=== PATIENT | male | born 1975 | race Caucasian/White ===

== ENCOUNTER 2019-06-29 12:17 | Inpatient (IN) | payer SELFPAY ==
[2019-06-29] VITALS (15 sets, daily range): BP systolic 142–180; BP diastolic 77–107; PULSE 77–95; RESP 18; TEMP 37.4–38; O2SAT 96–99
--- NOTE | 2019-06-29 12:37 | ED.GENADUL_ITS ---
Discharge Plan Disposition Patient Disposition: [facility] INPATIENT Condition: Stable Discharge Details Chief Complaint: Abd Prob Clinical Impression: Acute diverticulitis Admit Date/Time: 06/29/19 15:53 Admit Provider: Janice Petit Attending Provider: Janice Petit Primary Care Provider: None,None ED Provider: Neelima Morrell Discharge Data Discharge Date/Time-TO BE ENTERED AT DEPARTURE: 06/29/19 17:32 Medical Decision Making 1225 -- 44-year-old male with no history of abdominal surgery presents with 1 week of abdominal pain, worse since yesterday now with nausea presenting here with fever. Patient appears uncomfortable. Temp 100.4. Hypertensive. Abdomen soft. He has guarding and significant tenderness palpation around umbilicus and across lower abdomen. Positive rebound. Positive psoas sign. Surgeon Dr. Petit was in the emergency department and offered to evaluate patient while she was here. Patient had complained of a lump around his umbilicus but it appears that this is likely normal anatomic tissue or fascia and does not appear consistent with a hernia. Differential diagnosis includes appendicitis, diverticulitis, small bowel obstruction, incarcerated hernia. Will place an IV, bolus IV fluids, screening labs, lactate, blood cultures, CT abdomen and pelvis and give a dose of Zofran and morphine. 1520 --labs and imaging reviewed. White blood cell count 12. Normal electrolytes. Lactate 1.4. Lipase normal. CT notes findings consistent with diverticulitis, no abscess or free air. Patient states his pain is returning. Patient appears mildly uncomfortable. Patient would feel more comfortable being admitted overnight and surgeon is in agreement with this plan. Discussed with Dr. Oquendo who accepts patient for admission. Will start IV antibiotics and continue IV pain medication. Medical Records Medical records reviewed: Yes I reviewed the patient's medical records. Imaging Data Radiologic Study: Radiologist's impression: CT ABDOMEN AND PELVIS W CLINICAL HISTORY: lower abd pain, r/o appendicitis/diverticulitis/small bowel obstruction/incarcerated hernia. TECHNIQUE: CT of the abdomen and pelvis was carried out according to the usual protocol with an intravenous injection 100 cc of Omnipaque 350. COMPARISON: No exams were available for comparison FINDINGS: Regions of dependent atelectasis are noted involving the lung bases. The liver is unremarkable. The bladder is dilated. There is no evidence of wall thickening or pericholecystic fluid. There is no evidence of cholelithiasis. There is no evidence of ductal dilatation. The pancreas is unremarkable. The spleen, kidneys and adrenals are unremarkable. There is no evidence of bowel obstruction. The appendix is normal. Descending and sigmoid diverticula are identified. There is considerable wall thickening and adjacent inflammatory gertrude nges involving the proximal sigmoid colon, findings consistent with diverticulitis. There is no apparent abscess. There is no evidence of perforation. The bladder appears intact. Reproductive organs as visualized are unremarkable. There are small bilateral fat-containing inguinal hernias. There is a small fat-containing umbilical hernia. There is no evidence of an aortic aneurysm. No acute bony abnormality is evident. IMPRESSION: Sigmoid diverticulitis. No evidence of abscess or perforation. Lab Data Lab results reviewed: Yes I reviewed the patient's lab results. Labs: 06/29/19 13:50 Blood Blood Culture - Pending 06/29/19 13:15 Blood Blood Culture - Pending Laboratory Tests Range/Units 06/29/19 06/29/19 06/29/19 13:15 13:15 13:15 WBC (4.4-10.8) k/cumm 12.77 H RBC (4.50-6.00) m/cumm 4.71 Hgb (13.5-17.5) g/dL 14.8 Hct (40.0-50.0) % 43.3 MCV (80-95) fL 91.9 MCH (27.0-33.0) pg 31.4 MCHC (32.0-36.0) g/dL 34.2 RDW (11.8-14.1) % 13.0 Plt Count (130-400) x1000/uL 278 MPV (8.0-11.0) fL 9.1 Immature Gran % 0.3 Neutrophils % 76.3 Lymphocytes % 11.4 Monocytes % 11.2 Eosinophils % 0.6 Basophils % 0.2 Absolute Neutrophils (1.2-6.7) k/cumm 9.74 H Absolute Lymphocytes (1.2-3.4) k/cumm 1.46 Absolute Monocytes (0.11-0.7) k/cumm 1.43 H Absolute Eosinophils (0.0-0.7) k/cumm 0.08 Absolute Basophils (0.0-0.2) k/cumm 0.03 Sodium (136-145) mmol/L 141 Potassium (3.5-5.1) mmol/L 4.0 Chloride (98-107) mmol/L 105 Carbon Dioxide (21.0-32.0) mmol/L 23.7 Anion Gap (3-11) mmol/L 12.3 H BUN (7-18) mg/dL 9 Creatinine (0.70-1.30) mg/dL 0.98 Estimated GFR/1.73 m2 (mL/min/1.73m2) >= 60.00 Glucose (70-100) mg/dL 101 H Lactate (0.6-1.4) mmol/L 1.4 Calcium (8.5-10.1) mg/dL 8.3 L Total Bilirubin (0.2-1.0) mg/dL 0.9 AST (15-37) U/L 21 ALT (16-63) U/L 31 Alkaline Phosphatase (46-116) U/L 63 Total Protein (6.4-8.2) g/dL 7.6 Albumin (3.4-5.0) g/dL 3.7 Lipase (73-393) U/L 128 HPI General Mode of arrival: ambulatory . Date/Time Provider Initiated Documentation: 06/29/19 12:27 . Limitations to Documentation: no limitations . Information obtained by: patient . HPI Narrative: Patient is a 43-year-old male with no significant past medical history presents with abdominal pain for the past week, worse since yesterday. He describes the pain is constant, dull and aching with intermittent sharp stabbing pain. He denies any aggravating or alleviating factors. He admits to nausea starting today but denies any vomiting or diarrhea. Last bowel movement this morning and normal. He denies any known fever, urinary symptoms, recent travel, recent antibiotics. Related Data Home Medications Medication Instructions Recorded Confirmed ibuprofen 800 mg PO Q4H PRN PRN 12/10/15 06/29/19 amoxicillin-pot clavulanate 1 tab PO BID #14 tab 07/01/19 hydrocodone-acetaminophen 1 tab PO Q4H PRN #20 tab 07/01/19 Previous Rx's Medication Instructions Recorded amoxicillin-pot clavulanate 1 tab PO BID #14 tab 07/01/19 hydrocodone-acetaminophen 1 tab PO Q4H PRN #20 tab 07/01/19 Allergies Allergy/AdvReac Type Severity Reaction Status Date / Time Sulfa (Sulfonamide Allergy Severe fatal Unverified 06/29/19 12:24 Antibiotics) sulfamethoxazole Allergy Severe fatal Unverified 06/29/19 12:24 [From Bactrim] trimethoprim [From Bactrim] Allergy Severe fatal Unverified 06/29/19 12:24 General Stated Complaint: Abd Prob [place]: 3 Review of Systems Review of Systems ROS Unobtainable: All systems reviewed & are unremarkable except as noted in HPI and below Constitutional Constitutional: Reports as per HPI, Denies chills and Denies fever(s) Eyes Eyes: Denies blurry vision ENT Ears, Nose, Mouth, and Throat: Denies dizziness, Denies sore throat and Denies throat swelling Cardiovascular Cardiovascular: Denies chest pain and Denies dyspnea Respiratory Respiratory: Denies cough and Denies dyspnea Gastrointestinal Gastrointestinal: Denies abdominal pain, Denies diarrhea and Denies vomiting Genitourinary Genitourinary: Denies hematuria and Denies dysuria Musculoskeletal Musculoskeletal: Denies back pain and Denies numbness Integumentary/Breasts Skin/Breast: Denies lesions and Denies rash Neurologic Neurologic: Denies dizziness, Denies focal weakness and Denies numbness Allergic/Immunologic Allergic/Immunologic: Denies throat swelling [facility] Medical History No significant past medical history (Acute) Surgical History History of knee surgery (Acute) Social History Smoking/Tobacco Use Status: Current every day Alcohol Intake: never Drug use: Occasionally Substance use type: marijuana Do you feel safe at home: Yes Do you feel safe in your relationship?: Yes Exam Const General: cooperative, healthy appearing and no acute distress HENNV Head: normal to inspection Face and sinus: normal facial exam Eyes General: appearance normal, both eyes and all related structures EOM: EOM intact bilaterally Neck Neck: normal visual inspection and No submandibular swelling Lymphatic: no lymphadenopathy noted Chest Chest: normal inspection of the chest and no tenderness Resp Effort & Inspection: normal respiratory effort and able to speak in complete sentences Auscultation: clear to auscultation bilaterally Cardio Rate: regular rate Rhythm: regular rhythm GI Inspection: normal to inspection Palpation: soft, not firm, not rigid and tender (periumbilical/lower) Auscultation: hypoactive bowel sounds Skin General skin exam: no rashes or lesions noted Neuro General: alert, awake and oriented x3 Cognition: normal cognition Speech: speech normal Motor: muscle tone normal throughout Sensory Exam: no sensory deficits noted Extrem General: normal to inspection, full ROM, normal capillary refill, no calf tenderness bilaterally and no edema Psych Appearance: grossly normal Mental Status: mental status grossly normal Speech and Movement: speech and movement normal Affect: normal affect Course Vital Signs Vital signs: Vital Signs Temperature 100.4 F H 06/29/19 12:19 Pulse 95 H 06/29/19 12:19 Respiratory Rate 18 06/29/19 12:19 Blood Pressure 180/107 H 06/29/19 12:19 Pulse Oximetry 98 06/29/19 12:19 Temperature 100.4 F H 06/29/19 12:19 Temperature Source Skin 06/29/19 12:19 Pulse 95 H 06/29/19 12:19 Respiratory Rate 18 06/29/19 12:19 Blood Pressure 180/107 H 06/29/19 12:19 Pulse Oximetry 98 06/29/19 12:19 Oxygen Delivery Method Room Air 06/29/19 12:19 Oxygen Flow Rate 0 06/29/19 12:19 Pain Level 7 06/29/19 12:19 Comment denies changes in bowel or bladder 06/29/19 12:19
--- NOTE | 2019-06-29 13:05 | DI.CT_ITS ---
EXAM: CT ABDOMEN AND PELVIS W CLINICAL HISTORY: lower abd pain, r/o appendicitis/diverticulitis/small bowel obstruction/incarcerat ed hernia. TECHNIQUE: CT of the abdomen and pelvis was carried out according to the usual protocol with an intr avenous injection 100 cc of Omnipaque 350. COMPARISON: No exams were available for comparison FINDINGS: Regions of dependent atelectasis are noted involving the lung bases. The liver is unremarkable. The bladder is dilated. There is no evidence of wall thickening or pericholecystic fluid. There is no audi dence of cholelithiasis. There is no evidence of ductal dilatation. The pancreas is unremarkable. Th e spleen, kidneys and adrenals are unremarkable. There is no evidence of bowel obstruction. The josse endix is normal. Descending and sigmoid diverticula are identified. There is considerable wall thic kening and adjacent inflammatory changes involving the proximal sigmoid colon, findings consistent wi th diverticulitis. There is no apparent abscess. There is no evidence of perforation. The bladder a ppears intact. Reproductive organs as visualized are unremarkable. There are small bilateral fat-co ntaining inguinal hernias. There is a small fat-containing umbilical hernia. There is no evidence o f an aortic aneurysm. No acute bony abnormality is evident. IMPRESSION: Sigmoid diverticulitis. No evidence of abscess or perforation.
[2019-06-29 13:29] LABS: Lactate 1.4 mmol/L (0.6-1.4)
[2019-06-29 13:34] LABS: Abs Immature Grans 0.04 k/cumm (0.0-0.09); Absolute Eosinophil Count 0.08 k/cumm (0.0-0.7); Absolute Monocyte Count 1.43 k/cumm (0.11-0.7); Basophils % 0.2; Eosinophils % 0.6; HCT 43.3 % (40.0-50.0); HGB 14.8 g/dL (13.5-17.5); Immature Grans % 0.3; Lymphocytes % 11.4; Mean Corp. HGB Concentration 34.2 g/dL (32.0-36.0); Mean Corpuscular Hemoglobin 31.4 pg (27.0-33.0); Mean Corpuscular Volume 91.9 fL (80-95); Mean Platelet Volume 9.1 fL (8.0-11.0); Monocytes % 11.2; Neutrophils % 76.3; Platelet Count 278 x1000/uL (130-400); RBC 4.71 m/cumm (4.50-6.00); White Blood Cell Count 12.77 k/cumm (4.4-10.8)
[2019-06-29 13:35] LABS: Absolute Basophil Count 0.03 k/cumm (0.0-0.2); Absolute Lymphocyte Count 1.46 k/cumm (1.2-3.4); Absolute Neutrophil Count 9.74 k/cumm (1.2-6.7)
[2019-06-29] MEDS: Normal Saline 1,000 ML 1000 ML IV (13:38)
[2019-06-29] MEDS: Ondansetron 4 MG/2 ML VIAL IVP (13:38)
[2019-06-29] MEDS: ACETAMINOPHEN 1,000 MG/100 ML BTL 400 MG IVPB (13:38)
[2019-06-29 13:51] LABS: ALT 31 U/L (16-63); AST 21 U/L (15-37); Albumin 3.7 g/dL (3.4-5.0); Alkaline Phosphatase 63 U/L (46-116); Anion Gap 12.3 mmol/L (3-11); BUN 9 mg/dL (7-18); Bilirubin, Total 0.9 mg/dL (0.2-1.0); CO2 23.7 mmol/L (21.0-32.0); CREATININE 0.98 mg/dL (0.70-1.30); Calcium 8.3 mg/dL (8.5-10.1); Chloride 105 mmol/L (98-107); Glucose 101 mg/dL (70-100); Lipase 128 U/L (73-393); Sodium 141 mmol/L (136-145); Total Protein 7.6 g/dL (6.4-8.2)
[2019-06-29] MEDS: Omnipaque 350 MG/ML 100 ML BTL IJ (14:46)
[2019-06-29 15:50] LABS: Bilirubin Negative (Negative); Blood Negative (Negative); Clarity Clear (Clear); Glucose Negative (Negative); Ketones Negative (Negative); Leukocyte Esterase Negative (Negative); Nitrite Negative (Negative); Specific Gravity 1.015 (1.005-1.025); Urobilinogen 0.2 EU/dL (Up TO 0.2)
--- NOTE | 2019-06-29 16:00 | HPE_ITS ---
Date of service: 06/29/19 Time of Service: 12:39 Assessment and Plan Assessment and plan (1) Diverticulitis large intestine: Status: Acute Assessment and plan: The patient will be admitted for IV antibiotics, fluids, pain management. CBC ordered for the am Clear liquid diet Qualifiers: Diverticulitis bleeding: without bleeding Diverticulitis complication: without perforation or abscess Qualified Code(s): K57.32 - Diverticulitis of large intestine without perforation or abscess without bleeding History of Present Illness Narrative: This patient presented to the emergency department today with complaints of lower abdominal pain and a small lump at his umbilicus. He noted the lump yesterday but was having abdominal complaints for 2 or 3 days prior. He also noticed some chills and nausea but no vomiting. No change in bowel habits. He notes some urinary frequency. His appetite is good. He last ate last evening and only had some water today. CT scan of the abdomen pelvis is reviewed by me and shows evidence of sigmoid diverticulitis. The inflammation is adjacent to his bladder which accounts for his urinary symptoms. Review of Systems Constitutional Constitutional: Denies fatigue and Denies headache(s) Eyes Eyes: Denies change in vision ENT Ears, Nose, Mouth, and Throat: Denies headache(s) and Denies neck mass Cardiovascular Cardiovascular: Denies chest pain, Denies edema, Denies palpitations and Denies dyspnea Respiratory Respiratory: Denies cough, Denies dyspnea and Denies wheezing Gastrointestinal Gastrointestinal: Denies hematochezia and Denies change in bowel habits Musculoskeletal Musculoskeletal: Denies joint swelling Integumentary/Breasts Skin/Breast: Denies new lesions and Denies rash Neurologic Neurologic: Denies confusion, Denies headache(s) and Denies focal weakness Psychiatric Psychiatric: Reports system reviewed and no additional complaints, except as docu and Denies confusion Endocrine Endocrine: Denies fatigue and Denies palpitations Hematologic/Lymphatic Hematologic/Lymphatic: Denies easy bleeding and Denies lymphadenopathy Allergic/Immunologic Allergic/Immunologic: Denies wheezing [facility] Medical History No significant past medical history (Acute) Surgical History History of knee surgery (Acute) Social History (Reviewed 06/29/19 @ 13:22 by JOHNATHAN Reynolds Smoking/Tobacco Use Status: Current every day Alcohol Intake: never Drug use: Occasionally Substance use type: marijuana Do you feel safe at home: Yes Do you feel safe in your relationship?: Yes Meds Home Medications and Allergies Home Medications Medication Instructions Recorded Confirmed Type ibuprofen 800 mg PO Q4H PRN PRN 12/10/15 06/29/19 History Allergies Allergy/AdvReac Type Severity Reaction Status Date / Time Sulfa (Sulfonamide Allergy Severe fatal Unverified 06/29/19 12:24 Antibiotics) sulfamethoxazole Allergy Severe fatal Unverified 06/29/19 12:24 [From Bactrim] trimethoprim [From Bactrim] Allergy Severe fatal Unverified 06/29/19 12:24 Exam Const Nutritional Appearance: well nourished Orientation: oriented x3 Other: Appears uncomfortable HENMT Head: normal to inspection Eyes Sclera: sclerae normal Pupils: PERRL Neck Neck: no lymphadenopathy Thyroid: thyroid normal Resp Effort & Inspection: normal respiratory effort Auscultation: clear to auscultation bilaterally and no wheezes Cardio Rate: regular rate Rhythm: regular rhythm GI Inspection: non-distended Palpation: soft and no hepatosplenomegaly Other: Small soft umbilical hernia present. Does not seem to be source of symptoms. Bilateral lower abdominal tenderness present, no peritonitis Skin General skin exam: no rashes or lesions noted Neuro General: alert Cognition: normal cognition Extrem General: normal to inspection Psych Affect: normal affect Attitude: cooperative Results Labs Result diagrams: 06/29/19 13:15 06/29/19 13:15 Labs: Laboratory Results - last 24 hr 06/29/19 06/29/19 06/29/19 13:15 13:15 13:15 WBC 12.77 H RBC 4.71 Hgb 14.8 Hct 43.3 MCV 91.9 MCH 31.4 MCHC 34.2 RDW 13.0 Plt Count 278 MPV 9.1 Immature Gran % 0.3 Neutrophils % 76.3 Lymphocytes % 11.4 Monocytes % 11.2 Eosinophils % 0.6 Basophils % 0.2 Absolute Neutrophils 9.74 H Absolute Lymphocytes 1.46 Absolute Monocytes 1.43 H Absolute Eosinophils 0.08 Absolute Basophils 0.03 Sodium 141 Potassium 4.0 Chloride 105 Carbon Dioxide 23.7 Anion Gap 12.3 H BUN 9 Creatinine 0.98 Estimated GFR/1.73 m2 >= 60.00 Glucose 101 H Lactate 1.4 Calcium 8.3 L Total Bilirubin 0.9 AST 21 ALT 31 Alkaline Phosphatase 63 Total Protein 7.6 Albumin 3.7 Lipase 128 Urine Color Urine Clarity Urine pH Ur Specific [place] Urine Protein Urine Ketones Urine Blood Urine Nitrite Urine Bilirubin Urine Urobilinogen Ur Leukocyte Esterase Urine Glucose 06/29/19 15:44 WBC RBC Hgb Hct MCV MCH MCHC RDW Plt Count MPV Immature Gran % Neutrophils % Lymphocytes % Monocytes % Eosinophils % Basophils % Absolute Neutrophils Absolute Lymphocytes Absolute Monocytes Absolute Eosinophils Absolute Basophils Sodium Potassium Chloride Carbon Dioxide Anion Gap BUN Creatinine Estimated GFR/1.73 m2 Glucose Lactate Calcium Total Bilirubin AST ALT Alkaline Phosphatase Total Protein Albumin Lipase Urine Color Yellow Urine Clarity Clear Urine pH 6.0 Ur Specific [place] 1.015 Urine Protein Negative Urine Ketones Negative Urine Blood Negative Urine Nitrite Negative Urine Bilirubin Negative Urine Urobilinogen 0.2 Ur Leukocyte Esterase Negative Urine Glucose Negative Last Vital Signs Temp 100.4 F H 06/29/19 12:19 Pulse 77 06/29/19 14:16 Resp 18 06/29/19 12:19 BP 163/93 H 06/29/19 14:16 Pulse Ox 96 06/29/19 14:30
[2019-06-29] MEDS: Normal Saline Flush 10 ML SYR IVP ×2 (18:14→20:57)
[2019-06-29] MEDS: Lactated Ringers 1,000 ML 75 ML IV (18:25)
--- NOTE | 2019-06-29 18:35 | NUR.NOTE ---
Nursing Note: Pt to [facility] floor at 1737 from ER via stretcher. Ambulated independently from stretcher to bed. A&Ox3, VSS. BSx4. Pain 8/10; morphine administered with good relief. Pt oriented to MS floor, call ordaz, TV, etc. Call ordaz within reach. RN will continue to monitor.
[2019-06-29] MEDS: CIPROFLOXACIN 400 MG/200 ML BAG 200 MG IVPB (20:05)
[2019-06-29] MEDS: Acetaminophen 325 MG TAB 650 MG PO (20:30)
[2019-06-29] MEDS: metroNIDAZOLE 500 MG/100 ML BAG 100 MG IVPB (22:01)
[2019-06-30] VITALS (8 sets, daily range): BP systolic 134–157; BP diastolic 79–98; PULSE 67–76; RESP 17–18; TEMP 36.5–37.9; O2SAT 96–98
[2019-06-30] MEDS: metroNIDAZOLE 500 MG/100 ML BAG 100 MG IVPB ×3 (04:27→19:47)
[2019-06-30] MEDS: Normal Saline Flush 10 ML SYR IVP ×7 (04:27→17:56)
[2019-06-30] MEDS: CIPROFLOXACIN 400 MG/200 ML BAG 200 MG IVPB ×2 (06:16→17:52)
[2019-06-30 07:12] LABS: Abs Immature Grans 0.03 k/cumm (0.0-0.09); Absolute Basophil Count 0.01 k/cumm (0.0-0.2); Absolute Eosinophil Count 0.11 k/cumm (0.0-0.7); Absolute Lymphocyte Count 1.36 k/cumm (1.2-3.4); Absolute Monocyte Count 0.97 k/cumm (0.11-0.7); Basophils % 0.1; Eosinophils % 1.2; HCT 38.7 % (40.0-50.0); HGB 13.3 g/dL (13.5-17.5); Immature Grans % 0.3; Lymphocytes % 15.2; Mean Corp. HGB Concentration 34.4 g/dL (32.0-36.0); Mean Corpuscular Hemoglobin 32.2 pg (27.0-33.0); Mean Corpuscular Volume 93.7 fL (80-95); Mean Platelet Volume 9.1 fL (8.0-11.0); Monocytes % 10.9; Neutrophils % 72.3; Platelet Count 244 x1000/uL (130-400); RBC 4.13 m/cumm (4.50-6.00); RBC Distribution Width 12.9 % (11.8-14.1); White Blood Cell Count 8.93 k/cumm (4.4-10.8)
[2019-06-30 07:14] LABS: Absolute Neutrophil Count 6.46 k/cumm (1.2-6.7)
--- NOTE | 2019-06-30 12:19 | PHARADMIT ---
Admission Pharmacy Clinical Review Diverticulitis Code Status Full Code Current Weight Wgt-97.5 kg Renally Cleared and Narrow Therapeutic Index Meds CrCl~ 104 mL/min Meds-OK QTc Value / Action Taken NA BP Control, Fever BP- 145/97 Tmax-37.4C Electrolytes reviewed Na-141 K+4.0 DVT Prophylaxis No ? surgery Opiate Usage / Scheduled Bowel Regimen Ordered Yes No (NPO) Plt/SCr for Heparin / Enoxaparin Plts-244 SCr- 0.98 INR for Warfarin na H/H stable, WBC/Bands H&H- 13.3/38.7 WBC- 8.93 Antibiotic appropriateness IV Cipro-Flagyl Cultures and Sensitivities B;lood-pending Surgical ABX d/c within 24 hr na DM control / Insulin Dosing BG-101 Heart Failure (Check EF%) (NEETA's, B-Block, Diuretics) none IV to PO Switch No Home Meds Reviewed Yes Home Meds Not Ordered Ibuprofen, amoxil, Medrol Comments
[2019-06-30] MEDS: Ketorolac 30 MG/ML VIAL IVP (12:45)
[2019-06-30] MEDS: Lactated Ringers 1,000 ML 75 ML IV (12:50)
--- NOTE | 2019-06-30 18:42 | PDOC.CMIN ---
- If Service Date Differs Date of service: 06/30/19 Time of Service: 18:43 Care Management Initial Assess REASON FOR HOSPITALIZATION:: Diverticulitis large intestine PAST MEDICAL HISTORY/PAST SURGICAL HISTORY:: Medical History : No significant past medical history (Acute). Surgical History: History of knee surgery (Acute) PREVIOUS FUNCTIONAL STATUS/SOCIAL/FAMILY SUPPORTS:: Taras lives in a single family house in [place] with his girlfriend and a male friend. 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 Taras says he doesn't hospital well. He has a good sense of humor which he displayed often during the conversation, even while experiencing pain. Taras is independent at baseline and is very active. CURRENT FUNCTIONAL STATUS:: Taras was laying in bed when CM met with him. He was pleasant and cooperative and readily engaged in conversation. He stated that he has been sick for most of the past week but kept thinking it would go away. He said he is starting to feel better and that the pain is responding to the medication he is receiving. ADVANCE DIRECTIVES:: provided with a copy of the [facility] AD forms at his request. Has patient been provided with information about the portal?: Yes Did the patient sign up for the portal?: No CODE STATUS:: Full Code INSURANCE COVERAGE / FINANCIAL ISSUES:: self pay CURRENT HOME/COMMUNITY SERVICES/EQUIPMENT:: none currently PRIMARY CARE PHYSICIAN:: None currently POTENTIAL DISCHARGE NEEDS:: Insurance, a primary care physician, follow up care PATIENT/FAMILY EDUCATION NEEDS:: Discharge plan. limitations, follow up plan, Ask Me Three. ANTICIPATED BARRIERS TO DISCHARGE:: none identified TRANSPORTATION:: via private vehicle with friends PLAN:: Taras is being treated for diverticulitis. He will likely be discharged home with no services. He will transport via private vehicle with friends. CM will continue to support patient, family and discharge planning process.
[2019-06-30] MEDS: Acetaminophen 325 MG TAB 650 MG PO (19:46)
--- NOTE | 2019-06-30 23:03 | W.PM.PROGNOT ---
Date of Service Date of service: 06/30/19 Time of Service: 17:40 Assessment and Plan Assessment and plan (1) Diverticulitis large intestine: Status: Acute Assessment and plan: His WBC has improved and exam is slightly better Continues to have fever and require IV narcotic pain meds Will need to stay on IV antibiotics until those issues resolve Qualifiers: Diverticulitis bleeding: without bleeding Diverticulitis complication: without perforation or abscess Qualified Code(s): K57.32 - Diverticulitis of large intestine without perforation or abscess without bleeding Subjective Subjective Interval history since last seen: Still having lower abdominal pain that is being treated with morphine. Umbilicus is no longer tender Tolerating small amount of food but appetite is poor. No N/V Had BM yesterday Exam Narrative Exam Narrative: Appears uncomfortable but not toxic Abdomen soft, tender bilateral lower quadrants but no peritonitis. Stable/slightly improved from yesterday Objective Objective Clinical Data: Abnormal lab results 06/30/19 Range/Units 06:55 RBC 4.13 L (4.50-6.00) m/cumm Hgb 13.3 L (13.5-17.5) g/dL Hct 38.7 L (40.0-50.0) % Absolute Monocytes 0.97 H (0.11-0.7) k/cumm Vital Signs Temperature 100.2 F H 06/30/19 19:46 Temperature Source Tympanic 06/30/19 19:18 Pulse 76 06/30/19 19:18 Pulse Rhythm Regular 06/30/19 08:19 Respiratory Rate 17 06/30/19 19:18 Respiratory Effort Non-Labored 06/30/19 08:19 Respiratory Depth Normal 06/30/19 08:19 Respiratory Pattern Normal 06/30/19 08:19 Blood Pressure 157/91 H 06/30/19 19:18 Blood Pressure Mean 110 06/29/19 14:16 Pulse Oximetry 97 06/30/19 19:18 Oxygen Delivery Method Room Air 06/30/19 19:18 Oxygen Flow Rate 0 06/30/19 19:18 Pain Level 0 06/30/19 19:18 Comment 06/30/19 10:00 Intake & Output 06/29/19 06/30/19 06/30/19 23:59 11:59 23:59 Intake Total 2140 / 2140 1800 / 3461.25 1661.25 / 3461.25 Balance 2140 / 2140 1800 / 3461.25 1661.25 / 346.25 Weight 214 lb 15.987 oz Intake: IV 1420 / 1420 1320 / 2020.25 701.25 / 2020. Oral 720 / 720 480 / 1440 960 / 1440 Other: Urine Color Yellow Urine Appearance Clear Clear Urine Odor Normal Comment pt voiding independently. Pt voiding ad rosa in toilet; removed hat, no measurement. Voiding Methods Toilet Toilet Laboratory Results WBC 8.93 k/cumm (4.4-10.8) D 06/30/19 06:55 RBC 4.13 m/cumm (4.50-6.00) L 06/30/19 06:55 Hgb 13.3 g/dL (13.5-17.5) L 06/30/19 06:55 Hct 38.7 % (40.0-50.0) L 06/30/19 06:55 MCV 93.7 fL (80-95) 06/30/19 06:55 MCH 32.2 pg (27.0-33.0) 06/30/19 06:55 MCHC 34.4 g/dL (32.0-36.0) 06/30/19 06:55 RDW 12.9 % (11.8-14.1) 06/30/19 06:55 Plt Count 244 x1000/uL (130-400) 06/30/19 06:55 MPV 9.1 fL (8.0-11.0) 06/30/19 06:55 Immature Gran % 0.3 06/30/19 06:55 Neutrophils % 72.3 06/30/19 06:55 Lymphocytes % 15.2 06/30/19 06:55 Monocytes % 10.9 06/30/19 06:55 Eosinophils % 1.2 06/30/19 06:55 Basophils % 0.1 06/30/19 06:55 Absolute Neutrophils 6.46 k/cumm (1.2-6.7) 06/30/19 06:55 Absolute Lymphocytes 1.36 k/cumm (1.2-3.4) 06/30/19 06:55 Absolute Monocytes 0.97 k/cumm (0.11-0.7) H 06/30/19 06:55 Absolute Eosinophils 0.11 k/cumm (0.0-0.7) 06/30/19 06:55 Absolute Basophils 0.01 k/cumm (0.0-0.2) 06/30/19 06:55 Sodium 141 mmol/L (136-145) 06/29/19 13:15 Potassium 4.0 mmol/L (3.5-5.1) 06/29/19 13:15 Chloride 105 mmol/L (98-107) 06/29/19 13:15 Carbon Dioxide 23.7 mmol/L (21.0-32.0) 06/29/19 13:15 Anion Gap 12.3 mmol/L (3-11) H 06/29/19 13:15 BUN 9 mg/dL (7-18) 06/29/19 13:15 Creatinine 0.98 mg/dL (0.70-1.30) 06/29/19 13:15 Estimated GFR/1.73 m2 >= 60.00 (mL/min/1.73m2) 06/29/19 13:15 Glucose 101 mg/dL (70-100) H 06/29/19 13:15 Lactate 1.4 mmol/L (0.6-1.4) 06/29/19 13:15 Calcium 8.3 mg/dL (8.5-10.1) L 06/29/19 13:15 Total Bilirubin 0.9 mg/dL (0.2-1.0) 06/29/19 13:15 AST 21 U/L (15-37) 06/29/19 13:15 ALT 31 U/L (16-63) 06/29/19 13:15 Alkaline Phosphatase 63 U/L (46-116) 06/29/19 13:15 Total Protein 7.6 g/dL (6.4-8.2) 06/29/19 13:15 Albumin 3.7 g/dL (3.4-5.0) 06/29/19 13:15 Lipase 128 U/L (73-393) 06/29/19 13:15 Urine Color Yellow (Yellow) 06/29/19 15:44 Urine Clarity Clear (Clear) 06/29/19 15:44 Urine pH 6.0 (5-8) 06/29/19 15:44 Ur Specific [place] 1.015 (1.005-1.025) 06/29/19 15:44 Urine Protein Negative mg/dL (Negative) 06/29/19 15:44 Urine Ketones Negative mg/dL (Negative) 06/29/19 15:44 Urine Blood Negative (Negative) 06/29/19 15:44 Urine Nitrite Negative (Negative) 06/29/19 15:44 Urine Bilirubin Negative (Negative) 06/29/19 15:44 Urine Urobilinogen 0.2 EU/dL (Up TO 0.2) 06/29/19 15:44 Ur Leukocyte Esterase Negative (Negative) 06/29/19 15:44 Urine Glucose Negative mg/dL (Negative) 06/29/19 15:44
[2019-07-01 03:26] VITALS: BP 160/85; PULSE 65; RESP 18; TEMP 37.2; O2SAT 99
[2019-07-01] MEDS: Lactated Ringers 1,000 ML 75 ML IV (03:59)
[2019-07-01] MEDS: metroNIDAZOLE 500 MG/100 ML BAG 100 MG IVPB (04:00)
[2019-07-01] MEDS: CIPROFLOXACIN 400 MG/200 ML BAG 200 MG IVPB (06:45)
[2019-07-01 07:26] VITALS: BP 131/81; PULSE 85; RESP 17; TEMP 36.8; O2SAT 98
[2019-07-01] MEDS: Normal Saline Flush 10 ML SYR IVP ×2 (07:57→11:11)
--- NOTE | 2019-07-01 10:24 | W.PM.DS.N ---
Date of service: 07/01/19 Time of Service: 10:24 DS: Diagnosis Discharge Diagnosis (1) Diverticulitis large intestine: Status: Acute Discharge Plan Disposition Patient Disposition: HOME Condition: Stable Discharge Details Chief Complaint: Abd Prob Clinical Impression: Acute diverticulitis Reason For Visit: DIVERTICULITIS Admit Date/Time: 06/29/19 15:53 Admit Provider: Janice Petit Attending Provider: Janice Petit Primary Care Provider: None,None ED Provider: Neelima Morrell Hospital Course Hospital Course: The patient was admitted with lower abdominal pain, fever and an elevated white blood cell count. CT scan of the abdomen pelvis was consistent with sigmoid diverticulitis without perforation. He was placed on ciprofloxacin and Flagyl. The day after admission his white blood cell count had normalized but he continued to have fever. He also was continuing to require morphine for pain control. The patient was kept for another day of IV antibiotics and on the day of discharge had improved significantly. His temperature had normalized, he was tolerating a diet and was requiring less pain medication. On examination his abdomen revealed decreased distention. He did still have some bilateral lower abdominal tenderness but this was definitely improved from admission. He was discharged home. An off work note was given to him for the following week if needed. He was sent home with oral narcotics and Augmentin. He will follow-up with me in 2 months to discuss a colonoscopy or sooner as needed. Home Meds and New Rx's Prescriptions: New amoxicillin-pot clavulanate 875-125 mg tablet 1 tab PO BID Qty: 14 RF: 0 hydrocodone-acetaminophen 5-325 mg tablet 1 tab PO Q4H PRN (Reason: pain) Qty: 20 RF: 0 Continued ibuprofen 200 MG capsule 800 mg PO Q4H PRN PRNRF: 0 Discharge Instructions Additional Instructions: Call for any concerns including fever, increased pain, vomiting. Do not drive if on narcotic pain meds or if limited by pain. May use Tylenol alternating with ibuprofen for pain control. Ice is also an option. The maximum dose for Tylenol is 4000 mg/day. May use ibuprofen 800 mg every 8 hours as needed. If concerned about constipation, you may use a stool softener or milk of magnesia. Referrals: Janice Petit MD [ [facility] STAFF PHYSICIAN] - (Return in two months to discuss colonoscopy or sooner if symptoms persist) Activity:: Activity as Tolerated Equipment/Supplies:: No Equipment Needed Diet:: As Tolerated Discharge Orders Discharge Orders: Discharge Order (Routine); Ordered 07/01/19 Ordered By: Janice Petit DS: Summary Status at Discharge Functional status at discharge: independent ambulation Overall status at discharge: patient is progressing back to baseline Mental Status: mental status grossly normal Speech and Movement: speech and movement normal Mood: congruent mood Affect: normal affect Exam Psych Mental Status: mental status grossly normal Speech and Movement: speech and movement normal Mood: congruent mood Affect: normal affect DS: Data Vitals/I&O Vitals and I&O: Vital Signs Temperature 98.2 F 07/01/19 07:26 Temperature Source Tympanic 07/01/19 07:26 Pulse 85 07/01/19 07:26 Pulse Rhythm Regular 07/01/19 07:55 Respiratory Rate 17 07/01/19 07:26 Respiratory Effort Non-Labored 07/01/19 07:55 Respiratory Depth Normal 07/01/19 07:55 Respiratory Pattern Normal 07/01/19 07:55 Blood Pressure 131/81 07/01/19 07:26 Blood Pressure Mean 110 06/29/19 14:16 Pulse Oximetry 98 07/01/19 07:26 Oxygen Delivery Method Room Air 07/01/19 07:26 Oxygen Flow Rate 0 07/01/19 07:26 Pain Level 5 07/01/19 07:57 Comment 06/30/19 10:00 Intake & Output 06/30/19 06/30/19 07/01/19 11:59 23:59 11:59 Intake Total 1800 / 3761.25 196. / 3761.25 2079. / 2079.00 Balance 1800 / 3761.25 1960. / 1.25 2079. / 2079.00 Intake: IV 1320 / 2321.25 1001.25 / 2321.25 800.00 / 800.00 Oral 480 / 1440 960 / 1440 1280 / 1280 Other: Urine Color Yellow Yellow Urine Appearance Clear Clear Clear Urine Odor Normal Normal Comment Pt voiding ad rosa in toilet; removed hat, no measurement. Pt voiding ad rosa in toilet. Removed hat. Pt denies sx. Voiding Methods Toilet Toilet Toilet Data Completed and Pending Labs on day of discharge: Preliminary micro results at discharge 06/29/19 13:50 Blood Culture - Preliminary Blood NO GROWTH 24 HOURS 06/29/19 13:15 Blood Culture - Preliminary Blood NO GROWTH 24 HOURS [facility]LY [facility], [facility] Medical History No significant past medical history (Acute) Surgical History History of knee surgery (Acute) Social History Smoking/Tobacco Use Status: Current every day Alcohol Intake: never Drug use: Occasionally Substance use type: marijuana Do you feel safe at home: Yes Do you feel safe in your relationship?: Yes
[2019-07-01 11:55] VITALS: BP 124/105; PULSE 86; RESP 17; TEMP 36.9; O2SAT 97
--- NOTE | 2019-07-01 13:56 | CMDISCH_ITS ---
- If Service Date Differs Date of service: 07/01/19 Time of Service: 13:56 LACE Index Scoring Tool - Questions: Length of Stay (in days): 2 Acuity (Admit via E.D.?): Yes E.D. Visits: 1 - Answers: Total Score: 6 Risk of Readmission: Low Risk Care Management Discharge Reason for Hospitalization: Diverticulitis large intestine Discharge Plan: Will will be discharged home this afternoon with no new services. He will follow up with his surgeon as recommended. Will has no insuran ce and expressed concerns about his hospital bills. CM provided him with information about [employer] (pamphlet) and also provided him with the [facility] Patient Assistance application. He will transport via private vehicle with friends. Patient/Family Education Needs: Discharge plan, limitations, follow up plan, Ask Me Three.
--- NOTE | 2019-07-05 11:41 | PDOC.CMPRO ---
- If Service Date Differs Date of service: 07/05/19 Time of Service: 11:41 Care Management Progress Note S/O:AUGUSTO contacted Will as a follow up call r/t recent admission and concerns r/t blood in stool. Will states he has been having frequent bowel movements that are pudding consistency and he feels that they look bloody. He is not symptomatic of bleeding per his report no dizziness, he states he has been having infrequent sharp pain above his left hip bone in his lower abdomen. He does not have follow up scheduled with he is requesting that an appointment be made to address his concerns. Will does report he took 1600 mg of ibuprofen this morning. AUGUSTO reviewed recommended dose of Ibuprofen at 800mg as ordered and educated the risk of taking more than recommended dose including bleeding, and kidney injury. AUGUSTO will contact 's office and request follow up with provider and direct contact to the patient to address his concerns. P: CM contacted 's office they will contact patient directly to schedule appointment. Demetrio has this writers contact information if needed and agrees to the plan.
== END 2019-07-01 11:42 | disposition home or self-care (01) | DRG 392 ==
LOC: ER 17:02 → MS 17:35
PROVIDERS: Admitting Provider Surgery; Emergency Provider Physician Assistant; Visit Provider Surgery
DX: K57.32 Diverticulitis of large intestine without perforation or abscess without bleeding (principal)
CPT/HCPCS: 36415; 80053; 83690; 87040; 96361; 96365; 96366; 96375; 99222; 99231; 99238; 99285; 74177; 81003; 83605; 85025; 99284; J0131; J0744; J1885; J2405; J3490

== ENCOUNTER 2020-04-26 16:05 | Emergency (ER) | payer OTHER, SELFPAY ==
[2020-04-26 16:09] VITALS: BP 133/90; PULSE 81; RESP 20; TEMP 36.1; O2SAT 98
--- NOTE | 2020-04-26 16:15 | DI.RAD_ITS ---
EXAM: XR FOOT RT COMPLETE CLINICAL HISTORY: pain. TECHNIQUE: 2D digital imaging was performed. COMPARISON: No exams were available for comparison FINDINGS: BONES: No acute fracture is present. No bony destructive lesion is seen. JOINTS: No dislocation present. SOFT TISSUE: Normal. IMPRESSION: Unremarkable radiographs of the right foot. DATA REPOSITORY: RADIATION DOSE DELIVERED:
--- NOTE | 2020-04-26 16:22 | ED.GENADUL_ITS ---
Discharge Plan Disposition Patient Disposition: HOME Condition: Stable Discharge Details Chief Complaint: Vascular Clinical Impression: Gout attack Primary Care Provider: Elin Mckeon ED Provider: Moriah Escobar Home Meds and New Rx's Prescriptions: New indomethacin 25 mg capsule 25 mg PO TID 7 Days Qty: 21 RF: 0 No Action amoxicillin-pot clavulanate 875-125 mg tablet 1 tab PO BID Qty: 14 RF: 0 polyethylene glycol 3350 17 gram/dose powder 238 g PO ONCE Qty: 238 RF: 0 bisacodyl 5 mg tablet,delayed release (DR/EC) 5 mg PO ONCE Qty: 4 RF: 0 amlodipine 5 mg tablet 5 mg PO DAILY Qty: 30 RF: 0 ibuprofen 200 MG capsule 800 mg PO Q4H PRN PRNRF: 0 Discharge Instructions Instructions: Gout (ED) Additional Instructions: Follow up with primary care provider in 3-5 days. Return to ED sooner if any worsening or concerns. Increase oral fluids. Try to decrease your alcohol intake. Stay away from red meats and high purine foods as noted in discharge instructions. Take medications as prescribed. Return to the ED for any fever, worsening pain, redness or swelling or any concerns. Referrals: Elin Mckeon, WASH WORKER [Primary Care Provider] - Medical Decision Making 44-year-old male presents to the ER with chief complaint of right foot and ankle pain which began suddenly approximately 1-2 hours prior to arrival. Patient states that he was sitting around drinking some beers (reports 5 or 6) and began with cramping type pain to foot radiates up into his leg. Denies any known injury. He did take amlodipine 5 mg for the first time today at 915 he is also on Augmentin for diverticulitis and bisacodyl tablet. He is a smoker he denies any drugs. Extremity is intact dorsal pedal pulses non-erythemic non-warm no significant swelling noticed. 1627: At this time work-up ordered including x-ray of right foot, labs including CBC, magnesium, CMP normal saline 1 L, and Toradol and Zofran. At this time differential diagnosis includes foot injury, gout, DVT, muscle cramp, electrolyte abnormality. Imaging protocol: XR Right foot. Views: 3 or more views. COMPARISON: No relevant prior studies available. FINDINGS: Bones/joints: Normal. Soft tissues: Normal. IMPRESSION: No acute bony findings. If clinical symptoms persist recommend followup film in 7-10 days. Thank you for allowing us to participate in the care of your patient. Dictated and Authenticated by: Karolina Choi MD White blood cell count is 14.80, anion gap is 13.0, uric acid is 11.1 which is elevated. At this time findings are consistent with possible gout versus pseudogout patient does endorse having red meat today. Upon review of patient's medical records in 2012 he did have a similar episode which was relate d to possible gout. Patient was given prescription of indomethacin 25 mg 3 times a day x7 days and was given indomethacin here in department prior to discharge. Discussed labs and x-ray with patient, verbalized understanding. This text was generated using [employer] dictation system, please disregard any oddities of phrase or misspellings. HPI General Mode of arrival: wheelchair . Date/Time Provider Initiated Documentation: 04/26/20 16:06 . Limitations to Documentation: no limitations . Information obtained by: patient . HPI Narrative: 44-year-old male presents to the ER with chief complaint of right foot and ankle pain which began suddenly approximately 1-2 hours prior to arrival. Patient states that he was sitting around drinking some beers (reports 5 or 6) and began with cramping type pain to foot radiates up into his leg. Denies any known injury. He did take amlodipine 5 mg for the first time today at 915 he is also on Augmentin for diverticulitis and bisacodyl tablet. He is a smoker he denies any drugs. Extremity is intact dorsal pedal pulses non-erythemic non-warm no significant swelling noticed. Related Data Home Medications Medication Instructions Recorded Confirmed ibuprofen 800 mg PO Q4H PRN PRN 12/10/15 04/26/20 amoxicillin 875 mg-potassium 1 tab PO BID #14 tab 04/24/20 04/26/20 clavulanate 125 mg tablet bisacodyl 5 mg tablet,delayed 5 mg PO ONCE #4 tab 04/24/20 04/26/20 release polyethylene glycol 3350 17 238 g PO ONCE #238 gm 04/24/20 04/26/20 gram/dose oral powder amlodipine 5 mg tablet 5 mg PO DAILY #30 tab 04/25/20 04/26/20 indomethacin 25 mg PO TID 7 Days #21 cap 04/26/20 Previous Rx's Medication Instructions Recorded amoxicillin 875 mg-potassium 1 tab PO BID #14 tab 04/24/20 clavulanate 125 mg tablet bisacodyl 5 mg tablet,delayed 5 mg PO ONCE #4 tab 04/24/20 release polyethylene glycol 3350 17 238 g PO ONCE #238 gm 04/24/20 gram/dose oral powder amlodipine 5 mg tablet 5 mg PO DAILY #30 tab 04/25/20 indomethacin 25 mg PO TID 7 Days #21 cap 04/26/20 Allergies Allergy/AdvReac Type Severity Reaction Status Date / Time Sulfa (Sulfonamide Allergy Severe fatal Unverified 04/25/20 12:05 Antibiotics) sulfamethoxazole Allergy Severe fatal Unverified 04/25/20 12:05 [From Bactrim] trimethoprim [From Bactrim] Allergy Severe fatal Unverified 04/25/20 12:05 General Stated Complaint: Vascular [place]: 3 Review of Systems Narrative: Constitutional: Negative for weight loss, alert and oriented, well groomed, normal body habitus, appears uncomfortable. HEENT: Denies trauma, headaches, blurry vision, nasal discharge, sore throat, trouble swallowing. Chest: Denies chest pain, palpitations, irregular rhythm, hypertension. Respiratory: Denies Shortness of breath, cough, hemoptysis. GI: Denies abdominal pain, vomiting, constipation. Positive nausea which he attributes to the pain, some diarrhea which she has been treated for diverticulitis. : Denies dysuria, hematuria, flank pain, rectal bleeding. Extremities: Right foot and ankle pain radiating up into lower extremity Neuro: Denies dizziness, blurry vision, weakness, syncope, headache or facial numbness. Hematologic: Denies easy bruising, intolerance to heat or cold, hair loss. [facility] Medical History No significant past medical history (Acute) Surgical History History of knee surgery (Acute) Social History Smoking/Tobacco Use Status: Current every day Alcohol Intake: current Alcohol Intake frequency: a few times a week Alcohol type: beer and hard liquor Drug use: Occasionally Substance use type: marijuana Do you feel safe at home: Yes Do you feel safe in your relationship?: Yes Exam Narrative Exam Narrative: Constitutional: Alert and oriented x3. Appears stated age. Obese body habitus. Head: Normocephalic, no trauma. Eyes: Pupils PERRLA, Red reflex noted, EOM's intact. Eyelids symmetrical without lesions, discharge, or swelling. ENT: Bilateral TM's WNL, External ear normal to inspection, no mastoid TTP, swelling, or erythema, Nasal turbinates WNL, no nasal discharge. Normal dentition, Posterior pharynx WNL, no exudate. Chest: RRR, Normal S1, S2, distal pulses intact. Resp: Lungs clear to auscultation bilaterally, no wheezes, rales, or rhonchi. Musculoskeletal: Normal gait, 5/5 strength to all four extremities. Tenderness noted to Achilles tendon, calcaneal tenderness with palpation, but increased muscle cramping noted. No obvious deformity, erythema, warmth or swelling noted. Skin: No suspicious rashes or lesions. Capillary refill less than 2 sec. Neurologic: Cranial nerves II-XII intact. Alert and oriented x 3. DTR's intact. Hematologic/Lymphatic: No ecchymosis, no lymphadenopathy. Course Vital Signs Vital signs: Vital Signs Temperature 36.1 C L 04/26/20 16:09 Pulse 81 04/26/20 16:09 Respiratory Rate 04/26/20 16:09 Blood Pressure 133/90 04/26/20 16:09 Pulse Oximetry 98 04/26/20 16:09 Temperature 36.1 C L 04/26/20 16:09 Temperature Source Temporal Artery Scan 04/26/20 16:09 Pulse 81 04/26/20 16:09 Respiratory Rate 20 04/26/20 16:09 Respiratory Effort Non-Labored 04/26/20 16:14 Blood Pressure 133/90 04/26/20 16:09 Blood Pressure Position Supine 04/26/20 16:09 Pulse Oximetry 98 04/26/20 16:09 Oxygen Delivery Method Room Air 04/26/20 16:09 Oxygen Flow Rate 0 04/26/20 16:09 Pain Level 10 04/26/20 16:09
[2020-04-26] MEDS: Ketorolac 15 MG/ML VIAL IVP (16:53)
[2020-04-26] MEDS: Normal Saline 1,000 ML 1000 ML IV (16:53)
[2020-04-26] MEDS: Ondansetron 4 MG/2 ML VIAL IVP (16:53)
[2020-04-26 16:59] LABS: Abs Immature Grans 0.06 10^3/uL (0.0-0.06); Absolute Basophil Count 0.04 10^3/uL (0.0-0.2); Absolute Eosinophil Count 0.07 10^3/uL (0.0-0.7); Absolute Lymphocyte Count 1.85 10^3/uL (1.2-3.4); Absolute Monocyte Count 0.98 10^3/uL (0.1-0.8); Absolute Neutrophil Count 11.87 10^3/uL (1.2-6.7); Basophils % 0.3; Eosinophils % 0.5; HCT 45.9 % (40.0-50.0); Immature Grans % 0.4; Lymphocytes % 12.4; MCHC 34.9 % (32.0-36.0); MCV 91.8 fL (80-95); MPV 9.5 fL (8.0-11.0); Monocytes % 6.6; Neutrophils % 79.8; Nucleated RBC 0 %; Platelet Count 333 10^3/uL (130-400); RDW 12.8 % (11.8-14.1); RDW-SD 42.7 fL; WBC 14.88 10^3/uL (4.4-10.8)
--- NOTE | 2020-04-26 17:07 | DI.VRAD_ITS ---
PROCEDURE INFORMATION: Exam: XR Right Foot Complete Exam date and time: 04/26/2020 4:57 PM Age: 44 years old Clinical indication: Other: Pain TECHNIQUE: Imaging protocol: XR Right foot. Views: 3 or more views. COMPARISON: No relevant prior studies available. FINDINGS: Bones/joints: Normal. Soft tissues: Normal. IMPRESSION: No acute bony findings. If clinical symptoms persist recommend followup film in 7-10 days. Dictated and Authenticated by: Karolina Choi MD. Ordering:ELDA Major MD
[2020-04-26 17:20] VITALS: RESP 16
[2020-04-26 17:20] LABS: ALT 57 U/L (16-63); AST 31 U/L (15-37); Albumin 3.7 g/dL (3.4-5.0); Alkaline Phosphatase 66 U/L (46-116); BUN 15 mg/dL (7-18); Calcium 8.8 mg/dL (8.5-10.1); Chloride 101 mmol/L (98-107); Estimated GFR 51.08 (mL/min/1.73m2); Glucose 146 mg/dL (74-106); Magnesium 1.8 mg/dL (1.8-2.4); Potassium 3.6 mmol/L (3.5-5.1); Sodium 137 mmol/L (136-145); Total Protein 7.5 g/dL (6.4-8.2)
[2020-04-26 17:21] LABS: Uric Acid 11.1 mg/dL (3.5-7.2)
[2020-04-26] MEDS: Indomethacin 25 MG CAP 50 MG PO (18:20)
[2020-04-26 18:22] VITALS: BP 125/78; PULSE 94; TEMP 36.2; O2SAT 95
== END 2020-04-26 18:35 | disposition home or self-care (01) ==
PROVIDERS: Emergency Provider Registered Nurse Emergency; PCP Nurse Practitioner
DX: M10.9 Gout, unspecified (principal)
CPT/HCPCS: 36415; 80053; 96361; 96374; 96375; 99284; 73630; 83735; 84550; 85025; J1885; J2405

== ENCOUNTER 2020-05-06 07:37 | Day surgery (SDC) | payer OTHER, SELFPAY ==
[2020-05-06 07:39] VITALS: BP 134/88; PULSE 101; RESP 16; TEMP 36.1; O2SAT 98
[2020-05-06] MEDS: Lactated Ringers 1,000 ML 80 ML IV (07:55)
--- NOTE | 2020-05-06 08:05 | W.PM.DSUDISC ---
Discharge Plan Disposition Patient Disposition: HOME Condition: Good Discharge Details Reason For Visit: Colonoscopy Attending Provider: Janice Petit Primary Care Provider: Elin Mckeon Home Meds and New Rx's Prescriptions: Continued lisinopril 20 mg tablet 20 mg PO DAILY Qty: 90 RF: 3 amlodipine 10 mg tablet 10 mg PO DAILY Qty: 90 RF: 3 Discharge Instructions Additional Instructions: Findings: One small polyp was removed. My office will contact you with biopsy results. Diverticulosis with some mild inflammation was noted in the sigmoid colon. Make sure to take in 30 grams of fiber daily. Follow up: A colonoscopy may be needed in 5 years if the polyp is adenomatous. Please call if you develop: fevers >101.5 Nausea or Vomiting Abdominal pain that is not transient DAY SURGERY UNIT POST COLONOSCOPY INSTRUCTIONS 1. Because there will be medication in your system for the next 24 hours, you may feel a little sleepy. Your coordination will be affected. Therefore: a. Do not drive or operate dangerous equipment for 24 hours. b. Do not drink alcohol beverages for 24 hours (not even beer). c. Plan to go home and rest for the day. 2. Generally there are no restrictions on your activity after a day or so has gone by, but you may feel a bit fatigued for a few days. 3 After you arrive home you may have a light meal and return to a normal diet as you can tolerate it without feeling sick to your stomach. 4. After surgery, you may feel pain or discomfort. This should be only transient, but if it persists please contact your doctor. 5. If there are any questions regarding the findings of your procedure, please feel free to contact your doctor. 6. If you are unable to contact your doctor with a problem, contact the hospital at [phone]. 7. Continue all your regular medications unless directed otherwise. I understand the above instructions and have no questions. Signature of Patient or Responsible Adult Escort Date/Time Name of Responsible Adult Escort Signature of Nurse Date/Time Activity:: Activity as Tolerated Diet:: As Tolerated Discharge Orders Discharge Orders: Discharge Order (Routine); Ordered 05/06/20 Ordered By: Janice Petti DS: Diagnosis Discharge Diagnosis (1) Diverticulitis large intestine: Status: Acute (2) Colon polyp: Status: Acute
--- NOTE | 2020-05-06 08:10 | COLE_ITS ---
Date of service: 05/06/20 Time of Service: 09:05 Colonoscopy Report Date of procedure: 05/06/20 Pre-op diagnosis general: Diverticulitis, FH colon cancer Post-op diagnosis procedure note: same (Ascending and transverse colon polyp) Procedure: Colonoscopy with snare polypectomy and cautery of polyp Surgeon: Janice Petit Anesthesia proc note operative: MAC Indications: This 44 year old man presented last fall with presumed diverticulitis. He presents for follow up colonoscopy. His mother had colon cancer in her 60s Procedure Description: The patient was placed in the left Schroeder position. Propofol was titrated to sedation. Digital rectal examination revealed no ab normalities. The scope was advanced to the cecum without difficulty. The ileocecal valve and appendiceal orifice were clearly identified. The prep was good. The scope was slowly withdrawn over the course of greater than 6 minutes. In the ascending colon a less than 1cm polyp was removed with the snare and retrieved for pathology. A diminuitive polyp was cauterized in the transverse colon. The sigmoid region showed moderate diverticular change with a few areas of inflammation. There was no difficulty navigating this area/no obvious stricture. The rectum was normal including on retroflexed view. The patient tolerated the procedure well and was stable to recovery. If the polyp is adenomatous he will need a colonoscopy in 5 years.
--- NOTE | 2020-05-06 08:38 | BOWEL_PTH ---
PATIENT: Demetrio Rivers LOC: AKI U#:[id number] AGE/SX: 44/M ROOM: RE05/06/[address]: Janice Petit MD : 1975 BED: DIS: 05/06/2020 SPEC #: [id number] RECD: 05/06/20 12:17 STATUS: MARCELA REQ #: [id number] LESLY: 05/06/20 08:[address]: Janice Petit DEPT: Surgical Specimen RECD BY: Mable Hilario ENTERED: 05/06/20 12:18 SP TYPE: Bowel OTHR DR: Elin Mckeon, PhD ELEVATED GUARD Tissues: 1 - BIOPSY BOWEL Procedures: GROSS AND MICRO LEVEL 4 Comments: [id number]
[2020-05-06 09:29] VITALS: BP 132/85; PULSE 71; RESP 17; TEMP 36; O2SAT 98
== END 2020-05-06 09:54 | disposition home or self-care (01) ==
PROVIDERS: PCP Nurse Practitioner; Visit Provider Surgery
PROC: 0DJD8ZZ Inspection of Lower Intestinal Tract, Via Natural or Artificial Opening Endoscopic (ICD-10-PCS; CPT 45378; principal; 2020-05-06 08:45)
DX: R10.9 Unspecified abdominal pain (principal); Z80.0 Family history of malignant neoplasm of digestive organs; Z87.19 Personal history of other diseases of the digestive system; D12.2 Benign neoplasm of ascending colon
CPT/HCPCS: 45388; 45385; 88305; J2704

== ENCOUNTER 2020-05-30 17:33 | Outpatient (REF) | payer OTHER, SELFPAY ==
[2020-05-30 21:08] LABS: Hemoglobin A1C 5.3 % (<5.7)
[2020-05-30 21:10] LABS: Calculated LDL 90 mg/dL (<100); Cholesterol 155 mg/dL (<200); HDL Cholesterol 41 mg/dL (40-60); Triglyceride 120 mg/dL (<150)
== END 2020-05-30 17:53 ==
LOC: LBN 17:33
PROVIDERS: PCP Nurse Practitioner; Visit Provider Nurse Practitioner
DX: Z13.1 Encounter for screening for diabetes mellitus (principal); Z13.6 Encounter for screening for cardiovascular disorders
CPT/HCPCS: 80061; 83036

== ENCOUNTER 2020-08-11 12:47 | Outpatient (CLI) | payer OTHER, SELFPAY ==
[2020-08-13 20:54] LABS: Patient Race White; SARS-CoV-2 RNA Undetected (Undetected); SARS-CoV-2 Specimen Source Nasal
== END 2020-08-11 13:07 ==
PROVIDERS: PCP Nurse Practitioner; Visit Provider Nurse Practitioner
DX: R05 Cough (principal)
CPT/HCPCS: U0003

== ENCOUNTER 2021-08-02 23:31 | Emergency (ER) | payer OTHER, SELFPAY ==
--- NOTE | 2021-08-02 23:30 | DI.CT_ITS ---
Exam(s) CT HEAD CERVICAL SPINE WO EXAM: CT HEAD CERVICAL SPINE WO CLINICAL HISTORY: fall, drunk, syncope. TECHNIQUE: Imaging Protocol: Axial computed tomography images with coronal and sagittal reformatted images were created and reviewed COMPARISON: No exams were available for comparison FINDINGS: BRAIN: There are no skull fractures nor fluid in the visualized paranasal sinuses. Density in both external auditory canals consistent with cerumen. There is no evidence of intracranial hemorrhage, mass effect, or shift of midline structures. There are no extra-axial fluid collections. The ventricles are not enlarged or shifted and there is no blo od within the ventricular system nor within the basal cisterns. CERVICAL SPINE: No evidence of acute fracture. Some disc space narrowing is noted at C5-6 and C6-7 levels. There is mild anterolisthesis of C4 upon C5 which is not associated with fracture or facet malalignme nt. This is on degenerative basis. There is no significant facet joint malalignment. No significant osseous lesions evident. IMPRESSION: No acute intracranial findings on this noninfused CT scan of the brain. RADIATION DOSE DELIVERED: 1,500.83mGy.cm Total DLP DATA REPOSITORY: All CT scans at this facility are submitted to the National Radiology Data Registry (NRDR) Dose Index Registry (DIR) with the [employer] (ACR). RADIATION OPTIMIZATION: All CT scans at this facility use at least one of these dose optimization te chniques: automated exposure control; mA and/or kV adjustment per patient size (includes targeted exa ms where dose is matched to clinical indication); or iterative reconstruction.
--- NOTE | 2021-08-02 23:30 | RT.EKG_ITS ---
APPROVED REPORT Exam: Resting ECG Reason for Exam: chest pain Patient Location: E HR:71 bpm ECG Measurements Heart Rate 71 AXIS IL 157 P 47 QRSd 100 QRS 11 QT 366 T 39 QTc 398 Conclusion Sinus rhythm...normal P axis, V-rate 60- 99 ST elev, probable normal early repol pattern...ST elevation, age<55 Physician: Sinus rhythm, rate 70, minimal less than a millimeter of elevation in V2, however it is no ntombstone with no reciprocal depressions. Likely normal early repolarization. No STEMI. No Q wave s.
--- NOTE | 2021-08-02 23:30 | DI.CT_ITS ---
Exam(s) CT CHEST PE CTA EXAM: CT CHEST PE CTA CLINICAL HISTORY: sob, fall, syncope x3. TECHNIQUE: Imaging Protocol: CT angiography of the chest was performed using pulmonary embolus cherelle col. Multi planar reconstructions were performed. CONTRAST MATERIAL: Intravenous: Omnipaque 350 Contrast volume: 100 cc COMPARISON: CT CT ABDOMEN PELVIS W from 06/29/2019 FINDINGS: CHEST: PULMONARY ARTERIES: There are no intraluminal filling defects to suggest acute pulmonary emboli. LUNGS: There are increased markings in both lungs which are probably exaggerated by respiratory motio n artifact here. There are no confluent infiltrates nor evidence of pulmonary infarction.. There are no pleural effusions.. No focal findings evident in the trachea and mainstem bronchi. MEDIASTINUM: There is slightly enlarged lymph nodes in the right hilum and subcarinal region.. There is no axillary adenopathy. Visualized thyroid unremarkable.Small moderate size hiatal hernia. CARDIAC: Heart size is upper normal. There is no pericardial effusion.Caliber of the thoracic aorta is within normal limits. There is no significant shift of the interventricular septum. PARTIALLY VISUALIZED UPPERMOST ABDOMEN: No obvious findings OSSEOUS: No significant osseous lesions.. IMPRESSION: 1. No evidence of acute pulmonary emboli. No evidence of pulmonary infarction.No pleural effusions. 2. Mild increased pulmonary markings which are probably exaggerated by motion artifact. No confluent infiltrates 3. There are slightly enlarged lymph nodes in the right hilum and subcarinal region. RADIATION DOSE DELIVERED: 592.28mGy.cm Total DLP DATA REPOSITORY: All CT scans at this facility are submitted to the National Radiology Data Registry (NRDR) Dose Index Registry (DIR) with the [employer] (ACR). RADIATION OPTIMIZATION: All CT scans at this facility use at least one of these dose optimization te chniques: automated exposure control; mA and/or kV adjustment per patient size (includes targeted exa ms where dose is matched to clinical indication); or iterative reconstruction.
[2021-08-02 23:35] VITALS: BP 170/120; PULSE 74; RESP 23; TEMP 36.8; O2SAT 95
--- NOTE | 2021-08-02 23:46 | W.ED.GENAD ---
Discharge Plan Disposition Patient Disposition: HOME Condition: Good Discharge Details Clinical Impression: Alcohol intoxication, Syncope Primary Care Provider: Elin Mckeon ED Provider: Jacobo Lipscomb Discharge Instructions Instructions: Syncope (ED), Alcohol Intoxication (ED) Additional Instructions: It would be best to decrease the amount of regular alcohol consumption. If you do drink alcohol please make sure that you get up slowly, and stay well-hydrated with other fluids. If you notice any worsening of your symptoms, or any new symptoms such as vomiting, diarrhea, fever, chills, shortness of breath, chest pain, numbness, weakness, or fainting , please return immediately to the emergency department for reevaluation. Please follow up with your primary care provider as soon as possible for reassessment and reevaluation. As always, it was a pleasure participating in your medical care today. Referrals: Elin Mckeon, EQUIPMENT MAINTENANCE ENGINEER [Primary Care Provider] - Discharge Data Discharge Date/Time-TO BE ENTERED AT DEPARTURE: 08/03/21 04:02 Medical Decision Making 45-year-old male with a past medical history of hypertension, gout, presents today for evaluation of syncope. Patient had a fair amount of alcohol this evening. He states that 3 times this evening he then subsequently syncopized. EMS brought the patient in for evaluation. Patient is unsure if he hit his head when he syncopized. He has no history of seizures, and per EMS there is no report of tonic-clonic movements. He does have family history of seizures though. Currently he admits to shortness of breath with mild difficulty breathing but no chest pain. He denies any nausea or vomiting. He denies any numbness tingling or weakness. He denies any visual changes. He denies any history of pulmonary embolism or cardiac disease. He does admit to marijuana use this evening but he specifically denies any meth or cocaine use. He denies any other modifying factors. Physical exam demonstrates a well-appearing but slightly intoxicated male. No focal neurologic deficits. Vital signs stable aside from mild hypertension. Differential is highest for dehydration with conjunction of alcohol consumption, however there are other concerning etiologies including PE or intercranial abnormality that may have brought about his symptoms. Symptoms appear inconsistent with seizures at this time, he has no tongue biting, no micturition or defecation. Patient does feel short of breath and does have some mild pleuritic restriction. PE is on the differential but less likely. We will evaluate for concerning etiologies, rehydrate, monitor closely and reassess. 1:40 AM Per virtual radiology CT scans have returned notably unremarkable, CT of the chest CTA demonstrate no abnormality, CT of the head shows no concerning acute intracranial findings, and CT of the neck demonstrates minimal 1 to 2 mm anterior subluxation of C3 on C4, the patient has no signs of central cord syndrome, midline neck pain, neurologic deficit. Patient does appear still mildly intoxicated. He certainly does seem more sober than before, however do not think that he is appropriate to go home alone or unaccompanied. We will continue to rehydrate, monitor closely. Symptoms no syncope at this time is likely secondary to dehydration and alcohol intoxication. Symptoms inconsistent with seizure. Cardiac monitoring here as well as cardiac work-up has shown no abnormality of concern. Laboratory work-up normal. Once the patient is clinically sober I do feel he will be stable for discharge with close outpatient follow-up. Additionally the patient also does note at this time that he is now able to recall the events. He remembers falling down in the syncope episode. He recalls all of the 3 syncopal events, thus I would suspect that it is more related to intoxication and less related to actual syncope. Symptoms appearing consistent with concerning cardiac etiology at this time clinically. 4 AM On reassessment the patient is doing very well. He appears notably sober. The patient is able to speak clearly. There is no demonstration of any slurring of speech. There is evidence of clear decision making capacity. Patient is able to ambulate well without any difficulty. There are no signs of ataxia or stumbling motions. Patient feels well and would like to go home. Work-up remains unremarkable and stable. I do recommend close follow-up with the patient's primary care provider out of an abundance of precaution for reassessment and continued monitoring on an outpatient basis. This was discussed the patient. He will be going home with a family member. I have extensively reviewed the treatment plan and discharge instructions with the patient. I have addressed all patient concerns at this time. The patient was made aware of what symptoms to monitor for that would warrant a return to the emergency department. Discussed the plan with the patient, they demonstrate verbal understanding and agreement with our assessment and plan at this time. The documentation in this chart was dictated using [employer] dictation software. Please excuse any dictation errors. EKG 23: 40 Sinus rhythm, rate 70, minimal less than a millimeter of elevation in V2, however it is nontombstone with no reciprocal depressions. Likely normal early repolarization. No STEMI. No Q waves. FINDINGS: Brain: Normal. No hemorrhage. Unremarkable white matter. No mass effect. Cerebral ventricles: No ventriculomegaly. Paranasal sinuses: Visualized sinuses are unremarkable. No fluid levels. Mastoid air cells: Visualized mastoid air cells are well aerated. Bones/joints: Unremarkable. No acute fracture. Soft tissues: Soft tissue swelling in high posterior parietal scalp. IMPRESSION: 1. No acute intracerebral findings. 2. Scalp soft tissue swelling. FINDINGS: Bones/joints: No acute fracture. 1-2 mm anterior subluxation of C3 on C4 Minimal, multi level hypertrophic endplate degenerative changes. Straightening of lordosis. Discs/Spinal canal/Neural foramina: No significant disc protrusion. No severe spinal canal stenosis. No significant neural foraminal narrowing. Lungs: Lung apices are normal. Soft tissues: Unremarkable. IMPRESSION: 1. No acute fracture. 2. Minimal anterior subluxation of C3 on C4. 3. Degenerative changes. 4. Straightening of lordosis. Thank you for allowing us to participate in the care of your patient. Dictated and Authenticated by: Travon Escobar DO 08/03/2021 1:45 AM Eastern Time ([place] & [place]) FINDINGS: Pulmonary arteries: Normal. No pulmonary emboli. Aorta: Unremarkable. No aortic aneurysm. No aortic dissection. Lungs: Unremarkable. No consolidation. No masses. Pleural spaces: Unremarkable. No pneumothorax. No pleural effusion. Heart: Unremarkable. No cardiomegaly. No pericardial effusion. Lymph nodes: Unremarkable. No enlarged lymph nodes. Diaphragm: Small hiatal hernia. Bones/joints: Unremarkable. No acute fracture. Soft tissues: Unremarkable. IMPRESSION: No acute findings. Thank you for allowing us to participate in the care of your patient. Dictated and Authenticated by: Niles Altman MD 08/03/2021 1:39 AM Eastern Time ([place] & [place]) HPI General Date/Time Provider Initiated Documentation: 08/02/21 23:46. HPI Narrative: 45-year-old male with a past medical history of hypertension, gout, presents today for evaluation of syncope. Patient had a fair amount of alcohol this evening. He states that 3 times this evening he then subsequently syncopized. EMS brought the patient in for evaluation. Patient is unsure if he hit his head when he syncopized. He has no history of seizures, and per EMS there is no report of tonic-clonic movements. He does have family history of seizures though. Currently he admits to shortness of breath with mild difficulty breathing but no chest pain. He denies any nausea or vomiting. He denies any numbness tingling or weakness. He denies any visual changes. He denies any history of pulmonary embolism or cardiac disease. He does admit to marijuana use this evening but he specifically denies any meth or cocaine use. He denies any other modifying factors. Related Data Allergies Allergy/AdvReac Type Severity Reaction Status Date / Time Sulfa (Sulfonamide Allergy Severe fatal Verified 08/02/21 23:43 Antibiotics) sulfamethoxazole Allergy Severe fatal Verified 08/02/21 23:43 [From Bactrim] trimethoprim [From Bactrim] Allergy Severe fatal Verified 08/02/21 23:43 General Stated Complaint: Dizzy/Sync [place]: 2 Review of Systems All systems reviewed & are unremarkable except as noted in HPI and below PFSH Medical History Gout HTN (hypertension) No significant past medical history Surgical History History of knee surgery R knee Family History Mother High cholesterol Father , 70 Alcohol abuse Diabetes Sister No problems noted. Sister No problems noted. Brother Cancer Brother No problems noted. Brother No problems noted. Brother No problems noted. Social History Smoking/Tobacco Use Status: Current every day Tobacco Type: cigarettes Quit status: has quit before Smoking risk assessment performed?: Yes Alcohol Intake: current Alcohol Intake frequency: 0-2 drinks per day Alcohol type: beer Drug use: Socially Substance use type: marijuana Caregiver/Support person: No Household members: other Details: roomate Housing: house Communication Needs: None Pets and animals: Yes Pets and animals: dog(s) Sexually active: Yes Do you think of yourself as: straight/heterosexual Current gender identity: male How often do you talk on the phone with friends or family?: decline to answer How often do you get together with friends or relatives?: decline to answer Do you belong to any clubs or organized social groups?: no Panel score (0-1 are the most socially isolated patients): 0 Seatbelt use: sometimes Helmet use: Yes Helmet use: always Drive intox or ride w/intox warehouse associate driver: No Do you feel safe at home: Yes Do you feel safe in your relationship?: Yes Exam Narrative Exam Narrative: 1.Const: Well-nourished, Well-developed, appearing stated age 2.Eyes: PERRL, no conjunctival injection, and symmetrical lids. 3.ENT: Atraumatic external nose and ears. Moist MM. Neck: Symmetric, trachea midline, No thyromegaly. There is no evidence of raccoon eyes, arellano sign, CSF rhinorrhea, mastoid tenderness, cranial crepitus, hemotympanum, exophthalmos, or hyphema. Patient demonstrates intact dentition with no signs of tooth avulsion or fracture, no signs of jaw deformity, no evidence of a LeFort's fracture, with an intact palate, nose and orbital region. There is no evidence of a nasal septal hematoma. No proptosis. Jaw closes symmetrically. Airway is clear. 4.CVS: +S1/S2, No murmurs or gallops. Peripheral pulses 2+ and equal in all extremities. Brisk capillary refill in all extremities. 5.RESP: Unlabored respiratory effort. Clear to auscultation bilaterally. No wheezes rales or rhonchi 6.GI: Soft, Nontender/Nondistended, No hepatosplenomegaly. No guarding or rebound. 7.MSK: Normocephalic/Atraumatic, Extremities w/o deformity or ttp No cyanosis or clubbing, Normal movement of all extremities, no midline cervical thoracic or lumbar spine tenderness. 8.Skin: Warm, Dry. No rashes or lesions. 9.Neuro: sludge control attendant II-XII grossly intact. Sensation grossly intact, no focal neurologic deficits. All 6 cardinal planes of vision are fully intact. No evidence of rotatory or vertical nystagmus. The patient demonstrated a normal qlrsvc-mogu-avgmgu, good dexterity. There was no evidence of dysdiadochokinesia. Patient was able to ambulate without difficulty. There was no wide-based gait. Romberg testing was normal. Estb-cu-wkdf testing was normal. Sensation was intact bilaterally as well as muscle strength bilaterally for all extremities. Patient was able to verbalize butter cup with no slurring, or miss pronunciation. However in spite of all of this he does appear very mildly intoxicated. 10.Psych: (AAO) x3. Appropriate mood and affect Course Vital Signs Vital signs: Vital Signs Temperature 36.8 C 08/02/21 23:35 Pulse 74 08/02/21 23:35 Respiratory Rate 23 08/02/21 23:35 Blood Pressure 170/120 H 08/02/21 23:35 Pulse Oximetry 95 08/02/21 23:35 Temperature 36.8 C 08/02/21 23:35 Temperature Source Temporal Artery Scan 08/02/21 23:35 Pulse 74 08/02/21 23:35 Respiratory Rate 23 08/02/21 23:35 Blood Pressure 170/120 H 08/02/21 23:35 Blood Pressure Position Supine 08/02/21 23:35 Pulse Oximetry 95 08/02/21 23:35 Oxygen Delivery Method Room Air 08/02/21 23:35 Oxygen Flow Rate 0 08/02/21 23:35 Pain Level 0 08/02/21 23:35 Comment 08/02/21 23:35
[2021-08-02] MEDS: Normal Saline 1,000 ML 1000 ML IV (23:55)
[2021-08-02 23:57] LABS: Abs Immature Grans 0.04 10^3/uL (0.0-0.06); Absolute Basophil Count 0.04 10^3/uL (0.0-0.2); Absolute Eosinophil Count 0.24 10^3/uL (0.0-0.7); Absolute Lymphocyte Count 4.25 10^3/uL (1.2-3.4); Absolute Monocyte Count 0.45 10^3/uL (0.1-0.8); Absolute Neutrophil Count 3.23 10^3/uL (1.2-6.7); Basophils % 0.5; Eosinophils % 2.9; HCT 47.1 % (40.0-50.0); HGB 16.1 g/dL (13.5-17.5); Immature Grans % 0.5; Lymphocytes % 51.5; MCH 31.1 pg (27.0-33.0); MCHC 34.2 % (32.0-36.0); MCV 90.9 fL (80-95); MPV 9.2 fL (8.0-11.0); Monocytes % 5.5; Neutrophils % 39.1; Nucleated RBC 0 %; Platelet Count 356 10^3/uL (130-400); RBC 5.18 10^6/uL (4.36-5.78); RDW 13.1 % (11.8-14.1); RDW-SD 44.2 fL; WBC 8.25 10^3/uL (4.4-10.8)
[2021-08-03] VITALS (15 sets, daily range): BP systolic 85–129; BP diastolic 44–72; PULSE 72–84; RESP 24–33; O2SAT 86–95
[2021-08-03 00:21] LABS: Albumin 4.1 g/dL (3.4-5.0); Alkaline Phosphatase 62 U/L (46-116); Anion Gap 13.4 mmol/L (3-11); BUN 12 mg/dL (7-18); Bilirubin, Total 0.6 mg/dL (0.2-1.0); CO2 23.6 mmol/L (21.0-32.0); Calcium 8.6 mg/dL (8.5-10.1); Chloride 107 mmol/L (98-107); Glucose 101 mg/dL (74-106); Sodium 144 mmol/L (136-145); Total Protein 8.4 g/dL (6.4-8.2)
[2021-08-03 00:22] LABS: ALT 35 U/L (16-63); AST 22 U/L (15-37); Troponin I < 0.05 ng/mL (<0.06)
[2021-08-03 00:23] LABS: ETHANOL BLOOD 358.6 mg/dL (<10); Magnesium 2.3 mg/dL (1.8-2.4); PHOSPHORUS 3.6 mg/dL (2.6-4.7)
[2021-08-03] MEDS: Omnipaque 350 MG/ML 100 ML BTL IJ (00:42)
[2021-08-03] MEDS: Normal Saline - Diluent 50 ML VIAL IV (00:42)
[2021-08-03] MEDS: Normal Saline Flush 10 ML SYR IVP (00:43)
--- NOTE | 2021-08-03 01:39 | DI.VRAD_ITS ---
PROCEDURE INFORMATION: Exam: CTA Chest With Contrast Exam date and time: 08/02/2021 11:47 PM Age: 45 years old Clinical indication: Injury or trauma; Shortness of breath; Blunt trauma (contusions or hematomas); Injury date: 08/02/21; Injury details: SOB, fall, syncope x3 TECHNIQUE: Imaging protocol: Computed tomographic angiography of the chest with contrast. 3D rendering (Not supervised by radiologist): MIP and/or 3D reconstructed images were created by the technologist. Radiation optimization: All CT scans at this facility use at least one of these dose optimization techniques: automated exposure control; mA and/or kV adjustment per patient size (includes targeted exams where dose is matched to clinical indication); or iterative reconstruction. Contrast material: OMNIPAQUE 350; Contrast volume: 100 ml; Contrast route: INTRAVENOUS (IV); COMPARISON: CT HEAD CERVICAL SPINE WO 08/03/2021 12:45 AM FINDINGS: Pulmonary arteries: Normal. No pulmonary emboli. Aorta: Unremarkable. No aortic aneurysm. No aortic dissection. Lungs: Unremarkable. No consolidation. No masses. Pleural spaces: Unremarkable. No pneumothorax. No pleural effusion. Heart: Unremarkable. No cardiomegaly. No pericardial effusion. Lymph nodes: Unremarkable. No enlarged lymph nodes. Diaphragm: Small hiatal hernia. Bones/joints: Unremarkable. No acute fracture. Soft tissues: Unremarkable. IMPRESSION: No acute findings. Dictated and Authenticated by: Niles Altman MD. Ordering:BRIDGETTE Centeno MD
--- NOTE | 2021-08-03 01:45 | DI.VRAD_ITS ---
PROCEDURE INFORMATION: Exam: CT Head Without Contrast Exam date and time: 08/02/2021 11:47 PM Age: 45 years old Clinical indication: Injury or trauma; Blunt trauma (contusions or hematomas); With loss of consciousness; Not specified; Injury date: 08/02/21; Injury details: Fall, drunk, syncope TECHNIQUE: Imaging protocol: Computed tomography of the head without contrast. Radiation optimization: All CT scans at this facility use at least one of these dose optimization techniques: automated exposure control; mA and/or kV adjustment per patient size (includes targeted exams where dose is matched to clinical indication); or iterative reconstruction. COMPARISON: No relevant prior studies available. FINDINGS: Brain: Normal. No hemorrhage. Unremarkable white matter. No mass effect. Cerebral ventricles: No ventriculomegaly. Paranasal sinuses: Visualized sinuses are unremarkable. No fluid levels. Mastoid air cells: Visualized mastoid air cells are well aerated. Bones/joints: Unremarkable. No acute fracture. Soft tissues: Soft tissue swelling in high posterior parietal scalp. IMPRESSION: 1. No acute intracerebral findings. 2. Scalp soft tissue swelling. PROCEDURE INFORMATION: Exam: CT Cervical Spine Without Contrast Exam date and time: 08/02/2021 11:47 PM Age: 45 years old Clinical indication: Injury or trauma; Blunt trauma (contusions or hematomas); With loss of consciousness; Not specified; Injury date: 08/02/21; Injury details: Fall, drunk, syncope TECHNIQUE: Imaging protocol: Computed tomography images of the cervical spine without contrast. Radiation optimization: All CT scans at this facility use at least one of these dose optimization techniques: automated exposure control; mA and/or kV adjustment per patient size (includes targeted exams where dose is matched to clinical indication); or iterative reconstruction. COMPARISON: No relevant prior studies available. FINDINGS: Bones/joints: No acute fracture. 1-2 mm anterior subluxation of C3 on C4 Minimal, multi level hypertrophic endplate degenerative changes. Straightening of lordosis. Discs/Spinal canal/Neural foramina: No significant disc protrusion. No severe spinal canal stenosis. No significant neural foraminal narrowing. Lungs: Lung apices are normal. Soft tissues: Unremarkable. IMPRESSION: 1. No acute fracture. 2. Minimal anterior subluxation of C3 on C4. 3. Degenerative changes. 4. Straightening of lordosis. Dictated and Authenticated by: Travon Escobar MD. Ordering:BRIDGETTE Centeno MD
[2021-08-03 02:32] LABS: *AMPHETAMINES SCREEN URINE Negative (Negative); *BARBITURATES SCREEN URINE Negative (Negative); *BENZODIAZEPINES SCREEN URINE Negative (Negative); Cannabinoids THC Positive (Negative); Cocaine Screen,Urine Negative (Negative); METHADONE URINE SCREEN Negative (Negative); OPIATES URINE SCREEN Negative (Negative); Tricyclic Antidepressants Negative (Negative)
--- NOTE | 2021-08-03 03:06 | SUR.PHASEI ---
PT O2 SAT DCRESASED TO 87% PT PLACED ON 2L BNC
== END 2021-08-03 04:02 | disposition home or self-care (01) ==
LOC: ER 08-03 04:03
PROVIDERS: Emergency Provider Student in an Organized Health Care Education/Training Program; PCP Nurse Practitioner
DX: R55 Syncope and collapse (principal); F10.129 Alcohol abuse with intoxication, unspecified; R06.02 Shortness of breath; Y90.8 Blood alcohol level of 240 mg/100 ml or more; R07.9 Chest pain, unspecified
CPT/HCPCS: 36415; 36416; 71275; 80053; 80307; 82962; 93005; 96360; 99285; 70450; 72125; 80320; 83735; 84100; 84484; 85025; 93010; 99284; J3490

== ENCOUNTER 2021-11-18 09:07 | Emergency (ER) | payer BC, SELFPAY ==
--- NOTE | 2021-11-18 09:15 | DI.RAD_ITS ---
Exam(s) XR KNEE RT 3V AP,LAT,LUCIO EXAM: XR KNEE RT 3V AP,LAT,LUCIO CLINICAL HISTORY: pain TECHNIQUE: COMPARISON: CR RIGHT KNEE 3 VIEWS from 03/20/2009 FINDINGS: Four views were obtained. There is a large knee joint effusion or hemarthrosis. There are moderate degenerative changes of the knee. No gross fracture identified on the films obtained. IMPRESSION: RADIATION DOSE DELIVERED: Total DLP
[2021-11-18 09:18] VITALS: BP 167/125; PULSE 90; RESP 18; TEMP 37.1; O2SAT 98
--- NOTE | 2021-11-18 09:26 | W.ED.GENAD ---
Discharge Plan Disposition Patient Disposition: HOME Condition: Stable Discharge Details Clinical Impression: Arthritis of right knee, Elevated blood pressure reading Primary Care Provider: Elin Mckeon ED Provider: Efrain Hsieh Home Meds and New Rx's Prescriptions: No Action meloxicam 15 mg tablet 15 mg PO DAILY Qty: 30 3RF lisinopril 20 mg tablet 20 mg PO DAILY Qty: 30 0RF Discharge Instructions Instructions: Oxycodone, Rapid Release (By mouth), Osteoarthritis (ED), Hypertension (ED) Additional Instructions: Please take meloxicam as prescribed. Do not take other NSAIDs like Advil or ibuprofen while you are taking meloxicam. It is safe you to combine meloxicam and Tylenol. Please take acetaminophen (tylenol) - 650mg every 6 hours by mouth as needed for pain. If you have unbearable pain that is refractory to Tylenol and meloxicam, take oxycodone according to label. Please use hinged knee brace and crutches. You may weight-bear as tolerated. Please follow-up with orthopedics. Call to schedule an appointment. Your blood pressure was elevated today and noted to be 167/125. Be sure to discuss this with your doctor. Take your medications as prescribed and monitor your blood pressure daily. If blood pressure remains elevated, blood pressure medication dosing will need to be adjusted by your primary care physician. Please contact your primary care physician to arrange follow-up. Return to the ER immediately for any worsening or new concerning symptoms. Stand Alone Forms: Work Release Referrals: [facility] [Provider Group] Elin Mckeon NP [Primary Care Provider] - Discharge Data Discharge Date/Time-TO BE ENTERED AT DEPARTURE: 11/18/21 11:29 Medical Decision Making 45-year-old male with history of remote meniscal surgery right knee, chronic intermittent pain in the right knee, here with exacerbation of right knee pain. No recent injury. Patient has mild swelling on exam. Effusion is not significant. No concerning warmth or erythema. Patient does have limited range of motion of the knee and note some crepitus with ambulation. I suspect patient has degenerative changes and arthritis of his knee. Patient has not had diagnostic imaging here at [facility] and would like to seek orthopedic evaluation. I will obtain x-ray of the knee to assess for bony abnormality. X-ray of the knee was reviewed and interpreted by radiologist: No fracture, effusion present, degenerative changes present. Toradol 30 mg IM was administered for pain and inflammation. Results were discussed with the patient. Patient is aware of effusion. We discussed arthrocentesis which he has had in the past and he provided informed refusal at this time noting swelling has been much worse in the past and the would prefer to trial anti-inflammatories and rest. Plan will be to continue meloxicam as patient notes this is helped in the past with exacerbations. He will continue to use hinged knee brace and crutches. He was instructed to call orthopedics to arrange follow-up. Patient verbalized understanding of the importance of timely follow-up with orthopedic and that he should return immediately should any worsening or new concerning symptoms. HPI General Mode of arrival: ambulatory. Date/Time Provider Initiated Documentation: 11/18/21 09:25. Limitations to Documentation: no limitations. Information obtained by: patient. HPI Narrative: 45-year-old male presents with chief complaint of right knee pain. Patient notes chronic intermittent exacerbations of right knee pain after meniscal surgery remotely approximately 10 years ago in [place]. Patient states that remotely he had significant knee effusions and had to have arthrocentesis performed. He states swelling has not so severe today. Patient notes pain has been persistent over the past 2 weeks. He does not recall any specific recent injury. He attributes exacerbation to cold weather. He states he has been using ibuprofen, last dose was taken yesterday, and using hinged knee brace which typically helps with exacerbations. Today he states pain was severe and he is looking for referral to orthopedic. Patient denies associated rash or fever. No other joint pain. Related Data Home Medications Medication Instructions Recorded Confirmed meloxicam 15 mg tablet 15 mg PO DAILY #30 tab 11/25/21 12/03/21 lisinopril 20 mg tablet 20 mg PO DAILY #30 tab 12/03/21 12/03/21 Previous Rx's Medication Instructions Recorded meloxicam 15 mg tablet 15 mg PO DAILY #30 tab 11/25/21 lisinopril 20 mg tablet 20 mg PO DAILY #30 tab 12/03/21 Allergies Allergy/AdvReac Type Severity Reaction Status Date / Time Sulfa (Sulfonamide Allergy Severe fatal Verified 12/03/21 14:53 Antibiotics) sulfamethoxazole Allergy Severe fatal Verified 12/03/21 14:53 [From Bactrim] trimethoprim [From Bactrim] Allergy Severe fatal Verified 12/03/21 14:53 General Stated Complaint: Orthopedic [place]: 4 Review of Systems Musculoskeletal Musculoskeletal: Reports as per HPI and Denies numbness Integumentary/Breasts Skin/Breast: Denies rash Neurologic Neurologic: Denies numbness PFSH All Active Problems (Updated 12/03/21 @ 14:55 by Elin Mckeon NP) Arthritis of right knee (Acute) Lipoma (Acute) Obesity (Chronic) Osteoarthritis (Chronic) HTN (hypertension) (Acute) Medical History (Updated 12/03/21 @ 14:55 by Elin Mckeon NP) Alcohol intoxication Gout No significant past medical history Syncope Tubular adenoma of colon (~04/2020) Surgical History History of knee surgery R knee Family History Mother High cholesterol Father , 70 Alcohol abuse Diabetes Sister No problems noted. Sister No problems noted. Brother Cancer Brother No problems noted. Brother No problems noted. Brother No problems noted. Social History Smoking/Tobacco Use Status: Current every day Tobacco Type: cigarettes Quit status: has quit before Smoking risk assessment performed?: Yes Alcohol Intake: current Alcohol Intake frequency: 0-2 drinks per day Alcohol type: beer Drug use: Socially Substance use type: marijuana Caregiver/Support person: No Household members: other Details: roomate Housing: house Communication Needs: None Pets and animals: Yes Pets and animals: dog(s) Sexually active: Yes Do you think of yourself as: straight/heterosexual Current gender identity: male How often do you talk on the phone with friends or family?: decline to answer How often do you get together with friends or relatives?: decline to answer Do you belong to any clubs or organized social groups?: no Panel score (0-1 are the most socially isolated patients): 0 Seatbelt use: sometimes Helmet use: Yes Helmet use: always Drive intox or ride w/intox waste collection driver: No Do you feel safe at home: Yes Do you feel safe in your relationship?: Yes Exam Const General: cooperative and healthy appearing Nutritional Appearance: average body habitus Orientation: alert and awake Cardio Rate: regular rate Rhythm: regular rhythm Neuro Other: Distal right lower extremity sensation and motor intact Extrem Right lower extremity: knee Details: swelling, abnormal ROM Details: pain with active ROM during Details: in flexion and other (No erythema); Negative for no ecchymosis and no unusual warmth and lower leg Details: Negative for no erythema and no tenderness Course Vital Signs Vital signs: Vital Signs Temperature 37.1 C 11/18/21 09:18 Pulse 90 11/18/21 09:18 Respiratory Rate 18 11/18/21 09:18 Blood Pressure 167/125 H 11/18/21 09:18 Pulse Oximetry 98 11/18/21 09:18 Temperature 37.1 C 11/18/21 09:18 Temperature Source Temporal Artery Scan 11/18/21 09:18 Pulse 90 11/18/21 09:18 Respiratory Rate 18 11/18/21 09:18 Blood Pressure 167/125 H 11/18/21 09:18 Blood Pressure Position Supine 11/18/21 09:18 Pulse Oximetry 98 11/18/21 09:18 Oxygen Delivery Method Room Air 11/18/21 09:18 Oxygen Flow Rate 0 11/18/21 09:18 Pain Level 10 11/18/21 09:18
[2021-11-18 09:33] VITALS: BP 160/105; PULSE 86; O2SAT 98
[2021-11-18] MEDS: Ketorolac 30 MG/ML VIAL IM (09:34)
[2021-11-18 09:45] VITALS: BP 162/97; PULSE 88; O2SAT 97
[2021-11-18 10:00] VITALS: BP 165/99; PULSE 87; O2SAT 96
== END 2021-11-18 11:29 | disposition home or self-care (01) ==
LOC: ER 09:37
PROVIDERS: Emergency Provider Student in an Organized Health Care Education/Training Program; PCP Nurse Practitioner
DX: M17.11 Unilateral primary osteoarthritis, right knee (principal); R03.0 Elevated blood-pressure reading, without diagnosis of hypertension
CPT/HCPCS: 73562; 96372; 99284; 99283; J1885

== ENCOUNTER 2021-11-25 14:16 | Outpatient (CLI) | payer SELFPAY ==
--- NOTE | 2021-11-25 13:30 | DI.RAD_ITS ---
Exam(s) XR KNEE RT 3V AP,LAT,LUCIO EXAM: XR KNEE RT 3V AP,LAT,LUCIO CLINICAL HISTORY: pain TECHNIQUE: COMPARISON: CR XR KNEE RT 3V AP,LAT,LUCIO from 11/18/2021 FINDINGS: Three views were obtained. There is moderate narrowing of the cartilaginous joint spaces of all 3 sol ints of the knee. There are moderate marginal osteophytes at multiple sites, most marked involving t he medial tibiofemoral joint. There appears to be slight medial subluxation of the femur on the tibi a. Superior patellar enthesophyte is noted. There is a probable small joint effusion. IMPRESSION: Degenerative changes as described above. RADIATION DOSE DELIVERED: Total DLP
== END 2021-11-25 14:17 | disposition home or self-care (01) ==
LOC: DIORS 14:17
PROVIDERS: PCP Nurse Practitioner; Visit Provider Physician Assistant Surgical
DX: M25.561 Pain in right knee (principal); M25.461 Effusion, right knee; M17.11 Unilateral primary osteoarthritis, right knee
CPT/HCPCS: 73562

== ENCOUNTER 2021-12-30 03:09 | Outpatient (CLI) | payer BC, SELFPAY | END 2021-12-30 03:10 | disposition home or self-care (01) | LOC: LBO 03:09 | PROVIDERS: PCP Nurse Practitioner; Visit Provider Family Medicine ==

== ENCOUNTER 2022-04-15 13:55 | Outpatient (REF) | payer BC, SELFPAY | END 2022-04-15 13:56 | disposition home or self-care (01) | LOC: LBN 13:55 | PROVIDERS: PCP Nurse Practitioner; Visit Provider Nurse Practitioner Family ==

== ENCOUNTER 2022-04-15 13:56 | Outpatient (REF) | payer BC, SELFPAY | END 2022-04-15 13:57 | disposition home or self-care (01) | LOC: LBN 13:56 | PROVIDERS: PCP Nurse Practitioner; Visit Provider Nurse Practitioner Family ==

== ENCOUNTER 2022-04-15 13:58 | Outpatient (REF) | payer BC, SELFPAY | END 2022-04-15 13:59 | disposition home or self-care (01) | LOC: LBN 13:58 | PROVIDERS: PCP Nurse Practitioner; Visit Provider Nurse Practitioner Family ==

== ENCOUNTER 2022-04-15 13:59 | Outpatient (REF) | payer BC, SELFPAY | END 2022-04-15 14:00 | disposition home or self-care (01) | LOC: LBN 13:59 | PROVIDERS: PCP Nurse Practitioner; Visit Provider Nurse Practitioner Family ==

== ENCOUNTER 2022-04-15 14:00 | Outpatient (REF) | payer BC, SELFPAY ==
[2022-04-15 20:46] LABS: Bilirubin Negative (Negative); Blood Negative (Negative); Clarity Clear (Clear); Glucose Negative (Negative); Ketones Negative (Negative); Leukocyte Esterase Negative (Negative); Nitrite Negative (Negative); Urobilinogen 0.2 EU/dL (Up TO 0.2)
[2022-04-15 21:08] LABS: ALT 64 U/L (16-63); AST 27 U/L (15-37); Albumin 4.4 g/dL (3.4-5.0); Alkaline Phosphatase 76 U/L (46-116); Amylase 50 U/L (25-115); Anion Gap 10.5 mmol/L (3-11); BUN 12 mg/dL (7-18); Bilirubin, Total 1.5 mg/dL (0.2-1.0); CO2 24.5 mmol/L (21.0-32.0); CREATININE 1.2 mg/dL (0.70-1.30); Calcium 9.7 mg/dL (8.5-10.1); Chloride 100 mmol/L (98-107); Glucose 91 mg/dL (74-106); Lipase 77 U/L (73-393); Potassium 4.5 mmol/L (3.5-5.1); Sodium 135 mmol/L (136-145); Total Protein 8.5 g/dL (6.4-8.2)
== END 2022-04-15 14:01 | disposition home or self-care (01) ==
LOC: LBN 14:00
PROVIDERS: Family Medicine; PCP Nurse Practitioner; Visit Provider Nurse Practitioner Family
DX: R10.9 Unspecified abdominal pain (principal); R11.2 Nausea with vomiting, unspecified; K57.92 Diverticulitis of intestine, part unspecified, without perforation or abscess without bleeding; R19.8 Other specified symptoms and signs involving the digestive system and abdomen; N39.0 Urinary tract infection, site not specified
CPT/HCPCS: 80053; 83690; 81003; 82150; 85025

== ENCOUNTER 2023-11-25 18:12 | Emergency (ER) | payer OTHER, SELFPAY ==
[2023-11-25] VITALS (21 sets, daily range): BP systolic 199–229; BP diastolic 113–134; PULSE 73–114; RESP 13–28; TEMP 36.8; O2SAT 93–99
--- NOTE | 2023-11-25 18:15 | RT.EKG_ITS ---
APPROVED REPORT Exam: Resting ECG Reason for Exam: Dyspnea Patient Location: E HR:100 bpm ECG Measurements Heart Rate 100 AXIS MI 174 P 30 QRSd 97 QRS 13 QT 332 T 40 QTc 430 Conclusion Sinus tachycardia...rate> 99 Physician: no stemi
--- NOTE | 2023-11-25 18:30 | DI.CT_ITS ---
Exam(s) CT CHEST PE ABD PELVIS W EXAM: CT CHEST PE ABD PELVIS W CLINICAL HISTORY: Chest pain, nausea. TECHNIQUE: Imaging Protocol: Axial CT angiography was performed with multi-slice acquisition and mu lti-planar and/or 3D reconstructions. CONTRAST MATERIAL: Intravenous: Omnipaque 350contrast volume:100 mL COMPARISON: CT CT CHEST PE CTA from 08/03/2021 FINDINGS: CHEST: Tracheobronchial tree: Patent where visualized. Pulmonary parenchyma: There are dependent atelectatic changes seen in the lung bases. No focal conso lidating infiltrates are seen. No architectural distortion. Pulmonary Arteries: No evidence of filling defect to suggest pulmonary emboli. Mediastinum and Katie: No dominant adenopathy or fluid collection. The esophagus is unremarkable. Ther e is a small hiatal hernia. Visualized thyroid gland: Unremarkable. Pleura: No effusion or pneumothorax. Heart: The heart is not dilated. No coronary artery calcifications are seen. No pericardial effusion. Aorta: Thoracic aorta non-dilated. No evidence of dissection. Bones: Within normal limits for the patient's age. Soft tissues: Unremarkable. ABDOMEN: Liver: Normal density. No measurable mass. Portal, Superior Mesenteric, and Splenic Veins: Unremarkable. Gallbladder and Biliary Tract: No radiodense calculus or dilation. Pancreas: Normal density, no abnormal calcifications or inflammatory process. Spleen: Normal. Adrenals: No masses seen. Kidneys: Normal size, contour and axis. No radiodense stones or obstructive uropathy. No masses seen. Note is made of a retroaortic left renal vein. Abdominal Aorta: Abdominal portion non-dilated. There is mild atherosclerotic calcification present. Bowel: There is diverticulosis of the colon no evidence of acute diverticulitis. No evidence of obst ruction. There is mild bowel wall thickening in proximal small bowel loops in the left upper quadran t. This may represent an infectious or inflammatory enteritis. Appendix is unremarkable. Peritoneal Cavity: No ascites, collection or mesenteric inflammatory response. No free air. Lymph Nodes: Within normal limits. Bones: Within normal limits for the patient's age. Soft Tissues: There is a small fat containing umbilical hernia. There are bilateral fat containing i nguinal hernias. PELVIS: Bladder: Symmetric distention, no gross wall thickening. Reproductive Organs: Unremarkable as visualized. Lymph Nodes: Within normal limits. Bones: Within normal limits. IMPRESSION: 1. No evidence pulmonary embolism, thoracic aortic dissection or aneurysm. 2. Mild atelectasis in the lung bases. 3. Mild wall thickening in loops of small bowel in the left upper quadrant of the abdomen which may r epresent a nonspecific infectious or inflammatory enteritis. RADIATION DOSE DELIVERED: Total DLP DATA REPOSITORY: All CT scans at this facility are submitted to the National Radiology Data Registry (NRDR) Dose Index Registry (DIR) with the [employer] (ACR). RADIATION OPTIMIZATION: All CT scans at this facility use at least one of these dose optimization te chniques: automated exposure control; mA and/or kV adjustment per patient size (includes targeted exa ms where dose is matched to clinical indication); or iterative reconstruction.
[2023-11-25 18:35] LABS: Abs Immature Grans 0.03 10^3/uL (0.0-0.06); Absolute Basophil Count 0.05 10^3/uL (0.0-0.2); Absolute Eosinophil Count 0.07 10^3/uL (0.0-0.7); Absolute Lymphocyte Count 2.38 10^3/uL (1.2-3.4); Absolute Monocyte Count 0.74 10^3/uL (0.1-0.8); Absolute Neutrophil Count 6.93 10^3/uL (1.2-6.7); Basophils % 0.5; Eosinophils % 0.7; HCT 43.3 % (40.0-50.0); Immature Grans % 0.3; Lymphocytes % 23.3; MCH 30.9 pg (27.0-33.0); MCHC 34.6 % (32.0-36.0); MCV 89 fL (80-95); MPV 9.3 fL (8.0-11.0); Monocytes % 7.3; Neutrophils % 67.9; Platelet Count 284 10^3/uL (130-400); RBC 4.86 10^6/uL (4.36-5.78); RDW 12.9 % (11.8-14.1); RDW-SD 41.5 fL
--- NOTE | 2023-11-25 18:35 | W.ED.GENAD ---
Discharge Plan Disposition Patient Disposition: Home Condition: Improving Discharge Details Clinical Impression: Myalgia, Hypertension Primary Care Provider: Rebeca,Local ED Provider: Moriah Escobar Home Meds and New Rx's Prescriptions: No Action ondansetron 4 mg tablet,disintegrating 4 mg PO Q8H PRN (Reason: nausea and vomiting) Qty: 7 0RF Rx Instructions: Take 1 tab every 8 hours as needed for nausea meloxicam 15 mg tablet 15 mg PO DAILY Qty: 90 3RF lisinopril 40 mg tablet 40 mg PO DAILY Qty: 90 4RF Discharge Instructions Instructions: Musculoskeletal Pain (ED), Hypertension (ED) Additional Instructions: No evidence of acute abnormality on the chest or abdominal CT. Labs are largely within normal limits. Your blood pressure today is quite high, please take your blood pressure medication as directed and follow-up closely with your primary care provider to discuss adjustment in your medications if needed. Follow up with primary care provider in 3-5 days. Return to ED sooner if any worsening or concerns. Increase oral fluids. Please take Tylenol or Ibuprofen with food every 4-6 hours as needed for pain and swelling. Referrals: [facility] [Provider Group] [facility] [Provider Group] [facility] [Provider Group] [facility] General Mode of arrival: ambulatory. Date/Time Provider Initiated Documentation: 11/25/23 18:20. Limitations to Documentation: no limitations. Information obtained by: patient, RN notes reviewed and old records reviewed. HPI Narrative: 47 year old male presents to the ED with cc of myalgias, left arm pain, neck pain and nausea which began suddenly this afternoon. Denies vomiting or diarrhea, he presents hypertensive, and tachycardic. Denies drugs or alcohol, endorses marijuana. No alcohol in last two days. Denies any recent injuries. Related Data Home Medications Medication Instructions Recorded Confirmed lisinopril 40 mg tablet 40 mg PO DAILY #90 tabs 01/07/22 04/22/22 meloxicam 15 mg tablet 15 mg PO DAILY #90 tabs 04/15/22 04/22/22 ondansetron 4 mg disintegrating 4 mg PO Q8H PRN nausea and 04/15/22 04/22/22 tablet vomiting #7 tabs Previous Rx's Medication Instructions Recorded lisinopril 40 mg tablet 40 mg PO DAILY #90 tabs 04/21/22 meloxicam 15 mg tablet 15 mg PO DAILY #90 tabs 04/15/22 ondansetron 4 mg disintegrating 4 mg PO Q8H PRN nausea and 04/15/22 tablet vomiting #7 tabs Allergies Allergy/AdvReac Type Severity Reaction Status Date / Time Sulfa (Sulfonamide Allergy Severe fatal Verified 04/22/22 08:51 Antibiotics) sulfamethoxazole Allergy Severe fatal Verified 04/22/22 08:51 [From Bactrim] trimethoprim [From Bactrim] Allergy Severe fatal Verified 04/22/22 08:51 General Stated Complaint: [facility] [place]: 3 Review of Systems All systems reviewed & are unremarkable except as noted in HPI and below Cardiovascular Cardiovascular: Reports rapid heart rate and Reports dyspnea Respiratory Respiratory: Reports dyspnea Gastrointestinal Gastrointestinal: Reports nausea Musculoskeletal Musculoskeletal: Reports as per HPI and Reports myalgias Exam Narrative Exam Narrative: Constitutional: Alert and oriented x3. Appears stated age. Normal body habitus. Head: Normocephalic, no trauma. Eyes: Pupils PERRL, Red reflex noted, EOM's intact. Eyelids symmetrical without lesions, discharge, or swelling. ENT: Bilateral TM's WNL, External ear normal to inspection, no mastoid TTP, swelling, or erythema, Nasal turbinates WNL, no nasal discharge. Normal dentition, Posterior pharynx WNL, no exudate. Chest: RRR, Normal S1, S2, distal pulses intact. Resp: Lungs clear to auscultation bilaterally, no wheezes, rales, or rhonchi. Abdomen: Soft, non-distended, Normoactive bowel sounds all 4 quads. Musculoskeletal: Normal gait, 5/5 strength to all four extremities. Skin: No suspicious rashes or lesions. Capillary refill less than 2 sec. Neurologic: Cranial nerves II-XII intact. Alert and oriented x 3. Motor: No deficits noted. Sensory: Intact bilaterally all 4 extremities. Reflexes: DTR's intact bilaterally.. Hematologic/Lymphatic: No ecchymosis, no lymphadenopathy. Course Vital Signs Vital signs: Vital Signs Temperature 36.8 C 11/25/23 18:15 Pulse 114 H 11/25/23 18:15 Respiratory Rate 16 11/25/23 18:15 Blood Pressure 202/131 H 11/25/23 18:15 Pulse Oximetry 97 11/25/23 18:15 Temperature 36.8 C 11/25/23 18:15 Temperature Source Temporal Artery Scan 11/25/23 18:15 Pulse 114 H 11/25/23 18:15 Respiratory Rate 16 11/25/23 18:15 Respiratory Effort Short of Breath 11/25/23 18:20 Blood Pressure 202/131 H 11/25/23 18:15 Blood Pressure Position Sitting 11/25/23 18:15 Pulse Oximetry 97 11/25/23 18:15 Oxygen Delivery Method Room Air 11/25/23 18:15 Oxygen Flow Rate 0 11/25/23 18:15 Pain Level 10 11/25/23 18:15 Medical Decision Making 47 year old male presents to the ED with cc of myalgias, left arm pain, neck pain and nausea which began suddenly this afternoon. Denies vomiting or diarrhea, he presents hypertensive, and tachycardic. Denies drugs or alcohol, endorses marijuana. No alcohol in last two days. Denies any recent injuries. Workup ordered including CBC CMP, serial troponins, magnesium, chest CT and abdomen pelvis. Differential diagnosis includes not limited to aortic aneurysm, CAD, gastroenteritis, fibromyalgia, viral illness. Labs are largely unremarkable, D-dimer slightly elevated, CT chest abdomen pelvis shows no evidence for PE, no obstruction no aortic aneurysm, no gallstones or cholecystitis. Unsure of etiology for patients symptoms, Differential includes myalgia, viral illness, Dehydration Patient given 5 mg of metoprolol IV for blood pressure over 200 systolic. After metoprolol given heart rate is 83 blood pressure is decreased from 199/113 which is improved. Will plan to discharge patient home with close follow up with PCP. Repeat Trop Negative, This text was generated using [employer] dictation system, please disregard any oddities of phrase or misspellings. Imaging Data Radiologic Study: Imaging: CT Scan Radiologist's impression: CT CHEST PE CTA 08/03/2021 1:12 AM FINDINGS: VASCULATURE: Pulmonary arteries: Pulmonary artery opacification is of good technical quality. There is no pulmonary arterial embolism evident. Aorta: Thoracic aorta is normal in course, caliber, and contrast enhancement. No aneurysm. No dissection. Abdominal aorta is normal in course, caliber, and enhancement. Abdominal aorta is evaluated to the level of the renal arteries. Celiac trunk and mesenteric arteries: Celiac artery is widely patent. Superior mesenteric artery is widely patent. Renal arteries: Bilateral renal arteries are widely patent. Lungs: Minor posterior left lung base atelectatic features. No acute lung infiltrates. No edema. No suspicious focal lung change. Pleural spaces: Unremarkable. No pneumothorax. No pleural effusion. Heart: Normal heart size. No pericardial effusion. No coronary artery atherosclerotic calcium is visible. ABDOMEN AND PELVIS: Liver: Diffuse [id number] fatty liver infiltration. Gallbladder and bile ducts: The gallbladder is normal in size and shape. No stones or inflammatory changes. Pancreas: Unremarkable. No mass. No ductal dilation. Spleen: The spleen is normal in size, contour and attenuation. Adrenal glands: The adrenal glands are normal in size and contour bilaterally. Kidneys and ureters: Unremarkable. No solid mass. No hydronephrosis. Limited evaluation to the midpole level. Stomach and bowel: Small sliding hiatal hernia. No acute features. Gastric morphology is unremarkable. Small bowel loops which are visible in the upper abdomen are unremarkable. Large bowel visible in the upper abdomen is unremarkable. Appendix: A non inflamed appendix is partially visible on series 4: Images 65 through 67. Intraperitoneal space: Unremarkable. No free air. No significant fluid collection. Lymph nodes: No hilar or mediastinal lymph node enlargement. Subcentimeter lymph nodes are present. Bones/joints: No acute skeletal changes. Lumbar spine is unremarkable. Minor degenerative features. Soft tissues: Thoracic wall and upper abdominal wall soft tissues are unremarkable. IMPRESSION: 1. Thoracoabdominal aorta unremarkable as visualized. No aneurysm. No dissection. 2. No pulmonary arterial embolism. 3. Mesenteric vessels are unremarkable as visualized. 4. Fatty liver. 5. Small sliding hiatal hernia without acute change. 6. Normal heart size. No coronary artery atherosclerosis or pericardial effusion. 7. Mild degenerative thoracic spine features. No acute skeletal change. 8. Thoracic and upper abdominal wall soft tissues are unremarkable. Thank you for allowing us to participate in the care of your patient. Dictated and Authenticated by: Trell Carrington MD Lab Data Lab results reviewed: Yes I reviewed the patient's lab results. Labs: Laboratory Tests Range/Units 11/25/23 18:30 WBC (4.4-10.8) 10^3/uL 10.20 RBC (4.36-5.78) 10^6/uL 4.86 Hgb (13.5-17.5) g/dL 15.0 Hct (40.0-50.0) % 43.3 MCV (80-95) fL 89 MCH (27.0-33.0) pg 30.9 MCHC (32.0-36.0) % 34.6 RDW (11.8-14.1) % 12.9 Plt Count (130-400) 10^3/uL 284 MPV (8.0-11.0) fL 9.3 Immature Gran % 0.3 Neutrophils % 67.9 Lymphocytes % 23.3 Monocytes % 7.3 Eosinophils % 0.7 Basophils % 0.5 Nucleated RBC % (0.0-0.3) % 0.0 Absolute Neutrophils (1.2-6.7) 10^3/uL 6.93 H Absolute Lymphocytes (1.2-3.4) 10^3/uL 2.38 Absolute Monocytes (0.1-0.8) 10^3/uL 0.74 Absolute Eosinophils (0.0-0.7) 10^3/uL 0.07 Absolute Basophils (0.0-0.2) 10^3/uL 0.05 D-Dimer (<500) ng/mlFEU 603 H Sodium (136-145) mmol/L 139 Potassium (3.5-5.1) mmol/L 3.8 Chloride (98-107) mmol/L 102 Carbon Dioxide (21.0-32.0) mmol/L 22.4 Anion Gap (3-11) mmol/L 14.6 H BUN (7-18) mg/dL 13 Creatinine (0.70-1.30) mg/dL 1.3 Est GFR (CKD-EPI 2020) (mL/min/1.73m2) 68.61 Glucose (74-106) mg/dL 117 H Calcium (8.5-10.1) mg/dL 9.5 Magnesium (1.8-2.4) mg/dL 2.0 Total Bilirubin (0.2-1.0) mg/dL 1.3 H AST (15-37) U/L 28 ALT (16-63) U/L 55 Alkaline Phosphatase (46-116) U/L 91 Troponin I (< or =60) ng/L < 50 NT-Pro-B Natriuret Pep (<300) pg/mL 31 Total Protein (6.4-8.2) g/dL 8.2 Albumin (3.4-5.0) g/dL 4.1 COVID-19 Source Nasopharynx SARS-CoV-2 (PCR) (Negative) Negative Influenza Type A (PCR) (Negative) Negative Influenza Type B (PCR) (Negative) Negative RSV (PCR) (Negative) Negative Quality:SDOH Health Related Social Needs: No Data to Display PFSH All Active Problems (Updated 11/25/23 @ 21:21 by Moriah Escobar NP) Hypertension (Chronic) Myalgia (Acute) Tubular adenoma (Acute) 2019, due 2022 Obesity (Chronic) Osteoarthritis (Chronic) right knee HTN (hypertension) (Acute) Medical History Acute diverticulitis 2018, confirmed by CT at [facility] 12/2021-current episode diagnosed clinically Syncope Alcohol intoxication Lipoma removed 2020 Gout Surgical History History of knee surgery R knee Family History Mother High cholesterol Father , 70 Alcohol abuse Diabetes Sister No problems noted. Sister No problems noted. Brother Cancer Brother No problems noted. Brother No problems noted. Brother No problems noted. Social History Smoking/Tobacco Use Status: Current-Occasional Tobacco Type: cigarettes Tobacco: How many years used: 20 Quit status: has quit before Smoking risk assessment performed?: Yes Alcohol Intake: current Alcohol Intake frequency: a few times a week Alcohol type: beer Drug use: Occasionally Substance use type: marijuana Caregiver/Support person: No Household members: other Details: roomate Housing: house Communication Needs: None Pets and animals: Yes Pets and animals: dog(s) Sexually active: Yes Do you think of yourself as: straight/heterosexual Current gender identity: male How often do you talk on the phone with friends or family?: decline to answer How often do you get together with friends or relatives?: decline to answer Do you belong to any clubs or organized social groups?: no Panel score (0-1 are the most socially isolated patients): 0 Seatbelt use: sometimes Helmet use: Yes Helmet use: always Drive intox or ride w/intox auto crane driver: No Do you feel safe at home: Yes Do you feel safe in your relationship?: Yes
[2023-11-25] MEDS: MORPHine 10 MG/ML VIAL 2 MG IVP (18:41)
[2023-11-25] MEDS: Normal Saline 1,000 ML 1000 ML IV (18:42)
[2023-11-25 18:56] LABS: ALT 55 U/L (16-63); AST 28 U/L (15-37); Albumin 4.1 g/dL (3.4-5.0); Alkaline Phosphatase 91 U/L (46-116); Anion Gap 14.6 mmol/L (3-11); BUN 13 mg/dL (7-18); Bilirubin, Total 1.3 mg/dL (0.2-1.0); CO2 22.4 mmol/L (21.0-32.0); CREATININE 1.3 mg/dL (0.70-1.30); Calcium 9.5 mg/dL (8.5-10.1); Chloride 102 mmol/L (98-107); Estimated GFR 68.61 (mL/min/1.73m2); Glucose 117 mg/dL (74-106); NT-proBNP 31 pg/mL (<300); Potassium 3.8 mmol/L (3.5-5.1); Sodium 139 mmol/L (136-145); Total Protein 8.2 g/dL (6.4-8.2); Troponin I < 50 ng/L (< or =60)
[2023-11-25] MEDS: Omnipaque 350 MG/ML 100 ML BTL IJ (18:58)
[2023-11-25] MEDS: Normal Saline - Diluent 50 ML VIAL IJ (18:59)
[2023-11-25 19:05] LABS: D-Dimer 603 ng/mlFEU (<500)
[2023-11-25 19:31] LABS: COVID-19 PCR Negative (Negative); Influenza A PCR Negative (Negative); Influenza B PCR Negative (Negative); RSV PCR Negative (Negative)
[2023-11-25 19:32] LABS: Source Nasopharynx
--- NOTE | 2023-11-25 20:08 | DI.VRAD_ITS ---
PROCEDURE INFORMATION: Exam: CTA Chest With Contrast CTA Abdomen With Contrast Exam date and time: 11/25/2023 7:19 PM Age: 47 years old Clinical indication: Other: Chest pain, nausea TECHNIQUE: Imaging protocol: Computed tomographic angiography of the chest with contrast. Exam focused on the arteries. Computed tomographic angiography of the abdomen with contrast. Exam focused on the arteries. 3D rendering (Not supervised by radiologist): MIP and/or 3D reconstructed images were created by the technologist. Contrast material: OMNI 350; Contrast volume: 100 ml; Contrast route: INTRAVENOUS (IV); COMPARISON: CT CHEST PE CTA 08/03/2021 1:12 AM FINDINGS: VASCULATURE: Pulmonary arteries: Pulmonary artery opacification is of good technical quality. There is no pulmonary arterial embolism evident. Aorta: Thoracic aorta is normal in course, caliber, and contrast enhancement. No aneurysm. No dissection. Abdominal aorta is normal in course, caliber, and enhancement. Abdominal aorta is evaluated to the level of the renal arteries. Celiac trunk and mesenteric arteries: Celiac artery is widely patent. Superior mesenteric artery is widely patent. Renal arteries: Bilateral renal arteries are widely patent. CHEST: Lungs: Minor posterior left lung base atelectatic features. No acute lung infiltrates. No edema. No suspicious focal lung change. Pleural spaces: Unremarkable. No pneumothorax. No pleural effusion. Heart: Normal heart size. No pericardial effusion. No coronary artery atherosclerotic calcium is visible. ABDOMEN AND PELVIS: Liver: Diffuse [id number] fatty liver infiltration. Gallbladder and bile ducts: The gallbladder is normal in size and shape. No stones or inflammatory changes. Pancreas: Unremarkable. No mass. No ductal dilation. Spleen: The spleen is normal in size, contour and attenuation. Adrenal glands: The adrenal glands are normal in size and contour bilaterally. Kidneys and ureters: Unremarkable. No solid mass. No hydronephrosis. Limited evaluation to the midpole level. Stomach and bowel: Small sliding hiatal hernia. No acute features. Gastric morphology is unremarkable. Small bowel loops which are visible in the upper abdomen are unremarkable. Large bowel visible in the upper abdomen is unremarkable. Appendix: A non inflamed appendix is partially visible on series 4: Images 65 through 67. Intraperitoneal space: Unremarkable. No free air. No significant fluid collection. Lymph nodes: No hilar or mediastinal lymph node enlargement. Subcentimeter lymph nodes are present. Bones/joints: No acute skeletal changes. Lumbar spine is unremarkable. Minor degenerative features. Soft tissues: Thoracic wall and upper abdominal wall soft tissues are unremarkable. IMPRESSION: 1. Thoracoabdominal aorta unremarkable as visualized. No aneurysm. No dissection. 2. No pulmonary arterial embolism. 3. Mesenteric vessels are unremarkable as visualized. 4. Fatty liver. 5. Small sliding hiatal hernia without acute change. 6. Normal heart size. No coronary artery atherosclerosis or pericardial effusion. 7. Mild degenerative thoracic spine features. No acute skeletal change. 8. Thoracic and upper abdominal wall soft tissues are unremarkable. Dictated and Authenticated by: Trell Carrington MD. Ordering:ELDA Major MD
[2023-11-25] MEDS: Ketorolac 15 MG/ML VIAL IVP (20:13)
[2023-11-25] MEDS: Metoprolol 5 MG/5 ML VIAL IVP (20:43)
[2023-11-25 21:18] LABS: Troponin I < 50 ng/L (< or =60)
== END 2023-11-25 21:34 | disposition home or self-care (01) ==
PROVIDERS: Emergency Provider Registered Nurse Emergency
DX: M79.10 Myalgia, unspecified site (principal); I10 Essential (primary) hypertension; Z87.891 Personal history of nicotine dependence
CPT/HCPCS: 36415; 71275; 74177; 80053; 87637; 93005; 96361; 96374; 96375; 99285; 83735; 83880; 84484; 85025; 85379; 93010; 99284; J1885; J2270; J3490

== ENCOUNTER → 2024-03-19 03:13 | Outpatient (CLI) | payer SELFPAY ==
--- NOTE | 2024-03-19 | DI.RAD_ITS ---
Exam(s) XR KNEE RT 3V AP,LAT,LUCIO EXAM: XR KNEE RT 3V AP,LAT,LUCIO CLINICAL HISTORY: evaluate pathology PAIN RT KNEE M25.561 PAIN LEFT KNEE M25.562. TECHNIQUE: 2D digital imaging was performed. COMPARISON: CR XR KNEE RT 3V AP,LAT,LUCIO from 11/25/2021 FINDINGS: 3 views No evidence of acute fracture. Joint effusion again noted. Degenerative changes are again noted in all 3 compartments, again more prominent in the medial compartment. No obvious loose intra-articular bodies. No osteochondral defects. IMPRESSION: Degenerative changes, similar to 11/25/2021. Joint effusion again noted. DATA REPOSITORY: RADIATION DOSE DELIVERED:
--- NOTE | 2024-03-19 | DI.RAD_ITS ---
Exam(s) XR KNEE LT 3V AP,LAT,LUCIO EXAM: XR KNEE LT 3V AP,LAT,LUCIO CLINICAL HISTORY: evalutae pathology M25.562 PAIN LEFT KNEE M25.561 PAIN RT KNEE. TECHNIQUE: 2D digital imaging was performed. COMPARISON: CR RIGHT KNEE 3 VIEWS from 03/20/2009 CR XR KNEE RT 3V AP,LAT,LUCIO from 11/18/2021 CR XR KNEE RT 3V AP,LAT,LUCIO from 11/25/2021 CR XR KNEE RT 3V AP,LAT,LUCIO from 03/19/2024 FINDINGS: No evidence of acute fracture. Joint effusion noted. Moderate-advanced degenerative changes noted, most evident in the medial compartment. Bone density normal. No osseous lesions. No osteochondral defects. No calcified loose bodies in the joint space. IMPRESSION: Degenerative changes. Joint effusion. DATA REPOSITORY: RADIATION DOSE DELIVERED:
== END ==
PROVIDERS: PCP Nurse Practitioner Family; Visit Provider Nurse Practitioner Family
DX: M25.561 Pain in right knee (principal); M25.562 Pain in left knee
CPT/HCPCS: 73562

== ENCOUNTER 2024-06-15 12:17 | Day surgery (SDC) | payer SELFPAY ==
[2024-06-15 12:38] VITALS: BP 144/100; PULSE 130; RESP 18; TEMP 36.2; O2SAT 97
[2024-06-15] MEDS: Lactated Ringers 1,000 ML 80 ML IV (12:57)
--- NOTE | 2024-06-15 13:49 | ANES.PREOP_ITS ---
General Info Date of Service Date Performed: 06/15/24 Height: 5 ft 11 in Weight: 110.949 kg Body Mass Index (BMI): 34.1 Surgical Procedure: Operation Date: 06/15/24 13:50 Proposed Procedure Side Surgeon p Colonoscopy Lin MARTINEZ MD Actual Procedure Side Surgeon p Colonoscopy Not Applicable Lin MARTINEZ MD Meds Allergies and Home Medications Allergies Allergy/AdvReac Type Severity Reaction Status Date / Time Sulfa (Sulfonamide Allergy Severe fatal Verified 06/13/24 14:00 Antibiotics) sulfamethoxazole (From Allergy Severe fatal Verified 06/15/24 12:32 Bactrim) trimethoprim (From Bactrim) Allergy Severe fatal Verified 06/15/24 12:32 Home Medication ?Medication ?Instructions ?Recorded lisinopril 40 mg tablet 40 mg PO DAILY #90 tabs 01/07/22 bisacodyl 5 mg tablet,delayed 5 mg PO ONCE Colonoscopy Bowel 06/08/24 release Prep #4 tabs polyethylene glycol 3350 17 238 g PO ONCE #238 grams 06/08/24 gram/dose oral powder meloxicam 15 mg tablet 15 mg PO DAILY PRN 06/13/24 Current Visit Medications: Current Medications Generic Name Dose Route Start Last Admin Trade Name Freq PRN Reason Stop Dose Admin Ringer's Solution 1,000 mls @ 80 mls/hr 06/15/24 06:00 06/15/24 12:57 IV 06/15/24 23:59 80 mls/hr INFUSION CHAVO Administration IV Miscellaneous Supplies 1 each 06/15/24 06:00 Iv Access IV 06/15/24 23:59 DIRECTED CHAVO Sodium Chloride 0 ml 06/15/24 06:00 Normal Saline Flush 10 Ml Syr IV 06/15/24 23:59 PRN PRN Sodium Chloride 0 ml 06/15/24 06:00 Normal Saline 10 Ml Vial IJ 06/15/24 23:59 DIRECTED PRN Sterile Water 0 ml 06/15/24 06:00 Water,Injection,Sterile 10 Ml Vial IJ 06/15/24 23:59 DIRECTED PRN PFSH Active Problems Active Problems: Problem Status Onset Code Tubular adenoma Acute D36.9 Obesity Chronic E66.9 Osteoarthritis Chronic M19.90 HTN (hypertension) Acute I10 Medical History Medical History Acute diverticulitis 2018, confirmed by CT at [facility] 12/2021-current episode diagnosed clinically Syncope Alcohol intoxication Lipoma removed 2020 Gout Surgical History Surgical History History of knee surgery R knee Tobacco Smoking/Tobacco Use Status: Current-Occasional Tobacco Type: cigarettes Passive smoking exposure: Yes Second hand exposure: Yes Alcohol Alcohol Intake: current Alcohol intake frequency: a few times a week Alcohol type: beer Substance Use Substance use: Occasionally Substance use type: marijuana Vital Signs and Lab Results Vital Signs Most Recent Vital Signs in EMR: Most Recent Vital Signs Temp Pulse Resp BP Pulse Ox 36.2 C L 130 H 18 144/100 H 97 06/15/24 12:38 06/15/24 12:38 06/15/24 12:38 06/15/24 12:38 06/15/24 12:38 Lab Results Blood Type / Crossmatch: No Data to Display Complete Blood Count: No Data to Display Complete Metabolic Panel: 2 No Data to Display Liver Function Panel: No Data to Display Coagulation Panel: No Data to Display Cardiac Panel: No Data to Display Arterial Blood Gas: No Data to Display Venous Blood Gas: No Data to Display Pancreas Panel: No Data to Display Thyroid Panel: No Data to Display Infectious Disease: No Data to Display Blood Cultures: No Data to Display Toxicology Panel: No Data to Display Anesthesia Assessment and Plan Anesthesia History Personal History: No History of Anesthesia Complications Family History: No Family History of Anesthesia Complications Exercise Tolerance Exercise Tolerance: Metabolic Equivalents>4 Pertinent Negatives Pertinent Negatives: No Symptoms of GERD Cardiac & Pulmonary Exam Cardiac Exam: Normal S1/S2 Heart Sounds Pulmonary Exam: Clear Bilateral Breath Sounds Implantable Cardiac Device Does patient have a Pacemaker or an ICD?: No Airway Exam Known Difficult Airway: No Mallampati Class: 2 Mouth Opening: Normal (> 3cm) Thyromental Distance: Greater than 3 cm Facial Hair: Full Junior Neck Range of Motion: Full ROM Neck Circumference: Thick Teeth Condition: Normal Dentition ASA Classification ASA Score: ASA 2 Emergency Case?: No NPO Status NPO Status: NPO Clears >2 hours, Solids >8 hours Anesthesia Plan Resuscitation Status: Full Code Anesthesia Technique: General Anesthesia Airway Planned: Natural Airway Monitors Used: Standard Monitors
[2024-06-15 13:50] VITALS: BMI 34.1
--- NOTE | 2024-06-15 14:25 | ROE_ITS ---
Date of service: 06/15/24 Time of Service: 14:26 Operative Note Operative Note PRE-OP DIAGNOSIS: Colon cancer screening, history of tubulovillous adenoma POST-OP DIAGNOSIS: same Normal colonoscopy 8 PROCEDURE: Colonoscopy SURGEON: Lin MARTINEZ ANESTHESIA TYPE: MAC Refer to Anesthesia Record PATHOLOGY: none sent COMPLICATIONS: None Patient was transported to: PACU Patient's condition: stable Findings: Normal appearing mucosa, diverticular disease in the sigmoid colon Procedure Description: After obtaining informed consent, patient was brought back to the operating room. He was turned to his left side and connected to the monitor. Timeout was performed. Propofol was administered by the nurse knife setter assembler. I began by performing a digital rectal exam. This was unremarkable. I inserted the colonoscope and advanced the length of the colon. I attained the cecum as identified by the appendiceal orifice and the ileocecal valve. I did not intubate the terminal ileum. The cecum had a normal appearance. The prep was good. I withdrew along the ascending colon, transverse colon, descending colon, and sigmoid colon. No mucosal abnormalities were noted. He did have moderate diverticular disease in the sigmoid colon. I withdrew into the rectum. I did retroflex. This was unremarkable. I decompressed the sigmoid and the rectum and withdrew the scope entirely. Patient tolerated well. He went to recovery in stable condition. Disposition: Patient will be discharged home later today. He should plan to have a repeat colonoscopy in 5 years given personal history of adenomas and family history of colon cancer.
[2024-06-15 14:26] VITALS: BP 142/105; PULSE 95; RESP 22; TEMP 36.4; O2SAT 94
--- NOTE | 2024-06-15 14:33 | W.ANESPOSTOP ---
Postoperative Evaluation Date, Time and Location Date Performed: 06/15/24 Time Performed: 14:33 Patient Location: Day Surgery Unit Vital Signs Most Recent Imported Vital Signs: Most Recent Vital Signs Temp Pulse Resp BP Pulse Ox 36.2 C L 130 H 18 144/100 H 97 06/15/24 12:38 06/15/24 12:38 06/15/24 12:38 06/15/24 12:38 06/15/24 12:38 Pain Score Most Recent Pain Score: Most Recent Pain Score Pain Level 0 06/15/24 12:38 Assessment Mental Status: Awake (Alert & Oriented to Patient Baseline) Airway and Respiratory Function: Patent airway with normal (patient baseline) respiratory exam Cardiovascular Function: Hemodynamically Stable Hydration Status: Adequately Hydrated Nausea & Vomiting: No Nausea or Vomiting Pain: Pt. Denies Any Pain Peripheral Nerve Block: Patient did not receive a nerve block
[2024-06-15 14:56] VITALS: BP 149/106; PULSE 95; RESP 20; TEMP 36.7; O2SAT 96
== END 2024-06-15 15:20 | disposition home or self-care (01) ==
PROVIDERS: PCP Nurse Practitioner Family; Visit Provider Surgery
PROC: 0DJD8ZZ Inspection of Lower Intestinal Tract, Via Natural or Artificial Opening Endoscopic (ICD-10-PCS; CPT 45378; principal; 2024-06-15 13:45)
DX: Z12.11 Encounter for screening for malignant neoplasm of colon (principal); K57.30 Diverticulosis of large intestine without perforation or abscess without bleeding
CPT/HCPCS: 45378; 00123; J2704

== ENCOUNTER 2024-08-07 09:34 | Observation (INO) | payer SELFPAY ==
[2024-08-07] VITALS (43 sets, daily range): BP systolic 137–191; BP diastolic 10–163; PULSE 72–105; RESP 12–34; TEMP 37–37.6; O2SAT 93–99
--- NOTE | 2024-08-07 10:00 | DI.CT_ITS ---
Exam(s) CT ABDOMEN PELVIS W EXAM: CT ABDOMEN PELVIS W CLINICAL HISTORY: Bilateral lower quadrant pain. TECHNIQUE: Imaging Protocol: Axial computed tomography images with coronal and sagittal reformatted images were created and reviewed CONTRAST MATERIAL: Intravenous: Omnipaque-350 100cc Oral: None COMPARISON: CT CT CHEST PE ABD PELVIS W from 11/25/2023 FINDINGS: VISUALIZED LUNG BASES: Mild increased markings in the lingular segment of the left lung again noted. No pleural effusions.. ABDOMEN: LIVER: There are no focal hepatic lesions evident. No dilated intrahepatic ducts. GALLBLADDER/BILIARY: No obvious gallbladder pathology. CBD is not dilated. PANCREAS: No evidence of pancreatic mass nor dilatation of the pancreatic duct. SPLEEN: Spleen is not enlarged. No obvious intrasplenic lesions. Splenic and portal veins are paten t. ADRENALS: There are no significant adrenal masses. KIDNEYS:No cysts evident. No solid renal masses. No calculi nor hydronephrosis.. Retro aortic left renal vein noted. This is patent no evidence thrombosis. ABDOMINAL AORTA: Abdominal aorta is not enlarged. LYMPH NODES:There is no retroperitoneal nor paraaortic adenopathy. ABDOMINAL WALL: Again noted is an anterior abdominal wall fat containing umbilical hernia. GI: There is sigmoid diverticulosis and there is evidence of severe acute diverticulitis in the upper -mid sigmoid with perisigmoid streaking and some fluid. There does not, however, appear to be a form ed abscess at this time. There is slight thickening of the adjacent left side of the urinary bladder wall. There is no gas within the urinary bladder evident to suggest fistulous communication. PELVIS: GI: No evidence of appendicitis. LYMPH NODES: There is no intrapelvic nor inguinal adenopathy. REPRODUCTIVE: Prostate mildly enlarged. Seminal vesicles unremarkable. URINARY BLADDER: As above. OSSEOUS: Benign bone island again noted in the right iliac bone of the pelvis. No lytic osseous lesi ons evident. No fractures. IMPRESSION: 1. Findings are consistent with acute sigmoid diverticulitis. There is abundant perisigmoid streakin g and a small amount of fluid but no formed abscess evident at this time. 2. The adjacent left side of the urinary bladder wall is slightly thickened most probably reactive to the adjacent sigmoid inflammatory process. There is presently no evidence of gas within the bladder lumen to suggest fistulous communication. 3. There is no gas in the biliary tree. No evidence of liver abscess. 4. Appendix unremarkable. Called by myself to ER 08/07/2024 at 12:18 p.m. RADIATION DOSE DELIVERED: 919.82mGy.cm Total DLP DATA REPOSITORY: All CT scans at this facility are submitted to the National Radiology Data Registry (NRDR) Dose Index Registry (DIR) with the [employer] (ACR). RADIATION OPTIMIZATION: All CT scans at this facility use at least one of these dose optimization te chniques: automated exposure control; mA and/or kV adjustment per patient size (includes targeted exa ms where dose is matched to clinical indication); or iterative reconstruction.
[2024-08-07 10:19] LABS: Abs Immature Grans 0.06 10^3/uL (0.0-0.06); Absolute Basophil Count 0.04 10^3/uL (0.0-0.2); Absolute Eosinophil Count 0.06 10^3/uL (0.0-0.7); Absolute Lymphocyte Count 1.77 10^3/uL (1.2-3.4); Absolute Monocyte Count 0.77 10^3/uL (0.1-0.8); Basophils % 0.3 %; Eosinophils % 0.5 %; HCT 47.2 % (40.0-50.0); HGB 16.4 g/dL (13.5-17.5); Immature Grans % 0.5 %; MCHC 34.7 % (32.0-36.0); MCV 92 fL (80-95); MPV 9.2 fL (8.0-11.0); Monocytes % 6.5 %; Neutrophils % 77.2 %; Platelet Count 259 10^3/uL (130-400); RBC 5.12 10^6/uL (4.36-5.78); RDW 12.6 % (11.8-14.1); RDW-SD 43.1 fL; WBC 11.82 10^3/uL (4.4-10.8)
[2024-08-07 10:20] LABS: Absolute Neutrophil Count 9.13 10^3/uL (1.2-6.7)
[2024-08-07] MEDS: fentaNYL 100 MCG/2 ML VIAL 50 MCG IVP (10:25)
--- NOTE | 2024-08-07 10:27 | ED.GENADUL_ITS ---
Discharge Plan Disposition Patient Disposition: Admit to [facility] Discharge Details Clinical Impression: Acute diverticulitis Admit Date/Time: 08/07/24 13:25 Admit Provider: Billy Terry Attending Provider: Billy Terry Primary Care Provider: Marily Luu ED Provider: Lupillo Cui Discharge Data Discharge Date/Time-TO BE ENTERED AT DEPARTURE: 08/07/24 14:42 HPI General Date/Time Provider Initiated Documentation: 08/07/24 10:11 . HPI Narrative: MDM This is an overall well-appearing afebrile but mildly tachycardic 48-year-old male with diffuse lower abdominal pain history of diverticulitis concerning for the possibility of recurrent diverticulitis. No pain out of proportion to suggest necrotizing soft tissue infection. No chest pain to suggest ACS so I did not obtain ECG. No testicular pain to suggest torsion so I did not obtain an ultrasound. No dysuria no frequency so doubt UTI. No flank pain nor history of ureterolithiasis so my suspicion was low for ureterolithiasis. No epigastric tenderness so my suspicion is low for pancreatitis. Appendicitis is certainly possible given abdominal tenderness. Will keep patient NPO. I considered sep sis as patient is mildly tachycardic but he was not febrile or hypotensive so I did not treat empirically with antibiotics nor draw blood cultures nor check a lactate. No trauma to suggest increased risk for retroperitoneal hemorrhage. No shortness of breath to suggest PE. Patient has not been vomiting so my suspicion is low for SBO. No specific right upper quadrant tenderness to suggest acute cholecystitis. No rash to suggest zoster. 12:25 PM Patient has signs of acute sigmoid diverticulitis with abundant perisigmoid streaking and small amount of fluid. No signs of perforation or abscess. Will touch base with general surgery concerning his scan. Comprehensive metabolic panel showing hyperglycemia but no anion gap normal bicarbonate?-not consistent with DKA. No JAYME. Hypoalbuminemia. CBC shows no leukocytosis. No anemia. No thrombocytopenia. 1:21 PM I was in touch with Dr. Terry who agreed graciously to accept the patient for hospitalization. I offered to order antibiotics but he reported that he would place a dose to ensure timing of subsequent doses. Chronic conditions affecting the care of the patient: Elevated BMI History obtained from an outside historian: N/A External record review: N/A Medications: Fentanyl Social determinants of health affecting disposition: N/A Management discussed with: General Surgery Treatment/interventions considered: N/A Response to therapies provided: Mildly improved symptoms in the ED HPI This is a 48-year-old male with a history of elevated BMI right emergency department via private vehicle in the setting of intense abdominal pain which began 4 days ago. Patient describes a cramping abdominal pain is bilateral lower quadrants. He has prior history of diverticulitis but notes that his pain feels worse today. He has no history of nephrolithiasis. He is nauseous but has not been vomiting. No fevers. His last p.o. intake was last night. He denies dysuria frequency and testicular pain. He rarely drinks ethanol and rarely smokes tobacco. He denies IV drug use. He is not having any shortness of breath or chest pain. No rashes to abdomen. No recent falls. Exam General: Well-appearing in no acute distress speaking in complete sentences. Head: Normocephalic, atraumatic. Eye: Extraocular eye movements intact. No conjunctival injection. No scleral icterus. Ear, nose, mouth, throat: Grossly normal inspection. Normal voice, handling secretions normally. Neck: Trachea midline. Cardiovascular: Well-perfused distal extremities. Respiratory: Nonlabored respiration. Clear lungs bilaterally Gastrointestinal: Nondistended abdomen. Soft. Bilateral lower quadrant tenderness. No rebound. No guarding. Musculoskeletal: No edema. Moving all 4 extremities spontaneously. Skin: Normal for age and race, grossly normal temperature and turgor. No acute rash. Neurologic: Alert and appropriate, no apparent acute deficits. Psychiatric: Mood and manner are appropriate. Grooming and personal hygiene are appropriate. Related Data Home Medications ?Medication ?Instructions ?Recorded ?Confirmed lisinopril 40 mg tablet 40 mg PO DAILY #90 tabs 01/07/22 08/07/24 meloxicam 15 mg tablet 15 mg PO DAILY PRN 06/13/24 08/07/24 Previous Rx's ?Medication ?Instructions ?Recorded lisinopril 40 mg tablet 40 mg PO DAILY #90 tabs 01/07/22 Allergies Allergy/AdvReac Type Severity Reaction Status Date / Time Sulfa (Sulfonamide Allergy Severe fatal Verified 08/07/24 09:49 Antibiotics) sulfamethoxazole (From Allergy Severe fatal Verified 08/07/24 09:49 Bactrim) trimethoprim (From Bactrim) Allergy Severe fatal Verified 08/07/24 09:49 General Stated Complaint: Abd Prob [place]: 3 Course Vital Signs Vital signs: Vital Signs Temperature 37.3 C 08/07/24 09:43 Pulse 105 H 08/07/24 09:43 Respiratory Rate 17 08/07/24 09:43 Blood Pressure 167/131 H 08/07/24 09:43 Pulse Oximetry 99 08/07/24 09:43 Temperature 37.3 C 08/07/24 09:43 Temperature Source Oral 08/07/24 09:43 Pulse 105 H 08/07/24 09:49 Respiratory Rate 17 08/07/24 09:49 Respiratory Effort Normal 08/07/24 09:48 Blood Pressure 167/131 H 08/07/24 09:43 Blood Pressure Position Sitting 08/07/24 09:49 Pulse Oximetry 99 08/07/24 09:49 Oxygen Delivery Method Room Air 08/07/24 09:49 Oxygen Flow Rate 0 08/07/24 09:49 Pain Level 7 08/07/24 10:25 Lab/Test Results Lab/Test Results: Laboratory Tests Range/Units 08/07/24 10:15 WBC (4.4-10.8) 10^3/uL 11.82 H RBC (4.36-5.78) 10^6/uL 5.12 Hgb (13.5-17.5) g/dL 16.4 Hct (40.0-50.0) % 47.2 MCV (80-95) fL 92 MCH (27.0-33.0) pg 32.0 MCHC (32.0-36.0) % 34.7 RDW (11.8-14.1) % 12.6 Plt Count (130-400) 10^3/uL 259 MPV (8.0-11.0) fL 9.2 Immature Gran % % 0.5 Neutrophils % % 77.2 Lymphocytes % % 15.0 Monocytes % % 6.5 Eosinophils % % 0.5 Basophils % % 0.3 Nucleated RBC % (0.0-0.3) % 0.0 Absolute Neutrophils (1.2-6.7) 10^3/uL 9.13 H Absolute Lymphocytes (1.2-3.4) 10^3/uL 1.77 Absolute Monocytes (0.1-0.8) 10^3/uL 0.77 Absolute Eosinophils (0.0-0.7) 10^3/uL 0.06 Absolute Basophils (0.0-0.2) 10^3/uL 0.04 Medical Decision Making Quality:SDOH Health Related Social Needs: No Data to Display PFSH All Active Problems (Updated 08/07/24 @ 13:22 by Lupillo Cui MD) Acute diverticulitis (Acute) Tubular adenoma (Acute) 2019, due 2022 Obesity (Chronic) Osteoarthritis (Chronic) right knee HTN (hypertension) (Acute) Medical History (Updated 08/07/24 @ 13:22 by Lupillo Cui MD) Acute diverticulitis 2018, confirmed by CT at [facility] 12/2021-current episode diagnosed clinically Syncope Alcohol intoxication Lipoma removed 2020 Gout Surgical History (Updated 06/18/24 @ 12:17 by Cary Randall) History of colonoscopy (~05/2024) History of knee surgery R knee Family History Mother High cholesterol Father , 70 Alcohol abuse Diabetes Sister No problems noted. Sister No problems noted. Brother Cancer Brother No problems noted. Brother No problems noted. Brother No problems noted. Social History (Updated 04/06/24 @ 15:05 by Whitney Franks) Smoking/Tobacco Use Status: Current-Occasional Tobacco Type: cigarettes Tobacco: How many years used: 20 Quit status: has quit before Second Hand Exposure: Yes Smoking risk assessment performed?: Yes Alcohol Intake: current Alcohol Intake frequency: a few times a week Alcohol type: beer Drug use: Occasionally Substance use type: marijuana Caregiver/Support person: No Household members: other Details: roomate Housing: house Communication Needs: None Pets and animals: Yes Pets and animals: dog(s) Sexually active: Yes Do you think of yourself as: straight/heterosexual Current gender identity: male How often do you talk on the phone with friends or family?: decline to answer How often do you get together with friends or relatives?: decline to answer Do you belong to any clubs or organized social groups?: no Panel score (0-1 are the most socially isolated patients): 0 Seatbelt use: sometimes Helmet use: Yes Helmet use: always 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 Do you feel safe at home: Yes Additional Social history: lives alone PAWSS Have you Been Recently Intoxicated or Drunk Within the Last 30 days?: No Have you Ever Experienced Previous Episodes of Alcohol Withdrawal?: No Have you ever Experienced Withdrawal Seizures?: No Have you ever Experienced Delirium Tremens(DT)s?: No Have you ever undergone Alcohol Rehabilitation Treatment (i.e, inpt ot outpatient treatment programs)?: No Have you ever Experienced Blackouts?: No Have you ever Combined Alcohol with other Downers within the last 90 days?: No Have you ever Combined Alcohol with any other Substance of Abuse during the last 90 days?: No Result: 0
--- OUTSIDE RECORDS SUMMARY | 2024-08-07 10:35 | XMS_ITS | Encounter Summary ---
Author Organization [facility] [place] [address] Care Team Providers Care Insights Strategist Name Role Phone Emerita Falcon MD Primary Care Provider [phone] Encounter Details Date Type Department Care Team (Late st Contact Info) Description 09/29/2023 Telephone Pain Management at [facility] [place] [address] Brianna Elizabeth RN Social History Tobacco Use Types Packs/Day Years Used Date Smoking Tobacco: Former Cigarettes - 2021 Passive Smoke Exposure: Current Smokeless Tobacco: Never Comments:Doesn't smoke durin g the week. 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 no 12/06/2022 Feels Threatened by Someone no 11/18 Feels Unsafe at Home or Work/School no 12/06/2022 Physical Signs of Abuse Present no 12/06/2022 Sex and Gender Information Value Date Recorded Sex Assigned at Not on file Gender Identity Not on file Sexual Orientation Not on file documented as of this encounter Plan of Treatment Not on file documented as of this encounter Visit Diagnoses Not on filedocumented in this encounter Care Teams Insights Strategist Relationship Specialty Start Date End Date Emerita Falcon MD [address] [place] [address] PCP - General Family Medicine 08/12/23 documented as of this encounter
--- OUTSIDE RECORDS SUMMARY | 2024-08-07 10:35 | XMS_ITS | Encounter Summary ---
Author Organization [facility] Address [facility] [place] [address] Care Team Providers Care Product Assurance Engineer Name Role Phone Belkys Houston MD Primary Care Provider [phone] Encounter Details Date Type Department Care Team (Late st Contact Info) Description 07/18/2023 Telephone Primary Care at [address] [address] Belkys Houston MD [address] [place] [address] Social History Tobacco Use Types Packs/Day Years Used Date Smoking Tobacco: Former Cigarettes 2021 Smokeless Tobacco: Never Comments:Doesn't smoke durin g the week. Alcohol Use Standard Drinks/Week Comments Yes 14 [...] on file documented as of this encounter Miscellaneous Notes * Telephone Encounter - Cam Hager RN - 07/21/2023 3:28 PM EDT Findings and impressions of MRI received. Will leave with provider, patient seen by Renu Hector on 07/12, who also ordered MRI. Advised would leave with him for review. Patient states he was given the tentative date for him to rerun to work on the , but states that did not happen. Reports he still experiences pain and would like instructions moving forward as he is considering disability for ongoing symptoms * Telephone Encounter - Cam Hager RN - 07/21/2023 3:21 PM EDT Patient called office on this. Per chart review, cannot find in imaging, care everywhere, or media. Planned with patient that this race and sports book writer will request fax from [facility]. Will notify patient by tomorrow morning if records were received or not received. Called [facility] and requested MRI faxed to [phone]. * Telephone Encounter - Cammy Murcia LPN - 07/18/2023 2:59 PM EDT Pt asking for MRI results that were done at an outside facility on Tuesday documented in this encounter Plan of Treatment Not on file documented as of this encounter Visit Diagnoses Not on filedocumented in this encounter Care Teams Product Assurance Engineer Relationship Specialty Start Date End Date Belkys Houston MD [address] [place] [id number] PCP - General Family Medicine 06/21/22 08/11/23 documented as of this encounter
--- OUTSIDE RECORDS SUMMARY | 2024-08-07 10:35 | XMS_ITS | Encounter Summary ---
Author Organization [facility] Address [facility] [place] [address] Care Team Providers Care Trench Pipe Layer Helper Name Role Phone Emerita Falcon MD Primary Care Provider [phone]- [phone] Encounter Details Date Type Department Care Team (Latest Contact Info) Description 08/19/2023 11:50 AM EST Laboratory Appointment Lab at [address] [address] Low back pain, non-specific; Lumbar radiculopathy, right Social History Tobacco Use Types Packs/Day Years [...] on file documented as of this encounter Procedures Procedure Name Priority Date/Time Associated Diagnosis Comments OPIOIDS CONFIRMATION PANEL, URINE (CRANDON) Routine 08/19/2023 11:50 AM EST Lumbar radiculopathy, right RAPID DRUG SCREEN, COMPLIANCE MONITORING Routine 08/19/2023 11:50 AM EST Lumbar radiculopathy, right [facility] OPIOID SCREEN, URINE Routine 08/19/2023 11:50 AM EST Lumbar radiculopathy, right THC (MARIJUANA), URINE, CONFIRMATION Routine 08/19/2023 11:50 AM EST CRP, ACUTE INFLAMMATION Routine 08/19/2023 11:33 AM EST Low back pain, non-specific HEMOGRAM Routine 08/19/2023 11:33 AM EST Low back pain, non-specific DIFFERENTIAL, AUTOMATED Routine 08/19/2023 11:33 AM EST Low back pain, non-specific CBC (WITH DIFF) Routine 08/19/2023 11:33 AM EST Low back pain, non-specific COMPREHENSIVE METABOLIC PANEL Routine 08/19/2023 11:33 AM EST Low back pain, non-specific documented in this encounter Results * THC (Marijuana), Urine Confirmation (08/19/2023 11:50 AM EST) U THC Conf Test ?Result ? Flag ??Unit ?? RefValue --- Carboxy-THC Confirmation, U ??Delta-8 Carboxy-Tetrahydroc annabinol by ?? Not Detected ? ng/mL ??Cutoff: 5 ?LC-MS/MS ??Delta-9 Carboxy-Tetrahydroc annabinol by ?? 15 ? ng/mL ??Cutoff: 5 ?LC-MS/MS ??Carboxy-THC Interpretation ?Positive. ? --ADDITIONAL INFORMATION-------- ?This report is intended for use in clinical monitoring and ?management of patients. ??It is not intended for use in ?employment-relate d testing. ?This test was developed and its performance characteristics ?determined by [facility] in a manner consistent with CLIA ?requirements. This test has not been cleared or approved by ?the U.S. Food and Drug Administration. ?Test Performed by: ?[facility] ?[address] [id number] ?[employer] Mixer: Demetrio Harris M.D. Ph.D.; CLIA# [id number] [facility] Urine 08/19/2023 11:5 0 AM EST 08/22/2023 1:57 PM EST Narrative Resulting Agency Comment Spec In Lab Emerita Falcon MD LAB SEND OUT ORDER TONY [facility] [place] [address] * Opioids Confirmation Panel, Urine (08/19/2023 11:50 AM EST) Targeted Opioid Panel, Urine (MAY) Test ?Result ? Flag ??Unit ?? RefValue ------- Targeted Opioid Screen, U ??List prescribed opioids ? See medication list ? ---ADDITIONAL INFORMATION------- ?Accuracy and completeness of declared medications on ?reports solely dependent on information submitted by ?client. ??Codeine ? Not Detected ? ng/mL ??Cutoff: 25 ?Tylenol 3 ??Xkirkgt-6-kkhj-g lucuronide ?Not Detected ? ng/mL ??Cutoff: 100 ?Metabolite of codeine ??Morphine ?Not Detected ? ng/mL ??Cutoff: 25 ?Kristen Andrea, MS Contin; Also a minor metabolite (10%) of ?codeine and can be seen in low concentrations (<2,000 ?ng/mL) with poppy seed ingestion. ??Ahzdaoml-8-bfvz- glucuronide ? Not Detected ? ng/mL ??Cutoff: 100 ?Metabolite of morphine ??6-monoacetylmorp angelito ?Not Detected ? ng/mL ??Cutoff: 25 ?Metabolite of heroin ??Hydrocodone ? Not Detected ? ng/mL ??Cutoff: 25 ?Lortab, [place], Vicodin; Also a very minor metabolite of ?codeine and impurity (<1%) of oxycodone. ??Norhydrocodone ?Not Detected ? ng/mL ??Cutoff: 25 ?Metabolite of hydrocodone ??Dihydrocodeine ?Not Detected ? ng/mL ??Cutoff: 25 ?Metabolite of hydrocodone ??Hydromorphone ? Not Detected ? ng/mL ??Cutoff: 25 ?Dilaudid, Exalgo; Also a metabolite of hydrocodone and a ?minor (<5%) metabolite of morphine. ??Hydromorphone-3- beta-glucuronide ?Not Detected ? ng/mL ??Cutoff: 100 ?Metabolite of hydromorphone ??Oxycodone ? Not Detected ? ng/mL ??Cutoff: 25 ?Endocet, Percocet, Oxycontin ??Noroxycodone ?Not Detected ? ng/mL ??Cutoff: 25 ?Metabolite of oxycodone ??Oxymorphone ? Not Detected ? ng/mL ??Cutoff: 25 ?Numorphan, Opana; Also a metabolite of oxycodone. ??Duxkcdmnqpq-5-ot ta-glucuronide ?Not Detected ? ng/mL ??Cutoff: 100 ?Metabolite of oxymorphone and/or naloxone (nornaloxone) ??Noroxymorphone ?Not Detected ? ng/mL ??Cutoff: 25 ?Metabolite of oxymorphone and/or naloxone (nornaloxone) ??Fentanyl ?Not Detected ? ng/mL ??Cutoff: 2 ?Actiq, Duragesic, Fentora ??Norfentanyl ? Not Detected ? ng/mL ??Cutoff: 2 ?Metabolite of fentanyl ??Meperidine ?Not Detected ? ng/mL ??Cutoff: 25 ?Demerol ??Normeperidine ? Not Detected ? ng/mL ??Cutoff: 25 ?Metabolite of meperidine ??Naloxone ?Not Detected ? ng/mL ??Cutoff: 25 ?Narcan ??Envdypds-6-ihyc- glucuronide ? Not Detected ? ng/mL ??Cutoff: 100 ?Metabolite of naloxone ??Methadone ? Not Detected ? ng/mL ??Cutoff: 25 ?Dolophine ??EDDP ?Not Detected ? ng/mL ??Cutoff: 25 ?Metabolite of methadone ??Propoxyphene ?Not Detected ? ng/mL ??Cutoff: 25 ?Darvon, Darvocet ??Norpropoxyphene ? Not Detected ? ng/mL ??Cutoff: 25 ?Metabolite of propoxyphene ??Tramadol ?Not Detected ? ng/mL ??Cutoff: 25 ?Tradol, Ultram, Ultracet ??O-desmethyltrama dol ? Not Detected ? ng/mL ??Cutoff: 25 ?Metabolite of tramadol ??Tapentadol ?Not Detected ? ng/mL ??Cutoff: 25 ?Nucynta ??N-desmethyltapen tadol ? Not Detected ? ng/mL ??Cutoff: 50 ?Metabolite of tapentadol ??Tapentadol-beta- glucuronide ? Not Detected ? ng/mL ??Cutoff: 100 ?Metabolite of tapentadol ??Buprenorphine ? Not Detected ? ng/mL ??Cutoff: 5 ?Buprenex, Suboxone ??Norbuprenorphine ?Not Detected ? ng/mL ??Cutoff: 5 ?Metabolite of buprenorphine ??Norbuprenorphine glucuronide ?Not Detected ? ng/mL ??Cutoff: 20 ?Metabolite of buprenorphine ??Opioid Interpretation ? SEE COMMENTS ?No opioids were detected. The absence of expected drug(s) ?and/or drug metabolite(s) may indicate non-compliance, ?altered pharmacokinetics, inappropriate timing of specimen ?collection relative to drug administration, ?diluted/adultera jessica urine, or limitations of testing. ? ---ADDITIONAL INFORMATION------- ?This test was developed and its performance characteristics ?determined by [facility] in a manner consistent with CLIA ?requirements. This test has not been cleared or approved by ?the U.S. Food and Drug Administration. ?Test Performed by: ?[facility] ?[address] [place] [address] ?[employer] Mixer: Demetrio Harris M.D. Ph.D.; CLIA# [id number] [facility] Urine 08/19/2023 11:5 0 AM EST 08/19/2023 5:40 PM EST Emerita Falcon MD LAB SEND OUT ORDER TONY [facility] [address] [place] [address] * (ABNORMAL) Rapid Drug Screen, Compliance Monitoring (08/19/2023 11:50 AM EST) Barbiturates Screen, Urine None Detected None Detected [facility] Comment: The barbiturate screen detects barbiturates at concentrations >200 ng/mL. Note: Not all barbiturates cross-react equally with antibody used in this screen. A ? Presumptive Positive? result indicates that the screening result was positive but has not yet been confirmed by a highly-specific method. As with any screen, occasional false positive results from cross-reacting substances may occur. Not for Medico-Legal Purposes. Benzodiazepines Screen, Urine None Detected None Detected [facility] Comment: The benzodiazepines screen detects benzodiazepines at concentrations >100 ng/mL. Not all benzodiazepines cross-react equally with antibody used in this screen. Due to the low dosage of clonazepam, false negatives may be obtained due to low concentration of clonazepam metabolites. A ? Presumptive Positive? result indicates that the screening result was positive but has not yet been confirmed by a highly-specific method. As with any screen, occasional false positive results from cross-reacting substances may occur. Not for Medico-Legal Purposes. Cocaine Screen, Urine None Detected None Detected [facility] Comment: The cocaine metabolites screen detects benzoylecgonine (Cocaine Metabolite) at concentrations >150 ng/mL. A ? Presumptive Positive? result indicates that the screening result was positive but has not yet been confirmed by a highly-specific method. As with any screen, occasional false positive results from cross-reacting substances may occur. Not for Medico-Legal Purposes. Cannabinoid Screen, Urine Presumptive Pos(A) None Detected [facility] Comment: The marijuana metabolites screen detects the THC metabolite (90-qiy-1-carboxy-delta 9-THC) at concentrations >20 ng/mL. A ? Presumptive Positive? result indicates that the screening result was positive but has not yet been confirmed by a highly-specific method. As with any screen, occasional false positive results from cross-reacting substances may occur. Not for Medico-Legal Purposes. Tricyclics Screen, Urine None Detected None Detected [facility] Comment: The tricyclics screen detects tricyclic antidepressants at concentrations >=150 ng/mL. Not all tricyclics cross-react equally with the antibody used in this screen. A ? Presumptive Positive? result indicates that the screening result was positive but has not yet been confirmed by a highly-specific method. As with any screen, occasional false positive results from cross-reacting substances may occur. Not for Medico-Legal Purposes. This test has not been cleared by the [place] FDA. Performance characteristics of this test were determined by [facility] in accordance with CLIA requirements. This laboratory is qualified under CLIA to perform high-complexity testing. Ethanol Screen, Urine Positive(A) None Detected [facility] Comment:This urine ethanol a ssay detects ethanol at concentrations >/= 100 mg/L. Amphetamines Screen, Urine None Detected None Detected [facility] Comment: The amphetamine screen detects d-amphetamine and d-methamphetamine at concentrations >300 ng/mL. A ? Presumptive Positive? result indicates that the screening result was positive but has not yet been confirmed by a highly-specific method. As with any screen, occasional false positive results from cross-reacting substances may occur. Not for Medico-Legal Purposes. Chromate Specimen Validity Test, Urine <2.0 <=49.9 mg/L [facility] Creatinine Specimen Validity Test, Urine 67 >=20 mg/dL [facility] Nitrite Specimen Validity Test, Urine <50 <=499 mg/L [facility] Oxidant Specimen Validity Test, Urine 11 <=199 mg/L [facility] pH Specimen Validity Test, Urine 5.9 3.0 - 10.9 [facility] Adulterants Screen, Urine None Detected None Detected [facility] Comment:No adulteration of t his urine sample was detected. Urine 08/19/2023 11:5 0 AM EST 08/19/2023 7:48 PM EST Narrative Resulting Agency Comment Spec In Lab Emerita Falcon MD URINE ORDERABLES Performing Organization Address City/State/[facility] Co de Phone Number [facility] [place] [address] * Differential, Automated (08/19/2023 11:33 AM EST) Neutrophil % 48.7 % [facility] Neutrophil Absolute 3.25 1.70 - 6.10 x10(3)/[facility] Lymph % 39.6 % [facility] Lymphocytes Abs 2.6 0.9 - 3.2 x10(3)/[facility] Monocyte % 7.1 % [facility] Monocyte Abs 0.5 0.3 - 0.9 x10(3)/[facility] Eos % 3.2 % [facility] Eosinophils Abs 0.2 0.0 - 0.4 x10(3)/[facility] Basophil % 0.8 % [facility] Baso Absolute 0.0 0.0 - 0.1 x10(3)/[facility] Immature Gran % 0.60 % [facility] Comment: Immature granulocytes(IG's)percentage and absolute count will include metamyelocytes, myelocytes, and promyelocytes. Blood smears from CBCs yielding IG's will be scanned manually for concordance. If this scan disagrees with the automated IG or if promyelocytes are noted, a manual differential will be performed. Immature Gran Absolute 0.04 0.00 - 0.04 x10(3)/[facility] Blood 08/19/2023 11:3 3 AM EST 08/19/2023 11:33 AM EST Narrative Resulting Agency Comment Spec In Lab Emerita Falcon MD HEMATOLOGY ORDERAB LES Performing Organization Address City/State/[facility] Co de Phone Number [facility] [address] [place] [address] * Hemogram (08/19/2023 11:33 AM EST) White Blood Cell 6.7 4.0 - 9.5 x10(3)/[facility] Red Blood Cell 5.09 4.58 - 5.54 x10(6)/[facility] Hemoglobin 15.8 13.7 - 16.5 g/dL [facility] Hematocrit 45.4 40.5 - 48.5 % [facility] Mean Cell Volume 89.2 82.9 - 93.1 fL [facility] Mean Cell Hemoglobin 31.0 27.5 - 32.1 pg [facility] Mean Cell Hemoglobin Concentration 34.8 32.0 - 35.7 g/dL [facility] Platelet 319 145 - 357 x10(3)/[facility] RDW Standard Deviation 44.2 36.0 - 45.0 fL [facility] RDW coefficient of variation 13.5 11.4 - 13.8 % [facility] Mean Platelet Volume 8.9 7.6 - 12.9 fL [facility] NRBC% auto 0.0 % [facility] NRBC Absolute 0.000 0.000 - 0.000 x10(3)/[facility] Blood 08/19/2023 11:3 3 AM EST 08/19/2023 11:33 AM EST Narrative Resulting Agency Comment Spec In Lab Emerita Falcon MD HEMATOLOGY ORDERAB LES [facility] [address] [place] [address] * (ABNORMAL) Comprehensive metabolic panel (non-fasting) (08/19/2023 11:33 AM EST) Glucose 98 65 - 199 mg/dL [facility] Comment:Diabetes: >=200 mg/d L plus symptoms Blood Urea Nitrogen 16 10 - 20 mg/dL [facility] Creatinine 1.30 0.80 - 1.50 mg/dL [facility] Sodium 138 135 - 145 mmol/L [facility] Potassium 4.6 3.5 - 5.0 mmol/L [facility] Comment: Please note: ??Patients with WBC >100,000 may have falsely elevated Potassium levels. ??For accurate Potassium quantification in these patients send serum separator tube (gold top) for subsequent determinations. ??Contact the Clinical Chemistry Laboratory if there are any questions. Chloride 104 98 - 107 mmol/L [facility] Carbon Dioxide 23 22 - 31 mmol/L [facility] Anion Gap 11 5 - 15 mmol/L [facility] Calcium 9.9 8.5 - 10.5 mg/dL [facility] Protein, Total 7.4 6.1 - 8.0 g/dL [facility] Albumin 4.5 3.2 - 5.2 g/dL [facility] Aspartate Aminotransferase 37 0 - 39 unit/L [facility] Alanine Aminotransferase 56(H) 0 - 55 unit/L [facility] Alkaline Phosphatase 79 40 - 130 unit/L [facility] Bilirubin, Total 0.7 0.2 - 1.3 mg/dL [facility] Est Glomerular Filtration Rate 69 >=60 mL/min/1. 73 m?? [facility] Comment: This patient's estimated GFR was calculated using the 2020 CKD-EPI equation. The estimated GFR can vary from the measured GFR by up to 30% in the absence of rapidly changing kidney function. Assessment of the estimated GFR is not appropriate when creatinine concentrations are rapidly changing. For clinical situations in which a more precise estimate of GFR is necessary, consider alternative methods of GFR estimation such as a 24-hour urine creatinine clearance. Assignment of CKD stage 1-5 for patients with an eGFR near the transition point between stages may be based on clinical assessment of muscle mass and symptoms in addition to eGFR. Blood 08/19/2023 11:3 3 AM EST 08/19/2023 11:33 AM EST Narrative Resulting Agency Comment Spec In Lab Emerita Falcon MD CHEMISTRY ORDERABL ES Performing Organization Address [facility] Co de Phone Number [facility] [address] [place] [address] * CRP, acute inflammation (08/19/2023 11:33 AM EST) C-Reactive Protein <3.0 <=4.9 mg/L [facility] Blood 08/19/2023 11:3 3 AM EST 08/19/2023 11:33 AM EST Narrative Resulting Agency Comment Spec In Lab Emerita Falcon MD CHEMISTRY ORDERABL ES Performing Organization Address [facility] Co de Phone Number [facility] [address] [place] [address] documented in this encounter Visit Diagnoses Diagnosis Low back pain, non-specific Lumbar radiculopathy, right documented in this encounter Care Teams Trench Pipe Layer Helper Relationship Specialty Start Date End Date Emerita Falcon MD [address] [place] [address] PCP - General Family Medicine 08/12/23 documented as of this encounter
--- OUTSIDE RECORDS SUMMARY | 2024-08-07 10:35 | XMS_ITS | Encounter Summary ---
Author Organization [facility] Address [facility] [place] [address] Care Team Providers Care Handbag Operator Name Role Phone Emerita Falcon MD Primary Care Provider [phone]- [phone] Reason for Visit * Physical Therapy (Routine) - Closed Specialty Diagnoses / Procedures Referred By Contac t Referred To Contact Physical Therapy Diagnoses Lumbar back pain Amber Eastman, [address] [facility] [address] [place] [id number] [facility] [address] [place] [address] Referral ID Status Reason Start Date Expiration Date V isits Requested Visits Authorized [id number] Closed Evaluate and Treat 07/07/2023 07/06/2024 20 20 Encounter Details Date Type Department Care Team (Late st Contact Info) Description 09/02/2023 3:00 PM EST Office Visit Physical Therapy at [address] [address] Melia Baez, TELEGRAPH MESSENGER Low back pain, non-specific Social History Tobacco Use Types Packs/Day Years Used Date Smoking Tobacco: Former Cigarettes - 2021 Passive Smoke Exposure: Current Smokeless Tobacco: Never Comments:Doesn't smoke durin g the week. 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 male to address 1. Low back pain, non-specific S: I don't have as much pain in my leg ,but I feel lit in my back O: Reviewed HEP Instructed with LTR Side lying hip abd. Side lying clamshells A: pt fatigued quickly with LE therex. Consider standing therex next visit P: continue per plan Total Timed Code Treatment: 30 minutes Total Treatment Time: 30 minutes Melia Baez PTA documented in this encounter Plan of Treatment Not on file documented as of this encounter Visit Diagnoses Diagnosis Low back pain, non-specific documented in this encounter Care Teams Handbag Operator Relationship Specialty Start Date End Date Emerita Falcon MD [address] [place] [address] PCP - General Family Medicine 08/12/23 documented as of this encounter
--- OUTSIDE RECORDS SUMMARY | 2024-08-07 10:35 | XMS_ITS | Encounter Summary ---
Author Organization [facility] Address [facility] [place] [address] Care Team Providers Care Sawmill Moulder Operator Name Role Phone Belkys Houston MD Primary Care Provider [phone] Encounter Details Date Type Department Care Team (Latest Contact Info) Description 07/28/2023 Travel Social History Tobacco Use Types Packs/Day Years [...] on filedocumented in this encounter Care Teams Sawmill Moulder Operator Relationship Specialty Start Date End Date Belkys Houston MD [address] [place] [id number] PCP - General Family Medicine 06/21/22 08/11/23 documented as of this encounter
--- OUTSIDE RECORDS SUMMARY | 2024-08-07 10:35 | XMS_ITS | Encounter Summary ---
Author Organization [facility] Address [facility] [place] [address] Care Team Providers Care Supervisor Coating Name Role Phone Emerita Falcon MD Primary Care Provider [phone]- [phone] Reason for Visit * Physical Therapy (Routine) - Closed Specialty Diagnoses / Procedures Referred By Contac t Referred To Contact Physical Therapy Diagnoses Lumbar back pain Amber Eastman, ROOM SERVICE CLERK [address] [place] [address] [facility] [address] [place] [address] Referral ID Status Reason Start Date Expiration Date V isits Requested Visits Authorized [id number] Closed Evaluate and Treat 07/07/2023 07/06/2024 20 20 Encounter Details Date Type Department Care Team ([facility] st Contact Info) Description 08/24/2023 3:00 PM EST Office Visit Physical Therapy at [address] [address] Carson Mittal, PT Low back pain, non-specific Social History Tobacco Use Types Packs/Day Years Used Date Smoking Tobacco: Former Cigarettes - 2021 Smokeless Tobacco: Never Comments:Doesn't smoke durin [...] as of this encounter Miscellaneous Notes * Initial Evaluation - Carson Mittal, PT - 08/24/2023 3:00 PM EST PHYSICAL THERAPY INITIAL EXAMINATION Date of Exam/First Treatment: 08/24/2023 Date of onset: Several weeks ago Referring Provider: Amber Eastman Primary Insurance: Payor: Instagram / Plan: Instagram OPEN ACCESS PLUS / Product Type: *No Product type* / Diagnosis and Pertinent Co-morbidities affecting Plan of Care: 1. Low back pain, non-specific CURRENT HISTORY: Demetrio Rivers is a 47 y.o. male referred to physical therapy for treatment of back pain and R LE pain. The patient reports that his pain was initially worst/more affected in his R LE but this hasrecently gotten better and now he is having significant back pain. He has been managing his symptoms with activity modifications such as using a gerald chair with lumbar support, as well as with medication with some effect. 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 Current Exercises/Hobbies: Enjoys cooking Pain: Current: 4/10; Worst 8/10; within the last 2 weeks with radiation aching, dull, sharp, and spasms complains of numbness and tingling Relieving factors: Sitting, rest - depends on how irritated his symptoms are Home self treatment includes: Tramadol, meloxicam, muscle relaxers RED FLAGS: denies: Bowel/bladder, recurrent fever/chills, saddle paresthesias, unexplained weight loss, cough/sneeze, abnormal gait Prior level of Function: Fully functioning Current Level of Function / Functional Limitations / Aggravating factors: Standing, walking, reaching, lifting. Pertinent Past Medical History: 2013 meniscus repair Imaging: see chart review for specifics under Imaging tab. No Current Imaging Studies (X): See chart review for full description of MRI from outside source X-Ray Findings: MRI Findings: CT-Scan Findings: CLINICAL FINDINGS: EXAMINATION Neuro Screen: Slump: RIght-positive Left-not tested SLR: Right-not tested Left-not tested Myotomes - See below Reflexes: Right Left Patella Normal Normal Achilles Hyporeflexic Normal Gait: Significant antalgia noted Posture: Often rotated to the L, tripod position at times, flexed throughout preferred position Repeated Movements: Attempted to lie supine but he was in too much pain to stay in this position for any longer than 10-15 seconds LUMBAR ROM: Amount of Movement Pain Flexion 75% Hamstring and LBP Extension 25% Sharp LBP Side Bending R 50% Pain in R Side Bending L 50% Pulling in R Rotation R Rotation L NT = Not Tested Manual Muscle Testing- Affected side Right Right Left L2L3 Quadriceps 5/5 5/5 Iliopsoas 5/5 5/5 L4 Quadriceps 5/5 5/5 Anterior tibialis 4/5 5/5 L5 EHL 4/5 5/5 Gluteus medius NT NT S1 Hamstrings 5/5 5/5 Gluteus max NT NT Gastrocnemius NT NT Fibularis 4/5 5/5 * = Performed with Increased pain NT = Not Tested Functional Assessment Tool: Modified Oswestry: Higher score = Increased Disability 08/24/2023 2:47 PM Modified SILVER 1. Pain Intensity... Pain medication provides me with moderate relief from pain 2. Personal Care (Washing, Dressing, etc.)... I can take care of myself normally but it increases my pain 3. Lifting... I can lift heavy weights but it causes increased pain 4. Walking... Pain prevents me from walking more than ?? mile 5. Sitting... I can only sit in my favorite chair as long as I like 6. Standing... I can stand as long as I want but increases my pain 7. Sleeping... Even when I take pain medication, I sleep less than 6 hours 8. Social Life... Pain prevents me from participating in more energetic activities (ex. sports, dancing etc.) 9. Traveling... I can travel anywhere but it increases my pain 10. Employment/Homemaking... My normal homemaking/job activities increase my pain, but I can still perform all that is required of me Modified SILVER Score (Range 0-50) 15 Modified SILVER % Disability 30 (Moderate disability) CLINICAL EVALUATION AND DIAGNOSIS: 47 year-old male patient presents to PT clinic with continued acute low back pain with resolving radicular symptoms with noted impairments in some myotomal weakness, pain down his leg and glute, and an apparent preference for flexion as expected given his diagnosis. The patient is doing okay; his pain remains reactive with difficulty lying supine but with reassuring x-ray and MRI to rule out fracture or infection; PT plans on a progressive program initially focused on movement and then progressing towards more resistance training to allow him to handle his job duties. The patient will benefitfrom skilled physical therapy care to address their underlying impairments to allow them to improvetheir overall level of functioning. Demetrio Rivers was given the modified Oswestry questionnaire and presents with 30% functional limitation. Demetrio Rivers has 2 personal factors and/or comorbidities contributing to their condition. The examination of body systems addressed 2 elements. Their clinical presentation is Stable. This evaluation required clinical decision making of low complexity using standardized patient questionnaires, functional outcome measures and/or subjective and objective data gathered during the visit. With skilled physical therapy Demetrio Rivers has a good prognosis to achieve their therapy goals. GOALS: Therapy Short Term Goals (6 weeks) Patient will: 1. be indep with basic home exercise program and self management strategies for pain symptoms. Therapy Elevator Troubleshooter Goals (12 weeks) Patient will: 1. 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 2. demonstrate an improved Modified Oswestry score by reduction of 9 points for statistically significant improvement in functional ability. 3. demonstrate improved lumbar spine mobility to 100% of AROM for increased flexibility. 4. report ability to travel for any distance without pain sx's in his lower back as reported on theMod. Oswestry. 5. report ability to sit for any length of time needed without pain sx's in his lower back as reported on the Mod. Oswestry. 6. Report ability to stand at any length of time needed without more than 3 pain sx in his lower back 7. Report ability to walk for any length of time needed without more than 3 pain sx in his lower back INITIAL TREATMENT INCLUDED: Examination and instruction in a home exercise program (refer to chart copy or to scan doc in chart review for details), patient education regarding physical therapy plan of care, anatomy and diagnosis. Ther ex -Seated fwd flexion multiple times a day PLAN: Frequency and duration:1 x's per week End date: 11/16/23 Treatments may include: Manual Techniques, Soft Tissue Mobilization, Stretching, Joint Mobilization, Therapeutic Exercise, Modalities (PRN to control pain and inflammation) hot/cold pack, e-stim with dry needling, Patient/Family Education, Body Mechanics, Posture, Home Exercise Program, Balance and Gait Training, Dry-Needling, and Pain Science Education Total Treatment Time: 45 min Total Timed Coded Treatment: 15 min The plan has been discussed with the patient and Demetrio Hawkinsdows has agreed with the planned treatment. Carson Mittal PT, DPT, OCS Physician Signature: Date: In signing this document, the physician certifies these services are medically necessary. documented in this encounter Plan of Treatment Scheduled Referrals Name Type Priority Associated Diagnoses Orde r Schedule Referral to Physical Therapy Outpatient Referral Routine Lumbar back pain Ordered: 07/07/2023 documented as of this encounter Visit Diagnoses Diagnosis Low back pain, non-specific documented in this encounter Care Teams Supervisor Coating Relationship Specialty Start Date End Date Emerita Falcon MD [address] [place] [address] PCP - General Family Medicine 08/12/23 documented as of this encounter
--- OUTSIDE RECORDS SUMMARY | 2024-08-07 10:35 | XMS_ITS | Encounter Summary ---
Author Organization [facility] Address [facility] [place] [address] Care Team Providers Care Pre Kindergarten Teacher Name Role Phone Belkys Houston MD Primary Care Provider [phone] Reason for Visit * Reason Onset Date Comments Triage 07/12/2023 Back Pain 07/12/2023 Encounter Details Date Type Department Care Team (Late st Contact Info) Description 07/12/2023 Nurse Triage Primary Care at [address] [address] Guilherme Akhtar, jawbone puller; Back Pain Social History Tobacco Use Types Packs/Day Years [...] encounter Miscellaneous Notes * Telephone Encounter - Guilherme Akhtar RN - 07/12/2023 8:37 AM EDT Reason for Call: Triage and Back Pain Brief Health History (Onset, Location, Duration, Characteristics, Aggravating Factors, Relieving Factors/Radiation,Timing, and Severity): Zaida calls for patient. Patient provides verbal permission to speak to patient. They answer triage questions together on speakerphone. Patient has been evaluated for back pain multiple times over the last month+. His last visit was on 07/07/2023. He reports that he is having worsening pain when standing / walking (rated 8-9/10). Pain is 4/10 at rest. He endorses tingling in his toes along with weakness of his right leg. He denies any groin numbness, tingling, or pain. Denies any bowel or bladder incontinence. Patient has been using tylenol, meloxicam, c yclobenzaprine, and lidocaine. He uses heat and ice. He has not yet scheduled visits with PT. He reports that the tingling and weakness in right leg are new and worsening. Worsening Symptoms: Emphasized symptoms that require emergent/urgent care according to EPIC protocol utilized or other documented decision support tool. Patient able to teach back worsening symptoms and action to take. Patient/Caregiver demonstrates understanding via teach back: Yes Disposition: Go to ED Now (or to Office with PCP Approval) Patient scheduled for office visit this afternoon. Reason for Disposition Weakness of a leg or foot (e.g., unable to bear weight, dragging foot) Protocols used: Back Pain-A-[place] documented in this encounter Plan of Treatment Not on file documented as of this encounter Visit Diagnoses Not on filedocumented in this encounter Care Teams Pre Kindergarten Teacher Relationship Specialty Start Date End Date Belkys Houston MD [address] [place] [id number] PCP - General Family Medicine 06/21/22 08/11/23 documented as of this encounter
--- OUTSIDE RECORDS SUMMARY | 2024-08-07 10:35 | XMS_ITS | Encounter Summary ---
Author Organization [facility] Address [facility] [place] [address] Care Team Providers Care Sociology Faculty Member Name Role Phone Emerita Falcon MD Primary Care Provider [phone]- [phone] Encounter Details Date Type Department Care Team (Late st Contact Info) Description 10/05/2023 Telephone Primary Care at [address] [address] Debby Rasmussen Social History Tobacco Use Types Packs/Day Years Used Date Smoking Tobacco: Former Cigarettes - 2021 Passive Smoke Exposure: Current Smokeless Tobacco: Never Comments:Doesn't smoke durin g the week. 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
--- OUTSIDE RECORDS SUMMARY | 2024-08-07 10:35 | XMS_ITS | Encounter Summary ---
Author Organization [facility] Address [facility] [place] [address] Care Team Providers Care Internal Control Manager Name Role Phone Emerita Falcon MD Primary Care Provider [phone]- [phone] Reason for Visit * Reason Comments Follow-up 6 week follow up. Encounter Details Date Type Department Care Team (Late st Contact Info) Description 10/04/2023 4:30 PM EST Office Visit Primary Care at [facility] [address] [place] [phone] Emerita Falcon MD [address] [facility] [place] [address] Low back pain, non-specific; Witnessed apneic spells; Class 2 obesity due to excess calories without serious comorbidity with body mass index (BMI) of 36.0 to 36.9 in adult Social History Tobacco Use Types Packs/Day Years Used Date Smoking Tobacco: Former Cigarettes 2021 Passive Smoke Exposure: Current Smokeless Tobacco: Never Comments:Doesn't smoke durin g the week. 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 male Assessment/Plan: Problem List Items Addressed This Visit Low back pain, non-specific Acute on chronic low back pain about 12 weeks so far. 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 Pain significantly improved - no longer requiring tramadol or muscle relaxers Working with PT. OK to cancel apt with spine surgery Physical exam today with significant improvement in symptoms OK to return to work after PT eval on 10/07 - plan to return to work 10/10 without restrictions unless otherwise noted by PT Reviewed red flags and return precautions Class 2 obesity due to excess calories with body mass index (BMI) of 36.0 to 36.9 in adult Pt committed to significantly changing diet and exercise routine - has already started daily gym exercises and short running exercises Will follow up on lifestyle changes at upcoming physical Other Visit Diagnoses Witnessed apneic spells Waiting to hear about home sleep study. Encouraged pt to call company to get scheduled FU for physical when convenient Patient is aware of signs and symptoms that require follow-up care or emergency care. Patient is in agreement with today's plan. Leaves in stable condition. Will follow-up as discussed or sooner if needed. HPI: # back pain FU of acute flare of low back pain with radiculopathy Initial severe pain with numbness in right foot. 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 Pain was severe anytime he tried to bend or lift MRI showing no evidence of compression but does show edema in L4 and L5 pedicles. Was referred to physical therapy and spine surgery Now in the last few weeks, has seen improvement in pain and radicular symptoms. Can now bend and lift without severe pain. Physical therapy has been helping Numbness and weakness in right leg has resolved Pt feels like he is ready to go back to work after one more PT apt (10/07/23) - work to start on 10/10/23 # sleep apnea Still waiting to hear about scheduling of home sleep study Lab Results Component Value Date HA1C 5.7 (H) 06/08/2023 Lab Results Component Value Date NA 138 08/19/2023 K 4.6 08/19/2023 CL 104 08/19/2023 CO2 23 08/19/2023 BUN 16 08/19/2023 CREATININE 1.30 08/19/2023 GLUCOSE 98 08/19/2023 GLUCFASTING 91 04/15/2022 CALCIUM 9.9 08/19/2023 ESTGFR 69 08/19/2023 Lab Results Component Value Date ALT 56 (H) 08/19/2023 AST 37 08/19/2023 ALKPHOS 79 08/19/2023 BILITOT 0.7 08/19/2023 BILIDIR 0.2 11/05/2016 ALBUMIN 4.5 08/19/2023 PROT 7.4 08/19/2023 No results found for: MICROALBUR, [id number] Lipid Panel Lab Results Component Value Date CHLPL 155 05/30/2020 HDL 41 05/30/2020 TRIG 120 05/30/2020 LDLCHOL 90 05/30/2020 Patient Active Problem List Diagnosis Code Primary hypertension I10 Osteoarthritis of right knee M17.11 Tubular adenoma of colon D12.6 Diverticulitis of both small and large intestine without perforation or abscess with bleeding K57.53 Low back pain, non-specific M54.50 Tachycardia R00.0 Class 2 obesity due to excess calories with body mass index (BMI) of 36.0 to 36.9 in adult E66.09, Z68.36 Current Medication: meloxicam (Mobic) 15 mg tablet lidocaine (Lidoderm) 5% Adhesive Patch, Medicated allopurinoL (Zyloprim) 100 mg tablet diclofenac (Voltaren) 1 % Gel lisinopriL (Zestril) 40 mg Tablet Allergies Allergen Reactions Bactrim [Sulfamethoxazole-Trimethoprim] Hives and Other (See Comments) Fever, sweating, shortness of breath Physical Exam: BP 136/84 Pulse (!) 112 Temp 36.7 ??C (98.1 ??F) (Temporal) Wt 120.3 kg (265 lb 3.2 oz) SpO2 96% BMI 36.99 kg/m?? GEN: well appearing, no acute distress PULM: breathing comfortably on room air. No respiratory distress ABD: non-distended NEURO: alert and oriented, no facial droop. 5/5 strength in lower ext, sensation intact throughout,symmetric patellar reflexes. Gait intact Back: no TTP along spine or spinous processes. ROM intact at lumbar spine PSYCH: calm, cooperative 30 minutes were spent on date of visit, including non-face to face time. documented in this encounter Miscellaneous Notes * Assessment & Plan Note - Emerita Falcon MD - 10/05/2023 10:08 AM EST Associated Problem(s): Class 2 obesity due to excess calories with body mass index (BMI) of 36.0 to36.9 in adult Pt committed to significantly changing diet and exercise routine - has already started daily gym exercises and short running exercises Will follow up on lifestyle changes at upcoming physical * Assessment & Plan Note - Emerita Falcon MD - 10/05/2023 10:06 AM EST Associated Problem(s): Low back pain, non-specific Acute on chronic low back pain about 12 weeks so far. 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 Pain significantly improved - no longer requiring tramadol or muscle relaxers Working with PT. OK to cancel apt with spine surgery Physical exam today with significant improvement in symptoms OK to return to work after PT eval on 10/07 - plan to return to work 10/10 without restrictions unless otherwise noted by PT Reviewed red flags and return precautions documented in this encounter Plan of Treatment Not on file documented as of this encounter Visit Diagnoses Diagnosis Low back pain, non-specific Witnessed apneic spells Apnea Class 2 obesity due to excess calories without serious comorbidity with body mass index (BMI) of 36.0 to 36.9 in adult documented in this encounter Care Teams Internal Control Manager Relationship Specialty Start Date End Date Emerita Falcon MD [address] [place] [address] PCP - General Family Medicine 08/12/23 documented as of this encounter
--- OUTSIDE RECORDS SUMMARY | 2024-08-07 10:35 | XMS_ITS | Encounter Summary ---
Author Organization [facility] Address [facility] [place] [address] Care Team Providers Care Medical Library Assistant Name Role Phone Emerita Falcon MD Primary Care Provider [phone]- [phone] Encounter Details Date Type Department Care Team (Latest Contact Info) Description 09/02/2023 Travel Social History Tobacco Use Types Packs/Day Years Used Date Smoking Tobacco: Former Cigarettes 2021 Passive Smoke Exposure: Current Smokeless Tobacco: Never Comments:Doesn't smoke durin g the week. 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
--- OUTSIDE RECORDS SUMMARY | 2024-08-07 10:35 | XMS_ITS | Encounter Summary ---
Author Organization [facility] Address [facility] [place] [address] Care Team Providers Care Assistant Professor In Family Studies Name Role Phone Emerita Falcon MD Primary Care Provider +1- [phone] Reason for Visit * Physical Therapy (Routine) - Closed Specialty Diagnoses / Procedures Referred By Contac t Referred To Contact Physical Therapy Diagnoses Lumbar back pain Amber Eastman, PSYCHOLOGIST DEVELOPMENTAL [address] [place] [address] [facility] [address] [place] [address] Referral ID Status Reason Start Date Expiration Date V isits Requested Visits Authorized [id number] Closed Evaluate and Treat 07/07/2023 07/06/2024 20 20 Encounter Details Date Type Department Care Team (Late st Contact Info) Description 09/30/2023 3:30 PM EST Office Visit Physical Therapy at [address] [address] Carson Mittal, PT Low back pain, non-specific Social History Tobacco Use Types Packs/Day Years Used Date Smoking Tobacco: Former Cigarettes - 2021 Passive Smoke Exposure: Current Smokeless Tobacco: Never Comments:Doesn't smoke durin g the week. 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 male to address 1. Low back pain, non-specific S:The patient reports that he is doing well; he continues to go to the gym and is hoping to return to work shortly. O: Treatment consisting of: Ther ex- Nu-step x5min. Fwd and lateral rolling with ball in sitting Pallof press 7# strap Sit to stand 2x10 4 KG LTR on ball -Bridging Bird dogs on ball A: The patient is making excellent progress and will continue to work on this current loading program of his posterior chain P: continue per plan Total Timed Code Treatment: 30 minutes Total Treatment Time: 30 minutes Carson Mittal PT documented in this encounter Plan of Treatment Not on file documented as of this encounter Visit Diagnoses Diagnosis Low back pain, non-specific documented in this encounter Care Teams Assistant Professor In Family Studies Relationship Specialty Start Date End Date Emerita Falcon MD [address] [facility] [address] PCP - General Family Medicine 08/12/23 documented as of this encounter
--- OUTSIDE RECORDS SUMMARY | 2024-08-07 10:35 | XMS_ITS | Encounter Summary ---
Author Organization [facility]1983 Address [facility] [place] [address] Care Team Providers Care Dental Insurance Biller Name Role Phone Emerita Falcon MD Primary Care Provider +1- [phone] Encounter Details Date Type Department Care Team (Late st Contact Info) Description 08/19/2023 Orders Only Primary Care at [address] [address] Emerita Falcon MD [address] [facility] [place] [address] Tachycardia Social History Tobacco Use Types Packs/Day Years [...] on file documented as of this encounter Results * Holter Monitor 48hr (09/07/2023 10:12 AM EST) Anatomical Region Laterality Modality Other Narrative 09/09/2023 6:41 PM EST Normal sinus rhythm is seen predominately throughout to days of study with an average heart rate of 80 bpm No significant sustained atrial or ventricular arrhythmias No significant pauses 5 triggered events reported correlated with normal sinus rhythm Conclusion: No significant arrhythmias Emerita Falcon MD C[employer]I[facility] [employer] R[employer]LES documented in this encounter Visit Diagnoses Diagnosis Tachycardia Tachycardia, unspecified Tachycardia Tachycardia, unspecified documented in this encounter Care Teams Dental Insurance Biller Relationship Specialty Start Date End Date Emerita Falcon MD [address] [place] [address] PCP - General Family Medicine 08/12/23 documented as of this encounter
--- OUTSIDE RECORDS SUMMARY | 2024-08-07 10:35 | XMS_ITS | Encounter Summary ---
Author Organization [facility] Address One [facility] [place] [address] Care Team Providers Care Assembly Line Machine Operator Name Role Phone Emerita Falcon MD Primary Care Provider +1- [phone] Reason for Visit * Reason Comments Follow-up One week follow up b ack pain. Encounter Details Date Type Department Care Team (Late st Contact Info) Description 08/25/2023 1:10 PM EST Office Visit Primary Care at [facility] [address] [place] [phone] Emerita aFlcon MD [address] [place] [address] Witnessed apneic spells; Tachycardia; Low back pain, non-specific Social History Tobacco [...] Sign Reading Time Taken Comments Blood Pressure 142/100 08/25/2023 1:08 PM EST Pulse 91 08/25/2023 1:08 PM EST Temperature 36.7 ??C (98 ??F) 08/25/2023 1:08 PM EST Respiratory Rate - - Oxygen Saturation 97% 08/25/2023 1:08 PM EST Inhaled Oxygen Concentration - - Weight 116.6 kg (257 lb) 08/25/2023 1:08 PM EST Height - - Body Mass Index 35.86 08/18/2023 4:37 PM EST documented in this encounter Progress Notes * Emerita Falcon MD - 08/25/2023 1:10 PM EST ID: Demetrio Rivers is a 47 y.o. male Assessment/Plan: Problem List Items Addressed This Visit Low back pain, non-specific Acute on chronic low back pain about 7 weeks so far Numbness in R big toe and weakness R leg now starting to improve MRI showing no evidence of compression but does show edema in L4 and L5 pedicles CBC CMP CRP without evidence infection Already started PT - going well Continue supportive cares and pain meds. Referral to spine clinic already ordered by previous provider Tachycardia Periodic episodes of tachycardia caught by home smart watch. cannot interpret ecg through josse. ECG after last apt did not catch episodes. holter monitor ordered and pending Reviewed red flags and ED return precautions. Encouraged to go if having any symptoms during episodes of tachycardia so we can diagnose rhythm and initiate treatment Other Visit Diagnoses Witnessed apneic spells Profound daytime fatigue, witnessed snoring and episodes of apnea at night, HTN, very thick neck. STOP BANG score of 6 - referral for home sleep study Relevant Orders Home Sleep Study Fu in 4-6 weeks once holter, sleep study, and a few weeks of PT have been completed Patient is aware of signs and symptoms that require follow-up care or emergency care. Patient is in agreement with today's plan. Leaves in stable condition. Will follow-up as discussed or sooner if needed. HPI: # fatigue Witnessed apnea and snoring at night Does not feel well rested Wakes himself up snoring or partner wakes him up when he stops breathing # tachycardia Had one more episode the other day Episodic episodes of elevated heart rate caught on heart monitor Heart monitor ordered and pending # low back pain See apt last week Now starting PT - going well Sciatica is getting better Now mostly all in the back Last utox pos for cannabis and etoh - endorses drinking 1-2 drinks per night Using tramadol once daily in the morning Lab Results Component Value Date HA1C 5.7 [...] 7.4 08/19/2023 No results found for: MICROALBUR, [id number] Lipid Panel Lab Results Component Value Date CHLPL 155 05/30/2020 HDL 41 05/30/2020 TRIG 120 05/30/2020 LDLCHOL 90 05/30/2020 Patient Active Problem List Diagnosis Code Primary hypertension I10 Osteoarthritis of right knee M17.11 Tubular adenoma of colon D12.6 Diverticulitis of both small and large intestine without perforation or abscess with bleeding K57.53 Low back pain, non-specific M54.50 Tachycardia R00.0 Current Medication: baclofen (Lioresal) 20 mg tablet lidocaine (Lidoderm) 5% Adhesive Patch, Medicated allopurinoL (Zyloprim) 100 mg tablet diclofenac (Voltaren) 1 % Gel lisinopriL (Zestril) 40 mg Tablet Allergies Allergen Reactions Bactrim [Sulfamethoxazole-Trimethoprim] Hives and Other (See Comments) Fever, sweating, shortness of breath Physical Exam: BP (!) 142/100 Pulse 91 Temp 36.7 ??C (98 ??F) (Temporal) Wt 116.6 kg (257 lb) SpO2 97% BMI 35.86 kg/m?? GEN: tired appearing, no acute distress HEENT: thick neck on exam PULM: breathing comfortably on room air. No respiratory distress ABD: non-distended NEURO: alert and oriented, no facial droop PSYCH: calm, cooperative documented in this encounter Miscellaneous Notes * Assessment & Plan Note - Emerita Falcon MD - 08/25/2023 1:36 PM EST Associated Problem(s): Tachycardia Periodic episodes of tachycardia caught by home smart watch. cannot interpret ecg through josse. ECG after last apt did not catch episodes. holter monitor ordered and pending Reviewed red flags and ED return precautions. Encouraged to go if having any symptoms during episodes of tachycardia so we can diagnose rhythm and initiate treatment * Assessment & Plan Note - Emerita Falcon MD - 08/25/2023 1:34 PM EST Associated Problem(s): Low back pain, non-specific Acute on chronic low back pain about 7 weeks so far Numbness in R big toe and weakness R leg now starting to improve MRI showing no evidence of compression but does show edema in L4 and L5 pedicles CBC CMP CRP without evidence infection Already started PT - going well Continue supportive cares and pain meds. Referral to spine clinic already ordered by previous provider documented in this encounter Plan of Treatment Not on file documented as of this encounter Visit Diagnoses Diagnosis Witnessed apneic spells Apnea Tachycardia Tachycardia, unspecified Low back pain, non-specific documented in this encounter Care Teams Assembly Line Machine Operator Relationship Specialty Start Date End Date Emerita Falcon MD [address] [place] [address] PCP - General Family Medicine 08/12/23 documented as of this encounter
--- OUTSIDE RECORDS SUMMARY | 2024-08-07 10:35 | XMS_ITS | Encounter Summary ---
Author Organization [facility] Address [facility] [place] [address] Care Team Providers Care Petroleum Analyst Name Role Phone Emerita Falcon MD Primary Care Provider +1- [phone] Reason for Referral * Diagnostic Test (Routine) - Authorized Specialty Diagnoses / Procedures Referred By Contac t Referred To Contact Sleep Center Diagnoses Witnessed apneic spells Procedures Home Sleep Study Emerita Falcon MD [address] [place] [address] Sleep Medicine, [facility] [address] [facility] [address] [place] [address] Referral ID Status Reason Start Date Expiration Date Visits Requested Visits Authorized [id number] Authorized Specialty Service Requested 3 09/06/2024 1 1 Encounter Details Date Type Department Care Team ([facility] st Contact Info) Description 09/06/2023 Orders Only Primary Care at [facility] [address] [place] [address] Emerita Falcon MD [address] [place], [place] [id number] Witnessed apneic spells Social History Tobacco Use Types Packs/Day Years Used Date Smoking Tobacco: Former Cigarettes - 2021 Passive Smoke Exposure: Current Smokeless Tobacco: Never Comments:Doesn't smoke durin g the week. 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
--- OUTSIDE RECORDS SUMMARY | 2024-08-07 10:35 | XMS_ITS | Encounter Summary ---
Author Organization [facility] Address One [facility] [place] [address] Care Team Providers Care Shift Leader Name Role Phone Emerita Falcon MD Primary Care Provider +1- [phone] Reason for Visit * Reason Onset Date Comments Medication Refill 09/01/2023 Encounter Details Date Type Department Care Team (Late st Contact Info) Description 09/01/2023 Refill Primary Care at [address] [phone] Rosalie Earl Social History Tobacco Use Types Packs/Day Years Used Date Smoking Tobacco: Former Cigarettes - 2021 Passive Smoke Exposure: Current Smokeless Tobacco: Never Comments:Doesn't smoke durin g the week. 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 Alcohol [...] encounter Miscellaneous Notes * Telephone Encounter - Zaida Reynoso RN - 09/01/2023 1:53 PM EST Med listed as historical UTD on CBC and CMP Last visit - 11/9/23 * Telephone Encounter - Rosalie Earl - 09/01/2023 1:46 PM EST Please refill meloxicam (Mobic) 15 mg tablet [id number] - [place], [place] - [address] [place] [address] Thank you Urgent out of meds documented in this encounter Plan of Treatment Not on file documented as of this encounter Visit Diagnoses Not on filedocumented in this encounter Care Teams Shift Leader Relationship Specialty Start Date End Date Emerita Falcon MD [address] [place] [address] PCP - General Family Medicine 08/12/23 documented as of this encounter
--- OUTSIDE RECORDS SUMMARY | 2024-08-07 10:35 | XMS_ITS | Encounter Summary ---
Author Organization [facility] Address [facility] [address] Care Team Providers Care Head Bookkeeper Name Role Phone Emerita Falcon MD Primary Care Provider +1- [phone] Reason for Visit * Reason Comments Medication Refill Encounter Details Date Type Department Care Team ([facility] st Contact Info) Description 08/29/2023 Refill Primary Care at [address] [address] Enma Ngo, BUSINESS SUPPORT ASSOCIATE [address] [place] [address] Primary osteoarthritis of right knee Social History Tobacco Use Types Packs/Day Years [...] as of this encounter Visit Diagnoses Diagnosis Primary osteoarthritis of right knee Primary localized osteoarthrosis, lower leg documented in this encounter Care Teams Head Bookkeeper Relationship Specialty Start Date End Date Emerita Falcon MD [address] [place] [address] PCP - General Family Medicine 08/12/23 documented as of this encounter
--- OUTSIDE RECORDS SUMMARY | 2024-08-07 10:35 | XMS_ITS | Encounter Summary ---
Author Organization [facility] Address [facility] [place] [address] Care Team Providers Care Foreign Language Professor Name Role Phone Emerita Falcon MD Primary Care Provider [phone]- [phone] Reason for Visit * Reason Comments Back Pain Follow up back pain- STD Encounter Details Date Type Department Care Team (Late st Contact Info) Description 08/18/2023 4:30 PM EST Office Visit Primary Care at [facility] [address] [place] [address] Emerita Falcon MD [address] [facility] [place] [address] Low back pain, non-specific; Tachycardia Social History Tobacco Use Types Packs/Day [...] Sign Reading Time Taken Comments Blood Pressure 118/90 08/18/2023 5:15 PM EST Pulse 110 08/18/2023 5:15 PM EST Temperature 36.8 ??C (98.3 ??F) 08/18/2023 4:37 PM ES T Respiratory Rate - - Oxygen Saturation 98% 08/18/2023 4:37 PM EST Inhaled Oxygen Concentration - - Weight 116.6 kg (257 lb) 08/18/2023 4:37 PM EST Height 180.3 cm (5' 10.98) 08/18/2023 4:[address] Body Mass Index 35.86 08/18/2023 4:37 PM EST documented in this encounter Progress Notes * Emerita Falcon MD - 08/18/2023 4:30 PM EST ID: Demetrio Rivers is a 47 y.o. male Assessment/Plan: Problem List Items Addressed This Visit Low back pain, non-specific Acute on chronic low back pain about 6 weeks so far Progression of numbness in R big toe as well as worsening weakness in R leg MRI showing no evidence of compression but does show edema in L4 and L5 pedicles Vitals concerning for tachycardia and BP initially soft though normal on repeat. No fevers, no IVDU. However I do have concern for possible developing infection? Vs other cause inflammation Discussed options for care at length. Discussed going to the ED vs trying to do an urgent outpatient work up. Shared decision making, he prefers outpatient w/u Will get CBC CMP CRP. Pending results, consider urgent repeat imaging - CT vs MRI Continue supportive cares and pain meds. PT already ordered. Referral to spine clinic already ordered Relevant Orders CBC (with Diff) Comprehensive metabolic panel (non-fasting) EKG 12 Lead CRP, acute inflammation Tachycardia Initially 121 with BP 90 systolic in room. Initial discussion of going to ED however on repeat BP normal and HR 110 RRR on my exam. Smart watch showing possible episodes of afib though rhythm strip appears to have ps Will order ecg to have done as soon as possible Discussed red flags and ED return precautions at length - very low threshold to go if any symptoms or if HR sustained over 120 at home Labs ordered as above Further eval pending ECG Relevant Orders EKG 12 Lead FU next week for close monitoring Patient is aware of signs and symptoms that require follow-up care or emergency care. Patient is in agreement with today's plan. Leaves in stable condition. Will follow-up as discussed or sooner if needed. HPI: # low back pain Chronic low back pain Mid June had a flare of back pain Since then has been getting worse and worse 1st big tow is now completely numb R leg is feeling weak - feels like foot is catching on things when he walks MRI was ordered which showed bulging discs as well as pedicle edema at L4/L5 - did not show stenosis, formen narrowing, or any s/s nerve compression He denies bowel/bladder symptoms Is still doing tylenol, voltaren, baclofen and tramadol - better than nothing but still in significant pain Denies fevers or chills but just doesn't feel good Denies IVDU Episodes of lightheadedness at times + see tachycardia below # tachycardia Smart watch has been notifying him of episodes of tachycardia Upon review, monitor says afib though rhythm strip shown to me does appear to have p waves - thoughnot good quality Has had episodes of lightheadedness - even one episode of LOC 6-8 weeks ago Denies palpations SOB CP Denies any known hx arrhythmias Lab Results Component Value Date HA1C 5.7 (H) 06/08/2023 Lab Results Component Value Date NA 139 06/08/2023 K 3.9 06/08/2023 CL 102 06/08/2023 CO2 23 06/08/2023 BUN 11 06/08/2023 CREATININE 1.14 06/08/2023 GLUCOSE 103 06/08/2023 GLUCFASTING 91 04/15/2022 CALCIUM 9.6 06/08/2023 ESTGFR 80 06/08/2023 Lab Results Component Value Date ALT 40 06/08/2023 AST 34 06/08/2023 ALKPHOS 80 06/08/2023 BILITOT 0.5 06/08/2023 BILIDIR 0.2 11/05/2016 ALBUMIN 4.1 06/08/2023 PROT 7.3 06/08/2023 No results found for: MICROALBUR, [id number] Lipid Panel Lab Results Component Value Date CHLPL 155 05/30/2020 HDL 41 05/30/2020 TRIG 120 05/30/2020 LDLCHOL 90 05/30/2020 Patient Active Problem List Diagnosis Code Primary hypertension I10 Osteoarthritis of right knee M17.11 Tubular adenoma of colon D12.6 Diverticulitis of both small and large intestine without perforation or abscess with bleeding K57.53 Low back pain, non-specific M54.50 Tachycardia R00.0 Current Medication: traMADoL (Ultram) 50 mg tablet baclofen (Lioresal) 20 mg tablet lidocaine (Lidoderm) 5% Adhesive Patch, Medicated allopurinoL (Zyloprim) 100 mg tablet diclofenac (Voltaren) 1 % Gel lisinopriL (Zestril) 40 mg Tablet Allergies Allergen Reactions Bactrim [Sulfamethoxazole-Trimethoprim] Hives and Other (See Comments) Fever, sweating, shortness of breath Physical Exam: BP 118/90 Pulse (!) 110 Temp 36.8 ??C (98.3 ??F) (Temporal) Ht 180.3 cm (5' 10.98) Wt 116.6 kg (257 lb) SpO2 98% BMI 35.86 kg/m?? GEN: awake, alert,non toxic but appears to be in pain HEENT: PERRLA CHEST: clear to auscultation bilaterally, no wheezes, no rales, no rhonchi, no accessory muscle use HEART: tachycardic but regular. No murmurs noted through difficult to appreciate ABD/PEL: protuberant. no distension EXT: no clubbing or cyanosis, no erythema Back: no TTP over spinous processes,mild TTP over bilateral diffuse lowe back. No SI TTP PSYCH/NEURO: appropriate affect and cognition, OX3 Gait abnormal - favors R leg. R leg weak with flexion of hip and knee extension (4/5). L leg 5/5 throughout. Sensation to light touch intact except diminished on R big toe 50 minutes were spent on date of visit, including non-face to face time. documented in this encounter Miscellaneous Notes * Assessment & Plan Note - Emerita Falcon MD - 08/18/2023 5:48 PM EST Associated Problem(s): Tachycardia Initially 121 with BP 90 systolic in room. Initial discussion of going to ED however on repeat BP normal and HR 110 RRR on my exam. Smart watch showing possible episodes of afib though rhythm strip appears to have ps Will order ecg to have done as soon as possible Discussed red flags and ED return precautions at length - very low threshold to go if any symptoms or if HR sustained over 120 at home Labs ordered as above Further eval pending ECG * Assessment & Plan Note - Emerita Falcon MD - 08/18/2023 5:45 PM EST Associated Problem(s): Low back pain, non-specific Acute on chronic low back pain about 6 weeks so far Progression of numbness in R big toe as well as worsening weakness in R leg MRI showing no evidence of compression but does show edema in L4 and L5 pedicles Vitals concerning for tachycardia and BP initially soft though normal on repeat. No fevers, no IVDU. However I do have concern for possible developing infection? Vs other cause inflammation Discussed options for care at length. Discussed going to the ED vs trying to do an urgent outpatient work up. Shared decision making, he prefers outpatient w/u Will get CBC CMP CRP. Pending results, consider urgent repeat imaging - CT vs MRI Continue supportive cares and pain meds. PT already ordered. Referral to spine clinic already ordered documented in this encounter Plan of Treatment Scheduled Orders Name Type Priority Associated Diagnoses Orde r Schedule EKG 12 Lead ECG Routine Low back pain, non-specific Tachycardia Expected: 08/18/2023, Expires: 02/17/2024 documented as of this encounter Results * CRP, acute inflammation (08/19/2023 11:33 AM EST) C-Reactive Protein <3.0 <=4.9 mg/L [facility] Blood 08/19/2023 11:3 3 AM EST 08/19/2023 11:33 AM EST Narrative Resulting Agency Comment Spec In Lab Emerita Falcon MD CHEMISTRY ORDERABL ES [facility] [address] [place] [address] * (ABNORMAL) Comprehensive metabolic panel (non-fasting) (08/19/2023 11:33 AM EST) Glucose 98 65 - 199 mg/dL [facility] Comment:Diabetes: >=200 mg/d L plus symptoms Blood Urea Nitrogen 16 10 - 20 mg/dL [facility] Creatinine 1.30 0.80 - 1.50 mg/dL [facility] Sodium 138 135 - 145 mmol/L [facility] Potassium 4.6 3.5 - 5.0 mmol/L [facility] Comment: Please note: ??Patients with WBC >100,000 may have falsely elevated Potassium levels. ??For accurate Potassium quantification in these patients send serum separator tube (gold top) for subsequent determinations. ??Contact the Clinical Chemistry Laboratory if there are any questions. Chloride 104 98 - 107 mmol/L [facility] Carbon Dioxide 23 22 - 31 mmol/L [facility] Anion Gap 11 5 - 15 mmol/L [facility] Calcium 9.9 8.5 - 10.5 mg/dL [facility] Protein, Total 7.4 6.1 - 8.0 g/dL [facility] Albumin 4.5 3.2 - 5.2 g/dL [facility] Aspartate Aminotransferase 37 0 - 39 unit/L [facility] Alanine Aminotransferase 56(H) 0 - 55 unit/L [facility] Alkaline Phosphatase 79 40 - 130 unit/L [facility] Bilirubin, Total 0.7 0.2 - 1.3 mg/dL [facility] Est Glomerular Filtration Rate 69 >=60 mL/min/1. 73 m?? [facility] Comment: This patient's estimated GFR was [...] Lab Emerita Falcon MD CHEMISTRY ORDERABL ES [facility] [address] [address] documented in this encounter Visit Diagnoses Diagnosis Low back pain, non-specific Tachycardia Tachycardia, unspecified documented in this encounter Care Teams Foreign Language Professor Relationship Specialty Start Date End Date Emerita Falcon MD [address] [facility] [address] PCP - General Family Medicine 08/12/23 documented as of this encounter
--- OUTSIDE RECORDS SUMMARY | 2024-08-07 10:35 | XMS_ITS | Encounter Summary ---
Author Organization [facility] Address [facility] [place] [address] Care Team Providers Care Turret Lathe Operator Name Role Phone Emerita Falcon MD Primary Care Provider [phone]- [phone] Encounter Details Date Type Department Care Team (Latest Contact Info) Description 08/18/2023 Travel Social History Tobacco Use Types Packs/Day [...] on filedocumented in this encounter Care Teams Turret Lathe Operator Relationship Specialty Start Date End Date Emerita Falcon MD [address] [place] [address] PCP - General Family Medicine 08/12/23 documented as of this encounter
--- OUTSIDE RECORDS SUMMARY | 2024-08-07 10:35 | XMS_ITS | Encounter Summary ---
Author Organization [facility] Address One [facility] [place] [address] Care Team Providers Care Small Stock Facer Name Role Phone Belkys Houston MD Primary Care Provider [phone] Encounter Details Date Type Department Care Team (Latest Contact Info) Description 07/12/2023 Travel Social History Tobacco Use Types Packs/Day [...] on filedocumented in this encounter Care Teams Small Stock Facer Relationship Specialty Start Date End Date Belkys Houston MD [address] [place] [id number] PCP - General Family Medicine 06/21/22 08/11/23 documented as of this encounter
--- OUTSIDE RECORDS SUMMARY | 2024-08-07 10:35 | XMS_ITS | Encounter Summary ---
Author Organization [facility] [address] Care Team Providers Care Gas Plant Dispatcher Name Role Phone Belkys Houston MD Primary Care Provider Reason for Referral * Consultation (Routine) - Closed Specialty Diagnoses / Procedures Referred By Contac t Referred To Contact [facility] Diagnoses Bulging lumbar disc Amber Eastman APRN [address] [place] [id number] [facility] [place] [address] Referral ID Status Reason Start Date Expiration Date V isits Requested Visits Authorized [id number] Closed Consult, Test & Treat 07/28/2023 07/27/2024 1 1 Reason for Visit * Reason Comments Follow-up Encounter Details Date Type Department Care Team ([facility] Contact Info) Description 07/28/2023 3:55 PM EST Office Visit Primary Care at [address] [address] Amber Eastman APRN [address] [place] [address] Lumbar radiculopathy, right; Bulging lumbar disc; Hypertension, unspecified type Social History Tobacco Use Types Packs/Day Years [...] Sign Reading Time Taken Comments Blood Pressure 138/84 07/28/2023 3:53 PM EST Pulse 117 07/28/2023 3:53 PM EST Temperature 36.4 ??C (97.5 ??F) 07/28/2023 3:53 PM ES T Respiratory Rate - - Oxygen Saturation 98% 07/28/2023 3:53 PM EST Inhaled Oxygen Concentration - - Weight 116.6 kg (257 lb) 07/28/2023 3:53 PM EST Height 180.3 cm (5' 10.98) 07/28/2023 3:[address] Body Mass Index 35.86 07/28/2023 3:53 PM EST documented in this encounter Progress Notes * Amber Eastman, HAIRSPRING FABRICATION SUPERVISOR - 07/28/2023 3:55 PM EST ID: Demetrio Rivers is a 47 y.o. male Assessment/Plan: 1. Lumbar radiculopathy, right Patient continues to have lumbar radiculopathy to right. He reports that his pain has slightly improved with the use of as needed tramadol as well as baclofen. He does report his pain currently is a 3-4 out of 10 and at its worst continues to be a 10 out of 10. He does report that it is difficult for him to get into a comfortable position at times. He reports that he has found that heat aggravates his back so he has been using ice. He does report that the pain continues to be sharp and stabbingand will radiate all the way down to his foot. He reports that he is able to walk a short distance on flat ground but if there is any change in the terrain or if he needs to walk up or down stairs ora hill he has increased pain. Patient noted to be ambulating with a cane this visit. He does reportthat it is difficult for him to find a comfortable position at times at bending and twisting exacerbate his pain. He has been unable to return to work as he needs to be able to lift and at this time he cannot safely do this without excruciating. At this time will provide patient with a work note. Rakan clay is to follow-up with PCP or [facility] in 3 weeks or sooner if lifting restriction can be lifted. MRI results also reviewed with patient this visit as they have not been reviewed. MRI revealed that the patient did have multiple bulging disks. Educated bided that bulging disc usually also with conservative management, rest as well as physical therapy. Patient verbalized understanding. At this time due to patient's significant pain will make referral to pain and spine center. During our last visita referral was placed physical therapy and the patient did not do with this. I educated the patienton the importance of calling either today or tomorrow to get a physical therapy appointment. Patient verbalized understanding. Patient is to follow-up with PCP or [facility] in 3 weeks or sooner for back pain 2. Bulging lumbar disc See above. - Referral to Pain and Spine Center (Internal only) 3. Hypertension, unspecified type Blood pressure noted to be in good control at time of office visit today. Blood pressure noted to be 138/84. Patient reports that he is taking his medication as prescribed. HPI the patient is a very pleasant 47-year-old male seen in office today to follow-up on lumbar radiculopathy. Past medical history noted for hypertension, osteoarthritis, diverticulitis. he reports that his pain is slowly improving he is still unable to ambulate for long distances. He reports thathe has been unable to return to work as he will need to be able to lift and bend and is unable to do this without significant pain. This note was partially generated using [employer] voice recognition system, and there may be some incorrect words, spellings, and punctuation that were not noted in checking the note before saving. ROS: Review of Systems Constitutional: Negative for chills, fever, malaise/fatigue and weight loss. Respiratory: Negative for cough, shortness of breath and wheezing. Cardiovascular: Negative for chest pain and palpitations. Gastrointestinal: Negative for abdominal pain, blood in stool, constipation, diarrhea, heartburn, nausea and vomiting. Genitourinary: Negative for dysuria, frequency, hematuria and urgency. Musculoskeletal: Positive for back pain and joint pain. Negative for falls. Neurological: Positive for tingling. Negative for dizziness, loss of consciousness, weakness and headaches. Psychiatric/Behavioral: Negative for depression and suicidal ideas. The patient is not nervous/anxious. Patient Active Problem List Diagnosis Code Primary hypertension I10 Osteoarthritis of right knee M17.11 Tubular adenoma of colon D12.6 Diverticulitis of both small and large intestine without perforation or abscess with bleeding K57.53 MEDICATIONS: Current Outpatient Medications on File Prior to Visit Medication Sig Dispense Refill traMADoL (Ultram) 50 mg tablet Take 1 tablet by mouth every 8 hours as needed for Pain. 21 tablet 0 baclofen (Lioresal) 20 mg tablet Take 1 tablet by mouth 3 times daily as needed. 60 tablet 0 lidocaine (Lidoderm) 5% Adhesive Patch, Medicated Place 1 patch onto affected area for 12 hours then remove for 12 hours 15 patch 3 allopurinoL (Zyloprim) 100 mg tablet Take 1 tablet by mouth daily. 90 tablet 3 diclofenac (Voltaren) 1 % Gel Apply topically 4 times daily as needed. To bilateral knees 450 g 5 omeprazole (PriLOSEC) 40 mg Capsule, Delayed Release(E.C.) Take 1 capsule by mouth daily. Take at least 30 min prior to eating/drinking. (Patient not taking: Reported on 12/17/2022) 90 capsule 1 lisinopriL (Zestril) 40 mg Tablet Take 1 tablet by mouth daily. 90 tablet 3 No current facility-administered medications on file prior to visit. ALLERGIES: Allergies Allergen Reactions Bactrim [Sulfamethoxazole-Trimethoprim] Hives and Other (See Comments) Fever, sweating, shortness of breath VITALS: Vitals: 07/28/23 1553 BP: 138/84 BP Location (NBP): Left arm Patient Position: Sitting BP Cuff Sizes: Large Adult (32-43 cm) Pulse: (!) 117 Temp: 36.4 ??C (97.5 ??F) TempSrc: Temporal SpO2: 98% Weight: 116.6 kg (257 lb) Height: 180.3 cm (5' 10.98) Physical Exam Vitals reviewed. Constitutional: General: He is not in acute distress. Appearance: Normal appearance. He is not ill-appearing, toxic-appearing or diaphoretic. HENT: Head: Normocephalic and atraumatic. Eyes: Conjunctiva/sclera: Conjunctivae normal. Cardiovascular: Rate and Rhythm: Normal rate and regular rhythm. Pulses: Normal pulses. Heart sounds: Normal heart sounds. No murmur heard. No friction rub. No gallop. Pulmonary: Effort: Pulmonary effort is normal. No respiratory distress. Breath sounds: Normal breath sounds. No stridor. No wheezing, rhonchi or rales. Chest: Chest wall: No tenderness. Musculoskeletal: Lumbar back: Spasms and tenderness present. No swelling, edema, deformity, signs of trauma, lacerations or bony tenderness. Decreased range of motion. No scoliosis. Skin: General: Skin is warm and dry. Capillary Refill: Capillary refill takes less than 2 seconds. Neurological: General: No focal deficit present. Mental Status: He is alert and oriented to person, place, and time. Psychiatric: Attention and Perception: Attention and perception normal. Mood and Affect: Mood and affect normal. Speech: Speech normal. Behavior: Behavior normal. Behavior is cooperative. Thought Content: Thought content normal. Cognition and Memory: Cognition normal. Judgment: Judgment normal. RESULTS: No results found for this or any previous visit (from the past 168 hour(s)). documented in this encounter Plan of Treatment Scheduled Referrals Name Type Priority Associated Diagnoses Orde r Schedule Referral to [facility] and Spine Center (Internal only) Outpatient Referral Routine Bulging lumbar disc Ordered: 07/28/2023 documented as of this encounter Visit Diagnoses Diagnosis Lumbar radiculopathy, right Bulging lumbar disc Displacement of lumbar intervertebral disc without myelopathy Hypertension, unspecified type documented in this encounter Care Teams Gas Plant Dispatcher Relationship Specialty Start Date End Date Belkys Houston MD [address] [place] [address] [place] [address] PCP - General Family Medicine 06/21/22 08/11/23 documented as of this encounter
--- OUTSIDE RECORDS SUMMARY | 2024-08-07 10:35 | XMS_ITS | Encounter Summary ---
Author Organization [facility] Address [facility] [place] [address] Care Team Providers Care Director Quality Assurance Name Role Phone Emerita Falcon MD Primary Care Provider [phone] Reason for Visit * Physical Therapy (Routine) - Closed Specialty Diagnoses / Procedures Referred By Contac t Referred To Contact Physical Therapy Diagnoses Lumbar back pain Amber Eastman, UMBRELLA TIPPER MACHINE [address] [place] [id number] [facility] [address] [place] [phone] Referral ID Status Reason Start Date Expiration Date V isits Requested Visits Authorized [id number] Closed Evaluate and Treat 07/07/2023 07/06/2024 20 20 Encounter Details Date Type Department Care Team (Late st Contact Info) Description 09/16/2023 2:00 PM EST Office Visit Physical Therapy at [address] [address] Melia Baez, ASSEMBLING MACHINE OPERATOR Low back pain, non-specific Social History Tobacco Use Types Packs/Day Years Used Date Smoking Tobacco: Former Cigarettes - 2021 Passive Smoke Exposure: Current Smokeless Tobacco: Never Comments:Doesn't smoke durin g the week. 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 male to address 1. Low back pain, non-specific S: I feel pretty good. I feel like I am loosening up. I did the inversion table for 3min. @ 35deg. I am going to start going to the gym . I had covid last week. O: nu-step x5min. Elliptical x5min. Gait with marching Side stepping with BTB at ankles (HEP Monster walks forward and backward (HEP) A: pt spoke today re: going to [employer] to start and exercise program. He reported today thathe has been feeling better and has had improved mobility P: continue per plan Total Timed Code Treatment: 30 minutes Total Treatment Time: 30 minutes Melia Baez PTA documented in this encounter Plan of Treatment Not on file documented as of this encounter Visit Diagnoses Diagnosis Low back pain, non-specific documented in this encounter Care Teams Director Quality Assurance Relationship Specialty Start Date End Date Emerita Falcon MD [address] [facility] [place] [address] PCP - General Family Medicine 08/12/23 documented as of this encounter
--- OUTSIDE RECORDS SUMMARY | 2024-08-07 10:35 | XMS_ITS | Encounter Summary ---
Author Organization [facility] Address One [facility] [place] [address] Care Team Providers Care Road Driver Name Role Phone Emerita Falcon MD Primary Care Provider +1- [phone] Reason for Visit * Physical Therapy (Routine) - Closed Specialty Diagnoses / Procedures Referred By Contac t Referred To Contact Physical Therapy Diagnoses Lumbar back pain Amber Eastman, FACILITY ENVIRONMENTAL TECHNICIAN [address] [place] [address] [facility] [address] [place] [address] Referral ID Status Reason Start Date Expiration Date V isits Requested Visits Authorized [id number] Closed Evaluate and Treat 07/07/2023 07/06/2024 20 20 Encounter Details Date Type Department Care Team (Late st Contact Info) Description 09/23/2023 2:00 PM EST Office Visit Physical Therapy at [address] [address] Carson Mittal, PT Low back pain, non-specific Social History Tobacco Use Types Packs/Day Years Used Date Smoking Tobacco: Former Cigarettes - 2021 Passive Smoke Exposure: Current Smokeless Tobacco: Never Comments:Doesn't smoke durin g the week. 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 male to address 1. Low back pain, non-specific S:The patient reports that he is doing well; he is no longer having an LE pain and he has been going to the gym a few days a week. O: Treatment consisting of: Ther ex- Nu-step x5min. Fwd and lateral rolling with ball in sitting Pallof press 7# strap Sit to stand 2x10 4 KG LTR on ball A: The patient has been compliant with his gym program and is generally doing well with only LBP asa residual symptom. PT will continue to work on loading his posterior trunk as he does have limitedtolerance to these activities. P: continue per plan Total Timed Code Treatment: 30 minutes Total Treatment Time: 30 minutes Carson Mittal PT documented in this encounter Plan of Treatment Not on file documented as of this encounter Visit Diagnoses Diagnosis Low back pain, non-specific documented in this encounter Care Teams Road Driver Relationship Specialty Start Date End Date Emerita Falcon MD [address] [place] [address] PCP - General Family Medicine 08/12/23 documented as of this encounter
--- OUTSIDE RECORDS SUMMARY | 2024-08-07 10:35 | XMS_ITS | Encounter Summary ---
Author Organization Count Includes [facility] Address [facility] [place] [address] Care Team Providers Care Glass Fitter Name Role Phone Emerita Falcon MD Primary Care Provider +1- [phone] Encounter Details Date Type Department Care Team (Late st Contact Info) Description 08/19/2023 Telephone Primary Care at [address] [address] Debby Rasmussen Social History Tobacco [...] * Telephone Encounter - Debby Rasmussen - 08/19/2023 9:04 AM EST Faxed Short-term D claim to [facility] [phone]; receipt acknowledged; sent to [facility] documented in this encounter Plan of Treatment Not on file documented as of this encounter Visit Diagnoses Not on filedocumented in this encounter Care Teams Glass Fitter Relationship Specialty Start Date End Date Emerita Falcon MD [address] [place] [address] PCP - General Family Medicine 08/12/23 documented as of this encounter
--- OUTSIDE RECORDS SUMMARY | 2024-08-07 10:35 | XMS_ITS | Encounter Summary ---
Author Organization Counts Include [facility] Address One [facility] [place] [address] Care Team Providers Care Motor Room Controller Name Role Phone Belkys Houston MD Primary Care Provider [phone] Encounter Details Date Type Department Care Team (Latest Contact Info) Description 07/07/2023 Travel Social History Tobacco Use Types Packs/Day [...] on filedocumented in this encounter Care Teams Motor Room Controller Relationship Specialty Start Date End Date Belkys [place] MD [address] [place] [address] PCP - General Family Medicine 06/21/22 08/11/23 documented as of this encounter
--- OUTSIDE RECORDS SUMMARY | 2024-08-07 10:35 | XMS_ITS | Encounter Summary ---
Author Organization [facility] Address One [facility] [place] [address] Care Team Providers Care Board Member Name Role Phone Emerita Falcon MD Primary Care Provider +1- [phone] Reason for Visit * Physical Therapy (Routine) - Closed Specialty Diagnoses / Procedures Referred By Contac t Referred To Contact Physical Therapy Diagnoses Lumbar back pain Amber Eastman, SPOUTING INSTALLER [address] [place] [address] [facility] [address] [place] [address] Referral ID Status Reason Start Date Expiration Date V isits Requested Visits Authorized [id number] Closed Evaluate and Treat 07/07/2023 07/06/2024 20 20 Encounter Details Date Type Department Care Team (Late st Contact Info) Description 10/21/2023 3:30 PM EST Office Visit Physical Therapy at [address] [address] Carson Mittal, PT Low back pain, non-specific Social History Tobacco Use Types Packs/Day Years Used Date Smoking Tobacco: Former Cigarettes - 2021 Passive Smoke Exposure: Current Smokeless Tobacco: Never Comments:Doesn't smoke durin g the week. 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 male to address 1. 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 be indep with care home home exercise and/or gym program to sustain [...] 3 pain sx in his lower back S: The patient is doing well but he reports soreness after he has returned to work; he has not worked in over 3 months and he has returned to over 50 hours a week. O: Treatment consisting of: Ther ex- Nu-step x5min. DKC on ball LTR on ball Open book stretch bilaterally Hip flexor stretch Seated flexion on ball A: The patient is doing well and plan on re-starting a few more regular appointments to continue working on core stability and tolerance to forward bending tasks. P: Continue per plan Total Timed Code Treatment: 30 minutes Total Treatment Time: 30 minutes Carson Mittal PT documented in this encounter Plan of Treatment Not on file documented as of this encounter Visit Diagnoses Diagnosis Low back pain, non-specific documented in this encounter Care Teams Board Member Relationship Specialty Start Date End Date Emerita Falcon MD [address] [place] [address] PCP - General Family Medicine 08/12/23 documented as of this encounter
--- OUTSIDE RECORDS SUMMARY | 2024-08-07 10:35 | XMS_ITS | Encounter Summary ---
Author Organization [facility] Address One [facility] [place] [address] Care Team Providers Care Technical Delivery Manager Name Role Phone Emerita Falcon MD Primary Care Provider +1- [phone] Encounter Details Date Type Department Care Team (Latest Contact Info) Description 10/04/2023 Travel Social History Tobacco Use Types Packs/Day Years Used Date Smoking Tobacco: Former Cigarettes 2021 Passive Smoke Exposure: Current Smokeless Tobacco: Never Comments:Doesn't smoke durin g the week. 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
--- OUTSIDE RECORDS SUMMARY | 2024-08-07 10:35 | XMS_ITS | Clinical Summary ---
Author Organization [facility] Address [facility] [place] [address] Care Team Providers Care Clock And Watch Hands Mounter Name Role Phone Emerita Falcon MD Primary Care Provider +1- [phone] Allergies Active Allergy Reactions Criticality Noted Date Comments Sulfamethoxazole-Tri methoprim Hives,Other (See Comments) 09/07/2016 Fever, sweating, shortness of breath Medications Medication Sig Dispensed Refills Start Date End Date Status diclofenac (Voltaren) 1 % GelIndications:Chroni c pain of left knee,Chronic pain of right knee Apply topically 4 times daily as needed. To bilateral knees 450 g 5 12/17/2022 Active allopurinoL (Zyloprim) 100 mg tabletIndications:Gou t of right ankle, unspecified cause, unspecified chronicity Take 1 tablet by mouth daily. 90 tablet 3 06/16/2023 Active lidocaine (Lidoderm) 5% Adhesive Patch, MedicatedIndications: Lumbar back pain Place 1 patch onto affected area for 12 hours then remove for 12 hours 15 patch 3 07/07/2023 Active lisinopriL (Zestril) 40 mg tabletIndications:Annie rush hypertension TAKE 1 TABLET BY MOUTH EVERY DAY 90 tablet 3 12/03/2023 Active meloxicam (Mobic) 15 mg tablet TAKE 1 TABLET BY MOUTH EVERY DAY NEEDED FOR PAIN 30 tablet 2 12/08/2023 Active Active Problems Problem Noted Date Diagnosed Date Class 2 obesity due to exces s calories with body mass index (BMI) of 36.0 to 36.9 in adult 10/05/2023 Assessment & Plan (10/05/2023 10:08 AM EST): Pt committed to significantly changing diet and exercise routine - has already started daily gym exercises and short running exercises Will follow up on lifestyle changes at upcoming physical Low back pain, non-specific 08/18/2023 Assessment & Plan (10/05/2023 10:06 AM EST): Acute on chronic low back pain about 12 weeks so far. 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 Referral to spine clinic already ordered Tachycardia 08/18/2023 Assessment & Plan (08/25/2023 1:38 PM EST): Periodic episodes of tachycardia caught by home smart watch. cannot interpret ecg through josse. ECG after last apt did not catch episodes. holter monitor ordered and pending Reviewed red flags and ED return precautions. Encouraged to go if having any symptoms during episodes of tachycardia so we can diagnose rhythm and initiate treatment Assessment & Plan (08/18/2023 5:48 PM EST): Initially 121 with BP 90 systolic in [...] ordered as above Further eval pending ECG Primary hypertension 09/17/2022 Osteoarthritis of right knee 09/17/2022 Tubular adenoma of colon 09/17/2022 Diverticulitis of both small and large intestine without perforation or abscess with bleeding 09/17/2022 Family History Medical History Relation Comments Cancer Brother Alcohol Use Disorder Father Diabetes Father Hyperlipidemia Mother No Known Problems Sister Relation Status Comments Brother Alive Father Mother Alive Sister Alive Social History Tobacco Use Types Packs/Day Years Used Date Smoking Tobacco: Former Cigarettes 2021 Passive Smoke Exposure: Current Smokeless Tobacco: Never Tobacco Cessation:Counseling Given: Not Answered Comments:Doesn't smoke during the week. 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 Alcohol Use [...] on file Sexual Orientation Not on file Last Filed Vital Signs Vital Sign Reading Time Taken Comments Blood Pressure 136/84 10/04/2023 4:18 PM EST Pulse 112 10/04/2023 4:18 PM EST Temperature 36.7 ??C (98.1 ??F) 10/04/2023 4:18 PM ES T Respiratory Rate 18 12/07/2022 1:40 AM EDT Oxygen Saturation 96% 10/04/2023 4:18 PM EST Inhaled Oxygen Concentration - - Weight 120.3 kg (265 lb 3.2 oz) 10/04/2023 4:18 PM EST Height 180.3 cm (5' 11) 08/31/2023 1:33 PM EST Body Mass Index 36.99 08/31/2023 1:33 PM EST Plan of Treatment Health Maintenance Due Date Last Done Comments CT Colonography 1976 FIT DNA 1976 FIT 1975 Sigmoidoscopy 1975 Pneumococcal Vaccine: At-Ris k 5-64yrs (1 of 2 - PCV) 1982 HIV screen 1994 Hepatitis B vaccine (0-59 yrs) (1) 12/14/1995 Tetanus/Diphtheria/Pertussis Vaccines (1 - Tdap) 12/14/1995 Covid-19 Vaccine ( - 2023-2 5 season) 2024 Influenza (Flu) vaccine (1 o f 1 - Influenza standard series) 05/20/2024 Lipid Screening 05/30/2025 05/30/2020 Colonoscopy 10/25/2025 10/25/2022, 02/2023, 05/06/2020 Colorectal Cancer Screening 10/25/2025 Diabetes Screening (HgbA1C o r Glucose) 08/19/2026 08/19/2023, 06/08/2023, 06/08/2023, Additional history exists Sigmoidoscopy (10 year) with FIT yearly 10/25/2032 10/25/2022, 10/25/2022 Hepatitis C Screening Completed 11/05/2016 Procedures Procedure Name Priority Date/Time Associated Diagnosis Comments COMPREHENSIVE METABOLIC PANEL Routine 08/19/2023 11:33 AM EST Low back pain, non-specific COLONOSCOPY Routine 10/25/2022 12:33 PM EST EXTERNAL LIPID LAB RESULTS PANEL Routine 05/30/2020 HEPATITIS C ANTIBODY Routine 11/05/2016 11:16 AM EST Elevated LFTs from Last 3 Months or Most Recently Relevant to Health Maintenance Results * (ABNORMAL) Comprehensive metabolic panel (non-fasting) (08/19/2023 11:33 AM EST) Glucose 98 65 - 199 mg/dL [facility] Comment:Diabetes: >=200 mg/d L plus symptoms Blood Urea Nitrogen 16 10 - 20 mg/dL [facility] Creatinine 1.30 0.80 - 1.50 mg/dL [facility] Sodium 138 135 - 145 mmol/L [facility] Potassium 4.6 3.5 - 5.0 mmol/L [facility] Comment: Please note: ??Patients with WBC >100,000 may have falsely elevated Potassium levels. ??For accurate Potassium quantification in these patients send serum separator tube (gold top) for subsequent determinations. ??Contact the Clinical Chemistry Laboratory if there are any questions. Chloride 104 98 - 107 mmol/L [facility] Carbon Dioxide 23 22 - 31 mmol/L [facility] Anion Gap 11 5 - 15 mmol/L [facility] Calcium 9.9 8.5 - 10.5 mg/dL [facility] Protein, Total 7.4 6.1 - 8.0 g/dL [facility] Albumin 4.5 3.2 - 5.2 g/dL [facility] Aspartate Aminotransferase 37 0 - 39 unit/L [facility] Alanine Aminotransferase 56(H) 0 - 55 unit/L [facility] Alkaline Phosphatase 79 40 - 130 unit/L [facility] Bilirubin, Total 0.7 0.2 - 1.3 mg/dL [facility] Est Glomerular Filtration Rate 69 >=60 mL/min/1. 73 m?? [facility] Comment: This patient's estimated GFR [...] Lab Emerita Falcon MD CHEMISTRY ORDERABL ES [facility] [address] [place] [address] * COLONOSCOPY (10/25/2022 12:33 PM EST) COLONOSCOPY ___ Patient Name: Demetrio Rivers Procedure Date: 10/25/2022 12:33 PM ?Attending MD: Maite Barraza MD Date of : 1975 ? Order #: [id number] Age: 46 ?Instrument Name: [id number] ___ Procedure: ? Colonoscopy Indications: ? Screening for colorectal malignant ? neoplasm, Screening in patient at ? increased risk: Colorectal cancer ? in mother before age 60 Providers: ? Maite Barraza MD, Shakila ? TETE Murillo, Laurie Mendes Referring MD: ?Belkys Rosemarie Medicines: ? Monitored Anesthesia Care Complications: ? No immediate complications. ? Estimated blood loss: Minimal. ___ Procedure: ? Pre-Anesthesia Assessment: ? - Prior to the procedure, a History ? and Physical was performed, and ? patient medications and allergies ? were reviewed. The patient's ? tolerance of previous anesthesia ? was also reviewed. The risks and ? benefits of the procedure and the ? sedation options and risks were ? discussed with the patient. All ? questions were answered, and ? informed consent was obtained. ? Prior Anticoagulants: The patient ? has taken no anticoagulant or ? antiplatelet agents. ASA Grade ? Assessment: III - A patient with ? severe systemic disease. After ? reviewing the risks and benefits, ? the patient was deemed in ? satisfactory condition to undergo ? the procedure. ? - The risks and benefits of the ? procedure and the sedation options ? and risks were discussed with the ? patient. All questions were ? answered and informed consent was ? obtained. ? - Patient identification and ? proposed procedure were verified ? prior to the procedure by the ? physician, the nurse, the ? anesthesiologist and the ? csr technician. The procedure was ? verified in the endoscopy suite. ? The procedure, indications, ? benefits, risks and alternatives ? were explained to the patient. ? Specifically discussed were ? potential complications including, ? but not limited to, bleeding, ? perforation, infection, missing a ? cancer, and adverse medication ? reactions. The patient was placed ? in the left lateral decubitus ? position, and a digital rectal exam ? was performed. The Colonoscope was ? inserted in the anus and under ? direct visualization, advanced to ? the terminal ileum. Careful ? inspection was made as the ? colonoscope was withdrawn with ? double examination of the ascending ? colon. The colonoscopy was ? performed without difficulty. The ? patient tolerated the procedure ? well. The quality of the bowel ? preparation was good. ? Scope Withdrawal Time: 0 hours 23 minutes 48 seconds Findings: ? The perianal and digital rectal examinations were ? normal. ? The terminal ileum appeared normal. ? A 10 mm polyp was found in the cecum. The polyp was ? flat. The polyp was removed with a cold snare. ? Resection and retrieval were complete. ? A 4 mm polyp was found in the descending colon. The ? polyp was flat. The polyp was removed with a cold ? snare. Resection and retrieval were complete. ? Five flat, pedunculated and sessile polyps were found ? in the sigmoid colon. The polyps were 5 to 8 mm in ? size. These polyps were removed with a cold snare. ? Resection and retrieval were complete. ? Many small and large-mouthed diverticula were found ? in the sigmoid colon. ? Internal hemorrhoids were found during retroflexion. ? The hemorrhoids were medium-sized. ? Impression: ?- The examined portion of the ileum ? was normal. ? - One 10 mm polyp in the cecum, ? removed with a cold snare. Resected ? and retrieved. ? - One 4 mm polyp in the descending ? colon, removed with a cold snare. ? Resected and retrieved. ? - Five 5 to 8 mm polyps in the ? sigmoid colon, removed with a cold ? snare. Resected and retrieved. ? - Diverticulosis in the sigmoid ? colon. ? - Internal hemorrhoids. Recommendation: ?- Discharge patient to home (with ? escort). ? - High fiber diet. ? - Continue present medications. ? - Await pathology results. ? - Repeat colonoscopy date to be ? determined after pending pathology ? results are reviewed for ? surveillance based on pathology ? results. ? - Use daily fiber, for example ? Citrucel, Fibercon, Konsyl or ? Metamucil. ? Procedure Code(s): ? --- Professional --- ? 84353, Colonoscopy, flexible; with ? removal of tumor(s), polyp(s), or ? other lesion(s) by snare technique Diagnosis Code(s): ? --- Professional --- ? Z12.11, Encounter for screening for ? malignant neoplasm of colon ? Z80.0, Family history of malignant ? neoplasm of digestive organs ? K64.8, Other hemorrhoids ? D12.0, Benign neoplasm of cecum ? D12.4, Benign neoplasm of ? descending colon ? D12.5, Benign neoplasm of sigmoid ? colon ? K57.30, Diverticulosis of large ? intestine without perforation or ? abscess without bleeding ? --- Technical --- ? Z12.11, Encounter for screening for ? malignant neoplasm of colon ? Z80.0, Family history of malignant ? neoplasm of digestive organs ? K64.8, Other hemorrhoids ? D12.0, Benign neoplasm of cecum ? D12.4, Benign neoplasm of ? descending colon ? D12.5, Benign neoplasm of sigmoid ? colon ? K57.30, Diverticulosis of large ? intestine without perforation or ? abscess without bleeding CPT copyright 2020 [employer]. All rights reserved. The codes documented in this report are preliminary and upon medical coder review may be revised to meet current compliance requirements. Maite Barraza MD Maite Barraza MD 10/25/2022 2:02:02 PM This report has been signed electronically. Number of Addenda: 0 PROVATION 10/25/2022 12:3 3 PM EST Maite Barraza MD GENERAL SURGICAL ORD ERABLES PROVATION * Lipid External Results (05/30/2020) Cholesterol, Total 155 Comment:PLEASE SEE SCANNED I N REPORT HDL Cholesterol 41 LDL Cholesterol 90 Triglyceride 120 05/30/2020 Historical Provider POINT OF CARE SILKE T ORDERABLES * Hepatitis C Antibody (11/05/2016 11:16 AM EST) Hepatitis C Antibody Negative Negative [facility] Blood specimen (specimen) 11/05/2016 11:16 AM EST 11/05/2016 11:31 AM EST Narrative Resulting Agency Comment Spec In Lab Shola Ramirez MD CHEMISTRY ORDERABLES [facility] [place] [address] from Last 3 Months or Most Recently Relevant to Health Maintenance Care Teams Clock And Watch Hands Mounter Relationship Specialty Start Date End Date Emerita Falcon MD [address] [facility] [place] [address] PCP - General Family Medicine 08/12/23
--- OUTSIDE RECORDS SUMMARY | 2024-08-07 10:35 | XMS_ITS | Encounter Summary ---
Author Organization [facility] Address One [facility] [place] [address] Care Team Providers Care Vocational Services Specialist Name Role Phone Emerita Falcon MD Primary Care Provider +1- [phone] Encounter Details Date Type Department Care Team (Latest Contact Info) Description 08/26/2023 2:13 PM EST - 08/26/2023 11:59 PM EST Hospital Encounter Non-Invasive Cardiology at [address] [address] Emerita Falcon MD [address] [place] [address] [id number] Tachycardia Discharge Disposition: Home Social History Tobacco Use Types Packs/Day Years [...] on file documented as of this encounter Medications at Time of Discharge Medication Sig Dispensed Refills Start Date End Date lidocaine (Lidoderm) 5% Adhesive Patch, MedicatedIndications:Viri mbar back pain Place 1 patch onto affected area for 12 hours then remove for 12 hours 15 patch 3 07/07/2023 allopurinoL (Zyloprim) 100 mg tabletIndications:Gout of right ankle, unspecified cause, unspecified chronicity Take 1 tablet by mouth daily. 90 tablet 3 06/16/2023 diclofenac (Voltaren) 1 % GelIndications:Chronic pain of left knee,Chronic pain of right knee Apply topically 4 times daily as needed. To bilateral knees 450 g 5 12/17/2022 baclofen (Lioresal) 20 mg tabletIndications:Lumba r radiculopathy, right Take 1 tablet by mouth 3 times daily as needed. 60 tablet 07/12/2023 08/31/2023 lisinopriL (Zestril) 40 mg TabletIndications:Prima ry hypertension Take 1 tablet by mouth daily. 90 tablet 3 09/17/2022 12/03/2023 documented as of this encounter Plan of Treatment Not on file documented as of this encounter Procedures Procedure Name Priority Date/Time Associated Diagnosis Comments HOLTER MONITOR 48 HOUR Routine 09/07/2023 10:12 AM EST Tachycardia documented in this encounter Results * Holter Monitor 48hr [...] encounter Visit Diagnoses Diagnosis Tachycardia Tachycardia, unspecified documented in this encounter Care Teams Vocational Services Specialist Relationship Specialty Start Date End Date Emerita Falcon MD [address] [place] [address] PCP - General Family Medicine 08/12/23 documented as of this encounter
--- OUTSIDE RECORDS SUMMARY | 2024-08-07 10:35 | XMS_ITS | Encounter Summary ---
Author Organization [facility] Address One [facility] [place] [address] Care Team Providers Care Apron Trimmer Name Role Phone Emerita Falcon MD Primary Care Provider +1- [phone] Encounter Details Date Type Department Care Team (Latest Contact Info) Description 08/24/2023 Travel Social History Tobacco Use Types Packs/Day [...] on filedocumented in this encounter Care Teams Apron Trimmer Relationship Specialty Start Date End Date Emerita Falcon MD [address] [place] [address] PCP - General Family Medicine 08/12/23 documented as of this encounter
--- OUTSIDE RECORDS SUMMARY | 2024-08-07 10:35 | XMS_ITS | Encounter Summary ---
Author Organization [facility] Address [facility] [place] [address] Care Team Providers Care Mechanical Manufacturing Technician Name Role Phone Emerita Falcon MD Primary Care Provider [phone]- [phone] Reason for Visit * Reason Comments Establish Care Right sided low back pain and knee pain * Consultation (Routine) - Closed Specialty Diagnoses / Procedures Referred By Contac t Referred To Contact [facility] Diagnoses Bulging lumbar disc Amber Eastman, INTERMEDIATE ACCOUNTANT [address] [facility] [place] [address] [facility] [address] [place] [address] Referral ID Status Reason Start Date Expiration Date V isits Requested Visits Authorized [id number] Closed Consult, Test & Treat 07/28/2023 07/27/2024 1 1 Encounter Details Date Type Department Care Team (Late st Contact Info) Description 08/31/2023 1:30 PM EST Office Visit Pain Management at [facility] [address] [place] [address] Manoj Douglas MD [address] [facility] [place] [address] Lumbar strain, initial encounter; Chronic pain syndrome; Radiculopathy of lumbar region Social History Tobacco Use Types Packs/Day Years Used Date Smoking Tobacco: Former Cigarettes - 2021 Passive Smoke Exposure: Current Smokeless Tobacco: Never Tobacco Cessation:Counseling Given: Not Answered Comments:Doesn't smoke during the week. 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 Alcohol Use [...] Sign Reading Time Taken Comments Blood Pressure 133/85 08/31/2023 1:33 PM EST Pulse 105 08/31/2023 1:33 PM EST Temperature - - Respiratory Rate - - Oxygen Saturation 95% 08/31/2023 1:33 PM EST Inhaled Oxygen Concentration - - Weight 120.4 kg (265 lb 6.4 oz) 08/31/2023 1:33 PM EST Height 180.3 cm (5' 11) 08/31/2023 1:33 PM EST Body Mass Index 37.02 08/31/2023 1:33 PM EST documented in this encounter Progress Notes * Manoj Douglas MD - 08/31/2023 1:30 PM EST Chief Complaint Patient presents with Establish Care Right sided low back pain and knee pain Demetrio Rivers is a 47 y.o. year old male presents to the pain clinic for initial consultation at the request of Amber Eastman for evaluation of Right- sided low back pain w/radiating symptoms down right leg . HPI: The pain is located right and left side of low back and began July 07, 2023 as the result of unknown. The pain does radiate to the the right leg to the toes . Pain quality is described as sharp, shooting, and aching and is 6/10 in intensity. He reports the pain occurs constant and is moderate. Since this pain began it has in some ways it has gotten worse and in some ways it has gotten better. Activities of normal daily living and sitting, walking, lifting, bending aggravate the pain and is relieved by doing nothing with good support. He reports he needs to get better to get better to get back to work. Currently wearing a holter monitor. A recent MRI of his lumbar spine shows multilevel mild neuroforaminal narrowing and degenerative changes but no yessenia disc herniation and no clear evidence of radiculopathy. He complains of significant back pain. He is just started physical therapy. He has no loss of bowel or bladder control. He has not had EMG testing. He is taking baclofen which has not helped a great deal. He has never tried tizanidine. Contract Status: He does not have a documented opioid contract. Information Reviewed: I have reviewed the referring provider records and any associated images and tests available. Referring Provider Notes 08/25/2023 Low back pain, non-specific Acute on chronic [...] spine clinic already ordered by previous provider 07/28/2023- Assessment/Plan: 1. Lumbar radiculopathy, right Patient continues [...] to Pain and Spine Center (Internal only) Review of Systems: Constitutional Denies fevers, chills, night sweats HEENT Denies new hearing or vision problems or headaches. Cardiovascular Denies chest pain, palpitations. Respiratory Denies cough, SOB. GI Denies constipation, denies diarrhea, denies N/V, black stools. Denies dysuria, denies urine retention. Musculoskeletal Denies other joint pains, except as otherwise noted see HPI for further details Neurologic Denies other loss of sensation, see HPI. Sleep within normal limit. Psychiatric Describes mood as Normal. Denies suicidal ideation. Hematologic Denies anticoagulant use, easy bruising. Physical Exam: Patient Vitals for the past 24 hrs: Pulse BP SpO2 08/31/23 1333 (!) 105 133/85 95 % CONSTITUTION: Well nourished , well developed, in mild distress, well-tended appearance, appears about reported age, overweight body habitus, no obvious deformities present HEAD: Cranium: Inspection: Atraumatic, normocephalic Face: Inspection: No facial lesions EYES: Conjunctiva: Conjunctiva normal Sclera: Sclera white Eyelids/Occular Adnexa: Eyelid appearance normal, no exudates present, eye moisture level normal EARS, NOSE, MOUTH, EARS: External Ears: Auricle appearance normal bilaterally, external auditory canal appearance within normal limits Hearing: intact to conversational voice both ears Nose: External nose: Appearance normal Oral Cavity: Lips: Lip appearance normal Tongue: Tongue appearance normal NECK: Neck: Normal appearance, no masses or tenderness, trachea midline Range of Motion: Range of motion within normal limits with normal function limits RESPIRATORY: Respiratory effort: Breathing unlabored Auscultation of Lungs: Clear with normal breathing sounds throughout, negative rales, wheezes or rhonchi CARDIOVASCULAR: Heart: Ausculation of Heart: Regular rate and rhythm, S1, S2, no murmurs, rubs or gallops GASTROENTEROLOGY: Abdominal Examination: Abdomen non tender to palpation, tone normal without rigidity or guarding, no masses present, abdominal contour scaphoid Lymphatic: Neck: No lymphadenopathy present MUSCULOSKELETAL: Lumbosacral Spine: Range of Motion: Decreased in all planes with increased pain with spinal extension Palpation: Muscle guarding present with malalignment of the PSIS Gait and Station: Normal gait and station SKIN AND SUBCUTANEOUS: General Inspection: Without rash or lesion NEUROLOGIC: Cranial Nerves: Cranial nerves 2-12 unremarkable Mental Status Examination: unremarkable Motor Examination: 5/5 strength in all four extremities in all muscle groups Reflexes: 2+ deep tendon reflexes symmetric, biceps, triceps, brachioradialis, knees and ankles bilaterally, down going toes bilaterally, Gauthier sign negative bilaterally Sensation: Normal sensation in all cervical and lumbosacral dermatomes, exam normal all four extremities PSYCHIATRIC: Mood and Affect: Mood normal. affect appropriate Assessment/Plan: Demetrio was seen today for establish care. Diagnoses and all orders for this visit: Lumbar strain, initial encounter Chronic pain syndrome Radiculopathy of lumbar region Other orders - tiZANidine (Zanaflex) 2 mg tablet; One tablet po qhs for 4 nights, then one tablet po q8 hours prn pain/spasm I would like to increase physical therapy done at [facility] to twice a week from oncea week, switch him to tizanidine as above and see him for my next available appointment for bilateral lower extremity EMG testing. I have explained the process of EMG testing to the patient. He is inagreement with this plan. At the current time, given the findings on the MRI, I see no indication fo r an epidural steroid injection without further information. I have reviewed the referring provider records and any associated images and tests available. He is in agreement with the above plan. All of the patient's questions were answered and he was appreciative of today's visit. Amber N Raiza thank you for allowing me to participate in the care of your patient. For further details, please see the above note. documented in this encounter Plan of Treatment Not on file documented as of this encounter Visit Diagnoses Diagnosis Lumbar strain, initial encounter Chronic pain syndrome Radiculopathy of lumbar region Thoracic or lumbosacral neuritis or radiculitis, unspecified documented in this encounter Care Teams Mechanical Manufacturing Technician Relationship Specialty Start Date End Date Emerita Falcon MD [address] [place] [address] PCP - General Family Medicine 08/12/23 documented as of this encounter
--- OUTSIDE RECORDS SUMMARY | 2024-08-07 10:35 | XMS_ITS | Encounter Summary ---
Author Organization [facility] Address [facility] [place] [address] Care Team Providers Care Business Manager [employer] Name Role Phone Emerita Falcon MD Primary Care Provider +1- [phone] Encounter Details Date Type Department Care Team (Late st Contact Info) Description 09/29/2023 Telephone Primary Care at [address] [address] Rosalie Earl Social History Tobacco Use Types Packs/Day Years Used Date Smoking Tobacco: Former Cigarettes 2021 Passive Smoke Exposure: Current Smokeless Tobacco: Never Comments:Doesn't smoke durin g the week. 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 * Telephone Encounter - Iris Jolley RN - 09/30/2023 1:58 PM EST Need and restrictions/limitations, return to work date/released to work. * Telephone Encounter - Rosalie Earl - 09/29/2023 3:05 PM EST Tressa from Insurance company called would like a call back regarding this patient, Notes from 08/25/2023 doesn't say.. work restrictions or delay of work.. Please advise [phone] EX [phone] Thank you documented in this encounter Plan of Treatment Not on file documented as of this encounter Visit Diagnoses Not on filedocumented in this encounter Care Teams Business Manager [employer] Relationship Specialty Start Date End Date Emerita Falcon MD [address] [facility] [place] [address] PCP - General Family Medicine 08/12/23 documented as of this encounter
--- OUTSIDE RECORDS SUMMARY | 2024-08-07 10:35 | XMS_ITS | Encounter Summary ---
Author Organization [facility] Address [facility] [place] [address] Care Team Providers Care Mushroom Laborer Name Role Phone Emerita Falcon MD Primary Care Provider +1- [phone] Encounter Details Date Type Department Care Team ([facility] st Contact Info) Description 09/09/2023 Telephone Physical Therapy at [address] [address] Carson Mittal, PT Social History Tobacco Use Types Packs/Day Years Used Date Smoking Tobacco: Former Cigarettes 2021 Passive Smoke Exposure: Current Smokeless Tobacco: Never Comments:Doesn't smoke durin g the week. 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
--- OUTSIDE RECORDS SUMMARY | 2024-08-07 10:35 | XMS_ITS | Encounter Summary ---
Author Organization [facility] Address One [facility] [place] [address] Care Team Providers Care Lip Of Shank Cutter Name Role Phone Emerita Falcon MD Primary Care Provider +1- [phone] Encounter Details Date Type Department Care Team (Latest Contact Info) Description 08/31/2023 Travel Social History Tobacco Use Types Packs/Day Years Used Date Smoking Tobacco: Former Cigarettes 2021 Passive Smoke Exposure: Current Smokeless Tobacco: Never Comments:Doesn't smoke durin g the week. 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
--- OUTSIDE RECORDS SUMMARY | 2024-08-07 10:35 | XMS_ITS | Encounter Summary ---
Author Organization [facility] Address [facility] [place] [address] Care Team Providers Care Line Service Supervisor Name Role Phone Belkys Houston MD Primary Care Provider [phone] Reason for Referral * Physical Therapy (Routine) - Closed Specialty Diagnoses / Procedures Referred By Contmaryjo t Referred To Contact Physical Therapy Diagnoses Lumbar back pain Amber Eastman APRN [address] [place] [address] [facility] [address] [place] [address] Referral ID Status Reason Start Date Expiration Date V isits Requested Visits Authorized [id number] Closed Evaluate and Treat 07/07/2023 07/06/2024 20 20 Reason for Visit * Reason Comments Follow-up 3 week follow up Hip Pain Encounter Details Date Type Department Care Team ([facility] st Contact Info) Description 07/07/2023 2:15 PM EDT Office Visit Primary Care at [address] [address] Amber Eastman APRN [address] [place] [address] Lumbar back pain; Hypertension, unspecified type; Right calf pain; Pain and swelling of right lower leg; Gout of right ankle, unspecified cause, unspecified chronicity Social History Tobacco Use Types Packs/Day Years [...] Sign Reading Time Taken Comments Blood Pressure 150/100 07/07/2023 2:40 PM EDT Pulse 122 07/07/2023 2:20 PM EDT Temperature 36.8 ??C (98.2 ??F) 07/07/2023 2:20 PM ED T Respiratory Rate - - Oxygen Saturation 100% 07/07/2023 2:20 PM EDT Inhaled Oxygen Concentration - - Weight 116.1 kg (256 lb) 07/07/2023 2:20 PM EDT Height - - Body Mass Index 35.7 10/25/2022 11:43 AM EST documented in this encounter Patient Instructions * Patient Instructions* Amber Eastman APRN - 07/07/2023 2:15 PM EDT Patient educated that most MSK pain is usually self limiting but can recur episodically. Encouragedand advised to take medications as prescribed, take PRN Tylenol alternated with NSAID and PRN muscle rub/topicals for pain relief; use heat or ice as preferred; gentle stretching exercises and keep active; no strenous activity, [rest and apply bracing if indicated]. -Continue current conservative management with heat/ice, topicals. * Attachments The following attachments cannot be sent through Care Everywhere. * Piriformis Syndrome: Exercises (Setswana) documented in this encounter Progress Notes * Amber Eastman APRN - 07/07/2023 2:15 PM EDT Images from the original note were not included. ID: Demetrio Rivers is a 47 y.o. male Assessment/Plan: 1. Lumbar back pain Patient reports that he hurt his back at work approximately 2 to 3 days ago. 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 At this time he is not taking his meloxicam as he ran out of this and has only tried a hot shower. He reports that he did not sleep well last night due to the pain. Patient educated on conservative management to include as needed Tylenol alternating with NSAIDs as long as he is not takinghis meloxicam, ice, heat, Lidoderm patch and I will provide him with a short regiment of Flexeril. We will also provide patient with home stretches and refer patient to physical therapy. Patient is in agreement with this plan. Patient is to follow-up with PCP or [facility]AL in 3 weeks or sooner if needed. - cyclobenzaprine (Flexeril) 10 mg tablet; Take 1 tablet by mouth nightly as needed for Muscle spasms. Dispense: 30 tablet; Refill: 1 - Referral to Physical Therapy - lidocaine (Lidoderm) 5% Adhesive Patch, Medicated; Place 1 patch onto affected area for 12 hours then remove for 12 hours Dispense: 15 patch; Refill: 3 2. Hypertension, unspecified type Blood pressure noted to not be in control this visit. Original blood pressure noted to be 178/110 with a recheck of 150/100. Patient reports that he did not take his lisinopril 40 mg this morning as he did not sleep well last night due to his pain. He does report that he has been monitoring his blood pressure at home and it has been within range. Patient educated and encouraged to bring home blood pressure cuff at next visit and the importance of taking his medication daily. I believe that his blood pressure is elevated today due to his pain, not sleeping yesterday and not taking his medication. Patient reports that he will take his medication daily and will follow-up with PCP or [facility]AL in 3 weeks time. If no change in blood pressure patient educated that we will be starting additional bloodpressure medications for control. 3. Right calf pain Resolved 4. Pain and swelling of right lower leg Resolved 5. Gout of right ankle, unspecified cause, unspecified chronicity Resolved- with allopurinol. Patient denies any foot or ankle pain. HPI patient is a pleasant 47-year-old male seen in office today following up on newly diagnosis of gout as well as pain and swelling of his right lower leg. Past medical history noted for hypertension, osteoarthritis of right knee, and diverticulitis. Patient reports that his pain from his gout andswelling in his right lower extremity has completely resolved but he has a new issue as he has now hurt his back. He reports that he hurt his back a few days ago and reports a sharp shooting pain that shoots down to his right foot from his right lower back. He reports his pain is an 8 out of 10 at its worse and at its best a 7 out of 10. He reports that he is only tried a hot shower for pain management. This note was partially generated using [employer] voice recognition system, and there may be some incorrect words, spellings, and punctuation that were not noted in checking the note before saving. ROS: Review of Systems Constitutional: Negative for chills, fever and malaise/fatigue. Respiratory: Negative for cough, shortness of breath and wheezing. Cardiovascular: Negative for chest pain, palpitations and leg swelling. Gastrointestinal: Negative for abdominal pain, blood in stool, constipation, diarrhea, heartburn, nausea and vomiting. Genitourinary: Negative for dysuria, frequency, hematuria and urgency. Musculoskeletal: Positive for back pain. Negative for falls, joint pain and neck pain. Neurological: Negative for dizziness, loss of consciousness, weakness [...] Prior to Visit Medication Sig Dispense Refill allopurinoL (Zyloprim) 100 mg tablet Take 1 tablet by mouth daily. 90 tablet 3 diclofenac (Voltaren) 1 % Gel Apply topically 4 times daily as needed. To bilateral knees 450 g 5 omeprazole (PriLOSEC) 40 mg Capsule, Delayed Release(E.C.) Take 1 capsule by mouth daily. Take at least 30 min prior to eating/drinking. (Patient not taking: Reported on 12/17/2022) 90 capsule 1 meloxicam (MOBIC) 15 mg Tablet Take 1 tablet by mouth daily. 30 tablet 5 lisinopriL (Zestril) 40 mg Tablet Take 1 tablet by mouth daily. 90 tablet 3 [DISCONTINUED] lidocaine (Lidoderm) 5% Adhesive Patch, Medicated Place 1 patch onto affected area for 12 hours then remove for 12 hours 30 patch 0 No current facility-administered medications on file prior to visit. ALLERGIES: Allergies Allergen Reactions Bactrim [Sulfamethoxazole-Trimethoprim] Hives and Other (See Comments) Fever, sweating, shortness of breath VITALS: Vitals: 07/07/23 1420 07/07/23 1440 BP: (!) 178/110 (!) 150/100 BP Location (NBP): Left arm Left arm Patient Position: Sitting Sitting BP Cuff Sizes: Large Adult (32-43 cm) Pulse: (!) 122 Temp: 36.8 ??C (98.2 ??F) TempSrc: Temporal SpO2: 100% Weight: 116.1 kg (256 lb) Physical Exam Vitals reviewed. Constitutional: General: He [...] or rales. Chest: Chest wall: No tenderness. Abdominal: General: Abdomen is flat. Bowel sounds are normal. There is no distension. Palpations: Abdomen is soft. Tenderness: There is no abdominal tenderness. Musculoskeletal: Lumbar back: Spasms and tenderness present. No swelling, edema, deformity, signs of trauma, lacerations or bony tenderness. Normal range of motion. No scoliosis. Back: Right lower leg: No edema. Left lower leg: No edema. Skin: General: Skin is warm and dry. Capillary Refill: Capillary refill takes less than 2 seconds. Neurological: Mental Status: He is alert and oriented [...] of this encounter Visit Diagnoses Diagnosis Lumbar back pain Lumbago Hypertension, unspecified type Right calf pain Pain and swelling of right lower leg Gout of right ankle, unspecified cause, unspecified chronicity documented in this encounter Care Teams Line Service Supervisor Relationship Specialty Start Date End Date Belkys Houston MD [address] [place] [address] PCP - General Family Medicine 06/21/22 08/11/23 documented as of this encounter
--- OUTSIDE RECORDS SUMMARY | 2024-08-07 10:35 | XMS_ITS | Encounter Summary ---
Author Organization [facility] Address [facility] [place] [address] Care Team Providers Care Electric Organ Inspector And Repairer Name Role Phone Emerita Flacon MD Primary Care Provider +1- [phone] Reason for Visit * Reason Comments Medication Refill Encounter Details Date Type Department Care Team (Late st Contact Info) Description 12/06/2023 Refill Primary Care at [facility] [address] [place] [id number] Emerita Falcon MD [address] [facility] [place] [address] Social History Tobacco Use Types Packs/Day Years Used Date Smoking Tobacco: Former Cigarettes 2021 Passive Smoke Exposure: Current Smokeless Tobacco: Never Comments:Doesn't smoke durin g the week. 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 [...] encounter Miscellaneous Notes * Telephone Encounter - Renee Hernandez CMA - 12/08/2023 12:06 PM EDT Med(s) requested to refill: Requested Prescriptions Pending Prescriptions Disp Refills meloxicam (Mobic) 15 mg tablet [Pharmacy Med Name: MELOXICAM 15 MG TABLET] 30 tablet 2 Sig: TAKE 1 TABLET BY MOUTH EVERY DAY NEEDED FOR PAIN Last RX: 09/01/2023 #30/2 Last Office check for medication management: 10/04/2023 Date required labs completed : CMP, CBC 08/19/2023 Comments: Please sign if appropriate documented in this encounter Plan of Treatment Not on file documented as of this encounter Visit Diagnoses Not on filedocumented in this encounter Care Teams Electric Organ Inspector And Repairer Relationship Specialty Start Date End Date Emerita Falcon MD [address] [place] [address] PCP - General Family Medicine 08/12/23 documented as of this encounter
--- OUTSIDE RECORDS SUMMARY | 2024-08-07 10:35 | XMS_ITS | Encounter Summary ---
Author Organization [facility] Address [facility] [place] [address] Care Team Providers Care Instrument Repairer Name Role Phone Belkys Houston MD Primary Care Provider [phone] Reason for Visit * Reason Comments Medication Refill Encounter Details Date Type Department Care Team ([facility] st Contact Info) Description 08/05/2023 Refill Primary Care at [address] [phone] Enma Ngo, LOCKER ATTENDANT [address] [place] [address] Primary osteoarthritis of right knee Social History [...] leg documented in this encounter Care Teams Instrument Repairer Relationship Specialty Start Date End Date Belkys Houston MD [address] [place] [address] [place] [address] PCP - General Family Medicine 06/21/22 08/11/23 documented as of this encounter
--- OUTSIDE RECORDS SUMMARY | 2024-08-07 10:35 | XMS_ITS | Encounter Summary ---
Author Organization [facility] Address [facility] [place] [address] Care Team Providers Care Returned Goods Sorter Name Role Phone Belkys Houston MD Primary Care Provider [phone] Reason for Visit * Reason Comments Follow-up Pain Encounter Details Date Type Department Care Team ([facility] Contact Info) Description 07/12/2023 2:50 PM EDT Office Visit Primary Care at [address] [phone] Jose L Hector, MANAGER CANCER [address] [place] [address] Lumbar radiculopathy, right Social History Tobacco Use [...] Sign Reading Time Taken Comments Blood Pressure 100/70 07/12/2023 2:46 PM EDT Pulse 95 07/12/2023 2:46 PM EDT Temperature 36.9 ??C (98.5 ??F) 07/12/2023 2:46 PM ED T Respiratory Rate - - Oxygen Saturation 96% 07/12/2023 2:46 PM EDT Inhaled Oxygen Concentration - - Weight - - Height 180.3 cm (5' 11) 07/12/2023 2:46 PM EDT Body Mass Index - - documented in this encounter Progress Notes * Christ Shah CCMA - 07/12/2023 2:50 PM EDT Images from the original note were not included. 07/12/2023 Behavioral Health Responses (QBHI) PHQ-2 Score 0 (Brief PHQ2 screen negative) AURELIANO-2 Score 0 (Brief screen negative) Audit Screener Yes Audit Final Scores 3 (Low Risk) Drug Screener No 07/12/2023 PHQ-9 Patient Reported Responses Little interest or pleasure Not at all Down, depressed, hopeless Not at all 07/12/2023 AURELIANO-7 Responses Nervous, anxious (Pt Questionnaire) Not at all Nervous, anxious Not at all Unable to stop worrying (Pt Questionnaire) Not at all Unable to stop worrying Not at all AURELIANO-7 Score 0 07/12/2023 AUDIT/GEORGE Patient Reported Responses Drinking frequency 2 to 4 times a month Drinks per day 1 to 2 drinks 5+ drinks on one occasion Less than monthly Unable to stop, past year Never Failed to meet expectations, past year Never Drink in morning after heavy drinking Never Guilt or remorse, past year Never Unable to remember, past year Never Injury due to drinking No Concern from close people No Audit Scores 3 (Low Risk) Drug use past year No Contains possible sensitive information. Consider removing from the progress note or bradly the note as sensitive. No data to display 09/07/2016 Adult Screener: Last Ave Fatigue and [address] fatigue in last 7 days Severe Social History Tobacco Use Smoking Status Former Years: 10 Types: Cigarettes Quit date: 2021 Years since quittin.8 Smokeless Tobacco Never Tobacco Comments Doesn't smoke during the week. * Jose L Hector APRN - 07/12/2023 2:50 PM EDT ID: Demetrio Rivers is a 47 y.o. male, patient of Belkys Houston MD, who I here to discuss ongoing back pain. HPI Per nurse triage: Zaida calls for patient. Patient provides verbal [...] incontinence. Patient has been using tylenol, meloxicam, cyclobenzaprine, and lidocaine. He uses heat and ice. He has not yet scheduled visits with PT. He reports that the tingling and weaknessin right leg are new and worsening. Evaluation with Amber Eastman APRN, 07/07/23 Patient reports that he hurt his back at work approximately 2 to 3 days ago. 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 Patient is in agreement with this plan.. His 1st evaluation for this issue was a month ago he was seen at the . Prior evaluations include lumbar, pelvic, ankle and foot x-ray Lumbar showed x-ray: IMPRESSION Mild degenerative lumbar spondylosis. No acute findings. All other results were unremarkable. Lab results included Lyme, uric acid, CBC, CMP, CRP, TSH; at the exception of the uric acid level that was mildly elevated, all other results were unremarkable. Per patient: He states the pain is on the right side of his back going down to his leg to his foot, his big toe has been numb for 3 weeks. He states he has been taking the flexeril, ibuprofen and the allopurinol, lidocaine patch and cream; he is getting minimal relief and that he needs something stronger. He was given prednisone 10 daysago, it helped a bit but, did not do much. The is one one spot at the right side side of his lower back, but, worsens as it goes down to his leg. The numbness is worse as he taking the cyclobenzaprine. He has a history of knee that has problem. 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 He does does no saddle back numbness, the numbness in his toe is quite bothersome. He feels that the leg is weak from the hip down, t his may be related to pain as lifting his leg causing the pain to increase. ROS: Review of Systems Constitutional: Negative for chills and fever. Respiratory: Negative. Cardiovascular: Negative. Negative for chest pain, claudication and leg swelling. Gastrointestinal: Negative. Negative for constipation. Genitourinary: Negative. Negative for dysuria. Musculoskeletal: Positive for back pain and joint pain. Skin: Negative. Neurological: Positive for tingling, sensory change and focal weakness. Negative for tremors, seizures and loss of consciousness. Psychiatric/Behavioral: Negative. VITALS: Vitals: 07/12/23 1446 BP: 100/70 BP Location (NBP): Left arm Patient Position: Sitting Pulse: 95 Temp: 36.9 ??C (98.5 ??F) TempSrc: Temporal SpO2: 96% Height: 180.3 cm (5' 11) Physical Exam Vitals and nursing note reviewed. Constitutional: Appearance: He is not toxic-appearing or diaphoretic. Comments: Patient came in wheelchair, limited motion of the right lower extremity Cardiovascular: Rate and Rhythm: Normal rate and regular rhythm. Heart sounds: Normal heart sounds. Pulmonary: Effort: Pulmonary effort is normal. Breath sounds: Normal breath sounds. Abdominal: General: Bowel sounds are normal. Tenderness: There is no abdominal tenderness. Musculoskeletal: Cervical back: Neck supple. No tenderness. Right lower leg: No lacerations or tenderness. No edema. Left lower leg: No edema. Comments: Due to pain ROM of right lower extremity was not evaluated Skin: General: Skin is warm and dry. Psychiatric: Mood and Affect: Mood normal. Thought Content: Thought content normal. Patient Active Problem List Diagnosis Code Primary hypertension I10 Osteoarthritis of right knee M17.11 Tubular adenoma of colon D12.6 Diverticulitis of both small and large intestine without perforation or abscess with bleeding K57.53 MEDICATIONS: Current Outpatient Medications on File Prior to Visit Medication Sig Dispense Refill lidocaine (Lidoderm) 5% Adhesive Patch, Medicated Place [...] by mouth daily. 90 tablet 3 [DISCONTINUED] meloxicam (MOBIC) 15 mg Tablet Take 1 tablet by mouth daily. 30 tablet 5 No current facility-administered medications on file prior to visit. ALLERGIES: Allergies Allergen Reactions Bactrim [Sulfamethoxazole-Trimethoprim] Hives and Other (See Comments) Fever, sweating, shortness of breath Assessment/Plan: ICD-10-CM 1. Lumbar radiculopathy, right M54.16 traMADoL (Ultram) 50 mg tablet MRI Lumbar Spine wo Contrast (Generic) baclofen (Lioresal) 20 mg tablet We discuss pain management, tramadol was added for pain > 7/10, we subtitue cyclobenzaprine to baclofen due to increase numbness; he will continue prn as prior. Continue: Due to symptoms of radiculopathy associated with back pain and x-ray result showed mild degeneration and lumbar spondylosis, we discuss and agree to order an MRI for further assessment. Follow up result for further recommendation. RESULTS: No results found for this or any previous visit (from the past 168 hour(s)). documented in this encounter Plan of Treatment Not on file documented as of this encounter Visit Diagnoses Diagnosis Lumbar radiculopathy, right documented in this encounter Care Teams Returned Goods Sorter Relationship Specialty Start Date End Date Belkys Houston MD [address] [place] [address] PCP - General Family Medicine 06/21/22 08/11/23 documented as of this encounter
--- OUTSIDE RECORDS SUMMARY | 2024-08-07 10:35 | XMS_ITS | Encounter Summary ---
Author Organization [facility] [place] [address] Care Team Providers Care Disability Hearing Officer Name Role Phone Emerita Falcon MD Primary Care Provider [phone] Reason for Visit * Reason Onset Date Comments Medication Refill 08/14/2023 Encounter Details Date Type Department Care Team ([facility] st Contact Info) Description 08/14/2023 Refill Primary Care at [address] [phone] Jose L Hector, QUAIL FARMER [address] [place] [address] Lumbar radiculopathy, right Social History Tobacco [...] encounter Miscellaneous Notes * Telephone Encounter - Emerita Falcon MD - 08/16/2023 5:21 PM EST Looks like next apt is with primary care on [address]. I think it will need to be changed to here. Iwill send in 1 week of meds to get him through until a fu apt * Telephone Encounter - Lindy Sr RN - 08/16/2023 2:39 PM EST Patient Controlled Drug Refill Request Date of last controlled substance refill: 07/12/23 Controlled Substance Agreement on file yes. CS Agreement Type: Opioid Date: 07/18/23 Is medication due: yes Last Urine Drug Screen: order placed Urine Consistent: n/a PDMP Consistent: not checked Office visit within 6 months: 07/28/23 Last visit with authorizing provider: Office Visit: Next visits with authorizing provider: 08/18/23 documented in this encounter Plan of Treatment Not on file documented as of this encounter Visit Diagnoses Diagnosis Lumbar radiculopathy, right documented in this encounter Care Teams Disability Hearing Officer Relationship Specialty Start Date End Date Emerita Falcon MD [address] [place] [address] PCP - General Family Medicine 08/12/23 documented as of this encounter
--- OUTSIDE RECORDS SUMMARY | 2024-08-07 10:35 | XMS_ITS | Encounter Summary ---
Author Organization [facility] Address [facility] [place] [address] Care Team Providers Care Director Of Content And Programming Name Role Phone Emerita Falcon MD Primary Care Provider [phone] Reason for Visit * Physical Therapy (Routine) - Closed Specialty Diagnoses / Procedures Referred By Contac t Referred To Contact Physical Therapy Diagnoses Lumbar back pain Amber Eastman, SALES AND MARKETING DIRECTOR [address] [place] [address] [facility] [address] [place] [address] Referral ID Status Reason Start Date Expiration Date V isits Requested Visits Authorized [id number] Closed Evaluate and Treat 07/07/2023 07/06/2024 20 20 Encounter Details Date Type Department Care Team (Late st Contact Info) Description 10/07/2023 5:00 PM EST Office Visit Physical Therapy at [address] [phone] Melia Baez, BOTTLING ROOM WORKER Low back pain, non-specific Social History Tobacco Use Types Packs/Day Years Used Date Smoking Tobacco: Former Cigarettes - 2021 Passive Smoke Exposure: Current Smokeless Tobacco: Never Comments:Doesn't smoke durin g the week. 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 male to address 1. Low back pain, non-specific S: My right knee is cracking and popping. I am going back to work on Tuesday . O: Treatment consisting of: Ther ex- Nu-step x5min. Pallof press 10# strap Sit to stand to OHP 2x10 4 KG [place] carry with november 10 kg KB Suitcase carry with november 10kg KB A: progressing very well. Pt is returning to work on Tuesday. P: Continue per plan Total Timed Code Treatment: 30 minutes Total Treatment Time: 30 minutes Melia Baez PTA documented in this encounter Plan of Treatment Not on file documented as of this encounter Visit Diagnoses Diagnosis Low back pain, non-specific documented in this encounter Care Teams Director Of Content And Programming Relationship Specialty Start Date End Date Emerita Falcon MD [address] [place] [address] PCP - General Family Medicine 08/12/23 documented as of this encounter
--- OUTSIDE RECORDS SUMMARY | 2024-08-07 10:35 | XMS_ITS | Encounter Summary ---
Author Organization [facility] Address [facility] [place] [address] Care Team Providers Care Environmental Compliance Officer Name Role Phone Emerita Falcon MD Primary Care Provider [phone]- [phone] Reason for Visit * Reason Comments Medication Refill Encounter Details Date Type Department Care Team ([facility] st Contact Info) Description 12/03/2023 Refill Primary Care at [address] [phone] Enma Ngo, CENTRAL OFFICE EQUIPMENT INSTALLER [address] [place] [address] Primary hypertension Social History Tobacco Use Types Packs/Day Years Used Date Smoking Tobacco: Former Cigarettes 2021 Passive Smoke Exposure: Current Smokeless Tobacco: Never Comments:Doesn't smoke durin g the week. 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
--- OUTSIDE RECORDS SUMMARY | 2024-08-07 10:35 | XMS_ITS | Encounter Summary ---
Author Organization [facility] Address [place] [address] Care Team Providers Care Canning Machine Operator Name Role Phone Belkys Houston MD Primary Care Provider [phone] Encounter Details Date Type Department Care Team (Late st Contact Info) Description 07/14/2023 Telephone Primary Care at [address] [phone] Olya Urena Social History Tobacco Use Types Packs/Day Years [...] encounter Miscellaneous Notes * Telephone Encounter - Olya Urena - 07/14/2023 1:26 PM EDT Abdirashid PERRIN calls to ask for MRI order. Pt has MRI scheduled for 07/15/23. Faxed MRI order to Abdirashid PERRIN. . Receipt received. documented in this encounter Plan of Treatment Not on file documented as of this encounter Visit Diagnoses Not on filedocumented in this encounter Care Teams Canning Machine Operator Relationship Specialty Start Date End Date Belkys Houston MD [address] [place] [address] PCP - General Family Medicine 06/21/22 08/11/23 documented as of this encounter
[2024-08-07 10:36] LABS: ALT 39 U/L (16-63); AST 20 U/L (15-37); Albumin 3.3 g/dL (3.4-5.0); Alkaline Phosphatase 83 U/L (46-116); BUN 13 mg/dL (7-18); Bilirubin, Total 0.89 mg/dL (0.2-1.0); CREATININE 1.3 mg/dL (0.70-1.30); Chloride 105 mmol/L (98-107); Estimated GFR 68.19 (mL/min/1.73m2); Glucose 113 mg/dL (74-106); Sodium 138 mmol/L (136-145); Total Protein 7.5 g/dL (6.4-8.2)
--- OUTSIDE RECORDS SUMMARY | 2024-08-07 10:36 | XMS_ITS | Encounter Summary ---
Author Organization [facility] Address [facility] [place] [address] Care Team Providers Care Email Engineer Name Role Phone Belkys Houston MD Primary Care Provider [phone] Reason for Visit * Reason Comments Knee Pain Bilat Encounter Details Date Type Department Care Team (Latest Contact Info) Description 03/26/2023 1:10 PM EDT Office Visit Primary Care at [address] [phone] Miya Gomez PA [address] [place] [address] Primary osteoarthritis of knees, bilateral Social History Tobacco Use Types Packs/Day Years [...] Sign Reading Time Taken Comments Blood Pressure 140/100 03/26/2023 1:13 PM EDT Pulse 114 03/26/2023 1:13 PM EDT Temperature 36.1 ??C (97 ??F) 03/26/2023 1:13 PM EDT Respiratory Rate - - Oxygen Saturation 99% 03/26/2023 1:13 PM EDT Inhaled Oxygen Concentration - - Weight 106.1 kg (234 lb) 03/26/2023 1:13 PM EDT Height - - Body Mass Index 32.64 10/25/2022 11:43 AM EST documented in this encounter Progress Notes * Miya Gomez PA - 03/26/2023 1:10 PM EDT S: Demetrio presents to the clinic requesting a note for work as 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 Patient has a history of osteoarthritis affecting both knees, right greater than left. He is followed by orthopedics. Last plan was to try viscosupplementation, but insurance would not improve Synvisc 1. He continues to take meloxicam. His knee pain waxes and wanes and was feeling good enough over the weekend that he did not take his meloxicam. Pain acutely worsened on Tuesday. It has improved to the point that he was able to get here today, but he is still limping. He denies any signs of infection such as redness, warmth, fevers or chills. He has no other complaints. O: Deferred-patient appears well, A&O x3. Ambulates independently with a significantly antalgicgait favoring both knees. A: Osteoarthritis of both knees P: Encouraged patient to proceed with different form of viscosupplementation that insurance will cover. Also encouraged conversation with PCP regarding pain management so that he may delay bilateral TKAs for as long as possible (which is his goal so he does not outlive his TKA's and need revisions)and improve quality of life at this time. Note for provided. This will be a no charge visit. documented in this encounter Plan of Treatment Not on file documented as of this encounter Visit Diagnoses Diagnosis Primary osteoarthritis of knees, bilateral documented in this encounter Care Teams Email Engineer Relationship Specialty Start Date End Date Belkys Houston MD [address] [place] [address] PCP - General Family Medicine 06/21/22 08/11/23 documented as of this encounter
--- OUTSIDE RECORDS SUMMARY | 2024-08-07 10:36 | XMS_ITS | Encounter Summary ---
Author Organization [facility] Address [facility] [place] [address] Care Team Providers Care Golf Club Weighter Name Role Phone Belkys Houston MD Primary Care Provider [phone] Encounter Details Date Type Department Care Team (Latest Contact Info) Description 11/30/2022 10:05 AM EDT - 11/30/2022 11:59 PM EDT Hospital Encounter CAT Scan at [address] [phone] Discharge Disposition: Home Social History Tobacco Use Types Packs/Day Years Used Date Smoking Tobacco: Former Cigarettes 2 2021 Smokeless Tobacco: Never Comments:Doesn't smoke durin g the week. Alcohol Use Standard Drinks/Week Comments Yes 14 (1 standard drink = 0.6 oz pu re alcohol) maybe a beer after work Sex and Gender Information Value Date Recorded Sex Assigned at Not on file Gender Identity Not on file Sexual Orientation Not on file documented as of this encounter Medications at Time of Discharge Medication Sig Dispensed Refills Start Date End Date amoxicillin-clavulanate (Augmentin) 875-125 mg Tablet Take 1 tablet by mouth 2 times daily for 7 days. 14 tablet 11/30/2022 12/07/2022 omeprazole (PriLOSEC) 40 mg Capsule, Delayed Release(E.C.) Take 1 capsule by mouth daily. Take at least 30 min prior to eating/drinking. 90 capsule 1 10/25/2022 08/18/2023 meloxicam (MOBIC) 15 mg TabletIndications:Primar y osteoarthritis of right knee Take 1 tablet by mouth daily. 30 tablet 5 09/17/2022 07/14/2023 lisinopriL (Zestril) 40 mg TabletIndications:Primar y hypertension Take 1 tablet by mouth daily. 90 tablet 3 09/17/2022 12/03/2023 lidocaine (Lidoderm) 5% Adhesive Patch, MedicatedIndications:Annie beverly osteoarthritis of right knee Place 1 patch onto affected area for 12 hours then remove for 12 hours 30 patch 09/17/2022 07/07/2023 documented as of this encounter Plan of Treatment Not on file documented as of this encounter Procedures Procedure Name Priority Date/Time Associated Diagnosis Comments CT ABDOMEN AND PELVIS W CONTRAST STAT 11/30/2022 11:30 AM EDT documented in this encounter Visit Diagnoses Not on filedocumented in this encounter Administered Medications Inactive Administered Medications - up to 3 most recent administrations Medication Order MAR Action Action Date Dose Rate Site iohexoL (Omnipaque) (350 mg/mL) solution 0-200 mL 0-200 mL, Intravenous, ONCE PRN, 1 dose, Starting on Tue11/30/22 at 1130, Until Tue11/30/22 at 1130, Per Protocol, Warning Vesicant/Irritant Medication , Radiology Contrast, Routine Given 11/30/2022 11:30 AM EDT 120 mLs documented in this encounter Care Teams Golf Club Weighter Relationship Specialty Start Date End Date Belkys Houston MD [address] [place] [address] PCP - General Family Medicine 06/21/22 08/11/23 documented as of this encounter
--- OUTSIDE RECORDS SUMMARY | 2024-08-07 10:36 | XMS_ITS | Encounter Summary ---
Author Organization [facility] Address [facility] [place] [address] Care Team Providers Care Reed Man Name Role Phone Belkys Houston MD Primary Care Provider [phone] Encounter Details Date Type Department Care Team (Latest Contact Info) Description 11/30/2022 Travel Social History Tobacco Use Types Packs/Day [...] on filedocumented in this encounter Care Teams Reed Man Relationship Specialty Start Date End Date Belkys Houston MD [address] [place] [address] PCP - General Family Medicine 06/21/22 08/11/23 documented as of this encounter
--- OUTSIDE RECORDS SUMMARY | 2024-08-07 10:36 | XMS_ITS | Encounter Summary ---
Author Organization [facility] Address [facility] [place] [address] Care Team Providers Care Supervisor Asbestos Removal Name Role Phone Belkys Houston MD Primary Care Provider [phone] Encounter Details Date Type Department Care Team (Latest Contact Info) Description 01/07/2023 Travel Social History Tobacco Use Types Packs/Day [...] on filedocumented in this encounter Care Teams Supervisor Asbestos Removal Relationship Specialty Start Date End Date Belkys Houston MD [address] [place] [address] PCP - General Family Medicine 06/21/22 08/11/23 documented as of this encounter
--- OUTSIDE RECORDS SUMMARY | 2024-08-07 10:36 | XMS_ITS | Encounter Summary ---
Author Organization Formerly [facility] Address [facility] [place] [address] Care Team Providers Care Painter Name Role Phone Belkys Houston MD Primary Care Provider [phone] Encounter Details Date Type Department Care Team (Latest Contact Info) Description 06/16/2023 12:45 PM EDT - 06/16/2023 11:59 PM EDT Hospital Encounter XRay at [address] [phone] Amber Eastman N, CUSTODY OFFICER [address] [place] [address] [phone] Pain and swelling of right lower leg Discharge Disposition: Home Social History Tobacco Use [...] Sig Dispensed Refills Start Date End Date allopurinoL (Zyloprim) 100 mg tabletIndications:Gout of right ankle, unspecified cause, unspecified chronicity Take 1 tablet by mouth daily. 90 tablet 3 06/16/2023 diclofenac (Voltaren) 1 % GelIndications:Chronic pain of left knee,Chronic pain of right knee Apply topically 4 times daily as needed. To bilateral knees 450 g 5 12/17/2022 predniSONE (Deltasone) 20 mg tabletIndications:Gout of right ankle, unspecified cause, unspecified chronicity Take 2 tablets by mouth daily for 3 days, THEN 1.5 tablets daily for 3 days, THEN 1 tablet daily for 3 days, THEN 0.5 tablets daily for 3 days. 15 tablet 06/16/2023 06/28/2023 omeprazole (PriLOSEC) 40 mg Capsule, Delayed Release(E.C.) [...] 12/03/2023 lidocaine (Lidoderm) 5% Adhesive Patch, MedicatedIndications:Annie rush osteoarthritis of right knee Place 1 patch onto affected area for 12 hours then remove for 12 hours 30 patch 09/17/2022 07/07/2023 documented as of this encounter Plan of Treatment Not on file documented as of this encounter Procedures Procedure Name Priority Date/Time Associated Diagnosis Comments XR ANKLE MIN 3 VIEWS RIGHT Routine 06/16/2023 12:57 PM EDT Pain and swelling of right lower leg documented in this encounter Results * XR Ankle Min 3 views Right (Generic) (06/16/2023 12:57 PM EDT) Anatomical Region Laterality Modality Ankle Right Computed Radiogr aphy Impressions 06/16/2023 2:09 PM EDT There is no fracture. There is no dislocation. Mild soft tissue edema. ?? Thank you for letting us participate in the care of this patient. ??If you are a health care provider and have any questions regarding this report, please contact the number below. ??For patients who have questions please contact the health rn progressive care unit that requested your imaging first. ? Electronically signed by: PRUDENCIO GREEN MD, [facility] ([phone]), at 06/16/2023 2:09 PM Narrative 06/16/2023 2:09 PM EDT EXAMINATION: XR ANKLE MIN 3 VIEWS RIGHT (GENERIC) CLINICAL INDICATION: increased swelling and pain TECHNIQUE: 3 views right ankle COMPARISON: None. FINDINGS: There is no fracture. There is no dislocation. Mild soft tissue edema. Procedure Note Prudencio Green MD - 06/16/2023 EXAMINATION: XR ANKLE MIN 3 VIEWS RIGHT (GENERIC) CLINICAL INDICATION: increased swelling and pain TECHNIQUE: 3 views right ankle COMPARISON: None. FINDINGS: There is no fracture. There is no dislocation. Mild soft tissue edema. IMPRESSION There is no fracture. There is no dislocation. Mild soft tissue edema. Thank you for letting us participate in the care of this patient. If youare a health care provider and have any questions regarding this report,please contact the number below. For patients who have questions please contactthe health rn progressive care unit that requested your imaging first. Electronically signed by: PRUDENCIO GREEN MD, [facility] ([phone]), at 06/16/2023 2:09 PM Amber Eastman APRN IMG DX ORDERABLES documented in this encounter Visit Diagnoses Diagnosis Pain and swelling of right lower leg documented in this encounter Care Teams Painter Relationship Specialty Start Date End Date Belkys Houston MD [address] [place] [id number] PCP - General Family Medicine 06/21/22 08/11/23 documented as of this encounter
--- OUTSIDE RECORDS SUMMARY | 2024-08-07 10:36 | XMS_ITS | Encounter Summary ---
Author Organization [facility] Address [facility] [place] [address] Care Team Providers Care Trench Pipe Layer Name Role Phone Belkys Houston MD Primary Care Provider [phone] Encounter Details Date Type Department Care Team (Latest Contact Info) Description 12/17/2022 2:26 PM EDT - 12/17/2022 11:59 PM EDT Hospital Encounter XRay at [address] [phone] Amber Eastman N, ROUTE RELIEF DRIVER [address] [place] [address] [phone] Chronic pain of left knee; Chronic pain of right knee Discharge Disposition: Home Social History Tobacco Use [...] Sig Dispensed Refills Start Date End Date diclofenac (Voltaren) 1 % GelIndications:Chronic pain of left knee,Chronic pain of right knee Apply topically 4 times daily as needed. To bilateral knees 450 g 5 12/17/2022 omeprazole (PriLOSEC) 40 mg Capsule, Delayed Release(E.C.) [...] Name Priority Date/Time Associated Diagnosis Comments XR KNEE AP LAT AXIAL PATELLA BILAT Routine 12/17/2022 2:40 PM EDT Chronic pain of left knee Chronic pain of right knee documented in this encounter Results * XR Knee 3 Views Bilat (12/17/2022 2:40 PM EDT) Anatomical Region Laterality Modality Knee Bilateral Computed Radiogr aphy Impressions 12/17/2022 2:42 PM EDT Mild to moderate medial joint space narrowing, cortical remodeling and periarticular osteophytic spurring consistent with moderate osteoarthritis. There is no acute fracture or dislocation. There are mild bilateral suprapatellar joint effusions. Thank you for letting us participate in the care of this patient. ??If you are a health care provider and have any questions regarding this report, please contact the number below. ??For patients who have questions please contact the health critical care unit nurse that requested your imaging first. ? Electronically signed by: PRUDENCIO GREEN MD, [facility] ([phone]), at 12/17/2022 2:42 PM Narrative 12/17/2022 2:42 PM EDT EXAMINATION: XR KNEE 3 VIEWS BILAT CLINICAL INDICATION: patient has increased bilatreal knee pain, R>L, now making it difficult to ambulate. TECHNIQUE: 3 views bilateral knees COMPARISON: 09/07/2016 FINDINGS: Mild to moderate medial joint space narrowing, cortical remodeling and periarticular osteophytic spurring consistent with moderate osteoarthritis. There is no acute fracture or dislocation. There are mild bilateral suprapatellar joint effusions. Procedure Note Prudencio Green MD - 12/17/2022 EXAMINATION: XR KNEE 3 VIEWS BILAT CLINICAL INDICATION: patient has increased bilatreal knee pain, R>L, nowmaking it difficult to ambulate. TECHNIQUE: 3 views bilateral knees COMPARISON: 09/07/2016 FINDINGS: Mild to moderate medial joint space narrowing, cortical remodeling and periarticular osteophytic spurring consistent with moderateosteoarthritis. There is no acute fracture or dislocation. There are mild bilateral suprapatellar joint effusions. IMPRESSION Mild to moderate medial joint space narrowing, cortical remodeling and periarticular osteophytic spurring consistent with moderateosteoarthritis. There is no acute fracture or dislocation. There are mild bilateral suprapatellar joint effusions. Thank you for letting us participate in the care of this patient. If youare a health care provider and have any questions regarding this report,please contact the number below. For patients who have questions please contactthe health critical care unit nurse that requested your imaging first. Electronically signed by: PRUDENCIO GREEN MD, [facility] ([phone]), at 12/17/2022 2:42 PM Amber Eastman ROUTE RELIEF DRIVER IMG DX ORDERABLES documented in this encounter Visit Diagnoses Diagnosis Chronic pain of left knee Pain in joint, lower leg Chronic pain of right knee documented in this encounter Care Teams Trench Pipe Layer Relationship Specialty Start Date End Date Belkys Houston MD [address] [place] [id number] PCP - General Family Medicine 06/21/22 08/11/23 documented as of this encounter
--- OUTSIDE RECORDS SUMMARY | 2024-08-07 10:36 | XMS_ITS | Encounter Summary ---
Author Organization [facility] Address [facility] [place] [address] Care Team Providers Care Returns Processor Name Role Phone Belkys Houston MD Primary Care Provider Reason for Visit * Reason Comments Flank Pain Encounter Details Date Type Department Care Team (Late st Contact Info) Description 12/06/2022 8:58 PM EDT - 12/07/2022 1:45 AM EDT Emergency Emergency Department at [address] [id number] Mirna Whitfield MD [facility] [place] [place] [address] Flank pain Discharge Disposition: Home Social History Tobacco Use [...] Sign Reading Time Taken Comments Blood Pressure 171/107 12/07/2022 1:40 AM EDT Pulse 70 12/07/2022 1:40 AM EDT Temperature 37.3 ??C (99.2 ??F) 12/06/2022 1 1:48 PM EDT Respiratory Rate 18 12/07/2022 1:40 AM EDT Oxygen Saturation 99% 12/07/2022 1:40 AM EDT Inhaled Oxygen Concentration - - Weight 114.9 kg (253 lb 3.2 oz) 12/06/2022 9:02 PM EDT Height - - Body Mass Index 35.31 10/25/2022 11:43 AM EST documented in this encounter Discharge Instructions * Discharge Instructions* Mirna Whitfield MD - 12/07/2022 1:22 AM EDT You were seen in the emergency department with concern for right-sided flank pain. Your evaluation here did not show any obvious explanation for your pain symptoms. Specifically, there was no evidence for kidney stones, kidney infection, obstruction, worsening diverticulitis or other signs of systemic infection. Plan for brief trial of outpatient management including rest, Tylenol/ibuprofen, topical ktye-[id number] lidocaine patches and heat/ice. Recommend close follow-up with your PCP for reevaluation and to ensure improvement in symptoms. An electronic note was sent to their office to help coordinate this follow-up. If you have worsening pain, fevers, nausea, vomiting, or any other concerning symptoms please return to the emergency department immediately for reevaluation. documented in this encounter Medications at Time of Discharge [...] 09/17/2022 07/07/2023 documented as of this encounter ED Notes * Mirna Whitfield MD - 12/06/2022 11:28 PM EDT Chief Complaint Patient presents with ??? Flank Pain History obtained from: [x] patient [] patient and family [] family [] EMS [] [facility]DC paperwork [] External records in [facility] reviewed, when available. Additional records obtained from [] also reviewed. HPI this is a 46-year-old male with a history of hypertension and diverticulitis presenting to the emergency department with concern for right flank pain. Patient was seen in this emergency department approximately 1 week ago with left lower quadrant pain consistent with his history of diverticulitis. Patient was started on Augmentin which was scheduled to finish today. He reports feeling significantly better from his lower abdominal pain. Yesterday he developed sharp right flank pain. Today henotes pain is significantly worse and inability to find any position of comfort. Patient is 10/10 and stabbing. It does not radiate. Has never had similar pain previously. No prior trauma. Has been as sociated with nausea and 1 episode of nonbloody nonbilious vomiting today. He denies any other or recurrent lower abdominal pain. Pain is worsened by deep inspiration but no other significant shortness of breath or chest pain. No noted dysuria or hematuria. He notes decreased bowel movements over the last 2 days correlated with inability to tolerate oral intake. Allergies Allergen Reactions ??? Bactrim [Sulfamethoxazole-Trimethoprim] Hives and Other (See Comments) Fever, sweating, shortness of breath Pertinent Past Medical and Surgical Histories, Social History, Medications, Allergies were reviewedin the chart. Review of Systems as per HPI. Physical Exam Constitutional: General: He is not in acute distress. Appearance: He is well-developed. He is not diaphoretic. Cardiovascular: Rate and Rhythm: Normal rate and regular rhythm. Heart sounds: Normal heart sounds. Pulmonary: Effort: Pulmonary effort is normal. No respiratory distress. Breath sounds: Normal breath sounds. No wheezing or rales. Abdominal: General: Bowel sounds are normal. There is no distension. Palpations: Abdomen is soft. There is no mass. Tenderness: There is no abdominal tenderness. There is right CVA tenderness. There is no left CVA tenderness, guarding or rebound. Musculoskeletal: General: Normal range of motion. Cervical back: Normal range of motion. Skin: General: Skin is warm and dry. Neurological: Mental Status: He is alert and oriented to person, place, and time. Procedures MDM this is a 46-year-old male presenting to the emergency department with right-sided flank pain in the setting of recently diagnosed diverticulitis. Primary considerations include nephrolithiasis, pyelonephritis, complication of worsening diverticulitis, obstruction, pancreatitis, gallbladder pathology or other intra-abdominal infection. Considered aortic dissection however this is less likely based on history, physical exam and lack of other risk factors. Patient initially treated with pain control with morphine, Zofran and IV fluids with significant improvement in pain. Lab work-up notable for slightly increasing leukocytosis to 12.5 up from 11.7 at his recent visit. Otherwise reassuring CBC. BMP with mild hyponatremia but otherwise no significant electrolyte abnormalities and specifically noted normal creatinine making renal injury or infarct significantly less likely.. LFTs and lipase within normal limit. UA without evidence of hematuria or other infection. Patient was evaluated with CT abdomen and pelvis which was notable for improving diverticulitis butno other explanation for his symptoms. Specifically no renal pathology noted. Patient was hypertensive but otherwise hemodynamically stable throughout my time with him in the emergency department. Discussed work-up to this point with the patient. Unclear exactly what is causing his symptoms although given the description of pain started as muscle cramp, feels may represent soft tissue sprain/strain. We will plan for trial of outpatient management including rest, topical lidocaine patches, and Tylenol/ibuprofen. We will plan for close follow-up with PCP. Close return precautions discussed with the patient included in discharge instructions. [] Labs Reviewed COMPREHENSIVE METABOLIC PANEL (NON-FASTING) - Abnormal; Notable for the following components: Result Value Sodium 133 (*) Chloride 97 (*) All other components within normal limits HEMOGRAM - Abnormal; Notable for the following components: WBC 12.5 (*) RBC 4.56 (*) All other components within normal limits DIFFERENTIAL, AUTOMATED - Abnormal; Notable for the following components: Neutr Abs (ANC) 9.51 (*) Monocyte Abs 1.0 (*) All other components within normal limits CBC (WITH DIFF) GOLD TUBE HOLD BLUE TUBE HOLD URINALYSIS WITH REFLEX CULTURE LIPASE CT Abdomen & Pelvis w Contrast Final Result Improving colonic diverticulitis, with persistent residual inflammation. Preliminary report signed by: Daniel Calloway at 12/06/2022 11:49 PM I have personally reviewed the image(s) and the resident's interpretation and agree with the findings, Yaw Seay MD at 12/07/2022 12:24 AM Thank you for letting us participate in the care of this patient. If you are a health care provider and have any questions regarding this report, please contact the number below. For patients who have questions please contact the health client care coordinator that requested your imaging first. Did this case involve critical care? No 1. Flank pain Mirna Whitfield MD 12/07/22 0120 documented in this encounter Plan of Treatment Not on file documented as of this encounter Procedures Procedure Name Priority Date/Time Associated Diagnosis Comments CT ABDOMEN AND PELVIS W CONTRAST STAT 12/06/2022 11:30 PM EDT URINALYSIS WITH REFLEX CULTURE STAT 12/06/2022 11:26 PM EDT HEMOGRAM STAT 12/06/2022 9:17 PM EDT DIFFERENTIAL, AUTOMATED STAT 12/06/2022 9:17 PM EDT GOLD TUBE HOLD Routine 12/06/2022 9:17 PM EDT BLUE TUBE HOLD Routine 12/06/2022 9:17 PM EDT HC VENIPUNCTURE STAT 12/06/2022 9:17 PM EDT HC LIPASE STAT 12/06/2022 9:17 PM EDT COMPREHENSIVE METABOLIC PANEL STAT 12/06/2022 9:17 PM EDT documented in this encounter Results * CT Abdomen & Pelvis w Contrast (12/06/2022 11:30 PM EDT) Anatomical Region Laterality Modality Abdomen, Pelvis Computed Tomogra phy Impressions 12/07/2022 12:24 AM EDT Improving colonic diverticulitis, with persistent residual inflammation. Preliminary report signed by: Daniel Calloway at 12/06/2022 11:49 PM I have personally reviewed the image(s) and the resident's interpretation and agree with the findings, Yaw Seay MD at 12/07/2022 12:24 AM Thank you for letting us participate in the care of this patient. ??If you are a health care provider and have any questions regarding this report, please contact the number below. ??For patients who have questions please contact the health client care coordinator that requested your imaging first. ? Narrative 12/07/2022 12:24 AM EDT EXAMINATION: ??CT ABDOMEN AND PELVIS W CONTRAST CLINICAL HISTORY: ??Abdominal abscess/infection suspected; abdominal, flank pain s/p recent dx of diverticulitis TECHNIQUE: Helical CT of the abdomen and pelvis was performed following the intravenous administration of contrast. 110 cc of Omnipaque 350 was given. Absence of enteric contrast renders suboptimal assessment of bowel wall/lumen and surrounding soft tissue structures/viscera. COMPARISON: ??CT abdomen and pelvis with contrast 11/30/2022 FINDINGS: Included Lower Chest: Small hiatal hernia. Liver: Unremarkable. Gallbladder: Unremarkable. Spleen: Unremarkable. Pancreas: Unremarkable. Adrenal Glands: Unremarkable. RIGHT Kidney: Unremarkable. LEFT Kidney: Unremarkable. Urinary Bladder: Predominantly collapsed (precluding assessment). GI: The region of descending colonic bowel wall thickening and pericolonic stranding and fascial thickening is improved from prior exam, although with mild residual changes/inflammation. Nondilated bowel. Appendix appears unremarkable.. Mesentery/Peritoneum: No free air, loculated collection, or ascites identified. Vasculature: Incidental retroaortic left renal vein, a common variant. External Soft Tissues: Small fat-containing umbilical hernia. Osseous Structures: No acute abnormality identified. Procedure Note Yaw Seay MD - 12/07/2022 EXAMINATION: CT ABDOMEN AND PELVIS W CONTRAST CLINICAL HISTORY: Abdominal abscess/infection suspected; abdominal, flankpain s/p recent dx of diverticulitis TECHNIQUE: Helical CT of the abdomen and pelvis was performed followingthe intravenous administration of contrast. 110 cc of Omnipaque 350 wasgiven. Absence of enteric contrast renders suboptimal assessment of bowelwall/lumen and surrounding soft tissue structures/viscera. COMPARISON: CT abdomen and pelvis with contrast 11/30/2022 FINDINGS: Included Lower Chest: Small hiatal hernia. Liver: Unremarkable. Gallbladder: Unremarkable. Spleen: Unremarkable. Pancreas: Unremarkable. Adrenal Glands: Unremarkable. RIGHT Kidney: Unremarkable. LEFT Kidney: Unremarkable. Urinary Bladder: Predominantly collapsed (precluding assessment). GI: The region of descending colonic bowel wall thickening andpericolonic stranding and fascial thickening is improved from prior exam, althoughwith mild residual changes/inflammation. Nondilated bowel. Appendix appearsunremarkable.. Mesentery/Peritoneum: No free air, loculated collection, or ascitesidentified. Vasculature: Incidental retroaortic left renal vein, a common variant. External Soft Tissues: Small fat-containing umbilical hernia. Osseous Structures: No acute abnormality identified. IMPRESSION Improving colonic diverticulitis, with persistent residual inflammation. Preliminary report signed by: Daniel Calloway at 12/06/2022 11:49 PM I have personally reviewed the image(s) and the resident's interpretationand agree with the findings, Yaw Seay MD at 12/07/2022 12:24 AM Thank you for letting us participate in the care of this patient. If youare a health care provider and have any questions regarding this report,please contact the number below. For patients who have questions please contactthe health client care coordinator that requested your imaging first. Mirna Whitfield MD IMG CT ORDERABLES * Urinalysis with reflex Culture (12/06/2022 11:26 PM EDT) Glucose, Urine Dipstick Negative Negative mg/dL [facility] Protein, Urine Dipstick Negative Negative mg/dL [facility] Bilirubin, Urine Dipstick Negative Negative mg/dL [facility] Comment: Clinical correlation required for positive Urine Bilirubin results as false positive may occur with some drugs and drug related products. If a false positive is suspected a serum total bilirubin should be considered if clinically indicated. Urobilinogen, Urine Dipstick Normal Normal mg/dL [facility] pH, Urn (dipstick) 6.5 5.0 - 8.0 [facility] Blood, Urine Dipstick Negative Negative mg/dL [facility] Ketone, Urine Dipstick Negative Negative mg/dL [facility] Nitrite, Urine Dipstick Negative Negative [facility] Leukocytes, Urine Dipstick Negative Negative mcL [facility] Appearance, Urine Dipstick Clear Clear [facility] Specific [place] Urine Automated 1.021 1.005 - 1.030 [facility] Color, Urine Dipstick Yellow Yellow [facility] Reflex to Culture No [facility] Clean Catch Urine 12/06/2022 11:26 PM EDT 12/06/2022 11:40 PM EDT Narrative Resulting Agency Comment Spec In Lab Mirna Whitfield MD URINE ORDERABLES [facility] [address] [place] [id number] * Lipase (12/06/2022 9:17 PM EDT) Lipase 33 0 - 60 unit/L [facility] Blood 12/06/2022 9:17 PM EDT 12/06/2022 9:24 PM EDT Narrative Resulting Agency Comment Spec In Lab Mirna Whitfield MD CHEMISTRY ORDERABLE S Performing Organization Address [facility]/ZIP Co de Phone Number [facility] [address] [place] [address] * Blue Tube HOLD (12/06/2022 9:17 PM EDT) Blue Hold Sample in lab. [facility] Blood No Charge / Unknown 12/06/2022 9:17 PM EDT 12/06/2022 9:[address] Lilly HEMATOLOGY ORDERABLE S Performing Organization Address City/[facility]/ZIP Co de Phone Number [facility] [address] [place] [address] * Gold Tube HOLD (12/06/2022 9:17 PM EDT) Gold Hold Sample in lab. [facility] Blood No Charge / Unknown 12/06/2022 9:17 PM EDT 12/06/2022 9:20 PM EDT Lab CHEMISTRY ORDERABLES Performing Organization Address [facility] Co de Phone Number [facility] [address] [place] [phone] * (ABNORMAL) Differential, Automated (12/06/2022 9:17 PM EDT) Neutrophil % 75.9 % [facility] Neutrophil Absolute 9.51(H) 1.70 - 6.10 x10(3)/mc L [facility] Lymph % 14.9 % [facility] Lymphocytes Abs 1.9 0.9 - 3.2 x10(3)/mc L [facility] Monocyte % 8.1 % [facility] Monocyte Abs 1.0(H) 0.3 - 0.9 x10(3)/mc L [facility] Eos % 0.5 % [facility] Eosinophils Abs 0.1 0.0 - 0.4 x10(3)/mc L [facility] Basophil % 0.3 % [facility] Baso Absolute 0.0 0.0 - 0.1 x10(3)/mc L [facility] Immature Gran % 0.30 % [facility] Comment: Immature granulocytes(IG's)percentage and absolute count will include metamyelocytes, myelocytes, and promyelocytes. Blood smears from CBCs yielding IG's will be scanned manually for concordance. If this scan disagrees with the automated IG or if promyelocytes are noted, a manual differential will be performed. Immature Gran Absolute 0.04 0.00 - 0.04 x10(3)/mc L [facility] Blood 12/06/2022 9:17 PM EDT 12/06/2022 9:24 PM EDT Narrative Resulting Agency Comment Spec In Lab Mirna Whitfield MD HEMATOLOGY ORDERABL ES Performing Organization Address City/State/[facility] Co de Phone Number [facility] [address] [place], [place] [id number] * (ABNORMAL) Hemogram (12/06/2022 9:17 PM EDT) White Blood Cell 12.5(H) 4.0 - 9.5 x10(3)/mc L [facility] Red Blood Cell 4.56(L) 4.58 - 5.54 x10(6)/mc L [facility] Hemoglobin 14.6 13.7 - 16.5 g/dL [facility] Hematocrit 41.4 40.5 - 48.5 % [facility] Mean Cell Volume 90.8 82.9 - 93.1 fL [facility] Mean Cell Hemoglobin 32.0 27.5 - 32.1 pg [facility] Mean Cell Hemoglobin Concentration 35.3 32.0 - 35.7 g/dL [facility] Platelet 355 145 - 357 x10(3)/mc L [facility] RDW Standard Deviation 41.6 36.0 - 45.0 fL [facility] RDW coefficient of variation 12.5 11.4 - 13.8 % [facility] Mean Platelet Volume 8.6 7.6 - 12.9 fL [facility] NRBC% auto 0.0 % [facility] NRBC Absolute 0.000 0.000 - 0.000 x10(3)/mc L [facility] Blood 12/06/2022 9:17 PM EDT 12/06/2022 9:24 PM EDT Narrative Resulting Agency Comment Spec In Lab Mirna Whitfield MD HEMATOLOGY ORDERABL ES [facility] [address] [place] [address] * (ABNORMAL) Comprehensive metabolic panel (non-fasting) (12/06/2022 9:17 PM EDT) Glucose 106 65 - 199 mg/dL [facility] Comment:Diabetes: >=200 mg/d L plus symptoms Blood Urea Nitrogen 14 10 - 20 mg/dL [facility] Creatinine 1.05 0.80 - 1.50 mg/dL [facility] Sodium 133(L) 135 - 145 mmol/L [facility] Potassium 4.5 3.5 - 5.0 mmol/L [facility] Comment: Please note: ??Patients with WBC >100,000 may have falsely elevated Potassium levels. ??For accurate Potassium quantification in these patients send serum separator tube (gold top) for subsequent determinations. ??Contact the Clinical Chemistry Laboratory if there are any questions. Chloride 97(L) 98 - 107 mmol/L [facility] Carbon Dioxide 23 22 - 31 mmol/L [facility] Anion Gap 13 5 - 15 mmol/L [facility] Calcium 10.3 8.5 - 10.5 mg/dL [facility] Protein, Total 8.0 6.1 - 8.0 g/dL [facility] Albumin 4.5 3.2 - 5.2 g/dL [facility] Aspartate Aminotransferase 33 0 - 39 unit/L [facility] Alanine Aminotransferase 45 0 - 55 unit/L [facility] Alkaline Phosphatase 72 40 - 130 unit/L [facility] Bilirubin, Total 0.9 0.2 - 1.3 mg/dL [facility] Est Glomerular Filtration Rate 89 >=60 mL/min/1. 73 m?? [facility] Comment: This patient's estimated GFR was [...] and symptoms in addition to eGFR. Blood 12/06/2022 9:17 PM EDT 12/06/2022 9:24 PM EDT Narrative Resulting Agency Comment Spec In Lab Mirna Whitfield MD CHEMISTRY ORDERABLE S [facility] [address] [place] [address] documented in this encounter Visit Diagnoses Diagnosis Flank pain Abdominal pain, unspecified site documented in this encounter Administered Medications Inactive Administered Medications - up to 3 most recent administrations Medication Order MAR Action Action Date Dose Rate Site morphine (4 mg/mL) injection 4 mg 4 mg, Intravenous, ONCE, 1 dose, On Tue12/06/22 at 2330, STAT Given 12/06/2022 11:43 PM EDT 4 mg ondansetron (pf) (Zofran) (2 mg/mL) injection 4 mg 4 mg, Intravenous, ONCE, 1 dose, On Tue12/06/22 at 2330, STAT Given 12/06/2022 11:43 PM EDT 4 mg sodium chloride 0.9% infusion 1,000 mL, at 4,000 mL/hr, Intravenous, ONCE, 1 dose, On Tue12/06/22 at 2111 New Bag 12/06/2022 11:25 PM EDT 1,000 mLs 4000 mL/hr documented in this encounter Active and Recently Administered Medications Times are shown in EDT. Scheduled Medication Order 12/05/2022 12/06/2022 12/07/2022 morphine (4 mg/mL) injection 4 mg (COMPLETED) 4 mg, Intravenous, ONCE, 1 dose, On Tue12/06/22 at 2330, STAT 2343 (Given - Provider: Dominick Rahman, RN) ondansetron (pf) (Zofran) (2 mg/mL) injection 4 mg (COMPLETED) 4 mg, Intravenous, ONCE, 1 dose, On Tue12/06/22 at 2330, STAT 2343 (Given - Provider: Dominick Rahman, TETE) sodium chloride 0.9% infusion (COMPLETED) 1,000 mL, at 4,000 mL/hr, Intravenous, ONCE, 1 dose, On Tue12/06/22 at [id number] (New Bag - Provider: Jacob Rahman, TETE) documented in this encounter Care Teams Returns Processor Relationship Specialty Start Date End Date Belkys Houston MD [address] [place] [id number] PCP - General Family Medicine 06/21/22 08/11/23 documented as of this encounter
--- OUTSIDE RECORDS SUMMARY | 2024-08-07 10:36 | XMS_ITS | Encounter Summary ---
Author Organization [facility] Address [facility] [place] [address] Care Team Providers Care Commissary Assistant Name Role Phone Belkys Houston MD Primary Care Provider [phone] Encounter Details Date Type Department Care Team (Latest Contact Info) Description 06/08/2023 6:39 PM EDT Hospital Encounter XRay at [address] [phone] Destinee Escamilla, PROP MAKING SUPERVISOR [address] [place] [phone] Pain in right hip Discharge Disposition: Home Social History Tobacco Use [...] Name Priority Date/Time Associated Diagnosis Comments XR LUMBAR SPINE 2 OR 3 VIEWS STAT 06/08/2023 6:48 PM EDT Pain in right hip documented in this encounter Results * XR Lumbar Spine 2 Or 3 Views (Generic) (06/08/2023 6:48 PM EDT) Anatomical Region Laterality Modality L-spine N/A Computed Radiogr aphy Impressions 06/09/2023 7:37 AM EDT Mild degenerative lumbar spondylosis. No acute findings. Thank you for letting us participate in the care of this patient. ??If you are a health care provider and have any questions regarding this report, please contact the number below. ??For patients who have questions please contact the health post acute care registered nurse that requested your imaging first. ? Electronically signed by: DANIELE JOSEPH MD, [facility] ([phone]), at 06/09/2023 7:37 AM Narrative 06/09/2023 7:37 AM EDT EXAMINATION: XR LUMBAR SPINE 2 OR 3 VIEWS (GENERIC) CLINICAL HISTORY: right hip pain with numbness and tingling x 1 week TECHNIQUE: 2 views of the lumbar spine COMPARISON: None FINDINGS: Normal lumbar spine alignment. There are minor degenerative disc changes through all levels of lumbar spine characterized by subtle vertebral body spurring. The disc spaces and vertebral body height are well-maintained. There are mild to moderate degenerative facet changes at L4-5 and L5-S1. No trauma nor focal vertebral subluxation. The gas pattern is normal. Procedure Note Daniele Joseph MD - 06/09/2023 EXAMINATION: XR LUMBAR SPINE 2 OR 3 VIEWS (GENERIC) CLINICAL HISTORY: right hip pain with numbness and tingling x 1 week TECHNIQUE: 2 views of the lumbar spine COMPARISON: None FINDINGS: Normal lumbar spine alignment. There are minor degenerative disc changesthrough all levels of lumbar spine characterized by subtle vertebral bodyspurring. The disc spaces and vertebral body height are well-maintained. There are mildto moderate degenerative facet changes at L4-5 and L5-S1. No trauma nor focal vertebral subluxation. The gas pattern is normal. IMPRESSION Mild degenerative lumbar spondylosis. No acute findings. Thank you for letting us participate in the care of this patient. If youare a health care provider and have any questions regarding this report,please contact the number below. For patients who have questions please contactthe health post acute care registered nurse that requested your imaging first. Electronically signed by: DANIELE JOSEPH MD, [facility]([phone]), at 06/09/2023 7:37 AM Destinee Escamilla APRN IMG DX ORDERABLES documented in this encounter Visit Diagnoses Diagnosis Pain in right hip Pain in joint, pelvic region and thigh documented in this encounter Care Teams Commissary Assistant Relationship Specialty Start Date End Date Belkys Houston MD [address] [place] [id number] PCP - General Family Medicine 06/21/22 08/11/23 documented as of this encounter
--- OUTSIDE RECORDS SUMMARY | 2024-08-07 10:36 | XMS_ITS | Encounter Summary ---
Author Organization [facility] Address [facility] [place] [address] Care Team Providers Care Computer Systems Auditor Name Role Phone Belkys Houston MD Primary Care Provider [phone] Encounter Details Date Type Department Care Team (Latest Contact Info) Description 03/26/2023 Travel Social History Tobacco Use Types Packs/Day [...] on filedocumented in this encounter Care Teams Computer Systems Auditor Relationship Specialty Start Date End Date Belkys Houston MD [address] [place] [id number] PCP - General Family Medicine 06/21/22 08/11/23 documented as of this encounter
--- OUTSIDE RECORDS SUMMARY | 2024-08-07 10:36 | XMS_ITS | Encounter Summary ---
Author Organization [facility] Address [facility] [place] [address] Care Team Providers Care Chip Mixer Name Role Phone Belkys Houston MD Primary Care Provider [phone] Encounter Details Date Type Department Care Team (Latest Contact Info) Description 12/06/2022 11:10 PM EDT - 12/06/2022 11:59 PM EDT Hospital Encounter CAT Scan at [address] [phone] Discharge Disposition: Home Social History [...] W CONTRAST STAT 12/06/2022 11:30 PM EDT documented in this encounter Visit Diagnoses Not on filedocumented in this encounter Administered Medications Inactive Administered Medications - up to 3 most recent administrations Medication Order MAR Action Action Date Dose Rate Site iohexoL (Omnipaque) (350 mg/mL) solution 100 mL 100 mL, Intravenous, ONCE PRN, 1 dose, Starting on Tue12/06/22 at 2330, Until Tue12/06/22 at 2337, Per Protocol, Warning Vesicant/Irritant Medication , Routine Given 12/06/2022 11:37 PM EDT 100 mLs documented in this encounter Care Teams Chip Mixer Relationship Specialty Start Date End Date Belkys Houston MD [address] [place] [id number] PCP - General Family Medicine 06/21/22 08/11/23 documented as of this encounter
--- OUTSIDE RECORDS SUMMARY | 2024-08-07 10:36 | XMS_ITS | Encounter Summary ---
Author Organization [facility] Address [facility] [place] [address] Care Team Providers Care Broker Agricultural Produce Name Role Phone Belkys Houston MD Primary Care Provider [phone] Encounter Details Date Type Department Care Team (Late st Contact Info) Description 10/25/2022 Telephone Gastroenterology and Hepatology at [address] [phone] Nely Salcido RN Social History Tobacco Use Types Packs/Day [...] encounter Miscellaneous Notes * Telephone Encounter - Nely Salcido RN - 10/25/2022 9:51 AM EST Pt LVM stating that no colo prep was available at pharmacy. Per notes pt was to prep for procedure with OTC Miralax and Dulcolax. Spoke to pt who confirmed that he found paper work, was able to obtain products and preform prep asdirected for procedure today, 10/25. documented in this encounter Plan of Treatment Not on file documented as of this encounter Visit Diagnoses Not on filedocumented in this encounter Care Teams Broker Agricultural Produce Relationship Specialty Start Date End Date Belkys Houston MD [address] [place] [address] [place] [address] PCP - General Family Medicine 06/21/22 08/11/23 documented as of this encounter
--- OUTSIDE RECORDS SUMMARY | 2024-08-07 10:36 | XMS_ITS | Encounter Summary ---
Author Organization [facility] Address [facility] [place] [address] Care Team Providers Care Presales Engineer Name Role Phone Belkys Houston MD Primary Care Provider [phone] Encounter Details Date Type Department Care Team (Latest Contact Info) Description 12/06/2022 Travel Social History Tobacco Use Types Packs/Day [...] on filedocumented in this encounter Care Teams Presales Engineer Relationship Specialty Start Date End Date Belkys Houston MD [address] [place] [id number] PCP - General Family Medicine 06/21/22 08/11/23 documented as of this encounter
--- OUTSIDE RECORDS SUMMARY | 2024-08-07 10:36 | XMS_ITS | Encounter Summary ---
Author Organization [facility] Address [facility] [place] [address] Care Team Providers Care Haircutter Name Role Phone Belkys Houston MD Primary Care Provider [phone] Encounter Details Date Type Department Care Team (Latest Contact Info) Description 06/16/2023 12:30 PM EDT - 06/16/2023 12:44 PM EDT Hospital Encounter XRay at [address] [id number] Amber Eastman N, TIP PUNCHER [address] [place] [phone] Pain and swelling of right lower leg [...] Name Priority Date/Time Associated Diagnosis Comments XR FOOT MIN 3 VIEWS RIGHT Routine 06/16/2023 12:58 PM EDT Pain and swelling of right lower leg documented in this encounter Results * XR Foot Min 3 views Right (Generic) (06/16/2023 12:58 PM EDT) Anatomical Region Laterality Modality Foot Right Computed Radiogr aphy Impressions 06/16/2023 2:08 PM EDT There is no fracture or dislocation. Joint spaces are maintained. 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 ?? Thank you for letting us participate in the care of this patient. ??If you are a health care provider and have any questions regarding this report, please contact the number below. ??For patients who have questions please contact the health health care coordinator that requested your imaging first. ? Electronically signed by: PRUDENCIO GREEN MD, [facility] ([phone]), at 06/16/2023 2:08 PM Narrative 06/16/2023 2:08 PM EDT EXAMINATION: XR FOOT MIN 3 VIEWS RIGHT (GENERIC) CLINICAL INDICATION: increased foot swelling and pain TECHNIQUE: 3 views right foot COMPARISON: None. FINDINGS: There is no fracture or dislocation. Joint spaces are maintained. 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 Procedure Note Prudencio Green MD - 06/16/2023 EXAMINATION: XR FOOT MIN 3 VIEWS RIGHT (GENERIC) CLINICAL INDICATION: increased foot swelling and pain TECHNIQUE: 3 views right foot COMPARISON: None. FINDINGS: There is no fracture or dislocation. Joint spaces are maintained. Mildto moderate tibiotalar joint arthritis. IMPRESSION There is no fracture or dislocation. Joint spaces are maintained. Mildto moderate tibiotalar joint arthritis. Thank you for letting us participate in the care of this patient. If youare a health care provider and have any questions regarding this report,please contact the number below. For patients who have questions please contactthe health health care coordinator that requested your imaging first. Electronically signed by: PRUDENCIO GREEN MD, [facility] ([phone]), at 06/16/2023 2:08 PM Amber Eastman DIAMOND IMG DX ORDERABLES documented in this encounter Visit Diagnoses Diagnosis Pain and swelling of right lower leg documented in this encounter Care Teams Haircutter Relationship Specialty Start Date End Date Belkys Houston MD [address] [place] [address] [place] [id number] PCP - General Family Medicine 06/21/22 08/11/23 documented as of this encounter
--- OUTSIDE RECORDS SUMMARY | 2024-08-07 10:36 | XMS_ITS | Encounter Summary ---
Author Organization Formerly [facility] Address [facility] [place] [address] Care Team Providers Care Oil Well Gun Perforator Operator Name Role Phone Belkys [place] MD Primary Care Provider [phone] Reason for Visit * Auth/Cert (Routine) Specialty Diagnoses / Procedures Referred By Contmaryjo t Referred To Contact Diagnoses Black tarry stools black tarry stools Procedures PRO COLONOSCOPY, DIAGNOSTIC PRO UPPER GI ENDOSCOPY, DIAGNOSTIC PRO COLONOSCOPY, BIOPSY PRO COLONOSCOPY, REMV LESN, SNARE PRO UPPER GI ENDOSCOPY, BIOPSY PRO UP GI ENDOSCOPY, REMV TUMOR, SNARE PRO ANESTH, LWR INTESTINE, NOS PRO ANESTH, UGI ENDOSCOPY NOS COLONOSCOPY, DIAGNOSTIC EGD, UPPER GI ENDOSCOPY Maite Barraza MD [address] [place] [id number] [facility] Referral ID Status Reason Start Date Expiration Date Visits Re quested Visits Authorized [id number] 1 1 Encounter Details Date Type Department Care Team ([facility] st Contact Info) Description 10/25/2022 12:30 PM EST - 10/25/2022 1:15 PM EST Surgery Endoscopy at [address] [id number] Maite Barraza MD [address] [place] [id number] COLONOSCOPY, DIAGNOSTIC (WRVU 3.26) Social History Tobacco Use Types Packs/Day Years Used Date Smoking Tobacco: Former Cigarettes 2021 Smokeless Tobacco: Never Tobacco Cessation:Counseling Given: Not Answered Comments:Doesn't smoke during the week. Alcohol Use Standard Drinks/Week Comments Yes 14 (1 standard drink = 0.6 oz pu re alcohol) maybe a beer after work Sex and Gender Information Value Date Recorded Sex Assigned at Not on file Gender Identity Not on file Sexual Orientation Not on file documented as of this encounter Last Filed Vital Signs Vital Sign Reading Time Taken Comments Blood Pressure 149/95 10/25/2022 11:43 AM EST Pulse 78 10/25/2022 11:43 AM EST Temperature 36.8 ??C (98.3 ??F) 10/25/2022 11:[address] Respiratory Rate 24 10/25/2022 11:43 AM EST Oxygen Saturation 96% 10/25/2022 11:43 AM EST Inhaled Oxygen Concentration - - Weight 108.9 kg (240 lb) 10/25/2022 11:43 AM EST Height 180.3 cm (5' 11) 10/25/2022 11:43 AM EST Body Mass Index 33.47 10/25/2022 11:43 AM EST documented in this encounter Medications at Time of Discharge Medication Sig Dispensed Refills Start Date End Date omeprazole (PriLOSEC) 40 mg Capsule, Delayed Release(E.C.) [...] 09/17/2022 07/07/2023 documented as of this encounter Progress Notes * Carrie Mckeon, TETE - 10/25/2022 2:17 PM EST 1400 Patient transported via stretcher from gi to pacu Side rails up x 2 Simple mask and Nasal trumpet in place 1412 Mask to room air and trumpet d/c'd 1445 Patient awake, assisted to high fowlers Tolerates fluids, denies abdominal/chest discomfort. Monitor and iv d/c'd Dressed self D/C instructions, procedure results an sleep apnea precautions reviewed with patient. 1509 Ambulated with patient to pacu exit for d/c documented in this encounter H&P Notes * Maite Barraza MD - 10/25/2022 1:12 PM EST Patient Name: Demetrio Rivers Patient Age: 46 y.o. Birthdate: 1975 Admit date: 10/25/2022 Attending Physician: Maite Barraza MD Gastroenterology and Hepatology Pre-Procedure History and Physical Exam Procedure: EGD: Colonoscopy: Indication: CRC screening, melena Hx of colonoscopy for follow up diverticulitis 2020 at [facility] with 1 polyp and diverticulosis. Had abd pain with question of recurrent diverticulitis and black stool in April, self resolved and now feeling well. Also has been taking significant amounts of NSAIDs for knee pain. Not on PPI. FHx of CRCin his mother in her late 50s. Patient Active Problem List Diagnosis Code ??? Primary hypertension I10 ??? Osteoarthritis of right knee M17.11 ??? Tubular adenoma of colon D12.6 ??? Diverticulitis of both small and large intestine without perforation or abscess with bleeding K57.53 EXAM: HEENT: Airway examined, oropharynx clear Mallampati Score: see anesthesia note LUNGS: Clear to auscultation HEART: Regular rate and rhythm, normal S1, S2 ABDOMEN: Normal bowel sounds, soft, non tender, non distended, A/P Proceed with the planned endoscopic procedure. ASA 3 - Patient with moderate systemic disease with functional limitations Sedation Plan: anesthesia Risks and benefits of the procedure explained to the patient. Consent signed. Maite Barraza MD Gastroenterology 10/25/2022 1:12 PM Pager #[phone] documented in this encounter Plan of Treatment Not on file documented as of this encounter Procedures Procedure Name Priority Date/Time Associated Diagnosis Comments SPECIMEN TO PATHOLOGY Routine 10/25/2022 1:56 PM EST SPECIMEN TO PATHOLOGY Routine 10/25/2022 1:56 PM EST SPECIMEN TO PATHOLOGY Routine 10/25/2022 1:56 PM EST SURGICAL PATHOLOGY REPORT Routine 10/25/2022 1:24 PM EST SPECIMEN TO PATHOLOGY Routine 10/25/2022 1:24 PM EST Upper GI Endoscopy, Diagnostic ([id number]) 10/25/2022 1:10 PM EST black tarry stools Colonoscopy, Diagnostic (45517) 10/25/2022 1:10 PM EST black tarry stools GI PROVATION PATIENT INSTRUCTIONS Routine 10/25/2022 12:34 PM EST UPPER GI ENDOSCOPY Routine 10/25/2022 12 :34 PM EST GI PROVATION PATIENT INSTRUCTIONS Routine 10/25/2022 12:33 PM EST COLONOSCOPY Routine 10/25/2022 12:33 PM EST documented in this encounter Results * Specimen to Pathology (10/25/2022 1:56 PM EST) AP Specimen 10/25/2022 1:56 PM EST 10/25/2022 1:56 PM EST Narrative [facility] - 10/25/2022 1:56 PM EST Specimen requisition ordered. ??Separate Pathology report to follow Maite Barraza MD PATHOLOGY/CYTOLOGY O KLEBER [facility] [place] [address] * Specimen to Pathology (10/25/2022 1:56 PM EST) AP Specimen 10/25/2022 1:56 PM EST 10/25/2022 1:56 PM EST Narrative [facility] - 10/25/2022 1:56 PM EST Specimen requisition ordered. ??Separate Pathology report to follow Maite Barraza MD PATHOLOGY/CYTOLOGY O KLEBER Performing Organization Address [facility] [place] [address] * Specimen to Pathology (10/25/2022 1:56 PM EST) AP Specimen 10/25/2022 1:56 PM EST 10/25/2022 1:56 PM EST Narrative [facility] - 10/25/2022 1:56 PM EST Specimen requisition ordered. ??Separate Pathology report to follow Maite Barraza MD PATHOLOGY/CYTOLOGY O KLEBER Performing Organization Address [facility] [place] [address] * Surgical Pathology Report (10/25/2022 1:24 PM EST) Final Diagnosis [id number] ? Location: [facility]; [facility]; A The signing pathologist has (i) examined the relevant preparation(s) for the specimen(s) and (ii) rendered or confirmed the diagnosis(es). . ?Surgical Pathology DIAGNOSIS A - ??DISTAL ESOPHAGUS, BIOPSY: 1. SQUAMOUS MUCOSA WITH ULCERATION, MODERATE ACUTE AND CHRONIC INFLAMMATION AND GRANULATION TISSUE. 2. ??NEGATIVE FOR INCREASED INTRAEPITHELIAL EOSINOPHILS. B - ??COLON, CECUM, BIOPSY: SERRATED POLYP. C - ??COLON, DESCENDING, BIOPSY: SERRATED POLYP AND TUBULAR ADENOMA. D - ??COLON, SIGMOID, BIOPSY: SERRATED POLYP. CR-PX Electronically signed by: ?Sherine Garza MD Verified: ??10/26/2022 13:00 ??Pathologist Performed at: ??[facility] Dept of Pathology, [address] [place] [address] Jawbone Puller: Florina Gordillo MD, ??CLIA Certificate: [id number] SPECIMEN(S) SUBMITTED A - Distal esophagus bx, biopsy (Multiple) B - Cecal polyp, excision (1) C - Descending colon polyp, excision (1) D - Sigmoid colon polyps, excision (3) CLINICAL INFORMATION EGD/[place] - Black, tarry stools A - Esophagitis B-C Polyp x1 D - Polyp x3 SPECIMEN PROCESSING A - ??Received in formalin labeled with the patient's name and distal esophagus are multiple knight soft tissues, 0.2-0.3 cm. Submitted in toto in a single cassette. B -received in formalin labeled cecal polyp is a 0.9 x 0.6 cm knight soft tissue. The specimen is bisected and entirely submitted in a single cassette. C - ??Received in formalin labeled with the patient's name and descending ??are multiple knight soft tissues, 0.2-0.4 cm. Submitted in toto in a single cassette. D - received in formalin labeled sigmoid are multiple knight soft tissues ranging from 0.2-0.6 cm. Submitted in toto in a single cassette. ??clc 10/26/2022 1:00 PM EST [facility] GI Biopsy 10/25/2022 1:24 PM EST 10/25/2022 1:24 PM EST GI Biopsy 10/25/2022 1:24 PM EST 10/25/2022 1:24 PM EST GI Biopsy 10/25/2022 1:24 PM EST 10/25/2022 1:24 PM EST GI Biopsy 10/25/2022 1:24 PM EST 10/25/2022 1:24 PM EST Maite Barraza MD PATHOLOGY/CYTOLOGY O RDERABLES [facility] [place] [address] [facility] [address] [place] [id number] * Specimen to Pathology (10/25/2022 1:24 PM EST) AP Specimen 10/25/2022 1:24 PM EST 10/25/2022 1:24 PM EST Narrative [facility] - 10/25/2022 1:24 PM EST Specimen requisition ordered. ??Separate Pathology report to follow Maite Barraza MD PATHOLOGY/CYTOLOGY O KLEBER [facility] [place] [address] * Patient Instructions (10/25/2022 12:34 PM EST) GI Provation Patient Instruction ENDOSCOPY UNIT Discharge Instructions Patient Name: ?Demetrio Rivers Date of : ?1975 Attending Physician:Lynnette Barraza MD Date of Procedure: ?? Tuesday, October 25, 2022 Today's Procedure: Upper GI endoscopy Indication: Melena Your Doctor's Findings: The Z-line was irregular and was found 38 cm from the incisors. LA Grade B (one or more mucosal breaks greater than 5 mm, not extending between the tops of two mucosal folds) esophagitis with no bleeding was found. ??Biopsies were taken with a cold forceps for histology. A 5 cm hiatal hernia was present. The stomach was normal. The cardia and gastric fundus were normal on retroflexion. Localized mildly erythematous mucosa without active bleeding and with no stigmata of bleeding was found in the duodenal bulb. Your Doctor's Recommendations: We are waiting for your pathology results. Take Prilosec (omeprazole) 40 mg by mouth once a day. Your physician has recommended a colonoscopy today. Upper Endoscopy Procedures 1. It is necessary that someone drive you home because even if you do not feel tired or sleepy, your judgement and reflexes will not be normal. It is recommended that you do not drive, drink alcoholic beverages or sign legal documents for 24 hours. Also, operating electrical devices or machinery should not be attempted until the effects of the medication wear off. (24 hours is suggested) 2.Localized irritation of the vein may occur at the site of medication injection. A warm moist face cloth wrapped around the area with a saran wrap covering to hold the heat in, four times a day for 20 minutes will help. 3.Notify your physician if you experience excessive cramping or abdominal pain, chest pain, fever, regurgitation or vomiting of blood, or excessive rectal bleeding (1/2 cup or more). It is not unusual to have a small amount of bleeding from the biopsy or polyp removal site. 4.The Doctor's office will notify you of biopsy results by phone or letter in about two weeks. 5.You may experience some abdominal bloating or gas for a couple hours after the procedure, this is normal. Air was introduced during the examination. 6. Medicine may have been given for the procedure to numb your gag reflex. Do not eat, drink or smoke until your gag reflex returns (Usually 30 minutes to 1 hour after the procedure) 7. Your throat may be a little sore after the procedure - this is not unusual. 8. If you have any problems or questions regarding your procedure please call Maite Barraza MD at [phone] After 5pm Tuesday-Tuesday and on weekends or holidays please call [phone] and the hospital cardiograph operator can page the pigeon fancier ?gastroenterolo gist to return your call. Maite Barraza MD ___ Maite Barraza MD 10/25/2022 1:27:30 PM This report has been signed electronically. PROVATION 10/25/2022 12:3 4 PM EST Maite Barraza MD INFORMATIONAL ONL Y Performing Organization Address City/State/[facility] Co de Phone Number PROVATION * UPPER GI ENDOSCOPY (10/25/2022 12:34 PM EST) UPPER GI ENDOSCOPY ___ Patient Name: Demetrio Rivers Procedure Date: 10/25/2022 12:34 PM ?Attending MD: Maite Barraza MD Date of : 1975 ? Order #: [id number] Age: 46 ?Instrument Name: [id number] ___ Procedure: ? Upper GI endoscopy Indications: ? Melena Providers: ? Maite Barraza MD, Shakila ? Chidi, TETE, Laurie Farmer MD: ?Belkys [place] Medicines: ? Monitored Anesthesia Care Complications: ? [...] nurse, the ? anesthesiologist and the ? bmw service technician. The procedure was ? verified in the endoscopy suite. ? The procedure, indications, ? benefits, risks and alternatives ? were explained to the patient. ? Specifically discussed were ? potential complications including, ? but not limited to, bleeding, ? perforation, infection, missing a ? cancer, and adverse medication ? reactions. The Endoscope was ? introduced through the mouth, and ? advanced to the third part of ? duodenum The upper GI endoscopy was ? accomplished without difficulty. ? The patient tolerated the procedure ? well. ? Findings: ? The Z-line was irregular and was found 38 cm from the ? incisors. ? LA Grade B (one or more mucosal breaks greater than 5 ? mm, not extending between the tops of two mucosal ? folds) esophagitis with no bleeding was found. ? Biopsies were taken with a cold forceps for histology. ? A 5 cm hiatal hernia was present. ? The stomach was normal. ? The cardia and gastric fundus were normal on ? retroflexion. ? Localized mildly erythematous mucosa without active ? bleeding and with no stigmata of bleeding was found ? in the duodenal bulb. ? Impression: ?- Z-line irregular, 38 cm from the ? incisors. ? - LA Grade B reflux esophagitis ? with no bleeding. Biopsied. ? - 5 cm hiatal hernia. ? - Normal stomach. ? - Erythematous duodenopathy. Recommendation: ?- Await pathology results. ? - Use Prilosec (omeprazole) 40 mg ? PO daily. ? - Perform a colonoscopy today. ? Procedure Code(s): ? --- Professional --- ? 93324, Esophagogastroduode noscopy, ? flexible, transoral; with biopsy, ? single or multiple Diagnosis Code(s): ? --- Professional --- ? K22.89, Other specified disease of ? esophagus ? K21.00, Gastro-esophageal reflux ? disease with esophagitis, without ? bleeding ? K44.9, Diaphragmatic hernia without ? obstruction or gangrene ? K92.1, Melena (includes ? Hematochezia) ? --- Technical --- ? K22.89, Other specified disease of ? esophagus ? K21.00, Gastro-esophageal reflux ? disease with esophagitis, without ? bleeding ? K44.9, Diaphragmatic hernia without ? obstruction or gangrene ? K92.1, Melena (includes ? Hematochezia) CPT copyright 2021 [employer]. All rights reserved. The codes documented in this report are preliminary and upon textile machine operator review may be revised to meet current compliance requirements. Maite Barraza MD Maite Barraza MD 10/25/2022 1:27:30 PM This report has been signed electronically. Number of Addenda: 0 PROVATION 10/25/2022 12:3 4 PM EST Maite Barraza MD GENERAL SURGICAL ORD ERABLES PROVATION * Patient Instructions (10/25/2022 12:33 PM EST) GI Provation Patient Instruction ENDOSCOPY UNIT Discharge Instructions Patient Name: ?Demetrio Rivers Date of : ?1975 Attending Physician:Lynnette Barraza MD Date of Procedure: ?? Tuesday, October 25, 2022 Today's Procedure: Colonoscopy Indication: Screening for colorectal malignant neoplasm, Screening in patient at increased risk: Colorectal cancer in mother before age 60 Your Doctor's Findings: The perianal and digital rectal examinations were normal. The terminal ileum appeared normal. A 10 mm polyp was found in the cecum. ??The polyp was flat. ??The polyp was removed with a cold snare. ??Resection and retrieval were complete. A 4 mm polyp was found in the descending colon. ??The polyp was flat. ??The polyp was removed with a cold snare. ??Resection and retrieval were complete. Five flat, pedunculated and sessile polyps were found in the sigmoid colon. ??The polyps were 5 to 8 mm in size. ??These polyps were removed with a cold snare. ??Resection and retrieval were complete. Many small and large-mouthed diverticula were found in the sigmoid colon. Internal hemorrhoids were found during retroflexion. ??The hemorrhoids were medium-sized. Your Doctor's Recommendations: You are being discharged to home. Eat a high fiber diet. Continue your present medications. We are waiting for your pathology results. Your physician has recommended a repeat colonoscopy (date to be determined after pending pathology results are reviewed) for surveillance based on pathology results. Take a fiber supplement, for example Citrucel, Fibercon, Konsyl or Metamucil, daily to prevent worsening diverticulosis. Lower Endoscopy Procedures 1. It is necessary that someone drive you home because even if you do not feel tired or sleepy, your judgement and reflexes will not be normal. It is recommended that you do not drive, drink alcoholic beverages or sign legal documents for 24 hours. Also, operating electrical devices or machinery should not be attempted until the effects of the medication wear off. (24 hours is suggested) 2.Localized irritation of the vein may occur at the site of medication injection. A warm moist face cloth wrapped around the area with a saran wrap covering to hold the heat in, four times a day for 20 minutes will help. 3.Notify your physician if you experience excessive cramping or abdominal pain, chest pain, fever, regurgitation or vomiting of blood, or excessive rectal bleeding (1/2 cup or more). It is not unusual to have a small amount of bleeding from the biopsy or polyp removal site. 4.The Doctor's office will notify you of biopsy results by phone or letter in about two weeks. 5.You may experience some abdominal bloating or gas for a couple hours after the procedure, this is normal. Air was introduced during the examination. 6. If you have any problems or questions regarding your procedure please call Maite Barraza MD at #[phone] After 5pm Tuesday-Tuesday and on weekends or holidays please call [phone] and the hospital cardiograph operator can page the pigeon fancier ?gastroenterolo gist to return your call. Maite Barraza MD ___ Maite Barraza MD 10/25/2022 2:02:02 PM This report has been signed electronically. PROVATION 10/25/2022 12:3 3 PM EST Maite Barraza MD INFORMATIONAL ONL Y [employer]OVATION * COLONOSCOPY (10/25/2022 12:33 PM EST) COLONOSCOPY ___ Patient Name: Demetrio Rivers Procedure Date: 10/25/2022 12:33 PM ?Attending MD: Maite Barraza MD Date of : 1975 ? Order #: [id number] Age: 46 ?Instrument Name: [id number] ___ Procedure: ? Colonoscopy Indications: ? Screening for colorectal malignant ? neoplasm, Screening in patient at ? increased risk: Colorectal cancer ? in mother before age 60 Providers: ? Maite Barraza MD, Shakila ? Chidi, TETE, Laurie Mendes Referring : ?Belkys [place] Medicines: ? Monitored Anesthesia Care Complications: ? [...] nurse, the ? anesthesiologist and the ? bmw service technician. The procedure was ? verified in [...] Procedure Code(s): ? --- Professional --- ? 64877, Colonoscopy, flexible; with ? removal of tumor(s), [...] ? abscess without bleeding CPT copyright 2020 [employer]. All rights reserved. The codes documented in this report are preliminary and upon textile machine operator review may be revised to meet current compliance requirements. Maite Barraza MD Maite Barraza MD 10/25/2022 2:02:02 PM This report has been signed electronically. Number of Addenda: 0 PROVATION 10/25/2022 12:3 3 PM EST Maite Barraza MD GENERAL SURGICAL ORD ERABLES PROVATION documented in this encounter Visit Diagnoses Not on filedocumented in this encounter Administered Medications Inactive Administered Medications - up to 3 most recent administrations Medication Order MAR Action Action Date Dose Rate Site lactated ringers infusion 500 mL, at 50 mL/hr, Intravenous, CONTINUOUS, Starting on Tue10/25/22 at 1145, Until Tue10/25/22 at 1521, Day of Surgery (Day of Procedure) New Bag 10/25/2022 1:55 PM EST New Bag 10/25/2022 11:45 AM EST 500 mLs 50 mL/hr documented in this encounter Active and Recently Administered Medications Times are shown in EST. Continuous Medication Order 10/23/2022 10/24/2022 10/25/2022 lactated ringers infusion (CANCELED) 500 mL, at 50 mL/hr, Intravenous, CONTINUOUS, Starting on Tue10/25/22 at 1145, Until Tue10/25/22 at 1521, Day of Surgery (Day of Procedure) 1145 (New Bag - Prov ider: Amber Francis RN)1354 (Paused - Provider: Rachel Villarreal MD - Comment: Switch to gravity)1355 (New Bag - Provider: Rachel Villarreal MD)1402 (Anesthesia Volume Adjustment - Provider: Rachel Villarreal MD)1521 (Due: Stopped) No Frequency Medication Order 10/23/2022 10/24/2022 10/25/2022 benzocaine (Hurricane One) 20 % spray Starting on Tue10/25/22 at 1309, 1 dose, Until Tue10/25/22 at 1722, Shakila Murillo: cabinet override 1315 (Due) simethicone (Mylicon) 40 mg/0.6 mL oral liquid 1 dose, Starting on Tue10/25/22 at 1332, Until Tue10/25/22 at 1722, Shakila Murillo: cabinet override 1345 (Due) documented in this encounter Care Teams Oil Well Gun Perforator Operator Relationship Specialty Start Date End Date Belkys [place] MD [address] [place] [id number] PCP - General Family Medicine 06/21/22 08/11/23 documented as of this encounter
--- OUTSIDE RECORDS SUMMARY | 2024-08-07 10:36 | XMS_ITS | Encounter Summary ---
Author Organization Formerly [facility], 1927–[address] [facility] [place] [address] Care Team Providers Care Shank Threader Name Role Phone Belkys Houston MD Primary Care Provider [phone] Reason for Visit * Reason Onset Date Comments Triage 06/15/2023 Foot Swelling 06/15/2023 Encounter Details Date Type Department Care Team (Late st Contact Info) Description 06/15/2023 Nurse Triage Primary Care at [place] [address] [place] [address] Belkys Houston MD [address] [place], [place] [id number] Triage; Foot Swelling Social History Tobacco Use Types Packs/Day Years [...] encounter Miscellaneous Notes * Telephone Encounter - Cammy Murcia LPN - 06/15/2023 9:19 AM EDT Reason for Disposition Patient wants to be seen Answer Assessment - Initial Assessment Questions 1. ONSET: When did the pain start? Week ago 2. LOCATION: Where is the pain located? R foot 3. PAIN: How bad is the pain? (Scale 1-10; or mild, moderate, severe) - MILD (1-3): doesn't interfere with normal activities. - MODERATE (4-7): interferes with normal activities (e.g., work or school) or awakens from sleep, limping. - SEVERE (8-10): excruciating pain, unable to do any normal activities, unable to walk. Mild but getting worse 4. WORK OR EXERCISE: Has there been any recent work or exercise that involved this part of the body? no 5. CAUSE: What do you think is causing the foot pain? unknown 6. OTHER SYMPTOMS: Do you have any other symptoms? (e.g., leg pain, rash, fever, numbness) No other symptoms- denies SOB 7. : Is there any chance you are ? When was your last menstrual period? N/A Protocols used: Foot Pain-A-OH Reason for Call: Triage and Foot Swelling Brief Health History (Onset, Location, Duration, Characteristics, Aggravating Factors, Relieving Factors/Radiation,Timing, and Severity): female caller reports that pt has been having swelling in hisR foot x 1 week and it is more painful to walk now Denies SOB or redness in the foot and not up past the foot Requesting to be seen since it seems to be getting more painful Worsening Symptoms: Emphasized symptoms that require emergent/urgent care according to EPIC protocol utilized or other documented decision support tool. Patient able to teach back worsening symptoms and action to take. Patient/Caregiver demonstrates understanding via teach back: Yes Disposition: See Within 3 Days in Office appt tomorrow but may go to the urgent visits today documented in this encounter Plan of Treatment Not on file documented as of this encounter Visit Diagnoses Not on filedocumented in this encounter Care Teams Shank Threader Relationship Specialty Start Date End Date Belkys Houston MD [address] [place] [id number] PCP - General Family Medicine 06/21/22 08/11/23 documented as of this encounter
--- OUTSIDE RECORDS SUMMARY | 2024-08-07 10:36 | XMS_ITS | Encounter Summary ---
Author Organization [facility] Address [facility] [place] [address] Care Team Providers Care Salesperson [employer] Name Role Phone Belkys Houston MD Primary Care Provider [phone] Encounter Details Date Type Department Care Team (Latest Contact Info) Description 06/16/2023 12:00 PM EDT Laboratory Appointment Lab at [address] [address] Pain and swelling of right lower leg Social History Tobacco Use Types Packs/Day Years [...] Procedure Name Priority Date/Time Associated Diagnosis Comments HEMOGRAM Routine 06/16/2023 11:37 AM EDT Pain and swelling of right lower leg DIFFERENTIAL, AUTOMATED Routine 06/16/2023 11:37 AM EDT Pain and swelling of right lower leg CBC (WITH DIFF) Routine 06/16/2023 11:37 AM EDT Pain and swelling of right lower leg URIC ACID Routine 06/16/2023 11:37 AM EDT Pain and swelling of right lower leg documented in this encounter Results * (ABNORMAL) Differential, Automated (06/16/2023 11:37 AM EDT) Neutrophil % 64.4 % [facility] Neutrophil Absolute 6.15(H) 1.70 - 6.10 x10(3)/mc L [facility] Lymph % 25.7 % [facility] Lymphocytes Abs 2.4 0.9 - 3.2 x10(3)/mc L [facility] Monocyte % 6.0 % [facility] Monocyte Abs 0.6 0.3 - 0.9 x10(3)/mc L [facility] Eos % 2.7 % [facility] Eosinophils Abs 0.3 0.0 - 0.4 x10(3)/mc L [facility] Basophil % 0.6 % [facility] Baso Absolute 0.1 0.0 - 0.1 x10(3)/mc L [facility] Immature Gran % 0.60 % [facility] Comment: Immature granulocytes(IG's)percentage and absolute count will include metamyelocytes, myelocytes, and promyelocytes. Blood smears from CBCs yielding IG's will be scanned manually for concordance. If this scan disagrees with the automated IG or if promyelocytes are noted, a manual differential will be performed. Immature Gran Absolute 0.06(H) 0.00 - 0.04 x10(3)/mc L [facility] Blood 06/16/2023 11:3 7 AM EDT 06/16/2023 11:37 AM EDT Narrative Resulting Agency Comment Spec In Lab Amber Eastman APRN HEMATOLOGY ORDERABL ES [facility] [address] [place] [address] * (ABNORMAL) Hemogram (06/16/2023 11:37 AM EDT) White Blood Cell 9.6(H) 4.0 - 9.5 x10(3)/mc L [facility] Red Blood Cell 5.12 4.58 - 5.54 x10(6)/mc L [facility] Hemoglobin 16.0 13.7 - 16.5 g/dL [facility] Hematocrit 46.5 40.5 - 48.5 % [facility] Mean Cell Volume 90.8 82.9 - 93.1 fL [facility] Mean Cell Hemoglobin 31.3 27.5 - 32.1 pg [facility] Mean Cell Hemoglobin Concentration 34.4 32.0 - 35.7 g/dL [facility] Platelet 324 145 - 357 x10(3)/mc L [facility] RDW Standard Deviation 43.6 36.0 - 45.0 fL [facility] RDW coefficient of variation 13.0 11.4 - 13.8 % [facility] Mean Platelet Volume 8.9 7.6 - 12.9 fL [facility] NRBC% auto 0.0 % [facility] NRBC Absolute 0.000 0.000 - 0.000 x10(3)/mc L [facility] Blood 06/16/2023 11:3 7 AM EDT 06/16/2023 11:37 AM EDT Narrative Resulting Agency Comment Spec In Lab Amber Eastman DROP COUNT ASSOCIATE HEMATOLOGY ORDERABL ES Performing Organization Address [facility] Co de Phone Number [facility] [address] [place] [address] * (ABNORMAL) Uric acid (06/16/2023 11:37 AM EDT) Uric Acid 9.8(H) 3.5 - 8.5 mg/dL [facility] Blood 06/16/2023 11:3 7 AM EDT 06/16/2023 11:37 AM EDT Narrative Resulting Agency Comment Spec In Lab Amber Eastman APRN CHEMISTRY ORDERABLE S Performing Organization Address [facility] Co de Phone Number [facility] [address] [place] [address] documented in this encounter Visit Diagnoses Diagnosis Pain and swelling of right lower leg documented in this encounter Care Teams Salesperson [employer] Relationship Specialty Start Date End Date Blekys Houston MD [address] [place] [id number] PCP - General Family Medicine 06/21/22 08/11/23 documented as of this encounter
--- OUTSIDE RECORDS SUMMARY | 2024-08-07 10:36 | XMS_ITS | Encounter Summary ---
Author Organization [facility] Address [facility] [place] [address] Care Team Providers Care Communications Manager Name Role Phone Belkys Houston MD Primary Care Provider [phone] Encounter Details Date Type Department Care Team ([facility] st Contact Info) Description 06/16/2023 8:25 AM EDT Office Visit Primary Care at [address] [address] Amber Eastman, DIAMOND [address] [place] [phone] No-show for appointment Social History Tobacco Use Types Packs/Day Years [...] on file documented as of this encounter Progress Notes * Amber Eastman APRN - 06/16/2023 8:25 AM EDT Patient was late to appointment and rebooked for 10:30. documented in this encounter Plan of Treatment Not on file documented as of this encounter Visit Diagnoses Diagnosis No-show for appointment documented in this encounter Care Teams Communications Manager Relationship Specialty Start Date End Date Belkys Houston MD [address] [place] [id number] PCP - General Family Medicine 06/21/22 08/11/23 documented as of this encounter
--- OUTSIDE RECORDS SUMMARY | 2024-08-07 10:36 | XMS_ITS | Encounter Summary ---
Author Organization [facility] Address [facility] [place] [address] Care Team Providers Care Drink Mixer Name Role Phone Belkys Houston MD Primary Care Provider [phone] Encounter Details Date Type Department Care Team (Latest Contact Info) Description 06/08/2023 6:40 PM EDT - 06/08/2023 11:59 PM EDT Hospital Encounter XRay at [address] [address] Destinee Escamilla, TELLER COORDINATOR [address] [place] [address] Pain in right hip Discharge Disposition: [...] To bilateral knees 450 g 5 12/17/2022 ciprofloxacin-dexAMETHas one (Ciprodex) 0.3-0.1 % Drops, SuspensionIndications:Ac chloé otitis externa of both ears, unspecified type Place 4 drops into both ears 2 times daily for 7 days. 7.5 mL 06/08/2023 06/15/2023 predniSONE (Deltasone) 20 mg tabletIndications:Pain in right hip,Numbness and tingling,Back pain, unspecified back location, unspecified back pain laterality, unspecified chronicity Take 2 tablets by mouth daily. 10 tablet 06/08/2023 06/16/2023 omeprazole (PriLOSEC) 40 mg Capsule, Delayed Release(E.C.) [...] Name Priority Date/Time Associated Diagnosis Comments XR PELVIS AND HIP 2 VIEWS RIGHT STAT 06/08/2023 6:48 PM EDT Pain in right hip documented in this encounter Results * XR Pelvis and Hip 2 Views Right (06/08/2023 6:48 PM EDT) Anatomical Region Laterality Modality Pelvis, Hip Right Computed Radiogr aphy Impressions 06/09/2023 7:58 AM EDT Negative study. Thank you for letting us participate in the care of this patient. ??If you are a health care provider and have any questions regarding this report, please contact the number below. ??For patients who have questions please contact the health healthcare translator that requested your imaging first. ? Electronically signed by: DANIELE JOSEPH MD, [facility] ([phone]), at 06/09/2023 7:58 AM Narrative 06/09/2023 7:58 AM EDT EXAMINATION: XR PELVIS AND HIP 2 VIEWS RIGHT CLINICAL HISTORY: right hip pain with radiating numbness and tingling dislocation vs other TECHNIQUE: 3 views of the pelvis and hips COMPARISON: None FINDINGS: Frontal view the pelvis with 2 additional views of the right hip demonstrate normal osseous alignment. No trauma, bone lesions, nor significant arthropathy. Procedure Note Daniele Joseph MD - 06/09/2023 EXAMINATION: XR PELVIS AND HIP 2 VIEWS RIGHT CLINICAL HISTORY: right hip pain with radiating numbness and tingling dislocation vs other TECHNIQUE: 3 views of the pelvis and hips COMPARISON: None FINDINGS: Frontal view the pelvis with 2 additional views of the right hipdemonstrate normal osseous alignment. No trauma, bone lesions, nor significantarthropathy. IMPRESSION Negative study. Thank you for letting us participate in the care of this patient. If youare a health care provider and have any questions regarding this report,please contact the number below. For patients who have questions please contactthe health healthcare translator that requested your imaging first. Electronically signed by: DANIELE JOSEPH MD, [facility]([phone]), at 06/09/2023 7:58 AM Destinee Escamilla APRN IMG DX ORDERABLES documented in this encounter Visit Diagnoses Diagnosis Pain in right hip Pain in joint, pelvic region and thigh documented in this encounter Care Teams Drink Mixer Relationship Specialty Start Date End Date Belkys Houston MD [address] [place] [address] [place] [address] PCP - General Family Medicine 06/21/22 08/11/23 documented as of this encounter
--- OUTSIDE RECORDS SUMMARY | 2024-08-07 10:36 | XMS_ITS | Encounter Summary ---
Author Organization [facility] Address [facility] [place] [address] Care Team Providers Care Outside Barrel Lathe Operator Name Role Phone Belkys Houston MD Primary Care Provider [phone] Encounter Details Date Type Department Care Team (Latest Contact Info) Description 06/08/2023 Travel Social History Tobacco Use Types Packs/Day [...] on filedocumented in this encounter Care Teams Outside Barrel Lathe Operator Relationship Specialty Start Date End Date Belkys Houston MD [address] [place] [id number] PCP - General Family Medicine 06/21/22 08/11/23 documented as of this encounter
--- OUTSIDE RECORDS SUMMARY | 2024-08-07 10:36 | XMS_ITS | Encounter Summary ---
Author Organization [facility] Address [facility] [place] [address] Care Team Providers Care Ccnp Name Role Phone Belkys Houston MD Primary Care Provider Reason for Visit * Reason Comments Abdominal Pain Encounter Details Date Type Department Care Team ([facility] st Contact Info) Description 11/30/2022 9:47 AM EDT - 11/30/2022 12:46 PM EDT Emergency Emergency Department at [address] [phone] Sergey Aly MD [address] [place] [id number] Diverticulitis of intestine without perforation or abscess with bleeding, unspecified part of intestinal tract Discharge Disposition: Home Social History Tobacco Use [...] Sign Reading Time Taken Comments Blood Pressure 158/114 11/30/2022 12:40 PM EDT Pulse 80 11/30/2022 12:40 PM EDT Temperature 36.6 ??C (97.8 ??F) 11/30/2022 9:58 AM ED T Respiratory Rate 18 11/30/2022 12:40 PM EDT Oxygen Saturation 96% 11/30/2022 12:40 PM EDT Inhaled Oxygen Concentration - - Weight - - Height - - Body Mass Index - - documented in this encounter Discharge Instructions * Discharge Instructions* Sergey Aly MD - 11/30/2022 12:16 PM EDT You were seen in the emergency department with abdominal pain. CT scan showed diverticulitis. You were started on an antibiotic. Take this as prescribed. Follow-up with your primary care doctor next week. If you develop new, concerning, or worsening symptoms, come back to the emergency department. P rescription for antibiotic was sent to the [facility] on . * Attachments The following attachments cannot be sent through Care Everywhere. * Diverticulitis (Angolan) documented in this encounter Medications at Time [...] as of this encounter ED Notes * Sergey Aly MD - 11/30/2022 9:54 AM EDT Demetrio Rivers is an 46 y.o. male who presents to the ED with: Chief Complaint Patient presents with ??? Abdominal Pain I saw this patient 11/30/2022 at ~ 12:21 PM HPI Demetrio Rivers is a 46 y.o. male with a PMH significant for hypertension, osteoarthritis, diverticulitis, who presents to the Emergency Department with abdominal pain. Patient reports that he has had abdominal pain and bloating for the last 2 days. He reports he woke up with this yesterday. He endorses nausea, no vomiting. He reports that his last bowel movement was yesterday morning, and was small. He denies any history of surgery on his abdomen. He endorses a history of diverticulitis and reports that this feels the same. He denies any fevers, but does endorse chills last night. Patient has had polyps removed during colonoscopies. Patient thinks that he has been passing gas. Review of Systems: A 10 point review of systems was performed and was negative except as noted in HPI Patient Vitals for the past 8 hrs: BP Temp Temp src Pulse Resp SpO2 11/30/22 0958 (!) 164/94 36.6 ??C (97.8 ??F) Oral (!) 112 20 95 % I have reviewed the vital signs, which demonstrates HTN, tachycardia, otherwise normal vitals Physical Exam: Physical Exam Vitals and nursing note reviewed. Constitutional: General: He is in acute distress. Appearance: Normal appearance. HENT: Head: Normocephalic and atraumatic. Right Ear: External ear normal. Left Ear: External ear normal. Nose: Nose normal. Eyes: Conjunctiva/sclera: Conjunctivae normal. Cardiovascular: Rate and Rhythm: Regular rhythm. Tachycardia present. Pulmonary: Effort: Pulmonary effort is normal. Abdominal: General: There is distension. Tenderness: There is abdominal tenderness. There is no guarding or rebound. Hernia: A hernia is present. Musculoskeletal: General: Normal range of motion. Cervical back: Normal range of motion. Skin: General: Skin is warm. Neurological: Mental Status: He is alert and oriented to person, place, and time. Psychiatric: Mood and Affect: Mood normal. Behavior: Behavior normal. ED Course: - Medications, allergies, past medical history, surgical history, family history, and social history were reviewed ED Course: - Medications and fluid administered: see MAR - I have reviewed lab results, which are significant for: Labs Reviewed COMPREHENSIVE METABOLIC PANEL (NON-FASTING) - Abnormal; Notable for the following components: Result Value Total Bilirubin 1.6 (*) All other components within normal limits HEMOGRAM - Abnormal; Notable for the following components: WBC 11.7 (*) MCV 93.2 (*) All other components within normal limits DIFFERENTIAL, AUTOMATED - Abnormal; Notable for the following components: Neutr Abs (ANC) 8.79 (*) All other components within normal limits CBC (WITH DIFF) BLUE TUBE HOLD GOLD TUBE HOLD URINALYSIS WITH REFLEX CULTURE - I have reviewed imaging, which is significant for: CT Abdomen & Pelvis w Contrast Final Result Consistent with moderate acute diverticulitis of the distal descending colon. Recommend follow-up colonoscopy following treatment and when clinically feasible to exclude underlying neoplasm. Thank you for letting us participate in the care of this patient. If you are a health care provider and have any questions regarding this report, please contact the number below. For patients who have questions please contact the health child care associate teacher that requested your imaging first. Electronically signed by: PRUDENCIO GREEN MD, [facility] ([phone]), at 11/30/2022 12:03 PM -I considered pertinent social determinants of health which are impacting this patient's care in the ED today.Relevant steps were taken to address each factor as described: No issues were identified Assessment and Plan: MDM: 46 y.o. male who presents for abdominal pain. Initial exam was significant for mildly distressed 46-year-old man with tachycardia, otherwise normal vitals, and abdominal distention and tenderness, predominantly on the left, lower quadrant. Diagnostic considerations include but are not limited to diverticulitis, nephrolithiasis, pyelonephritis,bowel obstruction. Work-up in the emergency department included CBC, CMP, notable for elevated white count at 11.7. CT abdomen pelvis was done with findings as detailed above. Diverticulitis, moderate, no evidence of complications. This is consistent with clinical presentation. Patient was reevaluated after receiving pain medications, Zofran, and IV fluid. He reported that he was feeling much better. We will give him a dose of Augmentin here and have him continue with Augmentin for the next 7 days. Prescription was sent to his pharmacy. I recommended that he follow-up with primary care next week. We discussed that if he has new, concerning, or worsening symptoms, to come back to the emergency department. Patient expressed understanding and was in agreement with plan. Plan: - Discharge home - Follow up with PCP - Return precautions were discussed with the pt Sergey Aly MD 11/30/22 1222 documented in this encounter Plan of Treatment Not on file documented as of this encounter Procedures Procedure Name Priority Date/Time Associated Diagnosis Comments CT ABDOMEN AND PELVIS W CONTRAST STAT 11/30/2022 11:30 AM EDT HEMOGRAM STAT 11/30/2022 10:25 AM EDT DIFFERENTIAL, AUTOMATED STAT 11/30/2022 10:25 AM EDT GOLD TUBE HOLD STAT 11/30/2022 10:25 AM EDT BLUE TUBE HOLD STAT 11/30/2022 10:25 AM EDT HC CBC,PLT & AUTO DIFF STAT 10:25 AM EDT COMPREHENSIVE METABOLIC PANEL STAT 11/30/2022 10:25 AM EDT documented in this encounter Results * CT Abdomen & Pelvis w Contrast (11/30/2022 11:30 AM EDT) Anatomical Region Laterality Modality Abdomen, Pelvis Computed Tomogra phy Impressions 11/30/2022 12:03 PM EDT Consistent with moderate acute diverticulitis of the distal descending colon. Recommend follow-up colonoscopy following treatment and when clinically feasible to exclude underlying neoplasm. Thank you for letting us participate in the care of this patient. ??If you are a health care provider and have any questions regarding this report, please contact the number below. ??For patients who have questions please contact the health child care associate teacher that requested your imaging first. ? Electronically signed by: PRUDENCIO GREEN MD, [facility] ([phone]), at 11/30/2022 12:03 PM Narrative 11/30/2022 12:03 PM EDT EXAMINATION: CT ABDOMEN AND PELVIS W CONTRAST CLINICAL HISTORY: LLQ abdominal pain TECHNIQUE: Helical CT of the abdomen and pelvis was performed following the intravenous administration of contrast. Administered 120.0 ml of OMNIPAQUE 350.00 mg/ml. Oral contrast was administered. COMPARISON: CT dated 07/19/2022 FINDINGS: Lower chest: Bilateral dependent changes at the lung bases, likely due to atelectasis. Liver: Normal size and attenuation without lesions. Bile ducts: Nondilated. Gallbladder: No calcified gallstones. Normal caliber wall. Pancreas: Normal attenuation without ductal dilatation. Spleen: Normal. Adrenals: Normal. Kidneys: Normal. Urinary Bladder: Normal. Vasculature: No aneurysm. There is a retroaortic left renal vein. Lymph Nodes: No enlarged lymph nodes. Bowel: There is marked focal thickening and inflammation and fat stranding as well as small amount of free fluid adjacent to the distal descending colon likely consistent with diverticulitis. Peritoneum and mesentery: Small amount of free fluid in the left lower quadrant. Abdominal wall: There is small amount of fluid identified within the right periumbilical fat-containing hernia. Reproductive organs: No acute findings. Osseous structures: No suspicious lesions. Procedure Note Prudencio Green MD - 11/30/2022 EXAMINATION: CT ABDOMEN AND PELVIS W CONTRAST CLINICAL HISTORY: LLQ abdominal pain TECHNIQUE: Helical CT of the abdomen and pelvis was performed followingthe intravenous administration of contrast. Administered 120.0 ml ofOMNIPAQUE 350.00 mg/ml. Oral contrast was administered. COMPARISON: CT dated 07/19/2022 FINDINGS: Lower chest: Bilateral dependent changes at the lung bases, likely dueto atelectasis. Liver: Normal size and attenuation without lesions. Bile ducts: Nondilated. Gallbladder: No calcified gallstones. Normal caliber wall. Pancreas: Normal attenuation without ductal dilatation. Spleen: Normal. Adrenals: Normal. Kidneys: Normal. Urinary Bladder: Normal. Vasculature: No aneurysm. There is a retroaortic left renal vein. Lymph Nodes: No enlarged lymph nodes. Bowel: There is marked focal thickening and inflammation and fat strandingas well as small amount of free fluid adjacent to the distal descendingcolon likely consistent with diverticulitis. Peritoneum and mesentery: Small amount of free fluid in the left lowerquadrant. Abdominal wall: There is small amount of fluid identified within theright periumbilical fat-containing hernia. Reproductive organs: No acute findings. Osseous structures: No suspicious lesions. IMPRESSION Consistent with moderate acute diverticulitis of the distal descendingcolon. Recommend follow-up colonoscopy following treatment and when clinicallyfeasible to exclude underlying neoplasm. Thank you for letting us participate in the care of this patient. If youare a health care provider and have any questions regarding this report,please contact the number below. For patients who have questions please contactthe health child care associate teacher that requested your imaging first. Electronically signed by: PRUDENCIO GREEN MD, [facility] ([phone]), at 11/30/2022 12:03 PM Sergey Aly MD IMG CT ORDERABLES * Gold Tube HOLD (11/30/2022 10:25 AM EDT) Gold Hold Sample in lab. [facility] Blood Venous Draw / Unknown 11/30/2022 10:25 AM EDT 11/30/2022 10:45 AM EDT Sergey Aly MD CHEMISTRY ORDERABLES Performing Organization Address [facility] de Phone Number [facility] [address] [place] [address] * Blue Tube HOLD (11/30/2022 10:25 AM EDT) Blue Hold Sample in lab. [facility] Blood Venous Draw / Unknown 11/30/2022 10:25 AM EDT 11/30/2022 10:44 AM EDT Sergey Aly MD HEMATOLOGY ORDERABLE S Performing Organization Address [facility] Co de Phone Number [facility] [address] [place] [address] * (ABNORMAL) Differential, Automated (11/30/2022 10:25 AM EDT) Neutrophil % 75.2 % [facility] Neutrophil Absolute 8.79(H) 1.70 - 6.10 x10(3)/mc L [facility] Lymph % 15.6 % [facility] Lymphocytes Abs 1.8 0.9 - 3.2 x10(3)/ L [facility] Monocyte % 7.5 % [facility] Monocyte Abs 0.9 0.3 - 0.9 x10(3)/mc L [facility] Eos % 1.1 % [facility] Eosinophils Abs 0.1 0.0 - 0.4 x10(3)/[facility] Basophil % 0.3 % [facility] Baso Absolute 0.0 0.0 - 0.1 x10(3)/ L [facility] Immature Gran % 0.30 % [facility] Comment: Immature granulocytes(IG's)percentage and absolute count will include metamyelocytes, myelocytes, and promyelocytes. Blood smears from CBCs yielding IG's will be scanned manually for concordance. If this scan disagrees with the automated IG or if promyelocytes are noted, a manual differential will be performed. Immature Gran Absolute 0.03 0.00 - 0.04 x10(3)/ L [facility] Blood 11/30/2022 10:2 5 AM EDT 11/30/2022 10:41 AM EDT Narrative Resulting Agency Comment Spec In Lab Sergey Aly MD HEMATOLOGY ORDERABLE S [facility] [address] [place] [address] * (ABNORMAL) Hemogram (11/30/2022 10:25 AM EDT) White Blood Cell 11.7(H) 4.0 - 9.5 x10(3)/mc L [facility] Red Blood Cell 4.84 4.58 - 5.54 x10(6)/ L [facility] Hemoglobin 15.2 13.7 - 16.5 g/dL [facility] Hematocrit 45.1 40.5 - 48.5 % [facility] Mean Cell Volume 93.2(H) 82.9 - 93.1 fL [facility] Mean Cell Hemoglobin 31.4 27.5 - 32.1 pg [facility] Mean Cell Hemoglobin Concentration 33.7 32.0 - 35.7 g/dL [facility] Platelet 288 145 - 357 x10(3)/mc L [facility] RDW Standard Deviation 43.7 36.0 - 45.0 fL [facility] RDW coefficient of variation 12.7 11.4 - 13.8 % [facility] Mean Platelet Volume 9.4 7.6 - 12.9 fL [facility] NRBC% auto 0.0 % [facility] NRBC Absolute 0.000 0.000 - 0.000 x10(3)/mc L [facility] Blood 11/30/2022 10:2 5 AM EDT 11/30/2022 10:41 AM EDT Narrative Resulting Agency Comment Spec In Lab Sergey Aly MD HEMATOLOGY ORDERABLE S [facility] [address] [place] [address] * (ABNORMAL) Comprehensive metabolic panel (non-fasting) (11/30/2022 10:25 AM EDT) Glucose 113 65 - 199 mg/dL [facility] Comment:Diabetes: >=200 mg/d L plus symptoms Blood Urea Nitrogen 18 10 - 20 mg/dL [facility] Creatinine 1.23 0.80 - 1.50 mg/dL [facility] Sodium 137 135 - 145 mmol/L [facility] Potassium 4.2 3.5 - 5.0 mmol/L [facility] Comment: Please note: ??Patients with WBC >100,000 may have falsely elevated Potassium levels. ??For accurate Potassium quantification in these patients send serum separator tube (gold top) for subsequent determinations. ??Contact the Clinical Chemistry Laboratory if there are any questions. Chloride 101 98 - 107 mmol/L [facility] Carbon Dioxide 23 22 - 31 mmol/L [facility] Anion Gap 13 5 - 15 mmol/L [facility] Calcium 9.7 8.5 - 10.5 mg/dL [facility] Protein, Total 7.6 6.1 - 8.0 g/dL [facility] Albumin 4.4 3.2 - 5.2 g/dL [facility] Aspartate Aminotransferase 30 0 - 39 unit/L [facility] Alanine Aminotransferase 44 0 - 55 unit/L [facility] Alkaline Phosphatase 73 40 - 130 unit/L [facility] Bilirubin, Total 1.6(H) 0.2 - 1.3 mg/dL [facility] Est Glomerular Filtration Rate 74 >=60 mL/min/1. 73 m?? [facility] Comment: This patient's estimated GFR was [...] and symptoms in addition to eGFR. Blood 11/30/2022 10:2 5 AM EDT 11/30/2022 10:41 AM EDT Narrative Resulting Agency Comment Spec In Lab Sergey Aly MD CHEMISTRY ORDERABLES [facility] [address] [place] [address] documented in this encounter Visit Diagnoses Diagnosis Diverticulitis of intestine without perforation or abscess with bleeding, unspecified part of intestinal tract documented in this encounter Administered Medications Inactive Administered Medications - up to 3 most recent administrations Medication Order MAR Action Action Date Dose Rate Site amoxicillin-clavulanate (Augmentin) 875-125 mg per tablet 1 tablet 1 tablet, Oral, ONCE, 1 dose, On Tue11/30/22 at 1216, STAT, Indication for (Active or Suspected): GI/Intra-abdominal Given 11/30/2022 12:41 PM EDT 1 tablet HYDROmorphone (Dilaudid) (0.5 mg/0.5 mL) injection syringe 0.5 mg 0.5 mg, Intravenous, ONCE, 1 dose, On Tue11/30/22 at 1044, STAT Given 11/30/2022 10:51 AM EDT 0.5 mg lactated ringers infusion 1,000 mL, at 4,000 mL/hr, Intravenous, ONCE, 1 dose, On Tue11/30/22 at 1044 New Bag 11/30/2022 10:50 AM EDT 1,000 mLs 4000 mL/hr ondansetron (pf) (Zofran) (2 mg/mL) injection 4 mg 4 mg, Intravenous, ONCE, 1 dose, On Tue11/30/22 at 1044, STAT Given 11/30/2022 10:50 AM EDT 4 mg documented in this encounter Active and Recently Administered Medications Due to Daylight Saving Time, this section may contain times in both EST and EDT. Scheduled Medication Order 11/28/2022 11/29/2022 11/30/2022 amoxicillin-clavulanate (Augmentin) 875-125 mg per tablet 1 tablet (COMPLETED) 1 tablet, Oral, ONCE, 1 dose, On Tue11/30/22 at 1216, STAT, Indication for (Active or Suspected): GI/Intra-abdominal 1241 (Given - Provid er: Madison Holly RN) HYDROmorphone (Dilaudid) (0.5 mg/0.5 mL) injection syringe 0.5 mg (COMPLETED) 0.5 mg, Intravenous, ONCE, 1 dose, On Tue11/30/22 at 1044, STAT 1051 (Given - Provid er: Madison Holly RN) lactated ringers infusion (COMPLETED) 1,000 mL, at 4,000 mL/hr, Intravenous, ONCE, 1 dose, On Tue11/30/22 at 1044 1050 (New Bag - Prov ider: Madison Holly RN)1235 (Stopped - Provider: Madison Holly RN) ondansetron (pf) (Zofran) (2 mg/mL) injection 4 mg (COMPLETED) 4 mg, Intravenous, ONCE, 1 dose, On Tue11/30/22 at 1044, STAT 1050 (Given - Provid er: Madison Holly RN) documented in this encounter Care Teams Ccnp Relationship Specialty Start Date End Date Belkys Houston MD [address] [place] [id number] PCP - General Family Medicine 06/21/22 08/11/23 documented as of this encounter
--- OUTSIDE RECORDS SUMMARY | 2024-08-07 10:36 | XMS_ITS | Encounter Summary ---
Author Organization [facility] Address [facility] [place] [address] Care Team Providers Care Roller Coaster Operator Name Role Phone Belkys Houston MD Primary Care Provider Reason for Referral * High Dollar Medication (Routine) - Closed Specialty Diagnoses / Procedures Referred By Contac t Referred To Contact Orthopaedics Diagnoses Primary osteoarthritis of both knees Procedures Synvisc One Authorization Request (IN CLINIC) TC EUFLEXXA, PER DOSE, INTRA-ARTICULAR INJECTION *SWITCHED TO PREFERRED DRUG, EUFLEXXA PER [facility]* Rhett Rodríguez PA [address] [place] [address] Rhett Rodríguez PA [address] [place] [id number] Referral ID Status Reason Start Date Expiration Date V isits Requested Visits Authorized [id number] Closed Consult, Test & Treat 01/07/2023 01/07/2024 3 3 Reason for Visit * Reason Comments Bilateral Knee Pain R>L * Consultation (Routine) - Closed Specialty Diagnoses / Procedures Referred By Contac t Referred To Contact Orthopaedics Diagnoses Chronic pain of left knee Chronic pain of right knee Amber Eastman, DIAMOND [address] [place] [address] [facility] [address] [place] [phone] Referral ID Status Reason Start Date Expiration Date V isits Requested Visits Authorized [id number] Closed Consult, Test & Treat 12/17/2022 12/17/2023 1 1 Encounter Details Date Type Department Care Team (Latest Contact Info) Description 01/07/2023 4:00 PM EDT Office Visit Orthopaedics at [address] [phone] Rhett Rodríguez PA [address] [place] [address] [place] [address] Primary osteoarthritis of both knees Social History Tobacco Use Types Packs/Day Years [...] Sign Reading Time Taken Comments Blood Pressure 126/82 01/07/2023 4:06 PM EDT Pulse 102 01/07/2023 4:06 PM EDT Temperature - - Respiratory Rate - - Oxygen Saturation 98% 01/07/2023 4:06 PM EDT Inhaled Oxygen Concentration - - Weight - - Height - - Body Mass Index - - documented in this encounter Progress Notes * Rhett Rodríguez PA - 01/07/2023 4:00 PM EDT OUTPATIENT ORTHOPAEDIC CLINIC INITIAL OFFICE NOTE Name: Demetrio Rivers : 1975 PCP: Belkys Houston MD Referring Provider: Amber Eastman APRN Surgeon on Record: Prashant Cardona MD Date of Evaluation: 01/07/2023 Chief Complaint: Bilateral knee pain SUBJECTIVE History of Present Illness: Demetrio Rivers is a 47-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 The right knee tends to be worse than the left. He did have a right knee arthroscopy roughly 10 years ago for a meniscal repair. He states over the past few years she has been having increased discomfort somewhat diffusely about the knees but primarily over the anterior medial aspect. Pain is typically exacerbated weightbearing activities however he also experiences painwhile at rest and has difficulty sleeping due to the discomfort. He gets swelling about the knees pa rticular at the end of the day. He has noticed decreased range of motion due to the pain. He has not had any catching or locking or any yessenia giving out of the knee although they do sometimes feel unstable. Stairs have become increasingly difficult. Is affecting his overall quality of life as he nolonger is able to participate in activities such as hunting or fishing due to the discomfort. He has had cortisone injections in the past which provide him with short-term relief. He is currently taking meloxicam which has been helpful but unfortunate does not resolve all his discomfort. Past Medical History: Medications 12/17/22 5539 Medication Sig Taking? diclofenac (Voltaren) 1 % Gel Apply topically 4 times daily as needed. To bilateral knees omeprazole (PriLOSEC) 40 mg Capsule, Delayed Release(E.C.) Take 1 capsule by mouth daily. Take at least 30 min prior to eating/drinking. Patient not taking: Reported on 12/17/2022 meloxicam (MOBIC) 15 mg Tablet Take 1 tablet by mouth daily. Patient not taking: Reported on 12/17/2022 lisinopriL (Zestril) 40 mg Tablet Take 1 tablet by mouth daily. lidocaine (Lidoderm) 5% Adhesive Patch, Medicated Place 1 patch onto affected area for 12 hours then remove for 12 hours Patient Active Problem List Diagnosis ??? Primary hypertension ??? Osteoarthritis of right knee ??? Tubular adenoma of colon ??? Diverticulitis of both small and large intestine without perforation or abscess with bleeding Past Surgical History: Procedure Laterality Date ??? KNEE SURGERY Right ??? PRO COLONOSCOPY, DIAGNOSTIC N/A 10/25/2022 COLONOSCOPY, DIAGNOSTIC performed by Maite Barraza MD at [facility] ??? PRO UPPER GI ENDOSCOPY, DIAGNOSTIC N/A 10/25/2022 EGD, UPPER GI ENDOSCOPY performed by Maite Barraza MD at [facility] Allergies Allergen Reactions ??? Bactrim [Sulfamethoxazole-Trimethoprim] Hives and Other (See Comments) Fever, sweating, shortness of breath Family History Problem Relation Age of Onset ??? Hyperlipidemia Mother ??? Diabetes Father ??? Alcohol Use Disorder Father ??? No Known Problems Sister ??? Cancer Brother Social History Tobacco Use ??? Smoking status: Former Years: Types: Cigarettes Quit date: 2021 Years since quittin.3 ??? Smokeless tobacco: Never ??? Tobacco comments: Doesn't smoke during the week. Vaping Use ??? Vaping Use: Never used Substance Use Topics ??? Alcohol use: Yes Alcohol/week: 14.0 standard drinks Types: 14 Cans of beer per week Comment: maybe a beer after work ??? Drug use: Yes Frequency: 7.0 times per week Types: Marijuana Review of Systems: Positive Review of systems are noted in the HPI above. OBJECTIVE: Vitals: BP 126/82 (BP Location (NBP): Left arm, Patient Position: Sitting, BP Cuff Sizes: Large Adult (32-43 cm)) Pulse (!) 102 SpO2 98% General: Patient is sitting upright in chair upon entering the exam room. He is alert and in no apparent distress, he is pleasant and cooperative. Bilateral knees: Patient walks with an antalgic gait pattern without the use of assistive device. Skin is in good condition. There is 1+ intra-articular effusion within the right knee and trace intra-articular effusion in the left knee. Tenderness to palpation is appreciated over the medial joint lines. Range of motion of the knees are from 0 to 120 degrees of flexion. Knees are stable to varus and valgus stress as well as anterior posterior drawer test. Hamstring and extensor mechanisms are intact. Sensation to light touch is grossly intact. Capillary refill is brisk distally. RADIOLOGY/DIAGNOSTIC TESTIN view x-rays of the bilateral knees ordered by another provider obtained on 12/17/2022 demonstrate moderate to advanced degenerative changes in the form of medial and lateral joint space narrowing with marginal osteophytes appreciated. There is advanced patellofemoral osteoarthritis as well in the form of joint space narrowing and osteophyte formation. Enthesophytes are noted in the superior poles of the patellas. There are no acute findings. These images were interpreted by myself and reviewed with the patient in the room today. ASSESSMENT: 1. Moderate to advanced osteoarthritis of the bilateral knees PLAN: 1. My findings were discussed with the patient today. Relevant anatomy and pathology were reviewed.Patient symptomatology and physical exam findings are consistent with osteoarthritis of the bilateral knees. Treatment options were discussed at length and the concept of the osteoarthritis treatmentladder was reviewed which consists of starting with least invasive measures and gradually increasing in invasiveness based on patient response. Summary of options includes trialing NSAIDs/Tylenol, home exercise program, activity modification, icing, compression, bracing, referral to physical therapy, intra-articular cortisone injections, intra-articular Visco supplementation, genicular nerve block/iovera, and finally total knee arthroplasty for definitive management. After consideration of all options patient would like to proceed with aspirations followed by Synvisc 1 injections in the bilateral knees. Authorization has been sent today. I will plan to have him follow-up in 2 weeks pending authorization. Should these fail to provide him with good relief you then like to consider total knee arthroplasty for definitive management. He does not wish to pursue repeat cortisone injection as these have not provided him with longstanding relief in the past. He willcontinue with meloxicam in the meantime. He agrees to contact us in the meantime with any questionsor concerns. Patient demonstrates understanding and agreement to the above plan. All questions were answered to the patient's stated satisfaction. FOLLOW-UP: 2 weeks for bilateral knee arthrocentesis followed by Synvisc 1 injections pending authorization Thank you for allowing me to participate in the care of your patient. If you have any questions or concerns, please do not hesitate to contact me. LUZ Bruce 01/07/2023 documented in this encounter Plan of Treatment Not on file documented as of this encounter Visit Diagnoses Diagnosis Primary osteoarthritis of both knees Primary localized osteoarthrosis, lower leg documented in this encounter Care Teams Roller Coaster Operator Relationship Specialty Start Date End Date Belkys Houston MD [address] [place] [address] [place] [address] PCP - General Family Medicine 06/21/22 08/11/23 documented as of this encounter
--- OUTSIDE RECORDS SUMMARY | 2024-08-07 10:36 | XMS_ITS | Encounter Summary ---
Author Organization [facility] Address [facility] [place] [address] Care Team Providers Care Departmental Shipping Clerk Name Role Phone Belkys Houston MD Primary Care Provider [phone] Encounter Details Date Type Department Care Team (Latest Contact Info) Description 06/16/2023 Travel Social History Tobacco Use Types Packs/Day [...] on filedocumented in this encounter Care Teams Departmental Shipping Clerk Relationship Specialty Start Date End Date Belkys Houston MD [address] [place] [id number] PCP - General Family Medicine 06/21/22 08/11/23 documented as of this encounter
--- OUTSIDE RECORDS SUMMARY | 2024-08-07 10:36 | XMS_ITS | Encounter Summary ---
Author Organization [facility] Address [facility] [place] [address] Care Team Providers Care Roll On Worker Name Role Phone Belkys Houston MD Primary Care Provider [phone] Reason for Referral * Diagnostic Test (STAT) - Closed Specialty Diagnoses / Procedures Referred By Greg t Referred To Contact Diagnoses Right calf pain Procedures Vascular Imaging Venous Lower Extremity Unilateral Amber Eastman APRN [address] [place] [address] [facility] [address] [place] [address] Referral ID Status Reason Start Date Expiration Date V isits Requested Visits Authorized [id number] Closed Specialty Service Requested 06/16/2023 12/14/2024 1 1 Reason for Visit * Reason Comments Leg And Foot Pain Encounter Details Date Type Department Care Team ([facility] Contact Info) Description 06/16/2023 10:30 AM EDT Office Visit Primary Care at [address] [id number] Amber Eastman APRN [address] [place] [address] Right calf pain; Pain and swelling of right lower leg; Gout of right ankle, unspecified cause, unspecified chronicity; Hypertension, unspecified type Social History Tobacco Use [...] Sign Reading Time Taken Comments Blood Pressure 164/104 06/16/2023 10:20 AM EDT Pulse 108 06/16/2023 10:20 AM EDT Temperature 36.4 ??C (97.5 ??F) 06/16/2023 10:20 AM E DT Respiratory Rate - - Oxygen Saturation 98% 06/16/2023 10:20 AM EDT Inhaled Oxygen Concentration - - Weight - - Height - - Body Mass Index - - documented in this encounter Progress Notes * Amber Eastman, SHEET METAL MECHANIC - 06/16/2023 10:30 AM EDT ID: Demetrio Rivers is a 47 y.o. male Assessment/Plan: 1. Right calf pain Patient reports extreme pain in his right calf, right ankle and foot. Reports that this has been going on for approximately 1 week and continues to increase in pain and now he is unable to bear weight. Patient denies any fevers, chills, injury or trauma. Skin to right lower extremity noted to be intact without injury. Right calf measurement noted to be 43 cm and left calf noted to be 39 cm. Wells' Criteria for DVT from [email or web address] on 06/16/2023 RESULT SUMMARY: 3 points High risk group for DVT. ???Likely?? according to [facility]??? DVT studies. INPUTS: Active cancer --> 0 = No Bedridden recently >3 days or major surgery within 12 weeks --> 0 = No Calf swelling >3 cm compared to the other leg --> 1 = Yes Collateral (nonvaricose) superficial veins present --> 0 = No Entire leg swollen --> 1 = Yes Localized tenderness along the deep venous system --> 1 = Yes Pitting edema, confined to symptomatic leg --> 0 = No Paralysis, paresis, or recent plaster immobilization of the lower extremity --> 0 = No Previously documented DVT --> 0 = No Alternative diagnosis to DVT as likely or more likely --> 0 = No At this time due to significant swelling, warmth, tenderness and severe right calf pain patient will have stat ultrasound of right lower extremity to rule out blood clot. Patient reports significant numbness and tingling in right foot. - Vascular Imaging Venous Lower Extremity Unilateral; Future 2. Pain and swelling of right lower leg Obtain updated lab work to include CBC to assess white count, uric acid as patient has past medicalhistory of gout and not currently on any medication. We will also obtain x-ray of foot and ankle radha sure no bony involvement is causing increased swelling and pain. - CBC (with Diff); Future - Uric acid; Future - XR Ankle Min 3 views Right (Generic); Future - XR Foot Min 3 views Right (Generic); Future 3. Gout of right ankle, unspecified cause, unspecified chronicity Patient returned after completion of ultrasound and lab work and it was found that patient had an increased uric acid level. At this time I believe patient's pain, swelling, redness and inability to bear weight is due to a gout flare. Patient reports that he currently is not taking any medications and believes he has had issues with this in the past but he cannot remember. At this time will prescribe patient prednisone and will start him on daily allopurinol. Patient verbalized understanding. Patient provided note to 2 to return to work on Tuesday as he is unable to bear weight at this time. Patient was educated and encouraged that he could not take his meloxicam while on the prednisone. - predniSONE (Deltasone) 20 mg tablet; Take 2 tablets by mouth daily for 3 days, THEN 1.5 tablets daily for 3 days, THEN 1 tablet daily for 3 days, THEN 0.5 tablets daily for 3 days. Dispense: 15 tablet; Refill: 0 - allopurinoL (Zyloprim) 100 mg tablet; Take 1 tablet by mouth daily. Dispense: 90 tablet; Refill: 3 4. Hypertension, unspecified type Patient's blood pressure noted to be extremely high at office visit today. This partly could be dueto increased pain but patient also reports he is no longer taking his lisinopril. Patient educated and encouraged on the importance of blood pressure control and that he needed to restart his lisinopril. Patient in agreement with this. Patient is to follow-up in 3 weeks or sooner if needed for blood pressure check and follow-up with gout. HPI the patient is a very pleasant 47-year-old male seen in office today for concerns of 1 week of ongoing right foot and leg pain. Past medical history noted for hypertension, osteoarthritis, tubular adenoma and diverticulitis. Reports that he is just recovering from an ear thing and was seen in urgent visits and was started on prednisone. He reports that he was feeling much improved and then approximately 1 week ago after stopping his prednisone he developed right foot and ankle pain and now his right foot and ankle are swollen, red, warm and extremely painful. Patient reports that he has not extreme pain in his right thigh that feels that it is cramping. It makes it very difficult for him to bear weight and to sleep. This note was partially generated using [employer] voice recognition system, and there may be some incorrect words, spellings, and punctuation that were not noted in checking the note before saving. ROS: Review of Systems Constitutional: Positive for malaise/fatigue. Negative for chills, fever and weight loss. Respiratory: Negative for cough, shortness of breath and wheezing. Cardiovascular: Positive for leg swelling. Negative for chest pain and palpitations. Gastrointestinal: Negative for abdominal pain, constipation, diarrhea, heartburn, nausea and vomiting. Genitourinary: Negative for dysuria, frequency, hematuria and urgency. Musculoskeletal: Positive for joint pain. Negative for back pain and falls. Neurological: Negative for dizziness, weakness and headaches. Psychiatric/Behavioral: Negative for depression, substance abuse and suicidal ideas. The patient isnot nervous/anxious. Patient Active Problem List Diagnosis Code Primary hypertension I10 Osteoarthritis of right knee M17.11 Tubular adenoma of colon D12.6 Diverticulitis of both small and large intestine without perforation or abscess with bleeding K57.53 MEDICATIONS: Current Outpatient Medications on File Prior to Visit Medication Sig Dispense Refill diclofenac (Voltaren) 1 % Gel Apply topically [...] tablet by mouth daily. 90 tablet 3 lidocaine (Lidoderm) 5% Adhesive Patch, Medicated Place 1 patch onto affected area for 12 hours then remove for 12 hours 30 patch 0 No current facility-administered medications on file prior to visit. ALLERGIES: Allergies Allergen Reactions Bactrim [Sulfamethoxazole-Trimethoprim] Hives and Other (See Comments) Fever, sweating, shortness of breath VITALS: Vitals: 06/16/23 1020 BP: (!) 164/104 BP Location (NBP): Left arm Patient Position: Sitting Pulse: (!) 108 Temp: 36.4 ??C (97.5 ??F) TempSrc: Temporal SpO2: 98% Physical Exam Vitals reviewed. Constitutional: General: He [...] Tenderness: There is no abdominal tenderness. Musculoskeletal: Right lower leg: Tenderness present. No bony tenderness. 2+ Edema present. Left lower leg: No edema. Right ankle: Swelling present. No ecchymosis or lacerations. Tenderness present. Decreased range ofmotion. Right foot: Decreased range of motion. Tenderness present. No swelling. Normal pulse. Feet: Right Foot: Skin Integrity: Positive for erythema and warmth. Negative for ulcer, blister, skin breakdown, callus, dry skin or toenail abnormality. Left Foot: Skin Integrity: Negative for ulcer, blister, skin breakdown, erythema, warmth, callus, dry skin or toenail abnormality. Skin: General: Skin is warm and dry. [...] Memory: Cognition normal. Judgment: Judgment normal. RESULTS: Recent Results (from the past 168 hour(s)) Uric acid Collection Time: 06/16/23 11:37 AM Result Value Ref Range Uric Acid 9.8 (H) 3.5 - 8.5 mg/dL Hemogram Collection Time: 06/16/23 11:37 AM Result Value Ref Range WBC 9.6 (H) 4.0 - 9.5 x10(3)/mcL RBC 5.12 4.58 - 5.54 x10(6)/mcL Hemoglobin 16.0 13.7 - 16.5 g/dL Hematocrit 46.5 40.5 - 48.5 % MCV 90.8 82.9 - 93.1 fL MCH 31.3 27.5 - 32.1 pg MCHC 34.4 32.0 - 35.7 g/dL Platelets 324 145 - 357 x10(3)/mcL RDWSD 43.6 36.0 - 45.0 fL RDWCV 13.0 11.4 - 13.8 % MPV 8.9 7.6 - 12.9 fL nRBC % Auto 0.0 % nRBC Abs Auto 0.000 0.000 - 0.000 x10(3)/mcL Differential, Automated Collection Time: 06/16/23 11:37 AM Result Value Ref Range Neutrophils % 64.4 % Neutr Abs (ANC) 6.15 (H) 1.70 - 6.10 x10(3)/mcL Lymphocytes % 25.7 % Lymphocytes Abs 2.4 0.9 - 3.2 x10(3)/mcL Monocytes % 6.0 % Monocyte Abs 0.6 0.3 - 0.9 x10(3)/mcL Eosinophils % 2.7 % Eosinophils Abs 0.3 0.0 - 0.4 x10(3)/mcL Basophils % 0.6 % Basophils Abs 0.1 0.0 - 0.1 x10(3)/mcL Immature Gran % 0.60 % Ysabel Gran Abs 0.06 (H) 0.00 - 0.04 x10(3)/mcL Time spent with the patient, reviewing chart, ordering test and reviewing results: Greater than 40 minutes -Patient returned after completion of ultrasound and lab work and all results reviewed with patient. Patient was provided a work note as well as sent for additional x-rays. documented in this encounter Plan of Treatment Not on file documented as of this encounter Results * XR Foot Min [...] who have questions please contact the health housekeeper child care that requested your imaging first. ? Electronically signed by: PRUDENCIO GREEN MD, [facility] ([phone]), at 06/16/2023 2:08 PM Narrative 06/16/2023 2:08 [...] patients who have questions please contactthe health housekeeper child care that requested your imaging first. Electronically signed by: PRUDENCIO GREEN MD, [facility] ([phone]), at 06/16/2023 2:08 PM Amber Jamessonu DANGN IMG DX ORDERABLES * XR Ankle Min 3 views Right [...] who have questions please contact the health housekeeper child care that requested your imaging first. ? Electronically signed by: PRUDENCIO GREEN MD, [facility] ([phone]), at 06/16/2023 2:09 PM Narrative 06/16/2023 2:09 [...] patients who have questions please contactthe health housekeeper child care that requested your imaging first. Electronically signed by: PRUDENCIO GREEN MD, [facility] ([phone]), at 06/16/2023 2:09 PM Amber Eastman APRN IMG DX ORDERABLES * (ABNORMAL) Uric acid (06/16/2023 11:37 AM EDT) Uric Acid 9.8(H) 3.5 - 8.5 mg/dL [facility] Blood 06/16/2023 11:3 7 AM EDT 06/16/2023 11:37 AM EDT Narrative Resulting Agency Comment Spec In Lab Amber Eastman APRN CHEMISTRY ORDERABLE S [facility] [address] [place] [address] * Vascular Imaging Venous Lower Extremity Unilateral (06/16/2023 11:32 AM EDT) Anatomical Region Laterality Modality VASC Impressions 06/16/2023 11:39 AM EDT 1. No evidence for right lower extremity deep vein thrombosis. 2. Mild, nonspecific right inguinal lymphadenopathy. These lymph nodes may be reactive. Clinically correlate for significance. Thank you for letting us participate in the care of this patient. ??If you are a health care provider and have any questions regarding this report, please contact the number below. ??For patients who have questions please contact the health housekeeper child care that requested your imaging first. ? Electronically signed by: DANIELE JOSEPH MD, [facility] ([phone]), at 06/16/2023 11:39 AM Narrative 06/16/2023 11:39 AM EDT EXAMINATION: VASCULAR IMAGING VENOUS LOWER EXTREMITY UNILATERAL CLINICAL HISTORY: increased pain, swelling and redness x 1 week. TECHNIQUE: A duplex doppler study was performed through the right lower extremity. FINDINGS: The deep veins throughout the right lower extremity are clear and compressible. Flow is spontaneous, phasic, and augmentable. I see no evidence for deep vein thrombosis. The right greater saphenous and left common femoral veins are clear. Procedure Note Daniele Joseph MD - 06/16/2023 EXAMINATION: VASCULAR IMAGING VENOUS LOWER EXTREMITY UNILATERAL CLINICAL HISTORY: increased pain, swelling and redness x 1 week. TECHNIQUE: A duplex doppler study was performed through the right lower extremity. FINDINGS: The deep veins throughout the right lower extremity are clear andcompressible. Flow is spontaneous, phasic, and augmentable. I see no evidence for deepvein thrombosis. The right greater saphenous and left common femoral veins areclear. IMPRESSION 1. No evidence for right lower extremity deep vein thrombosis. 2. Mild, nonspecific right inguinal lymphadenopathy. These lymph nodes maybe reactive. Clinically correlate for significance. Thank you for letting us participate in the care of this patient. If youare a health care provider and have any questions regarding this report,please contact the number below. For patients who have questions please contactthe health housekeeper child care that requested your imaging first. Electronically signed by: DANIELE JOSEPH MD, [facility]([phone]), at 06/16/2023 11:39 AM Amber Abdi Raiza [facility] VASCULAR ORDERABLES documented in this encounter Visit Diagnoses Diagnosis Right calf pain Pain and swelling of right lower leg Gout of right ankle, unspecified cause, unspecified chronicity Hypertension, unspecified type Right calf pain Pain and swelling of right lower leg Pain and swelling of right lower leg documented in this encounter Care Teams Roll On Worker Relationship Specialty Start Date End Date Belkys Houston MD [address] [place] [id number] PCP - General Family Medicine 06/21/22 08/11/23 documented as of this encounter
--- OUTSIDE RECORDS SUMMARY | 2024-08-07 10:36 | XMS_ITS | Encounter Summary ---
Author Organization [facility] Address [facility] [place] [address] Care Team Providers Care Criminal Records Technician Name Role Phone Belkys Houston MD Primary Care Provider [phone] Encounter Details Date Type Department Care Team (Late st Contact Info) Description 06/22/2023 Telephone Primary Care at [address] [address] Nicolette Salgado Social History Tobacco Use Types Packs/Day Years [...] encounter Miscellaneous Notes * Telephone Encounter - Nicolette Salgado - 06/22/2023 6:36 PM EDT [facility] paperwork dropped off at Urgent Visits. Sent to Forms. documented in this encounter Plan of Treatment Not on file documented as of this encounter Visit Diagnoses Not on filedocumented in this encounter Care Teams Criminal Records Technician Relationship Specialty Start Date End Date Belkys Houston MD [address] [place] [id number] PCP - General Family Medicine 06/21/22 08/11/23 documented as of this encounter
--- OUTSIDE RECORDS SUMMARY | 2024-08-07 10:36 | XMS_ITS | Encounter Summary ---
Author Organization [facility] Address [facility] [place] [address] Care Team Providers Care Reel Slitter Name Role Phone Belkys Houston MD Primary Care Provider [phone] Reason for Visit * Auth/Cert (Routine) Specialty [...] EGD, UPPER GI ENDOSCOPY Maite Barraza MD [address] [place] [address] [place] [address] [facility] Referral ID Status Reason Start Date Expiration Date Visits Re quested Visits Authorized [id number] 1 1 Encounter Details Date Type Department Care Team ([facility] st Contact Info) Description 10/25/2022 1:11 PM EST Anesthesia Event Endoscopy at [address] [phone] Rachel Villarreal MD [address] [place] [address] [place] [address] Anesthesia Record Procedure Summary Procedure Name Responsible Anesthesiologist Anesthesia Start Time Anesthesia Stop Time COLONOSCOPY, DIAGNOSTIC (WRVU 3.26) (Trunk) Rachel Villarreal MD 10/25/22 1311 10/25/22 1402 Events Date Time Event Comment 10/25/2022 1301 AN Verify 1308 1311 Start 1311 An Start Data 1319 Anesthesia Ready 1325 an bradly now Bite block out #36 nasal trumpet in R 1400 an stop data 1402 Recovery or ICU Handoff Kathy ent care was transferred to the destination unit staff after review of the patient's medical history, current anesthetic/surgical status and plan, according to the Provider Handoff Checklist. 1402 Stop Meds Name Total Midazolam 2 mg fentaNYL 100 mcg IV Lidocaine 100 mg Propofol 120 mg Propofol INF 664.29 mg Glycopyrrolate 0.2 mg Benzocaine 20% [place] 1 spray lactated ringers infusion 600 mL * Agents Name O2 Auxiliary Flowmeter 1 * Blood No blood administrations on file. Lines, Drains, and Airways Type Details Placement Removal (RETIRED) Peripheral IV Line - Single Lumen 07/19/22; 1346; median cubital vein (antecubital fossa), left; [id number] catheter system; 20 gauge; Sherine Szymanski; LDA not present upon assessment; 11/30/22; 1017 07/19/22 1346 by Sherine Keene 11/30/22 1017 by Madison Holly, TETE (RETIRED) Peripheral IV Line - Single Lumen 10/25/22; 1141; metacarpal vein (top of hand), right; [id number] catheter system; Anatomical Landmarks; 20 gauge; Deandra Bentlye RN; 10/25/22; 1520 10/25/22 1141 by Amber Francis RN 10/25/22 1520 by Carrie Mckeon, TETE documented in this encounter Social History Tobacco Use Types Packs/Day Years [...] Sign Reading Time Taken Comments Blood Pressure - - Pulse - - Temperature - - Respiratory Rate 10/25/2022 1:59 PM EST Oxygen Saturation - - Inhaled Oxygen Concentration - - Weight - - Height - - Body Mass Index - - documented in this encounter OR Notes * Anesthesia Postprocedure Evaluation - Rachel Villarreal MD - 10/25/2022 2:34 PM EST Department of Anesthesiology Post-procedure Note Patient: Demetrio Rivers Procedure Summary Date: 10/25/22 Room / Location: [facility] ENDO 1 / [facility] ENDOSCOPY Anesthesia Start: 1311 Anesthesia Stop: 1402 Procedures: COLONOSCOPY, DIAGNOSTIC (Trunk) EGD, UPPER GI ENDOSCOPY Diagnosis: (black tarry stools) Surgeons: Maite Barraza MD Responsible Provider: Rachel Villarreal MD Anesthesia Type: MAC ASA Status: 3 All Anesthesia Providers: Anesthesiologist: Rachel Villarreal MD Vitals Value Taken Time BP 144/105 10/25/22 1415 Temp 36.5 ??C (97.7 ??F) 10/25/22 1400 Pulse 73 10/25/22 1406 Resp 22 10/25/22 1406 SpO2 97 % 10/25/22 1406 Pain Level 0 10/25/22 1400 Patient Location: PACU/Preoperative Unit Level of Consciousness: Awake and Alert Pain Management: Satisfactory Analgesia PONV: None Cardiovascular Status: At Baseline Respiratory Status: At Baseline Postoperative Fluid Status: Intravascular EUvolemia Possible Anesthetic Complications: NONE apparent at time of evaluation Final Primary Anesthesia Type: MAC (The anesthetic type performed was the same as planned.) Comments: Hypertensive at baseline * Anesthesia Preprocedure Evaluation - Rachel Villarreal MD - 10/25/2022 1:06 PM EST Pre-Anesthesia Evaluation for: Demetrio Rivers a 46 y.o. male. Procedure(s): COLONOSCOPY, DIAGNOSTIC EGD, UPPER GI ENDOSCOPY Patient Active Problem List Diagnosis Date Noted ??? Primary hypertension 09/17/2022 ??? Osteoarthritis of right knee 09/17/2022 ??? Tubular adenoma of colon 09/17/2022 ??? Diverticulitis of both small and large intestine without perforation or abscess with bleeding 09/17/2022 Past Medical History: Diagnosis Date ??? Chronic pain ??? High blood pressure ??? Obstructive sleep apnea Past Surgical History: Procedure Laterality Date ??? KNEE SURGERY Right Social History Tobacco Use ??? Smoking status: Former Years: 10.00 Types: Cigarettes Quit date: 2021 Years since quittin.0 ??? Smokeless tobacco: Never ??? Tobacco comments: Doesn't smoke during the week. Substance Use Topics ??? Alcohol use: Yes Alcohol/week: 14.0 standard drinks Types: 14 Cans of beer per week Comment: maybe a beer after work Social History Substance and Sexual Activity Drug Use Yes ??? Frequency: 7.0 times per week ??? Types: Marijuana Allergies Allergen Reactions ??? Bactrim [Sulfamethoxazole-Trimethoprim] Hives and Other (See Comments) Fever, sweating, shortness of breath Medications: MAR and/or home medications have been reviewed. Physical Exam: Preprocedure Vitals Current as of 10/25/22 1306 BP: 149/95 Pulse: 78 Resp: 19 SpO2: 96 Temp: 36.8 ??C (98.3 ??F) Height: 180.3 cm (5' 11) (10/25/22) Weight: 108.9 kg (240 lb) (10/25/22) BMI: 33.47 IBW: 75.3 kg (165 lb 14.8 oz) Last edited 10/25/22 1305 by DE Currently displaying vitals information from multiple entries within 180 minutes of most recent vitals. Airway Assessment: Mallampati: II TM distance: >3 FB Cardiovascular Assessment: Rhythm: regular Pulmonary Assessment: unlabored breathing Dental Assessment: - normal exam Misc Assessment: IV access: Peripheral line Last Filed Perioperative Cognitive Screening None Anesthesia Plan: ASA 3 MAC, with a(n) intravenous induction 46 yo for EGD/colonoscopy NACs in past Morbid obesity. Never tested for AMANDA but highly suspected HTN Plans and risks of MAC discussed Informed Consent: Anesthetic plan and risks discussed with patient. Anesthesia Screening documented in this encounter Plan of Treatment Not on file documented as of this encounter Visit Diagnoses Not on filedocumented in this encounter Administered Medications Inactive Administered Medications - up to 3 most recent administrations Medication Order MAR Action Action Date Dose Rate Site benzocaine (Hurricane One) 20% spray (restricted to guanakito-procedural use) Oral, PRN, Starting on Tue10/25/22 at 1313, Until Tue10/25/22 at 1403, Anesthesia Intra-op Given 10/25/2022 1:13 PM EST 1 spray fentaNYL (PF) (50 mcg/mL) injection Intravenous, PRN, Starting on Tue10/25/22 at 1326, Until Tue10/25/22 at 1403, Anesthesia Intra-op, Routine Given 10/25/2022 1:30 PM EST 50 mcg Given 10/25/2022 1:26 PM EST 50 mcg glycopyrrolate (Robinul) (0.2 mg/mL) injection Intravenous, PRN, Starting on Tue10/25/22 at 1315, Until Tue10/25/22 at 1403, Anesthesia Intra-op, Routine Given 10/25/2022 1:15 PM EST 0.2 mg lactated ringers infusion 500 mL, at 50 mL/hr, Intravenous, CONTINUOUS, Starting on Tue10/25/22 at 1145, Until Tue10/25/22 at 1521, Day of Surgery (Day of Procedure) New Bag 10/25/2022 1:55 PM EST New Bag 10/25/2022 11:45 AM EST 500 mLs 50 mL/hr lidocaine (pf) (Xylocaine) (20 mg/mL) 2% injection syringe Intravenous, PRN, Starting on Tue10/25/22 at 1318, Until Tue10/25/22 at 1403, Anesthesia Intra-op, Routine Given 10/25/2022 1:18 PM EST 100 mg midazolam (pf) (Versed) (1 mg/mL) injection Intravenous, PRN, Starting on Tue10/25/22 at 1315, Until Tue10/25/22 at 1403, Anesthesia Intra-op, Routine Given 10/25/2022 1:15 PM EST 2 mg propofoL (Diprivan) (10 mg/mL) infusion Intravenous, CONTINUOUS PRN, Starting on Tue10/25/22 at 1318, Until Tue10/25/22 at 1403, Anesthesia Intra-op, Routine Rate/Dose Change 10/25/2022 1:38 PM EST 150 mcg/kg/min 98.01 mL/hr New Bag 10/25/2022 1:18 PM EST 170 mcg/kg/min 111.078 m L/hr propofoL (Diprivan) 10 mg/mL bolus injection (Anesthesia) Intravenous, PRN, Starting on Tue10/25/22 at 1318, Until Tue10/25/22 at 1403, Anesthesia Intra-op Given 10/25/2022 1:51 PM EST 20 mg Given 10/25/2022 1:18 PM EST 100 mg documented in this encounter Care Teams Reel Slitter Relationship Specialty Start Date End Date Belkys Houston MD [address] [place] [id number] PCP - General Family Medicine 06/21/22 08/11/23 documented as of this encounter
--- OUTSIDE RECORDS SUMMARY | 2024-08-07 10:36 | XMS_ITS | Encounter Summary ---
Author Organization [facility] Address [facility] [place] [address] Care Team Providers Care Cancer Center Director Name Role Phone Belkys Houston MD Primary Care Provider [phone] Encounter Details Date Type Department Care Team (Late st Contact Info) Description 12/12/2022 Telephone Primary Care at [address] [phone] Poonam Simmons APRN [facility] [place] [address] Social History Tobacco Use Types Packs/Day Years [...] encounter Miscellaneous Notes * Telephone Encounter - Poonam Simmons APRN - 12/12/2022 8:54 PM EDT Late entry Pt called on 12/06/22 pts called and pt was in background answering questions - he had concerns as was being treatedfor diverticulitis was on abx x 1 week was having worsening pain and difficulty with amublation d/tpain. Pt advised that given that he had been on abx for treatment and was having severe discomfort, vomiting, chills and sweats he should be seen in the ER for immediate eval Pt stated he did not want to go to ER d/t concerns of cost - reviewed with pt and that this may represent sepsis and ER eval was needed They agreed to seek ER care documented in this encounter Plan of Treatment Not on file documented as of this encounter Visit Diagnoses Not on filedocumented in this encounter Care Teams Cancer Center Director Relationship Specialty Start Date End Date Belkys Houston MD [address] [place] [address] [place] [address] PCP - General Family Medicine 06/21/22 08/11/23 documented as of this encounter
--- OUTSIDE RECORDS SUMMARY | 2024-08-07 10:36 | XMS_ITS | Encounter Summary ---
Author Organization [facility] Address [facility] [place] [address] Care Team Providers Care Nutrition Assistant Name Role Phone Belkys Houston MD Primary Care Provider [phone] Reason for Referral * Diagnostic Test (STAT) - Closed Specialty Diagnoses / Procedures Referred By Contac t Referred To Contact Diagnoses Right calf pain Procedures Vascular Imaging Venous Lower Extremity Unilateral Amber Eastman APRN [address] [place] [address] [facility] [address] [place] [address] Referral ID Status Reason Start Date Expiration Date V isits Requested Visits Authorized [id number] Closed Specialty Service Requested 06/16/2023 12/14/2024 1 1 Reason for Visit * Diagnostic Test (STAT) - Closed Specialty Diagnoses / Procedures Referred By Contac t Referred To Contact Diagnoses Right calf pain Procedures Vascular Imaging Venous Lower Extremity Unilateral Amber Eastman, BARRELHEAD INSPECTOR [address] [place] [address] [facility] [address] [place] [address] Referral ID Status Reason Start Date Expiration Date V isits Requested Visits Authorized [id number] Closed Specialty Service Requested 06/16/2023 12/14/2024 1 1 Encounter Details Date Type Department Care Team (Latest Contact Info) Description 06/16/2023 10:55 AM EDT - 06/16/2023 12:29 PM EDT Hospital Encounter Ultrasound at [place] [address] [facility] [place] [phone] Amber Eastman, BARRELHEAD INSPECTOR [address] [facility] [place] [address] Right calf pain Discharge Disposition: Home Social History Tobacco [...] Procedure Name Priority Date/Time Associated Diagnosis Comments VASCULAR IMAGING VENOUS LOWER EXTREMITY UNILATERAL STAT 06/16/2023 11:32 AM EDT Right calf pain VASCULAR STUDY SCAN 06/16/2023 1 2:00 AM EDT documented in this encounter Results * Vascular Imaging Venous Lower Extremity Unilateral [...] who have questions please contact the health home care consultant that requested your imaging first. ? Electronically signed by: DANIELE JOSEPH MD, [facility] ([phone]), at 06/16/2023 11:39 AM Narrative 06/16/2023 11:39 [...] patients who have questions please contactthe health home care consultant that requested your imaging first. Electronically signed by: DANIELE JOSEPH MD, [facility]([phone]), at 06/16/2023 11:39 AM Amber Eastman APRN IMG AFFIL VASCULAR ORDERABLES * SCAN DOC: VASCULAR STUDY (06/16/2023 12:00 AM EDT) Anatomical Region Laterality Modality VASC Narrative 06/16/2023 12:00 AM EDT Ordered by an unspecified provider. Scanning Provider MEDIA MGR SCAN EXT O RDR/RSLT documented in this encounter Visit Diagnoses Diagnosis Right calf pain documented in this encounter Care Teams Nutrition Assistant Relationship Specialty Start Date End Date Belkys Houston MD [address] [place] [id number] PCP - General Family Medicine 06/21/22 08/11/23 documented as of this encounter
--- OUTSIDE RECORDS SUMMARY | 2024-08-07 10:36 | XMS_ITS | Encounter Summary ---
Author Organization [facility] Address [facility] [place] [address] Care Team Providers Care Elevator Operator Name Role Phone Belkys Houston MD Primary Care Provider Reason for Referral * Physical Therapy (Routine) - Closed Specialty Diagnoses / Procedures Referred By Contac t Referred To Contact Physical Therapy Diagnoses Chronic pain of left knee Chronic pain of right knee Amber Eastman APRN [address] [place] [address] [facility] [address] [place] [address] Referral ID Status Reason Start Date Expiration Date V isits Requested Visits Authorized [id number] Closed Evaluate and Treat 12/17/2022 12/17/2023 12 12 * Consultation (Routine) - Closed Specialty Diagnoses / Procedures Referred By Contac t Referred To Contact Orthopaedics Diagnoses Chronic pain of left knee Chronic pain of right knee Amber Eastman APRN [address] [place] [address] [facility] [address] [place] [phone] Referral ID Status Reason Start Date Expiration Date V isits Requested Visits Authorized [id number] Closed Consult, Test & Treat 12/17/2022 12/17/2023 1 1 Encounter Details Date Type Department Care Team ([facility] st Contact Info) Description 12/17/2022 1:25 PM EDT Office Visit Primary Care at [address] [phone] Amber Eastman APRN [address] [place] [address] [place] [address] Right flank pain; Chronic pain of left knee; Chronic pain of right knee; Diverticulitis of both small and large intestine without perforation or abscess with bleeding; Primary hypertension Social History Tobacco Use Types [...] Sign Reading Time Taken Comments Blood Pressure 128/86 12/17/2022 2:13 PM EDT Pulse 96 12/17/2022 1:40 PM EDT Temperature 36.4 ??C (97.6 ??F) 12/17/2022 1:40 PM ED T Respiratory Rate - - Oxygen Saturation 97% 12/17/2022 1:40 PM EDT Inhaled Oxygen Concentration - - Weight 112 kg (247 lb) 12/17/2022 1:40 PM EDT Height - - Body Mass Index 34.45 10/25/2022 11:43 AM EST documented in this encounter Patient Instructions * Patient Instructions* Amber Eastman APRN - 12/17/2022 1:25 PM EDT Apply heat or ice as needed to bilateral knees as needed. documented in this encounter Progress Notes * Amber Eastman APRN - 12/17/2022 1:25 PM EDT Assessment/Plan: 1. Right flank pain Patient reports decrease in his pain and it continues to improve every day. He has used Lidoderm patches with good effect. Denies any issues with urination and denies any hematuria. ER lab work reviewed no additional lab work needed at time of visit. 2. Chronic pain of left knee Patient reports chronic pain to his left leg that continues to increase. No swelling, redness, rashes or bruising noted to knee. Patient reports that he has increased with certain types of movement, negative anterior and posterior drawer test. No swelling noted to lower extremity. Patient denies any recent falls or trauma to her knee. Will obtain x-ray and refer patient to physical therapy as well as orthopedics. We will also prescribe patient diclofenac gel to apply as needed for comfort. Patient in agreement with plan. - XR Knee 3 Views Bilat; Future - Referral to Orthopaedics - Referral to Physical Therapy - diclofenac (Voltaren) 1 % Gel; Apply topically 4 times daily as needed. To bilateral knees Dispense: 450 g; Refill: 5 3. Chronic pain of right knee Patient reports he has significant pain to his right knee that continues to become worse. At this point in time the pain to his right knee is affecting his activities of daily living. He reports thatnow he is having a difficult time with ambulation and weightbearing activities. He reports it is especially hard to walk up and down stairs which causes extreme pain. He reports that his pain is constant and is sharp in nature. He reports that standing for more than 5 minutes will aggravate his pain. Today the patient rates his pain a 4/10 at rest and a 10/10 with activity. We will plan to have patient get x-ray of right knee today and will refer patient to orthopedics for further management. We will also place referral to physical therapy. Patient will also utilize diclofenac as needed for pain management. Patient is interested in possibly getting a cortisone shot to right knee. - XR Knee 3 Views Bilat; Future - Referral to Orthopaedics - Referral to Physical Therapy - diclofenac (Voltaren) 1 % Gel; Apply topically 4 times daily as needed. To bilateral knees Dispense: 450 g; Refill: 5 4. Diverticulitis of both small and large intestine without perforation or abscess with bleeding Patient reports that he has completed his antibiotic regiment. She denies any issues or concerns atthis time. Denies any GI issues. 5. Primary hypertension Patient's blood pressure noted to be 132/90 during the beginning of the visit. Blood pressure rechecked and noted to be 128/86 prior to ending this. The patient is currently taking lisinopril 40 mg p.o. daily without any difficulties. Patient is due for annual physical exam in September 2023 patient e ducated to follow-up sooner with PCP if needed. ID: Demetrio Rivers is a 47 y.o. male HPI patient seen in office today for follow-up of recent ER visit on 12/06 for complaints of acute sudden right flank pain. He reports that his pain has improved since being home and improved with theLidoderm patch. He believes that since it is improving it most likely was a musculoskeletal sprain or strain. He was also seen in the emergency department on 11/30 for a diverticulitis flare. He denies any issues or concerns with this at this time. His main concern today is his chronic bilateral knee pain. He reports that his pain continues to get worse and is now affecting his activities of dailyliving and it is making him hard to complete his job. He denies any recent fevers, chills, falls ortrauma. ROS: Review of Systems Constitutional: Negative for chills, fever, malaise/fatigue and weight loss. Respiratory: Negative for shortness of breath and wheezing. Cardiovascular: Negative for chest pain and palpitations. Gastrointestinal: Negative for abdominal pain, constipation, diarrhea, heartburn, nausea and vomiting. Genitourinary: Negative for dysuria, frequency, hematuria and urgency. Musculoskeletal: Positive for joint pain. Negative for falls. Skin: Negative for rash. Neurological: Negative for dizziness and headaches. Patient Active Problem List Diagnosis Code ??? Primary hypertension I10 ??? Osteoarthritis of right knee M17.11 ??? Tubular adenoma of colon D12.6 ??? Diverticulitis of both small and large intestine without perforation or abscess with bleeding K57.53 MEDICATIONS: Current Outpatient Medications on File Prior to Visit Medication Sig Dispense Refill ??? omeprazole (PriLOSEC) 40 mg Capsule, Delayed Release(E.C.) Take 1 capsule by mouth daily. Take at least 30 min prior to eating/drinking. 90 capsule 1 ??? meloxicam (MOBIC) 15 mg Tablet Take 1 tablet by mouth daily. 30 tablet 5 ??? lisinopriL (Zestril) 40 mg Tablet Take 1 tablet by mouth daily. 90 tablet 3 ??? lidocaine (Lidoderm) 5% Adhesive Patch, Medicated Place 1 patch onto affected area for 12 hoursthen remove for 12 hours 30 patch 0 No current facility-administered medications on file prior to visit. ALLERGIES: Allergies Allergen Reactions ??? Bactrim [Sulfamethoxazole-Trimethoprim] Hives and Other (See Comments) Fever, sweating, shortness of breath VITALS: Vitals: 12/17/22 1340 12/17/22 1413 BP: 132/90 128/86 BP Location (NBP): Left arm Patient Position: Sitting Pulse: 96 Temp: 36.4 ??C (97.6 ??F) TempSrc: Temporal SpO2: 97% Weight: 112 kg (247 lb) Physical Exam HENT: Head: Normocephalic and atraumatic. Eyes: Conjunctiva/sclera: Conjunctivae normal. Cardiovascular: Rate and Rhythm: Normal rate and regular rhythm. Heart sounds: No murmur heard. Pulmonary: Effort: Pulmonary effort is normal. Breath sounds: Normal breath sounds. Abdominal: General: Abdomen is flat. Bowel sounds are normal. There is no distension. Palpations: Abdomen is soft. Tenderness: There is no abdominal tenderness. Musculoskeletal: Right knee: Swelling present. No deformity, effusion, erythema, ecchymosis, lacerations, bony tenderness or crepitus. Decreased range of motion. Tenderness present. Normal pulse. Right lower le+ Edema present. Skin: General: Skin is warm and dry. Capillary Refill: Capillary refill takes less than 2 seconds. Neurological: Mental Status: He is alert and oriented to person, place, and time. Psychiatric: Mood and Affect: Mood normal. Behavior: Behavior normal. Thought Content: Thought content normal. Judgment: Judgment normal. RESULTS: No results found for this or any previous visit (from the past 168 hour(s)). documented in this encounter Plan of Treatment Scheduled Referrals Name Type Priority Associated Diagnoses Order Schedule Referral to Orthopaedics Outpatient Referral Routine Chronic pain of left knee Chronic pain of right knee Ordered: 12/17/2022 Referral to Physical Therapy Outpatient Referral Routine Chronic pain of left knee Chronic pain of right knee Ordered: 12/17/2022 documented as of this encounter Results * XR Knee 3 [...] who have questions please contact the health career technology teacher that requested your imaging first. ? Electronically signed by: PRUDENCIO GREEN MD, [facility] ([phone]), at 12/17/2022 2:42 PM Narrative 12/17/2022 2:42 [...] patients who have questions please contactthe health career technology teacher that requested your imaging first. Electronically signed by: PRUDENCIO GREEN MD, [facility] ([phone]), at 12/17/2022 2:42 PM Amber Eastman APRN IMG DX ORDERABLES documented in this encounter Visit Diagnoses Diagnosis Right flank pain Abdominal pain, unspecified site Chronic pain of left knee Pain in joint, lower leg Chronic pain of right knee Diverticulitis of both small and large intestine without perforation or abscess with bleeding Divertulitis of small intestine with hemorrhage Primary hypertension Unspecified essential hypertension Chronic pain of left knee Pain in joint, lower leg Chronic pain of right knee documented in this encounter Care Teams Elevator Operator Relationship Specialty Start Date End Date Belkys Houston MD [address] [place] [address] PCP - General Family Medicine 06/21/22 08/11/23 documented as of this encounter
--- OUTSIDE RECORDS SUMMARY | 2024-08-07 10:36 | XMS_ITS | Encounter Summary ---
Author Organization [facility] Address [facility] [place] [address] Care Team Providers Care Pricer Bagger Name Role Phone Belkys Houston MD Primary Care Provider [phone] Encounter Details Date Type Department Care Team ([facility] st Contact Info) Description 06/08/2023 4:40 PM EDT Office Visit Primary Care at [address] [phone] Destinee Escamilla, WORK ADJUSTMENT INSTRUCTOR [address] [place] [address] Fatigue, unspecified type; Pain in right hip; Numbness and tingling; Acute otitis externa of both ears, unspecified type; Back pain, unspecified back location, unspecified back pain laterality, unspecified chronicity Social History Tobacco Use Types [...] Sign Reading Time Taken Comments Blood Pressure 154/96 06/08/2023 5:31 PM EDT Pulse 104 06/08/2023 5:31 PM EDT Temperature 36.3 ??C (97.4 ??F) 06/08/2023 5:31 PM ED T Respiratory Rate - - Oxygen Saturation 97% 06/08/2023 5:31 PM EDT Inhaled Oxygen Concentration - - Weight - - Height - - Body Mass Index - - documented in this encounter Progress Notes * Destinee Escamilla, WORK ADJUSTMENT INSTRUCTOR - 06/08/2023 4:40 PM EDT Subjective: Patient ID: Demetrio Rivers is a 47 y.o. male with PMH as noted below Patient Active Problem List Diagnosis Code Primary hypertension I10 Osteoarthritis of right knee M17.11 Tubular adenoma of colon D12.6 Diverticulitis of both small and large intestine without perforation or abscess with bleeding K57.53 Allergies Allergen Reactions Bactrim [Sulfamethoxazole-Trimethoprim] Hives and Other (See Comments) Fever, sweating, shortness of breath He reports that he quit smoking about 20 months ago. His smoking use included cigarettes. He has never used smokeless tobacco. HPI Here today for evaluation of increased fatigue, hip and back pain. He denies any acute fevers that he is aware of, no nausea or vomiting but does report progressive fatigue. He has no known tick bites that he can recall in the recent past. He has not tested for COVID-19 at this juncture. Reports that he has slept a significant amount over the last several days. Denies any diarrhea, denies any abdominal pain, denies any shortness of breath. No known viral exposures. He reports In terms of back pain, he reports that he is having numbness and tingling that goes down to his toes. Denies any distal cooling. Denies any pain with ambulation, no muscle aching, pain does not improve with elevation. He does report that he is having difficulty finding a comfortable position Denies: loss of bowel or bladder control, numbness of saddle area, known infection, no IV drug use,fever or weight loss, unrelenting pain that causing sleep awakening or difficulty finding a comfortable position. POCT urinalysis showed yellow color, clear appearance, no glucose, no bilirubin, no ketones, specific gravity of 1.05, RBCs, pH of 5.6, 0.2 of your bili, no nitrates no leukocytes. No evidence of infection. Demetrio additionally reports that he is having increased ear itchiness, uses ear buds frequently. Is not sure if he has had otorrhea on the right side. Denies any acute pain. Recent Results (from the past 24 hour(s)) TSH [place] Result Value Ref Range TSH 0.94 0.27 - 4.20 mcIU/mL CRP, acute inflammation Result Value Ref Range CRP 3.9 <=4.9 mg/L Comprehensive metabolic panel (non-fasting) Result Value Ref Range Glucose Lvl 103 65 - 199 mg/dL BUN 11 10 - 20 mg/dL Creatinine 1.14 0.80 - 1.50 mg/dL Sodium 139 135 - 145 mmol/L Potassium 3.9 3.5 - 5.0 mmol/L Chloride 102 98 - 107 mmol/L CO2 23 22 - 31 mmol/L Anion Gap 14 5 - 15 mmol/L Calcium 9.6 8.5 - 10.5 mg/dL Total Protein 7.3 6.1 - 8.0 g/dL Albumin 4.1 3.2 - 5.2 g/dL AST 34 0 - 39 unit/L ALT 40 0 - 55 unit/L Alk Phos 80 40 - 130 unit/L Total Bilirubin 0.5 0.2 - 1.3 mg/dL Estimated GFR 80 >=60 mL/min/1.73 m?? Hemogram Result Value Ref Range WBC 8.4 4.0 - 9.5 x10(3)/mcL RBC 5.11 4.58 - 5.54 x10(6)/mcL Hemoglobin 16.0 13.7 - 16.5 g/dL Hematocrit 46.3 40.5 - 48.5 % MCV 90.6 82.9 - 93.1 fL MCH 31.3 27.5 - 32.1 pg MCHC 34.6 32.0 - 35.7 g/dL Platelets 346 145 - 357 x10(3)/mcL RDWSD 43.0 36.0 - 45.0 fL RDWCV 13.0 11.4 - 13.8 % MPV 8.8 7.6 - 12.9 fL nRBC % Auto 0.0 % nRBC Abs Auto 0.000 0.000 - 0.000 x10(3)/mcL Differential, Automated Result Value Ref Range Neutrophils % 65.1 % Neutr Abs (ANC) 5.50 1.70 - 6.10 x10(3)/mcL Lymphocytes % 25.9 % Lymphocytes Abs 2.2 0.9 - 3.2 x10(3)/mcL Monocytes % 6.2 % Monocyte Abs 0.5 0.3 - 0.9 x10(3)/mcL Eosinophils % 1.9 % Eosinophils Abs 0.2 0.0 - 0.4 x10(3)/mcL Basophils % 0.5 % Basophils Abs 0.0 0.0 - 0.1 x10(3)/mcL Immature Gran % 0.40 % [place] Gran Abs 0.03 0.00 - 0.04 x10(3)/mcL Hemoglobin A1c Result Value Ref Range Hemoglobin A1C 5.7 (H) 4.3 - 5.6 % Est Avg Gluc 117 mg/dL COVID-19 PCR Saliva ([place]) Specimen: Saliva Symptoms->Fever / Respiratory Symptoms Result Value Ref Range SARS-CoV-2 PCR, Saliva Not Detected Not Detected Review Of Systems: As noted in HPI; all other review of systems are negative. Objective: Vitals: 06/08/23 1731 BP: (!) 154/96 BP Location (NBP): Left arm Patient Position: Sitting BP Cuff Sizes: Large Adult (32-43 cm) Pulse: (!) 104 Temp: 36.3 ??C (97.4 ??F) SpO2: 97% Current Outpatient Medications: diclofenac (Voltaren) 1 % Gel, Apply topically 4 times daily as needed. To bilateral knees, Disp: 450 g, Rfl: 5 omeprazole (PriLOSEC) 40 mg Capsule, Delayed Release(E.C.), Take 1 capsule by mouth daily. Take at least 30 min prior to eating/drinking. (Patient not taking: Reported on 12/17/2022), Disp: 90 capsule, Rfl: 1 meloxicam (MOBIC) 15 mg Tablet, Take 1 tablet by mouth daily., Disp: 30 tablet, Rfl: 5 lisinopriL (Zestril) 40 mg Tablet, Take 1 tablet by mouth daily., Disp: 90 tablet, Rfl: 3 lidocaine (Lidoderm) 5% Adhesive Patch, Medicated, Place 1 patch onto affected area for 12 hours then remove for 12 hours, Disp: 30 patch, Rfl: 0 Physical Exam Vitals reviewed. Constitutional: Appearance: Normal appearance. He is ill-appearing. He is not diaphoretic. HENT: Head: Normocephalic. Nose: Nose normal. Eyes: Pupils: Pupils are equal, round, and reactive to light. Cardiovascular: Rate and Rhythm: Normal rate and regular rhythm. Pulses: Normal pulses. Dorsalis pedis pulses are present on the right side and present on the left side. Posterior tibial pulses are present on the right side and present on the left side. Heart sounds: Normal heart sounds. Pulmonary: Effort: Pulmonary effort is normal. Breath sounds: Normal breath sounds. Musculoskeletal: Right hip: Tenderness and bony tenderness present. Decreased range of motion. Right lower leg: No edema. Left lower leg: No edema. Comments: Decreased range of motion with internal and external rotation of hip, decreased range of motion with flexion extension of lumbar spine as well as rotation. Patient symptoms not relieved with rest, gait normal. Feet: Right Foot: Monofilament testing: Intact sensation Skin Integrity: Positive for toenail abnormality. Skin: General: Skin is warm and dry. Neurological: General: No focal deficit present. Mental Status: He is alert and oriented to person, place, and time. Psychiatric: Mood and Affect: Mood normal. Behavior: Behavior normal. Thought Content: Thought content normal. Judgment: Judgment normal. Assessment and Plan: Diagnoses and all orders for this visit: Fatigue, unspecified type - CBC (with Diff) - TSH [place] - CRP, acute inflammation - Comprehensive metabolic panel (non-fasting) - Cancel: Hemoglobin A1c; Future - Hemoglobin A1c - Lyme IgG & IgM Antibody - COVID-19 Flu A/B and RSV PCR ([facility]) - POC Urine dipstick (Automated)_URGENT VISITS ONLY; Future - COVID-19 PCR Saliva ([facility]) Pain in right hip - CBC (with Diff) - CRP, acute inflammation - Comprehensive metabolic panel (non-fasting) - XR Lumbar Spine 2 Or 3 Views (Generic); Future - XR Pelvis and Hip 2 Views Right; Future Numbness and tingling - Cancel: Hemoglobin A1c; Future - Hemoglobin A1c Slight elevation in A1c at 5.7, this would not account for pain on the right leg. Thyroid function within normal limits, does not account for acute fatigue. ERP within normal limits, liver and kidneyfunction within normal limits, no evidence of leukocytosis to suggest systemic infection. Awaiting Lyme testing. X-rays obtained did not show any acute fracture of either hips or Lumbar spine. No acute osseous abnormalities. Per my read. We will alert patient of radiology read differs from my own. I am suspicious that he has an acute muscle strain, likely exacerbated by previous knee injury. I will treat with the use of prednisone for acute inflammation. In terms of ear itchiness, I have sent in a prescription for Ciprodex, as his symptoms are most consistent with an otitis externa. I would recommend that patient follow-up with PCP if symptoms are not improved with the methods as noted above. Supportive measures reviewed. Medication as prescribed. Follow up if worsening or failing to gradually improve as anticipated. Voices understanding and agrees. Will call with concerns. documented in this encounter Plan of Treatment Not on file documented as of this encounter Procedures Procedure Name Priority Date/Time Associated Diagnosis Comments COVID-19 PCR SALIVA ([place]) STAT 06/08/2023 6:35 PM EDT Fatigue, unspecified type TSH [place] STAT 06/08/2023 6:22 PM EDT Fatigue, unspecified type CRP, ACUTE INFLAMMATION STAT 06/08/2023 6:22 PM EDT Fatigue, unspecified type Pain in right hip LYME IGG & IGM ANTIBODY STAT 06/08/2023 6:22 PM EDT Fatigue, unspecified type HEMOGRAM STAT 06/08/2023 6:22 PM EDT Fatigue, unspecified type Pain in right hip DIFFERENTIAL, AUTOMATED STAT 06/08/2023 6:22 PM EDT Fatigue, unspecified type Pain in right hip CBC (WITH DIFF) STAT 06/08/2023 6:22 PM EDT Fatigue, unspecified type Pain in right hip HEMOGLOBIN A1C STAT 06/08/2023 6:22 PM EDT Fatigue, unspecified type Numbness and tingling COMPREHENSIVE METABOLIC PANEL STAT 06/08/2023 6:22 PM EDT Fatigue, unspecified type Pain in right hip POCT URINE DIPSTICK Routine 06/08/2023 Fatigue, unspecified type documented in this encounter Results * XR [...] questions please contact the health client care consultant that requested your imaging first. ? Electronically signed by: DANIELE JOSEPH MD, [facility] ([phone]), at 06/09/2023 7:37 AM Narrative 06/09/2023 7:37 [...] have questions please contactthe health client care consultant that requested your imaging first. Electronically signed by: DANIELE JOSEPH MD, [facility]([phone]), at 06/09/2023 7:37 AM Destinee Escamilla WORK ADJUSTMENT INSTRUCTOR IMG DX ORDERABLES * XR Pelvis and Hip 2 Views [...] questions please contact the health client care consultant that requested your imaging first. ? Electronically signed by: DANIELE JOSEPH MD, [facility] ([phone]), at 06/09/2023 7:58 AM Narrative 06/09/2023 7:58 [...] have questions please contactthe health client care consultant that requested your imaging first. Electronically signed by: DANIELE JOSEPH MD, [facility]([phone]), at 06/09/2023 7:58 AM Destinee Escamilla WORK ADJUSTMENT INSTRUCTOR IMG DX ORDERABLES * COVID-19 PCR Saliva ([facility]) (06/08/2023 6:35 PM EDT) SARS-CoV-2 PCR, Saliva Not Detected Not Detected [facility] Comment: This result should be interpreted in combination with the clinical observations, patient history and epidemiological information. Testing for SARS-CoV-2 (Severe acute respiratory syndrome coronavirus 2, formerly known as 2019 novel coronavirus or 2019-nCoV) to aid in the diagnosis of COVID-19 is performed using a Real Time Reverse Transcriptase (RT-PCR) method with the BIO-RAD [id number]. ??This method was established and validated by the [employer], Department of Epidemiology of Microbial Diseases, that includes the Clinical Molecular Diagnostics Laboratory, Department of Pathology, [facility], located at [address] [place] [address], that are also certified under the Clinical Laboratory Improvement Amendments of 1988 (CLIA '88), 42 U.S.C. section 263a and meet the requirements to perform high complexity tests. ??RT-PCR CoV-2 EUA assay is intended for In-vitro Diagnostic (IVD) use with saliva specimens collected from individuals meeting the CDC criteria for testing. The RT-PCR assay is performed based on the instructions for use provided by [facility]. Testing is performed in the Microbiology Laboratory at [facility], certified under the Clinical Laboratory Improvement Amendments of 1988 (CLIA), 42 U.S.C. section 263a, to perform high complexity tests. Assay performance has been verified according to clinical laboratory regulatory requirements. Test results are provided above. A result of Not Detected indicates that the viral RNA target is not present but does not preclude SARS-CoV-2 infection. False negative results may occur if a specimen is improperly collected, transported or handled; if amplification inhibitors are present; or if inadequate numbers of viral particles are present in the specimen. A result of Detected suggests a current or recent infection and the patient is presumed to be infected. As required or requested by public health authorities, positive specimens may be sent for additional testing. Positive and negative predictive values for this test are highly dependent on disease prevalence. A result of Invalid indicates that neither the viral RNA targets nor the internal control target was detected. An invalid result suggests the presence of inhibitors or inadequate collection. Recollection is recommended in the case of an invalid result. CDC COVID-19 criteria for testing on human specimens and clinical management guidance information are available at the CDC Coronavirus Disease 2019 (COVID-19) webpage under Information for Healthcare Professionals (https://www.cdc.gov/coronavirus/2019-ncov/hcp/index.html) Additional information about this and other EUA tests can be found in provider and patient fact sheets at the following FDA website: https://www.fda.gov/medical-devices/mdnvfwicrre-omeamlj-8574-yyvnj-20-ywcaxbrkr- use-a puergigfufhps-otkqhyo-frlnukz/ufkwn-lunecfhavoi-fcqp Saliva 06/08/2023 6:35 PM EDT 06/08/2023 6:52 PM EDT Comment:Symptoms->Fever / Re spiratory Symptoms Narrative Resulting Agency Comment Spec In Lab Destinee K Patek WORK ADJUSTMENT INSTRUCTOR MICROBIOLOGY - GEN ERAL ORDERABLES Performing Organization Address [facility] Co de Phone Number [facility] [address] [place] [address] * Lyme IgG & IgM Antibody (06/08/2023 6:22 PM EDT) Pathologist [facility] Lyme Antibody Negative Negative [facility] Lyme Ab Comment Negative result does not exclude possibility of infection. [facility] Comment: Please note that as of 01/25/2023 that this testing is performed by the Special Chemistry Laboratory at [facility]. This change in testing location is associated with a change in testing methodology. Blood 06/08/2023 6:22 PM EDT 06/10/2023 7:20 AM EDT Narrative Resulting Agency Comment Spec In Lab Destinee Escamilla WORK ADJUSTMENT INSTRUCTOR IMMUNOLOGY ORDERAB LES Performing Organization Address [facility] Co de Phone Number [facility] [place] [address] * (ABNORMAL) Hemoglobin A1c (06/08/2023 6:22 PM EDT) Pathologist [facility] Hemoglobin A1c 5.7(H) 4.3 - 5.6 % [facility] Estimated Average Glucose 117 mg/dL [facility] Blood 06/08/2023 6:22 PM EDT 06/08/2023 6:51 PM EDT Narrative Resulting Agency Comment Spec In Lab Destinee Escamilla WORK ADJUSTMENT INSTRUCTOR CHEMISTRY ORDERABL ES Performing Organization Address [facility] Co de Phone Number [facility] [address] [place] [address] * Differential, Automated (06/08/2023 6:22 PM EDT) Pathologist [facility] Neutrophil % 65.1 % [facility] Neutrophil Absolute 5.50 1.70 - 6.10 x10(3)/[facility] Lymph % 25.9 % [facility] Lymphocytes Abs 2.2 0.9 - 3.2 x10(3)/[facility] Monocyte % 6.2 % [facility] Monocyte Abs 0.5 0.3 - 0.9 x10(3)/[facility] Eos % 1.9 % [facility] Eosinophils Abs 0.2 0.0 - 0.4 x10(3)/[facility] Basophil % 0.5 % [facility] Baso Absolute 0.0 0.0 - 0.1 x10(3)/[facility] Immature Gran % 0.40 % [facility] Comment: Immature granulocytes(IG's)percentage and absolute count will include metamyelocytes, myelocytes, and promyelocytes. Blood smears from CBCs yielding IG's will be scanned manually for concordance. If this scan disagrees with the automated IG or if promyelocytes are noted, a manual differential will be performed. Immature Gran Absolute 0.03 0.00 - 0.04 x10(3)/[facility] Blood 06/08/2023 6:22 PM EDT 06/08/2023 6:51 PM EDT Narrative Resulting Agency Comment Spec In Lab Destinee Escamilla WORK ADJUSTMENT INSTRUCTOR HEMATOLOGY ORDERAB LES Performing Organization Address City/State/[facility] Co de Phone Number [facility] [address] [place] [phone] * Hemogram (06/08/2023 6:22 PM EDT) White Blood Cell 8.4 4.0 - 9.5 x10(3)/[facility] Red Blood Cell 5.11 4.58 - 5.54 x10(6)/[facility] Hemoglobin 16.0 13.7 - 16.5 g/dL [facility] Hematocrit 46.3 40.5 - 48.5 % [facility] Mean Cell Volume 90.6 82.9 - 93.1 fL [facility] Mean Cell Hemoglobin 31.3 27.5 - 32.1 pg [facility] Mean Cell Hemoglobin Concentration 34.6 32.0 - 35.7 g/dL [facility] Platelet 346 145 - 357 x10(3)/[facility] RDW Standard Deviation 43.0 36.0 - 45.0 fL [facility] RDW coefficient of variation 13.0 11.4 - 13.8 % [facility] Mean Platelet Volume 8.8 7.6 - 12.9 fL [facility] NRBC% auto 0.0 % [facility] NRBC Absolute 0.000 0.000 - 0.000 x10(3)/mcL [facility] Blood 06/08/2023 6:22 PM EDT 06/08/2023 6:51 PM EDT Narrative Resulting Agency Comment Spec In Lab Destinee Escamilla WORK ADJUSTMENT INSTRUCTOR HEMATOLOGY ORDERAB LES [facility] [address] [place] [address] * Comprehensive metabolic panel (non-fasting) (06/08/2023 6:22 PM EDT) Glucose 103 65 - 199 mg/dL [facility] Comment:Diabetes: >=200 mg/d L plus symptoms Blood Urea Nitrogen 11 10 - 20 mg/dL [facility] Creatinine 1.14 0.80 - 1.50 mg/dL [facility] Sodium 139 135 - 145 mmol/L [facility] Potassium 3.9 3.5 - 5.0 mmol/L [facility] Comment: Please note: ??Patients with WBC >100,000 may have falsely elevated Potassium levels. ??For accurate Potassium quantification in these patients send serum separator tube (gold top) for subsequent determinations. ??Contact the Clinical Chemistry Laboratory if there are any questions. Chloride 102 98 - 107 mmol/L [facility] Carbon Dioxide 23 22 - 31 mmol/L [facility] Anion Gap 14 5 - 15 mmol/L [facility] Calcium 9.6 8.5 - 10.5 mg/dL [facility] Protein, Total 7.3 6.1 - 8.0 g/dL [facility] Albumin 4.1 3.2 - 5.2 g/dL [facility] Aspartate Aminotransferase 34 0 - 39 unit/L [facility] Alanine Aminotransferase 40 0 - 55 unit/L [facility] Alkaline Phosphatase 80 40 - 130 unit/L [facility] Bilirubin, Total 0.5 0.2 - 1.3 mg/dL [facility] Est Glomerular Filtration Rate 80 >=60 mL/min/1. 73 m?? [facility] Comment: This patient's estimated GFR was [...] and symptoms in addition to eGFR. Blood 06/08/2023 6:22 PM EDT 06/08/2023 6:51 PM EDT Narrative Resulting Agency Comment Spec In Lab Destinee Tanner Francine DANGN CHEMISTRY ORDERABL ES Performing Organization Address [facility] Co de Phone Number [facility] [address] [place] [address] * CRP, acute inflammation (06/08/2023 6:22 PM EDT) C-Reactive Protein 3.9 <=4.9 mg/L [facility] Blood 06/08/2023 6:22 PM EDT 06/08/2023 6:51 PM EDT Narrative Resulting Agency Comment Spec In Lab Destinee Tanner Francine DANGN CHEMISTRY ORDERABL ES Performing Organization Address [facility] de Phone Number [facility] [address] [place] [address] * TSH [place] (06/08/2023 6:22 PM EDT) Thyroid Stimulating Hormone 0.94 0.27 - 4.20 mcIU/mL [facility] Comment: Reference Interval (mcIU/mL): Females: ??First Trimester: 0.23-3.88 ??Second Trimester: 0.22-3.90 ??Third Trimester: 0.44-4.66 Blood 06/08/2023 6:22 PM EDT 06/08/2023 6:51 PM EDT Narrative Resulting Agency Comment Spec In Lab Destinee Tanner Francine DANGN CHEMISTRY ORDERABL ES Performing Organization Address [facility] Co de Phone Number [facility] [address] [place] [address] * POCT urine dipstick (06/08/2023) POC Sp [place] 1.005 1.002 - 1.030 POC pH, UA 5.0 5.0 - 8.5 POC Leuk, UA negative Negative - Negative POC Nitrite, UA negative Negative - Negative POC Protein, UA negative Negative - Negative mg/dL POC Glucose, UA negative Normal - Normal mg/dL POC Ketone, UA negative Negative - Negative POC Urobil, UA 0.2 0.2 - 1.0 mg/dL POC Bili, UA negative Negative - Negative POC Blood, UA negative Negative - Negative les/uL Destinee Escamilla APRN POINT OF CARE TEST ORDERABLES documented in this encounter Visit Diagnoses Diagnosis Fatigue, unspecified type Pain in right hip Pain in joint, pelvic region and thigh Numbness and tingling Disturbance of skin sensation Acute otitis externa of both ears, unspecified type Back pain, unspecified back location, unspecified back pain laterality, unspecified chronicity Pain in right hip Pain in joint, pelvic region and thigh Pain in right hip Pain in joint, pelvic region and thigh documented in this encounter Care Teams Pricer Bagger Relationship Specialty Start Date End Date Belkys Houston MD [address] [place] [id number] PCP - General Family Medicine 06/21/22 08/11/23 documented as of this encounter
--- OUTSIDE RECORDS SUMMARY | 2024-08-07 10:36 | XMS_ITS | Encounter Summary ---
Author Organization [facility] Address [facility] [place] [address] Care Team Providers Care Top Inventory Control Executive Name Role Phone Belkys Houston MD Primary Care Provider [phone] Encounter Details Date Type Department Care Team (Latest Contact Info) Description 12/17/2022 Travel Social History Tobacco Use Types Packs/Day [...] on filedocumented in this encounter Care Teams Top Inventory Control Executive Relationship Specialty Start Date End Date Belkys Houston MD [address] [place] [id number] PCP - General Family Medicine 06/21/22 08/11/23 documented as of this encounter
--- OUTSIDE RECORDS SUMMARY | 2024-08-07 10:37 | XMS_ITS | Encounter Summary ---
Author Organization [facility] Address [facility] [place] [address] Care Team Providers Care Senior Lead Java Developer Name Role Phone Belkys Houston MD Primary Care Provider [phone] Encounter Details Date Type Department Care Team (Late st Contact Info) Description 09/08/2022 Notes Only Gastroenterology and Hepatology at [address] [address] Nichole Deal Social History Tobacco Use Types Packs/Day Years Used Date Smoking Tobacco: Some Days Cigarettes Smokeless Tobacco: Never Comments:Doesn't smoke durin g the week. Alcohol Use Standard Drinks/Week Comments Yes 0 (1 standard drink = 0.6 oz pur e alcohol) maybe a beer after work Sex and Gender Information Value Date Recorded Sex Assigned at Not on file Gender Identity Not on file Sexual Orientation Not on file documented as of this encounter Progress Notes * Nichole Deal - 09/08/2022 2:47 PM EST GI BAKER OPERATOR AUTOMATIC'S NOTE Nichole Deal 09/08/22 Patient's name: Demetrio Rivers Procedure: COLO Reason: BLACK TARRY STOOLS Provider: BRENDON Date: 10/25/22 Arrival: 11:30AM Time of procedure: 12:30PM Sedation Method: MAC Prep: Instructions for DULCOLAX AND MIRALAX SPLIT-DOSED PREP delivered via MAIL 09/08/22 (prep returned, spoke with pt this is a good address-emailed to [email or web address]) advised to check junkmail 09/28/22 Nurse: Message sent to nurse re: Message to MD: Depot order: In Basket order: Verbal order: Complete recall: Assign Referral: 09/08/22 Pacemaker form to CUSTOMER FACILITIES SUPERVISOR: Abran folder: Copied to [facility] chart: 09/08/22 Comments:SLEEP APNEA documented in this encounter Plan of Treatment Not on file documented as of this encounter Visit Diagnoses Not on filedocumented in this encounter Care Teams Senior Lead Java Developer Relationship Specialty Start Date End Date Belkys Houston MD [address] [place] [id number] PCP - General Family Medicine 06/21/22 08/11/23 documented as of this encounter
--- OUTSIDE RECORDS SUMMARY | 2024-08-07 10:37 | XMS_ITS | Encounter Summary ---
Author Organization [facility] [place] [address] Care Team Providers Care Customs Director Name Role Phone None Primary Care Provider Unavailabl e Reason for Visit * Reason Onset Date Comments Other 09/15/2016 Follow Up Encounter Details Date Type Department Care Team (Late st Contact Info) Description 09/15/2016 Telephone Rheumatology at [facility] [place] [id number] Cassandra Moe RN Other (Follow Up) Social History Tobacco Use Types Packs/Day Years Used Date Smoking Tobacco: Some Days Cigarettes Smokeless Tobacco: Never Comments:.5 pack per week Alcohol Use Standard Drinks/Week Comments Yes 0 (1 standard drink = 0.6 oz pur e alcohol) maybe a beer after work Sex and Gender Information Value Date Recorded Sex Assigned at Not on file Gender Identity Not on file Sexual Orientation Not on file documented as of this encounter Miscellaneous Notes * Telephone Encounter - Cassandra Moe RN - 09/17/2016 4:17 PM EST I spoke with Demetrio today and he states he did not get message about prescriptions. 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 * Telephone Encounter - Cassandra Moe RN - 09/15/2016 11:27 AM EST ----- Message from Dana Rod MD sent at 09/15/2016 10:03 AM EST ----- Hi Mo, Can you please let him know I have called Allopurinol 100 mg daily in and Colchicine 0.6 mg daily at [facility]. He should start both simultaneously and I will see him back in f/u. Secretarieswill call him with appointment. documented in this encounter Plan of Treatment Not on file documented as of this encounter Visit Diagnoses Not on filedocumented in this encounter Care Teams Customs Director Relationship Specialty Start Date End Date None None PCP - General 08/11/10 06/20/22 documented as of this encounter
--- OUTSIDE RECORDS SUMMARY | 2024-08-07 10:37 | XMS_ITS | Encounter Summary ---
Author Organization [facility] Address [facility] [place] [address] Care Team Providers Care Bonderizer Name Role Phone Belkys Houston MD Primary Care Provider Reason for Referral * Diagnostic Test (Routine) - Closed Specialty Diagnoses / Procedures Referred By Contac t Referred To Contact Gastroenterology Diagnoses Black tarry stools Procedures PRO COLONOSCOPY, DIAGNOSTIC Jacobo Rodriguez APRN [address] [place] [address] [facility] [address] [place] [address] Referral ID Status Reason Start Date Expiration Date V isits Requested Visits Authorized [id number] Closed Test Only 07/19/2022 07/19/2023 1 1 * Diagnostic Test (STAT) - Closed Specialty Diagnoses / Procedures Referred By Contac t Referred To Contact Radiology Diagnoses Lower abdominal pain Procedures CT Abdomen & Pelvis w Contrast Jacobo Rodriguez ROUNDING AND BACKING MACHINE OPERATOR [address] [place] [address] [facility] Cat Scan [address] [place] [address] Referral ID Status Reason Start Date Expiration Date V isits Requested Visits Authorized [id number] Closed Specialty Service Requested 07/19/2022 01/17/2024 1 1 Reason for Visit * Reason Comments Abdominal Pain Bilateral lower Encounter Details Date Type Department Care Team ([facility] st Contact Info) Description 07/19/2022 11:20 AM EDT Office Visit Primary Care at [place] [address] [place] [address] Jacobo Rodriguez, ROUNDING AND BACKING MACHINE OPERATOR [address] [facility] [address] Fatigue, unspecified type; Black tarry stools; Lower abdominal pain; Bladder wall thickening Social History Tobacco Use Types Packs/Day Years [...] Sign Reading Time Taken Comments Blood Pressure 114/80 07/19/2022 11:27 AM EDT Pulse 85 07/19/2022 11:27 AM EDT Temperature - - Respiratory Rate - - Oxygen Saturation 98% 07/19/2022 11:27 AM EDT Inhaled Oxygen Concentration - - Weight 114.3 kg (252 lb) 07/19/2022 11:27 AM EDT Height - - Body Mass Index 35.15 11/05/2016 10:03 AM EST documented in this encounter Patient Instructions * Attachments The following attachments cannot be sent through Care Everywhere. * GI Bleeding: Lower (Sammarinese) * Fatigue (Sammarinese) * Abdominal Pain (Sammarinese) documented in this encounter Progress Notes * Danuta Peter - 07/19/2022 11:20 AM EDT ID: Demetrio Rivers is a 46 y.o. male Assessment/Plan: ICD-10-CM 1. Fatigue, unspecified type R53.83 CBC (with Diff) Iron and TIBC 2. Black tarry stools K92.1 CBC (with Diff) REFERRAL TO COLONOSCOPY PROCEDURE 3. Lower abdominal pain R10.30 CT Abdomen & Pelvis w Contrast Creatinine 1. Fatigue -CBC and iron to be drawn 2.Black tarry stools -Colonoscopy to be completed 3.Lower abdominal pain -CT with contrast - indicated bladder wall thickening -Stat creatinine to be drawn -bland diet for 3 days -UA to be collected Patient is aware of signs and symptoms that require follow-up care or emergency care. Patient is in agreement with today's plan. Leaves in stable condition. Will follow-up as discussed or sooner if needed. HPI: Patient presents to clinic today for abdominal pain that he reports he has had for one week. He reports that he has had this feeling of bloating and a band of lower abdominal pain with intermittent nausea from pain. Upon palpation abdomen is soft and the left lower side is more tender than the right. Patient reports that he has had decrease intake since this started and his bowel movements have become less than normal. He states his stools are soft at at times black. The pain is affecting hisday to day and he is unable to work/sleep well from the pain. He has not taken anything for the pain and reports it to be a 7/10. Upon review of CT scan it showed bladder wall thickening with possible cystitis. UA to be completed and patient will continue with a liquid diet until results. BP 114/80 Pulse 85 Wt 114.3 kg (252 lb) SpO2 98% BMI 35.15 kg/m?? ROS: Review of Systems Constitutional: Negative for chills, fever and malaise/fatigue. Respiratory: Negative for cough and shortness of breath. Cardiovascular: Negative for chest pain and palpitations. Gastrointestinal: Positive for abdominal pain, constipation and nausea. Negative for diarrhea. Genitourinary: Negative for dysuria, frequency and urgency. Neurological: Negative for speech change and loss of consciousness. Psychiatric/Behavioral: Negative for depression, memory loss and suicidal ideas. There is no problem list on file for this patient. Current Medication: ??? lisinopriL (Zestril) 20 mg Tablet ??? meloxicam (MOBIC) 15 mg Tablet ??? albuteroL 90 mcg/actuation HFA Aerosol Inhaler ??? guaiFENesin ER (Mucinex) 600 mg Tablet Extended Release 12hr ??? allopurinol (ZYLOPRIM) 100 mg Tablet ??? ibuprofen (ADVIL;MOTRIN) 800 mg Tablet Allergies Allergen Reactions ??? Bactrim [Sulfamethoxazole-Trimethoprim] Hives and Other (See Comments) Fever, sweating, shortness of breath Physical Exam: Physical Exam Vitals and nursing note reviewed. Constitutional: Appearance: He is obese. HENT: Head: Normocephalic. Mouth/Throat: Mouth: Mucous membranes are moist. Eyes: Pupils: Pupils are equal, round, and reactive to light. Cardiovascular: Rate and Rhythm: Normal rate and regular rhythm. Pulses: Normal pulses. Heart sounds: Normal heart sounds. Pulmonary: Effort: Pulmonary effort is normal. Abdominal: General: Bowel sounds are normal. There is distension. Palpations: Abdomen is soft. Tenderness: There is abdominal tenderness in the left lower quadrant. There is guarding. Hernia: A hernia is present. Hernia is present in the umbilical area. Musculoskeletal: General: Normal range of motion. Cervical back: Normal range of motion. Skin: General: Skin is warm. Capillary Refill: Capillary refill takes less than 2 seconds. Neurological: Mental Status: He is alert and oriented to person, place, and time. Psychiatric: Mood and Affect: Mood normal. Behavior: Behavior normal. * Jacobo Rodriguez APRN - 07/19/2022 11:20 AM EDT ID: Demetrio Rivers is a 46 y.o. male Assessment/Plan: ICD-10-CM 1. Fatigue, unspecified type R53.83 CBC (with Diff) Iron and TIBC 2. Black tarry stools K92.1 CBC (with Diff) REFERRAL TO COLONOSCOPY PROCEDURE 3. Lower abdominal pain R10.30 CT Abdomen & Pelvis w Contrast Creatinine Urinalysis with reflex Culture 4. Bladder wall thickening N32.89 Urinalysis with reflex Culture Bladder wall thickening-urinalysis ordered for evaluation Lower abdominal pain-CT completed and reviewed in office with patient today. - Discussed a clear liquid diet for couple days and a slow progression to solid foods. - Labs reviewed without any concerns noted. Black tarry stools- CBC was normal - Referral placed to colonoscopy for evaluation Detailed plan as noted in student note, and reiterated by preceptor.Patient is in agreement with today's plan. Signs and symptoms for the patient to seek emergency care were reviewed. I have independently performed the oquendo portions of the history and physical exam. I have personallyreviewed vital signs, and diagnostic studies including labs, imaging studies and EKG if applicable.I have discussed the details of the case with the student and agree with the assessment and plan asdescribed in the student note, unless stated otherwise in this separate note. HPI: Demetrio Rivers was seen in conjunction with our Nurse Practitioner Student. The following topics were discussed with the patient at today's visit. 46-year-old male patient reports the office today for complaints of abdominal pain. He states that has been ongoing for the past week. He states that he had to be out of work since . He reports he is having left lower quadrant abdominal discomfort. There is painful upon palpation. He deniesany fever at home. He states that he feels he has gained a couple pounds in the past week. Stat CT was completed of his abdomen pelvis that revealed bladder wall thickening but no other abnormalities. He also reports having black stools. Hemoglobin was completed and was normal. There is no elevation in white blood cell count. During this visit his vital signs are stable. Additional comments as noted in student documentation. There is no problem list on file for this patient. Current Medication: ??? lisinopriL (Zestril) 20 mg Tablet ??? meloxicam (MOBIC) 15 mg Tablet ??? albuteroL 90 mcg/actuation HFA Aerosol Inhaler ??? guaiFENesin ER (Mucinex) 600 mg Tablet Extended Release 12hr ??? allopurinol (ZYLOPRIM) 100 mg Tablet ??? ibuprofen (ADVIL;MOTRIN) 800 mg Tablet No current facility-administered medications for this visit. Physical Exam: Otherwise as noted in student note Physical Exam ROS: As noted in HPI and student documentation. BP 114/80 Pulse 85 Wt 114.3 kg (252 lb) SpO2 98% BMI 35.15 kg/m?? documented in this encounter Plan of Treatment Scheduled Referrals Name Type Priority Associated Diagnoses Order Schedule REFERRAL TO COLONOSCOPY PROCEDURE Outpatient Referral Routine Black tarry stools Ordered: 07/19/2022 documented as of this encounter Results * (ABNORMAL) Urinalysis with reflex Culture (07/19/2022 4:17 PM EDT) Glucose, Urine Dipstick Negative Negative mg/dL [facility] Protein, Urine Dipstick Negative Negative mg/dL [facility] Bilirubin, Urine Dipstick Negative Negative mg/dL [facility] Comment: Clinical correlation required for positive Urine Bilirubin results as false positive may occur with some drugs and drug related products. If a false positive is suspected a serum total bilirubin should be considered if clinically indicated. Urobilinogen, Urine Dipstick Normal Normal mg/dL [facility] pH, Urn (dipstick) 5.0 5.0 - 8.0 [facility] Blood, Urine Dipstick Negative Negative mg/dL [facility] Ketone, Urine Dipstick Negative Negative mg/dL [facility] Nitrite, Urine Dipstick Negative Negative [facility] Leukocytes, Urine Dipstick Negative Negative mcL [facility] Appearance, Urine Dipstick Clear Clear [facility] Specific [place] Urine Automated >=1.030(A) 1.005 - 1.030 [facility] Color, Urine Dipstick Yellow Yellow [facility] Reflex to Culture No [facility] Clean Catch Urine 07/19/2022 4:17 PM EDT 07/19/2022 4:17 PM EDT Narrative Resulting Agency Comment Spec In Lab Jacobo Rodriguez APRN URINE ORDERABLES [facility] [address] [place] [address] * CT Abdomen & Pelvis w Contrast (07/19/2022 2:00 PM EDT) Anatomical Region Laterality Modality Abdomen, Pelvis Computed Tomogra phy Impressions 07/19/2022 2:13 PM EDT No acute inflammatory process in the abdomen or pelvis. No free air. No bowel obstruction. No acute process Thank you for letting us participate in the care of this patient. ??If you are a health care provider and have any questions regarding this report, please contact the number below. ??For patients who have questions please contact the health child care attendant that requested your imaging first. ? Electronically signed by: NILES BARAHONA MD, [facility] ([phone]), at 07/19/2022 2:13 PM Narrative 07/19/2022 2:13 PM EDT EXAMINATION: CT ABDOMEN AND PELVIS W CONTRAST CLINICAL HISTORY: Abdominal pain, acute, nonlocalized TECHNIQUE: Helical CT of the abdomen and pelvis was performed following the intravenous administration of contrast. Administered 120.0 ml of OMNIPAQUE 350.00 mg/ml. Oral contrast was administered. COMPARISON: None FINDINGS: Lower chest: Minimal atelectasis/infiltrate in the lingula Liver: Normal size and attenuation without lesions. Bile ducts: Nondilated. Gallbladder: No calcified gallstones. Normal caliber wall. Pancreas: Normal attenuation without ductal dilatation. Spleen: Normal. Adrenals: Normal. Kidneys: Normal. Urinary Bladder: Mild bladder wall thickening clinically correlate for cystitis or outlet obstruction Vasculature: No aneurysm. Lymph Nodes: No enlarged lymph nodes. Bowel: Nondilated, no wall thickening. ?? Peritoneum and mesentery: No ascites, free air, or loculated fluid collection. No mesenteric inflammation. Abdominal wall: Fat-containing umbilical hernia Reproductive organs: Normal. Osseous structures: Sclerotic area right iliac bone likely bone island Procedure Note Niles Barahona MD - 07/19/2022 EXAMINATION: CT ABDOMEN AND PELVIS W CONTRAST CLINICAL HISTORY: Abdominal pain, acute, nonlocalized TECHNIQUE: Helical CT of the abdomen and pelvis was performed followingthe intravenous administration of contrast. Administered 120.0 ml ofOMNIPAQUE 350.00 mg/ml. Oral contrast was administered. COMPARISON: None FINDINGS: Lower chest: Minimal atelectasis/infiltrate in the lingula Liver: Normal size and attenuation without lesions. Bile ducts: Nondilated. Gallbladder: No calcified gallstones. Normal caliber wall. Pancreas: Normal attenuation without ductal dilatation. Spleen: Normal. Adrenals: Normal. Kidneys: Normal. Urinary Bladder: Mild bladder wall thickening clinically correlate forcystitis or outlet obstruction Vasculature: No aneurysm. Lymph Nodes: No enlarged lymph nodes. Bowel: Nondilated, no wall thickening. Peritoneum and mesentery: No ascites, free air, or loculated fluidcollection. No mesenteric inflammation. Abdominal wall: Fat-containing umbilical hernia Reproductive organs: Normal. Osseous structures: Sclerotic area right iliac bone likely bone island IMPRESSION No acute inflammatory process in the abdomen or pelvis. No free air. Nobowel obstruction. No acute process Thank you for letting us participate in the care of this patient. If youare a health care provider and have any questions regarding this report,please contact the number below. For patients who have questions please contactthe health child care attendant that requested your imaging first. Electronically signed by: NILES BARAHONA MD, [facility] ([phone]), at 07/19/2022 2:13 PM Jacobo Jah Jennifer ROUNDING AND BACKING MACHINE OPERATOR IMG CT ORDERABLES * Creatinine (07/19/2022 12:20 PM EDT) Creatinine 1.06 0.80 - 1.50 mg/dL [facility] Est Glomerular Filtration Rate 88 >=60 mL/min/1. 73 m?? [facility] Comment: This patient's estimated GFR [...] and symptoms in addition to eGFR. Blood 07/19/2022 12:2 0 PM EDT 07/19/2022 12:20 PM EDT Narrative Resulting Agency Comment Spec In Lab Jacobo Rodriguez ROUNDING AND BACKING MACHINE OPERATOR CHEMISTRY ORDERABLES Performing Organization Address [facility] Co de Phone Number [facility] [address] [place] [address] * Iron and TIBC (07/19/2022 12:20 PM EDT) Iron 135 45 - 160 mcg/dL [facility] TIBC 319 250 - 450 mcg/dL [facility] Iron Saturation 42 20 - 50 % [facility] Blood 07/19/2022 12:2 0 PM EDT 07/19/2022 12:20 PM EDT Narrative Resulting Agency Comment Spec In Lab Jacobo Rodriguez ROUNDING AND BACKING MACHINE OPERATOR CHEMISTRY ORDERABLES Performing Organization Address [facility] de Phone Number [facility] [address] [place] [address] documented in this encounter Visit Diagnoses Diagnosis Fatigue, unspecified type Black tarry stools Blood in stool Lower abdominal pain Abdominal pain, other specified site Bladder wall thickening Other specified disorders of bladder Lower abdominal pain Abdominal pain, other specified site documented in this encounter Care Teams Bonderizer Relationship Specialty Start Date End Date Belkys Houston MD [address] [place] [address] PCP - General Family Medicine 06/21/22 08/11/23 documented as of this encounter
--- OUTSIDE RECORDS SUMMARY | 2024-08-07 10:37 | XMS_ITS | Encounter Summary ---
Author Organization [facility] Address [facility] [place] [address] Care Team Providers Care Debubblizer Name Role Phone Belkys Houston MD Primary Care Provider [phone] Encounter Details Date Type Department Care Team (Latest Contact Info) Description 09/17/2022 Travel Social History Tobacco Use Types Packs/Day [...] on filedocumented in this encounter Care Teams Debubblizer Relationship Specialty Start Date End Date Belkys Houston MD [address] [place] [id number] PCP - General Family Medicine 06/21/22 08/11/23 documented as of this encounter
--- OUTSIDE RECORDS SUMMARY | 2024-08-07 10:37 | XMS_ITS | Encounter Summary ---
Author Organization [facility] Address [facility] [place] [address] Care Team Providers Care Gas Or Petroleum Operator Name Role Phone Belkys Houston MD Primary Care Provider [phone] Encounter Details Date Type Department Care Team (Late st Contact Info) Description 07/07/2022 Abstract Primary Care at [address] [address] Belkys Houston MD [address] [facility] [place] [address] Social History Tobacco Use Types Packs/Day Years [...] Procedure Name Priority Date/Time Associated Diagnosis Comments GLUCOSE, FASTING Routine 04/15/2022 EXTERNAL LIPID LAB RESULTS PANEL Routine 05/30/2020 EXTERNAL COLONOSCOPY RESULT Routine 05/06/2020 documented in this encounter Results * Glucose, fasting (04/15/2022) Glucose Fasting 91 Comment:PLEASE SEE SCANNED I N REPORT Blood 04/15/2022 Historical Provider CHEMISTRY ORDERAB LES * Lipid External Results (05/30/2020) Cholesterol, Total 155 Comment:PLEASE SEE SCANNED I N REPORT HDL Cholesterol 41 LDL Cholesterol 90 Triglyceride 120 05/30/2020 Historical Provider POINT OF CARE SILKE T ORDERABLES * External Colonoscopy (05/06/2020) External Colonoscopy LESS THAN 1CM POLYP IN THE ASCENDING COLON WAS REMOVED,A DIMINUITIVE POLYP IN TRANSVERSE COLON Comment:REPEAT 3 YEARS- PLEA SE SEE PATH REPORT IN CARE EVERYWHERE AND COLO REPORT IN SCANNED REPORTS Historical Provider EXTERNAL GI PROCE DURE RESULT documented in this encounter Visit Diagnoses Not on filedocumented in this encounter Care Teams Gas Or Petroleum Operator Relationship Specialty Start Date End Date Belkys Houston MD [address] [place] [id number] PCP - General Family Medicine 06/21/22 08/11/23 documented as of this encounter
--- OUTSIDE RECORDS SUMMARY | 2024-08-07 10:37 | XMS_ITS | Encounter Summary ---
Author Organization [facility] [place] [address] Care Team Providers Care Video Tape Duplicator Name Role Phone None Primary Care Provider Unavailabl e Encounter Details Date Type Department Care Team (Late st Contact Info) Description 10/22/2016 [place] [address] Cassandra Moe, RN Social History Tobacco Use Types Packs/Day [...] Telephone Encounter - Cassandra Moe RN - 10/25/2016 8:31 AM EST Phone not accepting calls. documented in this encounter Plan of Treatment Not on file documented as of this encounter Visit Diagnoses Not on filedocumented in this encounter Care Teams Video Tape Duplicator Relationship Specialty Start Date End Date None None PCP - General 08/11/10 06/20/22 documented as of this encounter
--- OUTSIDE RECORDS SUMMARY | 2024-08-07 10:37 | XMS_ITS | Encounter Summary ---
Author Organization [facility] [place] [address] Care Team Providers Care Gypsum Roofer Name Role Phone None Primary Care Provider Unavailabl e Reason for Visit * Reason Onset Date Comments Appointment 09/08/2016 Encounter Details Date Type Department Care Team (Late st Contact Info) Description 09/08/2016 [place] [phone] Tony Lees MD [facility] [place] [address] Appointment Social History Tobacco Use Types Packs/Day Years [...] encounter Miscellaneous Notes * Telephone Encounter - Hannah Kelly - 09/21/2016 2:20 PM EST No response from patient, letter sent. * Telephone Encounter - Hannah Kelly - 09/15/2016 8:43 AM EST LM #3 to call to schedule appointment outlined below * Telephone Encounter - Liane Webb - 09/10/2016 10:29 AM EST LM#2 To schedule follow up appointment in 3 months, around 12/06/16 ?? NXR BILATERAL KNEE PAIN * Telephone Encounter - Chelo Leonard - 09/08/2016 8:44 AM EST LM#1 To schedule follow up appointment in 3 months, around 12/06/16 NXR BILATERAL KNEE PAIN documented in this encounter Plan of Treatment Not on file documented as of this encounter Visit Diagnoses Not on filedocumented in this encounter Care Teams Gypsum Roofer Relationship Specialty Start Date End Date None None PCP - General 08/11/10 06/20/22 documented as of this encounter
--- OUTSIDE RECORDS SUMMARY | 2024-08-07 10:37 | XMS_ITS | Encounter Summary ---
Author Organization [facility] Address [facility] [place] [address] Care Team Providers Care Code And Test Clerk Name Role Phone Belkys Houston MD Primary Care Provider [phone] Reason for Visit * Reason Comments Cough Chest Congestion x 6 days. Nasal Congestion Encounter Details Date Type Department Care Team ([facility] Contact Info) Description 06/21/2022 1:10 PM EDT Office Visit Primary Care at [address] [phone] Destinee Escamilla, FUR DESIGNER [address] [place] [address] [phone] Chest congestion; Hypertension, unspecified type Social History Tobacco Use [...] Sign Reading Time Taken Comments Blood Pressure 160/110 06/21/2022 2:42 PM EDT Pulse 84 06/21/2022 2:42 PM EDT Temperature 36.5 ??C (97.7 ??F) 06/21/2022 2:42 PM ED T Respiratory Rate - - Oxygen Saturation 99% 06/21/2022 2:42 PM EDT Inhaled Oxygen Concentration - - Weight 111.1 kg (245 lb) 06/21/2022 2:42 PM EDT Height - - Body Mass Index 34.17 11/05/2016 10:03 AM EST documented in this encounter Progress Notes * Destinee Escamilla, FUR DESIGNER - 06/21/2022 1:10 PM EDT Subjective: Patient ID: Demetrio Rivers is a 46 y.o. male with PMH as noted below There is no problem list on file for this patient. Allergies Allergen Reactions ??? Bactrim [Sulfamethoxazole-Trimethoprim] Hives and Other (See Comments) Fever, sweating, shortness of breath He reports that he has been smoking cigarettes. He has been smoking about 0.13 packs per day. He has never used smokeless tobacco. HPI Here today for evaluation of chronic cough/chest congestion x7 days. He does report that his shortness of breath and productive cough have improved over the last 7 days. He reports that symptoms are worse in the morning but improves throughout the day. He denies any dyspnea, denies dizziness, denies chest pain or tachycardia. He is a social smoker, has not been smoking over the last few days. H ereports that he has not used any medications for the treatment of this. He has not used humidification. He reports that he primarily used rest as his treatment methodology. He has been out of work for this he has had a past COVID- 19 infection 1 month ago. He has not trialed any OTC analgesics or mucolytic's. He does not currently have insurance, he is waiting to secure this through his employmentwithin the next 1 month. Denies: cp, SOB, fever or chills, ear or throat pain, n/v/d, urinary or bowel issues, GOMEZ or dizziness, muscle or joint pain. Review Of Systems: As noted in HPI; all other review of systems are negative. Objective: Vitals: 06/21/22 1442 BP: (!) 160/110 BP Location (NBP): Left arm Patient Position: Sitting BP Cuff Sizes: Large Adult (32-43 cm) Pulse: 84 Temp: 36.5 ??C (97.7 ??F) TempSrc: Temporal SpO2: 99% Weight: 111.1 kg (245 lb) Current Outpatient Medications: ??? lisinopriL (Zestril) 20 mg Tablet, Take 20 mg by mouth daily. Indications: high blood pressure,Disp: , Rfl: ??? meloxicam (MOBIC) 15 mg Tablet, Take 15 mg by mouth daily., Disp: , Rfl: ??? allopurinol (ZYLOPRIM) 100 mg Tablet, Take 3 tablets by mouth daily. (Patient not taking: Reported on 06/21/2022), Disp: 90 tablet, Rfl: 1 ??? ibuprofen (ADVIL;MOTRIN) 800 mg Tablet, Take 1 tablet by mouth every 8 hours as needed for Pain. (Patient not taking: Reported on 06/21/2022), Disp: 30 tablet, Rfl: 12 Physical Exam Vitals reviewed. Constitutional: Appearance: Normal appearance. HENT: Head: Normocephalic. Nose: Nose normal. Eyes: Pupils: Pupils are equal, round, and reactive to light. Cardiovascular: Rate and Rhythm: Normal rate and regular rhythm. Pulses: Normal pulses. Heart sounds: Normal heart sounds. Pulmonary: Effort: Pulmonary effort is normal. Breath sounds: Wheezing present. Comments: Slight wheezing noted left lower lobe. Musculoskeletal: General: Normal range of motion. Skin: General: Skin is warm and dry. Neurological: General: No focal deficit present. Mental Status: He is alert and oriented to person, place, and time. Psychiatric: Mood and Affect: Mood normal. Behavior: Behavior normal. Thought Content: Thought content normal. Judgment: Judgment normal. Assessment and Plan: Demetrio was seen today for cough and nasal congestion. Diagnoses and all orders for this visit: Chest congestion - albuteroL 90 mcg/actuation HFA Aerosol Inhaler; Inhale 2 puffs into the lungs every 4 hours as needed for Wheezing. Use with spacer - guaiFENesin ER (Mucinex) 600 mg Tablet Extended Release 12hr; Take 2 tablets by mouth 2 times daily. Hypertension, unspecified type In terms of chest congestion, symptoms are significantly improving, no rhonchi, no hypoxia, no tachycardia there is elevation in blood pressure though patient had forgotten to take his antihypertensive today. He is currently asymptomatic regarding hypertension. There was wheezing noted on exam, we will trial albuterol inhaler, recommend use of Mucinex, regular hydration, OTC analgesics as needed for discomfort. Recommend humidification of environment. At this time we will defer chest x-ray, as patient illness is likely viral given improvement in symptoms. Patient will alert PCP if symptoms persist or worsen. ER precautions discussed. Work note completed. Supportive measures reviewed. Medication as prescribed. Follow up if worsening or failing to gradually improve as anticipated. Voices understanding and agrees. Will call with concerns. documented in this encounter Plan of Treatment Not on file documented as of this encounter Visit Diagnoses Diagnosis Chest congestion Other symptoms involving respiratory system and chest Hypertension, unspecified type documented in this encounter Care Teams Code And Test Clerk Relationship Specialty Start Date End Date Belkys Houston MD [address] [place] [id number] PCP - General Family Medicine 06/21/22 08/11/23 documented as of this encounter
--- OUTSIDE RECORDS SUMMARY | 2024-08-07 10:37 | XMS_ITS | Encounter Summary ---
Author Organization [facility] Address [facility] [place] [address] Care Team Providers Care Collections Director Name Role Phone Belkys Houston MD Primary Care Provider [phone] Encounter Details Date Type Department Care Team (Latest Contact Info) Description 07/19/2022 12:40 PM EDT Laboratory Appointment Lab at [address] [phone] Lower abdominal pain; Fatigue, unspecified type; Black tarry stools Social History Tobacco Use Types Packs/Day Years [...] Priority Date/Time Associated Diagnosis Comments HEMOGRAM Routine 07/19/2022 12:20 PM EDT Fatigue, unspecified type Black tarry stools DIFFERENTIAL, AUTOMATED Routine 07/19/2022 12:20 PM EDT Fatigue, unspecified type Black tarry stools HC CREATININE STAT 07/19/2022 12:20 PM EDT Lower abdominal pain HC IRON BINDING CAPACITY Routine 07/19/2022 12:20 PM EDT Fatigue, unspecified type HC CBC,PLT & AUTO DIFF Routine 07/19/2022 12:20 PM EDT Fatigue, unspecified type Black tarry stools documented in this encounter Results * Differential, Automated (07/19/2022 12:20 PM EDT) Neutrophil % 63.5 % [facility] Neutrophil Absolute 4.86 1.70 - 6.10 x10(3)/[facility] Lymph % 27.3 % [facility] Lymphocytes Abs 2.1 0.9 - 3.2 x10(3)/[facility] Monocyte % 6.0 % [facility] Monocyte Abs 0.5 0.3 - 0.9 x10(3)/[facility] Eos % 2.4 % [facility] Eosinophils Abs 0.2 0.0 - 0.4 x10(3)/[facility] Basophil % 0.4 % [facility] Baso Absolute 0.0 0.0 - 0.1 x10(3)/[facility] Immature Gran % 0.40 % [facility] Comment: Immature granulocytes(IG's)percentage and absolute count will include metamyelocytes, myelocytes, and promyelocytes. Blood smears from CBCs yielding IG's will be scanned manually for concordance. If this scan disagrees with the automated IG or if promyelocytes are noted, a manual differential will be performed. Immature Gran Absolute 0.03 0.00 - 0.04 x10(3)/[facility] Blood 07/19/2022 12:2 0 PM EDT 07/19/2022 12:20 PM EDT Narrative Resulting Agency Comment Spec In Lab Jacobo Rodriguez AIRLINE RESERVATIONIST HEMATOLOGY ORDERABLE S [facility] [address] [place] [address] * Hemogram (07/19/2022 12:20 PM EDT) White Blood Cell 7.6 4.0 - 9.5 x10(3)/[facility] Red Blood Cell 4.65 4.58 - 5.54 x10(6)/[facility] Hemoglobin 14.6 13.7 - 16.5 g/dL [facility] Hematocrit 42.4 40.5 - 48.5 % [facility] Mean Cell Volume 91.2 82.9 - 93.1 fL [facility] Mean Cell Hemoglobin 31.4 27.5 - 32.1 pg [facility] Mean Cell Hemoglobin Concentration 34.4 32.0 - 35.7 g/dL [facility] Platelet 298 145 - 357 x10(3)/[facility] RDW Standard Deviation 40.4 36.0 - 45.0 fL [facility] RDW coefficient of variation 12.2 11.4 - 13.8 % [facility] Mean Platelet Volume 9.3 7.6 - 12.9 fL [facility] NRBC% auto 0.0 % [facility] NRBC Absolute 0.000 0.000 - 0.000 x10(3)/[facility] Blood 07/19/2022 12:2 0 PM EDT 07/19/2022 12:20 PM EDT Narrative Resulting Agency Comment Spec In Lab Jacobo Jah Jennifer AIRLINE RESERVATIONIST HEMATOLOGY ORDERABLE S Performing Organization Address [facility] Co de Phone Number [facility] [address] [place] [address] * Iron and TIBC (07/19/2022 12:20 PM EDT) Iron 135 45 - 160 mcg/dL [facility] TIBC 319 250 - 450 mcg/dL [facility] Iron Saturation 42 20 - 50 % [facility] Blood 07/19/2022 12:2 0 PM EDT 07/19/2022 12:20 PM EDT Narrative Resulting Agency Comment Spec In Lab Jacobo Rodriguez AIRLINE RESERVATIONIST CHEMISTRY ORDERABLES Performing Organization Address City/[facility]/ZIP Co de Phone Number [facility] [address] [place] [address] * Creatinine (07/19/2022 12:20 PM EDT) Creatinine 1.06 0.80 - 1.50 mg/dL [facility] Est Glomerular Filtration Rate 88 >=60 mL/min/1. 73 m?? [facility] Comment: This patient's estimated GFR [...] Agency Comment Spec In Lab Jacobo Rodriguez AIRLINE RESERVATIONIST CHEMISTRY ORDERABLES [facility] [address] [place] [address] documented in this encounter Visit Diagnoses Diagnosis Lower abdominal pain Abdominal pain, other specified site Fatigue, unspecified type Black tarry stools Blood in stool documented in this encounter Care Teams Collections Director Relationship Specialty Start Date End Date Belkys Houston MD [address] [place] [address] PCP - General Family Medicine 06/21/22 08/11/23 documented as of this encounter
--- OUTSIDE RECORDS SUMMARY | 2024-08-07 10:37 | XMS_ITS | Encounter Summary ---
Author Organization [facility] [place] [address] Care Team Providers Care Ornamental Brick Installer Name Role Phone None Primary Care Provider Unavailabl e Reason for Referral * Consultation (Routine) - Closed Specialty Diagnoses / Procedures Referred By Contac t Referred To Contact Rheumatology Diagnoses Bilateral chronic knee pain Tnoy Lees MD [facility] [place] [address] [facility] [address] [place] [phone] Referral ID Status Reason Start Date Expiration Date V isits Requested Visits Authorized [id number] Closed Consult, Test & Treat 09/07/2016 09/07/2017 1 1 * Physical Therapy (Routine) - Closed Specialty Diagnoses / Procedures Referred By Contac t Referred To Contact Physical Therapy Diagnoses Bilateral chronic knee pain Tony Lees MD [facility] [place] [address] [facility] [address] [place] [address] Referral ID Status Reason Start Date Expiration Date V isits Requested Visits Authorized [id number] Closed Evaluate and Treat 09/07/2016 09/07/2017 1 1 Reason for Visit * Reason Comments Knee Pain bilateral knee pain, R>L * Consultation (Urgent) - Specialty Diagnoses / Procedures Referred By Contac t Referred To Contact Orthopaedics Diagnoses CHRONIC WORSENING R KNEE PAIN; EVAL FOR POSSIBLE KNEE REPLACEMENT Procedures Jermain Zurita MD [address] [place] [id number] [facility] [address] [place] [address] Referral ID Status Reason Start Date Expiration Date V isits Requested Visits Authorized [id number] Consult, Test & Treat 08/31/2016 08/31/2017 1 1 Encounter Details Date Type Department Care Team (Late st Contact Info) Description 09/07/2016 8:30 AM EST Office [place] [address] Tony Lees MD [facility] DR ORTHOPAEDIC SURGERY [place] [phone] Bilateral chronic knee pain; Chronic pain of both knees Social History Tobacco Use [...] Reading Time Taken Comments Blood Pressure 149/95 09/07/2016 8:32 AM EST Pulse 86 09/07/2016 8:32 AM EST Temperature - - Respiratory Rate - - Oxygen Saturation - - Inhaled Oxygen Concentration - - Weight 105.2 kg (232 lb) 09/07/2016 8:32 AM EST fully clothed Height 179.1 cm (5' 10.5) 09/07/2016 8:32 AM ES T in shoes Body Mass Index 32.82 09/07/2016 8:32 AM EST documented in this encounter Progress Notes * Tony Lees MD - 09/07/2016 8:30 AM EST Images from the original note were not included. Department of Orthopaedics Division of Adult Joint Reconstructive Surgery CHIEF COMPLAINT: Chief Complaint Patient presents with ??? Knee Pain bilateral knee pain, R>L ARTHROPLASTY HISTORY/PREVIOUS KNEE SURGERY: 1. Right knee arthroscopic meniscectomy 2 years ago in [place] Demetrio was referred from Jermain Chua MD [address] [place] [address] for evaluation of knee pain. I.D.: 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 year old male being seen today to discuss his bilateral knee pain. he notes the right knee is more symptomatic. His history and physical exam were reviewed in detail. He states the knee has been symptomatic for months. He initially did well following his arthroscopic procedure but over the last several months his right knee has become progressively worse as well as his left knee. The pain is predominantly medial, lateral, anterior. There was not inciting trauma/injury. He does not describe hip pain. He feels that his knee pain is keeping him from getting sleepat night and is making it difficult to get through his workday. He has had to stop exercising due to pain Aggravating factors include stair climbing, kneeling, deep knee bending, getting up from a chair, sleeping, running. Alleviating factors include rest. Demetrio has pain at night when trying to sleep. He can weight bear on both legs and does not use assistive devices. He has not tried physical therapy. Previous treatments tried: - Injections into the joint: No - NSAIDs/Pain meds: Ibuprofen, Toradol used and beneficial, but the oral ketorolac was upsetting tohis stomach. - Brace treatment: No Mr. Rivers denies fevers/chills/headache/chest pain/shortness of breath/abdominal pain/nausea or vomiting/weight changes. His 14 point review of systems is otherwise negative. He does not endorse a history of DVT/PE or clotting disorder. QUESTIONNAIRE RESPONSES: General Health, Prior Treatments, PreExisting Condition, Health Habits, About You 09/07/2016 PROMIS-10 General Health Very Good PROMIS-10 Quality of Life Fair PROMIS-10 Physical Health Good PROMIS-10 Mental Health Excellent PROMIS-10 Social Activity Excellent PROMIS-10 Everyday Activities Moderately PROMIS-10 Pain 7 PROMIS-10 Fatigue Severe PROMIS-10 Social Roles Good PROMIS-10 Anxious or Depressed Sometimes PROMIS PHYSICAL SCORE (range 16-68) 34.9 PROMIS MENTAL SCORE (range 21-68) 50.8 Treatments Tried Regular exercise, Heat and ice therapy, Brace, Walking aids (e.g.cane, walker), Acetaminophen (e.g. Tylenol), Over the counter anti- inflammatory drugs (e.g Advil, Aspirin, Aleve), Prescribed anti-inflammatory drugs, Prior surgery for this problem Prior Surgery january 2014 KOOS JR Scores 39.63 TKA Grade 3 Alzheimers or dementia No Cirrohosis or liver disease No HIV/AIDS No Pain in more than one joint in legs Yes Back or neck pain No Heart attack No Heart failure No Unclog/bypass leg arteries No Stroke, blood clot, TIA No Asthma No Emphysema, chronic bronchities, or COPD No Stomach ulcers/peptic ulcer disease No Diabetes No Poor kidney function No Rheumatic condtions No Cancer No Weight (lbs) 225 Height (feet) 5 feet Height (Inches) 11 BMI 31.37 (Obese) Ever used tobacco products Yes Tobacco frequency Weekly WHO - Tobacco Advice 4 (You are at risk of health and other problems from your current pattern of tobacco use.) Ever used alcoholic beverages Yes Alcohol frequency Once or twice WHO - Alcohol Advice 2 (You are at low risk of health and other problems from your current pattern of use.) Live Alone No Marital situation Living with significant other Schooling Some college or 2 - year degree Combined Household Income $50,000 to less than $75,000 # People Supported 1 Albanian, , No, not Albanian// Race White Health Literacy Extremely Currently working Yes Current job situation Full-time [facility] Response 09/07/2016 KOOS JR Scores 39.63 Spine [facility] Response 09/07/2016 KOOS JR Scores 39.63 ALLERGIES Allergies Allergen Reactions ??? Bactrim [Sulfamethoxazole-Trimethoprim] Hives and Other (See Comments) Fever, sweating, shortness of breath Allergies to metals: He does have skin sensitivity to nickel. SOCIAL HISTORY: reports that he has been smoking. He has been smoking about 0.50 packs per day. He has never used smokeless tobacco. He reports that he drinks alcohol. He reports that he does not useillicit drugs. 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 SIGNIFICANT MEDICAL COMORBIDITIES: There is no problem list on file for this patient. His family history is negative for rheumatoid arthritis or gout. VITALS: BP Readings from Last 1 Encounters: 09/07/16 (!) 149/95 Pulse Readings from Last 1 Encounters: 09/07/16 86 Height: 179.1 cm (5' 10.5) (in shoes) Weight - Scale: (!) 105.2 kg (232 lb) (fully clothed) Body mass index is 32.82 kg/(m^2). PHYSICAL EXAM: Constitution: Demetrio Rivers sits in the clinic today alert, appears stated age and cooperative.He is alert and oriented. I have made the following determinations: Knee Exam: Right Prior surgery on this joint: Yes Knee ROM: Extension:0 Flexion: 95 Alignment: 0-4 degrees Neutral Stability: A/P Translation <5mm. Varus (lateral stability) <5mm Valgus (medial stability) <5mm Extension La degrees or less Radiographic evidence of joint damage: [0= normal; 1=minimal ; 2= some osteophytes , some narrowing ; 3= moderate osteophytes, significantnarrowing, mild deformity; 4= large osteophytes, marked narrowing, obvious deformity]: 0= normal Patella Tracking: Normal Skin Integrity: Normal Pulses Palpable: Right PT: Yes Right DP:Yes Motor/Sensory: Distal Motor: Normal Distal Sensory: Normal Quadriceps Strength: 5 Knee Effusion: 1+, the knee is somewhat boggy and synovitic Ecchymosis: none Patella: Patellar apprehension test: positive Patellar compression test: positive Tenderness: diffuse and nonfocal. He has joint line tenderness but it is difficult to differentiatethis from the tenderness that is present throughout the knee. I have made the following determinations: Knee Exam: Left Prior surgery on this joint: No Knee ROM: Extension:0 Flexion: 95 Alignment: 0-4 degrees Neutral Stability: A/P Translation <5mm Varus (lateral stability) <5mm Valgus (medial stability) <5mm Extension La degrees or less Radiographic evidence of joint damage: [0= normal; 1=minimal ; 2= some osteophytes , some narrowing ; 3= moderate osteophytes, significantnarrowing, mild deformity; 4= large osteophytes, marked narrowing, obvious deformity]: 0= normal Patella Tracking: Normal Skin Integrity: Normal Pulses Palpable: Left PT:Yes Left DP:Yes Motor/Sensory: Distal Motor:Normal Distal Sensory: Normal Quadriceps Strength:5 Knee Effusion: 0-1+, the knee is boggy and synovitic Ecchymosis: none Patella: Patellar apprehension test: positive Patellar compression test: positive Tenderness: diffuse and nonfocal IMAGING: X-rays of the bilateral knees demonstrate well-preserved joint spaces in all 3 compartments. He hassmall osteophytes present on the patella in the right knee but no subchondral sclerosis or other signs of degenerative changes.. ASSESSMENT AND PLAN: Mr. Rivers is a 40 y.o. year old male with several months of right greater than left knee pain with x-rays negative for degenerative changes. Both knees are synovitic today and he has a history of arthroscopic procedure done on the right. I have low suspicion for infection based on his lack of risk factors as well as his otherwise good health. However his poly-joint arthritis with minimal changes noted on x-ray as well as a synovitis present in both of his knees is concerning for possible inflammatory process. He has not tried physical therapy and has not had a dedicated regimen of anti- inflammatories until he does report that the Toradol injection he had an urgent care was reviewed. I reviewed him a prescription for Mobic that he can fill it is local pharmacy. I have also given him a prescription for physical therapy that can include modalities such as tendons Z stem and iontophoresis. I would also refer him to rheumatology clinic for their opinion on whether or not he should have further workup forpotential inflammatory arthritides. I've also discussed with him that his cigarette smoking is not beneficial to his knee pain and that he should consider quitting smoking. I will see him back in 3 months after he is completed his physical therapy and seen rheumatology. Tony Lees MD documented in this encounter Plan of Treatment Scheduled Referrals Name Type Priority Associated Diagnoses Order Schedule Referral to Physical Therapy Outpatient Referral Routine Bilateral chronic knee pain Ordered: 09/07/2016 Referral to Rheumatology Outpatient Referral Routine Bilateral chronic knee pain Ordered: 09/07/2016 documented as of this encounter Visit Diagnoses Diagnosis Bilateral chronic knee pain Pain in joint, lower leg Chronic pain of both knees documented in this encounter Care Teams Ornamental Brick Installer Relationship Specialty Start Date End Date None None PCP - General 08/11/10 06/20/22 documented as of this encounter
--- OUTSIDE RECORDS SUMMARY | 2024-08-07 10:37 | XMS_ITS | Encounter Summary ---
Author Organization [facility] Address [facility] [place] [address] Care Team Providers Care Entry Level Buyer Name Role Phone Belkys Houston MD Primary Care Provider [phone] Encounter Details Date Type Department Care Team (Latest Contact Info) Description 07/19/2022 Travel Social History Tobacco Use Types Packs/Day [...] on filedocumented in this encounter Care Teams Entry Level Buyer Relationship Specialty Start Date End Date Belkys Houston MD [address] [place] [phone] PCP - General Family Medicine 06/21/22 08/11/23 documented as of this encounter
--- OUTSIDE RECORDS SUMMARY | 2024-08-07 10:37 | XMS_ITS | Encounter Summary ---
Author Organization [facility] [place] [address] Care Team Providers Care Cultural Centre Manager Name Role Phone None Primary Care Provider Unavailabl e Encounter Details Date Type Department Care Team (Late st Contact Info) Description 11/03/2016 [place] [address] Cassandra Moe, RN Social History Tobacco Use [...] Telephone Encounter - Cassandra Moe RN - 11/03/2016 1:32 PM EST Demetrio calls for appointment for Cortisone injection. RTC and he was just called for an appointment on this Tuesday. documented in this encounter Plan of Treatment Not on file documented as of this encounter Visit Diagnoses Not on filedocumented in this encounter Care Teams Cultural Centre Manager Relationship Specialty Start Date End Date None None PCP - General 08/11/10 06/20/22 documented as of this encounter
--- OUTSIDE RECORDS SUMMARY | 2024-08-07 10:37 | XMS_ITS | Encounter Summary ---
Author Organization [facility] Address [facility] [place] [address] Care Team Providers Care Residential Door Installer Name Role Phone Belkys Houston MD Primary Care Provider Reason for Visit * Reason Onset Date Comments Triage 07/15/2022 Abdominal Pain 07/15/2022 Encounter Details Date Type Department Care Team ([facility] st Contact Info) Description 07/15/2022 Telephone Primary Care at [address] [phone] Daysi Noriega, MEDIA SPECIALIST [address] [place] [address] [phone] Triage; Abdominal Pain Social History Tobacco Use Types Packs/Day [...] encounter Miscellaneous Notes * Telephone Encounter - Daysi Thomas, RN - 07/15/2022 11:50 AM EDT calls in with in the background. Demetrio is having pain right around his navel area. They believe he could have a hernia as he has a little protrusion right about his belly button. He reports he has had diverticulitis and questions if this could be the cause. He denies pain in lower abdomen and is mid abdomen around his navel. He endorses nausea no vomiting. No difficulty breathing or chest pain. he is constipated reporting that he was straining this morning but reports diarrhea a few days ago. reports his belly is firm to the touch. No discolorartion that she is aware of. No fever or chills. He is in quite a bit of pain moaning while on the phone. Explained if he is having severe pain he should go to the ER and if he has any SOB or chest pain he should also go to the ERor if he has any vomiting. Encouraged UV if not having these symptoms. That he should be seen today. No appointments available in family medicine right now. We did schedule an appointment for next week per request but reiterated recommendation is that he is seen today. documented in this encounter Plan of Treatment Not on file documented as of this encounter Visit Diagnoses Not on filedocumented in this encounter Care Teams Residential Door Installer Relationship Specialty Start Date End Date Belkys Houston MD [address] [place] [address] [place] [address] PCP - General Family Medicine 06/21/22 08/11/23 documented as of this encounter
--- OUTSIDE RECORDS SUMMARY | 2024-08-07 10:37 | XMS_ITS | Encounter Summary ---
Author Organization [facility] Address [facility] [place] [address] Care Team Providers Care Sand Car Worker Name Role Phone None Primary Care Provider Unavailabl e Encounter Details Date Type Department Care Team (Latest Contact Info) Description 09/14/2016 11:00 AM EST Office Visit Rheumatology at [facility] [place] [address] Dana Rod MD [facility] [place] [address] Chronic pain of both knees; Primary osteoarthritis involving multiple joints; Gout of multiple sites, unspecified cause, unspecified chronicity Social History Tobacco [...] Sign Reading Time Taken Comments Blood Pressure 121/77 09/14/2016 10:57 AM EST Pulse 73 09/14/2016 10:57 AM EST Temperature 36.6 ??C (97.8 ??F) 09/14/2016 10:[address] Respiratory Rate 18 09/14/2016 10:57 AM EST Oxygen Saturation 96% 09/14/2016 10:57 AM EST Inhaled Oxygen Concentration - - Weight 103.4 kg (228 lb) 09/14/2016 10:57 AM EST Height 179.1 cm (5' 10.5) 09/14/2016 10:[address] Body Mass Index 32.25 09/14/2016 10:57 AM EST documented in this encounter Progress Notes * Dana Rod - 09/14/2016 11:00 AM EST Procedure visit Seen by Dr. Ferrer as new patient last week 09/09/16. Arthrocentesis planned for today PROCEDURE NOTE: 1) RIGHT knee aspiration and injection 2) LEFT knee injection After verbal consent, and following appropriate confirmation of the correct site, the skin was cleansed using povidone-iodine swabs x3. Using a 22-gauge needle knee was entered 60 cc of clear straw color fluid aspirated from RT knee and sent for cell count, crystal exam and culture. 40mg of depomedrol and 1 ml of marcaine was injected in BILATERAL KNEES without complication. Pt had immediate improvement of his pain and tolerated the procedure well. Post injection instructions were discussed. Under polarized microscopy negatively birefringent crystals some intracellular were suggestive of uricacid observed. Plan for urate lowering treatment will be discussed after labs are reviewed today +++addendum+++ Results for DEMETRIO RIVERS ( ) as of 09/14/2016 22:31 09/14/2016 11:40 09/14/2016 11:58 Creatinine 1.22 Estimated GFR >60 Uric Acid 9.7 (H) Total Protein 7.7 Spec Type BF Synovial fluid Nucl Cell BF Ct 1134 Crystal BF moderate intracellular and extracellular crystals seen, consistent with uric acid. Called patient Will start Allopurinol 100 mg daily and colchicine 0.6 mg daily Discussed diagnosis with patient F/u in 4 weeks will be scheduled Dana Rod MD Rheumatology Fellow documented in this encounter Plan of Treatment Not on file documented as of this encounter Procedures Procedure Name Priority Date/Time Associated Diagnosis Comments CRYSTAL EXAM BODY FLUID Routine 09/14/2016 11:40 AM EST Chronic pain of both knees Primary osteoarthritis involving multiple joints BODY FLUID CULTURE, AEROBIC Routine 09/14/2016 11:40 AM EST Chronic pain of both knees Primary osteoarthritis involving multiple joints CELL COUNT BODY FLUID Routine 09/14/2016 11:40 AM EST Chronic pain of both knees Primary osteoarthritis involving multiple joints documented in this encounter Results * Body fluid culture Synovial Fluid (09/14/2016 11:40 AM EST) Body Fluid Culture No growth [facility] Gram Stain Cytocentrifuge Gram Stain performed White Blood Cells seen No microorganisms seen. [facility] Synovial fluid specimen (specimen) 09/14/2016 11:40 AM EST 09/14/2016 12:17 PM EST Comment:RT KNEE Narrative Resulting Agency Comment Spec In Lab Antonina Foreman DO MICROBIOLOGY - GEN ERAL ORDERABLES Performing Organization Address City/[facility]/ZIP Co de Phone Number [facility] [place] [address] * Crystal Exam Body Fluid (09/14/2016 11:40 AM EST) Crystal BF Type Synovial fl MA [facility] Crystal Exam, Fld See Comment [facility] Comment: _ moderate intracellular and extracellular crystals seen, consistent with uric acid. Synovial fluid specimen (specimen) 09/14/2016 11:40 AM EST 09/14/2016 1:01 PM EST Narrative Resulting Agency Comment Spec In Lab Antonina Foreman DO BODY FLUIDS AND ST OOLS ORDERABLES Performing Organization Address City/[facility]/ZIP Co de Phone Number [facility] [place] [address] * Cell Count Body Fluid (09/14/2016 11:40 AM EST) Body Fluid Source Synovial fluid [facility] Color, Fld Yellow [facility] Appearance, Fld Slightly Hazy [facility] Nucl Cell BF Ct 1,134 /mcl [facility] Comment: Guidelines listed below apply to all Body Fluids EXCEPT Bronchial Lavage Specimens (BAL specimens). Differentials on BAL specimens are performed by the Cytology laboratory section. Differential Guidelines: If Nucleated Cell Count equals zero, No Scan or Differential is performed. If Nucleated Cell Count equals 1-5, Smear is scanned but no results are reported unless abnormalities are seen. If Nucleated Cell Count equals 6 or greater, Differential is reported. Nucleated Cell Count Results are correlated with body fluid type and clinical condition. Neut Absolute BF 374 /mcl [facility] Neutrophil BF 33 % [facility] Lymphocyte BF 8 % [facility] Macrophage BF 41 % [facility] Synovial BF 18 % [facility] Comment:mitotic cells presen t Synovial fluid specimen (specimen) 09/14/2016 11:40 AM EST 09/14/2016 1:01 PM EST Narrative Resulting Agency Comment Spec In Lab Antonina Foreman DO BODY FLUIDS AND ST OOLS ORDERABLES [facility] [place] [address] documented in this encounter Visit Diagnoses Diagnosis Chronic pain of both knees Primary osteoarthritis involving multiple joints Gout of multiple sites, unspecified cause, unspecified chronicity documented in this encounter Care Teams Sand Car Worker Relationship Specialty Start Date End Date None None PCP - General 08/11/10 06/20/22 documented as of this encounter
--- OUTSIDE RECORDS SUMMARY | 2024-08-07 10:37 | XMS_ITS | Encounter Summary ---
Author Organization [facility] [place] [address] Care Team Providers Care Back Tender Fourdrinier Name Role Phone None Primary Care Provider Unavailabl e Encounter Details Date Type Department Care Team (Latest Contact Info) Description 09/14/2016 11:55 AM EST Laboratory Appointment Lab 3L [facility] [place] [id number] Chronic pain of both knees Social History [...] Priority Date/Time Associated Diagnosis Comments HEMOGRAM Routine 09/14/2016 11:58 AM EST Chronic pain of both knees DIFFERENTIAL, AUTOMATED Routine 09/14/2016 11:58 AM EST Chronic pain of both knees CBC (WITH DIFF) Routine 09/14/2016 11:58 AM EST Chronic pain of both knees CRP, CARDIAC RISK (HS CRP) Routine 09/14/2016 11:58 AM EST Chronic pain of both knees URIC ACID Routine 09/14/2016 11:58 AM EST Chronic pain of both knees COMPREHENSIVE METABOLIC PANEL Routine 09/14/2016 11:58 AM EST Chronic pain of both knees documented in this encounter Results * Differential, Automated (09/14/2016 11:58 AM EST) Neutrophil % 58.1 % [facility] Neutrophil Absolute 4.67 1.70 - 6.10 x10(3)/[facility] Lymph % 31.1 % [facility] Lymphocytes Abs 2.5 0.9 - 3.2 x10(3)/[facility] Monocyte % 5.7 % [facility] Monocyte Abs 0.5 0.3 - 0.9 x10(3)/[facility] Eos % 4.2 % [facility] Eosinophils Abs 0.3 0.0 - 0.4 x10(3)/[facility] Basophil % 0.5 % [facility] Baso Absolute 0.0 0.0 - 0.1 x10(3[place] [place] Immature Gran % 0.40 % [facility] Comment: Immature granulocytes(IG's)percentage and absolute count will include metamyelocytes, myelocytes, and promyelocytes. Blood smears from CBCs yielding IG's will be scanned manually for concordance. If this scan disagrees with the automated IG or if promyelocytes are noted, a manual differential will be performed. Immature Gran Absolute 0.03 0.00 - 0.04 x10(3[place] [place] Blood specimen (specimen) 09/14/2016 11:58 AM EST 09/14/2016 12:08 PM EST Narrative Resulting Agency Comment Spec In Lab Demetrio Ferrer MD HEMATOLOGY ORDERABLE S [facility] [place] [address] * Hemogram (09/14/2016 11:58 AM EST) White Blood Cell 8.0 4.0 - 9.5 x10(3)/[facility] Red Blood Cell 5.24 4.58 - 5.54 x10(6)/[facility] Hemoglobin 16.1 13.7 - 16.5 gm/dL [facility] Hematocrit 45.4 40.5 - 48.5 % [facility] Mean Cell Volume 86.6 82.9 - 93.1 fL [facility] Mean Cell Hemoglobin 30.7 27.5 - 32.1 pg [facility] Mean Cell Hemoglobin Concentration 35.5 32.0 - 35.7 gm/dL [facility] Platelet 349 145 - 357 x10(3)/[facility] RDW Standard Deviation 38.7 36.0 - 45.0 fL [facility] RDW coefficient of variation 12.1 11.4 - 13.8 % [facility] Mean Platelet Volume 9.5 7.6 - 12.9 [facility] NRBC% auto 0.0 % [facility] NRBC Absolute 0.000 0.000 - 0.000 x10(3)/[facility] Blood specimen (specimen) 09/14/2016 11:58 AM EST 09/14/2016 12:08 PM EST Narrative Resulting Agency Comment Spec In Lab Demetrio Ferrer MD HEMATOLOGY ORDERABLE S Performing Organization Address City/[facility]/ZIP Co de Phone Number [facility] [place] [address] * (ABNORMAL) Uric acid (09/14/2016 11:58 AM EST) Uric Acid 9.7(H) 3.5 - 8.5 mg/dL [facility] Blood specimen (specimen) 09/14/2016 11:58 AM EST 09/14/2016 12:08 PM EST Narrative Resulting Agency Comment Spec In Lab Demetrio Ferrer MD CHEMISTRY ORDERABLES [facility] [place] [address] * Comprehensive metabolic panel (non-fasting) (09/14/2016 11:58 AM EST) Glucose 113 65 - 199 mg/dL [facility] Comment:Diabetes: >=200 mg/d L plus symptoms Blood Urea Nitrogen 17 10 - 20 mg/dL [facility] Creatinine 1.22 0.80 - 1.50 mg/dL [facility] Comment: Please note that the pediatric reference intervals supplied above were not validated at [facility]. Results from pediatric patients should be interpreted in conjunction to the patient's age, height and muscle mass. Sodium 140 135 - 145 mmol/L [facility] Potassium 4.7 3.5 - 5.0 mmol/L [facility] Comment: Please note: ??Patients with WBC >100,000 may have falsely elevated Potassium levels. ??For accurate Potassium quantification in these patients send serum separator tube (gold top) for subsequent determinations. ??Contact the Clinical Chemistry Laboratory if there are any questions. Chloride 103 98 - 107 mmol/L [facility] Carbon Dioxide 24 22 - 31 mmol/L [facility] Anion Gap 13 5 - 15 mmol/L [facility] Calcium 9.6 8.5 - 10.5 mg/dL [facility] Protein, Total 7.7 6.1 - 8.0 gm/dL [facility] Albumin 4.4 3.2 - 5.2 gm/dL [facility] Aspartate Aminotransferase 29 0 - 39 unit/L [facility] Alanine Aminotransferase 36 0 - 55 unit/L [facility] Alkaline Phosphatase 59 40 - 120 unit/L [facility] Bilirubin, Total 0.4 0.2 - 1.3 mg/dL [facility] Bilirubin, Direct 0.1 0.0 - 0.3 mg/dL [facility] Est Glomerular Filtration Rate >60 >=60 [facility] Comment: This estimated GFR (eGFR) value was calculated using the MDRD equation which has been validated on patients between the ages of 18 and 70. The MDRD should not be used to assess kidney function in patients < 18 years of age or in patients with extremes of body mass, or in patients with acute kidney failure. This value should be multiplied by 1.2 for patients. For further information please copy and paste the following links into your internet browser. [email or web address] Blood specimen (specimen) 09/14/2016 11:58 AM EST 09/14/2016 12:08 PM EST Narrative Resulting Agency Comment Spec In Lab Demertio Ferrer MD CHEMISTRY ORDERABLES [facility] [place] [address] * CRP, cardiac risk (HS CRP) (09/14/2016 11:58 AM EST) C-Reactive Protein High Sensitivity 0.8 mg/L [facility] Comment: For cardiac risk assessment, two values (fasting or nonfasting sample acceptable) taken at least 2 weeks apart, should be averaged to provide a more reliable estimate of marker level. This laboratory will be using the recommendations from the AHA/CDC Scientific Statement for interpretations of future risks of cardiovascular events: ?<1.0 mg/L: low risk ?1.0 to 3.0 mg/L: moderate risk ?>3.0 mg/L: high risk ?>10.0 mg/L: Acute Inflammation Note: CRP values >10 mg/L indicate an acute inflammatory condition or infection. The >10 mg/L value should not be used for cardiac risk assessment and a repeat specimen should be collected at least two weeks after resolution of the acute inflammatory condition. References: 1. Fox KNOX et. al. ??AHA/CDC Scientific Statement: Markers of Inflammation and Cardiovascular Disease. ??Circulation 2003; 107:499-511 2. Ridker PM. ??Clinical applications of C-reactive protein for cardiovascular disease detection and prevention. ??Circulation 2003; 107:363-369 CRP Cardiac Risk Low Risk [facility] Blood specimen (specimen) 09/14/2016 11:58 AM EST 09/14/2016 12:08 PM EST Narrative Resulting Agency Comment Spec In Lab Demetrio Ferrer MD CHEMISTRY ORDERABLES Performing Organization Address City/State/[facility] Co de Phone Number [facility] [place] [address] documented in this encounter Visit Diagnoses Diagnosis Chronic pain of both knees documented in this encounter Care Teams Back Tender Fourdrinier Relationship Specialty Start Date End Date None None PCP - General 08/11/10 06/20/22 documented as of this encounter
--- OUTSIDE RECORDS SUMMARY | 2024-08-07 10:37 | XMS_ITS | Encounter Summary ---
Author Organization [facility] Address [facility] [place] [address] Care Team Providers Care Surgical Garment Inspector Name Role Phone None Primary Care Provider Unavailabl e Encounter Details Date Type Department Care Team (Late st Contact Info) Description 10/20/2016 11:00 AM EST Office Visit Rheumatology at [facility] [place] [address] Dana Rod MD [facility] [place] [address] Gout of multiple sites, unspecified cause, unspecified [...] Sign Reading Time Taken Comments Blood Pressure 140/87 10/20/2016 10:52 AM EST Pulse 102 10/20/2016 10:52 AM EST white coat syndrome Temperature 36.8 ??C (98.3 ??F) 10/20/2016 1 0:52 AM EST Respiratory Rate 18 10/20/2016 10:5 2 AM EST Oxygen Saturation 99% 10/20/2016 10: 52 AM EST Inhaled Oxygen Concentration - - Weight 99.8 kg (220 lb) 10/20/2016 10:5 2 AM EST Height 179.1 cm (5' 10.5) 10/20/2016 1 0:52 AM EST Body Mass Index 31.12 10/20/2016 10:52 AM EST documented in this encounter Patient Instructions * Patient Instructions* Dana Rod - 10/20/2016 11:00 AM EST 1. Increase Allopurinol to 200 mg daily x 1 week Then, Allopurinol 300 mg daily till follow up. 2. Resume colchicine 0.6 mg 3. Discontinue meloxicam 4. Start Ibuprofen 800 mg three times a day 5. Use Tylenol 100 mg three times a day as needed. 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 He started allopurinol but pain and swelling came back 1 weeks after cortisone injection when hestarted working. R knee is swollen and painful today and has been going on for 2 weeks. He also hasURI x 5 days. Non- productive cough, no fever or chills. He cannot miss work this week. Medications Current Outpatient Prescriptions Medication Sig Dispense Refill ??? allopurinol (ZYLOPRIM) 300 mg Tablet Take 1 tablet by mouth daily. 30 tablet 3 ??? Ibuprofen 200 mg Capsule Take by mouth as needed. Reported on 09/14/2016 No current facility-administered medications for this visit. Allergies Allergies Allergen Reactions ??? Bactrim [Sulfamethoxazole-Trimethoprim] Hives and Other (See Comments) Fever, sweating, shortness of breath PMH/ PSH/ Family Hx/Social Hx: reviewed Physical Exam: BP 140/87 Pulse 102 Comment: white coat syndrome Temp 36.8 ??C (98.3 ??F) Resp 18 Ht 179.1 cm (5' 10.5) Wt 99.8 kg (220 lb) SpO2 99% BMI 31.12 kg/m2 General: AAOx3, NAD, pleasant Skin: (-)ulcers, (-)rash Extremities Elbows:FROM, (-)pain, (-)nodules Wrists: FROM, no swelling, non-tender Hands: No synovitis, no MCP compression tenderness, full claw and fist Knees: R knee (+)effusions, warm and tender ROM Ankles: FROM, non-tender, no swelling Feet: no MTP compression tenderness Labs: 09/14/2016 11:40 09/14/2016 11:58 Creatinine ?? 1.22 Estimated GFR ?? >60 Uric Acid ?? 9.7 (H) Total Protein ?? 7.7 Spec Type BF Synovial fluid ?? Nucl Cell BF Ct 1134 ?? Crystal BF moderate intracellular and extracellular crystals seen, consistent with uric acid. ?? Studies: 09/07/16 B/L knee x-rays: IMPRESSION Bilateral osteoarthritis. Bilateral moderate joint effusions. Assessment: 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 male here for f/u of crystal proven gout. I discussed the option of injecting R knee today due to flare but declines as he cannot take even a day off work today. Offered this option if he can take a day off towards the end of the week. Plan: - labs today - Increase Allopurinol to 200 mg daily x 1 week Then, Allopurinol 300 mg daily till follow up. - Resume colchicine 0.6 mg daily - Discontinue meloxicam and start Ibuprofen 800 mg three times a day as needed - can use Tylenol 1000 mg three times a day as needed as breakthrough - letter provided to miss work today Health Care Maintenance Date Next Due Influenza vaccine Pneumonia vaccine TB Screen (PPD/QGA) DXA HCQ Eye Exam Viral Hepatitis Screen +++addendum+++ AST and indirect bilirubin elevated and normal 1 month ago. Hemolysis unlikely, ?tylenol intake or Gilbert syndrome was in a flare at the time of visit. Will have patient HOLD TYLENOL and repeat LFTsand Hep serology next visit. Unable to speak with patient. Phone not accepting calls. Dana Rod MD Rheumatology Fellow CC: None documented in this encounter Plan of Treatment Not on file documented as of this encounter Procedures Procedure Name Priority Date/Time Associated Diagnosis Comments HEMOGRAM Routine 10/20/2016 12:17 PM EST Gout of multiple sites, unspecified cause, unspecified chronicity DIFFERENTIAL, AUTOMATED Routine 10/20/2016 12:17 PM EST Gout of multiple sites, unspecified cause, unspecified chronicity CBC (WITH DIFF) Routine 10/20/2016 12:17 PM EST Gout of multiple sites, unspecified cause, unspecified chronicity URIC ACID Routine 10/20/2016 12:17 PM EST Gout of multiple sites, unspecified cause, unspecified chronicity COMPREHENSIVE METABOLIC PANEL Routine 10/20/2016 12:17 PM EST Gout of multiple sites, unspecified cause, unspecified chronicity documented in this encounter Results * Differential, Automated (10/20/2016 12:17 PM EST) Neutrophil % 59.8 % [facility] Neutrophil Absolute 4.80 1.70 - 6.10 x10(3)/[facility] Lymph % 30.0 % [facility] Lymphocytes Abs 2.4 0.9 - 3.2 x10(3)/[facility] Monocyte % 7.3 % [facility] Monocyte Abs 0.6 0.3 - 0.9 x10(3)/[facility] Eos % 2.3 % [facility] Eosinophils Abs 0.2 0.0 - 0.4 x10(3)/[facility] Basophil % 0.3 % [facility] Baso Absolute 0.0 0.0 - 0.1 x10(3)/[facility] Immature Gran % 0.30 % [facility] Comment: Immature granulocytes(IG's)percentage and absolute count will include metamyelocytes, myelocytes, and promyelocytes. Blood smears from CBCs yielding IG's will be scanned manually for concordance. If this scan disagrees with the automated IG or if promyelocytes are noted, a manual differential will be performed. Immature Gran Absolute 0.02 0.00 - 0.04 x10(3)/[facility] Blood specimen (specimen) 10/20/2016 12:17 PM EST 10/20/2016 12:35 PM EST Narrative Resulting Agency Comment Spec In Lab Carson Breen MD HEMATOLOGY ORDERABLE S [facility] [place] [address] * (ABNORMAL) Hemogram (10/20/2016 12:17 PM EST) White Blood Cell 8.0 4.0 - 9.5 x10(3)/[facility] LAB[facility] Red Blood Cell 5.09 4.58 - 5.54 x10(6)/[facility] Hemoglobin 15.6 13.7 - 16.5 gm/dL [facility] Hematocrit 43.5 40.5 - 48.5 % [facility] Mean Cell Volume 85.5 82.9 - 93.1 [facility] Mean Cell Hemoglobin 30.6 27.5 - 32.1 pg [facility] Mean Cell Hemoglobin Concentration 35.9(H) 32.0 - 35.7 gm/dL [facility] Platelet 308 145 - 357 x10(3)/[facility] RDW Standard Deviation 37.7 36.0 - 45.0 [facility] RDW coefficient of variation 12.0 11.4 - 13.8 % [facility] Mean Platelet Volume 9.7 7.6 - 12.9 [facility] NRBC% auto 0.0 % [facility] NRBC Absolute 0.000 0.000 - 0.000 x10(3)/ L [facility] Blood specimen (specimen) 10/20/2016 12:17 PM EST 10/20/2016 12:35 PM EST Narrative Resulting Agency Comment Spec In Lab Carson Breen MD HEMATOLOGY ORDERABLE S [facility] [place] [address] * (ABNORMAL) Comprehensive metabolic panel (non-fasting) (10/20/2016 12:17 PM EST) Glucose 94 65 - 199 mg/dL [facility] Comment:Diabetes: >=200 mg/d L plus symptoms Blood Urea Nitrogen 15 10 - 20 mg/dL [facility] Creatinine 1.10 0.80 - 1.50 mg/dL [facility] Comment: Please note that the pediatric reference intervals supplied above were not validated at [facility]. Results from pediatric patients should be interpreted in conjunction to the patient's age, height and muscle mass. Sodium 139 135 - 145 mmol/L [facility] Potassium 4.0 3.5 - 5.0 mmol/L [facility] Comment: Please note: ??Patients with WBC >100,000 may have falsely elevated Potassium levels. ??For accurate Potassium quantification in these patients send serum separator tube (gold top) for subsequent determinations. ??Contact the Clinical Chemistry Laboratory if there are any questions. Chloride 102 98 - 107 mmol/L [facility] Carbon Dioxide 22 22 - 31 mmol/L [facility] Anion Gap 15 5 - 15 mmol/L [facility] Calcium 9.5 8.5 - 10.5 mg/dL [facility] Protein, Total 7.9 6.1 - 8.0 gm/dL [facility] Albumin 4.9 3.2 - 5.2 gm/dL [facility] Aspartate Aminotransferase 41(H) 0 - 39 unit/L [facility] Alanine Aminotransferase 54 0 - 55 unit/L [facility] Alkaline Phosphatase 58 40 - 120 unit/L [facility] Bilirubin, Total 1.7(H) 0.2 - 1.3 mg/dL [facility] Bilirubin, Direct 0.3 0.0 - 0.3 mg/dL [facility] Est Glomerular Filtration Rate >60 >=60 [facility] Comment: This estimated GFR (eGFR) [...] the following links into your internet browser. [email or web address] Blood specimen (specimen) 10/20/2016 12:17 PM EST 10/20/2016 12:35 PM EST Narrative Resulting Agency Comment Spec In Lab Carson Breen MD CHEMISTRY ORDERABLES Performing Organization Address City/[facility]/ZIP Co de Phone Number [facility] [place] [address] * (ABNORMAL) Uric acid (10/20/2016 12:17 PM EST) Uric Acid 9.7(H) 3.5 - 8.5 mg/dL [facility] Blood specimen (specimen) 10/20/2016 12:17 PM EST 10/20/2016 12:35 PM EST Narrative Resulting Agency Comment Spec In Lab Carson Breen MD CHEMISTRY ORDERABLES [facility] [place] [address] documented in this encounter Visit Diagnoses Diagnosis Gout of multiple sites, unspecified cause, unspecified chronicity documented in this encounter Care Teams Surgical Garment Inspector Relationship Specialty Start Date End Date None None PCP - General 08/11/10 06/20/22 documented as of this encounter
--- OUTSIDE RECORDS SUMMARY | 2024-08-07 10:37 | XMS_ITS | Encounter Summary ---
Author Organization [facility] Address [facility] [place] [address] Care Team Providers Care X Ray Developing Machine Operator Name Role Phone Belkys Houston MD Primary Care Provider + [phone] Reason for Visit * Auth/Cert (Routine) Specialty [...] EGD, UPPER GI ENDOSCOPY Maite Barraza MD [address] [place] [id number] [facility] Referral ID Status Reason Start Date Expiration Date Visits Re quested Visits Authorized [id number] 1 1 Encounter Details Date Type Department Care Team (Latest Contact Info) Description 10/25/2022 11:21 AM EST - 10/25/2022 3:09 PM [facility] Hospital Encounter PACU at [address] [address] Maite Barraza MD [address] [place] [id number] Discharge Disposition: Home Social History Tobacco Use [...] Sign Reading Time Taken Comments Blood Pressure 150/98 10/25/2022 3:00 PM EST Pulse 90 10/25/2022 3:00 PM EST Temperature 36.5 ??C (97.7 ??F) 10/25/2022 2:00 PM ES T Respiratory Rate 24 10/25/2022 3:00 PM EST Oxygen Saturation 96% 10/25/2022 3:00 PM EST Inhaled Oxygen Concentration - - [...] colonoscopy for follow up diverticulitis 2020 at [facility] with 1 polyp and diverticulosis. Had abd [...] Barraza MD Gastroenterology 10/25/2022 1:12 PM Pager #[phone] documented in this encounter Plan of Treatment [...] 1:24 PM EST Upper GI Endoscopy, Diagnostic (37981) 10/25/2022 1:10 PM EST black tarry stools Colonoscopy, Diagnostic ([id number]) 10/25/2022 1:10 PM EST black tarry stools [...] PM EST 10/25/2022 1:56 PM EST Narrative [facility] - 10/25/2022 1:56 PM EST Specimen requisition ordered. ??Separate Pathology report to follow Maite Barraza MD PATHOLOGY/CYTOLOGY O RDERABLES [facility] [place] [place] [address] * Specimen to Pathology (10/25/2022 1:56 PM EST) AP Specimen 10/25/2022 1:56 PM EST 10/25/2022 1:56 PM EST Narrative [facility] - 10/25/2022 1:56 PM EST Specimen requisition ordered. ??Separate Pathology report to follow Maite Barraza MD PATHOLOGY/CYTOLOGY O KLEBER Performing Organization Address [facility] Co [place] [address] * Specimen to Pathology (10/25/2022 1:56 PM EST) AP Specimen 10/25/2022 1:56 PM EST 10/25/2022 1:56 PM EST Narrative [facility] - 10/25/2022 1:56 PM EST Specimen requisition ordered. ??Separate Pathology report to follow Maite Barraza MD PATHOLOGY/CYTOLOGY O KLEBER Performing Organization Address [facility] [place] [address] * Surgical Pathology Report (10/25/2022 1:24 PM EST) Final Diagnosis [id number] ? Location: [facility]; [facility]; A The signing pathologist has (i) examined [...] MD Verified: ??10/26/2022 13:00 ??Pathologist Performed at: ??[facility] Dept of Pathology, [address] [place] [address] Coil Assembler: Florina Gordillo MD, ??CLIA Certificate: [id number] SPECIMEN(S) SUBMITTED A - Distal esophagus bx, biopsy (Multiple) B - Cecal polyp, excision (1) C - Descending colon polyp, excision (1) D - Sigmoid colon polyps, excision (3) CLINICAL INFORMATION EGD/[place] - Black, tarry stools A - Esophagitis [...] single cassette. ??clc 10/26/2022 1:00 PM EST [facility] GI Biopsy 10/25/2022 1:24 PM EST 10/25/2022 1:24 PM EST GI Biopsy 10/25/2022 1:24 PM EST 10/25/2022 1:24 PM EST GI Biopsy 10/25/2022 1:24 PM EST 10/25/2022 1:24 PM EST GI Biopsy 10/25/2022 1:24 PM EST 10/25/2022 1:24 PM EST Maite Barraza MD PATHOLOGY/CYTOLOGY O TROYERAHENRRY [facility] [place] [address] [facility] [address] [place] [address] * Specimen to Pathology (10/25/2022 1:24 PM EST) AP Specimen 10/25/2022 1:24 PM EST 10/25/2022 1:24 PM EST Narrative [facility] - 10/25/2022 1:24 PM EST Specimen requisition ordered. ??Separate Pathology report to follow Maite Barraza MD PATHOLOGY/CYTOLOGY O KLEBER [facility] [place] [address] * Patient Instructions (10/25/2022 12:34 PM EST) [...] procedure please call Maite Barraza MD at #[phone] After 5pm Tuesday-Tuesday and on weekends or holidays please call [phone] and the hospital conveyor system operator can page the components engineer ?gastroenterolo gist to return your call. Maite Barraza MD ___ Maite Barraza MD 10/25/2022 1:27:30 PM This report has been signed electronically. PROVATION 10/25/2022 12:3 4 PM EST Maite Barraza MD INFORMATIONAL ONL Y PROVATION * UPPER GI ENDOSCOPY (10/25/2022 12:34 PM EST) UPPER GI ENDOSCOPY ___ Patient Name: Demetrio Rivers Procedure Date: 10/25/2022 12:34 PM ?Attending MD: Maite Barraza MD Date of : 1975 ? Order #: [id number] Age: 46 ?Instrument Name: [id number] ___ Procedure: ? Upper GI endoscopy Indications: ? Melena Providers: ? Maite Barraza MD, Shakila ? Chidi, TETE, Laurie Farmer MD: ?Belkys Rosemarie Medicines: ? Monitored Anesthesia [...] nurse, the ? anesthesiologist and the ? validation technician. The procedure was ? verified in [...] Procedure Code(s): ? --- Professional --- ? 64594, Esophagogastroduode noscopy, ? flexible, transoral; with biopsy, [...] K92.1, Melena (includes ? Hematochezia) CPT copyright 202 [employer]. All rights reserved. The codes documented in this report are preliminary and upon wool broker review may be revised to meet current compliance requirements. Maiet Barraza MD Maite Barraza MD 10/25/2022 1:27:30 [...] procedure please call Maite Barraza MD at #[phone] After 5pm Tuesday-Tuesday and on weekends or holidays please call [phone] and the hospital conveyor system operator can page the components engineer ?gastroenterolo gist to return your call. Maite [...] Date of : 1975 ? Order #: [id number] Age: 46 ?Instrument Name: [id number] ___ Procedure: ? Colonoscopy Indications: ? Screening for colorectal malignant ? neoplasm, Screening in patient at ? increased risk: Colorectal cancer ? in mother before age 60 Providers: ? Maite Barraza MD, Shakila ? Chidi, RN, Laurie Farmer MD: ?Belkys Houston Medicines: ? [...] nurse, the ? anesthesiologist and the ? validation technician. The procedure was ? verified in [...] Procedure Code(s): ? --- Professional --- ? 70727, Colonoscopy, flexible; with ? removal of tumor(s), [...] ? abscess without bleeding CPT copyright 2020 [employer]. All rights reserved. The codes documented in this report are preliminary and upon wool broker review may be revised to meet current [...] (Due) documented in this encounter Care Teams X Ray Developing Machine Operator Relationship Specialty Start Date End Date Belkys Houston MD [address] [place] [phone] PCP - General Family Medicine 06/21/22 08/11/23 documented as of this encounter
--- OUTSIDE RECORDS SUMMARY | 2024-08-07 10:37 | XMS_ITS | Encounter Summary ---
Author Organization [facility] Address [facility] [place] [address] Care Team Providers Care Police Service Technician Name Role Phone None Primary Care Provider Unavailabl e Encounter Details Date Type Department Care Team (Latest Contact Info) Description 11/05/2016 10:00 AM EST Office Visit Rheumatology at [facility] [place] [address] Dana Rod MD [facility] [place] [address] Gout of multiple sites, unspecified cause, unspecified chronicity; Primary osteoarthritis involving multiple joints; Elevated LFTs; Swelling of knee joint, right Social History Tobacco Use Types Packs/Day [...] Sign Reading Time Taken Comments Blood Pressure 150/87 11/05/2016 10:03 AM EST Pulse 84 11/05/2016 10:03 AM EST Temperature 36.5 ??C (97.7 ??F) 11/05/2016 10:[address] Respiratory Rate - - Oxygen Saturation 97% 11/05/2016 10:03 AM EST Inhaled Oxygen Concentration - - Weight 103.9 kg (229 lb) 11/05/2016 10:03 AM EST Height 180.3 cm (5' 11) 11/05/2016 10:03 AM EST Body Mass Index 31.94 11/05/2016 10:03 AM EST documented in this encounter Patient Instructions * Patient Instructions* Dana Rod - 11/05/2016 10:00 AM EST Gout - continue allopurinol 300 mg daily - colchine 0.6 mg daily DURING FLARE - COLCHICINE 1.8 MG (THREE PILLS) in the first 24 hrs 0.6 THREE TIMES A DAY - then, COLCHICINE 06 MG TWICE A DAY till flare subsides (~1 weeks) - then, back to COLCHICINE 0.6 MG DAILY OA - Ibuprofen 800 mg three times a day ONLY - limit Tylenol intake documented in this encounter Progress Notes * Dana Rod - 11/05/2016 10:00 AM EST Rheumatology Outpatient Follow-up Note Rheumatologic History Crystal proven gout 08/2016 OA B/L knees - 10 yr h/o knee pain, 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 Patient reports R knee started swelling 1 week ago, knee was warm and could not work. 3 days ago L knee also got painful but didnot swell. Also reports popping in both knees at work. He increased allopurinol 200 mg x 1 week and then 300 mg since 10/01/16. However ran out of colchicine which he has ordered from [facility]. Is taking Ibuprofen 800 mg 4-5 times a day. Tylenol 400 mg daily. He requests cortisone injection in R knee today. Drinks 2 beers/day Medications Current Outpatient Prescriptions Medication Sig Dispense Refill ??? allopurinol (ZYLOPRIM) 100 mg Tablet Take 3 tablets by mouth daily. 90 tablet 1 ??? ibuprofen (ADVIL;MOTRIN) 800 mg Tablet Take 1 tablet by mouth every 8 hours as needed for Pain.30 tablet 12 No current facility-administered medications for this visit. Allergies Allergies Allergen Reactions ??? Bactrim [Sulfamethoxazole-Trimethoprim] Hives and Other (See Comments) Fever, sweating, shortness of breath PMH/ PSH/ Family Hx/Social Hx: reviewed Physical Exam: BP 150/87 Pulse 84 Temp 36.5 ??C (97.7 ??F) Ht 180.3 cm (5' 11) Wt (!) 103.9 kg (229 lb) SpO2 97% BMI 31.94 kg/m2 General: AAOx3, NAD, pleasant Skin: (-)ulcers, (-)rash Extremities Elbows:FROM, (-)pain, (-)nodules Wrists: FROM, no swelling, non-tender Hands: No synovitis, no MCP compression tenderness, full claw and fist Knees: R knee (+)effusions, warm and tender ROM, L knee (+) effusion, cool and non-tender Ankles: FROM, non-tender, no swelling Feet: no [...] IMPRESSION Bilateral osteoarthritis. Bilateral moderate joint effusions. 11/05/16 PROCEDURE NOTE: R knee injection After verbal consent, and following appropriate confirmation of the correct site, the skin was cleansed using povidone-iodine swabs x3. Using a 27-gauge needle knee was entered and 40mg of Triamcinolone and 2 ml of marcaine was injected without complication. Pt had immediate improvement of his painand tolerated the procedure well. Post injection instructions were discussed. Advised to avoid excessive weightbearing today. Assessment: 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 male here for f/u of crystal proven gout. He may have flared since he increased allopurinol and ran out of colchicine. It is one week out from his flare and feel the pain and swelling will resolve in R knee but he insistes on an injection today as his is not able to carry out any activities. I discussed the options of managing future flares with colchicine. Plan: #gout - s/p injection of R knee with triamcinolone - check uric acid today - continue allopurinol 300 mg daily - colchine 0.6 mg daily. Expects to get prescription today/tomorrow - advised to limit Ibuprofen intake to Ibuprofen 800 mg three times a day ONLY (currently take 800 mg x 4-5 times/day) - advised to limit Tylenol intake ~3g/day - discussed lifestyle modifications and effect of diet and alcohol on uric acid and gout flares #gout plan for flare: - COLCHICINE 1.8 MG (THREE PILLS) in the first 24 hrs 0.6 THREE TIMES A DAY - then, COLCHICINE 0.6 MG TWICE A DAY till flare subsides (~1 weeks) - then, back to COLCHICINE 0.6 MG DAILY #elevated LFT: AST and indirect bilirubin elevated and normal 1 month ago. Hemolysis unlikely, ?tylenol intake or Gilbert syndrome was in a flare at the time of visit. - repeat labs today Health Care Maintenance Date Next Due Influenza vaccine Pneumonia vaccine TB Screen (PPD/QGA) DXA HCQ Eye Exam Viral Hepatitis Screen Dana Rod MD CC: None * Shola Ramirez MD - 11/05/2016 10:00 AM EST RHEUMATOLOGY ATTENDING NOTE: I reviewed Rheumatology Fellow Dr. Dana Rod's clinic note without participating in the clinicalcare of this pt. Shola Ramirez MD PhD documented in this encounter Plan of Treatment Not on file documented as of this encounter Procedures Procedure Name Priority Date/Time Associated Diagnosis Comments HEPATITIS C ANTIBODY Routine 11/05/2016 11:16 AM EST Elevated LFTs HEPATITIS B CORE ANTIBODY, TOTAL Routine 11/05/2016 11:16 AM EST Elevated LFTs HEPATITIS B SURFACE ANTIBODY Routine 11/05/2016 11:16 AM EST Elevated LFTs HEPATITIS B SURFACE ANTIGEN Routine 11/05/2016 11:16 AM EST Elevated LFTs URIC ACID Routine 11/05/2016 11:16 AM EST Gout of multiple sites, unspecified cause, unspecified chronicity COMPREHENSIVE METABOLIC PANEL Routine 11/05/2016 11:16 AM EST Elevated LFTs documented in this encounter Results * (ABNORMAL) Comprehensive metabolic panel (non-fasting) (11/05/2016 11:16 AM EST) [facility] Glucose 96 65 - 199 mg/dL [facility] Comment:Diabetes: >=200 mg/d L plus symptoms Blood Urea Nitrogen 19 10 - 20 mg/dL [facility] Creatinine 1.09 0.80 - 1.50 mg/dL [facility] Comment: Please note that the pediatric reference intervals supplied above were not validated at [facility]. Results from pediatric patients should be interpreted in conjunction to the patient's age, height and muscle mass. Sodium 141 135 - 145 mmol/L [facility] Potassium 4.2 3.5 - 5.0 mmol/L [facility] Comment: Please note: ??Patients with WBC >100,000 may have falsely elevated Potassium levels. ??For accurate Potassium quantification in these patients send serum separator tube (gold top) for subsequent determinations. ??Contact the Clinical Chemistry Laboratory if there are any questions. Chloride 103 98 - 107 mmol/L [facility] Carbon Dioxide 22 22 - 31 mmol/L [facility] Anion Gap 16(H) 5 - 15 mmol/L [facility] Calcium 9.2 8.5 - 10.5 mg/dL [facility] Protein, Total 7.4 6.1 - 8.0 gm/dL [facility] Albumin 4.7 3.2 - 5.2 gm/dL [facility] Aspartate Aminotransferase 22 0 - 39 unit/L [facility] Alanine Aminotransferase 32 0 - 55 unit/L [facility] Alkaline Phosphatase 63 40 - 120 unit/L [facility] Bilirubin, Total 0.6 0.2 - 1.3 mg/dL [facility] Bilirubin, Direct 0.2 0.0 - 0.3 mg/dL [facility] Est Glomerular Filtration Rate >60 >=60 [facility] Comment: This estimated GFR (eGFR) [...] the following links into your internet browser. [email or web address] Blood specimen (specimen) 11/05/2016 11:16 AM EST 11/05/2016 11:31 AM EST Narrative Resulting Agency Comment Spec In Lab Shola Ramirez MD CHEMISTRY ORDERABLES Performing Organization Address [facility] Co de Phone Number [facility] [place] [address] * Hepatitis C Antibody (11/05/2016 11:16 AM EST) Pathologist [facility] Hepatitis C Antibody Negative Negative [facility] Blood specimen (specimen) 11/05/2016 11:16 AM EST 11/05/2016 11:31 AM EST Narrative Resulting Agency Comment Spec In Lab Shola Ramirez MD CHEMISTRY ORDERABLES Performing Organization Address [facility] Co de Phone Number [facility] [place] [address] * Hepatitis B Surface Antibody (11/05/2016 11:16 AM EST) Pathologist [facility] Hepatitis B Surface Antibody, Quantitative 10.9 IU/L [facility] Comment: rechecked-ds HepB Surface Ab Quant: Unvaccinated: < 8.5 IU/L Vaccinated: > 11.5 IU/L Hepatitis B Surface Antibody Indeterminate [facility] Comment: Unable to determine if the antibody is present at concentrations consistent with immunity to HBV infection. Expected Results: Vaccinated: Positive Unvaccinated: Negative Blood specimen (specimen) 11/05/2016 11:16 AM EST 11/05/2016 11:31 AM EST Narrative Resulting Agency Comment Spec In Lab Shola Ramirez MD CHEMISTRY ORDERABLES Performing Organization Address [facility] Co de Phone Number [facility] [address] * Hepatitis B Surface Antigen (11/05/2016 11:16 AM EST) Hepatitis B Surface Antigen Negative Negative [facility] Blood specimen (specimen) 11/05/2016 11:16 AM EST 11/05/2016 11:31 AM EST Narrative Resulting Agency Comment Spec In Lab Shola Ramirez MD CHEMISTRY ORDERABLES Performing Organization Address [facility] Co de Phone Number [facility] [address] * Hepatitis B Core Antibody, Total (11/05/2016 11:16 AM EST) Hepatitis B Core Antibody Negative Negative [facility] Blood specimen (specimen) 11/05/2016 11:16 AM EST 11/05/2016 11:31 AM EST Narrative Resulting Agency Comment Spec In Lab Shola Ramirez MD CHEMISTRY ORDERABLES Performing Organization Address [facility] Co de Phone Number [facility] [address] * Uric acid (11/05/2016 11:16 AM EST) Uric Acid 6.6 3.5 - 8.5 mg/dL [facility] Blood specimen (specimen) 11/05/2016 11:16 AM EST 11/05/2016 11:31 AM EST Narrative Resulting Agency Comment Spec In Lab Shola Ramirez MD CHEMISTRY ORDERABLES [facility] [place] [address] documented in this encounter Visit Diagnoses Diagnosis Gout of multiple sites, unspecified cause, unspecified chronicity Primary osteoarthritis involving multiple joints Elevated LFTs Other abnormal blood chemistry Swelling of knee joint, right Effusion of lower leg joint documented in this encounter Care Teams Police Service Technician Relationship Specialty Start Date End Date None None PCP - General 08/11/10 06/20/22 documented as of this encounter
--- OUTSIDE RECORDS SUMMARY | 2024-08-07 10:37 | XMS_ITS | Encounter Summary ---
Author Organization [facility] Address [facility] [place] [address] Care Team Providers Care Auto Body Repairer Name Role Phone Belkys Houston MD Primary Care Provider Reason for Referral * Diagnostic Test (STAT) - Closed Specialty Diagnoses / Procedures Referred By Contac t Referred To Contact Radiology Diagnoses Lower abdominal pain Procedures CT Abdomen & Pelvis w Contrast Jacobo Rodriguez APRN [address] [place] [address] [facility] Rad Cat Scan [address] [place] [address] Referral ID Status Reason Start Date Expiration Date V isits Requested Visits Authorized [id number] Closed Specialty Service Requested 07/19/2022 01/17/2024 1 1 Reason for Visit * Diagnostic Test (STAT) - Closed Specialty Diagnoses / Procedures Referred By Contac t Referred To Contact Radiology Diagnoses Lower abdominal pain Procedures CT Abdomen & Pelvis w Contrast Jacobo Rodriguez APRN [address] [place] [address] [facility] Rad Cat Scan [address] [place] [address] Referral ID Status Reason Start Date Expiration Date V isits Requested Visits Authorized [id number] Closed Specialty Service Requested 07/19/2022 01/17/2024 1 1 Encounter Details Date Type Department Care Team (Latest Contact Info) Description 07/19/2022 12:10 PM EDT - 07/19/2022 11:59 PM EDT Hospital Encounter CAT Scan at [facility] [address] [facility] [place] [address] Jacobo Rodriguez, DIAMOND [address] [facility] [place] [address] Lower abdominal pain Discharge Disposition: Home Social History Tobacco [...] Sig Dispensed Refills Start Date End Date lisinopriL (Zestril) 20 mg TabletIndications:hyper tension Take 20 mg by mouth daily. Indications: high blood pressure 09/17/2022 meloxicam (MOBIC) 15 mg Tablet Take 15 mg by mouth daily. 09/17/2022 albuteroL 90 mcg/actuation HFA Aerosol InhalerIndications:Ches t congestion Inhale 2 puffs into the lungs every 4 hours as needed for Wheezing. Use with spacer 1 each 1 06/21/2022 09/17/2022 guaiFENesin ER (Mucinex) 600 mg Tablet Extended Release 12hrIndications:Chest congestion Take 2 tablets by mouth 2 times daily. 14 tablet 06/21/2022 09/17/2022 allopurinol (ZYLOPRIM) 100 mg TabletIndications:Gout of multiple sites, unspecified cause, unspecified chronicity Take 3 tablets by mouth daily. 90 tablet 1 10/20/2016 09/17/2022 ibuprofen (ADVIL;MOTRIN) 800 mg TabletIndications:Gout of multiple sites, unspecified cause, unspecified chronicity Take 1 tablet by mouth every 8 hours as needed for Pain. 30 tablet 12 10/20/2016 09/17/2022 documented as of this encounter Plan of Treatment Not on file documented as of this encounter Procedures Procedure Name Priority Date/Time Associated Diagnosis Comments CT ABDOMEN AND PELVIS W CONTRAST STAT 07/19/2022 2:00 PM EDT Lower abdominal pain documented in this encounter Results * CT [...] who have questions please contact the health patient care nursing assistant that requested your imaging first. ? Electronically signed by: NILES BARAHONA MD, [facility] ([phone]), at 07/19/2022 2:13 PM Narrative 07/19/2022 2:13 [...] bone likely bone island Procedure Note Niles Barahnoa MD - 07/19/2022 EXAMINATION: CT ABDOMEN AND [...] patients who have questions please contactthe health patient care nursing assistant that requested your imaging first. Electronically signed by: NILES BARAHONA MD, [facility] ([phone]), at 07/19/2022 2:13 PM Jacobo Rodriguez EXTERMINATOR HELPER IMG CT ORDERABLES documented in this encounter Visit Diagnoses Diagnosis Lower abdominal pain Abdominal pain, other specified site documented in this encounter Administered Medications Inactive Administered Medications - up to 3 most recent administrations Medication Order MAR Action Action Date Dose Rate Site barium sulfate (Readi-Cat) 2.0 % (w/v) oral liquid 450-900 mL 450-900 mL, Oral, ONCE PRN, 1 dose, Starting on Tue07/19/22 at 1400, Until Tue07/19/22 at 1230, Per Protocol, Radiology Contrast, Routine Given 07/19/2022 12:30 PM EDT 450 mLs iohexoL (Omnipaque) (350 mg/mL) solution 0-200 mL 0-200 mL, Intravenous, ONCE PRN, 1 dose, Starting on Tue07/19/22 at 1400, Until Tue07/19/22 at 1353, Per Protocol, Warning Vesicant/Irritant Medication , Radiology Contrast, Routine Given 07/19/2022 1:53 PM EDT 120 mLs documented in this encounter Care Teams Auto Body Repairer Relationship Specialty Start Date End Date Belkys Houston MD [address] [place] [id number] PCP - General Family Medicine 06/21/22 08/11/23 documented as of this encounter
--- OUTSIDE RECORDS SUMMARY | 2024-08-07 10:37 | XMS_ITS | Encounter Summary ---
Author Organization [facility] Address [facility] [place] [address] Care Team Providers Care Weighmaster Lead Name Role Phone Belkys Houston MD Primary Care Provider + [phone] Reason for Visit * Reason Onset Date Comments Establish Care 07/06/2022 Encounter Details Date Type Department Care Team (Late st Contact Info) Description 07/06/2022 Telephone Primary Care at [address] [address] Pema Mcrae Establish Care Social History Tobacco Use Types Packs/Day Years [...] encounter Miscellaneous Notes * Telephone Encounter - Pema Mcrae - 07/07/2022 11:15 AM EDT HM Updated with what was received HM Gaps Due: Covid Pneumo HIV TDAP/TD Flu * Telephone Encounter - Michael Salguero - 07/06/2022 4:47 PM EDT Pt called - sched NPV on 09/06 w/Rosemarie - new insurance starts on July 20 - wanted specific time and only w/pcp * Telephone Encounter - Tiffany Pineda - 07/06/2022 4:09 PM EDT LMTCB and schedule NPV 07/06/22 * Telephone Encounter - Pema Mcrae - 07/06/2022 11:53 AM EDT Medical Records Received - Please Schedule NPV Some in CE documented in this encounter Plan of Treatment Not on file documented as of this encounter Visit Diagnoses Not on filedocumented in this encounter Care Teams Weighmaster Lead Relationship Specialty Start Date End Date Belkys Houston MD [address] [place] [id number] PCP - General Family Medicine 06/21/22 08/11/23 documented as of this encounter
--- OUTSIDE RECORDS SUMMARY | 2024-08-07 10:37 | XMS_ITS | Encounter Summary ---
Author Organization [facility] Address [facility] [place] [address] Care Team Providers Care Ultrasound Technologist Name Role Phone None Primary Care Provider Unavailabl e Encounter Details Date Type Department Care Team (Late st Contact Info) Description 09/07/2016 7:24 AM EST - 09/07/2016 11:59 PM [facility] Hospital Encounter XRay at [address] [place] [address] Tony Lees MD [facility] [place] [address] Bilateral chronic knee pain Discharge Disposition: Home Social History Tobacco [...] Sig Dispensed Refills Start Date End Date meloxicam (MOBIC) 7.5 mg TabletIndications:Bilat eral chronic knee pain Take 1 tablet by mouth daily for 30 days. 30 tablet 3 09/07/2016 10/07/2016 aspirin 325 mg Tablet Take 325 mg by mouth daily. Reported on 09/14/2016 09/14/2016 Ibuprofen 200 mg Capsule Take by mouth as needed. Reported on 09/14/2016 10/20/2016 documented as of this encounter Plan of Treatment Not on file documented as of this encounter Procedures Procedure Name Priority Date/Time Associated Diagnosis Comments XR KNEE 4 OR MORE VIEWS BILAT Routine 09/07/2016 7:41 AM EST Bilateral chronic knee pain documented in this encounter Results * XR Knee 4 or more views Bilat (09/07/2016 7:41 AM EST) Anatomical Region Laterality Modality Knee Bilateral Digital Radiogra phy Impressions 09/07/2016 9:36 AM EST Bilateral osteoarthritis. Bilateral moderate joint effusions. Narrative 09/07/2016 9:36 AM EST EXAMINATION: XR KNEE 4 OR MORE VIEWS BILAT CLINICAL HISTORY: bilateral knee pain TECHNIQUE: Bilateral AP, PA Lantigua, skyline, lateral bilateral knees COMPARISON: None FINDINGS: No fracture or dislocation. Mild to moderate degenerative changes are noted bilaterally characterized by narrowing of the medial and patellofemoral joint spaces, tibial spine osteophytes, marginal osteophytes and mild subchondral sclerosis. Moderate joint effusions are noted bilaterally. Procedure Note Charlene Hernadez MD - 09/07/2016 EXAMINATION: XR KNEE 4 OR MORE VIEWS BILAT CLINICAL HISTORY: bilateral knee pain TECHNIQUE: Bilateral AP, PA Lantigua, skyline, lateral bilateral knees COMPARISON: None FINDINGS: No fracture or dislocation. Mild to moderate degenerative changes arenoted bilaterally characterized by narrowing of the medial and patellofemoraljoint spaces, tibial spine osteophytes, marginal osteophytes and mildsubchondral sclerosis. Moderate joint effusions are noted bilaterally. IMPRESSION Bilateral osteoarthritis. Bilateral moderate joint effusions. Tony Lees MD IMG DX ORDERABLES documented in this encounter Visit Diagnoses Diagnosis Bilateral chronic knee pain Pain in joint, lower leg documented in this encounter Care Teams Ultrasound Technologist Relationship Specialty Start Date End Date None None PCP - General 08/11/10 06/20/22 documented as of this encounter
--- OUTSIDE RECORDS SUMMARY | 2024-08-07 10:37 | XMS_ITS | Encounter Summary ---
Author Organization [facility] Address [facility] [place] [address] Care Team Providers Care Rouge Sifter Name Role Phone Belkys Houston MD Primary Care Provider [phone] Encounter Details Date Type Department Care Team (Latest Contact Info) Description 07/19/2022 3:40 PM EDT Laboratory Appointment Lab at [address] [address] Lower abdominal pain; Bladder wall thickening Social [...] Procedure Name Priority Date/Time Associated Diagnosis Comments URINALYSIS WITH REFLEX CULTURE Routine 07/19/2022 4:17 PM EDT Lower abdominal pain Bladder wall thickening documented in this encounter Results * (ABNORMAL) Urinalysis with reflex Culture (07/19/2022 4:17 PM EDT) Glucose, Urine Dipstick Negative Negative mg/dL [facility] Protein, Urine Dipstick Negative Negative mg/dL [facility] Bilirubin, Urine Dipstick Negative Negative mg/dL [facility] Comment: Clinical correlation required for positive Urine Bilirubin results as false positive may occur with some drugs and drug related products. If a false positive is suspected a serum total bilirubin should be considered if clinically indicated. Urobilinogen, Urine Dipstick Normal Normal mg/dL [facility] pH, Urn (dipstick) 5.0 5.0 - 8.0 [facility] Blood, Urine Dipstick Negative Negative mg/dL [facility] Ketone, Urine Dipstick Negative Negative mg/dL [facility] Nitrite, Urine Dipstick Negative Negative [facility] Leukocytes, Urine Dipstick Negative Negative mcL [facility] Appearance, Urine Dipstick Clear Clear [facility] Specific [place] Urine Automated >=1.030(A) 1.005 - 1.030 [facility] Color, Urine Dipstick Yellow Yellow [facility] Reflex to Culture No [facility] Clean Catch Urine 07/19/2022 4:17 PM EDT 07/19/2022 4:17 PM EDT Narrative Resulting Agency Comment Spec In Lab Jacobo Rodriguez VEHICLE SALES PROFESSIONAL URINE ORDERABLES [facility] [address] [place] [address] documented in this encounter Visit Diagnoses Diagnosis Lower abdominal pain Abdominal pain, other specified site Bladder wall thickening Other specified disorders of bladder documented in this encounter Care Teams Rouge Sifter Relationship Specialty Start Date End Date Belkys Houston MD [address] [place] [address] PCP - General Family Medicine 06/21/22 08/11/23 documented as of this encounter
--- OUTSIDE RECORDS SUMMARY | 2024-08-07 10:37 | XMS_ITS | Encounter Summary ---
Author Organization [facility] Address [facility] [place] [address] Care Team Providers Care Healthcare Economics Manager Name Role Phone Belkys Houston MD Primary Care Provider [phone] Reason for Visit * Reason Comments Establish Care Encounter Details Date Type Department Care Team (Latest Contact Info) Description 09/17/2022 3:30 PM EST Office Visit Primary Care at [address] [phone] Enma Ngo, MANAGER PLANNING [address] [place] [address] [phone] Annual physical exam; Primary hypertension; Primary osteoarthritis of right knee Social History [...] Sign Reading Time Taken Comments Blood Pressure 154/98 09/17/2022 4:11 PM EST Pulse 97 09/17/2022 3:31 PM EST Temperature - - Respiratory Rate - - Oxygen Saturation 97% 09/17/2022 3:31 PM EST Inhaled Oxygen Concentration - - Weight 113.4 kg (250 lb) 09/17/2022 3:31 PM EST Height 178.3 cm (5' 10.2) 09/17/2022 3:31 PM ES T Body Mass Index 35.67 09/17/2022 3:31 PM EST documented in this encounter Progress Notes * Enma Ngo, MANAGER PLANNING - 09/17/2022 3:30 PM EST Assessment/Plan: 1. Annual physical exam Annual physical with abnormal findings below. Physical form filled out for his job today. He declined vaccines today. He will follow up in 1 year for annual physical. 2. Primary hypertension BP elevated today but he ran out of his prescription. Refill placed today and he will monitor BP over the next 2 weeks and follow up. Goal BP <130/80. - lisinopriL (Zestril) 40 mg Tablet; Take 1 tablet by mouth daily. Dispense: 90 tablet; Refill: 3 3. Primary osteoarthritis of right knee Doing well on medication, taking as prescribed and denies any side effects. No changes to treatment, refill placed today. - meloxicam (MOBIC) 15 mg Tablet; Take 1 tablet by mouth daily. Dispense: 30 tablet; Refill: 5 - lidocaine (Lidoderm) 5% Adhesive Patch, Medicated; Place 1 patch onto affected area for 12 hours then remove for 12 hours Dispense: 30 patch; Refill: 0 ID: Demetrio Rivers is a 46 y.o. male Demetrio is a 46 year old who presents today for a new patient visit. He was getting care at [facility] in [place], [place] and moved here. He has ran out of his BP medication, lisinopril 40mg daily and has not taken it the last few days. He needs refills on all his medications today. He otherwise is doing well and denies any concerns. ROS: Review of Systems Constitutional: Negative for chills, fever and malaise/fatigue. HENT: Negative for hearing loss. Eyes: Negative for blurred vision. Respiratory: Negative for cough and shortness of breath. Cardiovascular: Negative for chest pain, palpitations and leg swelling. Gastrointestinal: Negative for abdominal pain, blood in stool, diarrhea, nausea and vomiting. Genitourinary: Negative for dysuria and frequency. Musculoskeletal: Negative for joint pain and myalgias. Skin: Negative for rash. Neurological: Negative for dizziness and headaches. Psychiatric/Behavioral: Negative for depression and suicidal ideas. The patient is not nervous/anxious. Patient Active Problem List Diagnosis Code ??? Primary hypertension I10 ??? Osteoarthritis of right knee M17.11 ??? Tubular adenoma of colon D12.6 ??? Diverticulitis of both small and large intestine without perforation or abscess with bleeding K57.53 MEDICATIONS: Current Outpatient Medications on File Prior to Visit Medication Sig Dispense Refill ??? [DISCONTINUED] lisinopriL (Zestril) 20 mg Tablet Take 20 mg by mouth daily. Indications: high blood pressure ??? [DISCONTINUED] meloxicam (MOBIC) 15 mg Tablet Take 15 mg by mouth daily. ??? [DISCONTINUED] albuteroL 90 mcg/actuation HFA Aerosol Inhaler Inhale 2 puffs into the lungs every 4 hours as needed for Wheezing. Use with spacer (Patient not taking: Reported on 07/19/2022) 1 each 1 ??? [DISCONTINUED] guaiFENesin ER (Mucinex) 600 mg Tablet Extended Release 12hr Take 2 tablets by mouth 2 times daily. (Patient not taking: Reported on 07/19/2022) 14 tablet 0 ??? [DISCONTINUED] allopurinol (ZYLOPRIM) 100 mg Tablet Take 3 tablets by mouth daily. (Patient nottaking: No sig reported) 90 tablet 1 ??? [DISCONTINUED] ibuprofen (ADVIL;MOTRIN) 800 mg Tablet Take 1 tablet by mouth every 8 hours as needed for Pain. (Patient not taking: No sig reported) 30 tablet 12 No current facility-administered medications on file prior to visit. ALLERGIES: Allergies Allergen Reactions ??? Bactrim [Sulfamethoxazole-Trimethoprim] Hives and Other (See Comments) Fever, sweating, shortness of breath VITALS: Vitals: 09/17/22 1531 09/17/22 1611 BP: (!) 146/94 (!) 154/98 Pulse: 97 SpO2: 97% Weight: 113.4 kg (250 lb) Height: 178.3 cm (5' 10.2) Physical Exam Constitutional: General: He is not in acute distress. Appearance: Normal appearance. He is not ill-appearing. HENT: Head: Normocephalic and atraumatic. Right Ear: Tympanic membrane, ear canal and external ear normal. Left Ear: Tympanic membrane, ear canal and external ear normal. Mouth/Throat: Mouth: Mucous membranes are moist. Pharynx: Oropharynx is clear. No oropharyngeal exudate or posterior oropharyngeal erythema. Eyes: Extraocular Movements: Extraocular movements intact. Conjunctiva/sclera: Conjunctivae normal. Pupils: Pupils are equal, round, and reactive to light. Neck: Vascular: No carotid bruit. Cardiovascular: Rate and Rhythm: Normal rate and regular rhythm. Pulses: Normal pulses. Heart sounds: Normal heart sounds. Pulmonary: Effort: Pulmonary effort is normal. Breath sounds: Normal breath sounds. Abdominal: General: Bowel sounds are normal. There is no distension. Palpations: Abdomen is soft. Tenderness: There is no abdominal tenderness. There is no right CVA tenderness, left CVA tenderness, guarding or rebound. Musculoskeletal: General: Normal range of motion. Cervical back: Neck supple. No tenderness. Right lower leg: No edema. Left lower leg: No edema. Lymphadenopathy: Cervical: No cervical adenopathy. Skin: General: Skin is warm and dry. Capillary Refill: Capillary refill takes less than 2 seconds. Findings: No lesion or rash. Neurological: General: No focal deficit present. Mental Status: He is alert and oriented to person, place, and time. Sensory: Sensation is intact. Motor: Motor function is intact. Coordination: Coordination is intact. Gait: Gait is intact. Deep Tendon Reflexes: Reflexes are normal and symmetric. Psychiatric: Mood and Affect: Mood normal. Behavior: Behavior normal. documented in this encounter Plan of Treatment Not on file documented as of this encounter Visit Diagnoses Diagnosis Annual physical exam Routine general medical examination at a health care facility Primary hypertension Unspecified essential hypertension Primary osteoarthritis of right knee Primary localized osteoarthrosis, lower leg documented in this encounter Care Teams Healthcare Economics Manager Relationship Specialty Start Date End Date Belkys Houston MD [address] [place] [id number] PCP - General Family Medicine 06/21/22 08/11/23 documented as of this encounter
--- OUTSIDE RECORDS SUMMARY | 2024-08-07 10:37 | XMS_ITS | Encounter Summary ---
Author Organization [facility] Address [facility] [place] [address] Care Team Providers Care Cotton Picker Operator Name Role Phone None Primary Care Provider Unavailabl e Reason for Visit * Consultation (Routine) - Closed Specialty Diagnoses / Procedures Referred By Greg charles Referred To Contact Rheumatology Diagnoses Bilateral chronic knee pain Tony Lees MD [facility] [place] [address] [facility] [address] [place] [address] Referral ID Status Reason Start Date Expiration Date V isits Requested Visits Authorized [id number] Closed Consult, Test & Treat 09/07/2016 09/07/2017 1 1 Encounter Details Date Type Department Care Team (Late st Contact Info) Description 09/09/2016 11:00 AM EST Office [place] [address] Demetrio Ferrer MD [facility] [place] [address] Chronic pain of both knees Social History [...] Sign Reading Time Taken Comments Blood Pressure 148/90 09/09/2016 10:50 AM EST white coat syndrome Pulse 66 09/09/2016 10:50 AM EST Temperature 36.6 ??C (97.9 ??F) 09/09/2016 1 0:50 AM EST Respiratory Rate 18 09/09/2016 10:5 0 AM EST Oxygen Saturation 99% 09/09/2016 10: 50 AM EST Inhaled Oxygen Concentration - - Weight 104.3 kg (230 lb) 09/09/2016 10: 50 AM EST Height 179.1 cm (5' 10.5) 09/09/2016 1 0:50 AM EST Body Mass Index 32.54 09/09/2016 10:50 AM EST documented in this encounter Patient Instructions * Patient Instructions* Demetrio Ferrer MD - 09/09/2016 11:00 AM EST 1. Labs 2. Aspirate and inject knees next Tuesday09.14.16 at 11am by with 48- 72 hours limited 3. F/U with orthopedics 4. 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 He is referred from Orthopedic Surgery at wherehe recently had x-rays showing bone spurs and joint space narrowing c/w knee OA His history is that of chronic knee pain, right greater than left for over 10 years. The pain and swelling have been progressive with worsening based on activity and worse at the end of the day. There have been effusions noted that apparently have become tense at times with relief from joint aspiration 'that lasts a few days' last done over a year ago. There is no hx of locking or giving way since a right medial mensical repair done in 2013. Meloxicam provides mild benefit. Still working 60 hours a week, including through 09.10.16. Prior joint aspirations were reportedly negative for gout, there is no information about cell counts There is no hx uveitis, gout, inflammatory bowel disease, inflammatory back pain,peripheral arthritis. Review of Systems Constitutional: No fevers, chills, malaise. Skin: no rashes HEENT: no sicca sx, change in hearing, taste sinus pain, GOMEZ, change in taste. Respiratory: no chest pain, shortness of breath CV: no BAUER, angina sx, claudication Back: No sciatica, pain with standing GI: no abd pain, normal bowel movements : no dysuria, normal voiding, no nocturia Neuro: no focal deficit Meds: Mobic Physical Examination: General-Well developed well nourished who is alert and in no apparent distress at rest. Blood pressure 148/90, pulse 66, temperature 36.6 ??C (97.9 ??F), resp. rate 18, height 179.1 cm (5' 10.5), weight (!) 104.3 kg (230 lb), SpO2 99 %. Skin-No clubbing, cyanosis, rubor, edema, rash, tophus Back: No tenderness to punch, normal SLR Ext: Extremities warm w// normal pulses Musculoskeletal: Trigger points not present. Shoulders: FROM, no AC/subacromial tenderness. Elbows: Full motion, no joint or epicondylar swelling or tenderness. Wrists: Full motion, no swelling, no warmth, no tenderness over radiocarpal or ulnocarpal joints. Hands: Normal provider relations advocate and claw. SJC/TJC 0/0. Hips: Full motion, no trochanteric tenderness Knees: Marked loss of motion (45 degrees flexion and 75 degrees) right and left respectively. Loss of extension. Large effusion on right, tender along medial joint line. Difficulty rising and walkingwith stiff right leg Ankles: No warmth, swelling, normal motion. No Achilles or plantar fascia tenderness. Feet: No deformity. Normal MTPJs no compression tenderness. Assess: Knee OA, rule out inflammatory causes, attempt to temporize for time to needing arthroplasty Plan 1. Labs 2. Aspirate and inject on Tuesday with 48-72 hours of limited weight bearing. 3. Repeat in 2-3 months if good effect 4. F/u with orthopedics. Level 3 new consult Demetrio Ferrer M.D. documented in this encounter Plan of Treatment Not on file documented as of this encounter Results * (ABNORMAL) Uric acid (09/14/2016 11:58 AM EST) Uric Acid 9.7(H) 3.5 - 8.5 mg/dL [facility] Blood specimen (specimen) 09/14/2016 11:58 AM EST 09/14/2016 12:08 PM EST Narrative Resulting Agency Comment Spec In Lab Demetrio Ferrer MD CHEMISTRY ORDERABLES [facility] [place] [address] * Comprehensive metabolic panel (non-fasting) (09/14/2016 11:58 AM EST) Glucose 113 65 - 199 mg/dL [facility] Comment:Diabetes: >=200 mg/d L plus symptoms Blood Urea Nitrogen 17 10 - 20 mg/dL [facility] Creatinine 1.22 0.80 - 1.50 mg/dL [facility] Comment: Please note that the pediatric reference intervals supplied above were not validated at [facility]. Results from pediatric patients should be interpreted in conjunction to the patient's age, height and muscle mass. Sodium 140 135 - 145 mmol/L [facility] Potassium 4.7 3.5 - 5.0 mmol/L [facility] Comment: Please note: ??Patients with WBC >100,000 may have falsely elevated Potassium levels. ??For accurate Potassium quantification in these patients send serum separator tube (gold top) for subsequent determinations. ??Contact the Clinical Chemistry Laboratory if there are any questions. Chloride 103 98 - 107 mmol/L [facility] Carbon Dioxide 24 22 - 31 mmol/L [facility] Anion Gap 13 5 - 15 mmol/L [facility] Calcium 9.6 8.5 - 10.5 mg/dL [facility] Protein, Total 7.7 6.1 - 8.0 gm/dL [facility] Albumin 4.4 3.2 - 5.2 gm/dL [facility] Aspartate Aminotransferase 29 0 - 39 unit/L [facility] Alanine Aminotransferase 36 0 - 55 unit/L [facility] Alkaline Phosphatase 59 40 - 120 unit/L [facility] Bilirubin, Total 0.4 0.2 - 1.3 mg/dL [facility] Bilirubin, Direct 0.1 0.0 - 0.3 mg/dL [facility] Est Glomerular Filtration Rate >60 >=60 [facility] Comment: This estimated GFR (eGFR) [...] the following links into your internet browser. [email or web address] Blood specimen (specimen) 09/14/2016 11:58 AM EST 09/14/2016 12:08 PM EST Narrative Resulting Agency Comment Spec In Lab Demetrio Ferrer MD CHEMISTRY ORDERABLES [facility] [place] [address] * CRP, cardiac risk (HS CRP) (09/14/2016 11:58 AM EST) C-Reactive Protein High Sensitivity 0.8 mg/L [facility] Comment: For cardiac risk [...] and Cardiovascular Disease. ??Circulation 2003; 107:499-511 2. Liz PM. ??Clinical applications of C-reactive protein for cardiovascular disease detection and prevention. ??Circulation 2003; 107:363-369 CRP Cardiac Risk Low Risk [facility] Blood specimen (specimen) 09/14/2016 11:58 AM EST 09/14/2016 12:08 PM EST Narrative Resulting Agency Comment Spec In Lab Demetrio Ferrer MD CHEMISTRY ORDERABLES [facility] [place] [address] documented in this encounter Visit Diagnoses Diagnosis Chronic pain of both knees documented in this encounter Care Teams Cotton Picker Operator Relationship Specialty Start Date End Date None None PCP - General 08/11/10 06/20/22 documented as of this encounter
--- OUTSIDE RECORDS SUMMARY | 2024-08-07 10:37 | XMS_ITS | Encounter Summary ---
Author Organization [facility] [place] [address] Care Team Providers Care Operation Research Analyst Name Role Phone None Primary Care Provider Unavailabl e Encounter Details Date Type Department Care Team (Late st Contact Info) Description 10/25/2016 Telephone [place] [address] Cassandra Moe, RN Social History Tobacco Use [...] Encounter - Cassandra Moe RN - 10/25/2016 1:05 PM EST Demetrio calls to request a note for work as the one he has is the wrong date. He is requesting a note for 10/20/2016 & 10/21/2016. Note was rewritten. Demetrio will call with a fax number. documented in this encounter Plan of Treatment Not on file documented as of this encounter Visit Diagnoses Not on filedocumented in this encounter Care Teams Operation Research Analyst Relationship Specialty Start Date End Date None None PCP - General 08/11/10 06/20/22 documented as of this encounter
[2024-08-07] MEDS: Normal Saline - Diluent 50 ML VIAL IJ (11:46)
[2024-08-07] MEDS: Omnipaque 350 MG/ML 100 ML BTL IJ (11:46)
--- NOTE | 2024-08-07 13:21 | W.SURGCON ---
Date of service: 08/07/24 Time of Service: 13:21 Assessment and Plan Assessment and plan (1) Acute diverticulitis: Status: Acute Assessment and plan: 48-year-old man with acute sigmoid diverticulitis. He is hemodynamically stable. His abdominal exam is focal and not diffuse. He is up-to-date with a colonoscopy. I suspect that his colicky subjective pain is related to some degree of partial obstructing process at the inflammatory location. I have reviewed his CT scan in careful detail. There is no free air and no obvious free fluid. His sigmoid colon appears noticeably redundant. Distal to the inflammation it travels midline and even somewhat to the right before going into the pelvis and rectum. No evidence of perforation. Overall plan: N.p.o. IV antibiotics IV fluid resuscitation DVT prophylaxis Analgesia as needed History of Present Illness Narrative: Taras is a 48-year-old man who has had prior attacks of diverticulitis in the past. This once is his worse. Started last night. He had his colonoscopy only a couple of months ago and has moderate sigmoid diverticular disease. He has never had intra-abdominal surgery. There is no nausea or vomiting but the pain does come in waves and spasms. PFSH All Active Problems (Updated 08/07/24 @ 13:22 by Lupillo Cui MD) Acute diverticulitis (Acute) Tubular adenoma (Acute) 2019, due 2022 Obesity (Chronic) Osteoarthritis (Chronic) right knee HTN (hypertension) (Acute) Medical History (Updated 08/07/24 @ 13:22 by Lupillo Cui MD) Acute diverticulitis 2018, confirmed by CT at [facility] 12/2021-current episode diagnosed clinically Syncope Alcohol intoxication Lipoma removed 2020 Gout Surgical History (Updated 06/18/24 @ 12:17 by Cary Randall) History of colonoscopy (~05/2024) History of knee surgery R knee Family History Mother High cholesterol Father , 70 Alcohol abuse Diabetes Sister No problems noted. Sister No problems noted. Brother Cancer Brother No problems noted. Brother No problems noted. Brother No problems noted. Social History (Updated 04/06/24 @ 15:05 by Whitney Franks) Smoking/Tobacco Use Status: Current-Occasional Tobacco Type: cigarettes Tobacco: How many years used: 20 Quit status: has quit before Second Hand Exposure: Yes Smoking risk assessment performed?: Yes Alcohol Intake: current Alcohol Intake frequency: a few times a week Alcohol type: beer Drug use: Occasionally Substance use type: marijuana Caregiver/Support person: No Household members: other Details: roomate Housing: house Communication Needs: None Pets and animals: Yes Pets and animals: dog(s) Sexually active: Yes Do you think of yourself as: straight/heterosexual Current gender identity: male How often do you talk on the phone with friends or family?: decline to answer How often do you get together with friends or relatives?: decline to answer Do you belong to any clubs or organized social groups?: no Panel score (0-1 are the most socially isolated patients): 0 Seatbelt use: sometimes Helmet use: Yes Helmet use: always Drive intox or ride w/intox cement truck driver: No Do you feel safe at home: Yes Additional Social history: lives alone Exam Narrative Exam Narrative: Gen: Non-toxic, interactive but does appear uncomfortable Neuro: Alert and oriented x3 Psych: Good mood and affect. Good insight and understanding into condition. Chest: Non-labored breathing, no wheezing, no visible shortness of breath. Heart: Regular Abdomen: Soft, no obvious distention, focal tenderness in the left hemiabdomen with tap tenderness and peritoneal signs. The right hemiabdomen is soft and nontender. He has a palpable, reducible umbilical hernia. Results Last Vital Signs Temp 99.1 F 08/07/24 09:43 Pulse 79 08/07/24 11:16 Resp 17 08/07/24 09:49 BP 170/98 H 08/07/24 11:16 Pulse Ox 95 08/07/24 11:16 Labs 08/07/24 10:15 08/07/24 10:15 Labs: Laboratory Results - last 24 hr 08/07/24 10:15 WBC 11.82 H RBC 5.12 Hgb 16.4 Hct 47.2 MCV 92 MCH 32.0 MCHC 34.7 RDW 12.6 Plt Count 259 MPV 9.2 Immature Gran % 0.5 Neutrophils % 77.2 Lymphocytes % 15.0 Monocytes % 6.5 Eosinophils % 0.5 Basophils % 0.3 Nucleated RBC % 0.0 Absolute Neutrophils 9.13 H Absolute Lymphocytes 1.77 Absolute Monocytes 0.77 Absolute Eosinophils 0.06 Absolute Basophils 0.04 Sodium 138 Potassium 4.0 Chloride 105 Carbon Dioxide 26.0 Anion Gap 7.0 BUN 13 Creatinine 1.3 Est GFR (CKD-EPI 2020) 68.19 Glucose 113 H Calcium 9.0 Total Bilirubin 0.89 AST 20 ALT 39 Alkaline Phosphatase 83 Total Protein 7.5 Albumin 3.3 L
[2024-08-07] MEDS: PIPERACILLIN/TAZO 3.375 GM in Normal Saline 50 ML IVPB ×2 (13:48→20:10)
[2024-08-07] MEDS: ACETAMINOPHEN 1,000 MG/100 ML BAG 400 MG IVPB ×2 (13:48→19:48)
[2024-08-07] MEDS: Enoxaparin 40 MG/0.4 ML SYR SC (14:35)
--- OUTSIDE RECORDS SUMMARY | 2024-08-07 14:40 | XMS_ITS | Encounter Summary ---
Author Organization [facility] Address [facility] [place] [address] Care Team Providers Care Wares Sorter Name Role Phone Emerita Falcon MD Primary Care Provider +1- [phone] Encounter Details Date Type Department Care Team (Late st Contact Info) Description 08/19/2023 Telephone Primary Care at [address] [address] Debby Rasmussen Social History Tobacco [...] AM EST Faxed Short-term D claim to [facility] [phone]; receipt acknowledged; sent to [facility] documented in this encounter Plan of Treatment Not on file documented as of this encounter Visit Diagnoses Not on filedocumented in this encounter Care Teams Wares Sorter Relationship Specialty Start Date End Date Emerita Falcon MD [address] [place] [address] PCP - General Family Medicine 08/12/23 documented as of this encounter
--- OUTSIDE RECORDS SUMMARY | 2024-08-07 14:40 | XMS_ITS | Encounter Summary ---
Author Organization [facility] Address [facility] [place] [address] Care Team Providers Care Milker Machine Name Role Phone Eemrita Falcon MD Primary Care Provider +1- [phone] Reason for Visit * Physical Therapy (Routine) - Closed Specialty Diagnoses / Procedures Referred By Contac t Referred To Contact Physical Therapy Diagnoses Lumbar back pain Amber Eastman, MANAGER CAR [address] [place] [address] [facility] [address] [place] [address] Referral ID Status Reason Start Date Expiration Date V isits Requested Visits Authorized [id number] Closed Evaluate and Treat 07/07/2023 07/06/2024 20 20 Encounter Details Date Type Department Care Team (Late st Contact Info) Description 09/30/2023 3:30 PM EST Office Visit Physical Therapy at [address] [address] Carson Mittal, PT Low back pain, non-specific Social History Tobacco Use Types Packs/Day Years Used Date Smoking Tobacco: Former Cigarettes - 2021 Passive Smoke Exposure: Current Smokeless Tobacco: Never Comments:Doesn't smoke durin g the week. 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
--- OUTSIDE RECORDS SUMMARY | 2024-08-07 14:40 | XMS_ITS | Encounter Summary ---
Author Organization [facility] Address [facility] [place] [address] Care Team Providers Care Claim Examiner Name Role Phone Emerita Falcon MD Primary Care Provider +1- [phone] Reason for Visit * Reason Onset Date Comments Medication Refill 09/01/2023 Encounter Details Date Type Department Care Team (Late st Contact Info) Description 09/01/2023 Refill Primary Care at [address] [phone] Rosalie Earl Social History Tobacco Use Types Packs/Day Years Used Date Smoking Tobacco: Former Cigarettes - 2021 Passive Smoke Exposure: Current Smokeless Tobacco: Never Comments:Doesn't smoke durin g the week. 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
--- OUTSIDE RECORDS SUMMARY | 2024-08-07 14:40 | XMS_ITS | Encounter Summary ---
Author Organization [facility] Address [facility] [place] [address] Care Team Providers Care Document Imaging Manager Name Role Phone Emerita Falcon MD Primary Care Provider +1- [phone] Encounter Details Date Type Department Care Team ([facility] st Contact Info) Description 09/09/2023 Telephone Physical Therapy at [address] [address] Carson Mittal, PT Social History [...] on filedocumented in this encounter Care Teams Document Imaging Manager Relationship Specialty Start Date End Date Emerita Falcon MD [address] [place] [address] PCP - General Family Medicine 08/12/23 documented as of this encounter
--- OUTSIDE RECORDS SUMMARY | 2024-08-07 14:40 | XMS_ITS | Encounter Summary ---
Author Organization [facility] Address [facility] [place] [address] Care Team Providers Care Agricultural Researcher Name Role Phone Emerita Falcon MD Primary Care Provider +1- [phone] Reason for Visit * Reason Comments Medication Refill Encounter Details Date Type Department Care Team ([facility] st Contact Info) Description 12/03/2023 Refill Primary Care at [address] [address] Enma Ngo, NURSING PROFESSOR [address] [place] [address] Primary hypertension Social History Tobacco Use Types Packs/Day Years Used Date Smoking Tobacco: Former Cigarettes 2021 Passive Smoke Exposure: Current Smokeless Tobacco: Never Comments:Doesn't smoke durin g the week. 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
--- OUTSIDE RECORDS SUMMARY | 2024-08-07 14:40 | XMS_ITS | Encounter Summary ---
Author Organization Replaced By [facility] Address [facility] [place] [address] Care Team Providers Care Water Jet Loom Fixer Name Role Phone Emerita Falcon MD Primary Care Provider +1- [phone] Encounter Details Date Type Department Care Team (Late st Contact Info) Description 09/29/2023 Telephone Pain Management at [facility] [place] [address] Brianna Elizabeth RN Social History Tobacco Use Types Packs/Day Years Used Date Smoking Tobacco: Former Cigarettes - 2021 Passive Smoke Exposure: Current Smokeless Tobacco: Never Comments:Doesn't smoke durin g the week. 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
--- OUTSIDE RECORDS SUMMARY | 2024-08-07 14:40 | XMS_ITS | Encounter Summary ---
Author Organization [facility] Address [facility] [place] [address] Care Team Providers Care Energy Sales Consultant Name Role Phone Emerita Falcon MD Primary Care Provider +1- [phone] Reason for Referral * Physical Therapy (Routine) - Closed Specialty Diagnoses / Procedures Referred By Contac t Referred To Contact Physical Therapy Diagnoses Lumbar strain, initial encounter Chronic pain syndrome Radiculopathy of lumbar region Manoj Douglas MD [address] PHYSICAL [place] [address] [facility] [address] [place] [address] Referral ID Status Reason Start Date Expiration Date V isits Requested Visits Authorized [id number] Closed Evaluate and Treat 08/31/2023 08/30/2024 12 12 Encounter Details Date Type Department Care Team (Late st Contact Info) Description 08/31/2023 Orders Only Pain Management at [address] [place] [id number] Manoj Douglas MD [address] [facility] [place] [address] Lumbar strain, initial encounter; Chronic pain syndrome; Radiculopathy of lumbar region Social History Tobacco Use Types Packs/Day Years Used Date Smoking Tobacco: Former Cigarettes 2 2021 Passive Smoke Exposure: Current Smokeless Tobacco: Never Comments:Doesn't smoke durin g the week. 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 Alcohol Use [...] of this encounter Plan of Treatment Scheduled Referrals Name Type Priority Associated Diagnoses Orde r Schedule Referral to Physical Therapy Outpatient Referral Routine Lumbar strain, initial encounter Chronic pain syndrome Radiculopathy of lumbar region Ordered: 08/31/2023 documented as of this encounter Visit Diagnoses Diagnosis Lumbar strain, initial encounter Chronic pain syndrome Radiculopathy of lumbar region Thoracic or lumbosacral neuritis or radiculitis, unspecified documented in this encounter Care Teams Energy Sales Consultant Relationship Specialty Start Date End Date Emerita Falcon MD [address] [place] [address] PCP - General Family Medicine 08/12/23 documented as of this encounter
--- OUTSIDE RECORDS SUMMARY | 2024-08-07 14:40 | XMS_ITS | Encounter Summary ---
Author Organization [facility] Address One [facility] [place] [address] Care Team Providers Care Traction Power Engineer Name Role Phone Emerita Falcon MD Primary Care Provider +1- [phone] Reason for Visit * Physical Therapy (Routine) - Closed Specialty Diagnoses / Procedures Referred By Contac t Referred To Contact Physical Therapy Diagnoses Lumbar back pain Amber Eastman, PC SUPPORT SPECIALIST [address] [place] [address] [facility] [address] [place] [address] Referral ID Status Reason Start Date Expiration Date V isits Requested Visits Authorized [id number] Closed Evaluate and Treat 07/07/2023 07/06/2024 20 20 Encounter Details Date Type Department Care Team (Late st Contact Info) Description 09/23/2023 2:00 PM EST Office Visit Physical Therapy at [address] [address] Carson Mittal, PT Low back pain, non-specific Social History Tobacco Use Types Packs/Day Years Used Date Smoking Tobacco: Former Cigarettes - 2021 Passive Smoke Exposure: Current Smokeless Tobacco: Never Comments:Doesn't smoke durin g the week. 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
--- OUTSIDE RECORDS SUMMARY | 2024-08-07 14:40 | XMS_ITS | Encounter Summary ---
Author Organization [facility] Address [facility] [place] [address] Care Team Providers Care Track Watchman Name Role Phone Emerita Falcon MD Primary Care Provider +1- [phone] Reason for Visit * Reason Comments Medication Refill Encounter Details Date Type Department Care Team (Late st Contact Info) Description 12/06/2023 Refill Primary Care at [facility] [address] [place] [phone] Emerita Falcon MD 62 [facility] [place] [address] Social History Tobacco Use Types Packs/Day Years Used Date Smoking Tobacco: Former Cigarettes 2021 Passive Smoke Exposure: Current Smokeless Tobacco: Never Comments:Doesn't smoke durin g the week. 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
--- OUTSIDE RECORDS SUMMARY | 2024-08-07 14:40 | XMS_ITS | Encounter Summary ---
Author Organization [facility] Address One [facility] [place] [address] Care Team Providers Care Contaminated Land Consultant Name Role Phone Emerita Falcon MD Primary Care Provider +1- [phone] Encounter Details Date Type Department Care Team [...] on filedocumented in this encounter Care Teams Contaminated Land Consultant Relationship Specialty Start Date End Date Emerita Falcon MD [address] [place] [address] PCP - General Family Medicine 08/12/23 documented as of this encounter
--- OUTSIDE RECORDS SUMMARY | 2024-08-07 14:40 | XMS_ITS | Encounter Summary ---
Author Organization [facility] Address One [facility] [place] [address] Care Team Providers Care Needle Felt Making Machine Operator Name Role Phone Emerita Falcon MD Primary Care Provider +1- [phone] Reason for Visit * Reason Comments Follow-up 6 week follow up. Encounter Details Date Type Department Care Team (Late st Contact Info) Description 10/04/2023 4:30 PM EST Office Visit Primary Care at [facility] [address] [place] [phone] Emerita Falcon MD 62 [facility] [place] [address] Low back pain, non-specific; Witnessed apneic spells; Class 2 obesity due to excess calories without serious comorbidity with body mass index (BMI) of 36.0 to 36.9 in adult Social History Tobacco Use Types Packs/Day Years Used Date Smoking Tobacco: Former Cigarettes 2021 Passive Smoke Exposure: Current Smokeless Tobacco: Never Comments:Doesn't smoke durin g the week. 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
--- OUTSIDE RECORDS SUMMARY | 2024-08-07 14:40 | XMS_ITS | Encounter Summary ---
Author Organization [facility] Address One [facility] [place] [address] Care Team Providers Care Partition Setter Name Role Phone Emerita Falcon MD Primary Care Provider +1- [phone] Reason for Visit * Physical Therapy (Routine) - Closed Specialty Diagnoses / Procedures Referred By Contac t Referred To Contact Physical Therapy Diagnoses Lumbar back pain Amber Eastman, FUEL OPERATOR [address] [place] [address] [facility] [address] [place] [id number] Referral ID Status Reason Start Date Expiration Date V isits Requested Visits Authorized [id number] Closed Evaluate and Treat 07/07/2023 07/06/2024 20 20 Encounter Details Date Type Department Care Team (Late st Contact Info) Description 09/16/2023 2:00 PM EST Office Visit Physical Therapy at [address] [address] Melia Baez, SCHOOL GUARD Low back pain, non-specific Social History Tobacco [...] A: pt spoke today re: going to [email or web address] to start and exercise program. He reported [...] non-specific documented in this encounter Care Teams Partition Setter Relationship Specialty Start Date End Date Emerita Falcon MD 62 [facility] [place] [address] PCP - General Family Medicine 08/12/23 documented as of this encounter
--- OUTSIDE RECORDS SUMMARY | 2024-08-07 14:40 | XMS_ITS | Encounter Summary ---
Author Organization [facility] Address [facility] [place] [address] Care Team Providers Care Tech Ed Teacher Name Role Phone Emerita Falcon MD Primary Care Provider +1- [phone] Encounter Details Date Type Department Care Team (Late st Contact Info) Description 08/19/2023 Orders Only Primary Care at [address] [address] Emerita Falcon MD 62 [facility] [place] [address] Tachycardia Social History Tobacco Use [...] unspecified documented in this encounter Care Teams Tech Ed Teacher Relationship Specialty Start Date End Date Emerita Falcon MD 62 [facility] [place] [address] PCP - General Family Medicine 08/12/23 documented as of this encounter
--- OUTSIDE RECORDS SUMMARY | 2024-08-07 14:40 | XMS_ITS | Encounter Summary ---
Author Organization [facility] Address [facility] [place] [address] Care Team Providers Care Database Reporting Consultant Name Role Phone Emerita Falcon MD Primary Care Provider +1- [phone] Encounter Details Date Type Department Care Team (Latest Contact Info) Description 08/19/2023 11:50 AM EST Laboratory Appointment Lab at [address] [address] Low back pain, non-specific; Lumbar [...] Associated Diagnosis Comments OPIOIDS CONFIRMATION PANEL, URINE ([place]) Routine 08/19/2023 11:50 AM EST Lumbar radiculopathy, [...] developed and its performance characteristics ?determined by [facility] in a manner consistent with CLIA ?requirements. This test has not been cleared or approved by ?the U.S. Food and Drug Administration. ?Test Performed by: ?[facility] ?[address] [id number] ?Optometric Tech: Demetrio Harris M.D. Ph.D.; CLIA# [id number] [facility] Urine 08/19/2023 11:5 0 AM EST 08/22/2023 1:57 PM EST Narrative Resulting Agency Comment Spec In Lab Emerita Falcon MD LAB SEND OUT ORDER TONY [facility] [place] [address] * Opioids Confirmation Panel, Urine (08/19/2023 11:50 AM EST) Targeted Opioid Panel, Urine (MAY) Test ?Result ? Flag ??Unit ?? RefValue ------- Targeted Opioid Screen, U ??List prescribed opioids ? See medication list ? ---ADDITIONAL INFORMATION------- ?Accuracy and completeness of declared medications on ?reports solely dependent on information submitted by ?client. ??Codeine ? Not Detected ? ng/mL ??Cutoff: 25 ?Tylenol 3 ??Ulsazdd-6-dvca-g lucuronide ?Not Detected ? ng/mL ??Cutoff: 100 ?Metabolite of codeine ??Morphine ?Not Detected ? ng/mL ??Cutoff: 25 ?Kristen Andrea, MS Contin; Also a minor metabolite (10%) of ?codeine and can be seen in low concentrations (<2,000 ?ng/mL) with poppy seed ingestion. ??Joeyiphg-9-mref- glucuronide ? Not Detected ? ng/mL ??Cutoff: 100 ?Metabolite of morphine ??6-monoacetylmorp angelito ?Not Detected ? ng/mL ??Cutoff: 25 ?Metabolite of heroin ??Hydrocodone ? Not Detected ? ng/mL ??Cutoff: 25 ?Lortab, [place], Vicodin; Also a very minor metabolite of [...] ?Numorphan, Opana; Also a metabolite of oxycodone. ??Lvxxwxdyqky-3-dk ta-glucuronide ?Not Detected ? ng/mL ??Cutoff: 100 [...] ?Not Detected ? ng/mL ??Cutoff: 25 ?Narcan ??Mzeydinz-1-jduk- glucuronide ? Not Detected ? ng/mL ??Cutoff: [...] developed and its performance characteristics ?determined by [facility] in a manner consistent with CLIA ?requirements. This test has not been cleared or approved by ?the U.S. Food and Drug Administration. ?Test Performed by: ?[facility] ?[address] [place] [address] ?Optometric Tech: Demetrio Harris M.D. Ph.D.; CLIA# [id number] [facility] Urine 08/19/2023 11:5 0 AM EST 08/19/2023 5:40 PM EST Emerita Falcon MD LAB SEND OUT ORDER TONY [facility] [address] [place] [address] * (ABNORMAL) Rapid Drug Screen, Compliance Monitoring (08/19/2023 11:50 AM EST) Barbiturates Screen, Urine None Detected None Detected [facility] Comment: The barbiturate screen detects [...] Benzodiazepines Screen, Urine None Detected None Detected [facility] Comment: The benzodiazepines screen detects [...] Cocaine Screen, Urine None Detected None Detected [facility] Comment: The cocaine metabolites screen detects benzoylecgonine (Cocaine Metabolite) at concentrations >150 ng/mL. A ? Presumptive Positive? result indicates that the screening result was positive but has not yet been confirmed by a highly-specific method. As with any screen, occasional false positive results from cross-reacting substances may occur. Not for Medico-Legal Purposes. Cannabinoid Screen, Urine Presumptive Pos(A) None Detected [facility] Comment: The marijuana metabolites screen detects the THC metabolite (87-fld-7-carboxy-delta 9-THC) at concentrations >20 ng/mL. A ? Presumptive Positive? result indicates that the screening result was positive but has not yet been confirmed by a highly-specific method. As with any screen, occasional false positive results from cross-reacting substances may occur. Not for Medico-Legal Purposes. Tricyclics Screen, Urine None Detected None Detected [facility] Comment: The tricyclics screen detects [...] characteristics of this test were determined by [facility] in accordance with CLIA requirements. This laboratory is qualified under CLIA to perform high-complexity testing. Ethanol Screen, Urine Positive(A) None Detected [facility] Comment:This urine ethanol a ssay detects ethanol at concentrations >/= 100 mg/L. Amphetamines Screen, Urine None Detected None Detected [facility] Comment: The amphetamine screen detects d-amphetamine and d-methamphetamine at concentrations >300 ng/mL. A ? Presumptive Positive? result indicates that the screening result was positive but has not yet been confirmed by a highly-specific method. As with any screen, occasional false positive results from cross-reacting substances may occur. Not for Medico-Legal Purposes. Chromate Specimen Validity Test, Urine <2.0 <=49.9 mg/L [facility] Creatinine Specimen Validity Test, Urine 67 >=20 mg/dL [facility] Nitrite Specimen Validity Test, Urine <50 <=499 mg/L [facility] Oxidant Specimen Validity Test, Urine 11 <=199 mg/L [facility] pH Specimen Validity Test, Urine 5.9 3.0 - 10.9 [facility] Adulterants Screen, Urine None Detected None Detected [facility] Comment:No adulteration of t his urine sample was detected. Urine 08/19/2023 11:5 0 AM EST 08/19/2023 7:48 PM EST Narrative Resulting Agency Comment Spec In Lab Emerita Falcon MD URINE ORDERABLES Performing Organization Address City/State/[facility] Co de Phone Number [facility] [place] [address] * Differential, Automated (08/19/2023 11:33 AM EST) Neutrophil % 48.7 % [facility] Neutrophil Absolute 3.25 1.70 - 6.10 x10(3)/[facility] Lymph % 39.6 % [facility] Lymphocytes Abs 2.6 0.9 - 3.2 x10(3)/[facility] Monocyte % 7.1 % [facility] Monocyte Abs 0.5 0.3 - 0.9 x10(3)/[facility] Eos % 3.2 % [facility] Eosinophils Abs 0.2 0.0 - 0.4 x10(3)/[facility] Basophil % 0.8 % [facility] Baso Absolute 0.0 0.0 - 0.1 x10(3)/[facility] Immature Gran % 0.60 % [facility] Comment: Immature granulocytes(IG's)percentage and absolute count will include metamyelocytes, myelocytes, and promyelocytes. Blood smears from CBCs yielding IG's will be scanned manually for concordance. If this scan disagrees with the automated IG or if promyelocytes are noted, a manual differential will be performed. Immature Gran Absolute 0.04 0.00 - 0.04 x10(3)/[facility] Blood 08/19/2023 11:3 3 AM EST 08/19/2023 11:33 AM EST Narrative Resulting Agency Comment Spec In Lab Emerita Falcon MD HEMATOLOGY ORDERAB LES Performing Organization Address City/State/[facility] Co de Phone Number [facility] [address] [place] [address] * Hemogram (08/19/2023 11:33 AM EST) White Blood Cell 6.7 4.0 - 9.5 x10(3)/[facility] Red Blood Cell 5.09 4.58 - 5.54 x10(6)/[facility] Hemoglobin 15.8 13.7 - 16.5 g/dL [facility] Hematocrit 45.4 40.5 - 48.5 % [facility] Mean Cell Volume 89.2 82.9 - 93.1 fL [facility] Mean Cell Hemoglobin 31.0 27.5 - 32.1 pg [facility] Mean Cell Hemoglobin Concentration 34.8 32.0 - 35.7 g/dL [facility] Platelet 319 145 - 357 x10(3)/[facility] RDW Standard Deviation 44.2 36.0 - 45.0 fL [facility] RDW coefficient of variation 13.5 11.4 - 13.8 % [facility] Mean Platelet Volume 8.9 7.6 - 12.9 fL [facility] NRBC% auto 0.0 % [facility] NRBC Absolute 0.000 0.000 - 0.000 x10(3)/[facility] Blood 08/19/2023 11:3 3 AM EST 08/19/2023 11:33 AM EST Narrative Resulting Agency Comment Spec In Lab Emerita Falcon MD HEMATOLOGY ORDERAB LES [facility] [address] [place] [address] * (ABNORMAL) Comprehensive metabolic panel (non-fasting) (08/19/2023 11:33 AM EST) Glucose 98 65 - 199 mg/dL [facility] Comment:Diabetes: >=200 mg/d L plus symptoms Blood Urea Nitrogen 16 10 - 20 mg/dL [facility] Creatinine 1.30 0.80 - 1.50 mg/dL [facility] Sodium 138 135 - 145 mmol/L [facility] Potassium 4.6 3.5 - 5.0 mmol/L [facility] Comment: Please note: ??Patients with WBC >100,000 may have falsely elevated Potassium levels. ??For accurate Potassium quantification in these patients send serum separator tube (gold top) for subsequent determinations. ??Contact the Clinical Chemistry Laboratory if there are any questions. Chloride 104 98 - 107 mmol/L [facility] Carbon Dioxide 23 22 - 31 mmol/L [facility] Anion Gap 11 5 - 15 mmol/L [facility] Calcium 9.9 8.5 - 10.5 mg/dL [facility] Protein, Total 7.4 6.1 - 8.0 g/dL [facility] Albumin 4.5 3.2 - 5.2 g/dL [facility] Aspartate Aminotransferase 37 0 - 39 unit/L [facility] Alanine Aminotransferase 56(H) 0 - 55 unit/L [facility] Alkaline Phosphatase 79 40 - 130 unit/L [facility] Bilirubin, Total 0.7 0.2 - 1.3 mg/dL [facility] Est Glomerular Filtration Rate 69 >=60 mL/min/1. 73 m?? [facility] Comment: This patient's estimated GFR was [...] MD CHEMISTRY ORDERABL ES Performing Organization Address [facility] Co de Phone Number [facility] [address] [place] [address] * CRP, acute inflammation (08/19/2023 11:33 AM EST) C-Reactive Protein <3.0 <=4.9 mg/L [facility] Blood 08/19/2023 11:3 3 AM EST 08/19/2023 11:33 AM EST Narrative Resulting Agency Comment Spec In Lab Emerita Falcon MD CHEMISTRY ORDERABL ES Performing Organization Address [facility] Co de Phone Number [facility] [address] [place] [address] documented in this encounter Visit Diagnoses Diagnosis Low back pain, non-specific Lumbar radiculopathy, right documented in this encounter Care Teams Database Reporting Consultant Relationship Specialty Start Date End Date Emerita Falcon MD [address] [place] [address] PCP - General Family Medicine 08/12/23 documented as of this encounter
--- OUTSIDE RECORDS SUMMARY | 2024-08-07 14:40 | XMS_ITS | Encounter Summary ---
Author Organization [facility] Address One [facility] [place] [address] Care Team Providers Care Senior Staff Specialized Employment Name Role Phone Emerita Falcon MD Primary Care Provider +1- [phone] Reason for Visit * Physical Therapy (Routine) - Closed Specialty Diagnoses / Procedures Referred By Contac t Referred To Contact Physical Therapy Diagnoses Lumbar back pain Amber Eastman, SUPERINTENDENT COMPRESSOR STATIONS [address] [place] [address] [facility] [address] [place] [address] Referral ID Status Reason Start Date Expiration Date V isits Requested Visits Authorized [id number] Closed Evaluate and Treat 07/07/2023 07/06/2024 20 20 Encounter Details Date Type Department Care Team (Late st Contact Info) Description 09/02/2023 3:00 PM EST Office Visit Physical Therapy at [address] [address] Melia Baez, ICE GUARD TESTER Low back pain, non-specific Social History Tobacco Use Types Packs/Day Years Used Date Smoking Tobacco: Former Cigarettes - 2021 Passive Smoke Exposure: Current Smokeless Tobacco: Never Comments:Doesn't smoke durin g the week. 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
--- OUTSIDE RECORDS SUMMARY | 2024-08-07 14:40 | XMS_ITS | Encounter Summary ---
Author Organization [facility] Address One [facility] [place] [address] Care Team Providers Care Twister Tender Name Role Phone Emerita Falcon MD Primary Care Provider +1- [phone] Encounter Details Date Type Department Care Team (Latest Contact Info) Description 10/04/2023 Travel Social History Tobacco Use Types Packs/Day Years Used Date Smoking Tobacco: Former Cigarettes 2021 Passive Smoke Exposure: Current Smokeless Tobacco: Never Comments:Doesn't smoke durin g the week. 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
--- OUTSIDE RECORDS SUMMARY | 2024-08-07 14:40 | XMS_ITS | Encounter Summary ---
Author Organization [facility] Address One [facility] [place] [address] Care Team Providers Care Oracle Ebs Consultant Name Role Phone Emerita Falcon MD Primary Care Provider +1- [phone] Reason for Referral * Diagnostic Test (Routine) - Authorized Specialty Diagnoses / Procedures Referred By Contac t Referred To Contact Sleep Center Diagnoses Witnessed apneic spells Procedures Home Sleep Study Emerita Falcon MD [address] [place] [address] Sleep Medicine, [facility] [address] [facility] [address] [place] [address] Referral ID Status Reason Start Date Expiration Date Visits Requested Visits Authorized [id number] Authorized Specialty Service Requested 3 09/06/2024 1 1 Encounter Details Date Type Department Care Team ([facility] st Contact Info) Description 09/06/2023 Orders Only Primary Care at [facility] [address] [place] [address] Emerita Falcon MD [address] [place], [place] [id number] Witnessed apneic spells Social History Tobacco Use Types Packs/Day Years Used Date Smoking Tobacco: Former Cigarettes - 2021 Passive Smoke Exposure: Current Smokeless Tobacco: Never Comments:Doesn't smoke durin g the week. 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 [place] [address] PCP - General Family Medicine 08/12/23 documented as of this encounter
--- OUTSIDE RECORDS SUMMARY | 2024-08-07 14:40 | XMS_ITS | Encounter Summary ---
Author Organization [facility] Address One [facility] [place] [address] Care Team Providers Care Adzing And Boring Machine Feeder Name Role Phone Emerita Falcon MD Primary Care Provider +1- [phone] Reason for Visit * Physical Therapy (Routine) - Closed Specialty Diagnoses / Procedures Referred By Contac t Referred To Contact Physical Therapy Diagnoses Lumbar back pain Amber Eastman, POTTERY DECORATION DESIGNER [address] [place] [address] [facility] [address] [place] [address] Referral ID Status Reason Start Date Expiration Date V isits Requested Visits Authorized [id number] Closed Evaluate and Treat 07/07/2023 07/06/2024 20 20 Encounter Details Date Type Department Care Team (Late st Contact Info) Description 10/07/2023 5:00 PM EST Office Visit Physical Therapy at [address] [address] Melia Baez, INSTRUCTIONAL SYSTEMS SPECIALIST Low back pain, non-specific Social History Tobacco Use Types Packs/Day Years Used Date Smoking Tobacco: Former Cigarettes - 2021 Passive Smoke Exposure: Current Smokeless Tobacco: Never Comments:Doesn't smoke durin g the week. 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
--- OUTSIDE RECORDS SUMMARY | 2024-08-07 14:40 | XMS_ITS | Encounter Summary ---
Author Organization [facility] Address One [facility] [place] [address] Care Team Providers Care Glass Cutting Machine Operator Name Role Phone Emerita Falcon MD Primary Care Provider +1- [phone] Encounter Details Date Type Department Care Team (Latest Contact Info) Description 09/02/2023 Travel Social History Tobacco Use Types Packs/Day Years Used Date Smoking Tobacco: Former Cigarettes 2021 Passive Smoke Exposure: Current Smokeless Tobacco: Never Comments:Doesn't smoke durin g the week. 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
--- OUTSIDE RECORDS SUMMARY | 2024-08-07 14:40 | XMS_ITS | Encounter Summary ---
Author Organization [facility] Address [facility] [place] [address] Care Team Providers Care Boiler Coverer Name Role Phone Emerita Falcon MD Primary Care Provider +1- [phone] Reason for Visit * Reason Comments Establish Care Right sided low back pain and knee pain * Consultation (Routine) - Closed Specialty Diagnoses / Procedures Referred By Contac t Referred To Contact [facility] Diagnoses Bulging lumbar disc Amber aEstman, MANAGER OF BUSINESS OPERATIONS [address] [facility] [place] [address] [facility] Pain Management [address] [place] [address] Referral ID Status Reason Start Date Expiration Date V isits Requested Visits Authorized [id number] Closed Consult, Test & Treat 07/28/2023 07/27/2024 1 1 Encounter Details Date Type Department Care Team (Late st Contact Info) Description 08/31/2023 1:30 PM EST Office Visit Pain Management at [facility] [address] [place] [address] Manoj Douglas MD 10 [facility] [place] [address] Lumbar strain, initial encounter; Chronic pain syndrome; Radiculopathy of lumbar region Social History Tobacco Use Types Packs/Day Years Used Date Smoking Tobacco: Former Cigarettes - 2021 Passive Smoke Exposure: Current Smokeless Tobacco: Never Tobacco Cessation:Counseling Given: Not Answered Comments:Doesn't smoke during the week. 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
--- OUTSIDE RECORDS SUMMARY | 2024-08-07 14:40 | XMS_ITS | Clinical Summary ---
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 Alcohol Use [...] EST) Glucose 98 65 - 199 mg/dL [facility] Comment:Diabetes: >=200 mg/d L plus symptoms Blood Urea Nitrogen 16 10 - 20 mg/dL [facility] Creatinine 1.30 0.80 - 1.50 mg/dL [facility] Sodium 138 135 - 145 mmol/L [facility] Potassium 4.6 3.5 - 5.0 mmol/L [facility] Comment: Please note: ??Patients with WBC >100,000 may have falsely elevated Potassium levels. ??For accurate Potassium quantification in these patients send serum separator tube (gold top) for subsequent determinations. ??Contact the Clinical Chemistry Laboratory if there are any questions. Chloride 104 98 - 107 mmol/L [facility] Carbon Dioxide 23 22 - 31 mmol/L [facility] Anion Gap 11 5 - 15 mmol/L [facility] Calcium 9.9 8.5 - 10.5 mg/dL [facility] Protein, Total 7.4 6.1 - 8.0 g/dL [facility] Albumin 4.5 3.2 - 5.2 g/dL [facility] Aspartate Aminotransferase 37 0 - 39 unit/L [facility] Alanine Aminotransferase 56(H) 0 - 55 unit/L [facility] Alkaline Phosphatase 79 40 - 130 unit/L [facility] Bilirubin, Total 0.7 0.2 - 1.3 mg/dL [facility] Est Glomerular Filtration Rate 69 >=60 mL/min/1. 73 m?? [facility] Comment: This patient's estimated GFR was [...] Lab Emerita Falcon MD CHEMISTRY ORDERABL ES [facility] [address] [place] [address] * COLONOSCOPY (10/25/2022 12:33 PM EST) COLONOSCOPY ___ Patient Name: Demetrio Rivers Procedure Date: 10/25/2022 12:33 PM ?Attending MD: Maite Barraza MD Date of : 1975 ? Order #: [id number] Age: 46 ?Instrument Name: [id number] ___ Procedure: ? Colonoscopy Indications: ? Screening [...] nurse, the ? anesthesiologist and the ? compliance field technician. The procedure was ? verified in [...] Procedure Code(s): ? --- Professional --- ? 53415, Colonoscopy, flexible; with ? removal of tumor(s), [...] ? abscess without bleeding CPT copyright 2020 [employer]. All rights reserved. The codes documented in this report are preliminary and upon prototype deicer assembler review may be revised to meet current [...] AM EST) Hepatitis C Antibody Negative Negative [facility] Blood specimen (specimen) 11/05/2016 11:16 AM EST 11/05/2016 11:31 AM EST Narrative Resulting Agency Comment Spec In Lab Shola Ramirez MD CHEMISTRY ORDERABLES [facility] [place] [address] from Last 3 Months or Most Recently Relevant to Health Maintenance Care Teams Railway Switchman Relationship Specialty Start Date End Date Emerita Falcon MD [address] [facility] [place] [address] PCP - General Family Medicine 08/12/23
--- OUTSIDE RECORDS SUMMARY | 2024-08-07 14:40 | XMS_ITS | Encounter Summary ---
Author Organization [facility] Address One [facility] [place] [address] Care Team Providers Care Photolithographic Stripper Name Role Phone Emerita Falcon MD Primary Care Provider +1- [phone] Reason for Visit * Physical Therapy (Routine) - Closed Specialty Diagnoses / Procedures Referred By Contac t Referred To Contact Physical Therapy Diagnoses Lumbar back pain Amber Eastman, CARTOGRAPHY/MAPPING TECHNICIAN [address] [place] [address] [facility] [address] [place] [address] Referral ID Status Reason Start Date Expiration Date V isits Requested Visits Authorized [id number] Closed Evaluate and Treat 07/07/2023 07/06/2024 20 20 Encounter Details Date Type Department Care Team ([facility] st Contact Info) Description 08/24/2023 3:00 PM EST Office Visit Physical Therapy at [address] [address] Carson Mittal, PT Low back [...] Referring Provider: Amber Eastman Primary Insurance: Payor: [employer] / Plan: [employer] OPEN ACCESS PLUS / Product Type: *No [...] 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 Cause: no known injury Social history: occupation: [...] self management strategies for pain symptoms. Therapy Watershed Tender Goals (12 weeks) Patient will: 1. be indep with adjunct faculty for medical terminology home exercise and/or gym program to sustain [...] non-specific documented in this encounter Care Teams Photolithographic Stripper Relationship Specialty Start Date End Date Emerita Falcon MD [address] [place] [address] PCP - General Family Medicine 08/12/23 documented as of this encounter
--- OUTSIDE RECORDS SUMMARY | 2024-08-07 14:40 | XMS_ITS | Encounter Summary ---
Author Organization [facility] Address [facility] [place] [address] Care Team Providers Care Mine Surveyor Name Role Phone Emerita Falcon MD Primary Care Provider +1- [phone] Reason for Visit * Reason Comments Medication Refill Encounter Details Date Type Department Care Team ([facility] st Contact Info) Description 08/29/2023 Refill Primary Care at [address] [address] Enma Ngo, SUPERVISOR GREEN END DEPARTMENT [address] [place] [address] Primary osteoarthritis of right knee Social [...] leg documented in this encounter Care Teams Mine Surveyor Relationship Specialty Start Date End Date Emerita Falcon MD [address] [place] [address] PCP - General Family Medicine 08/12/23 documented as of this encounter
--- OUTSIDE RECORDS SUMMARY | 2024-08-07 14:40 | XMS_ITS | Encounter Summary ---
Author Organization [facility] Address [facility] [place] [address] Care Team Providers Care Ferryboat Pilot Name Role Phone Emerita Falcon MD Primary Care Provider +1- [phone] Encounter Details Date Type Department Care Team (Late st Contact Info) Description 09/29/2023 Telephone Primary Care at [address] [address] Rosalie Earl Social History Tobacco [...] restrictions or delay of work.. Please advise [phone] [id number] Thank you documented in this encounter Plan of Treatment Not on file documented as of this encounter Visit Diagnoses Not on filedocumented in this encounter Care Teams Ferryboat Pilot Relationship Specialty Start Date End Date Emerita Falcon MD [address] [facility] [place] [address] PCP - General Family Medicine 08/12/23 documented as of this encounter
--- OUTSIDE RECORDS SUMMARY | 2024-08-07 14:40 | XMS_ITS | Encounter Summary ---
Author Organization [facility] Address [facility] [place] [address] Care Team Providers Care No Bake Molder Name Role Phone Emerita Falcon MD Primary Care Provider +1- [phone] Encounter Details Date Type Department Care Team (Late st Contact Info) Description 10/05/2023 Telephone Primary Care at [address] [address] Debby Rasmussen Social History Tobacco Use Types Packs/Day Years Used Date Smoking Tobacco: Former Cigarettes - 2021 Passive Smoke Exposure: Current Smokeless Tobacco: Never Comments:Doesn't smoke durin g the week. 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
--- OUTSIDE RECORDS SUMMARY | 2024-08-07 14:40 | XMS_ITS | Encounter Summary ---
Author Organization [facility] Address One [facility] [place] [address] Care Team Providers Care Search Engine Optimization Strategist Name Role Phone Emerita Falcon MD Primary Care Provider +1- [phone] Reason for Visit * Physical Therapy (Routine) - Closed Specialty Diagnoses / Procedures Referred By Contac t Referred To Contact Physical Therapy Diagnoses Lumbar back pain Amber Eastman, TAX ASSOCIATE [address] [place] [address] [facility] [address] [place] [address] Referral ID Status Reason Start Date Expiration Date V isits Requested Visits Authorized [id number] Closed Evaluate and Treat 07/07/2023 07/06/2024 20 20 Encounter Details Date Type Department Care Team (Late st Contact Info) Description 10/21/2023 3:30 PM EST Office Visit Physical Therapy at [address] [address] Carson Mittal, PT Low back [...] address 1. Low back pain, non-specific Therapy Staple Laster Goals (12 weeks) Patient will: 1. be indep with residential home exercise and/or gym program to sustain [...] non-specific documented in this encounter Care Teams Search Engine Optimization Strategist Relationship Specialty Start Date End Date Emerita Falcon MD [address] [place] [address] PCP - General Family Medicine 08/12/23 documented as of this encounter
--- OUTSIDE RECORDS SUMMARY | 2024-08-07 14:40 | XMS_ITS | Encounter Summary ---
Author Organization [facility] Address One [facility] [place] [address] Care Team Providers Care Rail Director Name Role Phone Emerita Falcon MD Primary Care Provider +1- [phone] Encounter Details Date Type Department Care Team (Latest Contact Info) Description 08/31/2023 Travel Social History Tobacco Use Types Packs/Day Years Used Date Smoking Tobacco: Former Cigarettes 2021 Passive Smoke Exposure: Current Smokeless Tobacco: Never Comments:Doesn't smoke durin g the week. 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
--- OUTSIDE RECORDS SUMMARY | 2024-08-07 14:40 | XMS_ITS | Encounter Summary ---
Author Organization [facility] Address One [facility] [place] [address] Care Team Providers Care Chancellor Name Role Phone Emerita Falcon MD Primary Care Provider +1- [phone] Reason for Visit * Reason Comments Follow-up One week follow up b ack pain. Encounter Details Date Type Department Care Team (Late st Contact Info) Description 08/25/2023 1:10 PM EST Office Visit Primary Care at [facility] [address] [place] [phone] Emerita Falcon MD [address] [facility] [place] [address] Witnessed apneic spells; Tachycardia; Low [...] 7.4 08/19/2023 No results found for: MICROALBUR, [id number] Lipid Panel Lab Results Component Value Date [...] non-specific documented in this encounter Care Teams Chancellor Relationship Specialty Start Date End Date Emerita Falcon MD [address] [place] [address] PCP - General Family Medicine 08/12/23 documented as of this encounter
--- OUTSIDE RECORDS SUMMARY | 2024-08-07 14:40 | XMS_ITS | Encounter Summary ---
Author Organization [facility] Address One [facility] [place] [address] Care Team Providers Care Change Booth Attendant Name Role Phone Emerita Falcon MD Primary Care Provider +1- [phone] Encounter Details Date Type Department Care Team (Latest Contact Info) Description 08/26/2023 2:13 PM EST - 08/26/2023 11:59 PM EST Hospital Encounter Non-Invasive Cardiology at [address] [address] Emerita Falcon MD [address] [place] [id number] Tachycardia Discharge Disposition: Home Social History Tobacco [...] unspecified documented in this encounter Care Teams Change Booth Attendant Relationship Specialty Start Date End Date Emerita Falcon MD [address] [place] [address] PCP - General Family Medicine 08/12/23 documented as of this encounter
--- OUTSIDE RECORDS SUMMARY | 2024-08-07 14:41 | XMS_ITS | Encounter Summary ---
Author Organization [facility] Address [facility] [place] [address] Care Team Providers Care Benefits Advisor Name Role Phone Belkys Houston MD Primary Care Provider [phone] Encounter Details Date Type Department Care Team (Late st Contact Info) Description 07/14/2023 Telephone Primary Care at [address] [address] Olya Urena Social History Tobacco [...] on filedocumented in this encounter Care Teams Benefits Advisor Relationship Specialty Start Date End Date Belkys Houston MD [address] [place] [address] PCP - General Family Medicine 06/21/22 08/11/23 documented as of this encounter
--- OUTSIDE RECORDS SUMMARY | 2024-08-07 14:41 | XMS_ITS | Encounter Summary ---
Author Organization [facility] Address [facility] [place] [address] Care Team Providers Care Office Clin Asst Name Role Phone Belkys Houston MD Primary Care Provider Reason for Visit * Reason Comments Flank Pain Encounter Details Date Type Department Care Team (Late st Contact Info) Description 12/06/2022 8:58 PM EDT - 12/07/2022 1:45 AM EDT Emergency Emergency Department at [address] [address] Mirna Whitfield MD [facility] [address] [place] [address] Flank pain Discharge Disposition: Home Social History [...] of outpatient management including rest, Tylenol/ibuprofen, topical ekpp-bks-edkxbiz lidocaine patches and heat/ice. Recommend close follow-up [...] and family [] family [] EMS [] shelter paperwork [] External records in [facility] reviewed, when available. Additional records obtained from [...] questions please contact the health health care legal assistant that requested your imaging first. Did this [...] questions please contact the health health care legal assistant that requested your imaging first. ? Narrative [...] have questions please contactthe health health care legal assistant that requested your imaging first. Mirna Whitfield MD IMG CT ORDERABLES * Urinalysis with reflex Culture (12/06/2022 11:26 PM EDT) Glucose, Urine Dipstick Negative Negative mg/dL [facility] Protein, Urine Dipstick Negative Negative mg/dL [facility] Bilirubin, Urine Dipstick Negative Negative mg/dL [facility] Comment: Clinical correlation required for positive Urine Bilirubin results as false positive may occur with some drugs and drug related products. If a false positive is suspected a serum total bilirubin should be considered if clinically indicated. Urobilinogen, Urine Dipstick Normal Normal mg/dL [facility] pH, Urn (dipstick) 6.5 5.0 - 8.0 [facility] Blood, Urine Dipstick Negative Negative mg/dL [facility] Ketone, Urine Dipstick Negative Negative mg/dL [facility] Nitrite, Urine Dipstick Negative Negative [facility] Leukocytes, Urine Dipstick Negative Negative mcL [facility] Appearance, Urine Dipstick Clear Clear [facility] Specific [place] Urine Automated 1.021 1.005 - 1.030 [facility] Color, Urine Dipstick Yellow Yellow [facility] Reflex to Culture No [facility] Clean Catch Urine 12/06/2022 11:26 PM EDT 12/06/2022 11:40 PM EDT Narrative Resulting Agency Comment Spec In Lab Mirna Whitfield MD URINE ORDERABLES [facility] [address] [place] [address] * Lipase (12/06/2022 9:17 PM EDT) Lipase 33 0 - 60 unit/L [facility] Blood 12/06/2022 9:17 PM EDT 12/06/2022 9:24 PM EDT Narrative Resulting Agency Comment Spec In Lab Mirna Whitfiedl MD CHEMISTRY ORDERABLE S Performing Organization Address [facility]/ZIP Co de Phone Number [facility] [address] [place] [address] * Blue Tube HOLD (12/06/2022 9:17 PM EDT) Blue Hold Sample in lab. [facility] Blood No Charge / Unknown 12/06/2022 9:17 PM EDT 12/06/2022 9:[address] Lilly HEMATOLOGY ORDERABLE S Performing Organization Address City/[facility]/ZIP Co de Phone Number [facility] [address] [place] [address] * Gold Tube HOLD (12/06/2022 9:17 PM EDT) Gold Hold Sample in lab. [facility] Blood No Charge / Unknown 12/06/2022 9:17 PM EDT 12/06/2022 9:20 PM EDT Lab CHEMISTRY ORDERABLES Performing Organization Address [facility] Co de Phone Number [facility] [address] [place] [address] * (ABNORMAL) Differential, Automated (12/06/2022 9:17 PM EDT) Neutrophil % 75.9 % [facility] Neutrophil Absolute 9.51(H) 1.70 - 6.10 x10(3)/mc L [facility] Lymph % 14.9 % [facility] Lymphocytes Abs 1.9 0.9 - 3.2 x10(3)/mc L [facility] Monocyte % 8.1 % [facility] Monocyte Abs 1.0(H) 0.3 - 0.9 x10(3)/mc L [facility] Eos % 0.5 % [facility] Eosinophils Abs 0.1 0.0 - 0.4 x10(3)/mc L [facility] Basophil % 0.3 % [facility] Baso Absolute 0.0 0.0 - 0.1 x10(3)/mc L [facility] Immature Gran % 0.30 % [facility] Comment: Immature granulocytes(IG's)percentage and absolute count will include metamyelocytes, myelocytes, and promyelocytes. Blood smears from CBCs yielding IG's will be scanned manually for concordance. If this scan disagrees with the automated IG or if promyelocytes are noted, a manual differential will be performed. Immature Gran Absolute 0.04 0.00 - 0.04 x10(3)/mc L [facility] Blood 12/06/2022 9:17 PM EDT 12/06/2022 9:24 PM EDT Narrative Resulting Agency Comment Spec In Lab Mirna Whitfield MD HEMATOLOGY ORDERABL ES Performing Organization Address City/State/[facility] Co de Phone Number [facility] [address] [place], [place] [phone] * (ABNORMAL) Hemogram (12/06/2022 9:17 PM EDT) White Blood Cell 12.5(H) 4.0 - 9.5 x10(3)/mc L [facility] Red Blood Cell 4.56(L) 4.58 - 5.54 x10(6)/mc L [facility] Hemoglobin 14.6 13.7 - 16.5 g/dL [facility] Hematocrit 41.4 40.5 - 48.5 % [facility] Mean Cell Volume 90.8 82.9 - 93.1 fL [facility] Mean Cell Hemoglobin 32.0 27.5 - 32.1 pg [facility] Mean Cell Hemoglobin Concentration 35.3 32.0 - 35.7 g/dL [facility] Platelet 355 145 - 357 x10(3)/mc L [facility] RDW Standard Deviation 41.6 36.0 - 45.0 fL [facility] RDW coefficient of variation 12.5 11.4 - 13.8 % [facility] Mean Platelet Volume 8.6 7.6 - 12.9 fL [facility] NRBC% auto 0.0 % [facility] NRBC Absolute 0.000 0.000 - 0.000 x10(3)/mc L [facility] Blood 12/06/2022 9:17 PM EDT 12/06/2022 9:24 PM EDT Narrative Resulting Agency Comment Spec In Lab Mirna Whitfield MD HEMATOLOGY ORDERABL ES [facility] [address] [place] [address] * (ABNORMAL) Comprehensive metabolic panel (non-fasting) (12/06/2022 9:17 PM EDT) Glucose 106 65 - 199 mg/dL [facility] Comment:Diabetes: >=200 mg/d L plus symptoms Blood Urea Nitrogen 14 10 - 20 mg/dL [facility] Creatinine 1.05 0.80 - 1.50 mg/dL [facility] Sodium 133(L) 135 - 145 mmol/L [facility] Potassium 4.5 3.5 - 5.0 mmol/L [facility] Comment: Please note: ??Patients with WBC >100,000 may have falsely elevated Potassium levels. ??For accurate Potassium quantification in these patients send serum separator tube (gold top) for subsequent determinations. ??Contact the Clinical Chemistry Laboratory if there are any questions. Chloride 97(L) 98 - 107 mmol/L [facility] Carbon Dioxide 23 22 - 31 mmol/L [facility] Anion Gap 13 5 - 15 mmol/L [facility] Calcium 10.3 8.5 - 10.5 mg/dL [facility] Protein, Total 8.0 6.1 - 8.0 g/dL [facility] Albumin 4.5 3.2 - 5.2 g/dL [facility] Aspartate Aminotransferase 33 0 - 39 unit/L [facility] Alanine Aminotransferase 45 0 - 55 unit/L [facility] Alkaline Phosphatase 72 40 - 130 unit/L [facility] Bilirubin, Total 0.9 0.2 - 1.3 mg/dL [facility] Est Glomerular Filtration Rate 89 >=60 mL/min/1. 73 m?? [facility] Comment: This patient's estimated GFR was [...] Lab Mirna Whitfield MD CHEMISTRY ORDERABLE S [facility] [address] [place] [address] documented in this encounter Visit Diagnoses Diagnosis [...] Intravenous, ONCE, 1 dose, On Tue12/06/22 at 1516 0860 (New Bag - Provider: Jacob Rahman, TETE) documented in this encounter Care Teams Office Clin Asst Relationship Specialty Start Date End Date Belkys Houston MD [address] [place] [address] PCP - General Family Medicine 06/21/22 08/11/23 documented as of this encounter
--- OUTSIDE RECORDS SUMMARY | 2024-08-07 14:41 | XMS_ITS | Encounter Summary ---
Author Organization [facility] Address [facility] [place] [address] Care Team Providers Care Floor Care Technician Name Role Phone Belkys Houston MD Primary Care Provider [phone] Encounter Details Date Type Department Care Team (Latest Contact Info) Description 12/06/2022 11:10 PM EDT - 12/06/2022 11:59 PM EDT Hospital Encounter CAT Scan at [address] [address] Discharge Disposition: Home Social [...] mLs documented in this encounter Care Teams Floor Care Technician Relationship Specialty Start Date End Date Belkys Houston MD [address] [place] [address] PCP - General Family Medicine 06/21/22 08/11/23 documented as of this encounter
--- OUTSIDE RECORDS SUMMARY | 2024-08-07 14:41 | XMS_ITS | Encounter Summary ---
Author Organization [facility] Address [facility] [place] [address] Care Team Providers Care Employment Adjudicator Name Role Phone Belkys Houston MD Primary Care Provider [phone] Encounter Details Date Type Department Care Team (Latest Contact Info) Description 06/16/2023 12:45 PM EDT - 06/16/2023 11:59 PM EDT Hospital Encounter XRay at [address] [id number] Amber Eastman N, DISHTANK OPERATOR [address] [place] [phone] Pain and swelling of right lower leg [...] who have questions please contact the health respiratory care practitioner that requested your imaging first. ? Electronically signed by: PRUDENCIO GREEN MD, [facility] ([phone]), at 06/16/2023 2:09 PM Narrative 06/16/2023 2:09 [...] patients who have questions please contactthe health respiratory care practitioner that requested your imaging first. Electronically signed by: PRUDENCIO GREEN MD, [facility] ([phone]), at 06/16/2023 2:09 PM Amber Eastman APRN IMG DX ORDERABLES documented in this encounter Visit Diagnoses Diagnosis Pain and swelling of right lower leg documented in this encounter Care Teams Employment Adjudicator Relationship Specialty Start Date End Date Belkys Houston MD [address] [place] [address] PCP - General Family Medicine 06/21/22 08/11/23 documented as of this encounter
--- OUTSIDE RECORDS SUMMARY | 2024-08-07 14:41 | XMS_ITS | Encounter Summary ---
Author Organization [facility] Address [facility] [place] [address] Care Team Providers Care Supervisor Sample Preparation Name Role Phone Belkys Houston MD Primary Care Provider [phone] Encounter Details Date Type Department Care Team (Late st Contact Info) Description 06/22/2023 Telephone Primary Care at [address] [phone] Nicolette Salgado Social History Tobacco [...] Nicolette Salgado - 06/22/2023 6:36 PM EDT [facility] paperwork dropped off at [facility]. Sent to Forms. documented in this encounter Plan of Treatment Not on file documented as of this encounter Visit Diagnoses Not on filedocumented in this encounter Care Teams Supervisor Sample Preparation Relationship Specialty Start Date End Date Belkys Houston MD [address] [place] [address] PCP - General Family Medicine 06/21/22 08/11/23 documented as of this encounter
--- OUTSIDE RECORDS SUMMARY | 2024-08-07 14:41 | XMS_ITS | Encounter Summary ---
Author Organization [facility] Address [facility] [place] [address] Care Team Providers Care Smoke Chaser Name Role Phone Belkys Houston MD Primary Care Provider [phone] Reason for Referral * High Dollar Medication (Routine) - Closed Specialty Diagnoses / Procedures Referred By Contac t Referred To Contact Orthopaedics Diagnoses Primary osteoarthritis of both knees Procedures Synvisc One Authorization Request (IN CLINIC) TC EUFLEXXA, PER DOSE, INTRA-ARTICULAR INJECTION *SWITCHED TO PREFERRED DRUG, EUFLEXXA PER [facility]* Rhett Rodríguez PA [address] [place] [address] Rhett Rodríguez PA [address] [place] [address] Referral ID Status Reason Start Date Expiration Date V isits Requested Visits Authorized [id number] Closed Consult, Test & Treat 01/07/2023 01/07/2024 3 3 Reason for Visit * Reason Comments Bilateral Knee Pain R>L * Consultation (Routine) - Closed Specialty Diagnoses / Procedures Referred By Contac t Referred To Contact Orthopaedics Diagnoses Chronic pain of left knee Chronic pain of right knee Amber Eastman, DIAMOND [address] [place] [address] [facility] [address] [place] [phone] Referral ID Status Reason Start Date Expiration Date V isits Requested Visits Authorized [id number] Closed Consult, Test & Treat 12/17/2022 12/17/2023 1 1 Encounter Details Date Type Department Care Team (Latest Contact Info) Description 01/07/2023 4:00 PM EDT Office Visit Orthopaedics at [address] [phone] Rhett Rodríguez PA [address] [place] [address] [place] [address] Primary osteoarthritis of both knees [...] his discomfort. Past Medical History: Medications 12/17/22 3829 Medication Sig Taking? diclofenac (Voltaren) 1 % [...] DIAGNOSTIC performed by Maite Barraza MD at [facility] ??? PRO UPPER GI ENDOSCOPY, DIAGNOSTIC N/A 10/25/2022 EGD, UPPER GI ENDOSCOPY performed by Maite Barraza MD at [facility] Allergies Allergen Reactions ??? Bactrim [Sulfamethoxazole-Trimethoprim] [...] leg documented in this encounter Care Teams Smoke Chaser Relationship Specialty Start Date End Date Belkys Houston MD [address] [place] [address] [place] [address] PCP - General Family Medicine 06/21/22 08/11/23 documented as of this encounter
--- OUTSIDE RECORDS SUMMARY | 2024-08-07 14:41 | XMS_ITS | Encounter Summary ---
Author Organization [facility] Address [facility] [place] [address] Care Team Providers Care Merchandise Stocker Name Role Phone Belkys Houston MD Primary Care Provider [phone] Reason for Referral * Diagnostic Test (STAT) - Closed Specialty Diagnoses / Procedures Referred By Contac t Referred To Contact Diagnoses Right calf pain Procedures Vascular Imaging Venous Lower Extremity Unilateral Amber Eastman APRN [address] [place] [address] [facility] [address] [place] [address] Referral ID Status Reason Start Date Expiration Date V isits Requested Visits Authorized [id number] Closed Specialty Service Requested 06/16/2023 12/14/2024 1 1 Reason for Visit * Diagnostic Test (STAT) - Closed Specialty Diagnoses / Procedures Referred By Contac t Referred To Contact Diagnoses Right calf pain Procedures Vascular Imaging Venous Lower Extremity Unilateral Amber Eastman, MEDICAL STAFF CREDENTIALING COORDINATOR [address] [place] [address] [facility] [address] [place] [address] Referral ID Status Reason Start Date Expiration Date V isits Requested Visits Authorized [id number] Closed Specialty Service Requested 06/16/2023 12/14/2024 1 1 Encounter Details Date Type Department Care Team (Latest Contact Info) Description 06/16/2023 10:55 AM EDT - 06/16/2023 12:29 PM EDT Hospital Encounter Ultrasound at [facility] [address] [phone] Amber Eastman, MEDICAL STAFF CREDENTIALING COORDINATOR [address] [place] [address] Right calf pain Discharge Disposition: Home Social [...] who have questions please contact the health resident care technician that requested your imaging first. ? Electronically signed by: DANIELE JOSEPH MD, [facility] ([phone]), at 06/16/2023 11:39 AM Narrative 06/16/2023 11:39 [...] patients who have questions please contactthe health resident care technician that requested your imaging first. Electronically signed by: DANIELE JOSEPH MD, [facility]([phone]), at 06/16/2023 11:39 AM Amber Eastman APRN IMG AFFIL VASCULAR ORDERABLES * SCAN DOC: VASCULAR STUDY (06/16/2023 12:00 AM EDT) Anatomical Region Laterality Modality VASC Narrative 06/16/2023 12:00 AM EDT Ordered by an unspecified provider. Scanning Provider MEDIA MGR SCAN EXT O RDR/RSLT documented in this encounter Visit Diagnoses Diagnosis Right calf pain documented in this encounter Care Teams Merchandise Stocker Relationship Specialty Start Date End Date Belkys Houston MD [address] [place] [address] PCP - General Family Medicine 06/21/22 08/11/23 documented as of this encounter
--- OUTSIDE RECORDS SUMMARY | 2024-08-07 14:41 | XMS_ITS | Encounter Summary ---
Author Organization [facility] Address [facility] [place] [address] Care Team Providers Care Clinical Resource Nurse Name Role Phone Emerita Falcon MD Primary Care Provider [phone] Encounter Details Date Type Department Care Team [...] on filedocumented in this encounter Care Teams Clinical Resource Nurse Relationship Specialty Start Date End Date Emerita Falcon MD [address] [place] [address] PCP - General Family Medicine 08/12/23 documented as of this encounter
--- OUTSIDE RECORDS SUMMARY | 2024-08-07 14:41 | XMS_ITS | Encounter Summary ---
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
--- OUTSIDE RECORDS SUMMARY | 2024-08-07 14:41 | XMS_ITS | Encounter Summary ---
Author Organization [facility] Address [facility] [place] [address] Care Team Providers Care Wearing Apparel Presser Name Role Phone Belkys Houston MD Primary Care Provider [phone] Encounter Details Date Type Department Care Team [...] on filedocumented in this encounter Care Teams Wearing Apparel Presser Relationship Specialty Start Date End Date Belkys Houston MD [address] [place] [address] PCP - General Family Medicine 06/21/22 08/11/23 documented as of this encounter
--- OUTSIDE RECORDS SUMMARY | 2024-08-07 14:41 | XMS_ITS | Encounter Summary ---
Author Organization [facility] Address [facility] [place] [address] Care Team Providers Care Margin Trimmer Name Role Phone Belkys Houston MD Primary Care Provider [phone] Encounter Details Date Type Department Care Team (Latest Contact Info) Description 06/08/2023 6:39 PM EDT Hospital Encounter XRay at [address] [phone] Destinee Escamilla, HARNESS MENDER [address] [place] [address] Pain in right hip Discharge Disposition: [...] who have questions please contact the health tire care manager that requested your imaging first. ? Electronically signed by: DANIELE JOSEPH MD, [facility] ([phone]), at 06/09/2023 7:37 AM Narrative 06/09/2023 7:37 [...] patients who have questions please contactthe health tire care manager that requested your imaging first. Electronically signed by: DANIELE JOSEPH MD, [facility]([phone]), at 06/09/2023 7:37 AM Destinee Escamilla APRN IMG DX ORDERABLES documented in this encounter Visit Diagnoses Diagnosis Pain in right hip Pain in joint, pelvic region and thigh documented in this encounter Care Teams Margin Trimmer Relationship Specialty Start Date End Date Belkys Houston MD [address] [place] [address] PCP - General Family Medicine 06/21/22 08/11/23 documented as of this encounter
--- OUTSIDE RECORDS SUMMARY | 2024-08-07 14:41 | XMS_ITS | Encounter Summary ---
Author Organization [facility] Address [facility] [place] [address] Care Team Providers Care Paper Final Inspector Name Role Phone Belkys Houston MD Primary Care Provider [phone] Reason for Visit * Reason Comments Follow-up Pain Encounter Details Date Type Department Care Team (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
--- OUTSIDE RECORDS SUMMARY | 2024-08-07 14:41 | XMS_ITS | Encounter Summary ---
Author Organization [facility] Address [facility] [place] [address] Care Team Providers Care Invoicing Machine Operator Name Role Phone Belkys Houston MD Primary Care Provider [phone] Encounter Details Date Type Department Care Team ([facility] st Contact Info) Description 06/08/2023 4:40 PM EDT Office Visit Primary Care at [address] [address] Destinee Escamilla, FIRER ELECTRIC LOCOMOTIVE [address] [place] [address] Fatigue, unspecified type; Pain in right [...] this encounter Progress Notes * Destinee Escamilla, FIRER ELECTRIC LOCOMOTIVE - 06/08/2023 4:40 PM EDT Subjective: Patient [...] Results (from the past 24 hour(s)) TSH [place] Result Value Ref Range TSH 0.94 0.27 [...] Avg Gluc 117 mg/dL COVID-19 PCR Saliva ([place]) Specimen: Saliva Symptoms->Fever / Respiratory Symptoms Result [...] type - CBC (with Diff) - TSH [place] - CRP, acute inflammation - Comprehensive metabolic panel (non-fasting) - Cancel: Hemoglobin A1c; Future - Hemoglobin A1c - Lyme IgG & IgM Antibody - COVID-19 Flu A/B and RSV PCR ([place]) - POC Urine dipstick (Automated)_URGENT VISITS ONLY; Future - COVID-19 PCR Saliva ([place]) Pain in right hip - CBC (with [...] questions please contact the health child care counselor that requested your imaging first. ? Electronically signed by: DANIELE JOSEPH MD, [facility] ([phone]), at 06/09/2023 7:37 AM Narrative 06/09/2023 7:37 [...] have questions please contactthe health child care counselor that requested your imaging first. Electronically signed by: DANIELE JOSEPH MD, [facility]([phone]), at 06/09/2023 7:37 AM Destinee Escamilla FIRER ELECTRIC LOCOMOTIVE IMG DX ORDERABLES * XR Pelvis and [...] questions please contact the health child care counselor that requested your imaging first. ? Electronically signed by: DANIELE JOSEPH MD, [facility] ([phone]), at 06/09/2023 7:58 AM Narrative 06/09/2023 7:58 [...] have questions please contactthe health child care counselor that requested your imaging first. Electronically signed by: DANIELE JOSEPH MD, [facility]([phone]), at 06/09/2023 7:58 AM Destinee Escamilla FIRER ELECTRIC LOCOMOTIVE IMG DX ORDERABLES * COVID-19 PCR Saliva ([place]) (06/08/2023 6:35 PM EDT) SARS-CoV-2 PCR, Saliva Not Detected Not Detected [facility] Comment: This result should be interpreted in combination with the clinical observations, patient history and epidemiological information. Testing for SARS-CoV-2 (Severe acute respiratory syndrome coronavirus 2, formerly known as 2019 novel coronavirus or 2019-nCoV) to aid in the diagnosis of COVID-19 is performed using a Real Time Reverse Transcriptase (RT-PCR) method with the BIO-RAD BrandfolderX96. ??This method was established and validated by the [employer], Department of Epidemiology of Microbial Diseases, that includes the Clinical Molecular Diagnostics Laboratory, Department of Pathology, [facility], located at [address] [place] [address], that are also certified under the Clinical Laboratory Improvement Amendments of 1988 (CLIA '88), 42 U.S.C. section 263a and meet the requirements to perform high complexity tests. ??RT-PCR CoV-2 EUA assay is intended for In-vitro Diagnostic (IVD) use with saliva specimens collected from individuals meeting the CDC criteria for testing. The RT-PCR assay is performed based on the instructions for use provided by [facility]. Testing is performed in the Microbiology Laboratory at [facility], certified under the Clinical Laboratory [...] fact sheets at the following FDA website: https://www.fda.gov/medical-devices/vticbkrlunm-xximcdy-3846-ridvp-70-mmftsuexz- use-a acsmiaxfxxnjz-gqiskci-ufvpnwq/sxmhu-ojqapsgnnci-rxrv Saliva 06/08/2023 6:35 PM EDT 06/08/2023 6:52 PM EDT Comment:Symptoms->Fever / Re spiratory Symptoms Narrative Resulting Agency Comment Spec In Lab Destinee K Patek FIRER ELECTRIC LOCOMOTIVE MICROBIOLOGY - GEN ERAL ORDERABLES Performing Organization Address [facility] Co de Phone Number [facility] [address] [place] [address] * Lyme IgG & IgM Antibody (06/08/2023 6:22 PM EDT) Pathologist [facility] Lyme Antibody Negative Negative [facility] Lyme Ab Comment Negative result does not exclude possibility of infection. [facility] Comment: Please note that as of 01/25/2023 that this testing is performed by the Special Chemistry Laboratory at [facility]. This change in testing location is associated with a change in testing methodology. Blood 06/08/2023 6:22 PM EDT 06/10/2023 7:20 AM EDT Narrative Resulting Agency Comment Spec In Lab Destinee Escamilla FIRER ELECTRIC LOCOMOTIVE IMMUNOLOGY ORDERAB LES Performing Organization Address [facility] Co de Phone Number [facility] [place] [address] * (ABNORMAL) Hemoglobin A1c (06/08/2023 6:22 PM EDT) Pathologist [facility] Hemoglobin A1c 5.7(H) 4.3 - 5.6 % [facility] Estimated Average Glucose 117 mg/dL [facility] Blood 06/08/2023 6:22 PM EDT 06/08/2023 6:51 PM EDT Narrative Resulting Agency Comment Spec In Lab Destinee Escamilla FIRER ELECTRIC LOCOMOTIVE CHEMISTRY ORDERABL ES Performing Organization Address [facility] Co de Phone Number [facility] [address] [place] [address] * Differential, Automated (06/08/2023 6:22 PM EDT) Pathologist [facility] Neutrophil % 65.1 % [facility] Neutrophil Absolute 5.50 1.70 - 6.10 x10(3)/[facility] Lymph % 25.9 % [facility] Lymphocytes Abs 2.2 0.9 - 3.2 x10(3)/[facility] Monocyte % 6.2 % [facility] Monocyte Abs 0.5 0.3 - 0.9 x10(3)/[facility] Eos % 1.9 % [facility] Eosinophils Abs 0.2 0.0 - 0.4 x10(3)/[facility] Basophil % 0.5 % [facility] Baso Absolute 0.0 0.0 - 0.1 x10(3)/[facility] Immature Gran % 0.40 % [facility] Comment: Immature granulocytes(IG's)percentage and absolute count will include metamyelocytes, myelocytes, and promyelocytes. Blood smears from CBCs yielding IG's will be scanned manually for concordance. If this scan disagrees with the automated IG or if promyelocytes are noted, a manual differential will be performed. Immature Gran Absolute 0.03 0.00 - 0.04 x10(3)/[facility] Blood 06/08/2023 6:22 PM EDT 06/08/2023 6:51 PM EDT Narrative Resulting Agency Comment Spec In Lab Destinee Escamilla FIRER ELECTRIC LOCOMOTIVE HEMATOLOGY ORDERAB LES Performing Organization Address City/State/[place] Co de Phone Number [facility] [address] [place] [address] * Hemogram (06/08/2023 6:22 PM EDT) White Blood Cell 8.4 4.0 - 9.5 x10(3)/[facility] Red Blood Cell 5.11 4.58 - 5.54 x10(6)/[facility] Hemoglobin 16.0 13.7 - 16.5 g/dL [facility] Hematocrit 46.3 40.5 - 48.5 % [facility] Mean Cell Volume 90.6 82.9 - 93.1 fL [facility] Mean Cell Hemoglobin 31.3 27.5 - 32.1 pg [facility] Mean Cell Hemoglobin Concentration 34.6 32.0 - 35.7 g/dL [facility] Platelet 346 145 - 357 x10(3)/[facility] RDW Standard Deviation 43.0 36.0 - 45.0 fL [facility] RDW coefficient of variation 13.0 11.4 - 13.8 % [facility] Mean Platelet Volume 8.8 7.6 - 12.9 fL [facility] NRBC% auto 0.0 % [facility] NRBC Absolute 0.000 0.000 - 0.000 x10(3)/mcL [facility] Blood 06/08/2023 6:22 PM EDT 06/08/2023 6:51 PM EDT Narrative Resulting Agency Comment Spec In Lab Destinee Escamilla FIRER ELECTRIC LOCOMOTIVE HEMATOLOGY ORDERAB LES [facility] [address] [place] [address] * Comprehensive metabolic panel (non-fasting) (06/08/2023 6:22 PM EDT) Glucose 103 65 - 199 mg/dL [facility] Comment:Diabetes: >=200 mg/d L plus symptoms Blood Urea Nitrogen 11 10 - 20 mg/dL [facility] Creatinine 1.14 0.80 - 1.50 mg/dL [facility] Sodium 139 135 - 145 mmol/L [facility] Potassium 3.9 3.5 - 5.0 mmol/L [facility] Comment: Please note: ??Patients with WBC >100,000 may have falsely elevated Potassium levels. ??For accurate Potassium quantification in these patients send serum separator tube (gold top) for subsequent determinations. ??Contact the Clinical Chemistry Laboratory if there are any questions. Chloride 102 98 - 107 mmol/L [facility] Carbon Dioxide 23 22 - 31 mmol/L [facility] Anion Gap 14 5 - 15 mmol/L [facility] Calcium 9.6 8.5 - 10.5 mg/dL [facility] Protein, Total 7.3 6.1 - 8.0 g/dL [facility] Albumin 4.1 3.2 - 5.2 g/dL [facility] Aspartate Aminotransferase 34 0 - 39 unit/L [facility] Alanine Aminotransferase 40 0 - 55 unit/L [facility] Alkaline Phosphatase 80 40 - 130 unit/L [facility] Bilirubin, Total 0.5 0.2 - 1.3 mg/dL [facility] Est Glomerular Filtration Rate 80 >=60 mL/min/1. 73 m?? [facility] Comment: This patient's estimated GFR [...] DANGN CHEMISTRY ORDERABL ES Performing Organization Address [facility] Co de Phone Number [facility] [address] [place] [address] * CRP, acute inflammation (06/08/2023 6:22 PM EDT) C-Reactive Protein 3.9 <=4.9 mg/L [facility] Blood 06/08/2023 6:22 PM EDT 06/08/2023 6:51 PM EDT Narrative Resulting Agency Comment Spec In Lab Destinee Tanner Francine DANGN CHEMISTRY ORDERABL ES Performing Organization Address [facility] de Phone Number [facility] [address] [place] [address] * TSH [place] (06/08/2023 6:22 PM EDT) Thyroid Stimulating Hormone 0.94 0.27 - 4.20 mcIU/mL [facility] Comment: Reference Interval (mcIU/mL): Females: ??First Trimester: 0.23-3.88 ??Second Trimester: 0.22-3.90 ??Third Trimester: 0.44-4.66 Blood 06/08/2023 6:22 PM EDT 06/08/2023 6:51 PM EDT Narrative Resulting Agency Comment Spec In Lab Destinee Tanner Francine DANGN CHEMISTRY ORDERABL ES Performing Organization Address [facility] Co de Phone Number [facility] [address] [place] [address] * POCT urine dipstick (06/08/2023) POC Sp [place] 1.005 1.002 - 1.030 POC pH, UA [...] thigh documented in this encounter Care Teams Invoicing Machine Operator Relationship Specialty Start Date End Date Belkys Houston MD [address] [place] [address] PCP - General Family Medicine 06/21/22 08/11/23 documented as of this encounter
--- OUTSIDE RECORDS SUMMARY | 2024-08-07 14:41 | XMS_ITS | Encounter Summary ---
Author Organization [facility] Address [facility] [place] [address] Care Team Providers Care Home Visitor Home Base Head Start Name Role Phone Belkys Houston MD Primary Care Provider [phone] Encounter Details Date Type Department Care Team (Latest Contact Info) Description 06/16/2023 12:00 PM EDT Laboratory Appointment Lab at [address] [address] Pain and swelling of right [...] 11:37 AM EDT) Neutrophil % 64.4 % [facility] Neutrophil Absolute 6.15(H) 1.70 - 6.10 x10(3)/mc L [facility] Lymph % 25.7 % [facility] Lymphocytes Abs 2.4 0.9 - 3.2 x10(3)/mc L [facility] Monocyte % 6.0 % [facility] Monocyte Abs 0.6 0.3 - 0.9 x10(3)/mc L [facility] Eos % 2.7 % [facility] Eosinophils Abs 0.3 0.0 - 0.4 x10(3)/mc L [facility] Basophil % 0.6 % [facility] Baso Absolute 0.1 0.0 - 0.1 x10(3)/mc L [facility] Immature Gran % 0.60 % [facility] Comment: Immature granulocytes(IG's)percentage and absolute count will include metamyelocytes, myelocytes, and promyelocytes. Blood smears from CBCs yielding IG's will be scanned manually for concordance. If this scan disagrees with the automated IG or if promyelocytes are noted, a manual differential will be performed. Immature Gran Absolute 0.06(H) 0.00 - 0.04 x10(3)/mc L [facility] Blood 06/16/2023 11:3 7 AM EDT 06/16/2023 11:37 AM EDT Narrative Resulting Agency Comment Spec In Lab Amber Eastman APRN HEMATOLOGY ORDERABL ES [facility] [address] [place] [address] * (ABNORMAL) Hemogram (06/16/2023 11:37 AM EDT) White Blood Cell 9.6(H) 4.0 - 9.5 x10(3)/mc L [facility] Red Blood Cell 5.12 4.58 - 5.54 x10(6)/mc L [facility] Hemoglobin 16.0 13.7 - 16.5 g/dL [facility] Hematocrit 46.5 40.5 - 48.5 % [facility] Mean Cell Volume 90.8 82.9 - 93.1 fL [facility] Mean Cell Hemoglobin 31.3 27.5 - 32.1 pg [facility] Mean Cell Hemoglobin Concentration 34.4 32.0 - 35.7 g/dL [facility] Platelet 324 145 - 357 x10(3)/mc L [facility] RDW Standard Deviation 43.6 36.0 - 45.0 fL [facility] RDW coefficient of variation 13.0 11.4 - 13.8 % [facility] Mean Platelet Volume 8.9 7.6 - 12.9 fL [facility] NRBC% auto 0.0 % [facility] NRBC Absolute 0.000 0.000 - 0.000 x10(3)/mc L [facility] Blood 06/16/2023 11:3 7 AM EDT 06/16/2023 11:37 AM EDT Narrative Resulting Agency Comment Spec In Lab Amber Eastman ASSOCIATE TECHNICIAN HEMATOLOGY ORDERABL ES Performing Organization Address [facility] Co de Phone Number [facility] [address] [place] [address] * (ABNORMAL) Uric acid (06/16/2023 11:37 AM EDT) Uric Acid 9.8(H) 3.5 - 8.5 mg/dL [facility] Blood 06/16/2023 11:3 7 AM EDT 06/16/2023 11:37 AM EDT Narrative Resulting Agency Comment Spec In Lab Amber Eastman APRN CHEMISTRY ORDERABLE S Performing Organization Address [facility] Co de Phone Number [facility] [address] [place] [address] documented in this encounter Visit Diagnoses Diagnosis Pain and swelling of right lower leg documented in this encounter Care Teams Home Visitor Home Base Head Start Relationship Specialty Start Date End Date Belkys Houston MD [address] [place] [address] PCP - General Family Medicine 06/21/22 08/11/23 documented as of this encounter
--- OUTSIDE RECORDS SUMMARY | 2024-08-07 14:41 | XMS_ITS | Encounter Summary ---
Author Organization [facility] Address [facility] [place] [address] Care Team Providers Care Chemical Engineering Professor Name Role Phone Belkys Houston MD Primary Care Provider [phone] Encounter Details Date Type Department Care Team (Late st Contact Info) Description 12/12/2022 Telephone Primary Care at [address] [address] Poonam Simmons APRN [facility] [place] [address] Social History Tobacco Use Types [...] on filedocumented in this encounter Care Teams Chemical Engineering Professor Relationship Specialty Start Date End Date Belkys Houston MD [address] [place] [address] [place] [address] PCP - General Family Medicine 06/21/22 08/11/23 documented as of this encounter
--- OUTSIDE RECORDS SUMMARY | 2024-08-07 14:41 | XMS_ITS | Encounter Summary ---
Author Organization [facility] Address [facility] [place] [address] Care Team Providers Care Biometric Screener Name Role Phone Belkys Houston MD Primary Care Provider [phone] Encounter Details Date Type Department Care Team [...] on filedocumented in this encounter Care Teams Biometric Screener Relationship Specialty Start Date End Date Belkys Houston MD [address] [place] [address] PCP - General Family Medicine 06/21/22 08/11/23 documented as of this encounter
--- OUTSIDE RECORDS SUMMARY | 2024-08-07 14:41 | XMS_ITS | Encounter Summary ---
Author Organization [facility] Address [facility] [place] [address] Care Team Providers Care Tractor Engine Mechanic Name Role Phone Belkys Houston MD Primary Care Provider [phone] Encounter Details Date Type Department Care Team [...] on filedocumented in this encounter Care Teams Tractor Engine Mechanic Relationship Specialty Start Date End Date Belkys Houston MD [address] [place] [address] PCP - General Family Medicine 06/21/22 08/11/23 documented as of this encounter
--- OUTSIDE RECORDS SUMMARY | 2024-08-07 14:41 | XMS_ITS | Encounter Summary ---
Author Organization [facility] Address [facility] [place] [address] Care Team Providers Care [employer] Task Force Planners Name Role Phone Belkys Houston MD Primary Care Provider [phone] Encounter Details Date Type Department Care Team (Latest Contact Info) Description 12/17/2022 2:26 PM EDT - 12/17/2022 11:59 PM EDT Hospital Encounter XRay at [address] [phone] Amber Eastman N, VETERINARY SURGERY TECHNICIAN [address] [place] [address] [phone] Chronic pain of left knee; Chronic pain [...] who have questions please contact the health personal care aide that requested your imaging first. ? Electronically signed by: PRUDENCIO GREEN MD, [facility] ([phone]), at 12/17/2022 2:42 PM Narrative 12/17/2022 2:42 [...] patients who have questions please contactthe health personal care aide that requested your imaging first. Electronically signed by: PRUDENCIO GREEN MD, [facility] ([phone]), at 12/17/2022 2:42 PM Amber Eastman VETERINARY SURGERY TECHNICIAN IMG DX ORDERABLES documented in this encounter Visit Diagnoses Diagnosis Chronic pain of left knee Pain in joint, lower leg Chronic pain of right knee documented in this encounter Care Teams [employer] Planners Relationship Specialty Start Date End Date Belkys Houston MD [address] [place] [address] PCP - General Family Medicine 06/21/22 08/11/23 documented as of this encounter
--- OUTSIDE RECORDS SUMMARY | 2024-08-07 14:41 | XMS_ITS | Encounter Summary ---
Author Organization [facility] Address [facility] [place] [address] Care Team Providers Care Extended Day Teacher Name Role Phone Belkys Houston MD Primary Care Provider [phone] Encounter Details Date Type Department Care Team ([facility] st Contact Info) Description 06/16/2023 8:25 AM EDT Office Visit Primary Care at [address] [address] Amber Eastman, DIAMOND [address] [place] [phone] No-show for appointment Social History Tobacco Use [...] appointment documented in this encounter Care Teams Extended Day Teacher Relationship Specialty Start Date End Date Belkys Houston MD [address] [place] [address] PCP - General Family Medicine 06/21/22 08/11/23 documented as of this encounter
--- OUTSIDE RECORDS SUMMARY | 2024-08-07 14:41 | XMS_ITS | Encounter Summary ---
Author Organization [facility] Address [facility] [place] [address] Care Team Providers Care Molding Line Assistant Name Role Phone Belkys Houston MD Primary Care Provider [phone] Encounter Details Date Type Department Care Team [...] on filedocumented in this encounter Care Teams Molding Line Assistant Relationship Specialty Start Date End Date Belkys Houston MD [address] [place] [address] PCP - General Family Medicine 06/21/22 08/11/23 documented as of this encounter
--- OUTSIDE RECORDS SUMMARY | 2024-08-07 14:41 | XMS_ITS | Encounter Summary ---
Author Organization [facility] [place] [address] Care Team Providers Care Wiping Cloth Cutter Name Role Phone Emerita Falcon MD Primary Care Provider [phone] Reason for Visit * Reason Onset Date Comments Medication Refill 08/14/2023 Encounter Details Date Type Department Care Team ([facility] st Contact Info) Description 08/14/2023 Refill Primary Care at [address] [phone] Jose L Hector, CRIMP SETTER [address] [place] [address] Lumbar radiculopathy, right Social History [...] right documented in this encounter Care Teams Wiping Cloth Cutter Relationship Specialty Start Date End Date Emerita Falcon MD [address] [place] [address] PCP - General Family Medicine 08/12/23 documented as of this encounter
--- OUTSIDE RECORDS SUMMARY | 2024-08-07 14:41 | XMS_ITS | Encounter Summary ---
Author Organization [facility] [address] Care Team Providers Care Family Court Justice Name Role Phone Belkys Houston MD Primary Care Provider [phone] Reason for Referral * Consultation (Routine) - Closed Specialty Diagnoses / Procedures Referred By Contac t Referred To [facility] Diagnoses Bulging lumbar disc Amber Eastman APRN [address] [place] [address] [facility] [place] [address] Referral ID Status Reason Start Date Expiration Date V isits Requested Visits Authorized [id number] Closed Consult, Test & Treat 07/28/2023 07/27/2024 1 1 Reason for Visit * Reason Comments Follow-up Encounter Details Date Type Department Care Team ([facility] Contact Info) Description 07/28/2023 3:55 PM EST Office Visit Primary Care at [address] [address] Amber Eastman APRN [address] [place] [address] Lumbar radiculopathy, right; Bulging lumbar disc; [...] this encounter Progress Notes * Amber Eastman, ORACLE DATABASE DEVELOPER - 07/28/2023 3:55 PM EST ID: [email or web address] [...] pain. This note was partially generated using [place]. com. cn voice recognition system, and there may be [...] type documented in this encounter Care Teams Family Court Justice Relationship Specialty Start Date End Date Belkys Houston MD [address] [place] [address] [place] [address] PCP - General Family Medicine 06/21/22 08/11/23 documented as of this encounter
--- OUTSIDE RECORDS SUMMARY | 2024-08-07 14:41 | XMS_ITS | Encounter Summary ---
Author Organization [facility] Address [facility] [place] [address] Care Team Providers Care Highway Patrol Pilot Name Role Phone Belkys Houston MD Primary Care Provider [phone] Encounter Details Date Type Department Care Team [...] on filedocumented in this encounter Care Teams Highway Patrol Pilot Relationship Specialty Start Date End Date Belkys Houston MD [address] [place] [address] PCP - General Family Medicine 06/21/22 08/11/23 documented as of this encounter
--- OUTSIDE RECORDS SUMMARY | 2024-08-07 14:41 | XMS_ITS | Encounter Summary ---
Author Organization [facility] Address [facility] [place] [address] Care Team Providers Care Survey Statistician Name Role Phone Belkys Houston MD Primary Care Provider [phone] Reason for Referral * Diagnostic Test (STAT) - Closed Specialty Diagnoses / Procedures Referred By Greg t Referred To Contact Diagnoses Right calf pain Procedures Vascular Imaging Venous Lower Extremity Unilateral Amber Eastman APRN [address] [place] [address] [facility] [address] [place] [address] Referral ID Status Reason Start Date Expiration Date V isits Requested Visits Authorized [id number] Closed Specialty Service Requested 06/16/2023 12/14/2024 1 1 Reason for Visit * Reason Comments Leg And Foot Pain Encounter Details Date Type Department Care Team ([facility] Contact Info) Description 06/16/2023 10:30 AM EDT Office Visit Primary Care at [address] [address] Amber Eastman APRN [address] [place] [address] Right calf pain; Pain and [...] this encounter Progress Notes * Amber Eastman, CADDY PACKER - 06/16/2023 10:30 AM EDT ID: [email or web address] [...] 39 cm. Wells' Criteria for DVT from [email or web address] on 06/16/2023 RESULT SUMMARY: 3 points High [...] sleep. This note was partially generated using [employer] voice recognition system, and there may be [...] questions please contact the health home care specialist that requested your imaging first. ? Electronically signed by: PRUDENCIO GREEN MD, [facility] ([phone]), at 06/16/2023 2:08 PM Narrative 06/16/2023 2:08 [...] have questions please contactthe health home care specialist that requested your imaging first. Electronically signed by: PRUDENCIO GREEN MD, [facility] ([phone]), at 06/16/2023 2:08 PM Amber Jamessonu DANGN [...] questions please contact the health home care specialist that requested your imaging first. ? Electronically signed by: PRUDENCIO GREEN MD, [facility] ([phone]), at 06/16/2023 2:09 PM Narrative 06/16/2023 2:09 [...] have questions please contactthe health home care specialist that requested your imaging first. Electronically signed by: PRUDENCIO GREEN MD, [facility] ([phone]), at 06/16/2023 2:09 PM Amber Eastman APRN IMG DX ORDERABLES * (ABNORMAL) Uric acid (06/16/2023 11:37 AM EDT) Uric Acid 9.8(H) 3.5 - 8.5 mg/dL [facility] Blood 06/16/2023 11:3 7 AM EDT 06/16/2023 11:37 AM EDT Narrative Resulting Agency Comment Spec In Lab Amber Eastman APRN CHEMISTRY ORDERABLE S [facility] [address] [place] [address] * Vascular Imaging Venous Lower Extremity Unilateral [...] questions please contact the health home care specialist that requested your imaging first. ? Electronically signed by: DANIELE JOSEPH MD, [facility] ([phone]), at 06/16/2023 11:39 AM Narrative 06/16/2023 11:39 [...] have questions please contactthe health home care specialist that requested your imaging first. Electronically signed by: DANIELE JOSEPH MD, [facility]([phone]), at 06/16/2023 11:39 AM Amber Abdi Raiza DIAMOND IMG AFFIL VASCULAR ORDERABLES documented in this encounter Visit Diagnoses Diagnosis Right calf pain Pain and swelling of right lower leg Gout of right ankle, unspecified cause, unspecified chronicity Hypertension, unspecified type Right calf pain Pain and swelling of right lower leg Pain and swelling of right lower leg documented in this encounter Care Teams Survey Statistician Relationship Specialty Start Date End Date Belkys Houston MD [address] [place] [address] PCP - General Family Medicine 06/21/22 08/11/23 documented as of this encounter
--- OUTSIDE RECORDS SUMMARY | 2024-08-07 14:41 | XMS_ITS | Encounter Summary ---
Author Organization [facility] Address [facility] [place] [address] Care Team Providers Care Security System Installer Name Role Phone Belkys Houston MD Primary Care Provider Reason for Referral * Physical Therapy (Routine) - Closed Specialty Diagnoses / Procedures Referred By Contmaryjo t Referred To Contact Physical Therapy Diagnoses Lumbar back pain Amber Eastman APRN [address] [place] [address] [facility] Pt [facility] [address] [place] [address] Referral ID Status Reason Start Date Expiration Date V isits Requested Visits Authorized [id number] Closed Evaluate and Treat 07/07/2023 07/06/2024 20 20 Reason for Visit * Reason Comments Follow-up 3 week follow up Hip Pain Encounter Details Date Type Department Care Team ([facility] st Contact Info) Description 07/07/2023 2:15 PM EDT Office Visit Primary Care at [address] [address] Amber Eastman APRN [address] [place] [address] Lumbar back pain; Hypertension, unspecified type; [...] through Care Everywhere. * Piriformis Syndrome: Exercises (Occitan) documented in this encounter Progress Notes * Amber Eastman APRN - 07/07/2023 2:15 PM EDT Images from the original note were not included. ID: [email or web address] Rivers is a 47 y.o. male Assessment/Plan: 1. Lumbar back pain Patient reports that he hurt his back at work approximately 2 to 3 days ago. 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 This note was partially generated using [employer] voice recognition system, and there may be [...] chronicity documented in this encounter Care Teams Security System Installer Relationship Specialty Start Date End Date Belkys Houston MD [address] [place] [address] PCP - General Family Medicine 06/21/22 08/11/23 documented as of this encounter
--- OUTSIDE RECORDS SUMMARY | 2024-08-07 14:41 | XMS_ITS | Encounter Summary ---
Author Organization [facility] Address [facility] [place] [address] Care Team Providers Care Literacy Consultant Name Role Phone Emerita Falcon MD Primary Care Provider [phone] Reason for Visit * Reason Comments Back Pain Follow up back pain- STD Encounter Details Date Type Department Care Team (Late st Contact Info) Description 08/18/2023 4:30 PM EST Office Visit Primary Care at [facility] [address] [place] [address] Emerita Falcon MD [address] [facility] [place] [address] Low back pain, non-specific; Tachycardia [...] 7.3 06/08/2023 No results found for: MICROALBUR, [id number] Lipid Panel Lab Results Component Value Date [...] AM EST) C-Reactive Protein <3.0 <=4.9 mg/L [facility] Blood 08/19/2023 11:3 3 AM EST 08/19/2023 11:33 AM EST Narrative Resulting Agency Comment Spec In Lab Emerita Falcon MD CHEMISTRY ORDERABL ES [facility] [address] [place] [address] * (ABNORMAL) Comprehensive metabolic panel (non-fasting) (08/19/2023 11:33 AM EST) Glucose 98 65 - 199 mg/dL [facility] Comment:Diabetes: >=200 mg/d L plus symptoms Blood Urea Nitrogen 16 10 - 20 mg/dL [facility] Creatinine 1.30 0.80 - 1.50 mg/dL [facility] Sodium 138 135 - 145 mmol/L [facility] Potassium 4.6 3.5 - 5.0 mmol/L [facility] Comment: Please note: ??Patients with WBC >100,000 may have falsely elevated Potassium levels. ??For accurate Potassium quantification in these patients send serum separator tube (gold top) for subsequent determinations. ??Contact the Clinical Chemistry Laboratory if there are any questions. Chloride 104 98 - 107 mmol/L [facility] Carbon Dioxide 23 22 - 31 mmol/L [facility] Anion Gap 11 5 - 15 mmol/L [facility] Calcium 9.9 8.5 - 10.5 mg/dL [facility] Protein, Total 7.4 6.1 - 8.0 g/dL [facility] Albumin 4.5 3.2 - 5.2 g/dL [facility] Aspartate Aminotransferase 37 0 - 39 unit/L [facility] Alanine Aminotransferase 56(H) 0 - 55 unit/L [facility] Alkaline Phosphatase 79 40 - 130 unit/L [facility] Bilirubin, Total 0.7 0.2 - 1.3 mg/dL [facility] Est Glomerular Filtration Rate 69 >=60 mL/min/1. 73 m?? [facility] [...] Lab Emerita Falcon MD CHEMISTRY ORDERABL ES [facility] [address] [place] [address] documented in this encounter Visit Diagnoses Diagnosis Low back pain, non-specific Tachycardia Tachycardia, unspecified documented in this encounter Care Teams Literacy Consultant Relationship Specialty Start Date End Date Emerita Falcon MD [address] [facility] [place] [address] PCP - General Family Medicine 08/12/23 documented as of this encounter
--- OUTSIDE RECORDS SUMMARY | 2024-08-07 14:41 | XMS_ITS | Encounter Summary ---
Author Organization [facility] Address [facility] [place] [address] Care Team Providers Care Cyber Security Specialist Name Role Phone Belkys Houston MD Primary Care Provider [phone] Reason for Visit * Reason Comments Medication Refill Encounter Details Date Type Department Care Team ([facility] st Contact Info) Description 08/05/2023 Refill Primary Care at [address] [phone] Enma Ngo, EQUAL OPPORTUNITY DIRECTOR [address] [place] [address] Primary osteoarthritis of right knee Social History [...] leg documented in this encounter Care Teams Cyber Security Specialist Relationship Specialty Start Date End Date Belkys Houston MD [address] [place] [address] [place] [address] PCP - General Family Medicine 06/21/22 08/11/23 documented as of this encounter
--- OUTSIDE RECORDS SUMMARY | 2024-08-07 14:41 | XMS_ITS | Encounter Summary ---
Author Organization [facility] Address [facility] [place] [address] Care Team Providers Care Robot Programmer Name Role Phone Belkys Houston MD Primary Care Provider [phone] Encounter Details Date Type Department Care Team (Latest Contact Info) Description 06/16/2023 12:30 PM EDT - 06/16/2023 12:44 PM EDT Hospital Encounter XRay at [address] [phone] Amber Eastman N, ODD PIECE CHECKER [address] [place] [id number] Pain and swelling of right lower leg [...] who have questions please contact the health progressive care nurse that requested your imaging first. ? Electronically signed by: PRUDENCIO GREEN MD, [facility] ([phone]), at 06/16/2023 2:08 PM Narrative 06/16/2023 2:08 [...] patients who have questions please contactthe health progressive care nurse that requested your imaging first. Electronically signed by: PRUDENCIO GREEN MD, [facility] ([phone]), at 06/16/2023 2:08 PM Amber Eastman DIAMOND IMG DX ORDERABLES documented in this encounter Visit Diagnoses Diagnosis Pain and swelling of right lower leg documented in this encounter Care Teams Robot Programmer Relationship Specialty Start Date End Date Belkys Houston MD [address] [place] [address] [place] [address] PCP - General Family Medicine 06/21/22 08/11/23 documented as of this encounter
--- OUTSIDE RECORDS SUMMARY | 2024-08-07 14:41 | XMS_ITS | Encounter Summary ---
Author Organization [facility] Address [facility] [place] [address] Care Team Providers Care Hydroelectric Mechanic Name Role Phone Belkys Houston MD Primary Care Provider [phone] Encounter Details Date Type Department Care Team (Late st Contact Info) Description 07/18/2023 Telephone Primary Care at [address] [address] Belkys Houston MD [address] [place] [address] Social History Tobacco Use Types Packs/Day Years [...] or media. Planned with patient that this real estate underwriter will request fax from [facility]. Will notify patient by tomorrow morning if records were received or not received. Called [facility] and requested MRI faxed to [phone]. * Telephone Encounter - Cammy Murcia LPN - 07/18/2023 2:59 PM EDT Pt asking for MRI results that were done at an outside facility on Tuesday documented in this encounter Plan of Treatment Not on file documented as of this encounter Visit Diagnoses Not on filedocumented in this encounter Care Teams Hydroelectric Mechanic Relationship Specialty Start Date End Date Belkys Houston MD [address] [place] [address] PCP - General Family Medicine 06/21/22 08/11/23 documented as of this encounter
--- OUTSIDE RECORDS SUMMARY | 2024-08-07 14:41 | XMS_ITS | Encounter Summary ---
Author Organization [facility] Address [facility] [place] [address] Care Team Providers Care Hand I Cutter Name Role Phone Belkys Houston MD Primary Care Provider [phone] Encounter Details Date Type Department Care Team [...] on filedocumented in this encounter Care Teams Hand I Cutter Relationship Specialty Start Date End Date Belkys Houston MD [address] [place] [address] PCP - General Family Medicine 06/21/22 08/11/23 documented as of this encounter
--- OUTSIDE RECORDS SUMMARY | 2024-08-07 14:41 | XMS_ITS | Encounter Summary ---
Author Organization [facility] Address [facility] [place] [address] Care Team Providers Care Gold Leaf Roller Name Role Phone Belkys Houston MD Primary Care Provider [phone] Encounter Details Date Type Department Care Team [...] on filedocumented in this encounter Care Teams Gold Leaf Roller Relationship Specialty Start Date End Date Belkys Houston MD [address] [place] [address] PCP - General Family Medicine 06/21/22 08/11/23 documented as of this encounter
--- OUTSIDE RECORDS SUMMARY | 2024-08-07 14:41 | XMS_ITS | Encounter Summary ---
Author Organization [facility] Address [facility] [address] Care Team Providers Care Rental Sales Representative Name Role Phone Belkys Houston MD Primary Care Provider [phone] Reason for Visit * Reason Onset Date Comments Triage 07/12/2023 Back Pain 07/12/2023 Encounter Details Date Type Department Care Team (Late st Contact Info) Description 07/12/2023 Nurse Triage Primary Care at [address] [address] Guilherme Akhtar, commercial drone pilot; Back Pain Social History Tobacco Use Types [...] on filedocumented in this encounter Care Teams Rental Sales Representative Relationship Specialty Start Date End Date Belkys Houston MD [address] [place] [address] PCP - General Family Medicine 06/21/22 08/11/23 documented as of this encounter
--- OUTSIDE RECORDS SUMMARY | 2024-08-07 14:41 | XMS_ITS | Encounter Summary ---
Author Organization [facility] Address [facility] [place] [address] Care Team Providers Care Forms Builder Name Role Phone Belkys Houston MD Primary Care Provider Reason for Referral * Physical Therapy (Routine) - Closed Specialty Diagnoses / Procedures Referred By Contac t Referred To Contact Physical Therapy Diagnoses Chronic pain of left knee Chronic pain of right knee Amber Eastman APRN [address] [place] [address] [facility] Pt [facility] [address] [place] [address] Referral ID Status Reason Start Date Expiration Date V isits Requested Visits Authorized [id number] Closed Evaluate and Treat 12/17/2022 12/17/2023 12 12 * Consultation (Routine) - Closed Specialty Diagnoses / Procedures Referred By Contac t Referred To Contact Orthopaedics Diagnoses Chronic pain of left knee Chronic pain of right knee Amber Eastman APRN [address] [place] [address] [facility] [address] [place] [address] Referral ID Status Reason Start Date Expiration Date V isits Requested Visits Authorized [id number] Closed Consult, Test & Treat 12/17/2022 12/17/2023 1 1 Encounter Details Date Type Department Care Team ([facility] st Contact Info) Description 12/17/2022 1:25 PM EDT Office Visit Primary Care at [address] [address] Amber Eastman APRN [address] [place] [address] [place] [address] Right flank pain; Chronic pain of left [...] who have questions please contact the health childcare provider that requested your imaging first. ? Electronically signed by: PRUDENCIO GREEN MD, [facility] ([phone]), at 12/17/2022 2:42 PM Narrative 12/17/2022 2:42 [...] patients who have questions please contactthe health childcare provider that requested your imaging first. Electronically signed by: PRUDENCIO GREEN MD, [facility] ([phone]), at 12/17/2022 2:42 PM Amber Eastman APRN [...] knee documented in this encounter Care Teams Forms Builder Relationship Specialty Start Date End Date Belkys Houston MD [address] [place] [address] PCP - General Family Medicine 06/21/22 08/11/23 documented as of this encounter
--- OUTSIDE RECORDS SUMMARY | 2024-08-07 14:41 | XMS_ITS | Encounter Summary ---
Author Organization [facility] Address [facility] [place] [address] Care Team Providers Care Shear Setter Name Role Phone Belkys Houtson MD Primary Care Provider [phone] Encounter Details Date Type Department Care Team [...] on filedocumented in this encounter Care Teams Shear Setter Relationship Specialty Start Date End Date Belkys Houston MD [address] [place] [address] PCP - General Family Medicine 06/21/22 08/11/23 documented as of this encounter
--- OUTSIDE RECORDS SUMMARY | 2024-08-07 14:41 | XMS_ITS | Encounter Summary ---
Author Organization [facility] Address [facility] [place] [address] Care Team Providers Care Chart Reader Name Role Phone Belkys Houston MD Primary Care Provider [phone] Encounter Details Date Type Department Care Team (Latest Contact Info) Description 06/08/2023 6:40 PM EDT - 06/08/2023 11:59 PM EDT Hospital Encounter XRay at [address] [address] Destinee Escamilla, CRANE RIGGER [address] [place] [address] Pain in right hip Discharge Disposition: [...] who have questions please contact the health cattle care worker that requested your imaging first. ? Electronically signed by: DANIELE JOSEPH MD, [facility] ([phone]), at 06/09/2023 7:58 AM Narrative 06/09/2023 7:58 [...] patients who have questions please contactthe health cattle care worker that requested your imaging first. Electronically signed by: DANIELE JOSEPH MD, [facility]([phone]), at 06/09/2023 7:58 AM Destinee Escamilla APRN IMG DX ORDERABLES documented in this encounter Visit Diagnoses Diagnosis Pain in right hip Pain in joint, pelvic region and thigh documented in this encounter Care Teams Chart Reader Relationship Specialty Start Date End Date Belkys Houston MD [address] [place] [address] [place] [address] PCP - General Family Medicine 06/21/22 08/11/23 documented as of this encounter
--- OUTSIDE RECORDS SUMMARY | 2024-08-07 14:41 | XMS_ITS | Encounter Summary ---
Author Organization [facility] Address [facility] [place] [address] Care Team Providers Care Stock Crane Operator Name Role Phone Belkys Houston MD Primary Care Provider Reason for Visit * Reason Onset Date Comments Triage 06/15/2023 Foot Swelling 06/15/2023 Encounter Details Date Type Department Care Team (Late st Contact Info) Description 06/15/2023 Nurse Triage Primary Care at [place] [address] [place] [address] Belkys Houston MD [address] [place], [place] [phone] Triage; Foot Swelling Social History Tobacco Use [...] on filedocumented in this encounter Care Teams Stock Crane Operator Relationship Specialty Start Date End Date Belkys Houston MD [address] [place] [address] PCP - General Family Medicine 06/21/22 08/11/23 documented as of this encounter
--- OUTSIDE RECORDS SUMMARY | 2024-08-07 14:41 | XMS_ITS | Encounter Summary ---
Author Organization [facility] Address [facility] [place] [address] Care Team Providers Care Commodities Clerk Name Role Phone Belkys Houston MD Primary Care Provider [phone] Encounter Details Date Type Department Care Team [...] on filedocumented in this encounter Care Teams Commodities Clerk Relationship Specialty Start Date End Date Belkys Houston MD [address] [place] [address] PCP - General Family Medicine 06/21/22 08/11/23 documented as of this encounter
--- OUTSIDE RECORDS SUMMARY | 2024-08-07 14:41 | XMS_ITS | Encounter Summary ---
Author Organization [facility] Address [facility] [place] [address] Care Team Providers Care Route Sales Trainee Name Role Phone Belkys Houston MD Primary Care Provider [phone] Encounter Details Date Type Department Care Team [...] on filedocumented in this encounter Care Teams Route Sales Trainee Relationship Specialty Start Date End Date Belkys Houston MD [address] [place] [address] PCP - General Family Medicine 06/21/22 08/11/23 documented as of this encounter
--- OUTSIDE RECORDS SUMMARY | 2024-08-07 14:42 | XMS_ITS | Encounter Summary ---
Author Organization [facility] [place] [address] Care Team Providers Care Turner Off Name Role Phone None Primary Care Provider Unavailabl e Encounter Details Date Type Department Care Team (Late st Contact Info) Description 11/03/2016 Tele[place] [address] Cassandra Moe, RN Social History Tobacco Use [...] on filedocumented in this encounter Care Teams Turner Off Relationship Specialty Start Date End Date None None PCP - General 08/11/10 06/20/22 documented as of this encounter
--- OUTSIDE RECORDS SUMMARY | 2024-08-07 14:42 | XMS_ITS | Encounter Summary ---
Author Organization [facility] Address [facility] [place] [address] Care Team Providers Care Strip Picker Name Role Phone Belkys [place] MD Primary Care Provider Reason for Visit * Reason Comments Abdominal Pain Encounter Details Date Type Department Care Team ([facility] st Contact Info) Description 11/30/2022 9:47 AM EDT - 11/30/2022 12:46 PM EDT Emergency Emergency Department at [address] [phone] Sergey Aly MD [address] [place] [phone] Diverticulitis of intestine without perforation or abscess [...] rescription for antibiotic was sent to the [facility] on . * Attachments The following attachments cannot be sent through Care Everywhere. * Diverticulitis (Prydeinig) documented in this encounter Medications at Time [...] who have questions please contact the health pet care technician that requested your imaging first. Electronically signed by: PRUDENCIO GREEN MD, [facility] ([phone]), at 11/30/2022 12:03 PM -I considered pertinent [...] who have questions please contact the health pet care technician that requested your imaging first. ? Electronically signed by: PRUDENCIO GREEN MD, [facility] ([phone]), at 11/30/2022 12:03 PM Narrative 11/30/2022 12:03 [...] patients who have questions please contactthe health pet care technician that requested your imaging first. Electronically signed by: PRUDENCIO GREEN MD, [facility] ([phone]), at 11/30/2022 12:03 PM Sergey Aly MD IMG CT ORDERABLES * Gold Tube HOLD (11/30/2022 10:25 AM EDT) Gold Hold Sample in lab. [facility] Blood Venous Draw / Unknown 11/30/2022 10:25 AM EDT 11/30/2022 10:45 AM EDT Sergey Aly MD CHEMISTRY ORDERABLES Performing Organization Address [facility] de Phone Number [facility] [address] [place] [address] * Blue Tube HOLD (11/30/2022 10:25 AM EDT) Blue Hold Sample in lab. [facility] Blood Venous Draw / Unknown 11/30/2022 10:25 AM EDT 11/30/2022 10:44 AM EDT Sergey Aly MD HEMATOLOGY ORDERABLE S Performing Organization Address [facility] Co de Phone Number [facility] [address] [place] [address] * (ABNORMAL) Differential, Automated (11/30/2022 10:25 AM EDT) Neutrophil % 75.2 % [facility] Neutrophil Absolute 8.79(H) 1.70 - 6.10 x10(3)/mc L [facility] Lymph % 15.6 % [facility] Lymphocytes Abs 1.8 0.9 - 3.2 x10(3)/ L [facility] Monocyte % 7.5 % [facility] Monocyte Abs 0.9 0.3 - 0.9 x10(3)/mc L [facility] Eos % 1.1 % [facility] Eosinophils Abs 0.1 0.0 - 0.4 x10(3)/[facility] Basophil % 0.3 % [facility] Baso Absolute 0.0 0.0 - 0.1 x10(3)/ L [facility] Immature Gran % 0.30 % [facility] Comment: Immature granulocytes(IG's)percentage and absolute count will include metamyelocytes, myelocytes, and promyelocytes. Blood smears from CBCs yielding IG's will be scanned manually for concordance. If this scan disagrees with the automated IG or if promyelocytes are noted, a manual differential will be performed. Immature Gran Absolute 0.03 0.00 - 0.04 x10(3)/ L [facility] Blood 11/30/2022 10:2 5 AM EDT 11/30/2022 10:41 AM EDT Narrative Resulting Agency Comment Spec In Lab Sergey Aly MD HEMATOLOGY ORDERABLE S [facility] [address] [place] [address] * (ABNORMAL) Hemogram (11/30/2022 10:25 AM EDT) White Blood Cell 11.7(H) 4.0 - 9.5 x10(3)/mc L [facility] Red Blood Cell 4.84 4.58 - 5.54 x10(6)/ L [facility] Hemoglobin 15.2 13.7 - 16.5 g/dL [facility] Hematocrit 45.1 40.5 - 48.5 % [facility] Mean Cell Volume 93.2(H) 82.9 - 93.1 fL [facility] Mean Cell Hemoglobin 31.4 27.5 - 32.1 pg [facility] Mean Cell Hemoglobin Concentration 33.7 32.0 - 35.7 g/dL [facility] Platelet 288 145 - 357 x10(3)/mc L [facility] RDW Standard Deviation 43.7 36.0 - 45.0 fL [facility] RDW coefficient of variation 12.7 11.4 - 13.8 % [facility] Mean Platelet Volume 9.4 7.6 - 12.9 fL [facility] NRBC% auto 0.0 % [facility] NRBC Absolute 0.000 0.000 - 0.000 x10(3)/mc L [facility] Blood 11/30/2022 10:2 5 AM EDT 11/30/2022 10:41 AM EDT Narrative Resulting Agency Comment Spec In Lab Sergey Aly MD HEMATOLOGY ORDERABLE S [facility] [address] [place] [address] * (ABNORMAL) Comprehensive metabolic panel (non-fasting) (11/30/2022 10:25 AM EDT) Glucose 113 65 - 199 mg/dL [facility] Comment:Diabetes: >=200 mg/d L plus symptoms Blood Urea Nitrogen 18 10 - 20 mg/dL [facility] Creatinine 1.23 0.80 - 1.50 mg/dL [facility] Sodium 137 135 - 145 mmol/L [facility] Potassium 4.2 3.5 - 5.0 mmol/L [facility] Comment: Please note: ??Patients with WBC >100,000 may have falsely elevated Potassium levels. ??For accurate Potassium quantification in these patients send serum separator tube (gold top) for subsequent determinations. ??Contact the Clinical Chemistry Laboratory if there are any questions. Chloride 101 98 - 107 mmol/L [facility] Carbon Dioxide 23 22 - 31 mmol/L [facility] Anion Gap 13 5 - 15 mmol/L [facility] Calcium 9.7 8.5 - 10.5 mg/dL [facility] Protein, Total 7.6 6.1 - 8.0 g/dL [facility] Albumin 4.4 3.2 - 5.2 g/dL [facility] Aspartate Aminotransferase 30 0 - 39 unit/L [facility] Alanine Aminotransferase 44 0 - 55 unit/L [facility] Alkaline Phosphatase 73 40 - 130 unit/L [facility] Bilirubin, Total 1.6(H) 0.2 - 1.3 mg/dL [facility] Est Glomerular Filtration Rate 74 >=60 mL/min/1. 73 m?? [facility] Comment: This patient's estimated [...] In Lab Sergey Aly MD CHEMISTRY ORDERABLES [facility] [address] [place] [address] documented in this encounter Visit Diagnoses Diagnosis [...] RN) documented in this encounter Care Teams Strip Picker Relationship Specialty Start Date End Date Belkys [place] MD [address] [place] [phone] PCP - General Family Medicine 06/21/22 08/11/23 documented as of this encounter
--- OUTSIDE RECORDS SUMMARY | 2024-08-07 14:42 | XMS_ITS | Encounter Summary ---
Author Organization [facility] Address [facility] [place] [address] Care Team Providers Care Sales Promotion Officer Name Role Phone Belkys [place] MD Primary Care Provider Reason for Visit * Reason Onset Date Comments Triage 07/15/2022 Abdominal Pain 07/15/2022 Encounter Details Date Type Department Care Team ([facility] st Contact Info) Description 07/15/2022 Telephone Primary Care at [address] [phone] Daysi Noriega, QUILL PICKING MACHINE OPERATOR [address] [place] [address] [phone] Triage; Abdominal Pain Social History Tobacco Use [...] on filedocumented in this encounter Care Teams Sales Promotion Officer Relationship Specialty Start Date End Date Belkys [place] MD [address] [place] [address] [place] [address] PCP - General Family Medicine 06/21/22 08/11/23 documented as of this encounter
--- OUTSIDE RECORDS SUMMARY | 2024-08-07 14:42 | XMS_ITS | Encounter Summary ---
Author Organization [facility] Address [facility] [place] [address] Care Team Providers Care Loss Prevention Auditor Name Role Phone Belkys [place] MD Primary Care Provider [phone] Reason for Visit * Auth/Cert (Routine) Specialty [...] UPPER GI ENDOSCOPY Maite Barraza MD [address] [place] [phone] [facility] Referral ID Status Reason Start Date Expiration Date Visits Re quested Visits Authorized [id number] 1 1 Encounter Details Date Type Department Care Team ([facility] st Contact Info) Description 10/25/2022 12:30 PM EST - 10/25/2022 1:15 PM EST Surgery Endoscopy at [address] [phone] Maite Barraza MD [address] [place] [phone] COLONOSCOPY, DIAGNOSTIC (WRVU 3.26) Social History Tobacco [...] colonoscopy for follow up diverticulitis 2020 at [facility] with 1 polyp and diverticulosis. Had abd [...] Barraza MD Gastroenterology 10/25/2022 1:12 PM Pager #[phone] documented in this encounter Plan of Treatment [...] 1:24 PM EST Upper GI Endoscopy, Diagnostic (97135) 10/25/2022 1:10 PM EST black tarry stools Colonoscopy, Diagnostic (26941) 10/25/2022 1:10 PM EST black tarry stools [...] PM EST 10/25/2022 1:56 PM EST Narrative [facility] - 10/25/2022 1:56 PM EST Specimen requisition ordered. ??Separate Pathology report to follow Maite Barraza MD PATHOLOGY/CYTOLOGY O KLEBER [facility] [address] * Specimen to Pathology (10/25/2022 1:56 PM EST) AP Specimen 10/25/2022 1:56 PM EST 10/25/2022 1:56 PM EST Narrative [facility] - 10/25/2022 1:56 PM EST Specimen requisition ordered. ??Separate Pathology report to follow Maite Barraza MD PATHOLOGY/CYTOLOGY O KLEBER Performing Organization Address [facility] Co de [place] [address] * Specimen to Pathology (10/25/2022 1:56 PM EST) AP Specimen 10/25/2022 1:56 PM EST 10/25/2022 1:56 PM EST Narrative [facility] - 10/25/2022 1:56 PM EST Specimen requisition ordered. ??Separate Pathology report to follow Maite Barraza MD PATHOLOGY/CYTOLOGY O KLEBER Performing Organization Address [facility] de [place] [address] * Surgical Pathology Report (10/25/2022 1:24 PM EST) Final Diagnosis [id number] ? Location: [facility]; [facility]; A The signing pathologist has (i) examined [...] MD Verified: ??10/26/2022 13:00 ??Pathologist Performed at: ??[facility] Dept of Pathology, [address] [place] [address] Wellness Program Administrator: Florina Gordillo MD, ??CLIA Certificate: [id number] SPECIMEN(S) SUBMITTED A - Distal esophagus bx, biopsy (Multiple) B - Cecal polyp, excision (1) C - Descending colon polyp, excision (1) D - Sigmoid colon polyps, excision (3) CLINICAL INFORMATION EGD/[place] - Black, tarry stools A - Esophagitis [...] single cassette. ??clc 10/26/2022 1:00 PM EST [facility] GI Biopsy 10/25/2022 1:24 PM EST 10/25/2022 1:24 PM EST GI Biopsy 10/25/2022 1:24 PM EST 10/25/2022 1:24 PM EST GI Biopsy 10/25/2022 1:24 PM EST 10/25/2022 1:24 PM EST GI Biopsy 10/25/2022 1:24 PM EST 10/25/2022 1:24 PM EST Maite Barraza MD PATHOLOGY/CYTOLOGY O RDERABLES [facility] [place] [address] [facility] [address] [place] [address] * Specimen to Pathology (10/25/2022 1:24 PM EST) AP Specimen 10/25/2022 1:24 PM EST 10/25/2022 1:24 PM EST Narrative [facility] - 10/25/2022 1:24 PM EST Specimen requisition ordered. ??Separate Pathology report to follow Maite Barraza MD PATHOLOGY/CYTOLOGY O KLEBER [facility] [place] [address] * Patient Instructions (10/25/2022 12:34 PM EST) [...] procedure please call Maite Barraza MD at #[phone] After 5pm Tuesday-Tuesday and on weekends or holidays please call [phone] and the hospital line painting machine operator can page the production welder ?gastroenterolo gist to return your call. Maite Barraza MD ___ Maite Barraza MD 10/25/2022 1:27:30 PM This report has been signed electronically. [employer] 10/25/2022 12:3 4 PM EST Maite Barraza MD INFORMATIONAL ONL Y Performing Organization Address City/State/[facility] Co de Phone Number [employer] * UPPER GI ENDOSCOPY (10/25/2022 12:34 PM EST) UPPER GI ENDOSCOPY ___ Patient Name: Demetrio Rivers Procedure Date: 10/25/2022 12:34 PM ?Attending MD: Maite Barraza MD Date of : 1975 ? Order #: [id number] Age: 46 ?Instrument Name: [id number] ___ Procedure: ? Upper GI endoscopy Indications: [...] nurse, the ? anesthesiologist and the ? water filtration technician. The procedure was ? verified in [...] Procedure Code(s): ? --- Professional --- ? 27548, Esophagogastroduode noscopy, ? flexible, transoral; with biopsy, [...] Melena (includes ? Hematochezia) CPT copyright 2021 [employer]. All rights reserved. The codes documented in this report are preliminary and upon terrazzo installer review may be revised to meet current [...] procedure please call Maite Barraza MD at #[phone] After 5pm Tuesday-Tuesday and on weekends or holidays please call [phone] and the hospital line painting machine operator can page the production welder ?gastroenterolo gist to return your call. Maite [...] Date of : 1975 ? Order #: [id number] Age: 46 ?Instrument Name: [id number] ___ Procedure: ? Colonoscopy Indications: ? Screening [...] nurse, the ? anesthesiologist and the ? water filtration technician. The procedure was ? verified in [...] Procedure Code(s): ? --- Professional --- ? 84178, Colonoscopy, flexible; with ? removal of tumor(s), [...] ? abscess without bleeding CPT copyright 2020 [employer]. All rights reserved. The codes documented in this report are preliminary and upon terrazzo installer review may be revised to meet current [...] (Due) documented in this encounter Care Teams Loss Prevention Auditor Relationship Specialty Start Date End Date Belkys [place] MD [address] [place] [phone] PCP - General Family Medicine 06/21/22 08/11/23 documented as of this encounter
--- OUTSIDE RECORDS SUMMARY | 2024-08-07 14:42 | XMS_ITS | Encounter Summary ---
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 He [...] 12:17 PM EST) Neutrophil % 59.8 % [facility] Neutrophil Absolute 4.80 1.70 - 6.10 x10(3)/[facility] Lymph % 30.0 % [facility] Lymphocytes Abs 2.4 0.9 - 3.2 x10(3)/[facility] Monocyte % 7.3 % [facility] Monocyte Abs 0.6 0.3 - 0.9 x10(3)/[facility] Eos % 2.3 % [facility] Eosinophils Abs 0.2 0.0 - 0.4 x10(3)/[facility] Basophil % 0.3 % [facility] Baso Absolute 0.0 0.0 - 0.1 x10(3)/[facility] Immature Gran % 0.30 % [facility] Comment: Immature granulocytes(IG's)percentage and absolute count will include metamyelocytes, myelocytes, and promyelocytes. Blood smears from CBCs yielding IG's will be scanned manually for concordance. If this scan disagrees with the automated IG or if promyelocytes are noted, a manual differential will be performed. Immature Gran Absolute 0.02 0.00 - 0.04 x10(3)/mcL [facility] Blood specimen (specimen) 10/20/2016 12:17 PM EST 10/20/2016 12:35 PM EST Narrative Resulting Agency Comment Spec In Lab Carson Breen MD HEMATOLOGY ORDERABLE S [facility] [place] [address] * (ABNORMAL) Hemogram (10/20/2016 12:17 PM EST) White Blood Cell 8.0 4.0 - 9.5 x10(3)/[facility] Red Blood Cell 5.09 4.58 - 5.54 x10(6)/[facility] Hemoglobin 15.6 13.7 - 16.5 gm/dL [facility] Hematocrit 43.5 40.5 - 48.5 % [facility] Mean Cell Volume 85.5 82.9 - 93.1 [facility] Mean Cell Hemoglobin 30.6 27.5 - 32.1 pg [facility] Mean Cell Hemoglobin Concentration 35.9(H) 32.0 - 35.7 gm/dL [facility] Platelet 308 145 - 357 x10(3)/[facility] RDW Standard Deviation 37.7 36.0 - 45.0 [facility] RDW coefficient of variation 12.0 11.4 - 13.8 % [facility] Mean Platelet Volume 9.7 7.6 - 12.9 [facility] NRBC% auto 0.0 % [facility] NRBC Absolute 0.000 0.000 - 0.000 x10(3)/ L [facility] Blood specimen (specimen) 10/20/2016 12:17 PM EST 10/20/2016 12:35 PM EST Narrative Resulting Agency Comment Spec In Lab Carson Breen MD HEMATOLOGY ORDERABLE S [facility] [place] [address] * (ABNORMAL) Comprehensive metabolic panel (non-fasting) (10/20/2016 12:17 PM EST) Glucose 94 65 - 199 mg/dL [facility] Comment:Diabetes: >=200 mg/d L plus symptoms Blood Urea Nitrogen 15 10 - 20 mg/dL [facility] Creatinine 1.10 0.80 - 1.50 mg/dL [facility] Comment: Please note that the pediatric reference intervals supplied above were not validated at [facility]. Results from pediatric patients should be interpreted in conjunction to the patient's age, height and muscle mass. Sodium 139 135 - 145 mmol/L [facility] Potassium 4.0 3.5 - 5.0 mmol/L [facility] Comment: Please note: ??Patients with WBC >100,000 may have falsely elevated Potassium levels. ??For accurate Potassium quantification in these patients send serum separator tube (gold top) for subsequent determinations. ??Contact the Clinical Chemistry Laboratory if there are any questions. Chloride 102 98 - 107 mmol/L [facility] Carbon Dioxide 22 22 - 31 mmol/L [facility] Anion Gap 15 5 - 15 mmol/L [facility] Calcium 9.5 8.5 - 10.5 mg/dL [facility] Protein, Total 7.9 6.1 - 8.0 gm/dL [facility] Albumin 4.9 3.2 - 5.2 gm/dL [facility] Aspartate Aminotransferase 41(H) 0 - 39 unit/L [facility] Alanine Aminotransferase 54 0 - 55 unit/L [facility] Alkaline Phosphatase 58 40 - 120 unit/L [facility] Bilirubin, Total 1.7(H) 0.2 - 1.3 mg/dL [facility] Bilirubin, Direct 0.3 0.0 - 0.3 mg/dL [facility] Est Glomerular Filtration Rate >60 >=60 [facility] Comment: This estimated GFR (eGFR) [...] the following links into your internet browser. [email or web address] Blood specimen (specimen) 10/20/2016 12:17 PM EST 10/20/2016 12:35 PM EST Narrative Resulting Agency Comment Spec In Lab Carson Breen MD CHEMISTRY ORDERABLES Performing Organization Address City/[facility]/ZIP Co de Phone Number [facility] [place] [address] * (ABNORMAL) Uric acid (10/20/2016 12:17 PM EST) Uric Acid 9.7(H) 3.5 - 8.5 mg/dL [facility] Blood specimen (specimen) 10/20/2016 12:17 PM EST 10/20/2016 12:35 PM EST Narrative Resulting Agency Comment Spec In Lab Carson Breen MD CHEMISTRY ORDERABLES [facility] [place] [address] documented in this encounter Visit Diagnoses Diagnosis Gout of multiple sites, unspecified cause, unspecified chronicity documented in this encounter Care Teams Overhead Door Technician Relationship Specialty Start Date End Date None None PCP - General 08/11/10 06/20/22 documented as of this encounter
--- OUTSIDE RECORDS SUMMARY | 2024-08-07 14:42 | XMS_ITS | Encounter Summary ---
Author Organization [facility] Address [facility] [place] [address] Care Team Providers Care Physics Instructor Name Role Phone Belkys [place] MD Primary Care Provider [phone] Encounter Details Date Type Department Care Team [...] on filedocumented in this encounter Care Teams Physics Instructor Relationship Specialty Start Date End Date Belkys [place] MD [address] [place] [phone] PCP - General Family Medicine 06/21/22 08/11/23 documented as of this encounter
--- OUTSIDE RECORDS SUMMARY | 2024-08-07 14:42 | XMS_ITS | Encounter Summary ---
Author Organization [facility] [place] [address] Care Team Providers Care Pharmacy General Manager Name Role Phone None Primary Care Provider Unavailabl e Reason for Visit * Reason Onset Date Comments Appointment 09/08/2016 Encounter Details Date Type Department Care Team (Late st Contact Info) Description 09/08/2016 Tele[place] [phone] Tony Lees MD [facility] [place] [address] Appointment Social History Tobacco Use Types Packs/Day [...] outlined below * Telephone Encounter - Liane Wbeb - 09/10/2016 10:29 AM EST LM#2 To [...] on filedocumented in this encounter Care Teams Pharmacy General Manager Relationship Specialty Start Date End Date None None PCP - General 08/11/10 06/20/22 documented as of this encounter
--- OUTSIDE RECORDS SUMMARY | 2024-08-07 14:42 | XMS_ITS | Encounter Summary ---
Author Organization [facility] [place] [address] Care Team Providers Care Pack Mule Worker Name Role Phone None Primary Care Provider Unavailabl e Encounter Details Date Type Department Care Team (Latest Contact Info) Description 09/14/2016 11:55 AM EST Laboratory Appointment Lab 3L [facility] [place] [id number] Chronic pain of both knees Social History [...] 11:58 AM EST) Neutrophil % 58.1 % [facility] Neutrophil Absolute 4.67 1.70 - 6.10 x10(3)/[facility] LABORAT[facility] Lymph % 31.1 % [facility] Lymphocytes Abs 2.5 0.9 - 3.2 x10(3)/[facility] Monocyte % 5.7 % [facility] Monocyte Abs 0.5 0.3 - 0.9 x10(3)/[facility] LABORATORY Eos % 4.2 % [facility] Eosinophils Abs 0.3 0.0 - 0.4 x10(3)/[facility] LABORATORY Basophil % 0.5 % [facility] Baso Absolute 0.0 0.0 - 0.1 x10(3)/[facility] Immature Gran % 0.40 % [facility] Comment: Immature granulocytes(IG's)percentage and absolute count will include metamyelocytes, myelocytes, and promyelocytes. Blood smears from CBCs yielding IG's will be scanned manually for concordance. If this scan disagrees with the automated IG or if promyelocytes are noted, a manual differential will be performed. Immature Gran Absolute 0.03 0.00 - 0.04 x10(3)/[facility] Blood specimen (specimen) 09/14/2016 11:58 AM EST 09/14/2016 12:08 PM EST Narrative Resulting Agency Comment Spec In Lab Demetrio Ferrer MD HEMATOLOGY ORDERABLE S [facility] [place] [address] * Hemogram (09/14/2016 11:58 AM EST) White Blood Cell 8.0 4.0 - 9.5 x10(3)/[facility] LAB[facility]ATORY Red Blood Cell 5.24 4.58 - 5.54 x10(6)/[facility] Hemoglobin 16.1 13.7 - 16.5 gm/dL [facility] Hematocrit 45.4 40.5 - 48.5 % [facility] Mean Cell Volume 86.6 82.9 - 93.1 fL [facility] Mean Cell Hemoglobin 30.7 27.5 - 32.1 pg [facility] Mean Cell Hemoglobin Concentration 35.5 32.0 - 35.7 gm/dL [facility] Platelet 349 145 - 357 x10(3)/[facility] LABORATORY RDW Standard Deviation 38.7 36.0 - 45.0 fL [facility] RDW coefficient of variation 12.1 11.4 - 13.8 % [facility] Mean Platelet Volume 9.5 7.6 - 12.9 [facility] LABORATORY NRBC% auto 0.0 % [facility] NRBC Absolute 0.000 0.000 - 0.000 x10(3)/[facility] Blood specimen (specimen) 09/14/2016 11:58 AM EST 09/14/2016 12:08 PM EST Narrative Resulting Agency Comment Spec In Lab Demetrio Ferrer MD HEMATOLOGY ORDERABLE S Performing Organization Address City/[facility]/ZIP Co de Phone Number [facility] [place] [address] * (ABNORMAL) Uric acid (09/14/2016 11:58 AM EST) Uric Acid 9.7(H) 3.5 - 8.5 mg/dL [facility] Blood specimen (specimen) 09/14/2016 11:58 AM EST 09/14/2016 12:08 PM EST Narrative Resulting Agency Comment Spec In Lab Demetrio Ferrer MD CHEMISTRY ORDERABLES [facility] [place] [address] * Comprehensive metabolic panel (non-fasting) (09/14/2016 11:58 [...] intervals supplied above were not validated at [facility]. Results from pediatric patients should be interpreted [...] LABORATORY Est Glomerular Filtration Rate >60 >=60 [facility] Comment: This estimated GFR (eGFR) value [...] the following links into your internet browser. [email or web address] Blood specimen (specimen) 09/14/2016 11:58 AM EST 09/14/2016 12:08 PM EST Narrative Resulting Agency Comment Spec In Lab Demetrio Ferrer MD CHEMISTRY ORDERABLES [facility] [place] [address] * CRP, cardiac risk (HS CRP) (09/14/2016 [...] CRP Cardiac Risk Low Risk [facility] Blood specimen (specimen) 09/14/2016 11:58 AM EST 09/14/2016 12:08 PM EST Narrative Resulting Agency Comment Spec In Lab Demetrio Ferrer MD CHEMISTRY ORDERABLES Performing Organization Address City/State/[facility] Co de Phone Number [facility] [place] [address] documented in this encounter Visit Diagnoses Diagnosis Chronic pain of both knees documented in this encounter Care Teams Pack Mule Worker Relationship Specialty Start Date End Date None None PCP - General 08/11/10 06/20/22 documented as of this encounter
--- OUTSIDE RECORDS SUMMARY | 2024-08-07 14:42 | XMS_ITS | Encounter Summary ---
Author Organization [facility] Address [facility] [place] [address] Care Team Providers Care Fabric Normalizer Name Role Phone Belkys Houston MD Primary Care Provider [phone] Encounter Details Date Type Department Care Team (Late st Contact Info) Description 10/25/2022 Telephone Gastroenterology and Hepatology at [address] [address] Nely Salcido RN Social History [...] on filedocumented in this encounter Care Teams Fabric Normalizer Relationship Specialty Start Date End Date Belkys Huoston MD [address] [place] [address] [place] [address] PCP - General Family Medicine 06/21/22 08/11/23 documented as of this encounter
--- OUTSIDE RECORDS SUMMARY | 2024-08-07 14:42 | XMS_ITS | Encounter Summary ---
Author Organization [facility] Address [facility] [place] [address] Care Team Providers Care Nca Certified Concierge Name Role Phone Belkys Houston MD Primary Care Provider [phone] Encounter Details Date Type Department Care Team (Latest Contact Info) Description 11/30/2022 10:05 AM EDT - 11/30/2022 11:59 PM EDT Hospital Encounter CAT Scan at [address] [phone] Discharge Disposition: Home Social History [...] mLs documented in this encounter Care Teams Nca Certified Concierge Relationship Specialty Start Date End Date Belkys Houston MD [address] [place] [id number] PCP - General Family Medicine 06/21/22 08/11/23 documented as of this encounter
--- OUTSIDE RECORDS SUMMARY | 2024-08-07 14:42 | XMS_ITS | Encounter Summary ---
Author Organization [facility] Address [facility] [place] [address] Care Team Providers Care Technical Support Technician Name Role Phone Belkys Houston MD Primary Care Provider [phone] Reason for Visit * Reason Comments Cough Chest Congestion x 6 days. Nasal Congestion Encounter Details Date Type Department Care Team ([facility] Contact Info) Description 06/21/2022 1:10 PM EDT Office Visit Primary Care at [address] [phone] Destinee Escamilla, CROP SCOUT [address] [place] [phone] Chest congestion; Hypertension, unspecified type Social History [...] this encounter Progress Notes * Destinee Escamilla, CROP SCOUT - 06/21/2022 1:10 PM EDT Subjective: Patient [...] type documented in this encounter Care Teams Technical Support Technician Relationship Specialty Start Date End Date Belkys Houston MD [address] [place] [address] PCP - General Family Medicine 06/21/22 08/11/23 documented as of this encounter
--- OUTSIDE RECORDS SUMMARY | 2024-08-07 14:42 | XMS_ITS | Encounter Summary ---
Author Organization [facility] Address [facility] [place] [address] Care Team Providers Care Records Tech Name Role Phone Belkys Houston MD Primary Care Provider [phone] Encounter Details Date Type Department Care Team (Late st Contact Info) Description 09/08/2022 Notes Only Gastroenterology and Hepatology at [address] [address] Nichole Deal Social History Tobacco [...] Deal - 09/08/2022 2:47 PM EST GI SKIFF OPERATOR'S NOTE Nichole Deal 09/08/22 Patient's name: Demetrio Rivers Procedure: COLO Reason: BLACK TARRY STOOLS Provider: BRENDON Date: 10/25/22 Arrival: 11:30AM Time of procedure: 12:30PM Sedation Method: MAC Prep: Instructions for DULCOLAX AND MIRALAX SPLIT-DOSED PREP delivered via MAIL 09/08/22 (prep returned, spoke with pt this is a good address-emailed to [email or web address]) advised to check junkmail 09/28/22 Nurse: Message sent to nurse re: Message to MD: Depot order: In Basket order: Verbal order: Complete recall: Assign Referral: 09/08/22 Pacemaker form to BANK ANALYST: Abran folder: Copied to [facility] chart: 09/08/22 Comments:SLEEP APNEA documented in this encounter Plan of Treatment Not on file documented as of this encounter Visit Diagnoses Not on filedocumented in this encounter Care Teams Records Tech Relationship Specialty Start Date End Date Belkys Houston MD [address] [place] [address] PCP - General Family Medicine 06/21/22 08/11/23 documented as of this encounter
--- OUTSIDE RECORDS SUMMARY | 2024-08-07 14:42 | XMS_ITS | Encounter Summary ---
Author Organization [facility] Address [facility] [place] [address] Care Team Providers Care Senior Pricing Analyst Name Role Phone Belkys Houston MD Primary Care Provider [phone] Encounter Details Date Type Department Care Team (Late st Contact Info) Description 07/07/2022 Abstract Primary Care at [address] [address] Belkys Houston MD [address] [place] [address] Social History Tobacco Use Types Packs/Day Years [...] filedocumented in this encounter Care Teams Senior Pricing Analyst Relationship Specialty Start Date End Date Belkys Houston MD [address] [place] [address] PCP - General Family Medicine 06/21/22 08/11/23 documented as of this encounter
--- OUTSIDE RECORDS SUMMARY | 2024-08-07 14:42 | XMS_ITS | Encounter Summary ---
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 Is taking Ibuprofen 800 mg 4-5 [...] metabolic panel (non-fasting) (11/05/2016 11:16 AM EST) [facility] Glucose 96 65 - 199 mg/dL [facility] Comment:Diabetes: >=200 mg/d L plus symptoms Blood Urea Nitrogen 19 10 - 20 mg/dL [facility] Creatinine 1.09 0.80 - 1.50 mg/dL [facility] Comment: Please note that the pediatric reference intervals supplied above were not validated at [facility]. Results from pediatric patients should be interpreted in conjunction to the patient's age, height and muscle mass. Sodium 141 135 - 145 mmol/L [facility] Potassium 4.2 3.5 - 5.0 mmol/L [facility] Comment: Please note: ??Patients with WBC >100,000 may have falsely elevated Potassium levels. ??For accurate Potassium quantification in these patients send serum separator tube (gold top) for subsequent determinations. ??Contact the Clinical Chemistry Laboratory if there are any questions. Chloride 103 98 - 107 mmol/L [facility] Carbon Dioxide 22 22 - 31 mmol/L [facility] Anion Gap 16(H) 5 - 15 mmol/L [facility] Calcium 9.2 8.5 - 10.5 mg/dL [facility] Protein, Total 7.4 6.1 - 8.0 gm/dL [facility] Albumin 4.7 3.2 - 5.2 gm/dL [facility] Aspartate Aminotransferase 22 0 - 39 unit/L [facility] Alanine Aminotransferase 32 0 - 55 unit/L [facility] Alkaline Phosphatase 63 40 - 120 unit/L [facility] Bilirubin, Total 0.6 0.2 - 1.3 mg/dL [facility] Bilirubin, Direct 0.2 0.0 - 0.3 mg/dL [facility] Est Glomerular Filtration Rate >60 >=60 [facility] Comment: This estimated GFR [...] the following links into your internet browser. [email or web address] Blood specimen (specimen) 11/05/2016 11:16 AM EST 11/05/2016 11:31 AM EST Narrative Resulting Agency Comment Spec In Lab Shola Ramirez MD CHEMISTRY ORDERABLES Performing Organization Address [facility] Co de Phone Number [facility] [place] [address] * Hepatitis C Antibody (11/05/2016 11:16 AM EST) Pathologist [facility] Hepatitis C Antibody Negative Negative [facility] Blood specimen (specimen) 11/05/2016 11:16 AM EST 11/05/2016 11:31 AM EST Narrative Resulting Agency Comment Spec In Lab Shola Ramirez MD CHEMISTRY ORDERABLES Performing Organization Address [facility] Co de Phone Number [facility] [place] [address] * Hepatitis B Surface Antibody (11/05/2016 11:16 AM EST) Pathologist [facility] Hepatitis B Surface Antibody, Quantitative 10.9 IU/L [facility] Comment: rechecked-ds HepB Surface Ab Quant: Unvaccinated: < 8.5 IU/L Vaccinated: > 11.5 IU/L Hepatitis B Surface Antibody Indeterminate [facility] Comment: Unable to determine if the antibody is present at concentrations consistent with immunity to HBV infection. Expected Results: Vaccinated: Positive Unvaccinated: Negative Blood specimen (specimen) 11/05/2016 11:16 AM EST 11/05/2016 11:31 AM EST Narrative Resulting Agency Comment Spec In Lab Shola Ramirez MD CHEMISTRY ORDERABLES Performing Organization Address City/[facility] Co de Phone Number [facility] [place] [address] * Hepatitis B Surface Antigen (11/05/2016 11:16 AM EST) Hepatitis B Surface Antigen Negative Negative [facility] Blood specimen (specimen) 11/05/2016 11:16 AM EST 11/05/2016 11:31 AM EST Narrative Resulting Agency Comment Spec In Lab Shola Ramirez MD CHEMISTRY ORDERABLES Performing Organization Address [facility] Co de Phone Number [facility] [place] [address] * Hepatitis B Core Antibody, Total (11/05/2016 11:16 AM EST) Hepatitis B Core Antibody Negative Negative [facility] Blood specimen (specimen) 11/05/2016 11:16 AM EST 11/05/2016 11:31 AM EST Narrative Resulting Agency Comment Spec In Lab Shola Ramirez MD CHEMISTRY ORDERABLES Performing Organization Address [facility] Co de Phone Number [facility] [place] [address] * Uric acid (11/05/2016 11:16 AM EST) Uric Acid 6.6 3.5 - 8.5 mg/dL [facility] Blood specimen (specimen) 11/05/2016 11:16 AM EST 11/05/2016 11:31 AM EST Narrative Resulting Agency Comment Spec In Lab Shola Ramirez MD CHEMISTRY ORDERABLES [facility] [place] [address] documented in this encounter Visit Diagnoses Diagnosis Gout of multiple sites, unspecified cause, unspecified chronicity Primary osteoarthritis involving multiple joints Elevated LFTs Other abnormal blood chemistry Swelling of knee joint, right Effusion of lower leg joint documented in this encounter Care Teams Dedicated Local Truck Driver Relationship Specialty Start Date End Date None None PCP - General 08/11/10 06/20/22 documented as of this encounter
--- OUTSIDE RECORDS SUMMARY | 2024-08-07 14:42 | XMS_ITS | Encounter Summary ---
Author Organization [facility] Address [facility] [place] [address] Care Team Providers Care Green Chain Offbearer Name Role Phone Belkys Houston MD Primary Care Provider [phone] Reason for Visit * Auth/Cert (Routine) Specialty [...] EGD, UPPER GI ENDOSCOPY Maite Barraza MD [address] [place] [address] [facility] Referral ID Status Reason Start Date Expiration Date Visits Re quested Visits Authorized [id number] 1 1 Encounter Details Date Type Department Care Team (Latest Contact Info) Description 10/25/2022 11:21 AM EST - 10/25/2022 3:09 PM [facility] Hospital Encounter PACU at [address] [phone] Maite Barraza MD [address] [place] [address] Discharge Disposition: Home Social History Tobacco Use [...] colonoscopy for follow up diverticulitis 2020 at [facility] with 1 polyp and diverticulosis. Had abd [...] Barraza MD Gastroenterology 10/25/2022 1:12 PM Pager #[phone] documented in this encounter Plan of Treatment [...] 1:24 PM EST Upper GI Endoscopy, Diagnostic (90794) 10/25/2022 1:10 PM EST black tarry stools Colonoscopy, Diagnostic (36317) 10/25/2022 1:10 PM EST black tarry stools [...] PM EST 10/25/2022 1:56 PM EST Narrative [facility] - 10/25/2022 1:56 PM EST Specimen requisition ordered. ??Separate Pathology report to follow Maite Barraza MD PATHOLOGY/CYTOLOGY O RDERABLES [facility] [place] [address] * Specimen to Pathology (10/25/2022 1:56 PM EST) AP Specimen 10/25/2022 1:56 PM EST 10/25/2022 1:56 PM EST Narrative [facility] - 10/25/2022 1:56 PM EST Specimen requisition ordered. ??Separate Pathology report to follow Maite Barraza MD PATHOLOGY/CYTOLOGY O KLEBER Performing Organization Address [facility] [place] [address] * Specimen to Pathology (10/25/2022 1:56 PM EST) AP Specimen 10/25/2022 1:56 PM EST 10/25/2022 1:56 PM EST Narrative [facility] - 10/25/2022 1:56 PM EST Specimen requisition ordered. ??Separate Pathology report to follow Maite Barraza MD PATHOLOGY/CYTOLOGY O KLEBER Performing Organization Address [facility] [place] [address] * Surgical Pathology Report (10/25/2022 1:24 PM EST) Final Diagnosis [id number] ? Location: [facility]; [facility]; A The signing pathologist has (i) examined [...] MD Verified: ??10/26/2022 13:00 ??Pathologist Performed at: ??[facility] Dept of Pathology, [address] [place] [address] Automobile Carpets Molder: Florina Gordillo MD, ??CLIA Certificate: [id number] SPECIMEN(S) SUBMITTED A - Distal esophagus bx, biopsy (Multiple) B - Cecal polyp, excision (1) C - Descending colon polyp, excision (1) D - Sigmoid colon polyps, excision (3) CLINICAL INFORMATION E[facility]/[place] - Black, tarry stools A - Esophagitis [...] single cassette. ??clc 10/26/2022 1:00 PM EST [facility] GI Biopsy 10/25/2022 1:24 PM EST 10/25/2022 1:24 PM EST GI Biopsy 10/25/2022 1:24 PM EST 10/25/2022 1:24 PM EST GI Biopsy 10/25/2022 1:24 PM EST 10/25/2022 1:24 PM EST GI Biopsy 10/25/2022 1:24 PM EST 10/25/2022 1:24 PM EST Maite Barraza MD PATHOLOGY/CYTOLOGY O TROYERAHENRRY [facility] [place] [address] [facility] [address] [place] [address] * Specimen to Pathology (10/25/2022 1:24 PM EST) AP Specimen 10/25/2022 1:24 PM EST 10/25/2022 1:24 PM EST Narrative [facility] - 10/25/2022 1:24 PM EST Specimen requisition ordered. ??Separate Pathology report to follow Maite Barraza MD PATHOLOGY/CYTOLOGY O KLEBER [facility] [place] [address] * Patient Instructions (10/25/2022 12:34 PM EST) [...] procedure please call Maite Barraza MD at #[phone] After 5pm Tuesday-Tuesday and on weekends or holidays please call [phone] and the hospital mold yard crane operator can page the iron and steel work supervisor ?gastroenterolo gist to return your call. Maite aBrraza MD ___ Maite Barraza MD 10/25/2022 1:27:30 PM This report has been signed electronically. [employer] 10/25/2022 12:3 4 PM EST Maite Barraza MD INFORMATIONAL ONL Y [employer] * UPPER GI ENDOSCOPY (10/25/2022 12:34 PM EST) UPPER GI ENDOSCOPY ___ Patient Name: Demetrio Rivers Procedure Date: 10/25/2022 12:34 PM ?Attending MD: Maite Barraza MD Date of : 1975 ? Order #: [id number] Age: 46 ?Instrument Name: [id number] ___ Procedure: ? Upper GI endoscopy Indications: [...] nurse, the ? anesthesiologist and the ? refrigerator repair technician. The procedure was ? verified in [...] Procedure Code(s): ? --- Professional --- ? 74948, Esophagogastroduode noscopy, ? flexible, transoral; with biopsy, [...] Melena (includes ? Hematochezia) CPT copyright 202 [employer]. All rights reserved. The codes documented in this report are preliminary and upon manager drug review may be revised to meet current [...] procedure please call Maite Barraza MD at #[phone] After 5pm Tuesday-Tuesday and on weekends or holidays please call [phone] and the hospital mold yard crane operator can page the iron and steel work supervisor ?gastroenterolo gist to return your call. Maite [...] Date of : 1975 ? Order #: [id number] Age: 46 ?Instrument Name: [id number] ___ Procedure: ? Colonoscopy Indications: ? Screening [...] nurse, the ? anesthesiologist and the ? refrigerator repair technician. The procedure was ? verified in [...] Procedure Code(s): ? --- Professional --- ? 69598, Colonoscopy, flexible; with ? removal of tumor(s), [...] ? abscess without bleeding CPT copyright 2020 [employer]. All rights reserved. The codes documented in this report are preliminary and upon manager drug review may be revised to meet current [...] (Due) documented in this encounter Care Teams Green Chain Offbearer Relationship Specialty Start Date End Date Belkys Houston MD [address] [place] [address] PCP - General Family Medicine 06/21/22 08/11/23 documented as of this encounter
--- OUTSIDE RECORDS SUMMARY | 2024-08-07 14:42 | XMS_ITS | Encounter Summary ---
Author Organization [facility] Address [facility] [place] [address] Care Team Providers Care Outreach Educator Name Role Phone None Primary Care Provider Unavailabl e Encounter Details Date Type Department Care Team (Latest Contact Info) Description 09/14/2016 11:00 AM EST Office Visit Rheumatology at [facility] [place] [address] Dana Rod MD [facility] [place] [address] Chronic pain of both knees; Primary osteoarthritis [...] AM EST) Body Fluid Culture No growth [facility] Gram Stain Cytocentrifuge Gram Stain performed White Blood Cells seen No microorganisms seen. [facility] Synovial fluid specimen (specimen) 09/14/2016 11:40 AM EST 09/14/2016 12:17 PM EST Comment:RT KNEE Narrative Resulting Agency Comment Spec In Lab Antonina Foreman DO MICROBIOLOGY - GEN ERAL ORDERABLES Performing Organization Address City/[facility]/ZIP Co de Phone Number [facility] [place] [address] * Crystal Exam Body Fluid (09/14/2016 11:40 AM EST) Crystal BF Type Synovial fl [facility] Crystal Exam, Fld See Comment [facility] Comment: _ moderate intracellular and extracellular crystals seen, consistent with uric acid. Synovial fluid specimen (specimen) 09/14/2016 11:40 AM EST 09/14/2016 1:01 PM EST Narrative Resulting Agency Comment Spec In Lab Antonina Foreman DO BODY FLUIDS AND ST OOLS ORDERABLES Performing Organization Address City/[facility]/ZIP Co de Phone Number [facility] [place] [address] * Cell Count Body Fluid (09/14/2016 11:40 AM EST) Body Fluid Source Synovial fluid [facility] Color, Fld Yellow [facility] Appearance, Fld Slightly Hazy [facility] Nucl Cell BF Ct 1,134 /mcl [facility] Comment: Guidelines listed below apply [...] Neut Absolute BF 374 /mcl [facility] Neutrophil BF 33 % [facility] Lymphocyte BF 8 % [facility] Macrophage BF 41 % [facility] Synovial BF 18 % [facility] Comment:mitotic cells presen t Synovial fluid specimen (specimen) 09/14/2016 11:40 AM EST 09/14/2016 1:01 PM EST Narrative Resulting Agency Comment Spec In Lab Antonina Foreman DO BODY FLUIDS AND ST OOLS ORDERABLES [facility] [place] [address] documented in this encounter Visit Diagnoses Diagnosis Chronic pain of both knees Primary osteoarthritis involving multiple joints Gout of multiple sites, unspecified cause, unspecified chronicity documented in this encounter Care Teams Outreach Educator Relationship Specialty Start Date End Date None None PCP - General 08/11/10 06/20/22 documented as of this encounter
--- OUTSIDE RECORDS SUMMARY | 2024-08-07 14:42 | XMS_ITS | Encounter Summary ---
Author Organization [facility] Address [facility] [place] [address] Care Team Providers Care Clinical Instructor Name Role Phone Belkys Houston MD Primary Care Provider + [phone] Reason for Visit * Reason Onset Date Comments Establish Care 07/06/2022 Encounter Details Date Type Department Care Team (Late st Contact Info) Description 07/06/2022 Telephone Primary Care at [address] [address] Pema Mcrae Establish Care Social [...] filedocumented in this encounter Care Teams Clinical Instructor Relationship Specialty Start Date End Date Belkys Houston MD [address] [place] [address] PCP - General Family Medicine 06/21/22 08/11/23 documented as of this encounter
--- OUTSIDE RECORDS SUMMARY | 2024-08-07 14:42 | XMS_ITS | Encounter Summary ---
Author Organization [facility] Address [facility] [place] [address] Care Team Providers Care Powder Core Tester Name Role Phone Belkys Houston MD Primary Care Provider [phone] Encounter Details Date Type Department Care Team (Latest Contact Info) Description 07/19/2022 12:40 PM EDT Laboratory Appointment Lab at [address] [address] Lower abdominal pain; Fatigue, unspecified [...] 12:20 PM EDT) Neutrophil % 63.5 % [facility] Neutrophil Absolute 4.86 1.70 - 6.10 x10(3)/[facility] Lymph % 27.3 % [facility] Lymphocytes Abs 2.1 0.9 - 3.2 x10(3)/[facility] Monocyte % 6.0 % [facility] Monocyte Abs 0.5 0.3 - 0.9 x10(3)/[facility] Eos % 2.4 % [facility] Eosinophils Abs 0.2 0.0 - 0.4 x10(3)/[facility] Basophil % 0.4 % [facility] Baso Absolute 0.0 0.0 - 0.1 x10(3)/[facility] Immature Gran % 0.40 % [facility] Comment: Immature granulocytes(IG's)percentage and absolute count will include metamyelocytes, myelocytes, and promyelocytes. Blood smears from CBCs yielding IG's will be scanned manually for concordance. If this scan disagrees with the automated IG or if promyelocytes are noted, a manual differential will be performed. Immature Gran Absolute 0.03 0.00 - 0.04 x10(3)/[facility] Blood 07/19/2022 12:2 0 PM EDT 07/19/2022 12:20 PM EDT Narrative Resulting Agency Comment Spec In Lab Jacobo Rodriguez PSYCHIATRIC ARNP HEMATOLOGY ORDERABLE S [facility] [address] [place] [address] * Hemogram (07/19/2022 12:20 PM EDT) White Blood Cell 7.6 4.0 - 9.5 x10(3)/[facility] Red Blood Cell 4.65 4.58 - 5.54 x10(6)/[facility] Hemoglobin 14.6 13.7 - 16.5 g/dL [facility] Hematocrit 42.4 40.5 - 48.5 % [facility] Mean Cell Volume 91.2 82.9 - 93.1 fL [facility] Mean Cell Hemoglobin 31.4 27.5 - 32.1 pg [facility] Mean Cell Hemoglobin Concentration 34.4 32.0 - 35.7 g/dL [facility] Platelet 298 145 - 357 x10(3)/[facility] RDW Standard Deviation 40.4 36.0 - 45.0 fL [facility] RDW coefficient of variation 12.2 11.4 - 13.8 % [facility] Mean Platelet Volume 9.3 7.6 - 12.9 fL [facility] NRBC% auto 0.0 % [facility] NRBC Absolute 0.000 0.000 - 0.000 x10(3)/[facility] Blood 07/19/2022 12:2 0 PM EDT 07/19/2022 12:20 PM EDT Narrative Resulting Agency Comment Spec In Lab Jacobo Jah Jennifer PSYCHIATRIC ARNP HEMATOLOGY ORDERABLE S Performing Organization Address [facility] Co de Phone Number [facility] [address] [place] [address] * Iron and TIBC (07/19/2022 12:20 PM EDT) Iron 135 45 - 160 mcg/dL [facility] TIBC 319 250 - 450 mcg/dL [facility] Iron Saturation 42 20 - 50 % [facility] Blood 07/19/2022 12:2 0 PM EDT 07/19/2022 12:20 PM EDT Narrative Resulting Agency Comment Spec In Lab Jacobo Rodriguez PSYCHIATRIC ARNP CHEMISTRY ORDERABLES Performing Organization Address City/[facility]/ZIP Co de Phone Number [facility] [address] [place] [address] * Creatinine (07/19/2022 12:20 PM EDT) Creatinine 1.06 0.80 - 1.50 mg/dL [facility] Est Glomerular Filtration Rate 88 >=60 mL/min/1. 73 m?? [facility] Comment: This patient's estimated GFR [...] Agency Comment Spec In Lab Jacobo Rodriguez PSYCHIATRIC ARNP CHEMISTRY ORDERABLES [facility] [address] [place] [address] documented in this encounter Visit Diagnoses Diagnosis Lower abdominal pain Abdominal pain, other specified site Fatigue, unspecified type Black tarry stools Blood in stool documented in this encounter Care Teams Powder Core Tester Relationship Specialty Start Date End Date Belkys Houston MD [address] [place] [address] PCP - General Family Medicine 06/21/22 08/11/23 documented as of this encounter
--- OUTSIDE RECORDS SUMMARY | 2024-08-07 14:42 | XMS_ITS | Encounter Summary ---
Author Organization [facility] [place] [address] Care Team Providers Care Printing Supervisor Name Role Phone None Primary Care Provider Unavailabl e Reason for Visit * Reason Onset Date Comments Other 09/15/2016 Follow Up Encounter Details Date Type Department Care Team (Late st Contact Info) Description 09/15/2016 Telephone Rheumatology at [facility] [place] [phone] Cassandra Moe RN Other (Follow Up) Social [...] not get message about prescriptions. He will worm picker and start today. * Telephone Encounter - Cassandra Moe RN - 09/15/2016 11:27 AM EST ----- Message from Dana Rod MD sent at 09/15/2016 10:03 AM EST ----- Hi Mo, Can you please let him know I have called Allopurinol 100 mg daily in and Colchicine 0.6 mg daily at [facility]. He should start both simultaneously and I will see him back in f/u. Secretarieswill call him with appointment. documented in this encounter Plan of Treatment Not on file documented as of this encounter Visit Diagnoses Not on filedocumented in this encounter Care Teams Printing Supervisor Relationship Specialty Start Date End Date None None PCP - General 08/11/10 06/20/22 documented as of this encounter
--- OUTSIDE RECORDS SUMMARY | 2024-08-07 14:42 | XMS_ITS | Encounter Summary ---
Author Organization [facility] Address [facility] [place] [address] Care Team Providers Care Cut Order Hand Name Role Phone Belkys Houston MD Primary Care Provider [phone] Reason for Visit * Auth/Cert (Routine) Specialty [...] EGD, UPPER GI ENDOSCOPY Maite Barraza MD [address] [place] [address] [place] [address] [facility] Referral ID Status Reason Start Date Expiration Date Visits Re quested Visits Authorized [id number] 1 1 Encounter Details Date Type Department Care Team ([facility] st Contact Info) Description 10/25/2022 1:11 PM EST Anesthesia Event Endoscopy at [address] [id number] Rachel Villarreal MD [address] [place] [address] [place] [address] Anesthesia Record Procedure Summary Procedure Name Responsible [...] 664.29 mg Glycopyrrolate 0.2 mg Benzocaine 20% Hankamer 1 spray lactated ringers infusion 600 mL * Agents Name O2 Auxiliary Flowmeter 1 * Blood No blood administrations on file. Lines, Drains, and Airways Type Details Placement Removal (RETIRED) Peripheral IV Line - Single Lumen 07/19/22; 1346; median cubital vein (antecubital fossa), left; [id number] catheter system; 20 gauge; Sherine Szymanski; LDA not present upon assessment; 11/30/22; 1017 07/19/22 1346 by Sherine Keene 11/30/22 1017 by Madison Holly, TETE (RETIRED) Peripheral IV Line - Single Lumen 10/25/22; 1141; metacarpal vein (top of hand), right; [id number] catheter system; Anatomical Landmarks; 20 gauge; Deandra Bentley RN; 10/25/22; 1520 10/25/22 1141 by Amber [...] Procedure Summary Date: 10/25/22 Room / Location: [facility] 1 / [facility] Anesthesia Start: 1311 Anesthesia Stop: 1402 [...] mg documented in this encounter Care Teams Cut Order Hand Relationship Specialty Start Date End Date Belkys Houston MD [address] [place] [address] PCP - General Family Medicine 06/21/22 08/11/23 documented as of this encounter
--- OUTSIDE RECORDS SUMMARY | 2024-08-07 14:42 | XMS_ITS | Encounter Summary ---
Author Organization [facility] Address [facility] [place] [address] Care Team Providers Care Harbor Engineer Name Role Phone Belkys Houston MD Primary Care Provider [phone] Encounter Details Date Type Department Care Team (Latest Contact Info) Description 07/19/2022 3:40 PM EDT Laboratory Appointment Lab at [address] [phone] Lower abdominal pain; Bladder wall [...] EDT) Glucose, Urine Dipstick Negative Negative mg/dL [facility] Protein, Urine Dipstick Negative Negative mg/dL [facility] Bilirubin, Urine Dipstick Negative Negative mg/dL [facility] Comment: Clinical correlation required for positive Urine Bilirubin results as false positive may occur with some drugs and drug related products. If a false positive is suspected a serum total bilirubin should be considered if clinically indicated. Urobilinogen, Urine Dipstick Normal Normal mg/dL [facility] pH, Urn (dipstick) 5.0 5.0 - 8.0 [facility] Blood, Urine Dipstick Negative Negative mg/dL [facility] Ketone, Urine Dipstick Negative Negative mg/dL [facility] Nitrite, Urine Dipstick Negative Negative [facility] Leukocytes, Urine Dipstick Negative Negative mcL [facility] Appearance, Urine Dipstick Clear Clear [facility] Specific [place] Urine Automated >=1.030(A) 1.005 - 1.030 [facility] Color, Urine Dipstick Yellow Yellow [facility] Reflex to Culture No [facility] Clean Catch Urine 07/19/2022 4:17 PM EDT 07/19/2022 4:17 PM EDT Narrative Resulting Agency Comment Spec In Lab Jacobo Rodriguez STAVE JOINTER URINE ORDERABLES [facility] [address] [place] [address] documented in this encounter Visit Diagnoses Diagnosis Lower abdominal pain Abdominal pain, other specified site Bladder wall thickening Other specified disorders of bladder documented in this encounter Care Teams Harbor Engineer Relationship Specialty Start Date End Date Belkys Houston MD [address] [place] [address] PCP - General Family Medicine 06/21/22 08/11/23 documented as of this encounter
--- OUTSIDE RECORDS SUMMARY | 2024-08-07 14:42 | XMS_ITS | Encounter Summary ---
Author Organization [facility] Address [facility] [place] [address] Care Team Providers Care Scooping Machine Tender Name Role Phone Belkys Houston MD Primary Care Provider Reason for Referral * Diagnostic Test (STAT) - Closed Specialty Diagnoses / Procedures Referred By Contac t Referred To Contact Radiology Diagnoses Lower abdominal pain Procedures CT Abdomen & Pelvis w Contrast Jacobo Rodriguez APRN [address] [place] [address] [facility] Cat Scan [address] [place] [address] Referral ID Status Reason Start Date Expiration Date V isits Requested Visits Authorized [id number] Closed Specialty Service Requested 07/19/2022 01/17/2024 1 1 Reason for Visit * Diagnostic Test (STAT) - Closed Specialty Diagnoses / Procedures Referred By Contac t Referred To Contact Radiology Diagnoses Lower abdominal pain Procedures CT Abdomen & Pelvis w Contrast Jacobo Rodriguez APRN [address] [place] [address] [facility] Cat Scan [address] [place] [address] Referral ID Status Reason Start Date Expiration Date V isits Requested Visits Authorized [id number] Closed Specialty Service Requested 07/19/2022 01/17/2024 1 1 Encounter Details Date Type Department Care Team (Latest Contact Info) Description 07/19/2022 12:10 PM EDT - 07/19/2022 11:59 PM EDT Hospital Encounter CAT Scan at [place] [address] [facility] [place] [address] Jacobo Rodriguez, DIAMOND [address] [facility] [place] [address] Lower abdominal pain Discharge Disposition: Home Social [...] who have questions please contact the health primary care nurse that requested your imaging first. ? Electronically signed by: NILES BARAHONA MD, [facility] ([phone]), at 07/19/2022 2:13 PM Narrative 07/19/2022 2:13 [...] patients who have questions please contactthe health primary care nurse that requested your imaging first. Electronically signed by: NILES BARAHONA MD, [facility] ([phone]), at 07/19/2022 2:13 PM Jacobo Rodriguez LEAD CYTOGENETIC TECHNOLOGIST IMG CT ORDERABLES documented in this encounter [...] mLs documented in this encounter Care Teams Scooping Machine Tender Relationship Specialty Start Date End Date Belkys Houston MD [address] [place] [address] PCP - General Family Medicine 06/21/22 08/11/23 documented as of this encounter
--- OUTSIDE RECORDS SUMMARY | 2024-08-07 14:42 | XMS_ITS | Encounter Summary ---
Author Organization [facility] Address [facility] [place] [address] Care Team Providers Care Receptionist Telephone Operator Name Role Phone None Primary Care Provider Unavailabl e Reason for Visit * Consultation (Routine) - Closed Specialty Diagnoses / Procedures Referred By Greg charles Referred To Contact Rheumatology Diagnoses Bilateral chronic knee pain Tony Lees MD [facility] [place] [address] [facility] [address] [place] [address] Referral ID Status Reason Start Date Expiration Date V isits Requested Visits Authorized [id number] Closed Consult, Test & Treat 09/07/2016 09/07/2017 1 1 Encounter Details Date Type Department Care Team (Late st Contact Info) Description 09/09/2016 11:00 AM EST Office [place] [address] Demetrio Ferrer MD [facility] [place] [address] Chronic pain of both knees Social History [...] 11:00 AM EST 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 Hands: Normal middleware solutions architect and claw. SJC/TJC 0/0. Hips: Full motion, [...] Uric Acid 9.7(H) 3.5 - 8.5 mg/dL [facility] Blood specimen (specimen) 09/14/2016 11:58 AM EST 09/14/2016 12:08 PM EST Narrative Resulting Agency Comment Spec In Lab Demetrio Ferrer MD CHEMISTRY ORDERABLES [facility] [place] [address] * Comprehensive metabolic panel (non-fasting) (09/14/2016 11:58 AM EST) Glucose 113 65 - 199 mg/dL [facility] Comment:Diabetes: >=200 mg/d L plus symptoms Blood Urea Nitrogen 17 10 - 20 mg/dL [facility] Creatinine 1.22 0.80 - 1.50 mg/dL [facility] Comment: Please note that the pediatric reference intervals supplied above were not validated at [facility]. Results from pediatric patients should be interpreted in conjunction to the patient's age, height and muscle mass. Sodium 140 135 - 145 mmol/L [facility] Potassium 4.7 3.5 - 5.0 mmol/L [facility] Comment: Please note: ??Patients with WBC >100,000 may have falsely elevated Potassium levels. ??For accurate Potassium quantification in these patients send serum separator tube (gold top) for subsequent determinations. ??Contact the Clinical Chemistry Laboratory if there are any questions. Chloride 103 98 - 107 mmol/L [facility] Carbon Dioxide 24 22 - 31 mmol/L [facility] Anion Gap 13 5 - 15 mmol/L [facility] Calcium 9.6 8.5 - 10.5 mg/dL [facility] Protein, Total 7.7 6.1 - 8.0 gm/dL [facility] Albumin 4.4 3.2 - 5.2 gm/dL [facility] Aspartate Aminotransferase 29 0 - 39 unit/L [facility] Alanine Aminotransferase 36 0 - 55 unit/L [facility] Alkaline Phosphatase 59 40 - 120 unit/L [facility] Bilirubin, Total 0.4 0.2 - 1.3 mg/dL [facility] Bilirubin, Direct 0.1 0.0 - 0.3 mg/dL [facility] Est Glomerular Filtration Rate [...] the following links into your internet browser. [email or web address] Blood specimen (specimen) 09/14/2016 11:58 AM EST 09/14/2016 12:08 PM EST Narrative Resulting Agency Comment Spec In Lab Demetrio Ferrer MD CHEMISTRY ORDERABLES [facility] [place] [address] * CRP, cardiac risk (HS CRP) (09/14/2016 11:58 AM EST) C-Reactive Protein High Sensitivity 0.8 mg/L [facility] Comment: For cardiac risk [...] 2003; 107:363-369 CRP Cardiac Risk Low Risk [facility] Blood specimen (specimen) 09/14/2016 11:58 AM EST 09/14/2016 12:08 PM EST Narrative Resulting Agency Comment Spec In Lab Demetrio Ferrer MD CHEMISTRY ORDERABLES [facility] [place] [address] documented in this encounter Visit Diagnoses Diagnosis Chronic pain of both knees documented in this encounter Care Teams Receptionist Telephone Operator Relationship Specialty Start Date End Date None None PCP - General 08/11/10 06/20/22 documented as of this encounter
--- OUTSIDE RECORDS SUMMARY | 2024-08-07 14:42 | XMS_ITS | Encounter Summary ---
Author Organization [facility] Address [facility] [place] [address] Care Team Providers Care Craft Coordinator Name Role Phone Belkys [place] MD Primary Care Provider Reason for Referral * Diagnostic Test (Routine) - Closed Specialty Diagnoses / Procedures Referred By Contac t Referred To Contact Gastroenterology Diagnoses Black tarry stools Procedures PRO COLONOSCOPY, DIAGNOSTIC Jacobo Rodriguez APRN [address] [place] [address] [facility] [address] [place] [address] Referral ID Status Reason Start Date Expiration Date V isits Requested Visits Authorized [id number] Closed Test Only 07/19/2022 07/19/2023 1 1 * Diagnostic Test (STAT) - Closed Specialty Diagnoses / Procedures Referred By Contac t Referred To Contact Radiology Diagnoses Lower abdominal pain Procedures CT Abdomen & Pelvis w Contrast Jacobo Rodriguez SHIP CARPENTER [address] [place] [address] [facility] Rad Cat Scan [address] [place] [address] Referral ID Status Reason Start Date Expiration Date V isits Requested Visits Authorized [id number] Closed Specialty Service Requested 07/19/2022 01/17/2024 1 1 Reason for Visit * Reason Comments Abdominal Pain Bilateral lower Encounter Details Date Type Department Care Team ([facility] st Contact Info) Description 07/19/2022 11:20 AM EDT Office Visit [facility] [place] [address] [place] [address] Jacobo Rodriguez, SHIP CARPENTER [address] [facility] [place] [address] Fatigue, unspecified type; Black tarry stools; Lower [...] through Care Everywhere. * GI Bleeding: Lower (Liberian) * Fatigue (Liberian) * Abdominal Pain (Liberian) documented in this encounter Progress Notes * [...] EDT) Glucose, Urine Dipstick Negative Negative mg/dL [facility] Protein, Urine Dipstick Negative Negative mg/dL [facility] Bilirubin, Urine Dipstick Negative Negative mg/dL [facility] Comment: Clinical correlation required for positive Urine Bilirubin results as false positive may occur with some drugs and drug related products. If a false positive is suspected a serum total bilirubin should be considered if clinically indicated. Urobilinogen, Urine Dipstick Normal Normal mg/dL [facility] pH, Urn (dipstick) 5.0 5.0 - 8.0 [facility] Blood, Urine Dipstick Negative Negative mg/dL [facility] Ketone, Urine Dipstick Negative Negative mg/dL [facility] Nitrite, Urine Dipstick Negative Negative [facility] Leukocytes, Urine Dipstick Negative Negative mcL [facility] Appearance, Urine Dipstick Clear Clear [facility] Specific [place] Urine Automated >=1.030(A) 1.005 - 1.030 [facility] Color, Urine Dipstick Yellow Yellow [facility] Reflex to Culture No [facility] Clean Catch Urine 07/19/2022 4:17 PM EDT 07/19/2022 4:17 PM EDT Narrative Resulting Agency Comment Spec In Lab Jacobo Rodriguez APRN URINE ORDERABLES [facility] [address] [place] [address] * CT Abdomen & Pelvis w Contrast [...] who have questions please contact the health neonatal critical care nurse that requested your imaging first. ? Electronically signed by: NILES BARAHONA MD, [facility] ([phone]), at 07/19/2022 2:13 PM Narrative 07/19/2022 2:13 [...] patients who have questions please contactthe health neonatal critical care nurse that requested your imaging first. Electronically signed by: NILES BARAHONA MD, [facility] ([phone]), at 07/19/2022 2:13 PM Jacobo Jah Jennifer SHIP CARPENTER IMG CT ORDERABLES * Creatinine (07/19/2022 12:20 PM EDT) Creatinine 1.06 0.80 - 1.50 mg/dL [facility] Est Glomerular Filtration Rate 88 >=60 mL/min/1. 73 m?? [facility] Comment: This patient's estimated GFR was [...] Agency Comment Spec In Lab Jacobo Rodriguez SHIP CARPENTER CHEMISTRY ORDERABLES Performing Organization Address [facility] Co de Phone Number [facility] [address] [place] [address] * Iron and TIBC (07/19/2022 12:20 PM EDT) Iron 135 45 - 160 mcg/dL [facility] TIBC 319 250 - 450 mcg/dL [facility] Iron Saturation 42 20 - 50 % [facility] Blood 07/19/2022 12:2 0 PM EDT 07/19/2022 12:20 PM EDT Narrative Resulting Agency Comment Spec In Lab Jacobo Rodriguez SHIP CARPENTER CHEMISTRY ORDERABLES Performing Organization Address [facility] de Phone Number [facility] [address] [place] [address] documented in this encounter Visit Diagnoses Diagnosis Fatigue, unspecified type Black tarry stools Blood in stool Lower abdominal pain Abdominal pain, other specified site Bladder wall thickening Other specified disorders of bladder Lower abdominal pain Abdominal pain, other specified site documented in this encounter Care Teams Craft Coordinator Relationship Specialty Start Date End Date Belkys [place] MD [address] [place] [address] PCP - General Family Medicine 06/21/22 08/11/23 documented as of this encounter
--- OUTSIDE RECORDS SUMMARY | 2024-08-07 14:42 | XMS_ITS | Encounter Summary ---
Author Organization [facility] Address [facility] [place] [address] Care Team Providers Care Bobbin Marker Name Role Phone Belkys [place] MD Primary Care Provider [phone] Encounter Details Date Type Department Care Team [...] on filedocumented in this encounter Care Teams Bobbin Marker Relationship Specialty Start Date End Date Belkys [place] MD [address] [place] [address] PCP - General Family Medicine 06/21/22 08/11/23 documented as of this encounter
--- OUTSIDE RECORDS SUMMARY | 2024-08-07 14:42 | XMS_ITS | Encounter Summary ---
Author Organization [facility] [place] [address] Care Team Providers Care Ordnance Mechanic Name Role Phone None Primary Care Provider Unavailabl e Reason for Referral * Consultation (Routine) - Closed Specialty Diagnoses / Procedures Referred By Contac t Referred To Contact Rheumatology Diagnoses Bilateral chronic knee pain Tony Lees MD [facility] [place] [address] [facility] Rheumatology [address] [place] [phone] Referral ID Status Reason Start Date Expiration Date V isits Requested Visits Authorized [id number] Closed Consult, Test & Treat 09/07/2016 09/07/2017 1 1 * Physical Therapy (Routine) - Closed Specialty Diagnoses / Procedures Referred By Contac t Referred To Contact Physical Therapy Diagnoses Bilateral chronic knee pain Tony Lees MD [facility] [place] [address] [facility] [address] [place] [address] Referral ID Status Reason Start Date Expiration Date V isits Requested Visits Authorized [id number] Closed Evaluate and Treat 09/07/2016 09/07/2017 1 1 Reason for Visit * Reason Comments Knee Pain bilateral knee pain, R>L * Consultation (Urgent) - Specialty Diagnoses / Procedures Referred By Contac t Referred To Contact Orthopaedics Diagnoses CHRONIC WORSENING R KNEE PAIN; EVAL FOR POSSIBLE KNEE REPLACEMENT Procedures Jermain Zurita MD [address] [place] [address] [facility] [address] [place] [address] Referral ID Status Reason Start Date Expiration Date V isits Requested Visits Authorized [id number] Consult, Test & Treat 08/31/2016 08/31/2017 1 1 Encounter Details Date Type Department Care Team (Late st Contact Info) Description 09/07/2016 8:30 AM EST Office [place] [address] Tony Lees MD [facility] DR ORTHOPAEDIC SURGERY [place] [phone] Bilateral chronic knee pain; Chronic pain of [...] knee arthroscopic meniscectomy 2 years ago in [place] Demetrio was referred from Jermain Chua MD [address] [place] [address] for evaluation of knee pain. I.D.: Demetrio [...] less than $75,000 # People Supported 1 Venezuelan, , No, not Venezuelan// Race White Health Literacy Extremely Currently working Yes Current job situation Full-time [facility] Response 09/07/2016 KOOS JR Scores 39.63 Spine [facility] Response 09/07/2016 KOOS JR Scores 39.63 ALLERGIES [...] not useillicit drugs. 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
--- OUTSIDE RECORDS SUMMARY | 2024-08-07 14:42 | XMS_ITS | Encounter Summary ---
Author Organization [facility] Address [facility] [place] [address] Care Team Providers Care Esl Teacher Name Role Phone Belkys [place] MD Primary Care Provider [phone] Reason for Visit * Reason Comments Establish Care Encounter Details Date Type Department Care Team (Latest Contact Info) Description 09/17/2022 3:30 PM EST Office Visit Primary Care at [address] [phone] Enma Ngo, BACK PADDER [address] [place] [address] [phone] Annual physical exam; Primary hypertension; Primary osteoarthritis [...] this encounter Progress Notes * Enma Ngo, BACK PADDER - 09/17/2022 3:30 PM EST Assessment/Plan: 1. [...] patient visit. He was getting care at [facility] in [place], [place] and moved here. He has ran [...] leg documented in this encounter Care Teams Esl Teacher Relationship Specialty Start Date End Date Belkys [place] MD [address] [place] [phone] PCP - General Family Medicine 06/21/22 08/11/23 documented as of this encounter
--- OUTSIDE RECORDS SUMMARY | 2024-08-07 14:42 | XMS_ITS | Encounter Summary ---
Author Organization [facility] [place] [address] Care Team Providers Care Corporate Paralegal Name Role Phone None Primary Care Provider Unavailabl e Encounter Details Date Type Department Care Team (Late st Contact Info) Description 10/25/2016 [place] [address] Cassandra Moe, RN Social History Tobacco Use [...] on filedocumented in this encounter Care Teams Corporate Paralegal Relationship Specialty Start Date End Date None None PCP - General 08/11/10 06/20/22 documented as of this encounter
--- OUTSIDE RECORDS SUMMARY | 2024-08-07 14:42 | XMS_ITS | Encounter Summary ---
Author Organization [facility] [place] [address] Care Team Providers Care Terminologist Name Role Phone None Primary Care Provider Unavailabl e Encounter Details Date Type Department Care Team (Late st Contact Info) Description 10/22/2016 Telephone [place] [address] Cassandra Moe, RN Social History Tobacco Use [...] on filedocumented in this encounter Care Teams Terminologist Relationship Specialty Start Date End Date None None PCP - General 08/11/10 06/20/22 documented as of this encounter
--- NOTE | 2024-08-07 14:58 | W.PC.ACHO ---
Registration Status: Primary Language: Preferred Language: ED Information & Data Chief Complaint Abd Prob 08/07/24 10:32 Triage Note Pt reports intense back pain 08/07/24 09:43 Aleksandr, yesterday it moved to his abdomen bellow his umbilicus, now the pain is severe, cramping, sharp, and is bloated Medical / Surgical History (Last Reviewed 06/15/24 @ 12:45 by Nakita Lennon) Acute diverticulitis Syncope Alcohol intoxication Lipoma Gout (Last Updated 06/18/24 @ 12:17 by Cary Randall) History of colonoscopy (~05/2024) History of knee surgery Most Recent Vital Signs Temperature 37 C 08/07/24 14:47 Temperature Source Temporal Artery Scan 08/07/24 14:47 Pulse 84 08/07/24 14:47 Pulse 81 08/07/24 14:30 Respiratory Rate 20 08/07/24 14:47 Respiratory Effort Normal 08/07/24 09:48 Blood Pressure 137/93 H 08/07/24 14:47 Blood Pressure Mean 135 08/07/24 14:16 Blood Pressure Position Sitting 08/07/24 09:49 Pulse Oximetry 97 08/07/24 14:47 Oxygen Delivery Method Room Air 08/07/24 14:47 Oxygen Flow Rate 0 08/07/24 14:47 Pain Level 7 08/07/24 14:47 Allergies Sulfa (Sulfonamide Antibiotics) Allergy (Severe, Verified 08/07/24 09:49) fatal sulfamethoxazole (From Bactrim) Allergy (Severe, Verified 08/07/24 09:49) fatal trimethoprim (From Bactrim) Allergy (Severe, Verified 08/07/24 09:49) fatal Precautions Isolation Standard precaution 08/07/24 09:48 Active Medications Generic Name Dose Route Start Last Admin Trade Name Freq PRN Reason Stop Dose Admin Enoxaparin Sodium 40 mg 08/07/24 14:00 08/07/24 14:35 Enoxaparin 40 Mg/0.4 Ml Syr SC 40 mg Q24H CHAVO Administration Acetaminophen 1,000 mg in 100 mls @ 400 mls/hr 08/07/24 14:00 08/07/24 13:48 Ofirmev IVPB 400 mls/hr Q6H CHAVO Administration Piperacillin Sod/Tazobactam 50 mls @ 100 mls/hr 08/07/24 14:00 08/07/24 13:48 Sod 3.375 gm/ Sodium Chloride IVPB 100 mls/hr Q6H CHAVO Administration Iohexol 100 ml 08/07/24 12:00 08/07/24 11:46 Omnipaque 350 Mg/Ml 100 Ml Btl IJ 09/06/24 23:59 100 ml DIRECTED CHAVO Administration Sodium Chloride 50 ml 08/07/24 11:45 08/07/24 11:46 Normal Saline - Diluent 50 Ml Vial IJ 50 ml .FOR DI USE CHAVO Administration IV IV Catheter Type [Right Saline Lock Antecubital] IV Catheter Gauge [Right 18 Antecubital] Diet Orders Category Date Time Status Nothing Per Oral [DIET] Nutrition 08/07/24 Lunch Active Diagnostics 08/07/24 Range/Units 10:15 WBC 11.82 H (4.4-10.8) 10^3/uL RBC 5.12 (4.36-5.78) 10^6/uL Hgb 16.4 (13.5-17.5) g/dL Hct 47.2 (40.0-50.0) % MCV 92 (80-95) fL MCH 32.0 (27.0-33.0) pg MCHC 34.7 (32.0-36.0) % RDW 12.6 (11.8-14.1) % Plt Count 259 (130-400) 10^3/uL MPV 9.2 (8.0-11.0) fL Immature Gran % 0.5 % Neutrophils % 77.2 % Lymphocytes % 15.0 % Monocytes % 6.5 % Eosinophils % 0.5 % Basophils % 0.3 % Nucleated RBC % 0.0 (0.0-0.3) % Absolute Neutrophils 9.13 H (1.2-6.7) 10^3/uL Absolute Lymphocytes 1.77 (1.2-3.4) 10^3/uL Absolute Monocytes 0.77 (0.1-0.8) 10^3/uL Absolute Eosinophils 0.06 (0.0-0.7) 10^3/uL Absolute Basophils 0.04 (0.0-0.2) 10^3/uL Sodium 138 (136-145) mmol/L Potassium 4.0 (3.5-5.1) mmol/L Chloride 105 (98-107) mmol/L Carbon Dioxide 26.0 (21.0-32.0) mmol/L Anion Gap 7.0 (3-11) mmol/L BUN 13 (7-18) mg/dL Creatinine 1.3 (0.70-1.30) mg/dL Est GFR (CKD-EPI 2020) 68.19 (mL/min/1.73m2) Glucose 113 H (74-106) mg/dL Calcium 9.0 (8.5-10.1) mg/dL Total Bilirubin 0.89 (0.2-1.0) mg/dL AST 20 (15-37) U/L ALT 39 (16-63) U/L Alkaline Phosphatase 83 (46-116) U/L Total Protein 7.5 (6.4-8.2) g/dL Albumin 3.3 L (3.4-5.0) g/dL Intake and Output - 24 Hour Total 08/07/24 09:34 thru 08/07/24 09:43 Weight 108.862 kg Falls Risk Assessment History of Falls No History 08/07/24 09:54 Contributing Factors No Factors 08/07/24 09:54 Ambulatory Aids Independent 08/07/24 09:54 Tubes/Lines W/no contributing factors 08/07/24 09:54 Gait Evaluation No gait disturbance 08/07/24 09:54 Cognition No cognitive impairment 08/07/24 09:54 Fall Total Score 10 08/07/24 09:54 Level of Risk Standard/Low Risk 08/07/24 09:54 Problems (Last Reviewed 06/15/24 @ 12:45 by Nakita Lennon) Acute diverticulitis (Acute) v v v v v v v v v Sending and/or Receiving Nurses: Please use comment section below to note any information pertinent to the patient hand-off not included above. Information / Comments: Patient now present on med/surg floor, resting in bed Report received from: TETE Gooden in ED on 08/07/2024 at 1430
[2024-08-07] MEDS: Ketorolac 15 MG/ML VIAL IVP (15:08)
[2024-08-08] MEDS: ACETAMINOPHEN 1,000 MG/100 ML BAG 400 MG IVPB ×4 (02:05→20:03)
[2024-08-08] MEDS: PIPERACILLIN/TAZO 3.375 GM in Normal Saline 50 ML IVPB ×4 (02:31→20:23)
[2024-08-08 03:11] VITALS: BP 149/92; PULSE 77; RESP 14; TEMP 36.9; O2SAT 97
[2024-08-08] MEDS: Ketorolac 15 MG/ML VIAL IVP (05:56)
[2024-08-08] MEDS: Lactated Ringers 1,000 ML 150 ML IV (06:37)
[2024-08-08 06:59] LABS: Abs Immature Grans 0.05 10^3/uL (0.0-0.06); Absolute Basophil Count 0.04 10^3/uL (0.0-0.2); Absolute Lymphocyte Count 1.59 10^3/uL (1.2-3.4); Absolute Monocyte Count 0.64 10^3/uL (0.1-0.8); Basophils % 0.4 %; Eosinophils % 1.1 %; HCT 43.7 % (40.0-50.0); Immature Grans % 0.6 %; Lymphocytes % 17.8 %; MCH 32.5 pg (27.0-33.0); MCHC 34.3 % (32.0-36.0); MCV 95 fL (80-95); MPV 9.5 fL (8.0-11.0); Monocytes % 7.2 %; Neutrophils % 72.9 %; Platelet Count 244 10^3/uL (130-400); RBC 4.62 10^6/uL (4.36-5.78); RDW 12.8 % (11.8-14.1); RDW-SD 44.2 fL; WBC 8.92 10^3/uL (4.4-10.8)
[2024-08-08 07:10] LABS: Anion Gap 7.1 mmol/L (3-11); BUN 16 mg/dL (7-18); CO2 27.9 mmol/L (21.0-32.0); CREATININE 1.3 mg/dL (0.70-1.30); Chloride 106 mmol/L (98-107); Estimated GFR 68.19 (mL/min/1.73m2); Glucose 97 mg/dL (74-106); Sodium 141 mmol/L (136-145)
[2024-08-08 07:45] VITALS: BP 170/116; PULSE 80; RESP 24; TEMP 36.6; O2SAT 95
--- NOTE | 2024-08-08 08:00 | PGE_ITS ---
Date of Service Date of service: 08/08/24 Time of Service: 11:40 Assessment and Plan Assessment and plan (1) Acute diverticulitis: Status: Acute Assessment and plan: 48-year-old man with acute diverticulitis. He is hemodynamically stable. His subjective symptoms are drastically improving. His abdominal exam is improving. He is not having any fevers. His white count has normalized. He has not been here 24 hours yet. Overall plan: Will trial clear liquid diet today and see how that goes Hep-Lock IV fluid IV antibiotics If doing well tomorrow morning, he can be discharged home He is up-to-date on colonoscopy. Subjective Subjective Interval history since last seen: No overnight events. He has noticed substantial changes and improvement today. No fevers. He has noticed substantial improvement in his pain. He is passing gas. No nausea no vomiting. He still has occasional cramping pain but much less than yesterday. He asks if he can take his blood pressure medication today since he has skipped it for the last couple of days. Exam Narrative Exam Narrative: Gen: Non-toxic, comfortable and interactive. Definitely appears more comfortab le than yesterday. Neuro: Alert and oriented x3 Psych: Good mood and affect. Good insight and understanding into condition. Chest: Non-labored breathing, no wheezing, no visible shortness of breath. Heart: Regular Abdomen: Soft, no distention, drastically reduced tenderness. Focal left lower quadrant tenderness only to deep palpation. Objective Last Vital Signs Temp 97.9 F 08/08/24 07:45 Pulse 80 08/08/24 07:45 Resp 24 08/08/24 07:45 BP 170/116 H 08/08/24 07:45 Pulse Ox 95 08/08/24 07:45 Laboratory Results - last 24 hr 08/07/24 08/08/24 10:15 05:54 WBC 11.82 H 8.92 RBC 5.12 4.62 Hgb 16.4 15.0 Hct 47.2 43.7 MCV 92 95 MCH 32.0 32.5 MCHC 34.7 34.3 RDW 12.6 12.8 Plt Count 259 244 MPV 9.2 9.5 Immature Gran % 0.5 0.6 Neutrophils % 77.2 72.9 Lymphocytes % 15.0 17.8 Monocytes % 6.5 7.2 Eosinophils % 0.5 1.1 Basophils % 0.3 0.4 Nucleated RBC % 0.0 0.0 Absolute Neutrophils 9.13 H 6.50 Absolute Lymphocytes 1.77 1.59 Absolute Monocytes 0.77 0.64 Absolute Eosinophils 0.06 0.10 Absolute Basophils 0.04 0.04 Sodium 138 141 Potassium 4.0 4.0 Chloride 105 106 Carbon Dioxide 26.0 27.9 Anion Gap 7.0 7.1 BUN 13 16 Creatinine 1.3 1.3 Est GFR (CKD-EPI 2020) 68.19 68.19 Glucose 113 H 97 Calcium 9.0 9.0 Total Bilirubin 0.89 AST 20 ALT 39 Alkaline Phosphatase 83 Total Protein 7.5 Albumin 3.3 L PAWSS Have you Been Recently Intoxicated or Drunk Within the Last 30 days?: No Have you Ever Experienced Previous Episodes of Alcohol Withdrawal?: No Have you ever Experienced Withdrawal Seizures?: No Have you ever Experienced Delirium Tremens(DT)s?: No Have you ever undergone Alcohol Rehabilitation Treatment (i.e, inpt ot outpatient treatment programs)?: No Have you ever Experienced Blackouts?: No Have you ever Combined Alcohol with other Downers within the last 90 days?: No Have you ever Combined Alcohol with any other Substance of Abuse during the last 90 days?: No Result: 0 Time Spent with Patient Time Spent with Patient: <25 minutes Time was spent: preparing to see the patient(eg.review tests), obtaining and/or reviewing separately otained hiistory, ordering medications,tests, procedures, indepentently interpreting results, counseling the patient and care coordination
[2024-08-08] MEDS: Lisinopril 20 MG TAB 40 MG PO (09:37)
--- NOTE | 2024-08-08 09:48 | INITIAL_ITS ---
Date of service: 08/08/24 Time of Service: 09:48 Care Management Initial Assmt Initial Assessment Reason for Hospitalization: sigmoid diverticulitis Functional Status/Living Situation Patient Presentation: Taras was lying in bed when CM met with him. He stated that he is feeling much better today, and per MD, he will likely be ready to discharge tomorrow. He stated that his diet has been advanced to clear liquids. Taras expressed concern about his sleep study, which is scheduled for this evening, and he has been waiting for six months for it. He asked if he would be able to have it done while he is inpatient; CM advised that since he is being treated for diverticulitis, he would not likely be able to have the sleep study tonight, as this is an outpatient study. He stated that he is going to call the clinic and see what his options are. Taras stated that he lives in [place], and that his [facility] address is old; he stated he moved here for work which he intended on it being temporary, and he has not updated his address yet. CM inquired about his insurance, as he is listed as self pay. He stated that he has insurance through work, but it is transitioning to a different company currently, so he isn't sure which should be billed; he stated that he will call his employer to have this straightened out. CM will continue to follow. Town of Residence: [place] Resides with: Other (friend/roommate) Natural Supports: Will reported he has friends/family who are supportive Employment Status: Employed (Works at [employer]) Instrumental Activities of Daily Living (ADLs): Independent Medications Medication Management: No Issues/Barriers identified Advance Directives Advance Directives: Do you have an Advance Directive: N 03/16/24 14:[address] [facility]: N 03/16/24 14:39 Date Asked 06/15/24 06/11/24 13:41 AD Date Reviewed COLST On File at [facility] No 03/16/24 14:39 COLST Date Scanned Code Status Resuscitation Status Full Code Insurance Coverage/Financial Issues Insurance: Will stated that he is insured through his work, although he is unsure who is covering him currently, as there was a recent change. Per Access, his [place] coverage was denied. CM advised Will to contact his employer to determine who his insurance coverage is through. Care Team Visit Care Team Role Provider Type Marily Luu NP Primary Care Provider NURSE PRACTITIONER Lupillo Cui MD Emergency Provider [facility] STAFF PHYSICIAN Billy Teryr MD Admit Provider [facility] STAFF PHYSICIAN Attending Provider Discharge Potential Discharge Needs: PCP F/U Appt Anticipated Barriers to Discharge: None Identified Patient/Family Education Needs: Review discharge instructions, discuss Ask Me Three Transportation: Private vehicle Plan: Will will return home once medically cleared. He will need a return to work letter upon discharge, verifying the dates that he was hospitalized; he stated that if he is discharged tomorrow, he intends to work on Tuesday. He has his vehicle here, and will transport independently. He will follow up with his PCP, surgical services, and his discharge plan of care. CM will continue to follow. PFSH All Active Problems (Updated 08/07/24 @ 13:22 by Lupillo Cui MD) Acute diverticulitis (Acute) Tubular adenoma (Acute) 2019, due 2022 Obesity (Chronic) Osteoarthritis (Chronic) right knee HTN (hypertension) (Acute) Medical History (Updated 08/07/24 @ 13:22 by Lupillo Cui MD) Acute diverticulitis 2018, confirmed by CT at [facility] 12/2021-current episode diagnosed clinically Syncope Alcohol intoxication Lipoma removed 2020 Gout Surgical History (Updated 06/18/24 @ 12:17 by Cary Randall) History of colonoscopy (~05/2024) History of knee surgery R knee Family History Mother High cholesterol Father , 70 Alcohol abuse Diabetes Sister No problems noted. Sister No problems noted. Brother Cancer Brother No problems noted. Brother No problems noted. Brother No problems noted. Social History (Updated 04/06/24 @ 15:05 by Whitney Franks) Smoking/Tobacco Use Status: Current-Occasional Tobacco Type: cigarettes Tobacco: How many years used: 20 Quit status: has quit before Second Hand Exposure: Yes Smoking risk assessment performed?: Yes Alcohol Intake: current Alcohol Intake frequency: a few times a week Alcohol type: beer Drug use: Occasionally Substance use type: marijuana Caregiver/Support person: No Household members: other Details: roomate Housing: house Communication Needs: None Pets and animals: Yes Pets and animals: dog(s) Sexually active: Yes Do you think of yourself as: straight/heterosexual Current gender identity: male How often do you talk on the phone with friends or family?: decline to answer How often do you get together with friends or relatives?: decline to answer Do you belong to any clubs or organized social groups?: no Panel score (0-1 are the most socially isolated patients): 0 Seatbelt use: sometimes Helmet use: Yes Helmet use: always Drive 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 ride w/intox 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 Do you feel safe at home: Yes Additional Social history: lives alone SDOH(Care Management) Screening Will the Patient Participate in the Screening?: Yes Do you worry about having a steady place to live?: no Problems where you live: no known problems In the past 12 months, have you had to go without electric, gas, oil or water in your home?: no Have you or anyone in your house had to go without enough food to eat?: no Has lack of transportation kept you from medical appointments or from doing things needed for daily living?: no Has anyone in your support network made you feel unsafe for any reason?: no
[2024-08-08 11:38] VITALS: BP 150/100; PULSE 72; RESP 24; TEMP 36.7; O2SAT 98
[2024-08-08] MEDS: Enoxaparin 40 MG/0.4 ML SYR SC (13:55)
[2024-08-08 15:20] VITALS: BP 154/80; PULSE 71; RESP 18; TEMP 36.6; O2SAT 97
--- NOTE | 2024-08-08 16:45 | CHAPLAIN ---
Will was resting in bed when I visited. He was pleasant. I explained my role and offered support. He was not interested in further conversation.
[2024-08-08 19:58] VITALS: BP 150/92; PULSE 82; RESP 14; TEMP 37.1; O2SAT 97
[2024-08-09] MEDS: ACETAMINOPHEN 1,000 MG/100 ML BAG 400 MG IVPB ×2 (02:10→09:08)
[2024-08-09] MEDS: PIPERACILLIN/TAZO 3.375 GM in Normal Saline 50 ML IVPB ×3 (02:36→14:00)
[2024-08-09 06:38] LABS: Abs Immature Grans 0.04 10^3/uL (0.0-0.06); Absolute Basophil Count 0.05 10^3/uL (0.0-0.2); Absolute Eosinophil Count 0.15 10^3/uL (0.0-0.7); Absolute Lymphocyte Count 1.89 10^3/uL (1.2-3.4); Absolute Monocyte Count 0.45 10^3/uL (0.1-0.8); Absolute Neutrophil Count 5.66 10^3/uL (1.2-6.7); Basophils % 0.6 %; Eosinophils % 1.8 %; HCT 44.9 % (40.0-50.0); HGB 15.2 g/dL (13.5-17.5); Immature Grans % 0.5 %; Lymphocytes % 22.9 %; MCHC 33.9 % (32.0-36.0); MCV 95 fL (80-95); MPV 9.1 fL (8.0-11.0); Monocytes % 5.5 %; Neutrophils % 68.7 %; Platelet Count 267 10^3/uL (130-400); RBC 4.75 10^6/uL (4.36-5.78); RDW 12.5 % (11.8-14.1); RDW-SD 43.8 fL; WBC 8.24 10^3/uL (4.4-10.8)
[2024-08-09 07:54] VITALS: BP 159/99; PULSE 74; RESP 18; TEMP 36.4; O2SAT 97
[2024-08-09] MEDS: Docusate Sodium 100 MG CAP PO (09:11)
[2024-08-09] MEDS: Lisinopril 20 MG TAB 40 MG PO (09:11)
--- NOTE | 2024-08-09 13:31 | W.PM.PROGNOT ---
Date of Service Date of service: 08/09/24 Time of Service: 13:31 Assessment and Plan Assessment and plan (1) HTN (hypertension): Status: Acute Qualifiers: Hypertension type: essential hypertension Qualified Code(s): I10 - Essential (primary) hypertension (2) Obesity: Status: Chronic (3) Acute diverticulitis: Status: Acute Assessment and plan: -pt will be d/c home -he was given instructions in diet/activity/abx/warning signs -he will f/u in clinic -he has had a recent CE. RX- yogurt and pro biotics to prevent C diff. low residue diet for 3-5 days and than slowly re-introduce high fiber foods. -see d/c summary (4) Tubular adenoma: Status: Acute Subjective Subjective Interval history since last seen: Patient is seen and examined: they are doing well. THey have : no headaches. No CP or SOB. no productive cough. no dysuria. no leg pain or swelling. He is tolerating a regular diet. He has no abdominal pain. He has moved his bowels. It is soft and formed, but not bleeding. L: CTA b/l A; soft and non pain w/ palpation and good BS LE: no edema or pain Objective Last Vital Signs Temp 36.4 C L 08/09/24 07:54 Pulse 74 08/09/24 07:54 Resp 18 08/09/24 07:54 BP 159/99 H 08/09/24 07:54 Pulse Ox 97 08/09/24 07:54 Laboratory Results - last 24 hr 08/09/24 05:54 WBC 8.24 RBC 4.75 Hgb 15.2 Hct 44.9 MCV 95 MCH 32.0 MCHC 33.9 RDW 12.5 Plt Count 267 MPV 9.1 Immature Gran % 0.5 Neutrophils % 68.7 Lymphocytes % 22.9 Monocytes % 5.5 Eosinophils % 1.8 Basophils % 0.6 Nucleated RBC % 0.0 Absolute Neutrophils 5.66 Absolute Lymphocytes 1.89 Absolute Monocytes 0.45 Absolute Eosinophils 0.15 Absolute Basophils 0.05 PAWSS Have you Been Recently Intoxicated or Drunk Within the Last 30 days?: No Have you Ever Experienced Previous Episodes of Alcohol Withdrawal?: No Have you ever Experienced Withdrawal Seizures?: No Have you ever Experienced Delirium Tremens(DT)s?: No Have you ever undergone Alcohol Rehabilitation Treatment (i.e, inpt ot outpatient treatment programs)?: No Have you ever Experienced Blackouts?: No Have you ever Combined Alcohol with other Downers within the last 90 days?: No Have you ever Combined Alcohol with any other Substance of Abuse during the last 90 days?: No Result: 0 Time Spent with Patient Time Spent with Patient: 25-34 minutes Time was spent: preparing to see the patient(eg.review tests), obtaining and/or reviewing separately otained hiistory, ordering medications,tests, procedures, referring, communicating with other health director of critical care, indepentently interpreting results, counseling the patient, care coordination and other
[2024-08-09] MEDS: Enoxaparin 40 MG/0.4 ML SYR SC (14:00)
[2024-08-09] MEDS: Acetaminophen 500 MG TAB 1000 MG PO (14:05)
--- NOTE | 2024-08-09 14:50 | DSE_ITS ---
Date of service: 08/09/24 Time of Service: 14:50 DS: Diagnosis Discharge Diagnosis (1) Acute diverticulitis: Status: Acute Discharge Plan Disposition Patient Disposition: Home Condition: Improving Discharge Details Reason For Visit: Sigmoid diverticulitis Admit Date/Time: 08/07/24 13:25 Admit Provider: Billy Terry Attending Provider: Billy Terry Primary Care Provider: [facility] Hospital Course: see addendum Home Meds and New Rx's Prescriptions: New amoxicillin-pot clavulanate 875-125 mg tablet 1 tab PO BID 4 Days Qty: 8 0RF Rx Instructions: start on 08/10. yogurt daily while on antibiotics while cause diarrhea Bio-K plus 50 billion cell capsule,delayed release(DR/EC) 1 cap PO DAILY Qty: 30 0RF Continued lisinopril 40 mg tablet 40 mg PO DAILY Qty: 90 4RF meloxicam 15 mg tablet 15 mg PO DAILY PRN Discharge Instructions Additional Instructions: -Follow-up with [facility] 07/28 @ 2pm Dr. Kat -soft diet: No beef/pork raw vegetables -7 days. Cooked vegetables are fine. Slowly transition to a high fiiber diet. see below -no straining to move bowel -[id number] Tylenol for pain. You can take 1000 mg every 6 hours as needed for pain. For ibuprofen 600 mg every 6 hours. Make sure to take ibuprofen with food and not on an empty stomach. -Yogurt daily while you are on antibiotics. -A probiotic will be prescribed as well to help prevent diarrhea. - if you do not move your bowels daily take a dose of OTC Miralax -It is ok to shower. No bathe, soaking, swimming or hot tubs -Keep wound clean and dry. Wash incision with soap and water daily. Pat dry, don't rub. -You may find that your appetite is smaller. Eat 3-6 small meals throughout the day. It is important to drink lots of water after surgery, 6-10 glasses a day. 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 -We do want you up walking, at least 5-6 times per day. This is very important to prevent pneumonia and blood clots. You can climb stairs, take them slowly. -heavy lifting or strenuous activity for the next week. -You may find that you are very tired after being in the hospital- this is normal. -please do not smoke for a minimum of 72 hours after surgery. A post-acute diverticulitis diet typically consists of?a low-fiber food plan, including well-cooked meats like poultry and fish, refined grains like white rice and pasta, canned or cooked fruits and vegetables without skin or seeds, dairy products like yogurt and cheese, and eggs. gradually transitioning back to a higher fiber diet as symptoms subside.? Montes points about a post-acute diverticulitis diet: Low fiber focus:During the initial recovery phase, prioritize low-fiber foods to allow your digestive system to rest and heal.? Foods to include: * Protein:?Lean meats (chicken, turkey), fish, eggs? * Grains:?White bread, white rice, pasta? * Vegetables:?Canned or cooked carrots, green beans (without skin)? * Fruits:?Applesauce, canned peaches, bananas? * Dairy:?Milk, yogurt, cheese? * Foods to avoid: * Raw vegetables? * Whole grains? * Seeds and nuts? * Dried fruits? * Legumes (beans, lentils)? * Popcorn? Important considerations: * Gradual transition:?As your symptoms improve, slowly reintroduce higher fiber foods one at a time, monitoring your body's response.? * Hydration:?Drink plenty of water to support digestion.? Patient education: Diverticular disease DIVERTICULAR DISEASE OVERVIEWA diverticulum is a pouch-like structure that can form through points of weakness in the muscular wall of the colon (ie, at points where blood vessels pass through the wall). Diverticulosis affects males and females equally. The risk of diverticular disease increases with age. It occurs throughout the world but is seen more commonly in developed countries. WHAT IS DIVERTICULAR DISEASE? Diverticulosis???Diverticulosis merely describes the presence of diverticula. Diverticulosis is often found during a test done for other reasons, such as fl exible sigmoidoscopy, colonoscopy, or?barium https://www.valuklik.Celsense/contents/komrgd-eyomddz-tjnp-information?search=diverti culitis+treatment+adult&ubarqFyu=9899&source=see_link ?enema. Most people with diverticulosis have no symptoms and will remain symptom free for the rest of their lives. A person with diverticulosis may have diverticulitis, or diverticular bleeding. Diverticulitis???Inflammation of a diverticulum (diverticulitis) occurs when there is thinning and breakdown of the diverticular wall. This may be caused by increased pressure within the colon or by hardened particles of stool, which can become lodged within the diverticulum. The symptoms of diverticulitis depend upon the degree of inflammation present. The most common symptom is pain in the left lower abdomen. Other symptoms can include nausea and vomiting, constipation, diarrhea, and urinary symptoms such as pain or burning when urinating or the frequent need to urinate. Diverticulitis is divided into simple and complicated forms. ?Simple diverticulitis, which accounts for 75 percent of cases, is not associated with complications and typically responds to medical treatment without surgery. ?Complicated diverticulitis occurs in 25 percent of cases and usually requires surgery. Complications associated with diverticulitis can include the following: ?Abscess ? a localized collection of pus ?Fistula ? an abnormal tract between two areas that are not normally connected (eg, bowel and bladder) ?Obstruction ? a blockage of the colon ?Peritonitis ? infection involving the space around the abdominal organ ?Sepsis ? overwhelming body-wide infection that can lead to failure of multiple organs Diverticular bleeding???Diverticular bleeding occurs when a small artery located within a diverticulum is eroded and bleeds into the colon. Diverticular bleeding usually causes painless bleeding from the rectum. In approximately 50 percent of cases, the person will see maroon or bright red blood with bowel movements. Is bleeding with a bowel movement normal?It is not normal to see blood in a bowel movement; this can be a sign of several conditions, most of which are not serious (eg, hemorrhoids) but some of which are serious and require immediate treatment. Anyone who sees blood after a bowel movement should consult with their health care provider to determine if further testing or evaluation is needed. DIVERTICULOSIS AND DIVERTICULITIS DIAGNOSIS Diverticulosis is often found during tests performed for other reasons. ?Barium https://www.valuklik.c om/contents/btcpzp-mesmemv-vzdz-information?search=diverticulitis+treatment+adul t&fqnxsGdk=3786&source=see_link ?enema ? This is an x-ray study that uses barium in an enema to view the outline of the lower intestinal tract. This is an older test and has been largely replaced by computed tomography (CT) scan. ?Flexible sigmoidoscopy ? This is an examination of the inside of the sigmoid colon with a thin, flexible tube that contains a camera. ?Colonoscopy ? This is an examination of the inside of the entire colon. ?CT scan ? A CT scan is used often to diagnose diverticulitis and its complications. If diverticulitis (not just diverticulosis) is suspected, the above three tests should?not?be used because of the risk of perforation. TREATMENT Diverticulosis???People with diverticulosis who do not have symptoms do not require treatment. However, most clinicians recommend increasing fiber in the diet, which can help to bulk the stools and possibly prevent the development of new diverticula, diverticulitis, or diverticular bleeding. Fiber is not proven to prevent these conditions in all patients but may help to control recurrent episodes in some. Increase fiber???Fruits and vegetables are a good source of. The fiber content of packaged foods can be calculated by reading the nutrition Seeds and nuts???Patients with diverticular disease have historically been advised to avoid whole pieces of fiber (such as seeds, corn, and nuts) because of concern that these foods could cause an episode of diverticulitis. However, this belief is completely unproven. We do not suggest that patients with diverticulosis avoid seeds, corn, or nuts. Diverticulitis???Treatment of diverticulitis depends upon how severe your symptoms are. Home treatment???If your disease is mild and you are otherwise healthy, you might be treated at home. This usually involves a liquid diet and pain-relieving medication. However, if you develop one or more of the following signs or symptoms, you should seek immediate medical attention: ?Temperature >100.1?F (38?C) ?Worsening or severe abdominal pain ?Inability to tolerate fluids Hospital treatment???If you have severe disease, you are not in good health, or your symptoms do not get better in two to three days, you might need to be hospitalized for treatment. Initially in the hospital, you will not eat or drink anything; you will receive fluids and antibiotics given through a vein (by IV). If you develop an abscess of the colon, you may require drainage of the abscess (usually performed by placing a drainage tube across the abdominal wall under radiologic guidance) or by surgically opening the affected area. Surgery???If you develop a generalized infection in the abdomen (peritonitis), you will usually require an emergency operation. A two-part operation may be necessary in some cases. ?The first operation involves removal of the diseased colon and creation of a colostomy. A colostomy is an opening between the colon and the skin, where a bag is attached to collect waste from the intestine. The lower end of the colon is temporarily sewed closed to allow it to heal (figure 2 https://www.valuklik.Celsense/contents/image?imageKey=PI%8C65556&topicKey=PI%5N2160&s earch=diverticulitis+treatment+adult&source=see_link ). ?Approximately three to six months later, a second operation is performed to reconnect the two parts of the colon and close the opening in the skin. You are then able to empty your bowels through the rectum. Sometimes patients require up to a year to recover from the first operation, depending on how sick they were. In non-emergency situations, the diseased area of the colon can be removed and the two ends of the colon can be reconnected in one operation, without the need for a colostomy. Surgery versus medical therapy???An operation to remove the diseased area of the colon may be necessary if you do not improve with medical therapy. After an episode of uncomplicated diverticulitis, elective surgery is generally not required as the risk of another attack or requiring emergency surgery is low. However, patients with persistent symptoms attributable to diverticulitis, a history of complicated diverticulitis, or a compromised immune system should be evaluated for possible surgery to prevent another attack. In such patients, another attack has been associated with a higher risk of complications or . Of course, the decision will also depend in part upon your other medical conditions and ability to undergo surgery. In many cases, an elective operation can be performed laparoscopically, using small incisions, rather than the typical vertical (up and down) abdominal incision. Laparoscopic surgery usually allows you to recover more quickly and shortens the hospital stay. After diverticulitis resolves???After an episode of diverticulitis resolves, if you have not had a recent colonoscopy, the entire length of the colon should be evaluated to determine the extent of disease and to rule out the presence of abnormal lesions such as polyps or cancer. Recommended tests include one of the following: colonoscopy,?barium https://www.valuklik.Celsense/contents/sxswny-zitlpof-nlcp-information?search=diverti culitis+treatment+adult&coauyDlq=6358&source=see_link ?enema and sigmoidoscopy, or CT colonography to rule out concomitant disease. If you have had diverticulitis, it's a good idea to eat a diet high in fiber? after?your symptoms have gotten better. Diverticular bleeding???Most cases of diverticular bleeding resolve on their own. However, some people will need further testing or treatment to stop bleeding, which may include a colonoscopy, angiography (a treatment that blocks off the bleeding artery), bleeding scan, or surgery. DIVERTICULAR DISEASE PROGNOSIS Diverticulosis???Over time, diverticulosis may cause no problems or it may cause episodes of bleeding and/or diverticulitis. Approximately 15 to 25 percent of people with diverticulosis will develop diverticulitis, while 5 to 15 percent will develop diverticular bleeding. Diverticulitis???Approximately 85 percent of people with uncomplicated diverticulitis will respond to medical treatment, while approximately 15 percent of patients will need an operation. After successful treatment for a first attack of diverticulitis, one-third of patients will remain asymptomatic, one- third will have episodic cramps without diverticulitis, and one-third will go on to have a second attack of diverticulitis. The prognosis tends to remain similar following a second attack of diverticulitis. Only 10 percent of people remain symptom-free after a second attack. Subsequent attacks tend to be of similar severity, not increasing in severity as previously believed. GRAPHICS Amount of fiber in different foods Food Serving Grams of fiber Fruits Apple (with skin) 1 medium apple 4.4 Banana 1 medium banana 3.1 Oranges 1 orange 3.1 Prunes 1 cup, pitted 12.4 Juices Apple, unsweetened, with added ascorbic acid 1 cup 0.5 Grapefruit, white, canned, sweetened 1 cup 0.2 Grape, unsweetened, with added ascorbic acid 1 cup 0.5 [place] 1 cup 0.7 Vegetables Cooked ?? Green beans 1 cup 4.0 ?? Carrots 1/2 cup sliced 2.3 ?? Peas 1 cup 8.8 ?? Potato (baked, with skin) 1 medium potato 3.8 Raw ?? [place] (with peel) 1 cucumber 1.5 ?? Lettuce 1 cup shredded 0.5 ?? Tomato 1 medium tomato 1.5 ?? Spinach 1 cup 0.7 Legumes ?? Baked beans, canned, no salt added 1 cup 13.9 ?? Kidney beans, canned 1 cup 13.6 ?? Schuster beans, canned 1 cup 11.6 ?? Lentils, boiled 1 cup 15.6 Breads, pastas, flours Bran muffins 1 medium muffin 5.2 Oatmeal, cooked 1 cup 4.0 White bread 1 slice 0.6 Whole-wheat bread 1 slice 1.9 Pasta and rice, cooked ?? Macaroni 1 cup 2.5 ?? Rice, brown 1 cup 3.5 ?? Rice, white 1 cup 0.6 ?? Spaghetti (regular) 1 cup 2.5 Nuts Almonds 1/2 cup 8.7 Peanuts 1/2 cup 7.9 To learn how much fiber and other nutrients are in different foods, visit the [facility] Department of Agriculture (USDA) FoodData Central website. Data from: USDA FoodData Central. Available at:? https://assisted.nal.usda.gov/ ?(Accessed on June 29, 2019). Graphic 83812 Version 6.0 Nutrition label ? Fiber This is an example of a nutrition label. To figure out how much fiber is in a food, look for the line that says Dietary Fiber. It's also important to look at the serving size. This food has 7 grams of fiber in each serving, and each serving is 1 cup. %: percent. Activity:: see above Equipment/Supplies:: No Equipment Needed Diet:: see above Discharge Orders Discharge Orders: Discharge Order (Routine); Ordered 08/09/24 Ordered By: Tracey Kat DS: Summary Time Spent with Patient providing and/or coordinating discharge services: Less than 30 minutes Status at Discharge Functional status at discharge: independent ambulation Overall status at discharge: patient is progressing back to baseline Mental Status: mental status grossly normal Speech and Movement: speech and movement normal Mood: congruent mood Affect: normal affect Quality:SDOH Health Related Social Needs: No Data to Display Exam Psych Mental Status: mental status grossly normal Speech and Movement: speech and movement normal Mood: congruent mood Affect: normal affect DS: Data Vitals/I&O Vitals and I&O: Vital Signs Temperature 36.4 C L 08/09/24 07:54 Temperature Source Temporal Artery Scan 08/09/24 07:54 Pulse 74 08/09/24 07:54 Pulse Rhythm Regular 08/07/24 14:53 Pulse 81 08/07/24 14:30 Respiratory Rate 18 08/09/24 07:54 Respiratory Effort Normal 08/07/24 14:53 Respiratory Depth Normal 08/07/24 14:53 Respiratory Pattern Normal 08/07/24 14:53 Blood Pressure 159/99 H 08/09/24 07:54 Blood Pressure Mean 135 08/07/24 14:16 Blood Pressure Position Sitting 08/07/24 09:49 Pulse Oximetry 97 08/09/24 07:54 Oxygen Delivery Method Room Air 08/09/24 07:54 Oxygen Flow Rate 0 08/09/24 07:54 Pain Level 0 08/09/24 12:00 Comment RN notified 08/09/24 07:54 Intake & Output 08/08/24 08/09/24 08/09/24 23:59 11:59 23:59 Intake Total 300 / 1765 300 / 350 50 / 350 Balance 300 / 1765 300 / 350 50 / 350 Intake: IV 300 / 1165 300 / 350 50 / 350 Other: Comment pt reports voiding occurrence, not visualized by nurse Data Completed and Pending Labs on day of discharge: Labs from last 24 hours 08/09/24 05:54 WBC 8.24 RBC 4.75 Hgb 15.2 Hct 44.9 MCV 95 MCH 32.0 MCHC 33.9 RDW 12.5 Plt Count 267 MPV 9.1 Immature Gran % 0.5 Neutrophils % 68.7 Lymphocytes % 22.9 Monocytes % 5.5 Eosinophils % 1.8 Basophils % 0.6 Nucleated RBC % 0.0 Absolute Neutrophils 5.66 Absolute Lymphocytes 1.89 Absolute Monocytes 0.45 Absolute Eosinophils 0.15 Absolute Basophils 0.05 PFSH All Active Problems (Updated 08/07/24 @ 13:22 by Lupillo Cui MD) Acute diverticulitis (Acute) Tubular adenoma (Acute) 2019, due 2023 Obesity (Chronic) Osteoarthritis (Chronic) right knee HTN (hypertension) (Acute) Medical History (Updated 08/07/24 @ 13:22 by Lupillo Cui MD) Acute diverticulitis 2018, confirmed by CT at [facility] 12/2021-current episode diagnosed clinically Syncope Alcohol intoxication Lipoma removed 2020 Gout Surgical History (Updated 06/18/24 @ 12:17 by Cary Randall) History of colonoscopy (~05/2024) History of knee surgery R knee Family History Mother High cholesterol Father , 70 Alcohol abuse Diabetes Sister No problems noted. Sister No problems noted. Brother Cancer Brother No problems noted. Brother No problems noted. Brother No problems noted. Social History (Updated 04/06/24 @ 15:05 by Whitney Franks) Smoking/Tobacco Use Status: Current-Occasional Tobacco Type: cigarettes Tobacco: How many years used: 20 Quit status: has quit before Second Hand Exposure: Yes Smoking risk assessment performed?: Yes Alcohol Intake: current Alcohol Intake frequency: a few times a week Alcohol type: beer Drug use: Occasionally Substance use type: marijuana Caregiver/Support person: No Household members: other Details: roomate Housing: house Communication Needs: None Pets and animals: Yes Pets and animals: dog(s) Sexually active: Yes Do you think of yourself as: straight/heterosexual Current gender identity: male How often do you talk on the phone with friends or family?: decline to answer How often do you get together with friends or relatives?: decline to answer Do you belong to any clubs or organized social groups?: no Panel score (0-1 are the most socially isolated patients): 0 Seatbelt use: sometimes Helmet use: Yes Helmet use: always Drive intox or ride w/intox 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
--- NOTE | 2024-08-09 17:13 | PDOC.CMDIS ---
Date of service: 08/09/24 Time of Service: 17:13 LACE Index Scoring Tool Questions: Length of Stay (in days): 2 Was the patient admitted via the E.D.?: Yes E.D. Visits: 0 Answers: Total Score: 5 Risk of Readmission: Low Risk Care Management Discharge Plan Reason for Hospitalization: sigmoid diverticulitis Discharge Plan: Will returned home today with no new services. He transported home via private vehicle. He stated that he will talk with HR regarding his insurance, and will contact patient accounts. He will follow up with his PCP and discharge plan of care. He is happy to be going home. Patient/Family Education Needs: Review discharge instructions and limitations, discussion of self care needs including ask me three. SDOH Health Related Social Needs: No Data to Display
== END 2024-08-09 15:41 | disposition home or self-care (01) ==
LOC: ER 13:22 → MS 14:39
PROVIDERS: Admitting Provider Student in an Organized Health Care Education/Training Program; Emergency Provider Emergency Medicine; PCP Nurse Practitioner Family; Visit Provider Student in an Organized Health Care Education/Training Program
DX: K57.32 Diverticulitis of large intestine without perforation or abscess without bleeding (principal); E66.9 Obesity, unspecified; I10 Essential (primary) hypertension; Z68.33 Body mass index [BMI] 33.0-33.9, adult; Z86.0101 Personal history of adenomatous and serrated colon polyps; M17.11 Unilateral primary osteoarthritis, right knee; F17.210 Nicotine dependence, cigarettes, uncomplicated; F12.90 Cannabis use, unspecified, uncomplicated
CPT/HCPCS: 00123; 36415; 80048; 80053; 96361; 96365; 96366; 96367; 96372; 96375; 96376; 99285; J1650; 74177; 85025; G0378; J0131; J1885; J2543; J3010; J3490

== ENCOUNTER 2024-12-05 06:00 | Emergency (ER) | payer OTHER, SELFPAY ==
[2024-12-05] VITALS (19 sets, daily range): BP systolic 154–200; BP diastolic 94–130; PULSE 63–96; RESP 12–32; TEMP 36.6; O2SAT 93–98
--- NOTE | 2024-12-05 06:00 | RT.EKG_ITS ---
APPROVED REPORT Exam: Resting ECG Reason for Exam: Chest Pain Patient Location: E HR:84 bpm ECG Measurements Heart Rate 84 AXIS OH 160 P 38 QRSd 96 QRS 2 QT 347 T 36 QTc 410 Conclusion Sinus rhythm...normal P axis, V-rate 60- [address] segment or T wave abnormalities to suggest occlusive VT
--- NOTE | 2024-12-05 06:29 | ED.GENADUL_ITS ---
Discharge Plan Discharge Details Chief Complaint: Chest Pain Primary Care Provider: Marily Luu ED Provider: Destinee Pedersen Home Meds and New Rx's Prescriptions: No Action lisinopril 40 mg tablet 40 mg PO DAILY Qty: 90 4RF meloxicam 15 mg tablet 15 mg PO DAILY PRN [facility] General Mode of arrival: ambulatory . Date/Time Provider Initiated Documentation: 12/05/24 06:01 . Limitations to Documentation: no limitations . Information obtained by: patient . HPI Narrative: 48yo M with hx HTN not currently on medication presenting for left shoulder pain x 3 days. Pain initially was mild, achey, and somewhat intermittent. It has gotten worse and now is constant this morning and interfering with sleep, radiating up into his left neck. Worse with movement of his left arm. Taking ibuprofen at home which initially seemed to help but not anymore. No shortness of breath or chest pain. No back pain. Does not recall any trauma to the area or unusual exertion. Has also felt generally unwell for the past three days, brain fog, some tinnitus. To me he denies blurry vision. Intermittent mild headache which is not currently present. No fevers, chills, rash, nausea, vomiting, numbness, weakness, vertigo, dark urine, or other concerns. Related Data Home Medications ?Medication ?Instructions ?Recorded ?Confirmed lisinopril 40 mg tablet 40 mg PO DAILY #90 tabs 01/07/22 12/05/24 meloxicam 15 mg tablet 15 mg PO DAILY PRN 06/13/24 12/05/24 Previous Rx's ?Medication ?Instructions ?Recorded lisinopril 40 mg tablet 40 mg PO DAILY #90 tabs 01/07/22 Allergies Allergy/AdvReac Type Severity Reaction Status Date / Time Sulfa (Sulfonamide Allergy Severe fatal Verified 12/05/24 06:11 Antibiotics) sulfamethoxazole (From Allergy Severe fatal Verified 12/05/24 06:11 Bactrim) trimethoprim (From Bactrim) Allergy Severe fatal Verified 12/05/24 06:11 General Stated Complaint: Chest Pain [place]: 3 Review of Systems Narrative: see HPI Exam Narrative Exam Narrative: General: Alert, well appearing, well nourished, in no acute distress. Head: Normocephalic, atraumatic Neck: Trachea midline, ?Neck supple. ENT: ?MMM.? Cardiac: ?RRR, no murmurs appreciated. 2+ symmetric radial pulses. Resp: No respiratory distress. CTAB. Abd: ?Soft, non-distended, nontender Extremities: ?No deformities.? No peripheral edema. Left posterior shoulder, trapezius, and SCM TTP. Neurologic: GCS 15. ? Moves all extremities freely against gravity Course Vital Signs Vital signs: Vital Signs Temperature 36.6 C 12/05/24 06:03 Pulse 96 H 12/05/24 06:03 Respiratory Rate 18 12/05/24 06:03 Blood Pressure 200/130 H 12/05/24 06:03 Pulse Oximetry 98 12/05/24 06:03 Temperature 36.6 C 12/05/24 06:03 Pulse 85 12/05/24 06:20 Pulse 84 12/05/24 06:20 Respiratory Rate 18 12/05/24 06:20 Respiratory Effort Normal 12/05/24 06:08 Respiratory Depth Normal 12/05/24 06:08 Blood Pressure 182/114 H 12/05/24 06:17 Blood Pressure Mean 134 12/05/24 06:17 Pulse Oximetry 97 12/05/24 06:20 Oxygen Delivery Method Room Air 12/05/24 06:03 Oxygen Flow Rate 0 12/05/24 06:03 Pain Level 5 12/05/24 06:03 Medical Decision Making 48yo M with hx HTN not currently on medication presenting for left shoulder pain x 3 days, worse with ranging LUE. Associated feelingn of being generally unwell for the past three days, brain fog, some tinnitus. Hypertensive on arrival 200/130, vital signs otherwise reassuring. Reproducible shoulder/trapezius/SCM tenderness on exam. History and exam most consistent with MSK shoulder pain however ACS must also be considered and so out of abundance of caution will give 325 ASA (may also help with MSK pain) as well as treat with tylenol and flexeril for muscle spasm. Exam reassuring against aortic dissection; would not get CT imaging. Less likely hypertensive emergency; repeat SBP 182/114 without intervention, reproducible tenderness argues against ichemic shoulder pain. Would treat with IV antihypertensives at this time however will evaluate further with labs and UA for possible indication of end-organ damage. EKG on arrival NSR, appropriate intervals, no ST segment or T wave abnormalities to suggest occlusive OK. Repeat BP now 154/94, reassuring. Labs reviewed as below, CBC reassuring with mild leukocytosis (nonspecific) and no anemia, CMP with no actionable abnoramlities, Mg normal, BNP not suggestive of heart failure, initial troponin normal. Will be signed out to oncoming physician, plan to followup CXR, repeat troponin, and reassess for symptom improvement. Lab Data Lab results reviewed: Yes I reviewed the patient's lab results. Labs: Laboratory Tests Range/Units 12/05/24 06:14 WBC (4.4-10.8) 10^3/uL 12.02 H RBC (4.36-5.78) 10^6/uL 5.05 Hgb (13.5-17.5) g/dL 15.5 Hct (40.0-50.0) % 45.9 MCV (80-95) fL 91 MCH (27.0-33.0) pg 30.7 MCHC (32.0-36.0) % 33.8 RDW (11.8-14.1) % 12.6 Plt Count (130-400) 10^3/uL 339 MPV (8.0-11.0) fL 8.7 Immature Gran % % 0.6 Neutrophils % % 66.8 Lymphocytes % % 23.1 Monocytes % % 7.4 Eosinophils % % 1.7 Basophils % % 0.4 Nucleated RBC % (0.0-0.3) % 0.0 Absolute Neutrophils (1.2-6.7) 10^3/uL 8.03 H Absolute Lymphocytes (1.2-3.4) 10^3/uL 2.78 Absolute Monocytes (0.1-0.8) 10^3/uL 0.89 H Absolute Eosinophils (0.0-0.7) 10^3/uL 0.20 Absolute Basophils (0.0-0.2) 10^3/uL 0.05 Quality:SDOH Health Related Social Needs: No Data to Display PFSH All Active Problems Acute diverticulitis (Acute) Tubular adenoma (Acute) 2019, due 2022 Obesity (Chronic) Osteoarthritis (Chronic) right knee HTN (hypertension) (Acute) Medical History Acute diverticulitis 2018, confirmed by CT at [facility] 12/2021-current episode diagnosed clinically Syncope Alcohol intoxication Lipoma removed 2020 Gout Surgical History History of colonoscopy (~05/2024) History of knee surgery R knee Family History Mother High cholesterol Father , 70 Alcohol abuse Diabetes Sister No problems noted. Sister No problems noted. Brother Cancer Brother No problems noted. Brother No problems noted. Brother No problems noted. Social History Smoking/Tobacco Use Status: Current-Occasional Tobacco Type: cigarettes Tobacco: How many years used: 20 Quit status: has quit before Second Hand Exposure: Yes Smoking risk assessment performed?: Yes Alcohol Intake: current Alcohol Intake frequency: a few times a week Alcohol type: beer Drug use: Occasionally Substance use type: marijuana Caregiver/Support person: No Household members: other Details: roomate Housing: house Communication Needs: None Pets and animals: Yes Pets and animals: dog(s) Sexually active: Yes Do you think of yourself as: straight/heterosexual Current gender identity: male How often do you talk on the phone with friends or family?: decline to answer How often do you get together with friends or relatives?: decline to answer Do you belong to any clubs or organized social groups?: no Panel score (0-1 are the most socially isolated patients): 0 Seatbelt use: sometimes Helmet use: Yes Helmet use: always 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 Do you feel safe at home: Yes Additional Social history: lives alone PAWSS Have you Been Recently Intoxicated or Drunk Within the Last 30 days?: No Have you Ever Experienced Previous Episodes of Alcohol Withdrawal?: No Have you ever Experienced Withdrawal Seizures?: No Have you ever Experienced Delirium Tremens(DT)s?: No Have you ever undergone Alcohol Rehabilitation Treatment (i.e, inpt ot outpatient treatment programs)?: No Have you ever Experienced Blackouts?: No Have you ever Combined Alcohol with other Downers within the last 90 days?: No Have you ever Combined Alcohol with any other Substance of Abuse during the last 90 days?: No Positive Blood Alcohol level on Presentation? [PCS.BAL]: No Evidence of Increased Autonomic Activity (i.e. HR>120, tremor, sweating, agitation, nausea)?: No Result: 0
[2024-12-05] MEDS: Cyclobenzaprine 10 MG TAB PO (06:31)
[2024-12-05] MEDS: Acetaminophen 500 MG TAB 1000 MG PO (06:32)
[2024-12-05] MEDS: Aspirin 81 MG CHEW 324 MG CH (06:33)
[2024-12-05 06:36] LABS: Abs Immature Grans 0.07 10^3/uL (0.0-0.06); Absolute Basophil Count 0.05 10^3/uL (0.0-0.2); Absolute Lymphocyte Count 2.78 10^3/uL (1.2-3.4); Absolute Monocyte Count 0.89 10^3/uL (0.1-0.8); Basophils % 0.4 %; Eosinophils % 1.7 %; HCT 45.9 % (40.0-50.0); HGB 15.5 g/dL (13.5-17.5); Immature Grans % 0.6 %; Lymphocytes % 23.1 %; MCH 30.7 pg (27.0-33.0); MCHC 33.8 % (32.0-36.0); MCV 91 fL (80-95); MPV 8.7 fL (8.0-11.0); Monocytes % 7.4 %; Neutrophils % 66.8 %; Platelet Count 339 10^3/uL (130-400); RBC 5.05 10^6/uL (4.36-5.78); RDW 12.6 % (11.8-14.1); RDW-SD 41.1 fL; WBC 12.02 10^3/uL (4.4-10.8)
[2024-12-05 06:37] LABS: Absolute Neutrophil Count 8.03 10^3/uL (1.2-6.7)
[2024-12-05 06:58] LABS: ALT 57 U/L (16-63); AST 30 U/L (15-37); Albumin 3.4 g/dL (3.4-5.0); Alkaline Phosphatase 94 U/L (46-116); Anion Gap 14.3 mmol/L (3-11); BUN 8 mg/dL (7-18); Bilirubin, Total 0.6 mg/dL (0.2-1.0); CO2 21.7 mmol/L (21.0-32.0); CREATININE 0.9 mg/dL (0.70-1.30); Chloride 102 mmol/L (98-107); ETHANOL BLOOD 85.8 mg/dL (<10); Estimated GFR 106.01 (mL/min/1.73m2); Glucose 116 mg/dL (74-106); Magnesium 2.1 mg/dL; Sodium 138 mmol/L (136-145); Total Protein 7.8 g/dL (6.4-8.2); Troponin I 6 ng/L (<or=76)
--- NOTE | 2024-12-05 07:20 | DI.RAD_ITS ---
Exam(s) XR CHEST 2V PA LATERAL EXAM: XR CHEST 2V PA LATERAL CLINICAL HISTORY: chest pain TECHNIQUE: 2D digital imaging was performed. Two views. COMPARISON: No exams were available for comparison FINDINGS: HEART: Normal size. Aorta: Not dilated. PULMONARY VASCULATURE: Normal. MEDIASTINUM: Unremarkable. LUNGS: Clear. PLEURAL SPACE: No pleural effusion or pneumothorax. BONE:Unremarkable for age. SOFT TISSUES: Unremarkable. IMPRESSION: No acute abnormality. DATA REPOSITORY: RADIATION DOSE DELIVERED:
[2024-12-05 07:21] LABS: NT-proBNP 32 pg/mL (<300)
--- NOTE | 2024-12-05 07:26 | W.EDPROG ---
Date of service: 12/05/24 Time of Service: 07:28 Medical Decision Making This is a 48-year-old male patient with a past medical history significant for hypertension, not currently taking his medications, who presented for evaluation of left shoulder pain and high blood pressure. At the time that I took over his care, he has had laboratory studies which include a negative initial troponin, and no evidence of kidney dysfunction, as well as a nonischemic EKG. His workup is pending delta troponin, chest x-ray. His blood pressure and symptoms of shoulder pain have improved significantly with Tylenol and Flexeril, and were reproducible on the last provider's examination most concerning for musculoskeletal pain. I reviewed the patient's chest x-ray and the radiology report, which references bilateral streaky basilar atelectasis. In the absence of cough, fever, and other respiratory or infectious symptoms I am less concerned for pneumonia. His urinalysis shows no sign of proteinuria or urinary tract infection. Delta troponin was negative without interval change to suggest cardiac ischemia. On reevaluation the patient reports that his pain has improved, and he has a plan to follow-up with his primary care provider to discuss reinitiation of his antihypertensive regimen. At this time, the patient has had a full medical evaluation and is safe for discharge to home. They are hemodynamically stable, ambulatory, and tolerating PO. They are understanding of the follow-up plan and return precautions. They left our facility without incident. Pauline Rios MD Medical Records Medical records reviewed: Yes I reviewed the patient's medical records. Lab Data Lab results reviewed: Yes I reviewed the patient's lab results. Quality:SDOH Health Related Social Needs: No Data to Display Discharge Plan Disposition Patient Disposition: Home Condition: Stable Discharge Details Clinical Impression: Acute pain of left shoulder, HTN (hypertension) Primary Care Provider: Marily Luu ED Provider: Pauline Rios Home Meds and New Rx's Prescriptions: No Action lisinopril 40 mg tablet 40 mg PO DAILY Qty: 90 4RF meloxicam 15 mg tablet 15 mg PO DAILY PRN Discharge Instructions Instructions: Shoulder Pain (DC) Additional Instructions: You were seen in the emergency department today for evaluation of high blood pressure and shoulder pain. In our department you do full physical examination performed, received medications for management of your pain, which is likely due to the muscles in your shoulder. You had a workup that was negative for damage to your heart or heart attack, damage to your kidneys or infection in your urine. As we discussed, it is safe for you to go home but you do need to schedule an appointment with your primary care provider to discuss reinitiation of your antihypertensive medications. Reasons to come back to the emergency department include sudden or severe change or worsening of your pain, development of chest pain, headache, vision changes, or any other symptoms that cause you concern. Please follow-up with your primary care provider in the next few days to discuss this visit and any symptoms that change, worsen, or persist. Thank you for allowing us to be part of your care. Stand Alone Forms: Work Release
[2024-12-05 07:31] LABS: Bilirubin Negative (Negative); Blood Negative (Negative); Clarity Clear (Clear); Glucose Negative (Negative); Ketones Negative (Negative); Leukocyte Esterase Negative (Negative); Nitrite Negative (Negative); Specific Gravity <= 1.005 (1.005-1.025); Urobilinogen 0.2 mg/dL (Up to 0.2); pH 5.5 (5-8)
--- NOTE | 2024-12-05 07:36 | DI.VRAD_ITS ---
PROCEDURE INFORMATION: Exam: XR Chest Exam date and time: 12/05/2024 7:17 AM Age: 48 years old Clinical indication: On breathing; Chest pain TECHNIQUE: Imaging protocol: Radiologic exam of the chest. Views: 2 views. COMPARISON: No relevant prior studies are available for comparison. FINDINGS: Lungs: Streaky bibasilar opacities, likely atelectasis. Pleural spaces: No large pleural effusion seen. Heart/Mediastinum: No cardiomegaly. Bones/joints: No acute abnormality. IMPRESSION: Streaky bibasilar opacities, likely atelectasis. Pneumonia not excluded. Follow-up if clinically warranted. Dictated and Authenticated by: Bridget Natarajan MD. Orderin Nuvia Felipe MD
[2024-12-05 07:41] LABS: Troponin I 8 ng/L (<or=76)
== END 2024-12-05 08:03 | disposition home or self-care (01) ==
PROVIDERS: Student in an Organized Health Care Education/Training Program; Emergency Provider Emergency Medicine; PCP Nurse Practitioner Family
DX: M25.512 Pain in left shoulder (principal); I10 Essential (primary) hypertension; F17.210 Nicotine dependence, cigarettes, uncomplicated
CPT/HCPCS: 00123; 36415; 80053; 93005; 99283; 71046; 80320; 81003; 83735; 83880; 84484; 85025; 93010

== ENCOUNTER 2024-12-11 08:36 | Emergency (ER) | payer OTHER, SELFPAY ==
[2024-12-11] VITALS (22 sets, daily range): BP systolic 159–184; BP diastolic 94–124; PULSE 61–98; RESP 12–30; TEMP 37; O2SAT 94–99
--- NOTE | 2024-12-11 08:45 | RT.EKG_ITS ---
APPROVED REPORT Exam: Resting ECG Reason for Exam: HTN Patient Location: E HR:83 bpm ECG Measurements Heart Rate 83 AXIS MO 156 P 38 QRSd 98 QRS 17 QT 364 T 46 QTc 428 Conclusion Sinus rhythm, rate 83 No interval abnormalities No STEMI No significant changes from priors
--- NOTE | 2024-12-11 09:00 | DI.CT_ITS ---
Exam(s) CT BRAIN NECK CTA EXAM: CT BRAIN NECK CTA CLINICAL HISTORY: GOMEZ, HTN, vision blurry and excessive yawning. TECHNIQUE: Imaging Protocol: Axial CT angiography was performed with multi-slice acquisition and mu lti-planar and/or 3D reconstructions. CONTRAST MATERIAL: Intravenous: Omnipaque 350 Contrast volume:structured data in ml COMPARISON: CT CT HEAD CERVICAL SPINE WO from 08/03/2021 FINDINGS: CTA Neck W: Aortic arch anatomy: The aortic arch anatomy is conventional and there is no significant stenosis at the origin of the great vessels off of the aortic arch. No intimal flap evident. Anterior circulation: Both common carotid arteries ascend with normal luminal diameters. At the level the carotid bulbs and proximal internal carotid arteries there is minimal plaque without hemodynamically significant stenosis evident. Posterior circulation: Both vertebral arteries originate in conventional fashion off of the subclavian arteries and there is no obvious stenosis at the origin of the vertebral arteries. Both vertebral arteries exhibit normal luminal diameters within the foramen transversarium. Both vertebral arteries contribute to the formation of the basilar artery at the skull base. CTA Brain W: Anterior circulation: Both internal carotid arteries are patent in the skull base-carotid canals as well as within the cave rnous sinuses. The supraclinoid aspects of the ICAs are patent. Both A1 segments are patent as are the anterior cer ebral arteries and there is no evidence of aneurysm at the level of the anterior communicating artery . Both middle cerebral arteries are patent with no evidence of significant stenosis nor intraluminal th rombus. There also no aneurysms of these vessels. Posterior circulation: The basilar artery ascends in the midline. Distally it gives off patent bilateral superior cerebella r arteries. Above this level the basilar artery terminates as patent bilateral posterior cerebral arteries. There is no evidence of aneurysm at the tip of the basilar artery nor elsewhere in the [id number] is. CT BRAIN: There is no evidence of intracranial hemorrhage, mass effect, or shift of midline structures. There are no extra-axial fluid collections. Ventricles are not enlarged or shifted. There are no ring enh ancing lesions in the brain and no abnormal meningeal enhancement. there is a small dural-based calcification in the posterior falx measuring 5 x 6 mm which may represe nt a small meningioma. IMPRESSION: 1. Patent carotid arteries in the neck. No hemodynamically significant stenosis. 2. Patent vertebral arteries. No stenosis. No dissection. 3. Patent intracranial arteries. No stenosis nor occlusion. No aneurysms. 4. There is a small 5 x 6 mm posteriorly located exophytic falcine calcification which may be a small meningioma. Called by myself to ER physician 12/11/2024 at 10:55 am RADIATION DOSE DELIVERED: 2,352.85mGy.cm Total DLP DATA REPOSITORY: All CT scans at this facility are submitted to the National Radiology Data Registry (NRDR) Dose Index Registry (DIR) with the [employer] (ACR). RADIATION OPTIMIZATION: All CT scans at this facility use at least one of these dose optimization te chniques: automated exposure control; mA and/or kV adjustment per patient size (includes targeted exa ms where dose is matched to clinical indication); or iterative reconstruction.
--- NOTE | 2024-12-11 09:09 | W.ED.GENAD ---
Discharge Plan Disposition Patient Disposition: Home Condition: Stable Discharge Details Clinical Impression: HTN (hypertension), Blurred vision, Excessive daytime sleepiness Primary Care Provider: Marily Luu ED Provider: Pauline Rios Home Meds and New Rx's Prescriptions: No Action amlodipine 5 mg tablet 5 mg PO DAILY Qty: 30 0RF meloxicam 15 mg tablet 15 mg PO DAILY PRN (Reason: pain, moderate) Qty: 90 1RF lisinopril 40 mg tablet 20 mg PO DAILY Discharge Instructions Additional Instructions: You were seen in the emergency department today for evaluation of excessive yawning and daytime sleepiness, headache and hyper pretension, as well as vision blurriness for the last week or so. In our department you had a full physical examination performed, had a normal EKG and a reassuring laboratory workup. You had a CTA of your brain and neck that did not show any abnormalities such as stroke, vascular abnormalities or other signs to explain your symptoms. You need to go to [facility] eye clinic at [address] [place] [address] , we have scheduled an appointment for you at 1120 so please go straight there. Additionally, I am concerned that your excessive daytime sleepiness and yawning is due to untreated sleep apnea. You need to contact your primary care provider or talk to them at your scheduled appointment on to discuss a sleep study. Additionally at that time they may wish to continue titrating your high blood pressure medications to the effective doses. You should continue to start your amlodipine today as recommended initially. Please follow-up with your primary care provider in the next few days to discuss this visit and any symptoms that change, worsen, or persist. Thank you for allowing us to be part of your care. Stand Alone Forms: Work Release HPI General Mode of arrival: ambulatory. Date/Time Provider Initiated Documentation: 12/11/24 08:37. Limitations to Documentation: no limitations. Information obtained by: patient and old records reviewed. HPI Narrative: HPI: This is a 48-year-old male patient with a past medical history significant for hypertension, presenting for evaluation of headache, vision changes, and excessive yawning. The patient reports that he was off his blood pressure medications for some time due to insurance issues, was seen here at the emergency department 1 week ago and was reinitiated on his lisinopril. He was then seen at his primary care providers and a second agent was added with a plan to meet on of this week uptitrate his lisinopril to 40 mg. The patient was contacted by his primary care provider today to return to the emergency department for reevaluation and specifically to obtain imaging of the head to evaluate for abnormalities. The patient reports that over the last week or so he has noted worsening blurriness of his vision, typically he will need to use readers on occasion but today he has been having difficulty with blurriness and reading at distances, states that he was unable to see the numbers on his dashboard while driving today. He states that he feels like he has been sleeping, but wakes up and has excessive daytime sleepiness and excessive yawning, which has been present for about a week. He does have a history of sleep apnea but has not been able to undergo sleep studies or get the CPAP. The patient has a mild headache, does not have a history of migraines, has not had trauma and does not take blood thinners. Denies chest pain, fevers, or other associated symptoms. Exam: Gen: awake and alert, in no apparent distress. Appears well nourished. HEENT: PERRL, EOMs full and without nystagmus. External ears and nose normal, mucous membranes moist. Neck: Supple, full range of motion, no observable masses Lungs: No increased work of breathing, lung sounds clear and equal bilaterally without wheezes, rhonchi, or rales. CV: Heart with regular rate and rhythm, no murmurs auscultated. Strong and symmetrical radial pulses. Abdomen: Soft, nondistended, non-tended to palpation. No rigidity, rebound tenderness, or guarding. MSK: No joint swelling, no redness. Full ROM without limitation, no external traumatic findings. Skin: No rashes or lesions to visualized skin. Normal color, warm, and dry. Neuro: Cranial nerves II-XII intact and symmetrical bilaterally. 5/5 strength in all muscle groups x4 extremities. No sensory deficits. Ambulates with steady gait. No pronator drift, no abnormalities with [id number] or tmxw-gf-[id number] testing Psych: Appropriate for situation. MDM: This is a 48-year-old male patient presenting for evaluation of headache, excessive sleepiness and yawning, and uncontrolled hypertension. My differential includes but is not limited to hypertension, certainly considered hypertensive urgency and emergency, considered intracranial abnormalities including hemorrhage, stroke, mass effect. I did consider sleep apnea as the source of his symptoms, no history of migraine though other primary headache disorder such as tension headache were considered. The patient had laboratory studies done recently that did not show any proteinuria or evidence of renal dysfunction, he does not have chest pain to significantly increase my concern for ACS. 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 We obtained an EKG which I reviewed, which shows normal sinus rhythm without evidence of ischemia, interval abnormality, or ectopy. We will obtain laboratory studies to include CBC, CMP, magnesium, troponin, INR, and will obtain visual acuity as well as a CTA of the brain and neck. ED Course: I independently interpreted the laboratory studies, which show no significant leukocytosis, anemia, or thrombocytopenia. The chemistry panel is without evidence of electrolyte abnormality, kidney dysfunction, or liver injury, other than a very mild elevation in bilirubin to 1.4, which has been noted on prior laboratory studies. Troponin was negative x 2 checks and without delta change, and in the absence of ischemia on the EKG I feel reassured against cardiac damage in setting of his hypertension. I reviewed the patient's CTA and discussed the findings with the radiologist. He does not have any evidence of infarct, large vessel occlusion or stenosis, has a very small calcification which may represent meningioma but is unlikely to be the cause of the patient's bilateral visual symptoms. I am most concerned for untreated sleep apnea as the cause of his excessive daytime sleepiness, and additionally this could be contributing to his hypertension. Finally, I am concerned about the effect of his hypertension on his retina, and feel that he would benefit from expedited ophthalmologic workup now that neurologic emergencies have been evaluated and ruled out. [facility] and [facility] were able to fit this patient in for an appointment at 1120 this morning, the patient understands and will be discharged from the emergency department and drive himself there right away. He has an appointment on with his primary care provider at which time his lisinopril be uptitrated to 40 mg if he is still hypertensive after initiating amlodipine (which was scheduled for today and the patient does have access to this medication already). At this time, the patient has had a full medical evaluation and is safe for discharge to home. They are hemodynamically stable, ambulatory, and tolerating PO. They are understanding of the follow-up plan and return precautions. They left our facility without incident. Pauline Rios MD Related Data Home Medications ?Medication ?Instructions ?Recorded ?Confirmed meloxicam 15 mg tablet 15 mg PO DAILY PRN pain, moderate 12/06/24 12/11/24 #90 tabs amlodipine 5 mg tablet 5 mg PO DAILY #30 tabs 12/10/24 12/11/24 lisinopril 40 mg tablet 20 mg PO DAILY 12/11/24 12/11/24 Previous Rx's ?Medication ?Instructions ?Recorded meloxicam 15 mg tablet 15 mg PO DAILY PRN pain, moderate 12/06/24 #90 tabs amlodipine 5 mg tablet 5 mg PO DAILY #30 tabs 12/10/24 Allergies Allergy/AdvReac Type Severity Reaction Status Date / Time Sulfa (Sulfonamide Allergy Severe fatal Verified 12/11/24 08:42 Antibiotics) sulfamethoxazole (From Allergy Severe fatal Verified 12/11/24 08:42 Bactrim) trimethoprim (From Bactrim) Allergy Severe fatal Verified 12/11/24 08:42 General Stated Complaint: [facility] [place]: 3 Course Vital Signs Vital signs: Vital Signs Temperature 37.0 C 12/11/24 08:39 Pulse 90 12/11/24 08:39 Respiratory Rate 17 12/11/24 08:39 Blood Pressure 174/115 H 12/11/24 08:39 Pulse Oximetry 98 12/11/24 08:39 Temperature 37.0 C 12/11/24 08:43 Temperature Source Oral 12/11/24 08:43 Pulse 90 12/11/24 08:43 Respiratory Rate 18 12/11/24 08:48 Respiratory Effort Normal, Non-Labored 12/11/24 08:48 Respiratory Pattern Normal 12/11/24 08:48 Blood Pressure 174/115 H 12/11/24 08:43 Blood Pressure Position Sitting 12/11/24 08:43 Pulse Oximetry 98 12/11/24 08:43 Oxygen Delivery Method Room Air 12/11/24 08:43 Oxygen Flow Rate 0 12/11/24 08:43 Pain Level 3 12/11/24 08:43 Medical Decision Making Quality:SDOH Health Related Social Needs: No Data to Display PFSH All Active Problems (Updated 12/11/24 @ 11:04 by Pauline Rios MD) Excessive daytime sleepiness (Acute) Blurred vision (Acute) Acute pain of left shoulder (Acute) Acute diverticulitis (Acute) Tubular adenoma (Acute) 2019, due 2022 Obesity (Chronic) Osteoarthritis (Chronic) right knee HTN (hypertension) (Acute) Medical History Acute diverticulitis 2018, confirmed by CT at [facility] 12/2021-current episode diagnosed clinically Syncope Alcohol intoxication Lipoma removed 2020 Gout Surgical History History of colonoscopy (~05/2024) History of knee surgery R knee Family History Mother High cholesterol Father , 70 Alcohol abuse Diabetes Sister No problems noted. Sister No problems noted. Brother Cancer Brother No problems noted. Brother No problems noted. Brother No problems noted. Social History Smoking/Tobacco Use Status: Current-Occasional Tobacco Type: cigarettes Tobacco: How many years used: 20 Quit status: has quit before Second Hand Exposure: Yes Smoking risk assessment performed?: Yes Alcohol Intake: current Alcohol Intake frequency: a few times a week Alcohol type: beer Drug use: Daily Substance use type: marijuana Caregiver/Support person: No Household members: other Details: roomate Housing: house Communication Needs: None Pets and animals: Yes Pets and animals: dog(s) Sexually active: Yes Do you think of yourself as: straight/heterosexual Current gender identity: male How often do you talk on the phone with friends or family?: decline to answer How often do you get together with friends or relatives?: decline to answer Do you belong to any clubs or organized social groups?: no Panel score (0-1 are the most socially isolated patients): 0 Seatbelt use: sometimes Helmet use: Yes Helmet use: always Drive intox or ride w/intox cdl truck driver: No Do you feel safe at home: Yes Additional Social history: lives alone PAWSS Have you Been Recently Intoxicated or Drunk Within the Last 30 days?: No Have you Ever Experienced Previous Episodes of Alcohol Withdrawal?: No Have you ever Experienced Withdrawal Seizures?: No Have you ever Experienced Delirium Tremens(DT)s?: No Have you ever undergone Alcohol Rehabilitation Treatment (i.e, inpt ot outpatient treatment programs)?: No Have you ever Experienced Blackouts?: No Have you ever Combined Alcohol with other Downers within the last 90 days?: No Have you ever Combined Alcohol with any other Substance of Abuse during the last 90 days?: No Positive Blood Alcohol level on Presentation? [PCS.BAL]: No Evidence of Increased Autonomic Activity (i.e. HR>120, tremor, sweating, agitation, nausea)?: No Result: 0
[2024-12-11] MEDS: Normal Saline - Diluent 50 ML VIAL IJ (09:22)
[2024-12-11] MEDS: Omnipaque 350 MG/ML 100 ML BTL 70 ML IJ (09:23)
[2024-12-11 09:25] LABS: Abs Immature Grans 0.03 10^3/uL (0.0-0.06); Absolute Basophil Count 0.05 10^3/uL (0.0-0.2); Absolute Lymphocyte Count 1.68 10^3/uL (1.2-3.4); Absolute Neutrophil Count 6.02 10^3/uL (1.2-6.7); Basophils % 0.6 %; Eosinophils % 1.2 %; HCT 45.5 % (40.0-50.0); HGB 15.6 g/dL (13.5-17.5); Immature Grans % 0.3 %; Lymphocytes % 19.6 %; MCH 30.8 pg (27.0-33.0); MCHC 34.3 % (32.0-36.0); MCV 90 fL (80-95); Monocytes % 8.2 %; Neutrophils % 70.1 %; Platelet Count 364 10^3/uL (130-400); RBC 5.07 10^6/uL (4.36-5.78); RDW 13.3 % (11.8-14.1); RDW-SD 43.8 fL; WBC 8.58 10^3/uL (4.4-10.8)
[2024-12-11 09:30] LABS: INR 1.1 (0.9-1.1)
[2024-12-11 09:37] LABS: ALT 44 U/L (16-63); AST 29 U/L (15-37); Albumin 3.7 g/dL (3.4-5.0); Alkaline Phosphatase 75 U/L (46-116); Anion Gap 7.4 mmol/L (3-11); BUN 10 mg/dL (7-18); Bilirubin, Total 1.4 mg/dL (0.2-1.0); CO2 27.6 mmol/L (21.0-32.0); CREATININE 1.2 mg/dL (0.70-1.30); Calcium 9.6 mg/dL (8.5-10.1); Chloride 105 mmol/L (98-107); Estimated GFR 75.06 (mL/min/1.73m2); Glucose 104 mg/dL (74-106); Magnesium 1.9 mg/dL; Sodium 140 mmol/L (136-145); Total Protein 8.1 g/dL (6.4-8.2); Troponin I 7 ng/L (<or=76)
[2024-12-11 10:34] LABS: Troponin I 7 ng/L (<or=76)
== END 2024-12-11 11:10 | disposition home or self-care (01) ==
PROVIDERS: Emergency Provider Emergency Medicine; PCP Nurse Practitioner Family
DX: H53.8 Other visual disturbances (principal); I10 Essential (primary) hypertension; R40.0 Somnolence
CPT/HCPCS: 36415; 70496; 70498; 80053; 93005; 99285; 83735; 84484; 85025; 85610; 93010; 99284; J3490

== ENCOUNTER 2025-03-25 15:12 | Outpatient (CLI) | payer OTHER, SELFPAY ==
--- NOTE | 2025-03-25 15:00 | RT.EKG_ITS ---
APPROVED REPORT Exam: Resting ECG Reason for Exam: Viral illness Patient Location: O HR:95 bpm ECG Measurements Heart Rate 95 AXIS CO 157 P 47 QRSd 103 QRS 17 QT 333 T 43 QTc 419 Conclusion Sinus rhythm...normal P axis, V-rate 50- 99 ST elev, probable normal early repol pattern...ST elevation, age<55 Baseline wander in lead(s) V2 Normal Electrocardiogram
== END 2025-03-25 15:13 | disposition home or self-care (01) ==
LOC: DI.CM 15:12
PROVIDERS: PCP Nurse Practitioner Family; Visit Provider Nurse Practitioner Family
DX: R07.89 Other chest pain (principal)
CPT/HCPCS: 93010

== ENCOUNTER 2025-03-25 18:40 | Outpatient (REF) | payer OTHER, SELFPAY ==
[2025-03-25 20:58] LABS: Abs Immature Grans 0.03 10^3/uL (0.0-0.06); HCT 48.1 % (40.0-50.0); HGB 16.6 g/dL (13.5-17.5); Immature Grans % 0.3 %; MCH 32.2 pg (27.0-33.0); MCHC 34.5 % (32.0-36.0); MCV 93 fL (80-95); MPV 9.7 fL (8.0-11.0); Platelet Count 310 10^3/uL (130-400); RBC 5.16 10^6/uL (4.36-5.78); RDW 12.9 % (11.8-14.1); RDW-SD 44.5 fL; WBC 10.52 10^3/uL (4.4-10.8)
[2025-03-25 21:17] LABS: ALT 34 U/L (16-63); AST 21 U/L (15-37); Albumin 3.8 g/dL (3.4-5.0); Alkaline Phosphatase 74 U/L (46-116); Anion Gap 13.9 mmol/L (3-11); BUN 12 mg/dL (7-18); Bilirubin, Total 1.4 mg/dL (0.2-1.0); CO2 23.1 mmol/L (21.0-32.0); Calcium 9.8 mg/dL (8.5-10.1); Chloride 101 mmol/L (98-107); Estimated GFR 82.81 (mL/min/1.73m2); Glucose 94 mg/dL (74-106); Potassium 3.8 mmol/L (3.5-5.1); Sodium 138 mmol/L (136-145); Total Protein 7.6 g/dL (6.4-8.2)
[2025-03-27 11:26] LABS: Lyme Ab w Rflx to Lyme Confirm Negative (Negative)
[2025-03-28 22:01] LABS: B. miyamotoi PCR Negative (Negative); Babesia divergens/MO-1 Negative (Negative); Ehrlichia muris eauclairensis Negative (Negative)
== END 2025-03-25 18:41 | disposition home or self-care (01) ==
LOC: LBN 18:40
PROVIDERS: PCP Nurse Practitioner Family; Visit Provider Nurse Practitioner Family
DX: B34.9 Viral infection, unspecified (principal)
CPT/HCPCS: 80053; 87798; 85025; 86618

== ENCOUNTER 2025-07-19 17:19 | Emergency (ER) | payer OTHER, SELFPAY ==
[2025-07-19 17:23] VITALS: BP 179/116; PULSE 96; RESP 18; TEMP 36.6; O2SAT 96
--- NOTE | 2025-07-19 17:30 | DI.CT_ITS ---
Exam(s) CT ABDOMEN PELVIS WO EXAM: CT ABDOMEN PELVIS WO CLINICAL HISTORY: concern for left sided renal colic. TECHNIQUE: Imaging Protocol: Axial computed tomography images with coronal and sagittal reformatted images were created and reviewed. COMPARISON: CT CT ABDOMEN PELVIS W from 06/29/[address] CHEST PE ABD PELVIS W from 11/25/[address] ABDOMEN PELVIS W from 08/07/2024 FINDINGS: Lack of IV contrast does limit evaluation of the abdominal and pelvic organs. ABDOMEN: Lung Bases: There is a small hiatal hernia. Liver: Normal density. No measurable mass. Gallbladder and biliary tract: No radiodense calculus or biliary ductal dilation. Pancreas: Normal density, no abnormal calcifications or inflammatory process. Spleen: Normal. Kidneys: Normal size, contour and axis.No radiodense stones or obstructive uropathy. No masses seen. There is a retroaortic left renal vein. Adrenal glands: No mass is seen. Lymph nodes: Within normal limits. Abdominal Aorta: Abdominal portion non-dilated. There is atherosclerotic calcification present. PELVIS: Bladder:There is diffuse thickening of the wall of the urinary bladder. Bowel: There is diverticulosis of the colon without evidence of acute diverticulitis. There is no bowel wall thickening or obstruction present. Appendix is unremarkable. Peritoneal cavity: No ascites, collection or mesenteric inflammatory response. No free air. Reproductive organs: The prostate gland may be at the upper limits of normal in size. Bones: Within normal limits. Soft Tissues: There is a small fat containing umbilical hernia. There are small bilateral fat containing inguinal hernias. There is fatty atrophy of the inferior right abdominus rectus muscles. IMPRESSION: 1. There is no evidence of nephrolithiasis or hydronephrosis. 2. Diffuse thickening of the wall of the urinary bladder. This may in part be due to underdistention, cystitis or chronic bladder outlet obstruction should also be considered. Neoplasm is considered less likely but cannot be excluded. 3. Colonic diverticulosis without evidence of acute diverticulitis. 4. Fat containing bilateral inguinal hernias. RADIATION DOSE DELIVERED: 975.8mGy.cm Total DLP DATA REPOSITORY: All CT scans at this facility are submitted to the National Radiology Data Registry (NRDR) Dose Index Registry (DIR) with the [place] [employer] (A[employer]). RADIATION OPTIMIZATION: All CT scans at this facility use at least one of these dose optimization techniques: automated exposure control; mA and/or kV adjustment per patient size (includes targeted exams where dose is matched to clinical indication); or iterative reconstruction.
[2025-07-19 18:06] LABS: Abs Immature Grans 0.03 10^3/uL (0.0-0.06); HCT 47.1 % (40.0-50.0); HGB 16.4 g/dL (13.5-17.5); Immature Grans % 0.3 %; MCH 31.6 pg (27.0-33.0); MCHC 34.8 % (32.0-36.0); MCV 91 fL (80-95); MPV 8.9 fL (8.0-11.0); Platelet Count 265 10^3/uL (130-400); RBC 5.19 10^6/uL (4.36-5.78); RDW 13.1 % (11.8-14.1); RDW-SD 43.4 fL; WBC 9.03 10^3/uL (4.4-10.8)
[2025-07-19] MEDS: ACETAMINOPHEN 1,000 MG/100 ML BAG 400 MG IVPB (18:14)
[2025-07-19] MEDS: Ketorolac 15 MG/ML VIAL IVP (18:15)
[2025-07-19] MEDS: Normal Saline 1,000 ML 1000 ML IV (18:15)
[2025-07-19] MEDS: Droperidol 5 MG/2 ML VIAL 2.5 MG IVP (18:15)
[2025-07-19 18:21] LABS: ALT 32 U/L (16-63); AST 15 U/L (15-37); Albumin 3.6 g/dL (3.4-5.0); Alkaline Phosphatase 80 U/L (46-116); Anion Gap 11.7 mmol/L (3-11); BUN 7 mg/dL (7-18); Bilirubin, Total 2.5 mg/dL (0.2-1.0); CO2 24.3 mmol/L (21.0-32.0); Calcium 9.0 mg/dL (8.5-10.1); Chloride 100 mmol/L (98-107); Glucose 95 mg/dL (74-106); Potassium 3.6 mmol/L (3.5-5.1); Sodium 136 mmol/L (136-145); Total Protein 7.9 g/dL (6.4-8.2)
--- NOTE | 2025-07-19 18:42 | DI.RAD_ITS ---
Exam(s) XR CHEST 2V PA LATERAL EXAM: XR CHEST 2V PA LATERAL CLINICAL HISTORY: left sided pleuritic upper back pain TECHNIQUE: 2D digital imaging was performed of the chest. Two images were obtained. PA and lateral views were obtained. COMPARISON: CR ABD FLAT UPRIGHT PA CHEST from 04/19/2008 CR,XR XR CHEST 2V PA LATERAL from 12/05/2024 FINDINGS: MEDIASTINUM: Normal. HEART: Normal. PULMONARY VASCULATURE: Normal. LUNGS: Clear. PLEURAL SPACE: No pleural effusion or pneumothorax. BONE:Within normal limits for the patient's age. OTHER FINDINGS:Normal. IMPRESSION: No acute pulmonary findings. DATA REPOSITORY: RADIATION DOSE DELIVERED:
--- NOTE | 2025-07-19 19:13 | W.ED.GENAD ---
Discharge Plan Disposition Patient Disposition: Home Discharge Details Clinical Impression: Back pain Primary Care Provider: Marily Luu ED Provider: Richy Field Home Meds and New Rx's Prescriptions: New cyclobenzaprine 5 mg tablet 5 mg PO TID PRNQty: 10 0RF acetaminophen [Tylenol] 325 mg tablet 975 mg PO ONCE PRNQty: 60 0RF No Action lisinopril 40 mg tablet 40 mg PO DAILY meloxicam 15 mg tablet 15 mg PO DAILY PRN (Reason: pain, moderate) Qty: 90 1RF Discharge Instructions Instructions: Upper Back Pain (DC) Additional Instructions: Please follow-up with your primary care provider regarding your visit to the emergency department today. Be sure to discuss results of all test performed here today to include radiology, and laboratory testing as well as results for any pending cultures. Should your symptoms worsen, or if you develop new concerning symptoms, please return immediately emergency department for further evaluation. Discharge Data Discharge Date/Time-TO BE ENTERED AT DEPARTURE: 07/19/25 19:48 HPI General Date/Time Provider Initiated Documentation: 07/19/25 17:21. HPI Narrative: MDM/Narrative: 49-year-old male with acute left mid back and flank pain radiating to groin, 1 episode of vomiting. No fever, chills, SOB, or abdominal pain. Differential Diagnosis: - Renal colic: Pain radiating to groin, nausea, vomiting. Plan: Screening labs, CT renal stone protocol. - Muscle strain: Negative CT, unrevealing labs, pain improved with medication. Plan: Discharge with Flexeril, encourage NSAIDs. ED Course: - Pain medication administered, significant improvement noted - CT negative - Labs unrevealing Final Assessment: Pain improved with medication. CT negative, labs unrevealing. Likely muscle strain. Clinical Impression: - Muscle spasm - Back pain Disposition: - Discharge: Flexeril prescription, encourage NSAIDs, return if new/worsening symptoms. Patient Education: Return if new/worsening symptoms. This document was created with assistance from [employer] The patient consented to its use. HPI: The patient is a 49-year-old male with a known history of hypertension, presenting with acute left-sided mid-back and flank pain persisting for three days. The pain radiates to the groin and is exacerbated by forward flexion. The patient denies experiencing fever, chills, shortness of breath, or abdominal pain. He reports one episode of emesis. ROS: Negative besides as mentioned above Exam: Vital signs: Reviewed. General Appearance: 49-year-old male appears well. HEENT: NCAT, EOMI, not icteric. External ears normal. No rhinorrhea. Moist mucous membranes. Neck: Supple, full range of motion, no observable masses, No meningeal sign. Respiratory: No Respiratory distress. No tachypnea. Cardiovascular: RRR, no edema. Gastrointestinal: Abdomen soft, nontender. Back: Reproducible tenderness in left lateral mid back, no midline tenderness or step-offs. Skin: Warm and dry, no rash. Neurological: No focal neurologic deficits in extremities. Psychiatric: Appropriate for situation. Labs: Laboratory Tests Range/Units 07/19/25 17:58 WBC (4.4-10.8) 10^3/uL 9.03 RBC (4.36-5.78) 10^6/uL 5.19 Hgb (13.5-17.5) g/dL 16.4 Hct (40.0-50.0) % 47.1 MCV (80-95) fL 91 MCH (27.0-33.0) pg 31.6 MCHC (32.0-36.0) % 34.8 RDW (11.8-14.1) % 13.1 Plt Count (130-400) 10^3/uL 265 MPV (8.0-11.0) fL 8.9 Immature Gran % % 0.3 Neutrophils % % 67.6 Lymphocytes % % 23.3 Monocytes % % 7.8 Eosinophils % % 0.6 Basophils % % 0.4 Nucleated RBC % (0.0-0.3) % 0.0 Absolute Neutrophils (1.2-6.7) 10^3/uL 6.11 Absolute Lymphocytes (1.2-3.4) 10^3/uL 2.10 Absolute Monocytes (0.1-0.8) 10^3/uL 0.70 Absolute Eosinophils (0.0-0.7) 10^3/uL 0.05 Absolute Basophils (0.0-0.2) 10^3/uL 0.04 VBG Lactate (<or=2.0) mmol/L 1.5 Sodium (136-145) mmol/L 136 Potassium (3.5-5.1) mmol/L 3.6 Chloride (98-107) mmol/L 100 Carbon Dioxide (21.0-32.0) mmol/L 24.3 Anion Gap (3-11) mmol/L 11.7 H BUN (7-18) mg/dL 7 Creatinine (0.70-1.30) mg/dL 1.1 Est GFR (CKD-EPI 2020) (mL/min/1.73m2) 82.81 Glucose (74-106) mg/dL 95 Calcium (8.5-10.1) mg/dL 9.0 Total Bilirubin (0.2-1.0) mg/dL 2.5 H AST (15-37) U/L 15 ALT (16-63) U/L 32 Alkaline Phosphatase (46-116) U/L 80 Total Protein (6.4-8.2) g/dL 7.9 Albumin (3.4-5.0) g/dL 3.6 Radiology: Exam(s) CT ABDOMEN PELVIS WO EXAM: CT ABDOMEN PELVIS WO CLINICAL HISTORY: concern for left sided renal colic. TECHNIQUE: Imaging Protocol: Axial computed tomography images with coronal and sagittal reformatted images were created and reviewed. COMPARISON: CT CT ABDOMEN PELVIS W from 06/29/[address] CHEST PE ABD PELVIS W from 11/25/[address] ABDOMEN PELVIS W from 08/07/2024 FINDINGS: Lack of IV contrast does limit evaluation of the abdominal and pelvic organs. ABDOMEN: Lung Bases: There is a small hiatal hernia. Liver: Normal density. No measurable mass. Gallbladder and biliary tract: No radiodense calculus or biliary ductal dilation. Pancreas: Normal density, no abnormal calcifications or inflammatory process. Spleen: Normal. Kidneys: Normal size, contour and axis.No radiodense stones or obstructive uropathy. No masses seen. There is a retroaortic left renal vein. Adrenal glands: No mass is seen. Lymph nodes: Within normal limits. Abdominal Aorta: Abdominal portion non-dilated. There is atherosclerotic calcification present. PELVIS: Bladder:There is diffuse thickening of the wall of the urinary bladder. Bowel: There is diverticulosis of the colon without evidence of acute diverticulitis. There is no bowel wall thickening or obstruction present. Appendix is unremarkable. Peritoneal cavity: No ascites, collection or mesenteric inflammatory response. No free air. Reproductive organs: The prostate gland may be at the upper limits of normal in size. Bones: Within normal limits. Soft Tissues: There is a small fat containing umbilical hernia. There are small bilateral fat containing inguinal hernias. There is fatty atrophy of the inferior right abdominus rectus muscles. IMPRESSION: 1. There is no evidence of nephrolithiasis or hydronephrosis. 2. Diffuse thickening of the wall of the urinary bladder. This may in part be due to underdistention, cystitis or chronic bladder outlet obstruction should also be considered. Neoplasm is considered less likely but cannot be excluded. 3. Colonic diverticulosis without evidence of acute diverticulitis. 4. Fat containing bilateral inguinal hernias. Exam(s) XR CHEST 2V PA LATERAL EXAM: XR CHEST 2V PA LATERAL CLINICAL HISTORY: left sided pleuritic upper back pain TECHNIQUE: 2D digital imaging was performed of the chest. Two images were obtained. PA and lateral views were obtained. COMPARISON: CR ABD FLAT UPRIGHT PA CHEST from 04/19/2008 CR,XR XR CHEST 2V PA LATERAL from 12/05/2024 FINDINGS: MEDIASTINUM: Normal. HEART: Normal. PULMONARY VASCULATURE: Normal. LUNGS: Clear. PLEURAL SPACE: No pleural effusion or pneumothorax. BONE:Within normal limits for the patient's age. OTHER FINDINGS:Normal. IMPRESSION: No acute pulmonary findings. Related Data Home Medications Medication Instructions Recorded Confirmed lisinopril 40 mg tablet 40 mg PO DAILY 12/18/24 07/19/25 meloxicam 15 mg tablet 15 mg PO DAILY PRN pain, moderate 06/20/25 07/19/25 #90 tabs acetaminophen 325 mg tablet 975 mg (3 x 325 mg) PO ONCE PRN 07/19/25 (Tylenol) #60 tabs cyclobenzaprine 5 mg tablet 5 mg PO TID PRN #10 tabs 07/19/25 Previous Rx's Medication Instructions Recorded meloxicam 15 mg tablet 15 mg PO DAILY PRN pain, moderate 06/20/25 #90 tabs acetaminophen 325 mg tablet 975 mg (3 x 325 mg) PO ONCE PRN 07/19/25 (Tylenol) #60 tabs cyclobenzaprine 5 mg tablet 5 mg PO TID PRN #10 tabs 07/19/25 Allergies Allergy/AdvReac Type Severity Reaction Status Date / Time Sulfa (Sulfonamide Allergy Severe fatal Verified 07/19/25 17:28 Antibiotics) sulfamethoxazole (From Allergy Severe fatal Verified 07/19/25 17:28 Bactrim) trimethoprim (From Bactrim) Allergy Severe fatal Verified 07/19/25 17:28 General Stated Complaint: FlankPain [place]: 3 Course Vital Signs Vital signs: Vital Signs Temperature 36.6 C 07/19/25 17:23 Pulse 96 H 07/19/25 17:23 Respiratory Rate 18 07/19/25 17:23 Blood Pressure 179/116 H 07/19/25 17:23 Pulse Oximetry 96 07/19/25 17:23 Temperature 36.6 C 07/19/25 17:23 Pulse 96 H 07/19/25 17:23 Respiratory Rate 18 07/19/25 17:23 Blood Pressure 179/116 H 07/19/25 17:23 Pulse Oximetry 96 07/19/25 17:23 Pain Level 5 07/19/25 17:23 Lab/Test Results Lab/Test Results: Laboratory Tests Range/Units 07/19/25 17:58 WBC (4.4-10.8) 10^3/uL 9.03 RBC (4.36-5.78) 10^6/uL 5.19 Hgb (13.5-17.5) g/dL 16.4 Hct (40.0-50.0) % 47.1 MCV (80-95) fL 91 MCH (27.0-33.0) pg 31.6 MCHC (32.0-36.0) % 34.8 RDW (11.8-14.1) % 13.1 Plt Count (130-400) 10^3/uL 265 MPV (8.0-11.0) fL 8.9 Immature Gran % % 0.3 Neutrophils % % 67.6 Lymphocytes % % 23.3 Monocytes % % 7.8 Eosinophils % % 0.6 Basophils % % 0.4 Nucleated RBC % (0.0-0.3) % 0.0 Absolute Neutrophils (1.2-6.7) 10^3/uL 6.11 Absolute Lymphocytes (1.2-3.4) 10^3/uL 2.10 Absolute Monocytes (0.1-0.8) 10^3/uL 0.70 Absolute Eosinophils (0.0-0.7) 10^3/uL 0.05 Absolute Basophils (0.0-0.2) 10^3/uL 0.04 VBG Lactate (<or=2.0) mmol/L 1.5 Sodium (136-145) mmol/L 136 Potassium (3.5-5.1) mmol/L 3.6 Chloride (98-107) mmol/L 100 Carbon Dioxide (21.0-32.0) mmol/L 24.3 Anion Gap (3-11) mmol/L 11.7 H BUN (7-18) mg/dL 7 Creatinine (0.70-1.30) mg/dL 1.1 Est GFR (CKD-EPI 2020) (mL/min/1.73m2) 82.81 Glucose (74-106) mg/dL 95 Calcium (8.5-10.1) mg/dL 9.0 Total Bilirubin (0.2-1.0) mg/dL 2.5 H AST (15-37) U/L 15 ALT (16-63) U/L 32 Alkaline Phosphatase (46-116) U/L 80 Total Protein (6.4-8.2) g/dL 7.9 Albumin (3.4-5.0) g/dL 3.6 PFSH All Active Problems (Updated 07/19/25 @ 19:16 by Richy Field MD) Back pain (Acute) Acute diverticulitis (Acute) Tubular adenoma (Acute) 2019, due 2022 Obesity (Chronic) Osteoarthritis (Chronic) right knee HTN (hypertension) (Acute) Medical History Acute diverticulitis 2018, confirmed by CT at [facility] 12/2021-current episode diagnosed clinically Syncope Alcohol intoxication Lipoma removed 2020 Gout Surgical History History of colonoscopy (~05/2024) History of knee surgery R knee Family History Mother High cholesterol Father , 70 Alcohol abuse Diabetes Sister No problems noted. Sister No problems noted. Brother Cancer Brother No problems noted. Brother No problems noted. Brother No problems noted. Social History Smoking/Tobacco Use Status: Current-Occasional Tobacco Type: cigarettes Tobacco: How many years used: 20 Quit status: has quit before Second Hand Exposure: Yes Smoking risk assessment performed?: Yes Alcohol Intake: current Alcohol Intake frequency: a few times a week Alcohol type: beer Drug use: Daily Substance use type: marijuana Caregiver/Support person: No Household members: other Details: roomate Housing: house Communication Needs: None Pets and animals: Yes Pets and animals: dog(s) Sexually active: Yes Do you think of yourself as: straight/heterosexual Current gender identity: male How often do you talk on the phone with friends or family?: decline to answer How often do you get together with friends or relatives?: decline to answer Do you belong to any clubs or organized social groups?: no Panel score (0-1 are the most socially isolated patients): 0 Seatbelt use: sometimes Helmet use: Yes Helmet use: always Drive intox or ride w/intox driver license examiner: No Do you feel safe at home: Yes Additional Social history: lives alone
[2025-07-19] MEDS: Cyclobenzaprine 10 MG TAB, 3 TABS/BTL PO (19:46)
[2025-07-19 19:47] VITALS: BP 179/116; PULSE 96; RESP 18; TEMP 36.6; O2SAT 96
== END 2025-07-19 19:48 | disposition home or self-care (01) ==
PROVIDERS: Emergency Provider General Practice; PCP Nurse Practitioner Family
DX: M54.6 Pain in thoracic spine (principal); R10.A2 Flank pain, left side; I10 Essential (primary) hypertension
CPT/HCPCS: 80053; 96365; 96366; 96375; 99284; 71046; 74176; 83605; 85025; J0131; J1790; J1885

== ENCOUNTER 2025-07-29 14:12 | Outpatient (CLI) | payer OTHER, SELFPAY ==
[2025-07-30 10:45] LABS: Lyme Ab w Rflx to Lyme Confirm Negative (Negative)
[2025-08-01 15:53] LABS: B. miyamotoi PCR Negative (Negative); Babesia divergens/MO-1 Negative (Negative); Ehrlichia muris eauclairensis Negative (Negative)
== END 2025-07-29 14:13 | disposition home or self-care (01) ==
LOC: LOS 14:13
PROVIDERS: PCP Nurse Practitioner Family; Visit Provider Nurse Practitioner Family
DX: R53.83 Other fatigue (principal); W57.XXXA Bitten or stung by nonvenomous insect and other nonvenomous arthropods, initial encounter; T14.90XA Injury, unspecified, initial encounter
CPT/HCPCS: 36415; 87798; 86618